=== PATIENT | male | born 1950 | race Caucasian/White ===

== ENCOUNTER 2017-06-01 21:02 | Emergency (ER) | payer OTHER ==
--- NOTE | 2017-06-01 21:22 | PDOC ---
Rapid Medical Evaluation Time Seen by Provider: 06/01/17 21:17 Medical Evaluation: 06/01/17 21:17 I have performed a brief in-person evaluation of this patient. The patient presents with a chief complaint of: pain from left hip to abdomen, has not eaten in 2 days, denies f/c/n/v/d, denies urinary symptoms Pertinent physical exam findings: O2 sat 92, fine crackles to b/l lower lobes I have ordered the following: labs, cxr The patient will proceed to the ED for further evaluation. Discharge Disposition - Diagnosis Abdominal pain - Referrals - Patient Instructions - Post Discharge Activity
[2017-06-01 21:23] VITALS: BP 116/75; PULSE 100; TEMP 98.1; BMI 29.6
--- NOTE | 2017-06-01 22:11 | PDOC ---
History of Present Illness - General History Source: Patient Exam Limitations: No Limitations - History of Present Illness Initial Comments: 06/01/17 22:29 The patient is a 66 year old male with no significant PMH (but follows with Dr. Sylvia Jacobs to control blood pressure) who presents to the emergency department with 2 days of bilateral side pain just above the hips bilaterally. He describes his pain as a discomfort localized superior to the hips bilaterally with radiation to the abdomen diffusely. The patient states he has been unable to eat for the past 2 days secondary to his abdominal pain. He denies taking medications for pain. The patient denies fevers or chills. He denies nausea or vomiting. The patent denies diarrhea and constipation. Denies chest pain, shortness of breath, headache and dizziness. Denies dysuria, frequency, urgency and hematuria. Allergies: NKA Past surgical history: None reported. Social history: No reported cigarette, alcohol, or drug use. PCP: Dr. Sylvia Jacobs <Enoc Castillo - Last Filed: 06/01/17 22:27> - General History Source: Patient <AshOrlando dwyer - Last Filed: 06/02/17 01:30> - General Chief Complaint: Pain, Acute Stated Complaint: PAIN Time Seen by Provider: 06/01/17 21:17 Past History <Enoc Castillo - Last Filed: 06/01/17 22:27> - Suicide/Smoking/Psychosocial Hx Smoking History: Never smoked Have you smoked in the past 12 months: No Information on smoking cessation initiated: No Hx Alcohol Use: No Drug/Substance Use Hx: No <Orlando Ibarra - Last Filed: 06/02/17 01:30> - Past Medical History Allergies/Adverse Reactions: Allergies Allergy/AdvReac Type Severity Reaction Status Date / Time No Known Allergies Allergy Verified 06/01/17 21:22 Home Medications: Ambulatory Orders Docusate Sodium [Colace] 100 mg PO DAILY #30 capsule 06/02/17 Ibuprofen 800 mg PO TID #30 tablet 06/02/17 Review of Systems - Review of Systems Able to Perform ROS?: Yes Comments:: 06/01/17 22:29 CONSTITUTIONAL: (+) Loss of appetite. Absent: fever, chills, diaphoresis, generalized weakness, malaise. HEENT: Absent: rhinorrhea, nasal congestion, throat pain, throat swelling, difficulty swallowing, mouth swelling, ear pain, eye pain, visual Changes CARDIOVASCULAR: Absent: chest pain, syncope, palpitations, irregular heart rate, lightheadedness , peripheral edema RESPIRATORY: Absent: cough, shortness of breath, dyspnea with exertion, orthopnea, wheezing, stridor, hemoptysis GASTROINTESTINAL: (+) Diffuse abdominal pain. Absent: abdominal distension, nausea, vomiting, diarrhea, constipation, melena, hematochezia GENITOURINARY: Absent: dysuria, frequency, urgency, hesitancy, hematuria, flank pain, genital pain MUSCULOSKELETAL: (+) Bilateral side pain above hips. Absent: arthralgia, joint swelling SKIN: Absent: rash, itching, pallor HEMATOLOGIC/IMMUNOLOGIC: Absent: easy bleeding, easy bruising, lymphadenopathy, frequent infections ENDOCRINE: Absent: unexplained weight gain, unexplained weight loss, heat intolerance, cold intolerance NEUROLOGIC: Absent: headache, focal weakness or paresthesias, dizziness, unsteady gait, seizure, mental status changes, bladder or bowel incontinence PSYCHIATRIC: Absent: anxiety, depression, suicidal or homicidal ideation, hallucinations. <Enoc Castillo - Last Filed: 06/01/17 22:27> *Physical Exam - Vital Signs Last Vital Signs Temp Pulse Resp BP Pulse Ox 98.1 F 100 H 18 116/75 92 L 06/01/17 21:20 06/01/17 21:20 06/01/17 21:20 06/01/17 21:20 06/01/17 21:20 - Physical Exam Comments: 06/01/17 22:30 GENERAL: Well developed, well nourished. Awake and alert. No acute distress. HEENT: Normocephalic, atraumatic. PERRLA, EOMI. No conjunctival pallor. Sclera are non- icteric. Moist mucous membranes. Oropharynx is clear. NECK: Supple. Full ROM. No JVD. Carotid pulses 2+ and symmetric, without bruits. No thyromegaly. No lymphadenopathy. CARDIOVASCULAR: Regular rate and rhythm. No murmurs, rubs, or gallops. Distal pulses are 2+ and symmetric. PULMONARY: No evidence of respiratory distress. Lungs clear to auscultation bilaterally. No wheezing, rales or rhonchi. ABDOMINAL: (+) Diffuse abdominal tenderness. Soft. Non-distended. No rebound or guarding. No organomegaly. Normoactive bowel sounds. MUSCULOSKELETAL Normal range of motion at all joints. No bony deformities or tenderness. No CVA tenderness. EXTREMITIES: No cyanosis. No clubbing. No edema. No calf tenderness. SKIN: Warm and dry. Normal capillary refill. No rashes. No jaundice. NEUROLOGICAL: Alert, awake, appropriate. Cranial nerves 2-12 intact. No deficits to light touch and temperature in face, upper extremities and lower extremities. No motor deficits in the in face, upper extremities and lower extremities. Normoreflexic in the upper and lower extremities. Normal speech. Toes are downgoing bilaterally. Gait is normal without ataxia. PSYCHIATRIC: Cooperative. Good eye contact. Appropriate mood and affect. <Enoc Castillo - Last Filed: 06/01/17 22:27> - Vital Signs Last Vital Signs Temp Pulse Resp BP Pulse Ox 98.1 F 100 H 18 116/75 92 L 06/01/17 21:20 06/01/17 21:20 06/01/17 21:20 06/01/17 21:20 06/01/17 21:20 <Orlando Ibarra - Last Filed: 06/02/17 01:30> ED Treatment Course - LABORATORY CBC & Chemistry Diagram: 06/01/17 22:45 06/01/17 22:45 <Orlando Ibarra - Last Filed: 06/02/17 01:30> Medical Decision Making - Medical Decision Making 06/02/17 01:28 Dr. Ibarra: The scribe's documentation has been prepared under my direction and personally reviewed by me in its entirery. I confirm that the note above accurately reflects all work, treatment, procedures, and medical decision making performed by me. <Orlando Ibarra - Last Filed: 06/02/17 01:30> *DC/Admit/Observation/Transfer - Attestations Scribe Attestion: 06/01/17 22:30 Documentation prepared by Enoc Castillo, acting as medical transcription radiology for Orlando Ibarra DO. <Enoc Castillo - Last Filed: 06/01/17 22:27> - Discharge Dispostion Admit: No <Orlando Ibarra - Last Filed: 06/02/17 01:30> Diagnosis at time of Disposition: Abdominal pain Qualifiers: Abdominal location: generalized Qualified Code(s): R10.84 - Generalized abdominal pain Diverticulosis Qualifiers: Diverticulosis site: diverticulosis of large intestine Diverticulosis bleeding : diverticulosis without bleeding Qualified Code(s): K57.30 - Diverticulosis of large intestine without perforation or abscess without bleeding - Discharge Dispostion Disposition: HOME Condition at time of disposition: Stable - Prescriptions Prescriptions: Docusate Sodium [Colace] 100 mg PO DAILY #30 capsule Ibuprofen 800 mg PO TID #30 tablet - Referrals Referrals: Sylvia Jacobs MD [Primary Care Provider] - Myles Abel DO [Staff Physician] - Flo Lamb MD [Staff Physician] - - Patient Instructions Printed Discharge Instructions: DI for Diverticulosis, Diverticular Disease ( Alternative Therapy) Additional Instructions: Drink plenty of fluids and eat more roughage ( fruits and vegetables) to decrease chances of constipation. Follow up with your doctor and one of the GI specialist to you. Print Language: MOLDOVAN - Post Discharge Activity
[2017-06-01] MEDS ORDERED: SODIUM CHLORIDE 1,000 ML IV STA (22:13)
[2017-06-01 22:51] LABS: BASO % 0.8 % (0-2.0); EOS % 5.2 % (0-4.5); HEMOGLOBIN 15.7 GM/dL (11.7-16.9); LYMPH % 11.8 % (8-40); MCH 30.3 pg (25.7-33.7); MCHC 34.1 g/dl (32.0-35.9); MEAN CELL VOLUME 89.1 fl (80-96); MEAN PLT VOLUME 8.8 fl (7.5-11.1); NEUT % 76.2 % (42.8-82.8); PLATELET COUNT 142 K/MM3 (134-434); RBC 5.16 M/mm3 (4.00-5.60); WHITE BLOOD COUNT 8.7 K/mm3 (4.0-10.0)
[2017-06-01 23:08] LABS: INR 1.12 (0.82-1.09); PROTHROMBIN TIME (PATIENT) 12.6 SEC (9.98-11.88)
[2017-06-01 23:21] LABS: ALBUMIN 4.2 g/dl (3.4-5.0); ALK PHOS 108 U/L (45-117); ANION GAP 11 (8-16); BILIRUBIN,TOTAL 0.8 mg/dL (0.2-1.0); BLOOD UREA NITROGEN 30 mg/dL (7-18); CALCIUM 9.7 mg/dL (8.5-10.1); CHLORIDE 98 mmol/L (98-107); CO2 28 mmol/L (21-32); CREATININE 1.6 mg/dL (0.7-1.3); GLUCOSE,RANDOM 99 mg/dL (74-106); POTASSIUM 3.9 mmol/L (3.5-5.1); SGOT/AST 13 U/L (15-37); SGPT/ALT 10 U/L (12-78); SODIUM 137 mmol/L (136-145); TOT PROT 8.4 g/dl (6.4-8.2)
[2017-06-02] MEDS ORDERED: KETOROLAC TROMETHAMINE 30 MG/1 ML VIAL IVPUSH ONE (01:21)
[2017-06-02] MEDS ORDERED: KETOROLAC TROMETHAMINE 30 MG/1 ML VIAL ONE (01:36)
== END 2017-06-02 01:53 | disposition home or self-care (01) ==
LOC: JER 21:02
PROC: 3E0333Z Introduction of Anti-inflammatory into Peripheral Vein, Percutaneous Approach (ICD-10-PCS; principal; 2017-06-01)
PROC: 3E0337Z Introduction of Electrolytic and Water Balance Substance into Peripheral Vein, Percutaneous Approach (ICD-10-PCS; 2017-06-01)
DX: R10.84 Generalized abdominal pain (principal); K57.30 Diverticulosis of large intestine without perforation or abscess without bleeding
CPT/HCPCS: 36415; 71046-TC-FY; 74176-TC; 80053; 82550; 83880; 84484; 85025; 85610; 99284-25; J7030

== ENCOUNTER 2017-06-04 10:27 | Emergency (ER) | payer OTHER ==
[2017-06-04 10:32] VITALS: BP 113/66; PULSE 66; TEMP 98; BMI 29.6
--- NOTE | 2017-06-04 10:59 | PDOC ---
History of Present Illness <Boby Ward - Last Filed: 06/04/17 11:16> - General History Source: Patient, Family Exam Limitations: No Limitations - History of Present Illness Initial Comments: 06/04/17 11:58 The patient is a 66 year old male, with a significant past medical history of hypertension, diabetes, gout, and an enlarged prostate, who presents to the emergency department complaining of left sided abdominal pain for approximately 3 days. The patient reports he was seen in the ER on 06/02/17 with similar symptoms and had a CT Abdomen and Pelvis, which revealed diverticulosis without diverticulitis. Patient reports he was discharged with Ibuprofen and Ducolax. However, after waking up the next morning, patient states he developed a rash along the left lower abdomen radiating into his left lower back. Patient reports associated pain and denies any fever, chills, nausea, vomiting, or diarrhea. He denies any dysuria, hematuria, frequency, or urgency. He denies any recent travel or sick contacts. pt still endorses being constipated with hard stools. Allergies: NKDA Past Surgical History: None reported Social History: Non smoker. No ETOH or recreational drug use. PCP: Dr. Sylvia Jacobs <Patricia Hassan - Last Filed: 06/04/17 11:59> - General Chief Complaint: Pain Stated Complaint: REVISIT, ABD PAIN Time Seen by Provider: 06/04/17 10:38 Past History - Past Medical History COPD: No - Immunization History Immunization Up to Date: No - Suicide/Smoking/Psychosocial Hx Smoking History: Never smoked Have you smoked in the past 12 months: No Hx Alcohol Use: No Drug/Substance Use Hx: No Substance Use Type: None <Boby Ward - Last Filed: 06/04/17 11:16> <Patricia Hassan - Last Filed: 06/04/17 11:59> - Past Medical History Allergies/Adverse Reactions: Allergies Allergy/AdvReac Type Severity Reaction Status Date / Time No Known Allergies Allergy Verified 06/04/17 10:32 Home Medications: Ambulatory Orders Docusate Sodium [Colace] 100 mg PO DAILY #30 capsule 06/02/17 Ibuprofen 800 mg PO TID #30 tablet 06/02/17 Allopurinol 300 mg PO DAILY 06/04/17 Dutasteride 0.5 mg PO DAILY 06/04/17 Furosemide [Lasix -] 40 mg PO DAILY 06/04/17 Metformin HCl [Metformin HCl ER] 500 mg PO DAILY 06/04/17 Metoprolol Succinate [Toprol Xl] 100 mg PO DAILY 06/04/17 Olmesartan/Amlodipin/Hcthiazid [Cizlcpm-Udqmzb-Sccp 40-10-25Mg] 1 each PO DAILY 06/04/17 Oxycodone HCl 5 mg PO QID PRN #8 tablet MDD 4 06/04/17 Pioglitazone HCl [Actos] 15 mg PO DAILY 06/04/17 Saxagliptin HCl [Onglyza] 5 mg PO DAILY 06/04/17 Tamsulosin HCl [Flomax] 0.4 mg PO DAILY 06/04/17 Valacyclovir HCl [Valtrex -] 1,000 mg PO TID #41 tablet 06/04/17 Review of Systems - Review of Systems Able to Perform ROS?: Yes Comments:: 06/04/17 11:58 Constitutional: Pt denies Fever, Chills, weakness, HEENT: denies vision changes, sore throat Respiratory: Denies cough, sob, hemoptysis Cardiac: denies chest pain, palpitations, lightheadedness, leg swelling Abd/GI: +Left lower abdominal pain with associated rash. denies nausea, vomiting , blood per rectum, melena, diarrhea : denies dysuria, frequency, discharge Musculoskeletal: denies back pain, joint swelling Skin: +Rash to left lower abdomen radiating to left lower back. denies bruising , erythema Neurological: denies headache, numbness, focal weakness, tingling, ataxia, weakness Hematologic: denies anemia, easy bruising, easy bleeding <Hassan,Giomilsy - Last Filed: 06/04/17 11:59> *Physical Exam - Vital Signs Last Vital Signs Temp Pulse Resp BP Pulse Ox 98 F 66 18 113/66 99 06/04/17 10:29 06/04/17 10:29 06/04/17 10:29 06/04/17 10:29 06/04/17 10:29 <EdBoby - Last Filed: 06/04/17 11:16> - Vital Signs Last Vital Signs Temp Pulse Resp BP Pulse Ox 98 F 66 18 113/66 99 06/04/17 10:29 06/04/17 10:29 06/04/17 10:29 06/04/17 10:29 06/04/17 10:29 - Physical Exam Comments: 06/04/17 11:58 GENERAL: The patient is awake, alert, and fully oriented, Nontoxic - in no acute distress. HEAD: Normocephalic, atraumatic. NECK: Normal range of motion, supple LUNGS: scant rales b/l, HEART: Regular rate and rhythm, normal S1 and S2 without murmur, rub or gallop. ABDOMEN: Soft, nontender, normoactive bowel sounds. No guarding, no rebound. . No CVA tenderness EXTREMITIES: Normal range of motion, no edema. NEUROLOGICAL: No facial assymetry, Normal speech, SKIN: +vesicular rash with erythemadous base on the LLQ along ~T10 dermatome <Patricia Hassan - Last Filed: 06/04/17 11:59> Medical Decision Making - Medical Decision Making 06/04/17 10:56 hx of gout, htn, was here recently for evaluation of abdominal pain with a negative workup and d/ c with treatment for constipation. pt notes that the day they were discharged, they noticed development of a rash in the LLQ. on exam the pt has a erythemdous rash with vesicles. no f/c, n/v/d pts rash c/w shingles will treat with valtrex and pmd fu will give rx for percocet for breakthrough pain I discussed the physical exam findings, ancillary test results and final diagnoses with the patient. I answered all of the patient's questions. The patient was satisfied with the care received and felt comfortable with the discharge plan and treatment plan. The patient will call their primary care physician within 24 hours to arrange follow-up and will return to the Emergency Department with any new, persistent or worsening symptoms. A portion of this note was documented by scribe services under my direction. I have reviewed the details of the note, within reason, and agree with the documentation with the following case summary and management plan written by me <Boby Ward - Last Filed: 06/04/17 11:16> *DC/Admit/Observation/Transfer - Discharge Dispostion Admit: No <Boby Ward - Last Filed: 06/04/17 11:16> - Attestations Scribe Attestion: 06/04/17 11:59 Documentation prepared by Patricia Hassan, acting as medical coder for Boby Ward MD. <Patricia Hassan - Last Filed: 06/04/17 11:59> Diagnosis at time of Disposition: Shingles Qualifiers: Herpes zoster complications: without complications Qualified Code(s): B02.9 - Zoster without complications - Discharge Dispostion Disposition: HOME Condition at time of disposition: Stable - Prescriptions Prescriptions: Oxycodone HCl 5 mg PO QID PRN #8 tablet MDD 4 PRN Reason: Severe Pain Valacyclovir HCl [Valtrex -] 1,000 mg PO TID #41 tablet - Referrals Referrals: Sylvia Jacobs MD [Primary Care Provider] - - Patient Instructions Printed Discharge Instructions: DI for Shingles Additional Instructions: Return to the emergency department immediately with ANY new, persistent or worsening symptoms. Take the Valtrex as prescribed Take Tylenol as needed for pain. If you have further pain you may take the oxycodone, if you take the oxycodone do not work or drive. You MUST call and follow up with your doctor in 1 week for further evaluation of your symptoms. Results were discussed with you. Please make sure your doctor reviews the results of your emergency evaluation. Print Language: YAKUT - Post Discharge Activity
== END 2017-06-04 11:28 | disposition home or self-care (01) ==
LOC: JER 10:27
DX: B02.9 Zoster without complications (principal); I10 Essential (primary) hypertension; E11.9 Type 2 diabetes mellitus without complications; Z79.84 Long term (current) use of oral hypoglycemic drugs; M10.9 Gout, unspecified; N40.0 Benign prostatic hyperplasia without lower urinary tract symptoms
CPT/HCPCS: 99282-25

== ENCOUNTER 2017-09-06 14:37 | Inpatient (IN) | payer OTHER ==
--- NOTE | 2017-09-06 15:08 | PDOC ---
History of Present Illness - General Chief Complaint: SIRS, Suspected/Possible Stated Complaint: SHINGLES, FEVER, WEAKNESS Time Seen by Provider: 09/06/17 15:05 History Source: Patient Exam Limitations: No Limitations - History of Present Illness Initial Comments: 09/06/17 16:34 66m with pmh of dormant Lupus, dm2, htn and shingles presents to the ED for 3 days of fluctuating fever (103 orally at home) and lower back pain. Shingles in the lower left flank 3 weeks ago treated with acyclovir, now with residual neuropathy along dermatome. PAtient has been increasingly short of breath and feverish but denies headache, neck pain. Past History - Past Medical History Allergies/Adverse Reactions: Allergies Allergy/AdvReac Type Severity Reaction Status Date / Time No Known Allergies Allergy Verified 09/06/17 15:14 Home Medications: Ambulatory Orders Allopurinol 300 mg PO DAILY 06/04/17 Metformin HCl [Metformin HCl ER] 500 mg PO DAILY 06/04/17 Metoprolol Succinate [Toprol Xl] 100 mg PO DAILY 06/04/17 Olmesartan/Amlodipin/Hcthiazid [Vjrferh-Pguvzl-Kbcg 40-10-25Mg] 1 each PO DAILY 06/04/17 Tamsulosin HCl [Flomax] 0.4 mg PO DAILY 06/04/17 COPD: No HTN: Yes - Immunization History Immunization Up to Date: No - Suicide/Smoking/Psychosocial Hx Smoking History: Never smoked Have you smoked in the past 12 months: No Hx Alcohol Use: No Drug/Substance Use Hx: No Substance Use Type: None Review of Systems - Review of Systems Able to Perform ROS?: Yes Is the patient limited Thai proficient: No Constitutional: Yes: See HPI, Fever HEENTM: No: Symptoms Reported Respiratory: Yes: Cough Cardiac (ROS): No: Symptoms Reported ABD/GI: No: Symptoms Reported : No: Symptoms Reported Musculoskeletal: No: Symptoms Reported Integumentary: No: Symptoms Reported Neurological: No: See HPI, Numbness, Paresthesia, Tingling, Weakness All Other Systems: Reviewed and Negative *Physical Exam - Physical Exam General Appearance: Yes: Nourished, Appropriately Dressed. No: Apparent Distress HEENT: positive: EOMI, WENDI, Normal ENT Inspection Neck: positive: Trachea midline, Normal Thyroid. negative: Tender, Decreased range of motion, Rigidity Respiratory/Chest: positive: Lungs Clear, Normal Breath Sounds, Rapid RR. negative: Chest Tender, Wheezing Cardiovascular: positive: Regular Rhythm, S1, S2, Tachycardia Gastrointestinal/Abdominal: positive: Normal Bowel Sounds, Flat, Soft. negative : Tender Rectal Exam: positive: normal exam, normal rectal tone Musculoskeletal: positive: Vertebral Tenderness (over lumbar area , and paraspinal), Other (shingle scars along dermatome over left flank. ) Extremity: positive: Normal Capillary Refill, Normal Inspection, Normal Range of Motion Integumentary: positive: Normal Color, Dry, Warm Neurologic: positive: Fully Oriented, Alert, Normal Mood/Affect ED Treatment Course - LABORATORY CBC & Chemistry Diagram: 09/06/17 16:15 09/06/17 16:15 Medical Decision Making - Medical Decision Making 09/06/17 17:35 Septic protocol ordered. This is likely a bacterial superinfection possible secondary to shingles, spinal abscess. 09/06/17 17:44 In addition to septic workup, will do Ct scan with IV contrast of lumbar spine to r/o abscess. Noted that patient's creatinine is 1.5, signed consent form. Continuous hydration given. Patient admitted to med surg. 09/06/17 17:[address] Alonzo, infectious disease and admitted to hospitalist 09/06/17 18:47 Ct Scan abd with contrast Pending 09/06/17 19:30 Patient signed out to Dr. Guaman *DC/Admit/Observation/Transfer Diagnosis at time of Disposition: Sepsis - Referrals - Patient Instructions - Post Discharge Activity
[2017-09-06] MEDS ORDERED: SODIUM CHLORIDE 1,000 ML IV STA ×2 (15:36→17:38)
[2017-09-06] MEDS ORDERED: ACETAMINOPHEN 1000 MG/100 ML VIAL (NON FORMULARY) IVPB ONE (15:46)
--- NOTE | 2017-09-06 16:12 | CON.ID ---
Consult Consult Specialty:: infectious diseases Referred by:: kingston Reason for Consultation:: sepsis,fever,back pain - History of Present Illness Chief Complaint: sob fever,shaking and chills History of Present Illness: 66 year old male with a significant past medical history of hypertension, diabetes, gout, dormant lupus, diabetes, recent shingles (05/2017), interstitial lung disease and an enlarged prostate came to the ER today with complaints of 3 days of fever and chills and a temp of 103F at home with left lower back pain and tenderness and also in the lower lumbar region patients family with him in the room and mentions that in the last 3 days patient has taken tyelnolol but the fever kept on coming and was associated with chills In the last 3 weeks, patient has been feeling fatigued and has had intermittent chills at home, worse in the past few days. Patient's family has had to apply ice and cold compresses to get his fever down. currently patient looks very sick and is having chills and fevers He is awake and alert - History Source History Provided By: Patient, Family Member Limitations to Obtaining History: No Limitations - Alcohol/Substance Use Hx Alcohol Use: No - Smoking History Smoking history: Never smoked Have you smoked in the past 12 months: No Home Medications - Allergies Allergies/Adverse Reactions: Allergies Allergy/AdvReac Type Severity Reaction Status Date / Time No Known Allergies Allergy Verified 09/07/17 03:37 - Home Medications Home Medications: Ambulatory Orders Allopurinol 300 mg PO DAILY 06/04/17 Metformin HCl [Metformin HCl ER] 500 mg PO DAILY 06/04/17 Metoprolol Succinate [Toprol Xl] 100 mg PO DAILY 06/04/17 Olmesartan/Amlodipin/Hcthiazid [Tgyxojx-Jwjsol-Xziq 40-10-25Mg] 1 each PO DAILY 06/04/17 Tamsulosin HCl [Flomax] 0.4 mg PO DAILY 06/04/17 Review of Systems - Review of Systems Constitutional: reports: Chills, Fever Eyes: reports: No Symptoms HENT: reports: No Symptoms Neck: reports: No Symptoms Cardiovascular: reports: No Symptoms Respiratory: reports: SOB, SOB on Exertion Gastrointestinal: reports: No Symptoms Genitourinary: reports: No Symptoms Musculoskeletal: reports: No Symptoms Integumentary: reports: Other (neuropathic pain) Neurological: reports: No Symptoms Endocrine: reports: No Symptoms Hematology/Lymphatic: reports: No Symptoms Psychiatric: reports: No Symptoms Physical Exam Vital Signs: Vital Signs Temperature 101.5 F H 09/06/17 15:11 Pulse Rate 140 H 09/06/17 15:11 Respiratory Rate 18 09/06/17 15:11 Blood Pressure 130/67 09/06/17 15:11 O2 Sat by Pulse Oximetry (%) 100 09/06/17 15:11 Constitutional: Yes: Well Nourished, Calm, Moderate Distress Eyes: Yes: Conjunctiva Clear HENT: Yes: Atraumatic, Normocephalic Neck: Yes: Supple, Trachea Midline Cardiovascular: Yes: Regular Rate and Rhythm, Tachycardia Respiratory: Yes: On Nasal O2, Poor Air Entry, Rhonchi Gastrointestinal: Yes: Normal Bowel Sounds, Soft Musculoskeletal: Yes: WNL Extremities: Yes: WNL Neurological: Yes: Alert, Oriented Psychiatric: Yes: Alert, Oriented Imaging - Results Chest X-ray: Report Reviewed, Image Reviewed Assessment/Plan this patient coming with shaking chills and fever and also c/o of back pain with sob patient has known history of shingles couple of months back ,no eruptions or signs of active disease patient looks very sick and i am worried about his back pain i discussed this with the family i think if there is any detoriation patient should be in the icu resp failure sepsis fever pneumonia chills plan will start patient on broad spectrum abx await for all cx reports no other issues close monitoring of the patient rest as per the team please get ct of the lumbar spine to r/o abscess
[2017-09-06] MEDS ORDERED: VANCOMYCIN 1,250 MG in DEXTROSE 5%-WATER - 250 ML IVPB ONE ×2 (16:15→16:33)
[2017-09-06] MEDS ORDERED: ACETAMINOPHEN INJECTION 100 ML IVPB ONE (16:32)
[2017-09-06] MEDS ORDERED: PIPERACILLIN/TAZOB 3.375 GM 3.375 GM/50 ML BAG IVPB ONE (16:33)
[2017-09-06] MEDS ORDERED: ACYCLOVIR 500 MG (50MG/ML) VIAL IVPUSH ONE (16:39)
[2017-09-06 17:09] LABS: BASO % 0.3 % (0-2.0); EOS % 0.4 % (0-4.5); HEMATOCRIT 39.8 % (35.4-49); HEMOGLOBIN 13.5 GM/dL (11.7-16.9); LYMPH % 4.6 % (8-40); MCH 30.9 pg (25.7-33.7); MCHC 33.9 g/dl (32.0-35.9); MEAN CELL VOLUME 91.3 fl (80-96); MEAN PLT VOLUME 9.4 fl (7.5-11.1); MONO % 5.2 % (3.8-10.2); NEUT % 89.5 % (42.8-82.8); PLATELET COUNT 159 K/MM3 (134-434); RBC 4.36 M/mm3 (4.00-5.60); RDW 16.3 % (11.9-15.9); WHITE BLOOD COUNT 9.3 K/mm3 (4.0-10.0)
[2017-09-06 17:11] LABS: INR 1.27 (0.82-1.09); PROTHROMBIN TIME (PATIENT) 14.3 SEC (9.7-13.0)
[2017-09-06 17:14] LABS: ACTIVATED PTT 39.2 SECONDS (25.2-36.5); ALBUMIN 3.6 g/dl (3.4-5.0); ANION GAP 11 (8-16); BLOOD UREA NITROGEN 29 mg/dL (7-18); CALCIUM 9.3 mg/dL (8.5-10.1); CHLORIDE 103 mmol/L (98-107); CO2 21 mmol/L (21-32); CREATININE 1.5 mg/dL (0.7-1.3); GLUCOSE,RANDOM 145 mg/dL (74-106); POTASSIUM 4.1 mmol/L (3.5-5.1); SGOT/AST 44 U/L (15-37); SGPT/ALT 51 U/L (12-78); SODIUM 135 mmol/L (136-145)
[2017-09-06 17:16] LABS: ALK PHOS 88 U/L (45-117); BILIRUBIN,TOTAL 0.7 mg/dL (0.2-1.0); TOT PROT 8.2 g/dl (6.4-8.2)
[2017-09-06 17:22] LABS: VENOUS PC02 35.7 mmHg (38-52); VENOUS PH 7.4 (7.32-7.42); VENOUS PO2 37.3 mmHg (28-48)
[2017-09-06] MEDS ORDERED: ACYCLOVIR INJECTION 800 MG in DEXTROSE 5%-WATER - 100 ML IVPB ONE (17:27)
[2017-09-06] MEDS: PIPERACILLIN/TAZOB 3.375 GM 3.375 GM in DEXTROSE 5%-WATER - 50 ML IVPB SCH (17:30)
[2017-09-06] MEDS ORDERED: PIPERACILLIN/TAZOB 3.375 GM 3.375 GM in DEXTROSE 5%-WATER - 50 ML IVPB SCH (18:00)
--- NOTE | 2017-09-06 18:16 | PN ---
Physical Exam: SUBJECTIVE: Patient seen and examined OBJECTIVE: Vital Signs Period Temp Pulse Resp BP Sys/Paul Pulse Ox Last 24 Hr 100.1 F-101.5 F 112-140 18 130-131/67-71 98-100 GENERAL: The patient is awake, alert, and fully oriented, in no acute distress. HEAD: Normal with no signs of trauma. EYES: PERRL, extraocular movements intact, sclera anicteric, conjunctiva clear. No ptosis. ENT: Ears normal, nares patent, oropharynx clear without exudates, moist mucous membranes. NECK: Trachea midline, full range of motion, supple. LUNGS: Breath sounds equal, clear to auscultation bilaterally, no wheezes, no crackles, no accessory muscle use. HEART: Regular rate and rhythm, S1, S2 without murmur, rub or gallop. ABDOMEN: Soft, nontender, nondistended, normoactive bowel sounds, no guarding, no rebound, no hepatosplenomegaly, no masses. EXTREMITIES: 2+ pulses, warm, well-perfused, no edema. NEUROLOGICAL: Cranial nerves II through XII grossly intact. Normal speech, gait not observed. PSYCH: Normal mood, normal affect. SKIN: Warm, dry, normal turgor, no rashes or lesions noted Laboratory Results - last 24 hr 09/06/17 09/06/17 09/06/17 16:15 16:15 16:15 WBC 9.3 RBC 4.36 Hgb 13.5 Hct 39.8 MCV 91.3 MCH 30.9 MCHC 33.9 RDW 16.3 H Plt Count 159 MPV 9.4 Absolute Neuts (auto) 8.3 Neutrophils % 89.5 H Lymphocytes % 4.6 L D Monocytes % 5.2 Eosinophils % 0.4 D Basophils % 0.3 Nucleated RBC % 0 PT with INR 14.30 H INR 1.27 H PTT (Actin FS) 39.2 H VBG pH 7.40 POC VBG pCO2 35.7 L POC VBG pO2 37.3 Mixed VBG HCO3 21.6 Sodium Potassium Chloride Carbon Dioxide Anion Gap BUN Creatinine Creat Clearance w eGFR Random Glucose Lactic Acid Calcium Total Bilirubin AST ALT Alkaline Phosphatase Troponin I Total Protein Albumin 09/06/17 09/06/17 09/06/17 16:15 16:15 16:15 WBC RBC Hgb Hct MCV MCH MCHC RDW Plt Count MPV Absolute Neuts (auto) Neutrophils % Lymphocytes % Monocytes % Eosinophils % Basophils % Nucleated RBC % PT with INR INR PTT (Actin FS) VBG pH POC VBG pCO2 POC VBG pO2 Mixed VBG HCO3 Sodium 135 L Potassium 4.1 Chloride 103 Carbon Dioxide 21 D Anion Gap 11 BUN 29 H Creatinine 1.5 H Creat Clearance w eGFR 46.54 Random Glucose 145 H D Lactic Acid 1.7 Calcium 9.3 Total Bilirubin 0.7 AST 44 H D ALT 51 D Alkaline Phosphatase 88 Troponin I 0.02 D Total Protein 8.2 Albumin 3.6 Active Medications Generic Name Dose Route Start Last Admin Trade Name Freq PRN Reason Stop Dose Admin Vancomycin HCl 1,250 mg/ 250 mls @ 250 mls/2 hr 09/06/17 16:33 Dextrose IVPB 09/06/17 18:32 ONCE ONE Protocol Piperacillin Sod/Tazobactam 50 mls @ 100 mls/hr 09/06/17 16:33 09/06/17 17:30 Sod 3.375 gm/ Dextrose IVPB 100 mls/hr Q8H-IV VANITA Administration Protocol Sodium Chloride 1,000 mls @ 1,000 mls/hr 09/06/17 17:38 09/06/17 17:45 Normal Saline - IV 09/06/17 18:37 1,000 mls/hr ASDIR STA Administration ASSESSMENT/PLAN:
--- NOTE | 2017-09-06 18:35 | PDOC ---
Attending Attestation - HPI HPI: 09/06/17 18:46 The patient is a 66 year old male with a significant past medical history of diabetes, hypertension, dormant Lupus, and shingles who presents to the emergency department for evaluation of 3 days of fever and lower back pain. The patient reports moderate back pain localized on his spine. He reports associated symptoms of shortness of breath and fever with T Max 103. He reports prior history of shingles in the left flank 3 weeks ago which was treated with acyclovir. The patient denies chest pain, neck pain headache, and dizziness. Denies chills , nausea, vomiting, any bowel/urinary symptoms. Allergies: NKDA Social History: No reported alcohol, cigarette, or drug use. - Physicial Exam PE: Vitals: Triage Vital signs reviewed General Appearance: no acute distress, well nourished well developed, Head: Atraumatic, normocephalic Eyes: Pupils equal reactive round, extraocular movement intact Neck: Supple Chest Wall: Nontender Cardiac: Regular rate and rhythm, no murmurs, no rubs, no gallops, Lungs: Clear to auscultation bilateral, good air movement bilaterally, Abdomen: Soft, nondistended, nontender to palpation Back: (+)diffuse tenderness to palpation along lower spine. Extremities: Full range of motion to all extremities, no cyanosis, clubbing, or edema Skin: (+)Shingles chronic to left lower back. Warm and dry. Neuro: (+)Weak. Psych: normal mood, normal affect. - Medical Decision Making The patient is a 66 year old male with a significant past medical history of diabetes, hypertension, dormant Lupus, and shingles who presents to the emergency department for evaluation of 3 days of fever and lower back pain. Plan: Chest X-Ray EKG Labs UA <Scott Bolton - Last Filed: 09/06/17 18:46> - Resident Resident Name: Nito Russell - ED Attending Attestation I have performed the following: I have examined & evaluated the patient, The case was reviewed & discussed with the resident, I agree w/resident's findings & plan, Exceptions are as noted - Medical Decision Making Patient presented to the emergency department with 3 day history of fever low back pain. Patient with three-week history of shingles infection in similar distribution Given concern for possible deep tissue spread and spinal cord involvement CT lumbar spine has been ordered patient has been broadly covered with broad- spectrum antibiotics Infectious disease has been consult. Patient with normal neurologic examination. He has no weakness no numbness good reflexes and a normal rectal examination Patient to be admitted to medicine for further management. <Yousuf Mendoza - Last Filed: 09/06/17 19:53> Attestations - Attestations Documentation prepared by Scott Bolton, acting as medical detailist for Yousuf Mendoza MD. <Scott Bolton - Last Filed: 09/06/17 18:46>
--- NOTE | 2017-09-06 21:58 | HP ---
CHIEF COMPLAINT: fever, chills, general malaise PCP: Dr. Sylvia Block HISTORY OF PRESENT ILLNESS: Patient is a 66 year old male with a significant past medical history of hypertension, diabetes, gout, dormant lupus, diabetes, recent shingles (05/2017) , interstitial lung disease and an enlarged prostate. He comes to the ER today with complaints of 3 days of fever and chills and a temp of 103F at home with left lower back pain and tenderness. 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 Patient also endorses weakness and profound fatigue. His family at bedside and report that in the last 3 weeks, patient has been feeling fatigued and has had intermittent chills at home, worse in the past few days. Patient's family has had to apply ice and cold compresses to get his fever down. Based on the patient's symptoms, and recent shingles outbreak, will initiated septic protocol. A CT scan of lumbar spine was done to rule out abscess. ER course was notable for: (1) chest xray with acute and chronic lung changes, extensive interstitial lung disease on CT scan 06/08 (2) sepsis. heart rate 140s, tachycardia, 103.F, burke (3) BURKE 1.5 (4) persistent back pain an tenderness (5) zosyn, vanco, acyclovir Recent Travel: PAST MEDICAL HISTORY: PAST SURGICAL HISTORY: Social History: Smoking: n/a Alcohol: n.a Drugs: n.a Family History: Allergies No Known Allergies Allergy (Verified 09/06/17 15:14) HOME MEDICATIONS: Home Medications Medication Instructions Recorded Allopurinol 300 mg PO DAILY 06/04/17 Metformin HCl [Metformin HCl ER] 500 mg PO DAILY 06/04/17 Metoprolol Succinate [Toprol Xl] 100 mg PO DAILY 06/04/17 Olmesartan/Amlodipin/Hcthiazid 1 each PO DAILY 06/04/17 [[id number] 40-10-25Mg] Tamsulosin HCl [Flomax] 0.4 mg PO DAILY 06/04/17 PHYSICAL EXAMINATION Vital Signs - 24 hr 09/06/17 09/06/17 09/06/17 15:11 17:22 17:45 Temperature 101.5 F H 100.1 F H Pulse Rate 140 H Pulse Rate [ 125 H 112 H Apical] Respiratory 18 Rate Blood Pressure 130/67 Blood Pressure 131/71 [Left Arm] O2 Sat by Pulse 100 98 98 Oximetry (%) GENERAL: Awake, alert, and fully oriented, in no acute distress. HEAD: Normal with no signs of trauma. EYES: Pupils equal, round and reactive to light, extraocular movements intact, sclera anicteric, conjunctiva clear. No lid lag. EARS, NOSE, THROAT: Ears normal, nares patent, oropharynx clear without exudates. Moist mucous membranes. NECK: Normal range of motion, supple without lymphadenopathy, JVD, or masses. LUNGS: diminished lungs sounds bilaterally, no wheezing, on 2 liters of nasal cannula HEART: tachycardia 140s on admission ABDOMEN: Soft, nontender, not distended, normoactive bowel sounds, no guarding, no rebound, no masses. No hepatomegaly or splenomegaly. MUSCULOSKELETAL: Normal range of motion at all joints. No bony deformities or tenderness. No CVA tenderness. UPPER EXTREMITIES: No peripheral edema. LOWER EXTREMITIES: No peripheral edema. NEUROLOGICAL: Normal speech. PSYCHIATRIC: Cooperative. Good eye contact. Appropriate mood and affect. SKIN: left flank dermatone with evidence of recent shingles outbreak, no open lesions. Laboratory Results - last 24 hr 09/06/17 09/06/17 09/06/17 16:15 16:15 16:15 WBC 9.3 RBC 4.36 Hgb 13.5 Hct 39.8 MCV 91.3 MCH 30.9 MCHC 33.9 RDW 16.3 H Plt Count 159 MPV 9.4 Absolute Neuts (auto) 8.3 Neutrophils % 89.5 H Lymphocytes % 4.6 L D Monocytes % 5.2 Eosinophils % 0.4 D Basophils % 0.3 Nucleated RBC % 0 PT with INR 14.30 H INR 1.27 H PTT (Actin FS) 39.2 H VBG pH 7.40 POC VBG pCO2 35.7 L POC VBG pO2 37.3 Mixed VBG HCO3 21.6 Sodium Potassium Chloride Carbon Dioxide Anion Gap BUN Creatinine Creat Clearance w eGFR Random Glucose Lactic Acid Calcium Total Bilirubin AST ALT Alkaline Phosphatase Troponin I Total Protein Albumin 09/06/17 09/06/17 09/06/17 16:15 16:15 16:15 WBC RBC Hgb Hct MCV MCH MCHC RDW Plt Count MPV Absolute Neuts (auto) Neutrophils % Lymphocytes % Monocytes % Eosinophils % Basophils % Nucleated RBC % PT with INR INR PTT (Actin FS) VBG pH POC VBG pCO2 POC VBG pO2 Mixed VBG HCO3 Sodium 135 L Potassium 4.1 Chloride 103 Carbon Dioxide 21 D Anion Gap 11 BUN 29 H Creatinine 1.5 H Creat Clearance w eGFR 46.54 Random Glucose 145 H D Lactic Acid 1.7 Calcium 9.3 Total Bilirubin 0.7 AST 44 H D ALT 51 D Alkaline Phosphatase 88 Troponin I 0.02 D Total Protein 8.2 Albumin 3.6 ASSESSMENT/PLAN: Patient is a 66 year old male with a significant past medical history of hypertension, diabetes, gout, dormant lupus, diabetes, recent shingles (05/2017) , interstitial lung disease and an enlarged prostate. He comes to the ER today with complaints of 3 days of fever and chills and a temp of 103F at home with left lower back pain and tenderness. 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 ID/Sepsis: Unclear etiology, recent shingles outbreak with general malaise after, pt felt like he never fully recovered. Now chest xray shows acute on chronic changes and notably short of breath at rest. Will consult pulm. on nasal cannula @ 2 liters. Duonebs for shortness of breath. Has history of interstitial lung disease seen on CT done here 05/2017. Given vanco, zosyn and acyclovir in the ED. As per ID, no further need for acyclovir. Tylenol for fevers. Lactic acid within normal limits. Will continue to hydrate. Blood and urine cultures pending Recent shingles 3 months ago, left flank: No open lesions, skin appears healed. Back pain and tenderness noted, CT lumbar spine ordered to rule out abscess. Consider HIV testing. Pulmonary Interstitial lung disease/shortness of breath. On oxygen support, monitor airway. duonebs. Pulm. consult. Card: Hypertension: hold cardiac medications in the setting of sepsis. Endocrine: Diabetes: hold metformin. Start SS. : Enlarged prostated: monitor intake and ouput Renal BURKE: Hydrate. Renal consulted by ED provider. fen normal saline @ 75 monitor electrolytes regular diet as tolerated prophy Heparin Protonix Visit type - Emergency Visit Emergency Visit: Yes ED Registration Date: 09/07/17 Care time: The patient presented to the Emergency Department on the above date and was hospitalized for further evaluation of their emergent condition. - New Patient This patient is new to me today: Yes Date on this admission: 09/07/17 - Critical Care Critical Care patient: No Hospitalist Screening - Colonoscopy Questionnaire Colonoscopy Questionnaire: Colonoscopy Questionnaire - Patient: 50 - 75 years old and never had a screening colonoscopy: Unknown History of colon or rectal polyps, or CA: Unknown History of IBD, Crohn's disease or UC: Unknown History of abdominal radiation therapy as a child: Unknown - Relative: 1 with colon or rectal CA, or polyps at age 60 or younger: Unknown Colon or rectal CA diagnosed at age 45 or younger: Unknown Multiple relatives with colon or rectal CA: Unknown - Outcome: Screening Result: Negative Screen
[2017-09-06] MEDS: ALBUTEROL SO4 2.5/IPRATROPIUM 0.5 INH SOL 3 ML VIAL.NEB. NEB SCH (23:00)
[2017-09-06] MEDS: INSULIN SLIDING SCALE (NOVOLOG) 1 VIAL SQ SCH (23:10)
[2017-09-06] MEDS ORDERED: HEPARIN NA (PORCINE) 5,000 UNITS/ML 1ML VIAL ONE (23:12)
[2017-09-06] MEDS ORDERED: ALBUTEROL SO4 2.5/IPRATROPIUM 0.5 INH SOL 3 ML VIAL.NEB. NEB ONE (23:12)
[2017-09-06] MEDS: HEPARIN NA (PORCINE) 5,000 UNITS/ML 1ML VIAL SQ SCH (23:28)
[2017-09-07] MEDS ORDERED: ACETAMINOPHEN 1000 MG/100 ML VIAL (NON FORMULARY) IVPB ONE (00:06)
[2017-09-07] MEDS ORDERED: SODIUM CHLORIDE 1,000 ML IV STA (00:06)
[2017-09-07] MEDS ORDERED: ACETAMINOPHEN INJECTION 100 ML IVPB ONE (00:07)
[2017-09-07] MEDS ORDERED: IBUPROFEN 400 MG TABLET (FP) PO ONE ×2 (01:24→01:56)
[2017-09-07 02:30] LABS: URINE APPEARANCE CLEAR; URINE BILIRUBIN NEGATIVE (<2.0 mg/dL); URINE COLOR LTYELLOW; URINE GLUCOSE (UA) 1+ (NEGATIVE); URINE KETONE TRACE (NEGATIVE); URINE LEUK ESTERASE NEGATIVE (NEGATIVE); URINE NITRITE NEGATIVE (NEGATIVE); URINE UROBILINOGEN NEGATIVE mg/dL (0.2-1.0)
[2017-09-07] MEDS ORDERED: PIPERACILLIN/TAZOB 3.375 GM 3.375 GM/50 ML BAG IVPB ONE ×3 (02:31→18:55)
[2017-09-07 02:36] LABS: URINE PROTEIN 1+ (NEGATIVE)
[2017-09-07 02:38] LABS: URINE BACTERIA RARE /hpf (NONE SEEN); URINE MUCUS RARE
[2017-09-07] MEDS: PIPERACILLIN/TAZOB 3.375 GM 3.375 GM in DEXTROSE 5%-WATER - 50 ML IVPB SCH ×3 (02:40→18:30)
[2017-09-07] MEDS: HEPARIN NA (PORCINE) 5,000 UNITS/ML 1ML VIAL SQ SCH ×3 (06:15→23:13)
[2017-09-07] MEDS ORDERED: HEPARIN NA (PORCINE) 5,000 UNITS/ML 1ML VIAL ONE ×2 (06:26→14:14)
[2017-09-07] MEDS: INSULIN SLIDING SCALE (NOVOLOG) 1 VIAL SQ SCH ×4 (06:45→23:14)
[2017-09-07] MEDS ORDERED: INSULIN (NOVOLOG) ASPART 100 UNITS/ML 10ML VIAL ONE ×2 (06:48→17:02)
[2017-09-07] MEDS ORDERED: ACETAMINOPHEN 325 MG TABLET (FP) PO PRN ×2 (07:40→21:55)
[2017-09-07 08:15] LABS: BASO % 0.5 % (0-2.0); EOS % 0.1 % (0-4.5); HEMATOCRIT 32.7 % (35.4-49); MCH 30.7 pg (25.7-33.7); MCHC 33.6 g/dl (32.0-35.9); MEAN CELL VOLUME 91.3 fl (80-96); MEAN PLT VOLUME 9.4 fl (7.5-11.1); MONO % 7.9 % (3.8-10.2); NEUT % 83.5 % (42.8-82.8); PLATELET COUNT 120 K/MM3 (134-434); RBC 3.58 M/mm3 (4.00-5.60); RDW 15.8 % (11.9-15.9); WHITE BLOOD COUNT 7.3 K/mm3 (4.0-10.0)
[2017-09-07] MEDS: ALBUTEROL SO4 2.5/IPRATROPIUM 0.5 INH SOL 3 ML VIAL.NEB. NEB SCH ×3 (08:25→16:33)
[2017-09-07 08:28] LABS: ALBUMIN 2.6 g/dl (3.4-5.0); ANION GAP 9 (8-16); BILIRUBIN,TOTAL 0.7 mg/dL (0.2-1.0); BLOOD UREA NITROGEN 17 mg/dL (7-18); CALCIUM 8.3 mg/dL (8.5-10.1); CHLORIDE 108 mmol/L (98-107); CHOLESTEROL 77 mg/dL (50-200); CO2 21 mmol/L (21-32); GLUCOSE,RANDOM 130 mg/dL (74-106); MAGNESIUM 1.6 mg/dL (1.8-2.4); POTASSIUM 3.7 mmol/L (3.5-5.1); SGOT/AST 74 U/L (15-37); SGPT/ALT 92 U/L (12-78); SODIUM 138 mmol/L (136-145); TOT PROT 6.4 g/dl (6.4-8.2); TRIGLYCERIDES 63 mg/dL (35-160)
[2017-09-07 08:29] LABS: ALK PHOS 78 U/L (45-117); HDL CHOLESTEROL 28 mg/dL (40-60)
[2017-09-07] MEDS ORDERED: MAGNESIUM SULF 50% (8.12 MEQ/2 ML-1 GM VIAL) IVPB ONE (08:35)
[2017-09-07] MEDS ORDERED: ALBUTEROL SO4 2.5/IPRATROPIUM 0.5 INH SOL 3 ML VIAL.NEB. NEB ONE ×2 (09:06→12:09)
--- NOTE | 2017-09-07 11:41 | EKG ---
Test Reason : Blood Pressure : / mmHG Vent. Rate : 120 BPM Atrial Rate : 120 BPM P-R Int : 132 ms QRS Dur : 092 ms QT Int : 318 ms P-R-T Axes : 048 047 038 degrees QTc Int : 449 ms SINUS TACHYCARDIA INFERIOR INFARCT , AGE UNDETERMINED ABNORMAL ECG WHEN COMPARED WITH ECG OF 24-AUG-2007 06:18, NO SIGNIFICANT CHANGE WAS FOUND Confirmed by ELIEL MTZ MD ([id number]) on 09/07/2017 11:41:08 AM Referred By: Confirmed By:ELIEL MTZ MD
--- NOTE | 2017-09-07 12:00 | CONSULT ---
Consult - text type - Consultation Consultation Note: Renal Consult for CKD This is a 66 year old gentleman with PMHx of SLE, Hypertension, DM, Gout, recent shingles, interstital lung disease, BPH who presented with fevers. + Fevers and back pain at home. No N/V/D or Abd pain. + Cough but is chronic in nature. No dysuria, flank pain, hematuira. No sick contacts. Pt had recent shingles tx with anti-virals with resolution of rash but some pain persisted. No LE weakness. PMhx: as above Allergies: NKDA Family Hx: NC Social Hx: No T/A/D ROS: As per HPI Home Medications Medication Instructions Recorded Allopurinol 300 mg PO DAILY 06/04/17 Metformin HCl [Metformin HCl ER] 500 mg PO DAILY 06/04/17 Metoprolol Succinate [Toprol Xl] 100 mg PO DAILY 06/04/17 Olmesartan/Amlodipin/Hcthiazid 1 each PO DAILY 06/04/17 [Emnubwx-Hchnmo-Aaiy 40-10-25Mg] Tamsulosin HCl [Flomax] 0.4 mg PO DAILY 06/04/17 Vital Signs Temperature 98.5 F 09/07/17 08:01 Pulse Rate 85 09/07/17 08:01 Respiratory Rate 16 09/07/17 06:41 Blood Pressure 102/61 09/07/17 08:01 O2 Sat by Pulse Oximetry (%) 98 09/07/17 08:01 Intake & Output 09/04/17 09/05/17 09/06/17 09/07/17 23:59 23:59 23:59 23:59 Weight 84.822 kg NAD awake and alert on NC O2 MMM, No JVD Neck supple RRR, no M/R Course BS, no rales soft NT/ND No LE edema, clubbing or cyanosis healed rash on Left side of lower back CBC, BMP 09/07/17 07:48 09/07/17 07:48 Current Medications Acetaminophen (Tylenol -) 650 mg PO Q6H PRN PRN Reason: FEVER Albuterol/Ipratropium (Duoneb -) 1 amp NEB RQID [facility] Last Admin: 09/07/17 08:25 Dose: 1 amp Heparin Sodium (Porcine) (Heparin -) 5,000 unit SQ TID [facility] Last Admin: 09/07/17 06:15 Dose: 5,000 unit Piperacillin Sod/Tazobactam (Sod 3.375 gm/ Dextrose) 50 mls @ 100 mls/hr IVPB Q8H-IV VANITA; Protocol Last Admin: 09/07/17 10:34 Dose: 100 mls/hr Insulin Aspart (Novolog Vial Sliding Scale -) 1 vial SQ ACHS VANITA; Protocol Last Admin: 09/07/17 11:14 Dose: Not Given 66 year old gentleman with PMHx of SLE, Hypertension, DM, Gout, recent shingles , interstital lung disease, BPH who presented with fevers. #Fevers #BURKE/CKD #SLE #Hx of Hypertension #Anemia #DM Type 2 Renal function improved s/p IVF (contrast exposure yesterday) Etiology of fevers unclear, CT of Lumbar spine showed no collection to have CT of the Chest and Abd as per ID recs LFTs slightly elevated Continue empiric Abx as per ID f/u cultures will check CHERRY, Anti-DS DNA off antihypertensive mediations now, trend BP Trend H/H continue Insulin SC Start maintenance IVF Thank you for this referral Will follow Jaswant Sparrow DO
[2017-09-07] MEDS ORDERED: SODIUM CHLORIDE 0.45%/POT 20 MEQ/1,000 ML INFUS.BAG IV SCH (12:30)
--- NOTE | 2017-09-07 13:28 | PN ---
Progress Note, Physician History of Present Illness: patient looking very sick chills and fever with sob slight confusion going to icu still with resp shortness of breath patient also having increase live enzymes daughter in the room - Current Medication List Current Medications: Active Medications Acetaminophen (Tylenol -) 650 mg PO Q6H PRN PRN Reason: FEVER Albuterol/Ipratropium (Duoneb -) 1 amp NEB RQID [facility] Last Admin: 09/07/17 12:25 Dose: 1 amp Heparin Sodium (Porcine) (Heparin -) 5,000 unit SQ TID VANITA Last Admin: 09/07/17 06:15 Dose: 5,000 unit Piperacillin Sod/Tazobactam (Sod 3.375 gm/ Dextrose) 50 mls @ 100 mls/hr IVPB Q8H-IV VANITA; Protocol Last Admin: 09/07/17 10:34 Dose: 100 mls/hr Potassium Chloride/Sodium Chloride (1/2ns+20meq Kcl) 20 meq in 1,000 mls @ 75 mls/hr IV ASDIR VANITA Insulin Aspart (Novolog Vial Sliding Scale -) 1 vial SQ ACHS [facility]; Protocol Last Admin: 09/07/17 11:14 Dose: Not Given - Objective Vital Signs: Vital Signs Temperature 98.5 F 09/07/17 08:01 Pulse Rate 85 09/07/17 08:01 Respiratory Rate 16 09/07/17 06:41 Blood Pressure 102/61 09/07/17 08:01 O2 Sat by Pulse Oximetry (%) 98 09/07/17 08:01 Constitutional: Yes: Anxious, Moderate Distress, Other (chills and fever) Neck: Yes: Supple, Trachea Midline Cardiovascular: Yes: Regular Rate and Rhythm, Tachycardia Respiratory: Yes: On Nasal O2, Poor Air Entry, SOB, Other Musculoskeletal: Yes: WNL Extremities: Yes: WNL Neurological: Yes: Alert, Oriented Psychiatric: Yes: Alert, Oriented Labs: CBC, BMP 09/07/17 07:48 09/07/17 07:48 INR, PTT INR 1.27 (0.82-1.09) H 09/06/17 16:15 Assessment/Plan patient continues to look very sick sob still with chills and fever had his ct of chest and abd done Problem List - Problems (1) Acute respiratory failure with hypoxia Code(s): J96.01 - ACUTE RESPIRATORY FAILURE WITH HYPOXIA (2) Shingles Code(s): B02.9 - ZOSTER WITHOUT COMPLICATIONS Qualifiers: Herpes zoster complications: without complications Qualified Code(s): B02.9 - Zoster without complications (3) Pneumonia Code(s): J18.9 - PNEUMONIA, UNSPECIFIED ORGANISM (4) SLE (systemic lupus erythematosus) Code(s): M32.9 - SYSTEMIC LUPUS ERYTHEMATOSUS, UNSPECIFIED 5 sepsis 6 increased enzymes plan continue zosyn will add levaquin will also get legionella cx results noted sputum cx resp support pul on board cc time 40 min
[2017-09-07] MEDS ORDERED: ACETAMINOPHEN 325 MG TABLET (FP) ONE (15:40)
--- NOTE | 2017-09-07 15:41 | PN ---
Progress Note (short form) - Note Progress Note: PULMONARY CONSULTATION DICTATED 09/07/17 IMP ACUTE HYPOXIC RESPIRATORY FAILURE [facility] LIKELY PNEUMONIA SIRS ILD MEDIASTINAL ADENOPATHY ?REACTIVE SLE DM RECENT SHINGLES PLAN IV ABX PER ID O2 INHALED BRONCHODILATORS SHORT COURSE OF STEROIDS ABG CULTURES LEGIONELLA URINARY ANTIGEN PFTS OUTPATIENT F/U CHEST X-RAYS F/U CHEST CT TO DOCUMENT RESOLUTION OF [facility] ICU MONITORING DR SMART Problem List - Problems (1) Acute respiratory failure with hypoxia Code(s): J96.01 - ACUTE RESPIRATORY FAILURE WITH HYPOXIA (2) Shingles Code(s): B02.9 - ZOSTER WITHOUT COMPLICATIONS Qualifiers: Herpes zoster complications: without complications Qualified Code(s): B02.9 - Zoster without complications (3) Pneumonia Code(s): J18.9 - PNEUMONIA, UNSPECIFIED ORGANISM (4) SLE (systemic lupus erythematosus) Code(s): M32.9 - SYSTEMIC LUPUS ERYTHEMATOSUS, UNSPECIFIED
[2017-09-07] MEDS ORDERED: methylPREDNISolone NA SUCC 40 MG/1 ML VIAL IVPUSH ONE (15:58)
[2017-09-07] MEDS ORDERED: methylPREDNISolone NA SUCC 40 MG/1 ML VIAL IVPUSH SCH ×2 (16:00→22:00)
[2017-09-07] MEDS ORDERED: methylPREDNISolone NA SUCC 40 MG/1 ML VIAL ONE (16:02)
--- NOTE | 2017-09-07 16:08 | PN ---
Physical Exam: SUBJECTIVE: Patient seen and examined in the ER. Was informed that patient was in respiratory distress. OBJECTIVE: On exam, patient was in moderate respiratory distress with a NRB mask. seen by pulm, socrates initiated. ABG ordered, transfer to ICU for close airway monitoring. Vital Signs Period Temp Pulse Resp BP Sys/Paul Pulse Ox Last 24 Hr 98.4 F-102.1 F 68-141 16-20 98-131/58-71 86-98 GENERAL: air hunger, in moderate respiratory distress, anxious HEAD: Normal with no signs of trauma. EYES: Pupils equal, round and reactive to light, extraocular movements intact, sclera anicteric, conjunctiva clear. No lid lag. EARS, NOSE, THROAT: Ears normal, nares patent, oropharynx clear without exudates. Moist mucous membranes. NECK: Normal range of motion, supple without lymphadenopathy, JVD, or masses. LUNGS: very diminished breath sounds, tachypnea HEART: tachycardia 140s ABDOMEN: Soft, nontender, not distended, normoactive bowel sounds MUSCULOSKELETAL: Normal range of motion at all joints. No bony deformities or tenderness. No CVA tenderness. UPPER EXTREMITIES: No peripheral edema. LOWER EXTREMITIES: No peripheral edema. PSYCHIATRIC: anxious SKIN: left flank dermatone with evidence of recent shingles outbreak, no open lesions, just evidence of past shingles. Laboratory Results - last 24 hr 09/06/17 09/06/17 09/06/17 00:45 16:15 16:15 WBC 9.3 RBC 4.36 Hgb 13.5 Hct 39.8 MCV 91.3 MCH 30.9 MCHC 33.9 RDW 16.3 H Plt Count 159 MPV 9.4 Absolute Neuts (auto) 8.3 Neutrophils % 89.5 H Lymphocytes % 4.6 L D Monocytes % 5.2 Eosinophils % 0.4 D Basophils % 0.3 Nucleated RBC % 0 PT with INR 14.30 H INR 1.27 H PTT (Actin FS) 39.2 H VBG pH POC VBG pCO2 POC VBG pO2 Mixed VBG HCO3 Sodium Potassium Chloride Carbon Dioxide Anion Gap BUN Creatinine Creat Clearance w eGFR POC Glucometer Random Glucose Hemoglobin A1c % Lactic Acid Calcium Magnesium Total Bilirubin AST ALT Alkaline Phosphatase Creatine Kinase 55 Troponin I 0.07 H D Total Protein Albumin Triglycerides Cholesterol Total LDL Cholesterol HDL Cholesterol Urine Color Urine Appearance Urine pH Ur Specific [place] Urine Protein Urine Glucose (UA) Urine Ketones Urine Blood Urine Nitrite Urine Bilirubin Urine Urobilinogen Ur Leukocyte Esterase Urine WBC (Auto) Urine RBC (Auto) Urine Bacteria Urine Mucus 09/06/17 09/06/17 09/06/17 16:15 16:15 16:15 WBC RBC Hgb Hct MCV MCH MCHC RDW Plt Count MPV Absolute Neuts (auto) Neutrophils % Lymphocytes % Monocytes % Eosinophils % Basophils % Nucleated RBC % PT with INR INR PTT (Actin FS) VBG pH 7.40 POC VBG pCO2 35.7 L POC VBG pO2 37.3 Mixed VBG HCO3 21.6 Sodium 135 L Potassium 4.1 Chloride 103 Carbon Dioxide 21 D Anion Gap 11 BUN 29 H Creatinine 1.5 H Creat Clearance w eGFR 46.54 POC Glucometer Random Glucose 145 H D Hemoglobin A1c % Lactic Acid 1.7 Calcium 9.3 Magnesium Total Bilirubin 0.7 AST 44 H D ALT 51 D Alkaline Phosphatase 88 Creatine Kinase Troponin I Total Protein 8.2 Albumin 3.6 Triglycerides Cholesterol Total LDL Cholesterol HDL Cholesterol Urine Color Urine Appearance Urine pH Ur Specific [place] Urine Protein Urine Glucose (UA) Urine Ketones Urine Blood Urine Nitrite Urine Bilirubin Urine Urobilinogen Ur Leukocyte Esterase Urine WBC (Auto) Urine RBC (Auto) Urine Bacteria Urine Mucus 09/06/17 09/06/17 09/07/17 16:15 23:09 02:10 WBC RBC Hgb Hct MCV MCH MCHC RDW Plt Count MPV Absolute Neuts (auto) Neutrophils % Lymphocytes % Monocytes % Eosinophils % Basophils % Nucleated RBC % PT with INR INR PTT (Actin FS) VBG pH POC VBG pCO2 POC VBG pO2 Mixed VBG HCO3 Sodium Potassium Chloride Carbon Dioxide Anion Gap BUN Creatinine Creat Clearance w eGFR POC Glucometer [phone] Random Glucose Hemoglobin A1c % Lactic Acid Calcium Magnesium Total Bilirubin AST ALT Alkaline Phosphatase Creatine Kinase Troponin I 0.02 D Total Protein Albumin Triglycerides Cholesterol Total LDL Cholesterol HDL Cholesterol Urine Color Ltyellow Urine Appearance Clear Urine pH 5.0 Ur Specific [place] 1.023 Urine Protein 1+ H Urine Glucose (UA) 1+ H Urine Ketones Trace H Urine Blood 1+ H Urine Nitrite Negative Urine Bilirubin Negative Urine Urobilinogen Negative Ur Leukocyte Esterase Negative Urine WBC (Auto) 1 Urine RBC (Auto) <1 Urine Bacteria Rare Urine Mucus Rare 09/07/17 09/07/17 09/07/17 06:37 07:48 07:48 WBC 7.3 RBC 3.58 L Hgb 11.0 L Hct 32.7 L D MCV 91.3 MCH 30.7 MCHC 33.6 RDW 15.8 Plt Count 120 L D MPV 9.4 Absolute Neuts (auto) 6.1 Neutrophils % 83.5 H Lymphocytes % 8.0 D Monocytes % 7.9 Eosinophils % 0.1 Basophils % 0.5 Nucleated RBC % 0 PT with INR INR PTT (Actin FS) VBG pH POC VBG pCO2 POC VBG pO2 Mixed VBG HCO3 Sodium 138 Potassium 3.7 Chloride 108 H Carbon Dioxide 21 Anion Gap 9 BUN 17 Creatinine 1.0 Creat Clearance w eGFR > 60 POC Glucometer [phone] Random Glucose 130 H Hemoglobin A1c % Lactic Acid Calcium 8.3 L Magnesium 1.6 L Total Bilirubin 0.7 AST 74 H D ALT 92 H D Alkaline Phosphatase 78 D Creatine Kinase Troponin I Total Protein 6.4 Albumin 2.6 L Triglycerides 63 Cholesterol 77 Total LDL Cholesterol 45 HDL Cholesterol 28 L Urine Color Urine Appearance Urine pH Ur Specific [place] Urine Protein Urine Glucose (UA) Urine Ketones Urine Blood Urine Nitrite Urine Bilirubin Urine Urobilinogen Ur Leukocyte Esterase Urine WBC (Auto) Urine RBC (Auto) Urine Bacteria Urine Mucus 09/07/17 09/07/17 07:48 11:11 WBC RBC Hgb Hct MCV MCH MCHC RDW Plt Count MPV Absolute Neuts (auto) Neutrophils % Lymphocytes % Monocytes % Eosinophils % Basophils % Nucleated RBC % PT with INR INR PTT (Actin FS) VBG pH POC VBG pCO2 POC VBG pO2 Mixed VBG HCO3 Sodium Potassium Chloride Carbon Dioxide Anion Gap BUN Creatinine Creat Clearance w eGFR POC Glucometer [phone] Random Glucose Hemoglobin A1c % 6.1 H Lactic Acid Calcium Magnesium Total Bilirubin AST ALT Alkaline Phosphatase Creatine Kinase Troponin I Total Protein Albumin Triglycerides Cholesterol Total LDL Cholesterol HDL Cholesterol Urine Color Urine Appearance Urine pH Ur Specific [place] Urine Protein Urine Glucose (UA) Urine Ketones Urine Blood Urine Nitrite Urine Bilirubin Urine Urobilinogen Ur Leukocyte Esterase Urine WBC (Auto) Urine RBC (Auto) Urine Bacteria Urine Mucus Active Medications Generic Name Dose Route Start Last Admin Trade Name Freq PRN Reason Stop Dose Admin Acetaminophen 650 mg 09/07/17 07:40 09/07/17 15:47 Tylenol - PO 650 mg Q6H PRN Administration FEVER Albuterol/Ipratropium 1 amp 09/06/17 22:45 09/07/17 12:25 Duoneb - NEB 1 amp RQID VANITA Administration Heparin Sodium (Porcine) 5,000 unit 09/06/17 22:45 09/07/17 14:34 Heparin - SQ 5,000 unit TID VANITA Administration Piperacillin Sod/Tazobactam 50 mls @ 100 mls/hr 09/06/17 16:33 09/07/17 10:34 Sod 3.375 gm/ Dextrose IVPB 100 mls/hr Q8H-IV VANITA Administration Protocol Potassium Chloride/Sodium Chloride 20 meq in 1,000 mls @ 75 mls/hr 09/07/17 12 :30 09/07/17 14:20 1/2ns+20meq Kcl IV 75 mls/hr ASDIR VANITA Administration Levofloxacin 750 mg in 150 mls @ 150 mls/hr 09/07/17 16:15 Levaquin 750 Mg Premixed Ivpb - IVPB DAILY VANITA Protocol Insulin Aspart 1 vial 09/06/17 22:00 09/07/17 11:14 Novolog Vial Sliding Scale - SQ Not Given ACHS VANITA Protocol ASSESSMENT/PLAN: Patient is a 66 year old male with a significant past medical history of hypertension, diabetes, gout, dormant lupus, diabetes, recent shingles (05/2017) , interstitial lung disease and an enlarged prostate. He comes to the ER on with complaints of 3 days of fever and chills and a temp of 103F at home with left lower back pain and tenderness. 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 imaging: Chest/abd CT: emphysematous changes and interstitial lung disease. Honeycombing. mosaic attenuation, bronchiectasis noted. infiltrate vs mass is present on RADHA. Spleen: enlarged spleen. ID/Sepsis: Likely secondary to pneumonia, in the setting of advanced interstitial disease/honeycomb lung disease. CT confirms worsening lung pathology. Will give dose of Levaquin 750mg per ID recommendations in addition to Zosyn. Started on steriods per pulmonary. Patient to be transferred to ICU for bipap therapy. Has history of interstitial lung disease seen on CT done here 05/2017. ICU monitoring. Blood and urine cultures pending. Shingles: Outbreak of left flank dermatone shingles 3 months ago, no open lesions and patient treated with acyclovir. Per ID, no further need for acyclovir. CT of Lumbar spine showed no collection. Will order HIV test Card: Hypertension: hold cardiac medications in the setting of sepsis. Endocrine: Diabetes: hold metformin. Start SS. : Enlarged prostate: monitor intake and ouput Renal: BURKE: Hydrate. Renal consulted by ED provider. fen normal saline @ 75 monitor electrolytes regular diet as tolerated prophy Heparin Protonix Visit type - Emergency Visit Emergency Visit: Yes ED Registration Date: 09/07/17 Care time: The patient presented to the Emergency Department on the above date and was hospitalized for further evaluation of their emergent condition. - New Patient This patient is new to me today: No - Critical Care Critical Care patient: No Total Critical Care Time (in minutes): 60 Critical Care Statement: The care of this patient involved high complexity decision making to prevent further life threatening deterioration of the patient 's condition and/or to evaluate & treat vital organ system(s) failure or risk of failure.
[2017-09-07] MEDS ORDERED: SODIUM CHLORIDE 500 ML IV STA (16:09)
--- NOTE | 2017-09-07 16:15 | CONS ---
DATE OF CONSULTATION: 09/07/2017 PULMONARY CONSULTATION REFERRING PHYSICIAN: Sylvia Jacobs MD HISTORY OF PRESENT ILLNESS: The patient is a 66-year-old male, nonsmoker, with history of SLE (apparently dormant), recent episode of shingles, diabetes, hypertension, obesity, admitted to [facility] with the complaint of a 3-day history of fever and lower back pain. The patient complained of localized pain in the spine,and increasing shortness of breath and a nonproductive cough. He had chills associated with the fever. He denies any nausea, vomiting or diaphoresis. Pt recently he had shingles left flank iand was treated with acyclovir. The patient was sent to the emergency room because of the above. In the ER, he was noted to be dyspneic and mildly tachypneic. He underwent a CT scan of the chest and abdomen. Chest CT revealed extensive interstitial lung disease with some mediastinal hilar adenopathy and a left upper lobe consolidation. He has also had an abdominal CT, which revealed splenomegaly. No acute process appreciated. The patient was evaluated by for ID consultation, who placed the patient on vancomycin and Zosyn. The patient is a nonsmoker. He has a history of exposure to chemicals years ago. He denies any recent exposures. He was born in [place] and moved to the [place] 40 years ago, and recently traveled there approximately 3 months ago. He states he has no pets at home and no family members have been ill. According to the patient, he denies any significant shortness of breath. But on speaking to the daughter, she says that her father is always short of breath and gets markedly dyspneic with minimal exertion as well as with rest. He was informed last year that he may have some abnormalities of the lung, but he never pursued further workup. PAST MEDICAL HISTORY: Again includes SLE (apparently dormant), a recent episode of shingles of the left flank, hypertension, diabetes, gout, interstitial lung disease and enlarged prostate. CURRENT MEDICATIONS: Include Zosyn, Tylenol, heparin, DuoNeb, NovoLog. REVIEW OF SYSTEMS: Positive shortness of breath. Positive cough. No chest pain. No palpitations. No abdominal pain. Positive postherpetic neuralgia. No lower extremity edema. PHYSICAL EXAMINATION: General: The patient is an obese, male, well-developed, alert, dyspneic, mildly tachypneic. Vitals: His O2 saturation is 97% on O2. Blood pressure 125/66. Respiratory rate is 18 to 20. He is currently afebrile. HEENT: Normocephalic, atraumatic. Neck: Supple. Heart: Tachycardic, S1, S2. Chest: Bilateral crackles throughout. Abdomen: Soft. Bowel sounds are positive. Extremities: No cyanosis or edema. LABORATORY DATA: WBC is 7.3, hemoglobin 11, hematocrit 32.7; platelet count 120 ,000. INR 1.27. Venous blood gas 7.40, pCO2 of 35, pO2 of 37, bicarbonate 21. BUN 17, creatinine 1.0, magnesium 1.6 DIAGNOSTIC STUDIES: Chest CT revealed extensive interstitial lung disease with left upper lobe consolidation, mediastinal and hilar adenopathy. IMPRESSION: 1. Acute hypoxic respiratory failure with extensive left upper lobe pneumonia. 2. Advanced interstitial lung disease, etiology to be determined, possibly secondary to history of lupus. Rule out possible IPF. 3. Systemic lupus erythematosus. 4. Hypertension. 5. Diabetes. PLAN: IV antibiotics, ask for Infectious Disease, cultures, inhaled bronchodilators,Legionella urinary antigen, supplemental O2 to maintain O2 saturation 90% or greater. short course of steroids. Follow up chest x-rays to document resolution of infiltrate. Also, a full pulmonary function test as an outpatient. IV fluids. My SMART M.D. [id number] MTDD
--- NOTE | 2017-09-07 16:45 | CONSULT ---
Consultation: REQUESTING PROVIDER: CONSULT REQUEST: We have been asked to medically evaluate this patient for (ICU admission). HISTORY OF PRESENT ILLNESS: 66 yo male with PMH SLE, HTN, DM, gout, recent shingles (mostly resolved), and BPH presented to the ED with 3 days of fever (Tmax:103), cough, and SOB. Pt states that his breathing has been worsening for the past 6 months. He states he went to [facility] last year for a similar problem but left prior to testing and treatment and did not follow up. He also states that over the last year he has lost about 20 pounds due to a decreased appetite. His daughter was at the bedside and supplementing the history. He was originally to be admitted to med/surg, but was found with worsening SOB and tachycardia prior to transfer upstairs. We are asked to see him due to his current respiratory status and risk of impending respiratory failure. Pt denies: nausea, vomiting, abdominal pain, productive cough, chest pain, palpitations REVIEW OF SYSTEMS: CONSTITUTIONAL: fever, chills, loss of appetite, weight change Absent: diaphoresis, generalized weakness, malaise, HEENT: Absent: rhinorrhea, nasal congestion, throat pain, throat swelling, difficulty swallowing, mouth swelling, ear pain, eye pain, visual changes CARDIOVASCULAR: Absent: chest pain, syncope, palpitations, irregular heart rate, lightheadedness , peripheral edema RESPIRATORY: shortness of breath, dyspnea with exertion Absent: cough, orthopnea, wheezing, stridor, hemoptysis GASTROINTESTINAL: Absent: abdominal pain, abdominal distension, nausea, vomiting, diarrhea, constipation, melena, hematochezia GENITOURINARY: Absent: dysuria, frequency, urgency, hesitancy, hematuria, flank pain, genital pain MUSCULOSKELETAL: Absent: myalgia, arthralgia, joint swelling, back pain, neck pain SKIN: Absent: rash, itching, pallor HEMATOLOGIC/IMMUNOLOGIC: Absent: easy bleeding, easy bruising, lymphadenopathy, frequent infections ENDOCRINE: Absent: unexplained weight gain, unexplained weight loss, heat intolerance, cold intolerance NEUROLOGIC: Absent: headache, focal weakness or paresthesias, dizziness, unsteady gait, seizure, mental status changes, bladder or bowel incontinence PSYCHIATRIC: Absent: anxiety, depression, suicidal or homicidal ideation, hallucinations. PHYSICAL EXAMINATION Vital Signs - 24 hr 09/06/17 09/06/17 09/07/17 17:22 17:45 00:08 Temperature 100.1 F H 100.7 F H Pulse Rate [ 125 H 112 H 141 H Apical] Respiratory 20 Rate Blood Pressure 131/71 98/70 [Left Arm] O2 Sat by Pulse 98 98 86 L Oximetry (%) 09/07/17 09/07/17 09/07/17 01:49 02:25 06:41 Temperature 102.1 F H 99.7 F H 98.7 F Pulse Rate [ 68 Apical] Respiratory 16 Rate Blood Pressure 116/58 [Left Arm] O2 Sat by Pulse 97 Oximetry (%) 09/07/17 09/07/17 09/07/17 08:01 14:41 15:38 Temperature 98.5 F 98.4 F 101.7 F H Pulse Rate [ 85 108 H Apical] Respiratory Rate Blood Pressure 102/61 125/66 [Left Arm] O2 Sat by Pulse 98 Oximetry (%) 09/07/17 09/07/17 09/07/17 16:05 16:15 16:31 Temperature Pulse Rate [ 152 H 140 H 128 H Apical] Respiratory 46 H 25 H 32 H Rate Blood Pressure 159/79 142/74 117/67 [Left Arm] O2 Sat by Pulse 3 L Oximetry (%) GENERAL: Awake, alert, and fully oriented, in some mild respiratory distress. HEAD: Normal with no signs of trauma. EYES: Pupils equal, round and reactive to light, extraocular movements intact, sclera anicteric, conjunctiva clear. No lid lag. EARS, NOSE, THROAT: Ears normal, nares patent Moist mucous membranes. NECK: supple without lymphadenopathy, JVD, or masses. LUNGS: Saturating well on Bipap, Diffuse crackles b/l, No accessory muscle use. HEART: Tachycardic, regular rhythm, normal S1 and S2 without murmur, rub or gallop. ABDOMEN: Obese, soft, nontender, not distended, normoactive bowel sounds, no guarding, no rebound, no masses. MUSCULOSKELETAL: Gross ROM normal. No bony deformities or tenderness. No CVA tenderness. UPPER EXTREMITIES: 2+ pulses, warm, well-perfused. No cyanosis. No clubbing. No peripheral edema. LOWER EXTREMITIES: 2+ pulses, warm, well-perfused. No calf tenderness. No peripheral edema. NEUROLOGICAL: Cranial nerves II-XII grossly intact. Normal speech. Gait not observed PSYCHIATRIC: Cooperative. Good eye contact. Appropriate mood and affect. SKIN: Warm, dry, normal turgor, no rashes or lesions noted. Laboratory Results - last 24 hr 09/06/17 09/06/17 09/06/17 00:45 16:15 16:15 WBC 9.3 RBC 4.36 Hgb 13.5 Hct 39.8 MCV 91.3 MCH 30.9 MCHC 33.9 RDW 16.3 H Plt Count 159 MPV 9.4 Absolute Neuts (auto) 8.3 Neutrophils % 89.5 H Lymphocytes % 4.6 L D Monocytes % 5.2 Eosinophils % 0.4 D Basophils % 0.3 Nucleated RBC % 0 PT with INR 14.30 H INR 1.27 H PTT (Actin FS) 39.2 H VBG pH POC VBG pCO2 POC VBG pO2 Mixed VBG HCO3 Sodium Potassium Chloride Carbon Dioxide Anion Gap BUN Creatinine Creat Clearance w eGFR POC Glucometer Random Glucose Hemoglobin A1c % Lactic Acid Calcium Magnesium Total Bilirubin AST ALT Alkaline Phosphatase Creatine Kinase 55 Troponin I 0.07 H D Total Protein Albumin Triglycerides Cholesterol Total LDL Cholesterol HDL Cholesterol Urine Color Urine Appearance Urine pH Ur Specific [place] Urine Protein Urine Glucose (UA) Urine Ketones Urine Blood Urine Nitrite Urine Bilirubin Urine Urobilinogen Ur Leukocyte Esterase Urine WBC (Auto) Urine RBC (Auto) Urine Bacteria Urine Mucus 09/06/17 09/06/17 09/06/17 16:15 16:15 16:15 WBC RBC Hgb Hct MCV MCH MCHC RDW Plt Count MPV Absolute Neuts (auto) Neutrophils % Lymphocytes % Monocytes % Eosinophils % Basophils % Nucleated RBC % PT with INR INR PTT (Actin FS) VBG pH 7.40 POC VBG pCO2 35.7 L POC VBG pO2 37.3 Mixed VBG HCO3 21.6 Sodium 135 L Potassium 4.1 Chloride 103 Carbon Dioxide 21 D Anion Gap 11 BUN 29 H Creatinine 1.5 H Creat Clearance w eGFR 46.54 POC Glucometer Random Glucose 145 H D Hemoglobin A1c % Lactic Acid 1.7 Calcium 9.3 Magnesium Total Bilirubin 0.7 AST 44 H D ALT 51 D Alkaline Phosphatase 88 Creatine Kinase Troponin I Total Protein 8.2 Albumin 3.6 Triglycerides Cholesterol Total LDL Cholesterol HDL Cholesterol Urine Color Urine Appearance Urine pH Ur Specific [place] Urine Protein Urine Glucose (UA) Urine Ketones Urine Blood Urine Nitrite Urine Bilirubin Urine Urobilinogen Ur Leukocyte Esterase Urine WBC (Auto) Urine RBC (Auto) Urine Bacteria Urine Mucus 09/06/17 09/06/17 09/07/17 16:15 23:09 02:10 WBC RBC Hgb Hct MCV MCH MCHC RDW Plt Count MPV Absolute Neuts (auto) Neutrophils % Lymphocytes % Monocytes % Eosinophils % Basophils % Nucleated RBC % PT with INR INR PTT (Actin FS) VBG pH POC VBG pCO2 POC VBG pO2 Mixed VBG HCO3 Sodium Potassium Chloride Carbon Dioxide Anion Gap BUN Creatinine Creat Clearance w eGFR POC Glucometer [phone] Random Glucose Hemoglobin A1c % Lactic Acid Calcium Magnesium Total Bilirubin AST ALT Alkaline Phosphatase Creatine Kinase Troponin I 0.02 D Total Protein Albumin Triglycerides Cholesterol Total LDL Cholesterol HDL Cholesterol Urine Color Ltyellow Urine Appearance Clear Urine pH 5.0 Ur Specific [place] 1.023 Urine Protein 1+ H Urine Glucose (UA) 1+ H Urine Ketones Trace H Urine Blood 1+ H Urine Nitrite Negative Urine Bilirubin Negative Urine Urobilinogen Negative Ur Leukocyte Esterase Negative Urine WBC (Auto) 1 Urine RBC (Auto) <1 Urine Bacteria Rare Urine Mucus Rare 09/07/17 09/07/17 09/07/17 06:37 07:48 07:48 WBC 7.3 RBC 3.58 L Hgb 11.0 L Hct 32.7 L D MCV 91.3 MCH 30.7 MCHC 33.6 RDW 15.8 Plt Count 120 L D MPV 9.4 Absolute Neuts (auto) 6.1 Neutrophils % 83.5 H Lymphocytes % 8.0 D Monocytes % 7.9 Eosinophils % 0.1 Basophils % 0.5 Nucleated RBC % 0 PT with INR INR PTT (Actin FS) VBG pH POC VBG pCO2 POC VBG pO2 Mixed VBG HCO3 Sodium 138 Potassium 3.7 Chloride 108 H Carbon Dioxide 21 Anion Gap 9 BUN 17 Creatinine 1.0 Creat Clearance w eGFR > 60 POC Glucometer [phone] Random Glucose 130 H Hemoglobin A1c % Lactic Acid Calcium 8.3 L Magnesium 1.6 L Total Bilirubin 0.7 AST 74 H D ALT 92 H D Alkaline Phosphatase 78 D Creatine Kinase Troponin I Total Protein 6.4 Albumin 2.6 L Triglycerides 63 Cholesterol 77 Total LDL Cholesterol 45 HDL Cholesterol 28 L Urine Color Urine Appearance Urine pH Ur Specific [place] Urine Protein Urine Glucose (UA) Urine Ketones Urine Blood Urine Nitrite Urine Bilirubin Urine Urobilinogen Ur Leukocyte Esterase Urine WBC (Auto) Urine RBC (Auto) Urine Bacteria Urine Mucus 09/07/17 09/07/17 07:48 11:11 WBC RBC Hgb Hct MCV MCH MCHC RDW Plt Count MPV Absolute Neuts (auto) Neutrophils % Lymphocytes % Monocytes % Eosinophils % Basophils % Nucleated RBC % PT with INR INR PTT (Actin FS) VBG pH POC VBG pCO2 POC VBG pO2 Mixed VBG HCO3 Sodium Potassium Chloride Carbon Dioxide Anion Gap BUN Creatinine Creat Clearance w eGFR POC Glucometer [phone] Random Glucose Hemoglobin A1c % 6.1 H Lactic Acid Calcium Magnesium Total Bilirubin AST ALT Alkaline Phosphatase Creatine Kinase Troponin I Total Protein Albumin Triglycerides Cholesterol Total LDL Cholesterol HDL Cholesterol Urine Color Urine Appearance Urine pH Ur Specific [place] Urine Protein Urine Glucose (UA) Urine Ketones Urine Blood Urine Nitrite Urine Bilirubin Urine Urobilinogen Ur Leukocyte Esterase Urine WBC (Auto) Urine RBC (Auto) Urine Bacteria Urine Mucus Active Medications Generic Name Dose Route Start Last Admin Trade Name Freq PRN Reason Stop Dose Admin Acetaminophen 650 mg 09/07/17 07:40 09/07/17 15:47 Tylenol - PO 650 mg Q6H PRN Administration FEVER Albuterol/Ipratropium 1 amp 09/06/17 22:45 09/07/17 16:33 Duoneb - NEB Not Given RQID VANITA Heparin Sodium (Porcine) 5,000 unit 09/06/17 22:45 09/07/17 14:34 Heparin - SQ 5,000 unit TID VANITA Administration Piperacillin Sod/Tazobactam 50 mls @ 100 mls/hr 09/06/17 16:33 09/07/17 10:34 Sod 3.375 gm/ Dextrose IVPB 100 mls/hr Q8H-IV VANITA Administration Protocol Potassium Chloride/Sodium Chloride 20 meq in 1,000 mls @ 75 mls/hr 09/07/17 12 :30 09/07/17 14:20 1/2ns+20meq Kcl IV 75 mls/hr ASDIR AVNITA Administration Levofloxacin 750 mg in 150 mls @ 150 mls/hr 09/07/17 16:15 09/07/17 16:26 Levaquin 750 Mg Premixed Ivpb - IVPB 150 mls/hr DAILY VANITA Administration Protocol Insulin Aspart 1 vial 09/06/17 22:00 09/07/17 11:14 Novolog Vial Sliding Scale - SQ Not Given ACHS VANITA Protocol Methylprednisolone Sodium Succinate 40 mg 09/07/17 22:00 Solu-Medrol - IVPUSH BID [facility] ASSESSMENT/PLAN: 66 yo male admitted to the ICU with pneumonia, extensive interstitial lung disease, and impending respiratory failure. Neuro -No known neuro issues at this time Cardio -HTN Currently 117/67, will restart home meds as necessary -Tachycardia Most likely compensation due to respiratory status Respiratory -Interstitial lung disease Hx unclear Duonebs QID Albuterol Nebs PRN Q6 -Acute CAP with impending respiratory failure Bipap ventilation for now ABG pending Consider High Flow O2 depending on ABG results Solu-Medrol 40 mg IV BID GI -NPO -No known GI issues at this time Endocrine -DM on metformin Insulin sliding scale until able to convert to home meds Renal -No known renal insufficiency ID -ID consult appreciated -Acute CAP received Vanc/Zosyn in the ED Levaquin 750 mg IVPB Daily -recent hx of shingles (May), no longer on acyclovir Rheumatology -Hx of SLE, currently claims dormant, not on medications -Rheumatology Consult placed DVT Prophylaxis -Heparin 5000 Units SQ TID FEN -Fluids: 1/2 NS + 20 mEq KCl @ 75 cc/hr -Electrolytes: Mg+ and K+ repleted in ED, BMP in AM -Nutrition: NPO Disposition Will monitor in the ICU Problem List - Problems (1) Acute respiratory failure with hypoxia Code(s): J96.01 - ACUTE RESPIRATORY FAILURE WITH HYPOXIA (2) Pneumonia Code(s): J18.9 - PNEUMONIA, UNSPECIFIED ORGANISM (3) SLE (systemic lupus erythematosus) Code(s): M32.9 - SYSTEMIC LUPUS ERYTHEMATOSUS, UNSPECIFIED (4) Sepsis Code(s): A41.9 - SEPSIS, UNSPECIFIED ORGANISM (5) Shingles Code(s): B02.9 - ZOSTER WITHOUT COMPLICATIONS Qualifiers: Herpes zoster complications: without complications Qualified Code(s): B02.9 - Zoster without complications Visit type - Emergency Visit Emergency Visit: Yes ED Registration Date: 09/07/17 Care time: The patient presented to the Emergency Department on the above date and was hospitalized for further evaluation of their emergent condition. - New Patient This patient is new to me today: Yes Date on this admission: 09/07/17 - Critical Care Critical Care patient: Yes Total Critical Care Time (in minutes): 45 Critical Care Statement: The care of this patient involved high complexity decision making to prevent further life threatening deterioration of the patient 's condition and/or to evaluate & treat vital organ system(s) failure or risk of failure.
[2017-09-07 17:01] LABS: ARTERIAL BLOOD GAS BASE EXCESS -4.6 meq/l (-2-2); ARTERIAL BLOOD GAS PCO2 29.4 mmHg (35-45); ARTERIAL BLOOD GAS pH 7.42 (7.35-7.45)
[2017-09-07 17:02] LABS: ALLENS TEST POSITIVE
[2017-09-07] MEDS ORDERED: ALBUTEROL SO4 0.042% IH SOL 1.25 MG/3 ML VIAL.NEB NEB PRN (17:14)
[2017-09-07] MEDS: ALBUTEROL SO4 0.042% IH SOL 1.25 MG/3 ML VIAL.NEB NEB PRN (22:56)
[2017-09-07] MEDS: methylPREDNISolone NA SUCC 40 MG/1 ML VIAL IVPUSH SCH (23:13)
[2017-09-07] MEDS: CHLORHEXIDINE GLUCONATE 4% CLEANSER FOR DECOLONIZATION TP SCH (23:14)
[2017-09-07] MEDS: MUPIROCIN 2% TOPICAL OINTMENT FOR DECOLONIZATION NS SCH (23:14)
[2017-09-08] MEDS ORDERED: PIPERACILLIN/TAZOB 3.375 GM 3.375 GM in DEXTROSE 5%-WATER - 50 ML IVPB SCH (02:00)
[2017-09-08] MEDS ORDERED: DEXTROSE 5%-WATER - 50 ML IVPB ONE (02:31)
[2017-09-08] MEDS ORDERED: PIPERACILLIN/TAZOBACTAM 3.375 GM VIAL IVPB ONE (02:31)
[2017-09-08] MEDS: methylPREDNISolone NA SUCC 40 MG/1 ML VIAL IVPUSH SCH ×4 (02:54→21:22)
[2017-09-08] MEDS: ALBUTEROL SO4 0.042% IH SOL 1.25 MG/3 ML VIAL.NEB NEB PRN (03:13)
[2017-09-08] MEDS: HEPARIN NA (PORCINE) 5,000 UNITS/ML 1ML VIAL SQ SCH ×3 (06:11→21:22)
[2017-09-08] MEDS: INSULIN SLIDING SCALE (NOVOLOG) 1 VIAL SQ SCH ×4 (06:11→21:34)
[2017-09-08 06:20] LABS: BASO % 0.1 % (0-2.0); HEMATOCRIT 34.5 % (35.4-49); LYMPH % 4.5 % (8-40); MCH 31.6 pg (25.7-33.7); MCHC 34.7 g/dl (32.0-35.9); MEAN CELL VOLUME 91.2 fl (80-96); MONO % 1.5 % (3.8-10.2); NEUT % 93.9 % (42.8-82.8); PLATELET COUNT 130 K/MM3 (134-434); RBC 3.78 M/mm3 (4.00-5.60); WHITE BLOOD COUNT 6.8 K/mm3 (4.0-10.0)
[2017-09-08 06:52] LABS: ALBUMIN 2.6 g/dl (3.4-5.0); ANION GAP 11 (8-16); BILIRUBIN,TOTAL 0.8 mg/dL (0.2-1.0); BLOOD UREA NITROGEN 17 mg/dL (7-18); CHLORIDE 108 mmol/L (98-107); CO2 21 mmol/L (21-32); CREATININE 0.9 mg/dL (0.7-1.3); GLUCOSE,RANDOM 170 mg/dL (74-106); MAGNESIUM 1.8 mg/dL (1.8-2.4); PHOSPHOROUS 2.7 mg/dL (2.5-4.9); POTASSIUM 3.9 mmol/L (3.5-5.1); SGOT/AST 45 U/L (15-37); SGPT/ALT 85 U/L (12-78); SODIUM 140 mmol/L (136-145); TOT PROT 6.6 g/dl (6.4-8.2)
[2017-09-08 07:11] LABS: ALK PHOS 90 U/L (45-117); CALCIUM 8.6 mg/dL (8.5-10.1); GAMMA GLUTAMYL TRANSPEPTIDASE 68 U/L (5-85)
[2017-09-08] MEDS: ALBUTEROL SO4 2.5/IPRATROPIUM 0.5 INH SOL 3 ML VIAL.NEB. NEB SCH ×4 (08:09→20:29)
[2017-09-08] MEDS: MUPIROCIN 2% TOPICAL OINTMENT FOR DECOLONIZATION NS SCH ×2 (09:48→21:22)
[2017-09-08 10:09] LABS: ARTERIAL BLOOD GAS PCO2 29.4 mmHg (35-45)
[2017-09-08 10:10] LABS: ARTERIAL BLD GAS O2 SATURATION 95.6 % (90-98.9); ARTERIAL BLOOD GAS PO2 79.6 mmHg (80-100)
[2017-09-08 10:11] LABS: ALLENS TEST POSITIVE
[2017-09-08 10:43] LABS: ANISOCYTOSIS 1+; MACROCYTOSIS 1+; PLATELET ESTIMATE DECREASED
--- NOTE | 2017-09-08 12:31 | PN ---
Teaching Attending Note Name of Resident: Allan Head ATTENDING PHYSICIAN STATEMENT I saw and evaluated the patient. I reviewed the resident's note and discussed the case with the resident. I agree with the resident's findings and plan as documented. SUBJECTIVE: Patient seen and examined in the ICU. Awake and alert on HF NC O2 (40liters/40% FiO2) Denies CP. SOB is better on HF NC. Some dry cough. No hemoptysis. Intake & Output 09/05/17 09/06/17 09/07/17 09/08/17 23:59 23:59 23:59 23:59 Intake Total 100 Output Total 200 1000 Balance -200 -900 Weight 187 lb 193 lb 12.581 oz 192 lb 14.472 oz Last Vital Signs Temp Pulse Resp BP Pulse Ox 97.2 F L 96 H 24 132/73 97 09/08/17 02:00 09/08/17 10:05 09/08/17 10:05 09/08/17 10:05 09/08/17 12:06 Active Medications Acetaminophen (Tylenol -) 650 mg PO Q6H PRN PRN Reason: FEVER Albuterol Sulfate (Ventolin 0.042trength) -) 1 amp NEB Q6H PRN PRN Reason: SHORT OF BREATH/WHEEZING Last Admin: 09/08/17 03:13 Dose: 1 amp Albuterol/Ipratropium (Duoneb -) 1 amp NEB RQID VANITA Last Admin: 09/08/17 12:07 Dose: 1 amp Ascorbic Acid (Vitamin C -) 500 mg PO DAILY [facility] Chlorhexidine Gluconate (Hibiclens For Decolonization -) 1 applic TP HS VANITA Last Admin: 09/07/17 23:14 Dose: 1 applic Heparin Sodium (Porcine) (Heparin -) 5,000 unit SQ TID VANITA Last Admin: 09/08/17 06:11 Dose: 5,000 unit Levofloxacin (Levaquin 750 Mg Premixed Ivpb -) 750 mg in 150 mls @ 150 mls/hr IVPB DAILY VANITA; Protocol Last Admin: 09/08/17 09:48 Dose: 150 mls/hr Insulin Aspart (Novolog Vial Sliding Scale -) 1 vial SQ ACHS VANITA; Protocol Last Admin: 09/08/17 06:11 Dose: 2 units Methylprednisolone Sodium Succinate (Solu-Medrol -) 40 mg IVPUSH Q6H-IV VANITA Last Admin: 09/08/17 09:46 Dose: 40 mg Mupirocin (Bactroban Ointment (For Decolonization) -) 1 applic NS BID [facility] Stop: 09/12/17 21:59 Last Admin: 09/08/17 09:48 Dose: 1 applic GENERAL: Awake, alert, fully oriented, Mildly tachypneic at rest HEAD: Normal with no signs of trauma. EYES: Pupils equal, round and reactive to light, extraocular movements intact, sclera anicteric, conjunctiva clear. No lid lag. EARS, NOSE, THROAT: Ears normal, nares patent Moist mucous membranes. NECK: supple without lymphadenopathy, JVD, or masses. LUNGS: Rales, Rhonchi, inspiratory squeaks, crackles, no wheezing HEART: regular rhythm, normal S1 and S2, No rub or gallop. ABDOMEN: Obese, soft, nontender, not distended, normoactive bowel sounds, no guarding, no rebound, no masses. MUSCULOSKELETAL: No bony deformities or tenderness. No CVA tenderness. UPPER EXTREMITIES: 2+ pulses, warm, well-perfused. No cyanosis. No clubbing. No peripheral edema. LOWER EXTREMITIES: 2+ pulses, warm, well-perfused. No calf tenderness. No peripheral edema. NEUROLOGICAL: Non-focal PSYCHIATRIC: Cooperative. Good eye contact. Appropriate mood and affect. SKIN: Warm, dry, normal turgor, no rashes or lesions noted. Laboratory Results - last 24 hr 09/07/17 09/07/17 09/07/17 16:39 16:47 23:13 WBC RBC Hgb Hct MCV MCH MCHC RDW Plt Count MPV Absolute Neuts (auto) Neutrophils % Neutrophils % (Manual) Band Neutrophils % Lymphocytes % Lymphocytes % (Manual) Monocytes % Monocytes % (Manual) Eosinophils % Eosinophils % (Manual) Basophils % Basophils % (Manual) Myelocytes % (Man) Promyelocytes % (Man) Blast Cells % (Manual) Nucleated RBC % Metamyelocytes Hypochromia Platelet Estimate Polychromasia Poikilocytosis Anisocytosis Microcytosis Macrocytosis Anticoagulation Therapy No Result Required. Puncture Site Left radial ABG pH 7.42 ABG pCO2 at Pt Temp 29.4 L ABG pO2 at Pt Temp 355.0 H* ABG HCO3 18.5 L ABG O2 Sat (Measured) 100.0 H* ABG O2 Content 16.2 ABG Base Excess -4.6 L Bassem Test Positive O2 Delivery Device Bipap Oxygen Flow Rate 100 Vent Mode S/t Vent Rate 12 Mechanical Rate No Result Required. Pressure Support Vent 15/8 Sodium Potassium Chloride Carbon Dioxide Anion Gap BUN Creatinine Creat Clearance w eGFR POC Glucometer [phone] Random Glucose Calcium Phosphorus Magnesium Total Bilirubin GGT AST ALT Alkaline Phosphatase Troponin I Total Protein Albumin HIV 1&2 Antibody Screen HIV P24 Antigen 09/08/17 09/08/17 09/08/17 05:30 05:30 05:30 WBC 6.8 RBC 3.78 L Hgb 12.0 Hct 34.5 L MCV 91.2 MCH 31.6 MCHC 34.7 RDW 16.0 H Plt Count 130 L MPV 9.0 Absolute Neuts (auto) 6.4 Neutrophils % 93.9 H Neutrophils % (Manual) 92.0 H Band Neutrophils % 4.0 Lymphocytes % 4.5 L D Lymphocytes % (Manual) 2.0 L Monocytes % 1.5 L D Monocytes % (Manual) 2 L Eosinophils % 0.0 D Eosinophils % (Manual) 0.0 Basophils % 0.1 Basophils % (Manual) 0.0 Myelocytes % (Man) 0 Promyelocytes % (Man) 0 Blast Cells % (Manual) 0 Nucleated RBC % 0 Metamyelocytes 0 Hypochromia 0 Platelet Estimate Decreased Polychromasia 0 Poikilocytosis 0 Anisocytosis 1+ Microcytosis 0 Macrocytosis 1+ Anticoagulation Therapy Puncture Site ABG pH ABG pCO2 at Pt Temp ABG pO2 at Pt Temp ABG HCO3 ABG O2 Sat (Measured) ABG O2 Content ABG Base Excess Bassem Test O2 Delivery Device Oxygen Flow Rate Vent Mode Vent Rate Mechanical Rate Pressure Support Vent Sodium 140 Potassium 3.9 Chloride 108 H Carbon Dioxide 21 Anion Gap 11 BUN 17 Creatinine 0.9 Creat Clearance w eGFR > 60 POC Glucometer Random Glucose 170 H D Calcium 8.6 Phosphorus 2.7 Magnesium 1.8 Total Bilirubin 0.8 GGT 68 AST 45 H D ALT 85 H Alkaline Phosphatase 90 D Troponin I 0.07 H D Total Protein 6.6 Albumin 2.6 L HIV 1&2 Antibody Screen Negative HIV P24 Antigen Negative 09/08/17 09:22 WBC RBC Hgb Hct MCV MCH MCHC RDW Plt Count MPV Absolute Neuts (auto) Neutrophils % Neutrophils % (Manual) Band Neutrophils % Lymphocytes % Lymphocytes % (Manual) Monocytes % Monocytes % (Manual) Eosinophils % Eosinophils % (Manual) Basophils % Basophils % (Manual) Myelocytes % (Man) Promyelocytes % (Man) Blast Cells % (Manual) Nucleated RBC % Metamyelocytes Hypochromia Platelet Estimate Polychromasia Poikilocytosis Anisocytosis Microcytosis Macrocytosis Anticoagulation Therapy No Result Required. Puncture Site Right radial ABG pH 7.40 ABG pCO2 at Pt Temp 29.4 L ABG pO2 at Pt Temp 79.6 L D ABG HCO3 18.8 L ABG O2 Sat (Measured) 95.6 ABG O2 Content 19.0 ABG Base Excess No Result Required. Bassem Test Positive O2 Delivery Device No Result Required. Oxygen Flow Rate No Result Required. Vent Mode No Result Required. Vent Rate No Result Required. Mechanical Rate No Result Required. Pressure Support Vent No Result Required. Sodium Potassium Chloride Carbon Dioxide Anion Gap BUN Creatinine Creat Clearance w eGFR POC Glucometer Random Glucose Calcium Phosphorus Magnesium Total Bilirubin GGT AST ALT Alkaline Phosphatase Troponin I Total Protein Albumin HIV 1&2 Antibody Screen HIV P24 Antigen Problem List - Problems (1) Acute respiratory failure with hypoxia Code(s): J96.01 - ACUTE RESPIRATORY FAILURE WITH HYPOXIA (2) Shingles Code(s): B02.9 - ZOSTER WITHOUT COMPLICATIONS Qualifiers: Herpes zoster complications: without complications Qualified Code(s): B02.9 - Zoster without complications (3) Pneumonia Code(s): J18.9 - PNEUMONIA, UNSPECIFIED ORGANISM (4) SLE (systemic lupus erythematosus) Code(s): M32.9 - SYSTEMIC LUPUS ERYTHEMATOSUS, UNSPECIFIED IMP ACUTE HYPOXIC RESPIRATORY FAILURE RADHA CONSOLIDATION R/O PNEUMONIA VERSUS MANAGER CLIENT SIRS ILD MEDIASTINAL ADENOPATHY ?REACTIVE SLE DM RECENT SHINGLES PLAN IV ABX PER ID O2 INHALED BRONCHODILATORS IV STEROIDS FOLLOW CULTURES WILL NEED PFTS AN OUTPATIENT WILL EVENTUALLY NEED CHEST CT TO DOCUMENT RESOLUTION OF RADHA CONSOLIDATION WEAN HF NC O2 TOLERATED DR NIX Critical care time spent in reviewing chart, evaluating patient and formulating plan - 36 minutes.
--- NOTE | 2017-09-08 13:09 | PN ---
Physical Exam: SUBJECTIVE: Patient seen and examined in the ICU. States that his breathing is better than yesterday and that he is less SOB. He endorses an occasional cough with minimal phlegm. He denies any hemoptysis, fevers, chills, headache, chest pain. OBJECTIVE: Vital Signs Period Temp Pulse Resp BP Sys/Paul Pulse Ox Last 24 Hr 97.2 F-101.7 F 93-152 24-46 117-159/66-79 3-100 GENERAL: Awake, alert, and fully oriented, in no acute distress. HEAD: Normal with no signs of trauma. EYES: PERRLA, EOMI, sclera anicteric, conjunctiva clear. No lid lag. EARS, NOSE, THROAT: Ears normal, nares patent Moist mucous membranes. NECK: supple without lymphadenopathy, JVD, or masses. LUNGS: Saturating well on High Flow O2, Diffuse crackles b/l, inspiratory squeeking, rhonchi. No accessory muscle use. HEART: Tachycardic, regular rhythm, normal S1 and S2 without murmur, rub or gallop. ABDOMEN: Obese, soft, nontender, not distended, normoactive bowel sounds, no guarding, no rebound, no masses. MUSCULOSKELETAL: Gross ROM normal. No bony deformities or tenderness. No CVA tenderness. UPPER EXTREMITIES: warm, well-perfused. No cyanosis. No clubbing. No peripheral edema. LOWER EXTREMITIES: warm, well-perfused. No calf tenderness. No peripheral edema. NEUROLOGICAL: Cranial nerves II-XII grossly intact. Normal speech. Gait not observed PSYCHIATRIC: Cooperative. Good eye contact. Appropriate mood and affect. SKIN: Warm, dry, normal turgor, no rashes or lesions noted. Laboratory Results - last 24 hr 09/07/17 09/07/17 09/07/17 16:39 16:47 23:13 WBC RBC Hgb Hct MCV MCH MCHC RDW Plt Count MPV Absolute Neuts (auto) Neutrophils % Neutrophils % (Manual) Band Neutrophils % Lymphocytes % Lymphocytes % (Manual) Monocytes % Monocytes % (Manual) Eosinophils % Eosinophils % (Manual) Basophils % Basophils % (Manual) Myelocytes % (Man) Promyelocytes % (Man) Blast Cells % (Manual) Nucleated RBC % Metamyelocytes Hypochromia Platelet Estimate Polychromasia Poikilocytosis Anisocytosis Microcytosis Macrocytosis Anticoagulation Therapy No Result Required. Puncture Site Left radial ABG pH 7.42 ABG pCO2 at Pt Temp 29.4 L ABG pO2 at Pt Temp 355.0 H* ABG HCO3 18.5 L ABG O2 Sat (Measured) 100.0 H* ABG O2 Content 16.2 ABG Base Excess -4.6 L Bassem Test Positive O2 Delivery Device Bipap Oxygen Flow Rate 100 Vent Mode S/t Vent Rate 12 Mechanical Rate No Result Required. Pressure Support Vent 15/8 Sodium Potassium Chloride Carbon Dioxide Anion Gap BUN Creatinine Creat Clearance w eGFR POC Glucometer 176.80567 [phone] Random Glucose Calcium Phosphorus Magnesium Total Bilirubin GGT AST ALT Alkaline Phosphatase Troponin I Total Protein Albumin HIV 1&2 Antibody Screen HIV P24 Antigen 09/08/17 09/08/17 09/08/17 05:30 05:30 05:30 WBC 6.8 RBC 3.78 L Hgb 12.0 Hct 34.5 L MCV 91.2 MCH 31.6 MCHC 34.7 RDW 16.0 H Plt Count 130 L MPV 9.0 Absolute Neuts (auto) 6.4 Neutrophils % 93.9 H Neutrophils % (Manual) 92.0 H Band Neutrophils % 4.0 Lymphocytes % 4.5 L D Lymphocytes % (Manual) 2.0 L Monocytes % 1.5 L D Monocytes % (Manual) 2 L Eosinophils % 0.0 D Eosinophils % (Manual) 0.0 Basophils % 0.1 Basophils % (Manual) 0.0 Myelocytes % (Man) 0 Promyelocytes % (Man) 0 Blast Cells % (Manual) 0 Nucleated RBC % 0 Metamyelocytes 0 Hypochromia 0 Platelet Estimate Decreased Polychromasia 0 Poikilocytosis 0 Anisocytosis 1+ Microcytosis 0 Macrocytosis 1+ Anticoagulation Therapy Puncture Site ABG pH ABG pCO2 at Pt Temp ABG pO2 at Pt Temp ABG HCO3 ABG O2 Sat (Measured) ABG O2 Content ABG Base Excess Bassem Test O2 Delivery Device Oxygen Flow Rate Vent Mode Vent Rate Mechanical Rate Pressure Support Vent Sodium 140 Potassium 3.9 Chloride 108 H Carbon Dioxide 21 Anion Gap 11 BUN 17 Creatinine 0.9 Creat Clearance w eGFR > 60 POC Glucometer Random Glucose 170 H D Calcium 8.6 Phosphorus 2.7 Magnesium 1.8 Total Bilirubin 0.8 GGT 68 AST 45 H D ALT 85 H Alkaline Phosphatase 90 D Troponin I 0.07 H D Total Protein 6.6 Albumin 2.6 L HIV 1&2 Antibody Screen Negative HIV P24 Antigen Negative 09/08/17 09/08/17 09/08/17 05:56 09:22 12:26 WBC RBC Hgb Hct MCV MCH MCHC RDW Plt Count MPV Absolute Neuts (auto) Neutrophils % Neutrophils % (Manual) Band Neutrophils % Lymphocytes % Lymphocytes % (Manual) Monocytes % Monocytes % (Manual) Eosinophils % Eosinophils % (Manual) Basophils % Basophils % (Manual) Myelocytes % (Man) Promyelocytes % (Man) Blast Cells % (Manual) Nucleated RBC % Metamyelocytes Hypochromia Platelet Estimate Polychromasia Poikilocytosis Anisocytosis Microcytosis Macrocytosis Anticoagulation Therapy No Result Required. Puncture Site Right radial ABG pH 7.40 ABG pCO2 at Pt Temp 29.4 L ABG pO2 at Pt Temp 79.6 L D ABG HCO3 18.8 L ABG O2 Sat (Measured) 95.6 ABG O2 Content 19.0 ABG Base Excess No Result Required. Bassem Test Positive O2 Delivery Device No Result Required. Oxygen Flow Rate No Result Required. Vent Mode No Result Required. Vent Rate No Result Required. Mechanical Rate No Result Required. Pressure Support Vent No Result Required. Sodium Potassium Chloride Carbon Dioxide Anion Gap BUN Creatinine Creat Clearance w eGFR POC Glucometer 189.56991 [phone] Random Glucose Calcium Phosphorus Magnesium Total Bilirubin GGT AST ALT Alkaline Phosphatase Troponin I Total Protein Albumin HIV 1&2 Antibody Screen HIV P24 Antigen Active Medications Generic Name Dose Route Start Last Admin Trade Name Freq PRN Reason Stop Dose Admin Acetaminophen 650 mg 09/07/17 21:55 Tylenol - PO Q6H PRN FEVER Albuterol Sulfate 1 amp 09/07/17 21:55 09/08/17 03:13 Ventolin 0.042trength) - NEB 1 amp Q6H PRN Administration SHORT OF BREATH/WHEEZING Albuterol/Ipratropium 1 amp 09/08/17 08:00 09/08/17 12:07 Duoneb - NEB 1 amp RQID VANITA Administration Ascorbic Acid 500 mg 09/08/17 12:00 Vitamin C - PO DAILY VANITA Chlorhexidine Gluconate 1 applic 09/07/17 22:00 09/07/17 23:14 Hibiclens For Decolonization - TP 1 applic HS VANITA Administration Heparin Sodium (Porcine) 5,000 unit 09/07/17 22:00 09/08/17 06:11 Heparin - SQ 5,000 unit TID VANITA Administration Levofloxacin 750 mg in 150 mls @ 150 mls/hr 09/08/17 10:00 09/08/17 09:48 Levaquin 750 Mg Premixed Ivpb - IVPB 150 mls/hr DAILY VANITA Administration Protocol Insulin Aspart 1 vial 09/07/17 22:00 09/08/17 06:11 Novolog Vial Sliding Scale - SQ 2 units ACHS VANITA Administration Protocol Methylprednisolone Sodium Succinate 40 mg 09/07/17 21:00 09/08/17 09:46 Solu-Medrol - IVPUSH 40 mg Q6H-IV VANITA Administration Mupirocin 1 applic 09/07/17 22:00 09/08/17 09:48 Bactroban Ointment (For Decolonization) - NS 09/12/17 21:59 1 applic BID VANITA Administration ASSESSMENT/PLAN: 66 yo male admitted to the ICU with pneumonia, extensive interstitial lung disease, and impending respiratory failure, which is improved from yesterday. On High Flow O2 Neuro -No known neuro issues at this time Cardio -HTN Currently 117/67, will restart home meds as necessary -Tachycardia Most likely compensation due to respiratory status Respiratory -Interstitial lung disease Hx unclear Duonebs QID Albuterol Nebs PRN Q6 -Acute CAP with impending respiratory failure ABG improved on HF O2 Will try to wean off High Flow Solu-Medrol 40 mg IV BID GI -No known GI issues at this time Endocrine -DM on metformin Insulin sliding scale for glycemic control -A1C: 6.1 Renal -No known renal insufficiency ID -ID consult appreciated -Acute CAP vs cryptogenic pneumonia received Vanc/Zosyn in the ED Levaquin 750 mg IVPB Daily -recent hx of shingles (May), no longer on acyclovir -HIV negative -Quantiferon pending Rheumatology -Hx of SLE, currently claims dormant, not on medications -Rheumatology Consult placed DVT Prophylaxis -Heparin 5000 Units SQ TID FEN -Fluids: None -Electrolytes: K+: 3.9, BMP in AM -Nutrition: Diabetic/Sodium controlled diet Disposition Will monitor in the ICU Problem List - Problems (1) Acute respiratory failure with hypoxia Code(s): J96.01 - ACUTE RESPIRATORY FAILURE WITH HYPOXIA (2) Pneumonia Code(s): J18.9 - PNEUMONIA, UNSPECIFIED ORGANISM (3) SLE (systemic lupus erythematosus) Code(s): M32.9 - SYSTEMIC LUPUS ERYTHEMATOSUS, UNSPECIFIED (4) Sepsis Code(s): A41.9 - SEPSIS, UNSPECIFIED ORGANISM (5) Shingles Code(s): B02.9 - ZOSTER WITHOUT COMPLICATIONS Qualifiers: Herpes zoster complications: without complications Qualified Code(s): B02.9 - Zoster without complications Visit type - Emergency Visit Emergency Visit: Yes ED Registration Date: 09/07/17 Care time: The patient presented to the Emergency Department on the above date and was hospitalized for further evaluation of their emergent condition. - New Patient This patient is new to me today: No - Critical Care Critical Care patient: Yes Total Critical Care Time (in minutes): 35 Critical Care Statement: The care of this patient involved high complexity decision making to prevent further life threatening deterioration of the patient 's condition and/or to evaluate & treat vital organ system(s) failure or risk of failure.
[2017-09-08] MEDS: ASCORBIC ACID 500 MG TABLET (FP) PO SCH (13:32)
--- NOTE | 2017-09-08 14:05 | PN ---
Physical Exam: SUBJECTIVE: Patient seen and examined in ICU. He feels his breathing is improved today, denies cp, sob. OBJECTIVE: Vital Signs Period Temp Pulse Resp BP Sys/Paul Pulse Ox Last 24 Hr 97.2 F-101.7 F 93-152 24-46 117-159/66-79 3-100 PE Neuro: alert, awake, cn 2-12intact Pulm: rales, crackles, + High flow NC CV: s1 s2 tachycardia Abd: s nt nd + bs Ext: warm no le edema Laboratory Results - last 24 hr 09/07/17 09/07/17 09/07/17 16:39 16:47 23:13 WBC RBC Hgb Hct MCV MCH MCHC RDW Plt Count MPV Absolute Neuts (auto) Neutrophils % Neutrophils % (Manual) Band Neutrophils % Lymphocytes % Lymphocytes % (Manual) Monocytes % Monocytes % (Manual) Eosinophils % Eosinophils % (Manual) Basophils % Basophils % (Manual) Myelocytes % (Man) Promyelocytes % (Man) Blast Cells % (Manual) Nucleated RBC % Metamyelocytes Hypochromia Platelet Estimate Polychromasia Poikilocytosis Anisocytosis Microcytosis Macrocytosis Anticoagulation Therapy No Result Required. Puncture Site Left radial ABG pH 7.42 ABG pCO2 at Pt Temp 29.4 L ABG pO2 at Pt Temp 355.0 H* ABG HCO3 18.5 L ABG O2 Sat (Measured) 100.0 H* ABG O2 Content 16.2 ABG Base Excess -4.6 L Bassem Test Positive O2 Delivery Device Bipap Oxygen Flow Rate 100 Vent Mode S/t Vent Rate 12 Mechanical Rate No Result Required. Pressure Support Vent 15/8 Sodium Potassium Chloride Carbon Dioxide Anion Gap BUN Creatinine Creat Clearance w eGFR POC Glucometer 176.27033 190.08694 Random Glucose Calcium Phosphorus Magnesium Total Bilirubin GGT AST ALT Alkaline Phosphatase Troponin I Total Protein Albumin HIV 1&2 Antibody Screen HIV P24 Antigen 09/08/17 09/08/17 09/08/17 05:30 05:30 05:30 WBC 6.8 RBC 3.78 L Hgb 12.0 Hct 34.5 L MCV 91.2 MCH 31.6 MCHC 34.7 RDW 16.0 H Plt Count 130 L MPV 9.0 Absolute Neuts (auto) 6.4 Neutrophils % 93.9 H Neutrophils % (Manual) 92.0 H Band Neutrophils % 4.0 Lymphocytes % 4.5 L D Lymphocytes % (Manual) 2.0 L Monocytes % 1.5 L D Monocytes % (Manual) 2 L Eosinophils % 0.0 D Eosinophils % (Manual) 0.0 Basophils % 0.1 Basophils % (Manual) 0.0 Myelocytes % (Man) 0 Promyelocytes % (Man) 0 Blast Cells % (Manual) 0 Nucleated RBC % 0 Metamyelocytes 0 Hypochromia 0 Platelet Estimate Decreased Polychromasia 0 Poikilocytosis 0 Anisocytosis 1+ Microcytosis 0 Macrocytosis 1+ Anticoagulation Therapy Puncture Site ABG pH ABG pCO2 at Pt Temp ABG pO2 at Pt Temp ABG HCO3 ABG O2 Sat (Measured) ABG O2 Content ABG Base Excess Bassem Test O2 Delivery Device Oxygen Flow Rate Vent Mode Vent Rate Mechanical Rate Pressure Support Vent Sodium 140 Potassium 3.9 Chloride 108 H Carbon Dioxide 21 Anion Gap 11 BUN 17 Creatinine 0.9 Creat Clearance w eGFR > 60 POC Glucometer Random Glucose 170 H D Calcium 8.6 Phosphorus 2.7 Magnesium 1.8 Total Bilirubin 0.8 GGT 68 AST 45 H D ALT 85 H Alkaline Phosphatase 90 D Troponin I 0.07 H D Total Protein 6.6 Albumin 2.6 L HIV 1&2 Antibody Screen Negative HIV P24 Antigen Negative 09/08/17 09/08/17 09/08/17 05:56 09:22 12:26 WBC RBC Hgb Hct MCV MCH MCHC RDW Plt Count MPV Absolute Neuts (auto) Neutrophils % Neutrophils % (Manual) Band Neutrophils % Lymphocytes % Lymphocytes % (Manual) Monocytes % Monocytes % (Manual) Eosinophils % Eosinophils % (Manual) Basophils % Basophils % (Manual) Myelocytes % (Man) Promyelocytes % (Man) Blast Cells % (Manual) Nucleated RBC % Metamyelocytes Hypochromia Platelet Estimate Polychromasia Poikilocytosis Anisocytosis Microcytosis Macrocytosis Anticoagulation Therapy No Result Required. Puncture Site Right radial ABG pH 7.40 ABG pCO2 at Pt Temp 29.4 L ABG pO2 at Pt Temp 79.6 L D ABG HCO3 18.8 L ABG O2 Sat (Measured) 95.6 ABG O2 Content 19.0 ABG Base Excess No Result Required. Bassem Test Positive O2 Delivery Device No Result Required. Oxygen Flow Rate No Result Required. Vent Mode No Result Required. Vent Rate No Result Required. Mechanical Rate No Result Required. Pressure Support Vent No Result Required. Sodium Potassium Chloride Carbon Dioxide Anion Gap BUN Creatinine Creat Clearance w eGFR POC Glucometer 189.52749 [phone] Random Glucose Calcium Phosphorus Magnesium Total Bilirubin GGT AST ALT Alkaline Phosphatase Troponin I Total Protein Albumin HIV 1&2 Antibody Screen HIV P24 Antigen Active Medications Generic Name Dose Route Start Last Admin Trade Name Freq PRN Reason Stop Dose Admin Acetaminophen 650 mg 09/07/17 21:55 Tylenol - PO Q6H PRN FEVER Albuterol Sulfate 1 amp 09/07/17 21:55 09/08/17 03:13 Ventolin 0.042trength) - NEB 1 amp Q6H PRN Administration SHORT OF BREATH/WHEEZING Albuterol/Ipratropium 1 amp 09/08/17 08:00 09/08/17 12:07 Duoneb - NEB 1 amp RQID VANITA Administration Ascorbic Acid 500 mg 09/08/17 12:00 Vitamin C - PO DAILY VANITA Chlorhexidine Gluconate 1 applic 09/07/17 22:00 09/07/17 23:14 Hibiclens For Decolonization - TP 1 applic HS VANITA Administration Heparin Sodium (Porcine) 5,000 unit 09/07/17 22:00 09/08/17 06:11 Heparin - SQ 5,000 unit TID VANITA Administration Levofloxacin 750 mg in 150 mls @ 150 mls/hr 09/08/17 10:00 09/08/17 09:48 Levaquin 750 Mg Premixed Ivpb - IVPB 150 mls/hr DAILY VANITA Administration Protocol Insulin Aspart 1 vial 09/07/17 22:00 09/08/17 13:12 Novolog Vial Sliding Scale - SQ 8 units ACHS VANITA Administration Protocol Methylprednisolone Sodium Succinate 40 mg 09/07/17 21:00 09/08/17 09:46 Solu-Medrol - IVPUSH 40 mg Q6H-IV VANITA Administration Mupirocin 1 applic 09/07/17 22:00 09/08/17 09:48 Bactroban Ointment (For Decolonization) - NS 09/12/17 21:59 1 applic BID VANITA Administration Microbiology 09/07/17 02:10 Urine - Urine Clean Catch Urine Culture - Final NO GROWTH OBTAINED 09/06/17 16:15 Blood - Peripheral Venous Blood Culture - Preliminary NO GROWTH OBTAINED AFTER 24 HOURS, INCUBATION TO CONTINUE FOR 4 DAYS. 09/06/17 16:15 Blood - Peripheral Venous Blood Culture - Preliminary NO GROWTH OBTAINED AFTER 24 HOURS, INCUBATION TO CONTINUE FOR 4 DAYS. Imaging: - CTAP/Chest CT: emphysematous changes and interstitial lung disease. Honeycombing. mosaic attenuation, bronchiectasis noted. infiltrate vs mass is present on RADHA. Spleen: enlarged spleen. Assessment: 66 year old male with pmhx HTN, DM II, Gout, dormant lupus, diabetes , recent shingles (05/2017), interstitial lung disease, and BPH admitted with fever, chills, low back pain/tenderness, sob. Plan: 1. Sepsis d/t RADHA pna - Levaquin 750mg daily - IV steroids 40mg q6hr - Continue High flow o2 2. Acute hypoxic resp failure - Continue high flow oxygen - On steroids 3. Interstitial lung disease - Will need PFTs and repeat imaging as outpt, close follow up 4. Recent Shingles - Treated 05/2017 5. HTN/Tachycardia - Hold metoprolol in setting of sepsis 6. DM II - ISS, BGM, ACHS - Hold po antidiabetics 7. BURKE Resolved 8. SLE - Dormant, ILD? - Rhem consulted - CHERRY pending, anti ds dna 9. Thrombocytopenia - Plts improving - Likely reactive trend Visit type - Emergency Visit Emergency Visit: Yes ED Registration Date: 09/07/17 Care time: The patient presented to the Emergency Department on the above date and was hospitalized for further evaluation of their emergent condition. - New Patient This patient is new to me today: Yes Date on this admission: 09/08/17 - Critical Care Critical Care patient: No
--- NOTE | 2017-09-08 14:33 | CON.CARD ---
Consult Consult Specialty:: Cardiology Referred by:: Nate Reason for Consultation:: PVCs, tachycardia - History of Present Illness Chief Complaint: shortness of breath History of Present Illness: 66 year old male with pmhx HTN, DM II, Gout, dormant lupus, diabetes, recent shingles (05/2017), interstitial lung disease and BPH admitted with fever, chills , low back pain/tenderness, sob being treated in the ICU for sepsis secondary to PNA. Has noted to be tachycardic with rates as high as 140s-150s bpm and with PVCs noted on tele. no chest pain, dizziness, palpitations, edema. Being treated with abx, home BP meds including metoprolol 100 mg daily have been held in setting of sepsis, also getting steroids. No prior cardiac history. - History Source History Provided By: Patient Limitations to Obtaining History: No Limitations - Past Medical History Cardio/Vascular: Yes: HTN Rheumatology: Yes: Lupus Endocrine: Yes: Diabetes Mellitus - Alcohol/Substance Use Hx Alcohol Use: No - Smoking History Smoking history: Never smoked Have you smoked in the past 12 months: No Home Medications - Allergies Allergies/Adverse Reactions: Allergies Allergy/AdvReac Type Severity Reaction Status Date / Time No Known Allergies Allergy Verified 09/07/17 03:37 - Home Medications Home Medications: Ambulatory Orders Allopurinol 300 mg PO DAILY 06/04/17 Metformin HCl [Metformin HCl ER] 500 mg PO DAILY 06/04/17 Metoprolol Succinate [Toprol Xl] 100 mg PO DAILY 06/04/17 Olmesartan/Amlodipin/Hcthiazid [Zcrbiak-Obeiby-Jiej 40-10-25Mg] 1 each PO DAILY 06/04/17 Tamsulosin HCl [Flomax] 0.4 mg PO DAILY 06/04/17 Family Disease History - Family Disease History Family History: Unremarkable Review of Systems - Review of Systems Constitutional: reports: No Symptoms Eyes: reports: No Symptoms HENT: reports: No Symptoms Neck: reports: No Symptoms Cardiovascular: reports: Shortness of Breath Respiratory: reports: No Symptoms Gastrointestinal: reports: No Symptoms Integumentary: reports: No Symptoms Neurological: reports: No Symptoms Vital Signs: Vital Signs Temperature 97.2 F L 09/08/17 02:00 Pulse Rate 96 H 09/08/17 10:05 Respiratory Rate 24 09/08/17 10:05 Blood Pressure 132/73 09/08/17 10:05 O2 Sat by Pulse Oximetry (%) 99 09/08/17 14:00 Constitutional: Yes: Well Nourished, No Distress Eyes: Yes: Conjunctiva Clear, EOM Intact HENT: Yes: Atraumatic, Normocephalic Neck: Yes: Supple Respiratory: Yes: Regular, CTA Bilaterally, Other (on high flow O2) Gastrointestinal: Yes: Normal Bowel Sounds, Soft Cardiovascular: Yes: Tachycardia Heart Sounds: Yes: S1, S2 Edema: No - Other Data Labs, Other Data: CBC, BMP 09/08/17 05:30 09/08/17 05:30 INR, PTT INR 1.27 (0.82-1.09) H 09/06/17 16:15 Troponin, BNP 09/08/17 05:30 Troponin I 0.07 H D Troponin, BNP 09/08/17 05:30 Troponin I 0.07 H D Tele: sinus with PVCs sinus tachycardia, no ischemic changes Imaging - Results EKG: Image Reviewed Assessment/Plan 66M HTN, DM II, dormant lupus, interstitial lung disease admitted for sepsis, PNA with PVCs, tachycardia PVCs - check echo - replete K if <4.0, Mg if <2.0 - asymptomatic Tachycardia - likely in setting of sepsis - patient on metoprolol at home, which has been held in setting of sepsis sepsis/PNA/advanced interstitial lung disease - on antibiotics per ICU team, IV steroids, high flow O2 HTN -holding home meds per primary team
--- NOTE | 2017-09-08 19:11 | PN ---
Progress Note, Physician History of Present Illness: patient looks much better now on high flow oxygen remaining afebrile no chills daughter in room cx results noted awaiting for legionella report - Current Medication List Current Medications: Active Medications Acetaminophen (Tylenol -) 650 mg PO Q6H PRN PRN Reason: FEVER Albuterol Sulfate (Ventolin 0.042trength) -) 1 amp NEB Q6H PRN PRN Reason: SHORT OF BREATH/WHEEZING Last Admin: 09/08/17 03:13 Dose: 1 amp Albuterol/Ipratropium (Duoneb -) 1 amp NEB RQID VANITA Last Admin: 09/08/17 16:15 Dose: 1 amp Ascorbic Acid (Vitamin C -) 500 mg PO DAILY VANITA Last Admin: 09/08/17 13:32 Dose: 500 mg Chlorhexidine Gluconate (Hibiclens For Decolonization -) 1 applic TP HS VANITA Last Admin: 09/07/17 23:14 Dose: 1 applic Heparin Sodium (Porcine) (Heparin -) 5,000 unit SQ TID VANITA Last Admin: 09/08/17 13:32 Dose: 5,000 unit Levofloxacin (Levaquin 750 Mg Premixed Ivpb -) 750 mg in 150 mls @ 150 mls/hr IVPB DAILY VANITA; Protocol Last Admin: 09/08/17 09:48 Dose: 150 mls/hr Insulin Aspart (Novolog Vial Sliding Scale -) 1 vial SQ ACHS VANITA; Protocol Last Admin: 09/08/17 17:06 Dose: 4 units Methylprednisolone Sodium Succinate (Solu-Medrol -) 40 mg IVPUSH Q6H-IV VANITA Last Admin: 09/08/17 16:00 Dose: 40 mg Mupirocin (Bactroban Ointment (For Decolonization) -) 1 applic NS BID VANITA Stop: 09/12/17 21:59 Last Admin: 09/08/17 09:48 Dose: 1 applic - Objective Vital Signs: Vital Signs Temperature 99.4 F 09/08/17 17:54 Pulse Rate 98 H 09/08/17 17:54 Respiratory Rate 22 09/08/17 17:54 Blood Pressure 146/72 09/08/17 17:54 O2 Sat by Pulse Oximetry (%) 92 L 09/08/17 19:01 Constitutional: Yes: No Distress, Calm HENT: Yes: Atraumatic Neck: Yes: Supple, Trachea Midline Cardiovascular: Yes: Regular Rate and Rhythm, Tachycardia Respiratory: Yes: Other (on high flow nasal o2) Gastrointestinal: Yes: Normal Bowel Sounds, Soft Extremities: Yes: WNL Neurological: Yes: Alert, Oriented Psychiatric: Yes: Alert, Oriented Labs: CBC, BMP 09/08/17 05:30 09/08/17 05:30 INR, PTT INR 1.27 (0.82-1.09) H 09/06/17 16:15 - ....Imaging X-ray: Report Reviewed, Image Reviewed Assessment/Plan patient continues to look very sick sob still with chills and fever had his ct of chest and abd done Problem List - Problems (1) Acute respiratory failure with hypoxia Code(s): J96.01 - ACUTE RESPIRATORY FAILURE WITH HYPOXIA (2) Shingles Code(s): B02.9 - ZOSTER WITHOUT COMPLICATIONS Qualifiers: Herpes zoster complications: without complications Qualified Code(s): B02.9 - Zoster without complications (3) Pneumonia Code(s): J18.9 - PNEUMONIA, UNSPECIFIED ORGANISM (4) SLE (systemic lupus erythematosus) Code(s): M32.9 - SYSTEMIC LUPUS ERYTHEMATOSUS, UNSPECIFIED 5 sepsis 6 increased enzymes plan continue zosyn and levaquin cx results still pending resp support pul on board rest as per icu wean from high flow oxygen as tolerated cc time 40 min
--- NOTE | 2017-09-08 19:23 | CONSULT ---
Consult Consult Specialty:: Rheumatology - History of Present Illness History of Present Illness: 66 year old male with a significant past medical history of hypertension, diabetes, gout, diabetes, recent H. Zoster (05/2017), interstitial lung disease and an enlarged prostate, admitted with progression of SOB and back pain. The patient has had progression of shortness of breath according to his daughter - since May 2016 and in particular in the last 3 weeks. Four days ago he developed fever (103.5) in addition to shortness of breath and mild productive cough. About 15 years ago the patient was referred to me to rule out lupus. I do not have the medical record, however apparently I ruled out the possibility of the disease. He has never received treatment for this problem. He denies skin rash , oral ulcers, arthralgia in hands, Raynauds phenomenon, dry eyes, dry mouth or fever prior to this admission. T max on admission was 101.5 and since yesterday he has not have fever, CT of the lumbar spine reported with no evidence of paraspinal infection. CT of the chest reports with interstitial lung disease, and infiltrate in RADHA. Hilar and mediastinal adenopathy. Laboratory work-up revealed urinalysis with glucose 1+, blood 1+ and protein 1+ . Creatinine was 0.9. CHERRY pending and anti-DNAds negative. - History Source History Provided By: Patient, Family Member, Medical Record - Past Medical History Cardio/Vascular: Yes: HTN Endocrine: Yes: Diabetes Mellitus - Alcohol/Substance Use Hx Alcohol Use: No - Smoking History Smoking history: Never smoked Have you smoked in the past 12 months: No Home Medications - Allergies Allergies/Adverse Reactions: Allergies Allergy/AdvReac Type Severity Reaction Status Date / Time No Known Allergies Allergy Verified 09/07/17 03:37 - Home Medications Home Medications: Ambulatory Orders Allopurinol 300 mg PO DAILY 06/04/17 Metformin HCl [Metformin HCl ER] 500 mg PO DAILY 06/04/17 Metoprolol Succinate [Toprol Xl] 100 mg PO DAILY 06/04/17 Olmesartan/Amlodipin/Hcthiazid [Altehrx-Zewzkx-Zgbt 40-10-25Mg] 1 each PO DAILY 06/04/17 Tamsulosin HCl [Flomax] 0.4 mg PO DAILY 06/04/17 Family Disease History - Family Disease History Family Disease History: Other: Sister (His sister had lupus.) Review of Systems - Review of Systems Constitutional: reports: Malaise Eyes: reports: No Symptoms HENT: reports: No Symptoms Neck: reports: No Symptoms Cardiovascular: reports: Shortness of Breath Respiratory: reports: SOB Gastrointestinal: reports: No Symptoms Musculoskeletal: reports: Other (Low back pain) Integumentary: reports: No Symptoms Physical Exam Vital Signs: Vital Signs Temperature 99.4 F 09/08/17 17:54 Pulse Rate 98 H 09/08/17 17:54 Respiratory Rate 22 09/08/17 17:54 Blood Pressure 146/72 09/08/17 17:54 O2 Sat by Pulse Oximetry (%) 92 L 09/08/17 19:01 Constitutional: Yes: Moderate Distress Eyes: Yes: WNL HENT: Yes: WNL Neck: Yes: Rigid Cardiovascular: Yes: WNL Respiratory: Yes: Rales, SOB Gastrointestinal: Yes: WNL Musculoskeletal: Yes: Other (No active joints.) Labs: CBC, BMP 09/08/17 05:30 09/08/17 05:30 Laboratory Tests 09/07/17 09/07/17 09/08/17 02:10 12:19 05:30 Magnesium 1.8 Total Bilirubin 0.8 GGT 68 AST 45 H D ALT 85 H Alkaline Phosphatase 90 D Total Protein 6.6 Albumin 2.6 L Urine Appearance Clear Urine pH 5.0 Ur Specific [place] 1.023 Urine Protein 1+ H Urine Glucose (UA) 1+ H Urine Ketones Trace H Urine Blood 1+ H Urine Nitrite Negative Urine Bilirubin Negative Urine Urobilinogen Negative Ur Leukocyte Esterase Negative Urine WBC (Auto) 1 Urine RBC (Auto) <1 Urine Bacteria Rare Urine Mucus Rare Double Strand DNA Ab 5 Problem List - Problems (1) SLE (systemic lupus erythematosus) Assessment/Plan: The patient was evaluated in the past for this problem and the diagnosis was ruled out. He probably had a false positive CHERRY. He does not have clinical changessuggestive of the disease. It is unlikley that the interstitial lung disease is related to connective tissue disease. Plan: CHERRY and anti-Sm/[employer]ER pending. I will request complement. No treatment indicated for lupus. Code(s): M32.9 - SYSTEMIC LUPUS ERYTHEMATOSUS, UNSPECIFIED
[2017-09-08] MEDS: CHLORHEXIDINE GLUCONATE 4% CLEANSER FOR DECOLONIZATION TP SCH (21:23)
[2017-09-09] MEDS: methylPREDNISolone NA SUCC 40 MG/1 ML VIAL IVPUSH SCH ×4 (03:10→21:30)
[2017-09-09 06:16] LABS: BASO % 0.1 % (0-2.0); HEMATOCRIT 34.4 % (35.4-49); HEMOGLOBIN 11.9 GM/dL (11.7-16.9); LYMPH % 5.6 % (8-40); MCH 31.1 pg (25.7-33.7); MCHC 34.4 g/dl (32.0-35.9); MEAN CELL VOLUME 90.4 fl (80-96); MEAN PLT VOLUME 9.2 fl (7.5-11.1); MONO % 2.1 % (3.8-10.2); NEUT % 92.2 % (42.8-82.8); PLATELET COUNT 162 K/MM3 (134-434); RBC 3.81 M/mm3 (4.00-5.60); RDW 15.8 % (11.9-15.9)
[2017-09-09] MEDS: HEPARIN NA (PORCINE) 5,000 UNITS/ML 1ML VIAL SQ SCH ×3 (06:27→21:33)
[2017-09-09] MEDS: INSULIN SLIDING SCALE (NOVOLOG) 1 VIAL SQ SCH ×4 (06:27→21:32)
[2017-09-09 06:33] LABS: ALBUMIN 2.4 g/dl (3.4-5.0); ALK PHOS 82 U/L (45-117); ANION GAP 9 (8-16); BILIRUBIN,TOTAL 0.5 mg/dL (0.2-1.0); BLOOD UREA NITROGEN 23 mg/dL (7-18); CALCIUM 8.9 mg/dL (8.5-10.1); CHLORIDE 107 mmol/L (98-107); CO2 24 mmol/L (21-32); CREATININE 0.8 mg/dL (0.7-1.3); GLUCOSE,RANDOM 194 mg/dL (74-106); MAGNESIUM 1.7 mg/dL (1.8-2.4); POTASSIUM 3.7 mmol/L (3.5-5.1); SGOT/AST 34 U/L (15-37); SGPT/ALT 82 U/L (12-78); SODIUM 140 mmol/L (136-145); TOT PROT 6.4 g/dl (6.4-8.2)
[2017-09-09 07:44] LABS: PLATELET ESTIMATE ADEQUATE
[2017-09-09] MEDS: ALBUTEROL SO4 2.5/IPRATROPIUM 0.5 INH SOL 3 ML VIAL.NEB. NEB SCH ×4 (08:11→21:08)
[2017-09-09] MEDS: TAMSULOSIN HCL 0.4 MG CAP.ER.24H (FP) PO SCH (08:58)
[2017-09-09] MEDS: ASCORBIC ACID 500 MG TABLET (FP) PO SCH ×2 (09:00→16:18)
[2017-09-09] MEDS ORDERED: MAGNESIUM OXIDE 400 MG TABLET (FP) PO ONE (09:00)
[2017-09-09] MEDS ORDERED: POTASSIUM CHLORIDE TABS 10 MEQ TABLET.ER (FP) PO ONE (09:00)
--- NOTE | 2017-09-09 11:28 | PN ---
Progress Note (short form) - Note Progress Note: s: no cp sob palps dizzy o: Vital Signs Period Temp Pulse Resp BP Sys/Paul Pulse Ox Last 24 Hr 98.4 F-100.0 F 79-98 18-32 131-167/64-81 92-99 nad no jvd rrr s1s2 no mrg cta bl nl eff aaox3 no le e/c/c no jaundice diaphoresis Current Medications Generic Name Dose Route Start Last Admin Trade Name Freq PRN Reason Stop Dose Admin Acetaminophen 650 mg 09/07/17 21:55 09/08/17 21:22 Tylenol - PO 650 mg Q6H PRN Administration FEVER Albuterol Sulfate 1 amp 09/07/17 21:55 09/08/17 03:13 Ventolin 0.042trength) - NEB 1 amp Q6H PRN Administration SHORT OF BREATH/WHEEZING Albuterol/Ipratropium 1 amp 09/08/17 08:00 09/09/17 11:20 Duoneb - NEB 1 amp RQID VANITA Administration Ascorbic Acid 1,500 mg 09/09/17 11:15 Vitamin C - PO Q6H VANITA Chlorhexidine Gluconate 1 applic 09/07/17 22:00 09/08/17 21:23 Hibiclens For Decolonization - TP 1 applic HS VANITA Administration Heparin Sodium (Porcine) 5,000 unit 09/07/17 22:00 09/09/17 06:27 Heparin - SQ 5,000 unit TID VANITA Administration Levofloxacin 750 mg in 150 mls @ 150 mls/hr 09/08/17 10:00 09/09/17 08:59 Levaquin 750 Mg Premixed Ivpb - IVPB 150 mls/hr DAILY VANITA Administration Protocol Insulin Aspart 1 vial 09/07/17 22:00 09/09/17 06:27 Novolog Vial Sliding Scale - SQ 4 units ACHS VANITA Administration Protocol Methylprednisolone Sodium Succinate 40 mg 09/07/17 21:00 09/09/17 08:59 Solu-Medrol - IVPUSH 40 mg Q6H-IV VANITA Administration Metoprolol Succinate 100 mg 09/09/17 10:00 09/09/17 09:13 Toprol Xl - PO 100 mg DAILY VANITA Administration Mupirocin 1 applic 09/07/17 22:00 09/08/17 21:22 Bactroban Ointment (For Decolonization) - NS 09/12/17 21:59 1 applic BID VANITA Administration Tamsulosin HCl 0.4 mg 09/09/17 08:30 09/09/17 08:58 Flomax - PO 0.4 mg DAILY@0830 VANITA Administration CBC, BMP 09/09/17 05:30 09/09/17 05:30 Tele: sr, occ pvcs Assessment/Plan 66M HTN, DM II, dormant lupus, interstitial lung disease admitted for sepsis, PNA with PVCs, tachycardia PVCs - improved - echo pending - cont bb - replete K if <4.0, Mg if <2.0 Tachycardia - likely in setting of sepsis - patient on metoprolol at home, which has been held in setting of sepsis-->now resumed sepsis/PNA/advanced interstitial lung disease - on antibiotics per ICU team, IV steroids, high flow O2 HTN -cont home bb
--- NOTE | 2017-09-09 11:45 | PN ---
Physical Exam: SUBJECTIVE: Patient seen and examined in the ICU. He states that his breathing is better than yesterday. Endorses minimal dry cough. Denies: headaches, fevers , chills, hemoptysis, nausea, abdominal pain. OBJECTIVE: Vital Signs Period Temp Pulse Resp BP Sys/Paul Pulse Ox Last 24 Hr 98.4 F-100.0 F 79-98 18-32 131-167/64-81 92-99 GENERAL: Awake, alert, and fully oriented, in no acute distress. HEAD: Normal with no signs of trauma. EYES: PERRLA, EOMI, sclera anicteric, conjunctiva clear. No lid lag. EARS, NOSE, THROAT: Ears normal, nares patent Moist mucous membranes. NECK: supple without lymphadenopathy, JVD, or masses. LUNGS: Saturating well on High Flow O2, Diffuse crackles b/l, inspiratory squeeking, rhonchi. No accessory muscle use. HEART: Tachycardic, regular rhythm, normal S1 and S2 without murmur, rub or gallop. ABDOMEN: Obese, soft, nontender, not distended, normoactive bowel sounds, no guarding, no rebound, no masses. MUSCULOSKELETAL: Gross ROM normal. No bony deformities or tenderness. No CVA tenderness. UPPER EXTREMITIES: warm, well-perfused. No cyanosis. No clubbing. No peripheral edema. LOWER EXTREMITIES: warm, well-perfused. No calf tenderness. No peripheral edema. NEUROLOGICAL: Cranial nerves II-XII grossly intact. Normal speech. Gait not observed PSYCHIATRIC: Cooperative. Good eye contact. Appropriate mood and affect. SKIN: Warm, dry, normal turgor, no rashes or lesions noted. Laboratory Results - last 24 hr 09/07/17 09/07/17 09/08/17 12:19 21:40 05:30 WBC RBC Hgb Hct MCV MCH MCHC RDW Plt Count MPV Absolute Neuts (auto) Neutrophils % Neutrophils % (Manual) Band Neutrophils % Lymphocytes % Lymphocytes % (Manual) Monocytes % Monocytes % (Manual) Eosinophils % Basophils % Nucleated RBC % Platelet Estimate Platelet Comment ESR Sodium Potassium Chloride Carbon Dioxide Anion Gap BUN Creatinine Creat Clearance w eGFR POC Glucometer Random Glucose Calcium Phosphorus Magnesium Total Bilirubin AST ALT Alkaline Phosphatase Total Protein Albumin CHERRY Screen Positive H CHERRY Homogeneous Pattern TNP CHERRY Nucleolar Pattern 1:320 H CHERRY Spindle Dylan Pattern TNP CHERRY Midbody Pattern TNP CHERRY Centriole Pattern TNP CHERRY Nuclear Dot Pattern TNP CHERRY PCNA Pattern TNP CHERRY Nuclear Membr Pat TNP CHERRY Speckled Pattern TNP CHERRY Centromere Pattern TNP Double Strand DNA Ab 5 Smooth Musc &VEGETABLE HARVEST WORKER Intrp 10 HIV 1&2 Ag/Ab, 4th Gen Non reactive HIV 1&2 Antibody Screen Negative HIV P24 Antigen Negative 09/08/17 09/08/17 09/08/17 05:56 12:26 16:56 WBC RBC Hgb Hct MCV MCH MCHC RDW Plt Count MPV Absolute Neuts (auto) Neutrophils % Neutrophils % (Manual) Band Neutrophils % Lymphocytes % Lymphocytes % (Manual) Monocytes % Monocytes % (Manual) Eosinophils % Basophils % Nucleated RBC % Platelet Estimate Platelet Comment ESR Sodium Potassium Chloride Carbon Dioxide Anion Gap BUN Creatinine Creat Clearance w eGFR POC Glucometer [phone] Random Glucose Calcium Phosphorus Magnesium Total Bilirubin AST ALT Alkaline Phosphatase Total Protein Albumin CHERRY Screen CHERRY Homogeneous Pattern CHERRY Nucleolar Pattern CHERRY Spindle Dylan Pattern CHERRY Midbody Pattern CHERRY Centriole Pattern CHERRY Nuclear Dot Pattern CHERRY PCNA Pattern CHERRY Nuclear Membr Pat CHERRY Speckled Pattern CHERRY Centromere Pattern Double Strand DNA Ab Smooth Musc &VEGETABLE HARVEST WORKER Intrp HIV 1&2 Ag/Ab, 4th Gen HIV 1&2 Antibody Screen HIV P24 Antigen 09/09/17 09/09/17 09/09/17 05:30 05:30 05:30 WBC 8.0 RBC 3.81 L Hgb 11.9 Hct 34.4 L MCV 90.4 MCH 31.1 MCHC 34.4 RDW 15.8 Plt Count 162 D MPV 9.2 Absolute Neuts (auto) 7.4 Neutrophils % 92.2 H Neutrophils % (Manual) 92.0 H Band Neutrophils % 5.0 Lymphocytes % 5.6 L D Lymphocytes % (Manual) 2.0 L Monocytes % 2.1 L Monocytes % (Manual) 1 L Eosinophils % 0.0 Basophils % 0.1 Nucleated RBC % 0 Platelet Estimate Adequate Platelet Comment No clumping noted ESR 103 H Sodium 140 Potassium 3.7 Chloride 107 Carbon Dioxide 24 Anion Gap 9 BUN 23 H Creatinine 0.8 Creat Clearance w eGFR > 60 POC Glucometer Random Glucose 194 H Calcium 8.9 Phosphorus 3.0 Magnesium 1.7 L Total Bilirubin 0.5 AST 34 D ALT 82 H Alkaline Phosphatase 82 Total Protein 6.4 Albumin 2.4 L CHERRY Screen CHERRY Homogeneous Pattern CHERRY Nucleolar Pattern CHERRY Spindle Dylan Pattern CHERRY Midbody Pattern CHERRY Centriole Pattern CHERRY Nuclear Dot Pattern CHERRY PCNA Pattern CHERRY Nuclear Membr Pat CHERRY Speckled Pattern CHERRY Centromere Pattern Double Strand DNA Ab Smooth Musc &VEGETABLE HARVEST WORKER Intrp HIV 1&2 Ag/Ab, 4th Gen HIV 1&2 Antibody Screen HIV P24 Antigen Active Medications Generic Name Dose Route Start Last Admin Trade Name Freq PRN Reason Stop Dose Admin Acetaminophen 650 mg 09/07/17 21:55 09/08/17 21:22 Tylenol - PO 650 mg Q6H PRN Administration FEVER Albuterol Sulfate 1 amp 09/07/17 21:55 09/08/17 03:13 Ventolin 0.042trength) - NEB 1 amp Q6H PRN Administration SHORT OF BREATH/WHEEZING Albuterol/Ipratropium 1 amp 09/08/17 08:00 09/09/17 11:20 Duoneb - NEB 1 amp RQID VANITA Administration Ascorbic Acid 1,500 mg 09/09/17 12:00 Vitamin C - PO Q6HPO VANITA Chlorhexidine Gluconate 1 applic 09/07/17 22:00 09/08/17 21:23 Hibiclens For Decolonization - TP 1 applic HS VANITA Administration Heparin Sodium (Porcine) 5,000 unit 09/07/17 22:00 09/09/17 06:27 Heparin - SQ 5,000 unit TID VANITA Administration Levofloxacin 750 mg in 150 mls @ 150 mls/hr 09/08/17 10:00 09/09/17 08:59 Levaquin 750 Mg Premixed Ivpb - IVPB 150 mls/hr DAILY VANITA Administration Protocol Insulin Aspart 1 vial 09/07/17 22:00 09/09/17 06:27 Novolog Vial Sliding Scale - SQ 4 units ACHS VANITA Administration Protocol Methylprednisolone Sodium Succinate 40 mg 09/07/17 21:00 09/09/17 08:59 Solu-Medrol - IVPUSH 40 mg Q6H-IV VANITA Administration Metoprolol Succinate 100 mg 09/09/17 10:00 09/09/17 09:13 Toprol Xl - PO 100 mg DAILY VANITA Administration Mupirocin 1 applic 09/07/17 22:00 09/08/17 21:22 Bactroban Ointment (For Decolonization) - NS 09/12/17 21:59 1 applic BID VANITA Administration Tamsulosin HCl 0.4 mg 09/09/17 08:30 09/09/17 08:58 Flomax - PO 0.4 mg DAILY@0830 VANITA Administration ASSESSMENT/PLAN: 66 yo male admitted to the ICU with pneumonia, extensive interstitial lung disease, and impending respiratory failure, which is improving. Neuro -No known neuro issues at this time Cardio -HTN Currently 141/68, will restart home meds as necessary -Tachycardia Improved Respiratory -Interstitial lung disease Hx unclear Duonebs QID Albuterol Nebs PRN Q6 -Acute CAP with impending respiratory failure ABG improved on HF O2 Wean HF to 40% ventimask Solu-Medrol 40 mg IV BID for one more day then titrate down GI -No known GI issues at this time Endocrine -DM on metformin Insulin sliding scale for glycemic control -A1C: 6.1 Renal -No known renal insufficiency ID -ID consult appreciated -Acute CAP vs cryptogenic pneumonia received Vanc/Zosyn in the ED Levaquin 750 mg IVPB Daily -recent hx of shingles (May), no longer on acyclovir -HIV negative -Quantiferon pending Rheumatology -Hx of SLE, currently claims dormant, not on medications -Rheumatology Consult placed DVT Prophylaxis -Heparin 5000 Units SQ TID FEN -Fluids: None -Electrolytes: K:3.7, M.7, repleted BMP in AM -Nutrition: Diabetic/Sodium controlled diet Disposition Will monitor in the ICU Problem List - Problems (1) Acute respiratory failure with hypoxia Code(s): J96.01 - ACUTE RESPIRATORY FAILURE WITH HYPOXIA (2) Pneumonia Code(s): J18.9 - PNEUMONIA, UNSPECIFIED ORGANISM (3) SLE (systemic lupus erythematosus) Code(s): M32.9 - SYSTEMIC LUPUS ERYTHEMATOSUS, UNSPECIFIED (4) Sepsis Code(s): A41.9 - SEPSIS, UNSPECIFIED ORGANISM (5) Shingles Code(s): B02.9 - ZOSTER WITHOUT COMPLICATIONS Qualifiers: Herpes zoster complications: without complications Qualified Code(s): B02.9 - Zoster without complications Visit type - Emergency Visit Emergency Visit: Yes ED Registration Date: 09/07/17 Care time: The patient presented to the Emergency Department on the above date and was hospitalized for further evaluation of their emergent condition. - New Patient This patient is new to me today: No - Critical Care Critical Care patient: Yes Total Critical Care Time (in minutes): 35 Critical Care Statement: The care of this patient involved high complexity decision making to prevent further life threatening deterioration of the patient 's condition and/or to evaluate & treat vital organ system(s) failure or risk of failure.
--- NOTE | 2017-09-09 11:56 | PN ---
Teaching Attending Note Name of Resident: Allan Head ATTENDING PHYSICIAN STATEMENT I saw and evaluated the patient. I reviewed the resident's note and discussed the case with the resident. I agree with the resident's findings and plan as documented. SUBJECTIVE: Patient seen and examined in the ICU. Awake and alert on HF NC O2 (35liters/35% FiO2) Denies CP. SOB is better today. Some minimal dry cough. No hemoptysis. CXR: better inspiratory effort / improving infiltrates Intake & Output 09/06/17 09/07/17 09/08/17 09/09/17 23:59 23:59 23:59 23:59 Intake Total 240 Output Total 200 2250 1400 Balance Weight 187 lb 193 lb 12.581 oz 192 lb 14.472 oz 173 lb 11.588 oz Last Vital Signs Temp Pulse Resp BP Pulse Ox 99.0 F 83 20 167/81 96 09/09/17 06:06 09/09/17 11:24 09/09/17 06:06 09/09/17 06:06 09/09/17 11:24 Active Medications Acetaminophen (Tylenol -) 650 mg PO Q6H PRN PRN Reason: FEVER Last Admin: 09/08/17 21:22 Dose: 650 mg Albuterol Sulfate (Ventolin 0.042trength) -) 1 amp NEB Q6H PRN PRN Reason: SHORT OF BREATH/WHEEZING Last Admin: 09/08/17 03:13 Dose: 1 amp Albuterol/Ipratropium (Duoneb -) 1 amp NEB RQID VANITA Last Admin: 09/09/17 11:20 Dose: 1 amp Ascorbic Acid (Vitamin C -) 1,500 mg PO Q6HPO VANITA Chlorhexidine Gluconate (Hibiclens For Decolonization -) 1 applic TP HS VANITA Last Admin: 09/08/17 21:23 Dose: 1 applic Heparin Sodium (Porcine) (Heparin -) 5,000 unit SQ TID VANITA Last Admin: 09/09/17 06:27 Dose: 5,000 unit Levofloxacin (Levaquin 750 Mg Premixed Ivpb -) 750 mg in 150 mls @ 150 mls/hr IVPB DAILY [facility]; Protocol Last Admin: 09/09/17 08:59 Dose: 150 mls/hr Insulin Aspart (Novolog Vial Sliding Scale -) 1 vial SQ ACHS [facility]; Protocol Last Admin: 09/09/17 06:27 Dose: 4 units Methylprednisolone Sodium Succinate (Solu-Medrol -) 40 mg IVPUSH Q6H-IV [facility] Last Admin: 09/09/17 08:59 Dose: 40 mg Metoprolol Succinate (Toprol Xl -) 100 mg PO DAILY [facility] Last Admin: 09/09/17 09:13 Dose: 100 mg Mupirocin (Bactroban Ointment (For Decolonization) -) 1 applic NS BID [facility] Stop: 09/12/17 21:59 Last Admin: 09/08/17 21:22 Dose: 1 applic Tamsulosin HCl (Flomax -) 0.4 mg PO DAILY@0830 [facility] Last Admin: 09/09/17 08:58 Dose: 0.4 mg GENERAL: Awake, alert, fully oriented, Mildly tachypneic at rest HEAD: Normal with no signs of trauma. EYES: Pupils equal, round and reactive to light, extraocular movements intact, sclera anicteric, conjunctiva clear. No lid lag. EARS, NOSE, THROAT: Ears normal, nares patent Moist mucous membranes. NECK: supple without lymphadenopathy, JVD, or masses. LUNGS: Rales, Rhonchi, inspiratory squeaks, crackles, no wheezing HEART: regular rhythm, normal S1 and S2, No rub or gallop. ABDOMEN: Obese, soft, nontender, not distended, normoactive bowel sounds, no guarding, no rebound, no masses. MUSCULOSKELETAL: No bony deformities or tenderness. No CVA tenderness. UPPER EXTREMITIES: 2+ pulses, warm, well-perfused. No cyanosis. No clubbing. No peripheral edema. LOWER EXTREMITIES: 2+ pulses, warm, well-perfused. No calf tenderness. No peripheral edema. NEUROLOGICAL: Non-focal PSYCHIATRIC: Cooperative. Good eye contact. Appropriate mood and affect. SKIN: Warm, dry, normal turgor, no rashes or lesions noted. Laboratory Results - last 24 hr 09/07/17 09/07/17 09/08/17 12:19 21:40 05:30 WBC RBC Hgb Hct MCV MCH MCHC RDW Plt Count MPV Absolute Neuts (auto) Neutrophils % Neutrophils % (Manual) Band Neutrophils % Lymphocytes % Lymphocytes % (Manual) Monocytes % Monocytes % (Manual) Eosinophils % Basophils % Nucleated RBC % Platelet Estimate Platelet Comment ESR Sodium Potassium Chloride Carbon Dioxide Anion Gap BUN Creatinine Creat Clearance w eGFR POC Glucometer Random Glucose Calcium Phosphorus Magnesium Total Bilirubin AST ALT Alkaline Phosphatase Total Protein Albumin CHERRY Screen Positive H CHERRY Homogeneous Pattern TNP CHERRY Nucleolar Pattern 1:320 H CHERRY Spindle Dylan Pattern TNP CHERRY Midbody Pattern TNP CHERRY Centriole Pattern TNP CHERRY Nuclear Dot Pattern TNP CHERRY PCNA Pattern TNP CHERRY Nuclear Membr Pat TNP CHERRY Speckled Pattern TNP CHERRY Centromere Pattern TNP Double Strand DNA Ab 5 Smooth Musc &TREASURY AGENT Intrp 10 HIV 1&2 Ag/Ab, 4th Gen Non reactive HIV 1&2 Antibody Screen Negative HIV P24 Antigen Negative 09/08/17 09/08/17 09/08/17 05:56 12:26 16:56 WBC RBC Hgb Hct MCV MCH MCHC RDW Plt Count MPV Absolute Neuts (auto) Neutrophils % Neutrophils % (Manual) Band Neutrophils % Lymphocytes % Lymphocytes % (Manual) Monocytes % Monocytes % (Manual) Eosinophils % Basophils % Nucleated RBC % Platelet Estimate Platelet Comment ESR Sodium Potassium Chloride Carbon Dioxide Anion Gap BUN Creatinine Creat Clearance w eGFR POC Glucometer [phone] Random Glucose Calcium Phosphorus Magnesium Total Bilirubin AST ALT Alkaline Phosphatase Total Protein Albumin CHERRY Screen CHERRY Homogeneous Pattern CHERRY Nucleolar Pattern CHERRY Spindle Dylan Pattern CHERRY Midbody Pattern CHERRY Centriole Pattern CHERRY Nuclear Dot Pattern CHERRY PCNA Pattern CHERRY Nuclear Membr Pat CHERRY Speckled Pattern CHERRY Centromere Pattern Double Strand DNA Ab Smooth Musc &TREASURY AGENT Intrp HIV 1&2 Ag/Ab, 4th Gen HIV 1&2 Antibody Screen HIV P24 Antigen 09/08/17 09/09/17 09/09/17 21:33 05:30 05:30 WBC 8.0 RBC 3.81 L Hgb 11.9 Hct 34.4 L MCV 90.4 MCH 31.1 MCHC 34.4 RDW 15.8 Plt Count 162 D MPV 9.2 Absolute Neuts (auto) 7.4 Neutrophils % 92.2 H Neutrophils % (Manual) 92.0 H Band Neutrophils % 5.0 Lymphocytes % 5.6 L D Lymphocytes % (Manual) 2.0 L Monocytes % 2.1 L Monocytes % (Manual) 1 L Eosinophils % 0.0 Basophils % 0.1 Nucleated RBC % 0 Platelet Estimate Adequate Platelet Comment No clumping noted ESR Sodium 140 Potassium 3.7 Chloride 107 Carbon Dioxide 24 Anion Gap 9 BUN 23 H Creatinine 0.8 Creat Clearance w eGFR > 60 POC Glucometer [phone] Random Glucose 194 H Calcium 8.9 Phosphorus 3.0 Magnesium 1.7 L Total Bilirubin 0.5 AST 34 D ALT 82 H Alkaline Phosphatase 82 Total Protein 6.4 Albumin 2.4 L CHERRY Screen CHERRY Homogeneous Pattern CHERRY Nucleolar Pattern CHERRY Spindle Dylan Pattern CHERRY Midbody Pattern CHERRY Centriole Pattern CHERRY Nuclear Dot Pattern CHERRY PCNA Pattern CHERRY Nuclear Membr Pat CHERRY Speckled Pattern CHERRY Centromere Pattern Double Strand DNA Ab Smooth Musc &TREASURY AGENT Intrp HIV 1&2 Ag/Ab, 4th Gen HIV 1&2 Antibody Screen HIV P24 Antigen 09/09/17 09/09/17 05:30 06:26 WBC RBC Hgb Hct MCV MCH MCHC RDW Plt Count MPV Absolute Neuts (auto) Neutrophils % Neutrophils % (Manual) Band Neutrophils % Lymphocytes % Lymphocytes % (Manual) Monocytes % Monocytes % (Manual) Eosinophils % Basophils % Nucleated RBC % Platelet Estimate Platelet Comment ESR 103 H Sodium Potassium Chloride Carbon Dioxide Anion Gap BUN Creatinine Creat Clearance w eGFR POC Glucometer [phone] Random Glucose Calcium Phosphorus Magnesium Total Bilirubin AST ALT Alkaline Phosphatase Total Protein Albumin CHERRY Screen CHERRY Homogeneous Pattern CHERRY Nucleolar Pattern CHERRY Spindle Dylan Pattern CHERRY Midbody Pattern CHERRY Centriole Pattern CHERRY Nuclear Dot Pattern CHERRY PCNA Pattern CHERRY Nuclear Membr Pat CHERRY Speckled Pattern CHERRY Centromere Pattern Double Strand DNA Ab Smooth Musc &TREASURY AGENT Intrp HIV 1&2 Ag/Ab, 4th Gen HIV 1&2 Antibody Screen HIV P24 Antigen Problem List - Problems (1) Acute respiratory failure with hypoxia Code(s): J96.01 - ACUTE RESPIRATORY FAILURE WITH HYPOXIA (2) Shingles Code(s): B02.9 - ZOSTER WITHOUT COMPLICATIONS Qualifiers: Herpes zoster complications: without complications Qualified Code(s): B02.9 - Zoster without complications (3) Pneumonia Code(s): J18.9 - PNEUMONIA, UNSPECIFIED ORGANISM (4) SLE (systemic lupus erythematosus) Code(s): M32.9 - SYSTEMIC LUPUS ERYTHEMATOSUS, UNSPECIFIED IMP ACUTE HYPOXIC RESPIRATORY FAILURE RADHA CONSOLIDATION R/O PNEUMONIA VERSUS DETENTION SERGEANT SIRS ILD MEDIASTINAL ADENOPATHY ?REACTIVE SLE DM RECENT SHINGLES PLAN IV ABX PER ID O2 INHALED BRONCHODILATORS IV STEROIDS: START TO WEAN IN AM FOLLOW CULTURES WILL NEED PFTS AN OUTPATIENT WILL EVENTUALLY NEED CHEST CT TO DOCUMENT RESOLUTION OF RADHA CONSOLIDATION WEAN HF NC O2 TOLERATED DR NIX Critical care time spent in reviewing chart, evaluating patient and formulating plan - 36 minutes.
--- NOTE | 2017-09-09 13:29 | ECHO ---
Name: ALBERTO WINKLERGO Exam:Adult Echocardiogram Study Date: 09/09/2017 09:58 AM Age: 66 yrs Reason For Study: R/O STRUCTURAL HEART DEFECTS Height: 68 in Weight: 192 lb BSA: 2.0 m2 MMode/2D Measurements & Calculations IVSd: 1.1 cm Ao root diam: 3.1 cm LVIDd: 4.5 cm LA dimension: 4.2 cm LVIDs: 3.2 cm LVPWd: 0.71 cm EDV(Teich): 90.2 ml TAPSE: 1.3 cm ESV(Teich): 42.4 ml RV S Maco: 15.6 cm/sec Doppler Measurements & Calculations MV E max maco: 50.3 cm/sec AI P1/2t: 485.3 msec MV A max maco: 112.0 cm/sec MV E/A: 0.45 AI max maco: 426.5 cm/sec MR max maco: 261.0 cm/sec AI max P.8 mmHg MR max P.2 mmHg AI dec slope: 257.5 cm/sec2 TR max maco: 270.4 cm/sec Med Peak E' Maco: 6.3 cm/sec TR max P.1 mmHg Med E/e': 8.0 Lat Peak E' Maco: 11.3 cm/sec Lat E/e': 4.5 Procedure The study was technically limited with all images being suboptimal in quality. Left Ventricle Left ventricular systolic function is grossly normal. The transmitral spectral Doppler flow pattern i s suggestive of impaired LV relaxation. Right Ventricle The right ventricle is grossly normal size. The right ventricular systolic function is grossly normal . Atria The left atrium is borderline dilated. Mitral Valve There is mild to moderate mitral annular calcification. There is no mitral valve stenosis. There is m ild mitral regurgitation. Tricuspid Valve The tricuspid valve is not well visualized, but is grossly normal. There is mild tricuspid regurgitat ion. Right ventricular systolic pressure is elevated at 30-40mmHg. Aortic Valve The aortic valve opens well. No hemodynamically significant valvular aortic stenosis. Mild aortic regurgitation. Pulmonic Valve The pulmonic valve is not well seen, but is grossly normal. There is no pulmonic valvular stenosis. T here is no pulmonic valvular regurgitation. Great Vessels The aortic root is normal size. Pericardium/Pleura There is no pericardial effusion. Interpretation Summary The study was technically limited with all images being suboptimal in quality. Left ventricular systolic function is grossly normal. The right ventricle is grossly normal size. The right ventricular systolic function is grossly normal. The left atrium is borderline dilated. There is mild to moderate mitral annular calcification. There is mild mitral regurgitation. There is mild tricuspid regurgitation. Right ventricular systolic pressure is elevated at 30-40mmHg. Mild aortic regurgitation. There is no pericardial effusion. MD Hernesto Katz 09/09/2017 01:29 PM
[2017-09-09 14:04] VITALS: BMI 26.3
--- NOTE | 2017-09-09 15:43 | PN ---
Physical Exam: SUBJECTIVE: Patient seen and examined in ICU. States his breathing is better, he has no cough. Per daughter at bedside pt was worked up on phone and had to change to from OR. satting at 97% on 40% OBJECTIVE: Vital Signs Period Temp Pulse Resp BP Sys/Paul Pulse Ox Last 24 Hr 98 F-100.0 F 79-98 18-24 131-167/64-81 92-98 PE Neuro: alert, awake, cn 2-12intact Pulm: rales, crackles, + High flow NC CV: s1 s2 tachycardia Abd: s nt nd + bs Ext: warm no le edema Laboratory Results - last 24 hr 09/07/17 09/07/17 09/07/17 12:19 21:40 21:40 WBC RBC Hgb Hct MCV MCH MCHC RDW Plt Count MPV Absolute Neuts (auto) Neutrophils % Neutrophils % (Manual) Band Neutrophils % Lymphocytes % Lymphocytes % (Manual) Monocytes % Monocytes % (Manual) Eosinophils % Basophils % Nucleated RBC % Platelet Estimate Platelet Comment ESR Sodium Potassium Chloride Carbon Dioxide Anion Gap BUN Creatinine Creat Clearance w eGFR POC Glucometer Random Glucose Calcium Phosphorus Magnesium Total Bilirubin AST ALT Alkaline Phosphatase Total Protein Albumin CHERRY Screen Positive H CHERRY Homogeneous Pattern TNP CHERRY Nucleolar Pattern 1:320 H CHERRY Spindle Dylan Pattern TNP CHERRY Midbody Pattern TNP CHERRY Centriole Pattern TNP CHERRY Nuclear Dot Pattern TNP CHERRY PCNA Pattern TNP CHERRY Nuclear Membr Pat TNP CHERRY Speckled Pattern TNP CHERRY Centromere Pattern TNP Smooth Musc &[employer] Intrp 10 HIV 1&2 Ag/Ab, 4th Gen Non reactive TB Test (QFT) Negative 09/08/17 09/08/17 09/09/17 16:56 21:33 05:30 WBC 8.0 RBC 3.81 L Hgb 11.9 Hct 34.4 L MCV 90.4 MCH 31.1 MCHC 34.4 RDW 15.8 Plt Count 162 D MPV 9.2 Absolute Neuts (auto) 7.4 Neutrophils % 92.2 H Neutrophils % (Manual) 92.0 H Band Neutrophils % 5.0 Lymphocytes % 5.6 L D Lymphocytes % (Manual) 2.0 L Monocytes % 2.1 L Monocytes % (Manual) 1 L Eosinophils % 0.0 Basophils % 0.1 Nucleated RBC % 0 Platelet Estimate Adequate Platelet Comment No clumping noted ESR Sodium Potassium Chloride Carbon Dioxide Anion Gap BUN Creatinine Creat Clearance w eGFR POC Glucometer [phone] Random Glucose Calcium Phosphorus Magnesium Total Bilirubin AST ALT Alkaline Phosphatase Total Protein Albumin CHERRY Screen CHERRY Homogeneous Pattern CHERRY Nucleolar Pattern CHERRY Spindle Dylan Pattern CHERRY Midbody Pattern CHERRY Centriole Pattern CHERRY Nuclear Dot Pattern CHERRY PCNA Pattern CHERRY Nuclear Membr Pat CHERRY Speckled Pattern CHERRY Centromere Pattern Smooth Musc &[employer] Intrp HIV 1&2 Ag/Ab, 4th Gen TB Test (QFT) 09/09/17 09/09/17 09/09/17 05:30 05:30 06:26 WBC RBC Hgb Hct MCV MCH MCHC RDW Plt Count MPV Absolute Neuts (auto) Neutrophils % Neutrophils % (Manual) Band Neutrophils % Lymphocytes % Lymphocytes % (Manual) Monocytes % Monocytes % (Manual) Eosinophils % Basophils % Nucleated RBC % Platelet Estimate Platelet Comment ESR 103 H Sodium 140 Potassium 3.7 Chloride 107 Carbon Dioxide 24 Anion Gap 9 BUN 23 H Creatinine 0.8 Creat Clearance w eGFR > 60 POC Glucometer [phone] Random Glucose 194 H Calcium 8.9 Phosphorus 3.0 Magnesium 1.7 L Total Bilirubin 0.5 AST 34 D ALT 82 H Alkaline Phosphatase 82 Total Protein 6.4 Albumin 2.4 L CHERRY Screen CHERRY Homogeneous Pattern CHERRY Nucleolar Pattern CHERRY Spindle Dylan Pattern CHERRY Midbody Pattern CHERRY Centriole Pattern CHERRY Nuclear Dot Pattern CHERRY PCNA Pattern CHERRY Nuclear Membr Pat CHERRY Speckled Pattern CHERRY Centromere Pattern Smooth Musc &[employer] Intrp HIV 1&2 Ag/Ab, 4th Gen TB Test (QFT) Active Medications Generic Name Dose Route Start Last Admin Trade Name Freq PRN Reason Stop Dose Admin Acetaminophen 650 mg 09/07/17 21:55 09/08/17 21:22 Tylenol - PO 650 mg Q6H PRN Administration FEVER Albuterol Sulfate 1 amp 09/07/17 21:55 09/08/17 03:13 Ventolin 0.042trength) - NEB 1 amp Q6H PRN Administration SHORT OF BREATH/WHEEZING Albuterol/Ipratropium 1 amp 09/08/17 08:00 09/09/17 11:20 Duoneb - NEB 1 amp RQID VANITA Administration Ascorbic Acid 1,500 mg 09/09/17 12:00 Vitamin C - PO Q6HPO VANITA Chlorhexidine Gluconate 1 applic 09/07/17 22:00 09/08/17 21:23 Hibiclens For Decolonization - TP 1 applic HS VANITA Administration Heparin Sodium (Porcine) 5,000 unit 09/07/17 22:00 09/09/17 06:27 Heparin - SQ 5,000 unit TID VANITA Administration Levofloxacin 750 mg in 150 mls @ 150 mls/hr 09/08/17 10:00 09/09/17 08:59 Levaquin 750 Mg Premixed Ivpb - IVPB 150 mls/hr DAILY VANITA Administration Protocol Insulin Aspart 1 vial 09/07/17 22:00 09/09/17 12:28 Novolog Vial Sliding Scale - SQ 4 units ACHS VANITA Administration Protocol Methylprednisolone Sodium Succinate 40 mg 09/07/17 21:00 09/09/17 08:59 Solu-Medrol - IVPUSH 40 mg Q6H-IV VANITA Administration Metoprolol Succinate 100 mg 09/09/17 10:00 09/09/17 09:13 Toprol Xl - PO 100 mg DAILY VANITA Administration Mupirocin 1 applic 09/07/17 22:00 09/08/17 21:22 Bactroban Ointment (For Decolonization) - NS 09/12/17 21:59 1 applic BID VANITA Administration Tamsulosin HCl 0.4 mg 09/09/17 08:30 09/09/17 08:58 Flomax - PO 0.4 mg DAILY@0830 VANITA Administration Imaging: - CTAP/Chest CT: emphysematous changes and interstitial lung disease. Honeycombing. mosaic attenuation, bronchiectasis noted. infiltrate vs mass is present on RADHA. Spleen: enlarged spleen. Assessment: 66 year old male with pmhx HTN, DM II, Gout, dormant lupus, diabetes , recent shingles (05/2017), interstitial lung disease, and BPH admitted with fever, chills, low back pain/tenderness, sob. Plan: 1. Sepsis d/t RADHA pna - Levaquin 750mg daily - IV steroids 40mg q6hr, taper in AM - Continue High flow o2 2. Acute hypoxic resp failure - Wean supplemental 02, maintain venti mask currently - On steroids 3. Interstitial lung disease - Will need PFTs and repeat imaging as outpt, close follow up 4. Recent Shingles - Treated 05/2017 5. HTN/Tachycardia - Hold metoprolol in setting of sepsis 6. DM II - ISS, BGM, ACHS - Hold po antidiabetics 7. BURKE Resolved 8. SLE - Dormant, ILD? - CHERRY + - Rhem consulted 9. Thrombocytopenia - Plts improving - Likely reactive trend Visit type - Emergency Visit Emergency Visit: Yes ED Registration Date: 09/07/17 Care time: The patient presented to the Emergency Department on the above date and was hospitalized for further evaluation of their emergent condition. - New Patient This patient is new to me today: No - Critical Care Critical Care patient: No
[2017-09-09] MEDS: MUPIROCIN 2% TOPICAL OINTMENT FOR DECOLONIZATION NS SCH ×2 (16:18→21:33)
[2017-09-09] MEDS: CHLORHEXIDINE GLUCONATE 4% CLEANSER FOR DECOLONIZATION TP SCH (21:32)
--- NOTE | 2017-09-09 21:35 | PN ---
Progress Note, Physician History of Present Illness: continues to improve patient now transitioned to nasal canula still some shallow breathing feels much better - Current Medication List Current Medications: Active Medications Acetaminophen (Tylenol -) 650 mg PO Q6H PRN PRN Reason: FEVER Last Admin: 09/08/17 21:22 Dose: 650 mg Albuterol Sulfate (Ventolin 0.042trength) -) 1 amp NEB Q6H PRN PRN Reason: SHORT OF BREATH/WHEEZING Last Admin: 09/08/17 03:13 Dose: 1 amp Albuterol/Ipratropium (Duoneb -) 1 amp NEB RQID VANITA Last Admin: 09/09/17 21:08 Dose: 1 amp Ascorbic Acid (Vitamin C -) 1,500 mg PO Q6HPO VANITA Last Admin: 09/09/17 16:18 Dose: 1,500 mg Chlorhexidine Gluconate (Hibiclens For Decolonization -) 1 applic TP HS VANITA Last Admin: 09/09/17 21:32 Dose: 1 applic Heparin Sodium (Porcine) (Heparin -) 5,000 unit SQ TID VANITA Last Admin: 09/09/17 21:33 Dose: 5,000 unit Levofloxacin (Levaquin 750 Mg Premixed Ivpb -) 750 mg in 150 mls @ 150 mls/hr IVPB DAILY [facility]; Protocol Last Admin: 09/09/17 08:59 Dose: 150 mls/hr Insulin Aspart (Novolog Vial Sliding Scale -) 1 vial SQ ACHS VANITA; Protocol Last Admin: 09/09/17 21:32 Dose: 6 units Methylprednisolone Sodium Succinate (Solu-Medrol -) 40 mg IVPUSH Q6H-IV VANITA Last Admin: 09/09/17 21:30 Dose: 40 mg Metoprolol Succinate (Toprol Xl -) 100 mg PO DAILY VANITA Last Admin: 09/09/17 09:13 Dose: 100 mg Mupirocin (Bactroban Ointment (For Decolonization) -) 1 applic NS BID VANITA Stop: 09/12/17 21:59 Last Admin: 09/09/17 21:33 Dose: 1 applic Tamsulosin HCl (Flomax -) 0.4 mg PO DAILY@0830 VANITA Last Admin: 09/09/17 08:58 Dose: 0.4 mg - Objective Vital Signs: Vital Signs Temperature 98 F 09/09/17 14:00 Pulse Rate 86 09/09/17 16:30 Respiratory Rate 20 09/09/17 16:30 Blood Pressure 132/82 09/09/17 16:30 O2 Sat by Pulse Oximetry (%) 96 09/09/17 11:24 Constitutional: Yes: No Distress, Calm Cardiovascular: Yes: Regular Rate and Rhythm Respiratory: Yes: Regular, On Nasal O2, Poor Air Entry Gastrointestinal: Yes: Normal Bowel Sounds, Soft Genitourinary: Yes: WNL Musculoskeletal: Yes: WNL Extremities: Yes: WNL Integumentary: Yes: WNL Neurological: Yes: Alert, Oriented Psychiatric: Yes: Alert, Oriented Labs: CBC, BMP 09/09/17 05:30 09/09/17 05:30 INR, PTT INR 1.27 (0.82-1.09) H 09/06/17 16:15 Assessment/Plan (1) Acute respiratory failure with hypoxia Code(s): J96.01 - ACUTE RESPIRATORY FAILURE WITH HYPOXIA (2) Shingles Code(s): B02.9 - ZOSTER WITHOUT COMPLICATIONS Qualifiers: Herpes zoster complications: without complications Qualified Code(s): B02.9 - Zoster without complications (3) Pneumonia Code(s): J18.9 - PNEUMONIA, UNSPECIFIED ORGANISM (4) SLE (systemic lupus erythematosus) Code(s): M32.9 - SYSTEMIC LUPUS ERYTHEMATOSUS, UNSPECIFIED plan continue as per icu continue current abx all cx report noted patient improving xray seen and noted rest as per the team resp support cc 40 min
[2017-09-10] MEDS: ASCORBIC ACID 500 MG TABLET (FP) PO SCH ×4 (00:52→17:27)
[2017-09-10] MEDS: methylPREDNISolone NA SUCC 40 MG/1 ML VIAL IVPUSH SCH ×3 (02:04→17:27)
[2017-09-10] MEDS: HEPARIN NA (PORCINE) 5,000 UNITS/ML 1ML VIAL SQ SCH ×3 (05:53→21:16)
[2017-09-10] MEDS: INSULIN SLIDING SCALE (NOVOLOG) 1 VIAL SQ SCH ×4 (06:06→21:16)
[2017-09-10 06:07] LABS: BASO % 0.1 % (0-2.0); HEMATOCRIT 35.9 % (35.4-49); HEMOGLOBIN 12.4 GM/dL (11.7-16.9); LYMPH % 6.7 % (8-40); MCHC 34.4 g/dl (32.0-35.9); MEAN PLT VOLUME 8.8 fl (7.5-11.1); MONO % 2.5 % (3.8-10.2); NEUT % 90.7 % (42.8-82.8); PLATELET COUNT 175 K/MM3 (134-434); RBC 3.99 M/mm3 (4.00-5.60); RDW 15.8 % (11.9-15.9); WHITE BLOOD COUNT 7.1 K/mm3 (4.0-10.0)
[2017-09-10 06:28] LABS: ALBUMIN 2.4 g/dl (3.4-5.0); ANION GAP 4 (8-16); BLOOD UREA NITROGEN 29 mg/dL (7-18); CALCIUM 8.7 mg/dL (8.5-10.1); CHLORIDE 108 mmol/L (98-107); CO2 26 mmol/L (21-32); GLUCOSE,RANDOM 199 mg/dL (74-106); MAGNESIUM 1.9 mg/dL (1.8-2.4); PHOSPHOROUS 3.1 mg/dL (2.5-4.9); POTASSIUM 4.2 mmol/L (3.5-5.1); SGOT/AST 23 U/L (15-37); SODIUM 138 mmol/L (136-145)
[2017-09-10 06:30] LABS: ALK PHOS 74 U/L (45-117); BILIRUBIN,TOTAL 0.4 mg/dL (0.2-1.0); CREATININE 0.8 mg/dL (0.7-1.3); SGPT/ALT 71 U/L (12-78); TOT PROT 6.2 g/dl (6.4-8.2)
[2017-09-10] MEDS: ALBUTEROL SO4 2.5/IPRATROPIUM 0.5 INH SOL 3 ML VIAL.NEB. NEB SCH ×4 (08:14→21:30)
[2017-09-10] MEDS: TAMSULOSIN HCL 0.4 MG CAP.ER.24H (FP) PO SCH (08:51)
[2017-09-10] MEDS: MUPIROCIN 2% TOPICAL OINTMENT FOR DECOLONIZATION NS SCH ×2 (09:04→21:17)
--- NOTE | 2017-09-10 10:28 | PN ---
Teaching Attending Note Name of Resident: Parth Wade ATTENDING PHYSICIAN STATEMENT I saw and evaluated the patient. I reviewed the resident's note and discussed the case with the resident. I agree with the resident's findings and plan as documented. SUBJECTIVE: Pt seen and examined in the ICU. States breathing continues to improve. Saturating well on nasal cannula. OBJECTIVE: Vital Signs Period Temp Pulse Resp BP Sys/Paul Pulse Ox Last 24 Hr 97.9 F-98.6 F 69-103 18-31 132-153/59-82 95-98 Intake & Output 09/07/17 09/08/17 09/09/17 09/10/17 23:59 23:59 23:59 23:59 Intake Total 240 630 240 Output Total 200 2250 2200 600 Balance -200 -2010 -1570 -360 Weight 87.9 kg 87.5 kg 78.471 kg 78.789 kg Gen: NAD at rest Heart: RRR Lung: bibasilar rales Abd: soft, nontender Ext: no edema CBC, BMP 09/10/17 05:30 09/10/17 05:30 Active Medications Acetaminophen (Tylenol -) 650 mg PO Q6H PRN PRN Reason: FEVER Last Admin: 09/08/17 21:22 Dose: 650 mg Albuterol Sulfate (Ventolin 0.042trength) -) 1 amp NEB Q6H PRN PRN Reason: SHORT OF BREATH/WHEEZING Last Admin: 09/08/17 03:13 Dose: 1 amp Albuterol/Ipratropium (Duoneb -) 1 amp NEB RQID [facility] Last Admin: 09/10/17 08:14 Dose: 1 amp Ascorbic Acid (Vitamin C -) 1,500 mg PO Q6HPO VANITA Last Admin: 09/10/17 05:53 Dose: 1,500 mg Chlorhexidine Gluconate (Hibiclens For Decolonization -) 1 applic TP HS VANITA Last Admin: 09/09/17 21:32 Dose: 1 applic Heparin Sodium (Porcine) (Heparin -) 5,000 unit SQ TID VANITA Last Admin: 09/10/17 05:53 Dose: 5,000 unit Levofloxacin (Levaquin 750 Mg Premixed Ivpb -) 750 mg in 150 mls @ 150 mls/hr IVPB DAILY [facility]; Protocol Last Admin: 09/10/17 09:04 Dose: 150 mls/hr Insulin Aspart (Novolog Vial Sliding Scale -) 1 vial SQ ACHS [facility]; Protocol Last Admin: 09/10/17 06:06 Dose: 4 units Methylprednisolone Sodium Succinate (Solu-Medrol -) 40 mg IVPUSH Q8H-IV VANITA Metoprolol Succinate (Toprol Xl -) 100 mg PO DAILY [facility] Last Admin: 09/10/17 09:04 Dose: 100 mg Mupirocin (Bactroban Ointment (For Decolonization) -) 1 applic NS BID [facility] Stop: 09/12/17 21:59 Last Admin: 09/10/17 09:04 Dose: 1 applic Tamsulosin HCl (Flomax -) 0.4 mg PO DAILY@0830 [facility] Last Admin: 09/10/17 08:51 Dose: 0.4 mg ASSESSMENT AND PLAN: Acute on Chronic Hypoxic Respiratory Failure Pneumonia Interstitial Lung Disease HTN DM BPH - continue antibiotics - can taper medrol - inhaled bronchodilators - O2 to keep Spo2 >90% - PO as tolerated - DVT prophylaxis - when ready for discharge, check ambulatory SpO2 on room air to assess for home O2 - can monitor on floor
--- NOTE | 2017-09-10 10:43 | PN ---
Physical Exam: SUBJECTIVE: Patient seen and examined in ICU. States his breathing is better. Tolerating NC well, 93%. OBJECTIVE: Vital Signs Period Temp Pulse Resp BP Sys/Paul Pulse Ox Last 24 Hr 97.9 F-98.6 F 69-103 18-31 132-153/59-82 95-98 PE Neuro: alert, awake, cn 2-12intact Pulm: basilar rales, course, mild wheeze, +nc CV: s1 s2 tachycardia Abd: s nt nd + bs Ext: warm no le edema Laboratory Results - last 24 hr 09/07/17 09/08/17 09/09/17 21:40 21:33 06:26 WBC RBC Hgb Hct MCV MCH MCHC RDW Plt Count MPV Absolute Neuts (auto) Neutrophils % Lymphocytes % Monocytes % Eosinophils % Basophils % Nucleated RBC % Sodium Potassium Chloride Carbon Dioxide Anion Gap BUN Creatinine Creat Clearance w eGFR POC Glucometer 215.15461 219.93799 Random Glucose Calcium Phosphorus Magnesium Total Bilirubin AST ALT Alkaline Phosphatase Total Protein Albumin TB Test (QFT) Negative 09/09/17 09/10/17 09/10/17 12:25 05:30 05:30 WBC 7.1 RBC 3.99 L Hgb 12.4 Hct 35.9 MCV 90.0 MCH 31.0 MCHC 34.4 RDW 15.8 Plt Count 175 MPV 8.8 Absolute Neuts (auto) 6.5 Neutrophils % 90.7 H Lymphocytes % 6.7 L Monocytes % 2.5 L Eosinophils % 0.0 Basophils % 0.1 Nucleated RBC % 0 Sodium 138 Potassium 4.2 Chloride 108 H Carbon Dioxide 26 Anion Gap 4 L BUN 29 H Creatinine 0.8 Creat Clearance w eGFR > 60 POC Glucometer 216.26654 Random Glucose 199 H Calcium 8.7 Phosphorus 3.1 Magnesium 1.9 Total Bilirubin 0.4 AST 23 D ALT 71 Alkaline Phosphatase 74 Total Protein 6.2 L Albumin 2.4 L TB Test (QFT) Active Medications Generic Name Dose Route Start Last Admin Trade Name Freq PRN Reason Stop Dose Admin Acetaminophen 650 mg 09/07/17 21:55 09/08/17 21:22 Tylenol - PO 650 mg Q6H PRN Administration FEVER Albuterol Sulfate 1 amp 09/07/17 21:55 09/08/17 03:13 Ventolin 0.042trength) - NEB 1 amp Q6H PRN Administration SHORT OF BREATH/WHEEZING Albuterol/Ipratropium 1 amp 09/08/17 08:00 09/10/17 08:14 Duoneb - NEB 1 amp RQID VANITA Administration Ascorbic Acid 1,500 mg 09/09/17 12:00 09/10/17 05:53 Vitamin C - PO 1,500 mg Q6HPO VANITA Administration Chlorhexidine Gluconate 1 applic 09/07/17 22:00 09/09/17 21:32 Hibiclens For Decolonization - TP 1 applic HS VANITA Administration Heparin Sodium (Porcine) 5,000 unit 09/07/17 22:00 09/10/17 05:53 Heparin - SQ 5,000 unit TID VANITA Administration Levofloxacin 750 mg in 150 mls @ 150 mls/hr 09/08/17 10:00 09/10/17 09:04 Levaquin 750 Mg Premixed Ivpb - IVPB 150 mls/hr DAILY VANITA Administration Protocol Insulin Aspart 1 vial 09/07/17 22:00 09/10/17 06:06 Novolog Vial Sliding Scale - SQ 4 units ACHS VANITA Administration Protocol Methylprednisolone Sodium Succinate 40 mg 09/10/17 18:00 Solu-Medrol - IVPUSH Q8H-IV VANITA Metoprolol Succinate 100 mg 09/09/17 10:00 09/10/17 09:04 Toprol Xl - PO 100 mg DAILY VANITA Administration Mupirocin 1 applic 09/07/17 22:00 09/10/17 09:04 Bactroban Ointment (For Decolonization) - NS 09/12/17 21:59 1 applic BID VANITA Administration Tamsulosin HCl 0.4 mg 09/09/17 08:30 09/10/17 08:51 Flomax - PO 0.4 mg DAILY@0830 VANITA Administration Imaging: - CTAP/Chest CT: emphysematous changes and interstitial lung disease. Honeycombing. mosaic attenuation, bronchiectasis noted. infiltrate vs mass is present on RADHA. Spleen: enlarged spleen. Assessment: 66 year old male with pmhx HTN, DM II, Gout, dormant lupus, diabetes , recent shingles (05/2017), interstitial lung disease, and BPH admitted with fever, chills, low back pain/tenderness, sob. Plan: 1. Sepsis d/t RADHA pna - Levaquin 750mg daily - Taper steroids 40mg q8hr 2. Acute hypoxic resp failure - Continue supplemental 02, goal to wean, however will likely require home o2 - On steroids 3. Interstitial lung disease - Will need PFTs and repeat imaging as outpt, close follow up 4. Recent Shingles - Treated 05/2017 5. HTN/Tachycardia - Toprol xl 100mg daily 6. DM II - ISS, BGM, ACHS - Hold po antidiabetics 7. BURKE Resolved 8. SLE - Dormant, ILD?, previously worked up and dx was ruled out, no treatment for lupus - CHERRY, anti-Sm/[employer] pending 9. Thrombocytopenia - Resolved Visit type - Emergency Visit Emergency Visit: Yes ED Registration Date: 09/07/17 Care time: The patient presented to the Emergency Department on the above date and was hospitalized for further evaluation of their emergent condition. - New Patient This patient is new to me today: No - Critical Care Critical Care patient: No
--- NOTE | 2017-09-10 11:07 | PN ---
Physical Exam: SUBJECTIVE: Patient seen and examined at bedside. No acute events overnight. Feels better. No complaints offered. Breathing improving. OBJECTIVE: Vital Signs Temperature 98.2 F 09/10/17 10:00 Pulse Rate 92 H 09/10/17 10:00 Respiratory Rate 29 H 09/10/17 10:00 Blood Pressure 135/70 09/10/17 10:00 O2 Sat by Pulse Oximetry (%) 95 09/10/17 09:00 GENERAL: The patient is awake, alert, and fully oriented, in no acute distress. EYES: extraocular movements intact ENT: Ears normal, nares patent LUNGS: B/l rales and rhonchi HEART: Regular rate and rhythm, S1, S2 ABDOMEN: Soft, nontender, nondistended, normoactive bowel sounds EXTREMITIES: warm, well-perfused NEUROLOGICAL: Cranial nerves II through XII grossly intact. Normal speech, gait not observed. PSYCH: Normal mood, normal affect. SKIN: Warm, dry Laboratory Results - last 24 hr 09/07/17 09/08/17 09/09/17 21:40 21:33 06:26 WBC RBC Hgb Hct MCV MCH MCHC RDW Plt Count MPV Absolute Neuts (auto) Neutrophils % Lymphocytes % Monocytes % Eosinophils % Basophils % Nucleated RBC % Sodium Potassium Chloride Carbon Dioxide Anion Gap BUN Creatinine Creat Clearance w eGFR POC Glucometer 215.52931 219.14212 Random Glucose Calcium Phosphorus Magnesium Total Bilirubin AST ALT Alkaline Phosphatase Total Protein Albumin TB Test (QFT) Negative 09/09/17 09/10/17 09/10/17 12:25 05:30 05:30 WBC 7.1 RBC 3.99 L Hgb 12.4 Hct 35.9 MCV 90.0 MCH 31.0 MCHC 34.4 RDW 15.8 Plt Count 175 MPV 8.8 Absolute Neuts (auto) 6.5 Neutrophils % 90.7 H Lymphocytes % 6.7 L Monocytes % 2.5 L Eosinophils % 0.0 Basophils % 0.1 Nucleated RBC % 0 Sodium 138 Potassium 4.2 Chloride 108 H Carbon Dioxide 26 Anion Gap 4 L BUN 29 H Creatinine 0.8 Creat Clearance w eGFR > 60 POC Glucometer 216.54020 Random Glucose 199 H Calcium 8.7 Phosphorus 3.1 Magnesium 1.9 Total Bilirubin 0.4 AST 23 D ALT 71 Alkaline Phosphatase 74 Total Protein 6.2 L Albumin 2.4 L TB Test (QFT) Active Medications Generic Name Dose Route Start Last Admin Trade Name Isaias PRN Reason Stop Dose Admin Acetaminophen 650 mg 09/07/17 21:55 09/08/17 21:22 Tylenol - PO 650 mg Q6H PRN Administration FEVER Albuterol Sulfate 1 amp 09/07/17 21:55 09/08/17 03:13 Ventolin 0.042trength) - NEB 1 amp Q6H PRN Administration SHORT OF BREATH/WHEEZING Albuterol/Ipratropium 1 amp 09/08/17 08:00 09/10/17 08:14 Duoneb - NEB 1 amp RQID [facility]ANITA Administration Ascorbic Acid 1,500 mg 09/09/17 12:00 09/10/17 05:53 Vitamin C - PO 1,500 mg Q6HPO [facility]ANITA Administration Chlorhexidine Gluconate 1 applic 09/07/17 22:00 09/09/17 21:32 Hibiclens For Decolonization - TP 1 applic HS [facility]ANITA Administration Heparin Sodium (Porcine) 5,000 unit 09/07/17 22:00 09/10/17 05:53 Heparin - SQ 5,000 unit TID [facility]ANITA Administration Levofloxacin 750 mg in 150 mls @ 150 mls/hr 09/08/17 10:00 09/10/17 09:04 Levaquin 750 Mg Premixed Ivpb - IVPB 150 mls/hr DAILY [facility] Administration Protocol Insulin Aspart 1 vial 09/07/17 22:00 09/10/17 06:06 Novolog Vial Sliding Scale - SQ 4 units ACHS [facility]ANITA Administration Protocol Methylprednisolone Sodium Succinate 40 mg 09/10/17 18:00 Solu-Medrol - IVPUSH Q8H-IV [facility]ANITA Metoprolol Succinate 100 mg 09/09/17 10:00 09/10/17 09:04 Toprol Xl - PO 100 mg DAILY [facility] Administration Mupirocin 1 applic 09/07/17 22:00 09/10/17 09:04 Bactroban Ointment (For Decolonization) - NS 09/12/17 21:59 1 applic BID [facility]ANITA Administration Tamsulosin HCl 0.4 mg 09/09/17 08:30 09/10/17 08:51 Flomax - PO 0.4 mg DAILY@0830 [facility] Administration ASSESSMENT/PLAN: 66 y/o M w/PMH of hypertension, diabetes, gout, dormant lupus, diabetes, recent shingles (05/2017), interstitial lung disease and an enlarged prostate admitted to the ICU with pneumonia, extensive interstitial lung disease, and impending respiratory failure, which is improving. Off high-flow NC oxygenation now. Neuro -AAOx3 Cardio -HTN Toprol XL 100 mg qd Respiratory -SOB secondary to Interstitial lung disease vs PNA -Duonebs QID, Albuterol Nebs PRN Q6 -Saturating in 90s on 3L NC. Off high-flow -Will need pre and post checked before discharge to assess for need for supp oxygen at home Endocrine -DM -ISS, BGMs ID -Acute CAP vs cryptogenic pneumonia Levaquin 750 mg IVPB Daily -recent hx of shingles (May) -finished course of acyclovir -ID on board DVT PPX -Heparin 5000 Units SQ TID FEN -Fluids: None -Electrolytes: Monitor electrolytes -Nutrition: Diabetic/Sodium controlled diet -Dispo: Transfer to m/s Visit type - Emergency Visit Emergency Visit: Yes ED Registration Date: 09/07/17 Care time: The patient presented to the Emergency Department on the above date and was hospitalized for further evaluation of their emergent condition. - New Patient This patient is new to me today: No - Critical Care Critical Care patient: Yes Total Critical Care Time (in minutes): 45 Critical Care Statement: The care of this patient involved high complexity decision making to prevent further life threatening deterioration of the patient 's condition and/or to evaluate & treat vital organ system(s) failure or risk of failure.
--- NOTE | 2017-09-10 12:47 | PN ---
Progress Note, Physician History of Present Illness: No events overnight Up in chair No complaints Rare Tele: Rare PVC - Current Medication List Current Medications: Active Medications Acetaminophen (Tylenol -) 650 mg PO Q6H PRN PRN Reason: FEVER Last Admin: 09/08/17 21:22 Dose: 650 mg Albuterol Sulfate (Ventolin 0.042trength) -) 1 amp NEB Q6H PRN PRN Reason: SHORT OF BREATH/WHEEZING Last Admin: 09/08/17 03:13 Dose: 1 amp Albuterol/Ipratropium (Duoneb -) 1 amp NEB RQID VANITA Last Admin: 09/10/17 11:49 Dose: 1 amp Ascorbic Acid (Vitamin C -) 1,500 mg PO Q6HPO VANITA Last Admin: 09/10/17 11:59 Dose: 1,500 mg Chlorhexidine Gluconate (Hibiclens For Decolonization -) 1 applic TP HS COUNT INCLUDES [facility] Last Admin: 09/09/17 21:32 Dose: 1 applic Heparin Sodium (Porcine) (Heparin -) 5,000 unit SQ TID VANITA Last Admin: 09/10/17 05:53 Dose: 5,000 unit Levofloxacin (Levaquin 750 Mg Premixed Ivpb -) 750 mg in 150 mls @ 150 mls/hr IVPB DAILY [facility]CLUDES [facility]; Protocol Last Admin: 09/10/17 09:04 Dose: 150 mls/hr Insulin Aspart (Novolog Vial Sliding Scale -) 1 vial SQ ACHS COUNT INCLUDES [facility]; Protocol Last Admin: 09/10/17 12:13 Dose: 6 units Methylprednisolone Sodium Succinate (Solu-Medrol -) 40 mg IVPUSH Q8H-IV VANITA Metoprolol Succinate (Toprol Xl -) 100 mg PO DAILY COUNT INCLUDES [facility] Last Admin: 09/10/17 09:04 Dose: 100 mg Mupirocin (Bactroban Ointment (For Decolonization) -) 1 applic NS BID VANITA Stop: 09/12/17 21:59 Last Admin: 09/10/17 09:04 Dose: 1 applic Tamsulosin HCl (Flomax -) 0.4 mg PO DAILY@0830 [facility] Last Admin: 09/10/17 08:51 Dose: 0.4 mg - Objective Vital Signs: Vital Signs Temperature 98.2 F 09/10/17 10:00 Pulse Rate 92 H 09/10/17 12:00 Respiratory Rate 30 H 09/10/17 12:00 Blood Pressure 144/69 09/10/17 12:00 O2 Sat by Pulse Oximetry (%) 95 09/10/17 09:00 Constitutional: Yes: No Distress, Calm Eyes: Yes: WNL HENT: Yes: WNL Neck: Yes: WNL Cardiovascular: Yes: Regular Rate and Rhythm Respiratory: Yes: WNL, CTA Bilaterally Gastrointestinal: Yes: Normal Bowel Sounds Musculoskeletal: Yes: WNL Extremities: Yes: WNL Edema: No Labs: CBC, BMP 09/10/17 05:30 09/10/17 05:30 INR, PTT INR 1.27 (0.82-1.09) H 09/06/17 16:15 Assessment/Plan 66M HTN, DM II, dormant lupus, interstitial lung disease admitted for sepsis, PNA with PVCs, tachycardia PVCs - improved - echo pending - cont bb - replete K if <4.0, Mg if <2.0 Tachycardia - likely in setting of sepsis - Now restarted Metoprolol Succ 100mg daily sepsis/PNA/advanced interstitial lung disease - on antibiotics per ICU team, IV steroids, high flow O2 HTN -cont home bb
--- NOTE | 2017-09-10 18:29 | PN ---
Progress Note, Physician History of Present Illness: Pt seen and examined. Records/imaging/lab results noted. Pt is alert without c/ o shortness of breath/cough/fever/chills. Saturating well on O2 NC. States he feels better. - Current Medication List Current Medications: Active Medications Acetaminophen (Tylenol -) 650 mg PO Q6H PRN PRN Reason: FEVER Last Admin: 09/08/17 21:22 Dose: 650 mg Albuterol Sulfate (Ventolin 0.042trength) -) 1 amp NEB Q6H PRN PRN Reason: SHORT OF BREATH/WHEEZING Last Admin: 09/08/17 03:13 Dose: 1 amp Albuterol/Ipratropium (Duoneb -) 1 amp NEB RQID [facility]ITA Last Admin: 09/10/17 15:57 Dose: 1 amp Ascorbic Acid (Vitamin C -) 1,500 mg PO Q6HPO [facility] Last Admin: 09/10/17 17:27 Dose: 1,500 mg Chlorhexidine Gluconate (Hibiclens For Decolonization -) 1 applic TP HS [facility]ITA Last Admin: 09/09/17 21:32 Dose: 1 applic Heparin Sodium (Porcine) (Heparin -) 5,000 unit SQ TID [facility] Last Admin: 09/10/17 14:49 Dose: 5,000 unit Levofloxacin (Levaquin 750 Mg Premixed Ivpb -) 750 mg in 150 mls @ 150 mls/hr IVPB DAILY [facility]; Protocol Last Admin: 09/10/17 09:04 Dose: 150 mls/hr Insulin Aspart (Novolog Vial Sliding Scale -) 1 vial SQ ACHS [facility]; Protocol Last Admin: 09/10/17 17:11 Dose: 6 units Methylprednisolone Sodium Succinate (Solu-Medrol -) 40 mg IVPUSH Q8H-IV [facility]ANITA Last Admin: 09/10/17 17:27 Dose: 40 mg Metoprolol Succinate (Toprol Xl -) 100 mg PO DAILY [facility] Last Admin: 09/10/17 09:04 Dose: 100 mg Mupirocin (Bactroban Ointment (For Decolonization) -) 1 applic NS BID [facility]ITA Stop: 09/12/17 21:59 Last Admin: 09/10/17 09:04 Dose: 1 applic Tamsulosin HCl (Flomax -) 0.4 mg PO DAILY@0830 [facility] Last Admin: 09/10/17 08:51 Dose: 0.4 mg - Objective Vital Signs: Vital Signs Temperature 98.0 F 09/10/17 18:00 Pulse Rate 84 09/10/17 18:00 Respiratory Rate 27 H 09/10/17 18:00 Blood Pressure 125/63 09/10/17 18:00 O2 Sat by Pulse Oximetry (%) 97 09/10/17 15:56 Constitutional: Yes: No Distress, Calm Cardiovascular: Yes: Tachycardia Respiratory: Yes: Rales (basilar) Gastrointestinal: Yes: Normal Bowel Sounds, Soft Genitourinary: Yes: WNL Musculoskeletal: Yes: WNL Extremities: Yes: WNL Integumentary: Yes: WNL Neurological: Yes: Alert, Oriented Labs: CBC, BMP 09/10/17 05:30 09/10/17 05:30 INR, PTT INR 1.27 (0.82-1.09) H 09/06/17 16:15 Microbiology 09/06/17 16:15 Blood - Peripheral Venous Blood Culture - Preliminary NO GROWTH OBTAINED AFTER 96 HOURS, INCUBATION TO CONTINUE FOR 1 DAYS. 09/06/17 16:15 Blood - Peripheral Venous Blood Culture - Preliminary NO GROWTH OBTAINED AFTER 96 HOURS, INCUBATION TO CONTINUE FOR 1 DAYS. 09/08/17 19:35 Sputum - Expectorated Gram Stain - Final 09/08/17 19:35 Sputum - Expectorated Sputum Culture - Preliminary NORMAL RESPIRATORY KARLA 09/08/17 18:45 Urine For Antigen Detection Legionella Antigen - Final 09/08/17 18:45 Urine For Antigen Detection Streptococcus pneumoniae Antigen (M - Final 09/07/17 02:10 Urine - Urine Clean Catch Urine Culture - Final NO GROWTH OBTAINED - ....Imaging Cat Scan: Report Reviewed Problem List - Problems (1) Acute respiratory failure with hypoxia Code(s): J96.01 - ACUTE RESPIRATORY FAILURE WITH HYPOXIA (2) Pneumonia Code(s): J18.9 - PNEUMONIA, UNSPECIFIED ORGANISM (3) SLE (systemic lupus erythematosus) Code(s): M32.9 - SYSTEMIC LUPUS ERYTHEMATOSUS, UNSPECIFIED (4) Shingles Code(s): B02.9 - ZOSTER WITHOUT COMPLICATIONS Qualifiers: Herpes zoster complications: without complications Qualified Code(s): B02.9 - Zoster without complications Assessment/Plan 66 y.o. male with PMH of SLE, recent shingles presenting with hypoxia with pulmonary infiltrate Acute Respiratory failure PNA s/p Herpes zoster ILD SLE - all lab/microbiology reports reviewed - continue antibiotics for 2 more days - pt tolerating NC - continue monitor vitals cc time 40m
[2017-09-10] MEDS: CHLORHEXIDINE GLUCONATE 4% CLEANSER FOR DECOLONIZATION TP SCH (21:17)
[2017-09-11] MEDS: ASCORBIC ACID 500 MG TABLET (FP) PO SCH ×4 (00:09→17:20)
[2017-09-11] MEDS: methylPREDNISolone NA SUCC 40 MG/1 ML VIAL IVPUSH SCH ×3 (01:51→21:06)
[2017-09-11] MEDS: HEPARIN NA (PORCINE) 5,000 UNITS/ML 1ML VIAL SQ SCH ×3 (05:07→21:06)
[2017-09-11 06:01] LABS: BASO % 0.4 % (0-2.0); EOS % 0.2 % (0-4.5); HEMATOCRIT 37.6 % (35.4-49); HEMOGLOBIN 12.8 GM/dL (11.7-16.9); LYMPH % 9.8 % (8-40); MCH 30.8 pg (25.7-33.7); MCHC 34.1 g/dl (32.0-35.9); MEAN CELL VOLUME 90.3 fl (80-96); MEAN PLT VOLUME 8.9 fl (7.5-11.1); MONO % 6.3 % (3.8-10.2); NEUT % 83.3 % (42.8-82.8); PLATELET COUNT 174 K/MM3 (134-434); RBC 4.16 M/mm3 (4.00-5.60); WHITE BLOOD COUNT 7.2 K/mm3 (4.0-10.0)
[2017-09-11 06:24] LABS: ALBUMIN 2.5 g/dl (3.4-5.0); ALK PHOS 69 U/L (45-117); ANION GAP 8 (8-16); BILIRUBIN,TOTAL 0.5 mg/dL (0.2-1.0); BLOOD UREA NITROGEN 32 mg/dL (7-18); CALCIUM 8.9 mg/dL (8.5-10.1); CHLORIDE 103 mmol/L (98-107); CO2 27 mmol/L (21-32); CREATININE 0.9 mg/dL (0.7-1.3); GLUCOSE,RANDOM 181 mg/dL (74-106); MAGNESIUM 1.8 mg/dL (1.8-2.4); PHOSPHOROUS 3.2 mg/dL (2.5-4.9); POTASSIUM 4.3 mmol/L (3.5-5.1); SGOT/AST 16 U/L (15-37); SGPT/ALT 59 U/L (12-78); SODIUM 138 mmol/L (136-145); TOT PROT 6.1 g/dl (6.4-8.2)
[2017-09-11] MEDS: INSULIN SLIDING SCALE (NOVOLOG) 1 VIAL SQ SCH ×4 (06:26→21:15)
[2017-09-11] MEDS: ALBUTEROL SO4 2.5/IPRATROPIUM 0.5 INH SOL 3 ML VIAL.NEB. NEB SCH ×4 (07:57→21:54)
[2017-09-11] MEDS: TAMSULOSIN HCL 0.4 MG CAP.ER.24H (FP) PO SCH (08:21)
--- NOTE | 2017-09-11 08:22 | PN ---
Physical Exam: SUBJECTIVE: No acute events overnight. Pt being weaned on O2 supplementation now tolerating NC. No complaints today OBJECTIVE: Vital Signs Period Temp Pulse Resp BP Sys/Paul Pulse Ox Last 24 Hr 97.6 F-98.4 F 65-92 20-31 125-148/63-78 95-98 GENERAL: NAD, awake, alert, and fully oriented HEENT: NC/AT, EOMI, MERCEDES, MMM LUNGS: Improved lung aeration with inspiratory squeaking still noted. On 3LNC currently w/o respiratory distress HEART: RRR, S1, S2 normal without murmurs ABDOMEN: Soft, NT/ND, normoactive BS, no guarding no masses EXTREMITIES: 2+ DP pulses, no edema, well-perfused PSYCH: Normal mood, normal affect. SKIN: Warm, dry, no rashes or lesions Laboratory Results - last 24 hr 09/10/17 09/10/17 09/11/17 12:11 21:12 05:30 WBC 7.2 RBC 4.16 Hgb 12.8 Hct 37.6 MCV 90.3 MCH 30.8 MCHC 34.1 RDW 16.0 H Plt Count 174 MPV 8.9 Absolute Neuts (auto) 6.0 Neutrophils % 83.3 H Lymphocytes % 9.8 D Monocytes % 6.3 D Eosinophils % 0.2 D Basophils % 0.4 D Nucleated RBC % 0 Sodium Potassium Chloride Carbon Dioxide Anion Gap BUN Creatinine Creat Clearance w eGFR POC Glucometer [phone] Random Glucose Calcium Phosphorus Magnesium Total Bilirubin AST ALT Alkaline Phosphatase Total Protein Albumin 09/11/17 05:30 WBC RBC Hgb Hct MCV MCH MCHC RDW Plt Count MPV Absolute Neuts (auto) Neutrophils % Lymphocytes % Monocytes % Eosinophils % Basophils % Nucleated RBC % Sodium 138 Potassium 4.3 Chloride 103 Carbon Dioxide 27 Anion Gap 8 BUN 32 H Creatinine 0.9 Creat Clearance w eGFR > 60 POC Glucometer Random Glucose 181 H Calcium 8.9 Phosphorus 3.2 Magnesium 1.8 Total Bilirubin 0.5 AST 16 D ALT 59 Alkaline Phosphatase 69 Total Protein 6.1 L Albumin 2.5 L Active Medications Generic Name Dose Route Start Last Admin Trade Name Freq PRN Reason Stop Dose Admin Acetaminophen 650 mg 09/07/17 21:55 09/08/17 21:22 Tylenol - PO 650 mg Q6H PRN Administration FEVER Albuterol Sulfate 1 amp 09/07/17 21:55 09/08/17 03:13 Ventolin 0.042trength) - NEB 1 amp Q6H PRN Administration SHORT OF BREATH/WHEEZING Albuterol/Ipratropium 1 amp 09/08/17 08:00 09/11/17 07:57 Duoneb - NEB 1 amp RQID VANITA Administration Ascorbic Acid 1,500 mg 09/09/17 12:00 09/11/17 05:07 Vitamin C - PO 1,500 mg Q6HPO VANITA Administration Chlorhexidine Gluconate 1 applic 09/07/17 22:00 09/10/17 21:17 Hibiclens For Decolonization - TP 1 applic HS VANITA Administration Heparin Sodium (Porcine) 5,000 unit 09/07/17 22:00 09/11/17 05:07 Heparin - SQ 5,000 unit TID VANITA Administration Levofloxacin 750 mg in 150 mls @ 150 mls/hr 09/08/17 10:00 09/10/17 09:04 Levaquin 750 Mg Premixed Ivpb - IVPB 150 mls/hr DAILY [facility]ANITA Administration Protocol Insulin Aspart 1 vial 09/07/17 22:00 09/11/17 06:26 Novolog Vial Sliding Scale - SQ 2 units ACHS VANITA Administration Protocol Methylprednisolone Sodium Succinate 40 mg 09/10/17 18:00 09/11/17 01:51 Solu-Medrol - IVPUSH 40 mg Q8H-IV VANITA Administration Metoprolol Succinate 100 mg 09/09/17 10:00 09/10/17 09:04 Toprol Xl - PO 100 mg DAILY VANITA Administration Mupirocin 1 applic 09/07/17 22:00 09/10/17 21:17 Bactroban Ointment (For Decolonization) - NS 09/12/17 21:59 1 applic BID VANITA Administration Tamsulosin HCl 0.4 mg 09/09/17 08:30 09/11/17 08:21 Flomax - PO 0.4 mg DAILY@0830 VANITA Administration ASSESSMENT/PLAN: Neuro: Neurologically intact Respiratory: Interstitial lung disease with superimposed pneumonitis --Now tolerating NC3L; continue to wean --Maintain SpO2 88-95% --Duonebs QID scheduled with Albuterol PRN q6h --Will need pre- and post-ambulatory for O2 requirements --Decreased to medrol 40mg q12h IV --Continue LEvaquin 750mg IVPB --ID on board --CXR on board Cardiac: HTN --Toprol XL 100mg qdaily on board --Normotensive today Endocrine: DM --ISS on board --BGM ACHS FEN: Fluids: None indicated Electrolyte abnormalities: None Nutrition: Diabetic/Sodium controlled diet PPX: DVT - Heparin SQ TID Dispo: Transfer to / Case discussed with Dr. Kan Shankar, DO - IM PGY-2 Visit type - Emergency Visit Emergency Visit: No - New Patient This patient is new to me today: No - Critical Care Critical Care patient: Yes Total Critical Care Time (in minutes): 35 Critical Care Statement: The care of this patient involved high complexity decision making to prevent further life threatening deterioration of the patient 's condition and/or to evaluate & treat vital organ system(s) failure or risk of failure.
[2017-09-11 08:51] LABS: PLATELET ESTIMATE ADEQUATE
--- NOTE | 2017-09-11 09:37 | PN ---
Physical Exam: SUBJECTIVE: Patient seen and examined in ICU. Pt states he is feeling much better than yesterday. Tolerating NC. OBJECTIVE: Vital Signs Period Temp Pulse Resp BP Sys/Paul Pulse Ox Last 24 Hr 97.6 F-98.4 F 65-92 20-31 125-148/63-78 95-98 PE Neuro: alert, awake, cn 2-12intact Pulm: mild rales, clear otherwise, no cough, +nc CV: s1 s2 rrr no mrg Abd: s nt nd + bs Ext: warm no le edema Laboratory Results - last 24 hr 09/10/17 09/10/17 09/11/17 12:11 21:12 05:30 WBC 7.2 RBC 4.16 Hgb 12.8 Hct 37.6 MCV 90.3 MCH 30.8 MCHC 34.1 RDW 16.0 H Plt Count 174 MPV 8.9 Absolute Neuts (auto) 6.0 Total Counted 100 Neutrophils % 83.3 H Neutrophils % (Manual) 84.0 H Band Neutrophils % 2.0 Lymphocytes % 9.8 D Lymphocytes % (Manual) 7.0 L D Monocytes % 6.3 D Monocytes % (Manual) 7 D Eosinophils % 0.2 D Basophils % 0.4 D Nucleated RBC % 0 Platelet Estimate Adequate Platelet Comment No clumping noted Sodium Potassium Chloride Carbon Dioxide Anion Gap BUN Creatinine Creat Clearance w eGFR POC Glucometer [phone] Random Glucose Calcium Phosphorus Magnesium Total Bilirubin AST ALT Alkaline Phosphatase Total Protein Albumin 09/11/17 05:30 WBC RBC Hgb Hct MCV MCH MCHC RDW Plt Count MPV Absolute Neuts (auto) Total Counted Neutrophils % Neutrophils % (Manual) Band Neutrophils % Lymphocytes % Lymphocytes % (Manual) Monocytes % Monocytes % (Manual) Eosinophils % Basophils % Nucleated RBC % Platelet Estimate Platelet Comment Sodium 138 Potassium 4.3 Chloride 103 Carbon Dioxide 27 Anion Gap 8 BUN 32 H Creatinine 0.9 Creat Clearance w eGFR > 60 POC Glucometer Random Glucose 181 H Calcium 8.9 Phosphorus 3.2 Magnesium 1.8 Total Bilirubin 0.5 AST 16 D ALT 59 Alkaline Phosphatase 69 Total Protein 6.1 L Albumin 2.5 L Active Medications Generic Name Dose Route Start Last Admin Trade Name Freq PRN Reason Stop Dose Admin Acetaminophen 650 mg 09/07/17 21:55 09/08/17 21:22 Tylenol - PO 650 mg Q6H PRN Administration FEVER Albuterol Sulfate 1 amp 09/07/17 21:55 09/08/17 03:13 Ventolin 0.042trength) - NEB 1 amp Q6H PRN Administration SHORT OF BREATH/WHEEZING Albuterol/Ipratropium 1 amp 09/08/17 08:00 09/11/17 07:57 Duoneb - NEB 1 amp RQID VANITA Administration Ascorbic Acid 1,500 mg 09/09/17 12:00 09/11/17 05:07 Vitamin C - PO 1,500 mg Q6HPO VANITA Administration Chlorhexidine Gluconate 1 applic 09/07/17 22:00 09/10/17 21:17 Hibiclens For Decolonization - TP 1 applic HS VANITA Administration Heparin Sodium (Porcine) 5,000 unit 09/07/17 22:00 09/11/17 05:07 Heparin - SQ 5,000 unit TID VANITA Administration Levofloxacin 750 mg in 150 mls @ 150 mls/hr 09/08/17 10:00 09/10/17 09:04 Levaquin 750 Mg Premixed Ivpb - IVPB 150 mls/hr DAILY [facility]ANITA Administration Protocol Insulin Aspart 1 vial 09/07/17 22:00 09/11/17 06:26 Novolog Vial Sliding Scale - SQ 2 units ACHS VANITA Administration Protocol Methylprednisolone Sodium Succinate 40 mg 09/11/17 09:45 Solu-Medrol - IVPUSH Q12H VANITA Metoprolol Succinate 100 mg 09/09/17 10:00 09/10/17 09:04 Toprol Xl - PO 100 mg DAILY VANITA Administration Mupirocin 1 applic 09/07/17 22:00 09/10/17 21:17 Bactroban Ointment (For Decolonization) - NS 09/12/17 21:59 1 applic BID VANITA Administration Tamsulosin HCl 0.4 mg 09/09/17 08:30 09/11/17 08:21 Flomax - PO 0.4 mg DAILY@0830 VANITA Administration Imaging: - CTAP/Chest CT: emphysematous changes and interstitial lung disease. Honeycombing. mosaic attenuation, bronchiectasis noted. infiltrate vs mass is present on RADHA. Spleen: enlarged spleen. Assessment: 66 year old male with pmhx HTN, DM II, Gout, dormant lupus, diabetes , recent shingles (05/2017), interstitial lung disease, and BPH admitted with fever, chills, low back pain/tenderness, sob. Plan: 1. Sepsis d/t RADHA pna - Levaquin 750mg daily for 1 more day, stop tomorrow - Taper steroids 40mg q12 today 2. Acute hypoxic resp failure - Continue supplemental 02, will need pre post prior to dc - Tapering steroids as above 3. Interstitial lung disease - Will need PFTs and repeat imaging as outpt, close follow up 4. Recent Shingles - Treated 05/2017 5. HTN/Tachycardia - Improved - Toprol xl 100mg daily 6. DM II - ISS, BGM, ACHS - Hold po antidiabetics 7. BURKE Resolved 8. SLE - Dormant, ILD?, previously worked up and dx was ruled out, no treatment for lupus - CHERRY, anti-Sm/[employer] pending 9. Thrombocytopenia - Resolved Visit type - Emergency Visit Emergency Visit: Yes ED Registration Date: 09/07/17 Care time: The patient presented to the Emergency Department on the above date and was hospitalized for further evaluation of their emergent condition. - New Patient This patient is new to me today: No - Critical Care Critical Care patient: No
[2017-09-11] MEDS ORDERED: methylPREDNISolone NA SUCC 40 MG/1 ML VIAL IVPUSH SCH ×2 (09:45→09:47)
--- NOTE | 2017-09-11 09:45 | PN ---
Teaching Attending Note Name of Resident: Roberto Shankar ATTENDING PHYSICIAN STATEMENT I saw and evaluated the patient. I reviewed the resident's note and discussed the case with the resident. I agree with the resident's findings and plan as documented. SUBJECTIVE: Pt seen and examined in the ICU. Breathing continues to improve. Saturating well on nasal cannula. Minimal cough and wheezing. OBJECTIVE: Vital Signs Period Temp Pulse Resp BP Sys/Paul Pulse Ox Last 24 Hr 97.6 F-98.4 F 65-92 20-31 125-148/63-78 95-98 Intake & Output 09/08/17 09/09/17 09/10/17 09/11/17 23:59 23:59 23:59 23:59 Intake Total 240 630 790 240 Output Total 2250 2200 1000 1050 Balance -2009 -1570 -210 -810 Weight 87.5 kg 78.471 kg 78.789 kg 76.566 kg Gen: NAD at rest Heart: RRR Lung: basilar rales Abd: soft, nontender Ext: no edema CBC, BMP 09/11/17 05:30 09/11/17 05:30 Active Medications Acetaminophen (Tylenol -) 650 mg PO Q6H PRN PRN Reason: FEVER Last Admin: 09/08/17 21:22 Dose: 650 mg Albuterol Sulfate (Ventolin 0.042trength) -) 1 amp NEB Q6H PRN PRN Reason: SHORT OF BREATH/WHEEZING Last Admin: 09/08/17 03:13 Dose: 1 amp Albuterol/Ipratropium (Duoneb -) 1 amp NEB RQID [facility] Last Admin: 09/11/17 07:57 Dose: 1 amp Ascorbic Acid (Vitamin C -) 1,500 mg PO Q6HPO [facility]ANITA Last Admin: 09/11/17 05:07 Dose: 1,500 mg Chlorhexidine Gluconate (Hibiclens For Decolonization -) 1 applic TP HS [facility] Last Admin: 09/10/17 21:17 Dose: 1 applic Heparin Sodium (Porcine) (Heparin -) 5,000 unit SQ TID [facility] Last Admin: 09/11/17 05:07 Dose: 5,000 unit Levofloxacin (Levaquin 750 Mg Premixed Ivpb -) 750 mg in 150 mls @ 150 mls/hr IVPB DAILY [facility]; Protocol Last Admin: 09/11/17 09:41 Dose: 150 mls/hr Insulin Aspart (Novolog Vial Sliding Scale -) 1 vial SQ ACHS [facility]; Protocol Last Admin: 09/11/17 06:26 Dose: 2 units Methylprednisolone Sodium Succinate (Solu-Medrol -) 40 mg IVPUSH Q12H [facility] Metoprolol Succinate (Toprol Xl -) 100 mg PO DAILY [facility] Last Admin: 09/11/17 09:41 Dose: 100 mg Mupirocin (Bactroban Ointment (For Decolonization) -) 1 applic NS BID [facility] Stop: 09/12/17 21:59 Last Admin: 09/10/17 21:17 Dose: 1 applic Tamsulosin HCl (Flomax -) 0.4 mg PO DAILY@0830 [facility] Last Admin: 09/11/17 08:21 Dose: 0.4 mg ASSESSMENT AND PLAN: Acute on Chronic Hypoxic Respiratory Failure Pneumonia Interstitial Lung Disease HTN DM BPH - continue antibiotics - can taper medrol to q12h - inhaled bronchodilators - O2 to keep Spo2 >90% - PO as tolerated - DVT prophylaxis - when ready for discharge, check ambulatory SpO2 on room air to assess for home O2 - can monitor on floor
[2017-09-11] MEDS: MUPIROCIN 2% TOPICAL OINTMENT FOR DECOLONIZATION NS SCH (10:21)
--- NOTE | 2017-09-11 11:19 | PN ---
Progress Note, Physician History of Present Illness: No events overnight No CV complaints this AM - Current Medication List Current Medications: Active Medications Acetaminophen (Tylenol -) 650 mg PO Q6H PRN PRN Reason: FEVER Last Admin: 09/08/17 21:22 Dose: 650 mg Albuterol Sulfate (Ventolin 0.042trength) -) 1 amp NEB Q6H PRN PRN Reason: SHORT OF BREATH/WHEEZING Last Admin: 09/08/17 03:13 Dose: 1 amp Albuterol/Ipratropium (Duoneb -) 1 amp NEB RQID [facility] Last Admin: 09/11/17 07:57 Dose: 1 amp Ascorbic Acid (Vitamin C -) 1,500 mg PO Q6HPO [facility] Last Admin: 09/11/17 05:07 Dose: 1,500 mg Chlorhexidine Gluconate (Hibiclens For Decolonization -) 1 applic TP HS [facility] Last Admin: 09/10/17 21:17 Dose: 1 applic Heparin Sodium (Porcine) (Heparin -) 5,000 unit SQ TID [facility] Last Admin: 09/11/17 05:07 Dose: 5,000 unit Levofloxacin (Levaquin 750 Mg Premixed Ivpb -) 750 mg in 150 mls @ 150 mls/hr IVPB DAILY [facility]; Protocol Last Admin: 09/11/17 09:41 Dose: 150 mls/hr Insulin Aspart (Novolog Vial Sliding Scale -) 1 vial SQ ACHS [facility]; Protocol Last Admin: 09/11/17 06:26 Dose: 2 units Methylprednisolone Sodium Succinate (Solu-Medrol -) 40 mg IVPUSH BID [facility] Last Admin: 09/11/17 10:00 Dose: Not Given Metoprolol Succinate (Toprol Xl -) 100 mg PO DAILY [facility] Last Admin: 09/11/17 09:41 Dose: 100 mg Mupirocin (Bactroban Ointment (For Decolonization) -) 1 applic NS BID [facility] Stop: 09/12/17 21:59 Last Admin: 09/11/17 10:21 Dose: 1 applic Tamsulosin HCl (Flomax -) 0.4 mg PO DAILY@0830 [facility] Last Admin: 09/11/17 08:21 Dose: 0.4 mg - Objective Vital Signs: Vital Signs Temperature 98.4 F 09/11/17 08:00 Pulse Rate 88 09/11/17 10:00 Respiratory Rate 20 09/11/17 10:00 Blood Pressure 132/73 09/11/17 10:00 O2 Sat by Pulse Oximetry (%) 97 09/11/17 09:00 Constitutional: Yes: No Distress Eyes: Yes: WNL HENT: Yes: WNL Neck: Yes: WNL Cardiovascular: Yes: WNL, Regular Rate and Rhythm Respiratory: Yes: CTA Bilaterally Musculoskeletal: Yes: WNL Extremities: Yes: WNL, Internal Rotation Labs: CBC, BMP 09/11/17 05:30 09/11/17 05:30 INR, PTT INR 1.27 (0.82-1.09) H 09/06/17 16:15 Assessment/Plan 66M HTN, DM II, dormant lupus, interstitial lung disease admitted for sepsis, PNA with PVCs, tachycardia PVCs - improved - echo report reviewed from 09/09, normal LV/RV size and function, Estimated PASP 30-40mmHg, No signifincat valvular abnormaltiy - cont bb - replete K if <4.0, Mg if <2.0 Tachycardia - likely in setting of sepsis - Now restarted Metoprolol Succ 100mg daily, stable sepsis/PNA/advanced interstitial lung disease - on antibiotics per ICU team, IV steroids, high flow O2 HTN -cont home bb
--- NOTE | 2017-09-11 16:00 | PN ---
Progress Note, Physician History of Present Illness: Pt doing well. Has been afebrile. No respiratory distress/SOB on O2 NC. Has no specific complaints. - Current Medication List Current Medications: Active Medications Acetaminophen (Tylenol -) 650 mg PO Q6H PRN PRN Reason: FEVER Last Admin: 09/08/17 21:22 Dose: 650 mg Albuterol Sulfate (Ventolin 0.042trength) -) 1 amp NEB Q6H PRN PRN Reason: SHORT OF BREATH/WHEEZING Last Admin: 09/08/17 03:13 Dose: 1 amp Albuterol/Ipratropium (Duoneb -) 1 amp NEB RQID [facility] Last Admin: 09/11/17 12:16 Dose: 1 amp Ascorbic Acid (Vitamin C -) 1,500 mg PO Q6HPO [facility] Last Admin: 09/11/17 11:42 Dose: 1,500 mg Chlorhexidine Gluconate (Hibiclens For Decolonization -) 1 applic TP HS [facility] Last Admin: 09/10/17 21:17 Dose: 1 applic Heparin Sodium (Porcine) (Heparin -) 5,000 unit SQ TID [facility] Last Admin: 09/11/17 14:05 Dose: 5,000 unit Levofloxacin (Levaquin 750 Mg Premixed Ivpb -) 750 mg in 150 mls @ 150 mls/hr IVPB DAILY [facility]; Protocol Last Admin: 09/11/17 09:41 Dose: 150 mls/hr Insulin Aspart (Novolog Vial Sliding Scale -) 1 vial SQ ACHS [facility]; Protocol Last Admin: 09/11/17 11:37 Dose: 4 units Methylprednisolone Sodium Succinate (Solu-Medrol -) 40 mg IVPUSH BID [facility] Last Admin: 09/11/17 10:00 Dose: Not Given Metoprolol Succinate (Toprol Xl -) 100 mg PO DAILY [facility] Last Admin: 09/11/17 09:41 Dose: 100 mg Mupirocin (Bactroban Ointment (For Decolonization) -) 1 applic NS BID [facility] Stop: 09/12/17 21:59 Last Admin: 09/11/17 10:21 Dose: 1 applic Tamsulosin HCl (Flomax -) 0.4 mg PO DAILY@0830 [facility] Last Admin: 09/11/17 08:21 Dose: 0.4 mg - Objective Vital Signs: Vital Signs Temperature 98.3 F 09/11/17 14:00 Pulse Rate 87 09/11/17 14:00 Respiratory Rate 23 09/11/17 14:00 Blood Pressure 135/93 09/11/17 14:00 O2 Sat by Pulse Oximetry (%) 97 09/11/17 09:00 Constitutional: Yes: No Distress, Calm Cardiovascular: Yes: Regular Rate and Rhythm Respiratory: Yes: CTA Bilaterally Gastrointestinal: Yes: Normal Bowel Sounds, Soft Genitourinary: Yes: WNL Extremities: Yes: WNL Neurological: Yes: Alert, Oriented Labs: CBC, BMP 09/11/17 05:30 09/11/17 05:30 INR, PTT INR 1.27 (0.82-1.09) H 09/06/17 16:15 Problem List - Problems (1) Acute respiratory failure with hypoxia Code(s): J96.01 - ACUTE RESPIRATORY FAILURE WITH HYPOXIA (2) Pneumonia Code(s): J18.9 - PNEUMONIA, UNSPECIFIED ORGANISM (3) SLE (systemic lupus erythematosus) Code(s): M32.9 - SYSTEMIC LUPUS ERYTHEMATOSUS, UNSPECIFIED (4) Shingles Code(s): B02.9 - ZOSTER WITHOUT COMPLICATIONS Qualifiers: Herpes zoster complications: without complications Qualified Code(s): B02.9 - Zoster without complications Assessment/Plan 66 y.o. male with PMH of SLE, recent shingles presenting with hypoxia with pulmonary infiltrate Acute Respiratory failure - improved PNA s/p Herpes zoster ILD SLE - june d/c antibiotics after tomorrow's dose - pt tolerating O2 via NC - continue monitor vitals, appears stable at this time cc time 40m
[2017-09-11] MEDS ORDERED: HEMOQUE TEST 1 EACH EACH ONE (16:34)
[2017-09-11] MEDS ORDERED: ACETAMINOPHEN 325 MG TABLET (FP) PO PRN (18:16)
[2017-09-11] MEDS ORDERED: ALBUTEROL SO4 0.042% IH SOL 1.25 MG/3 ML VIAL.NEB NEB PRN (18:16)
[2017-09-12] MEDS: ASCORBIC ACID 500 MG TABLET (FP) PO SCH ×5 (00:04→23:23)
[2017-09-12] MEDS: HEPARIN NA (PORCINE) 5,000 UNITS/ML 1ML VIAL SQ SCH ×3 (05:09→22:43)
[2017-09-12] MEDS: INSULIN SLIDING SCALE (NOVOLOG) 1 VIAL SQ SCH ×4 (06:10→22:35)
[2017-09-12 06:37] LABS: ANION GAP 8 (8-16); BLOOD UREA NITROGEN 33 mg/dL (7-18); CALCIUM 8.9 mg/dL (8.5-10.1); CHLORIDE 97 mmol/L (98-107); CO2 27 mmol/L (21-32); GLUCOSE,RANDOM 188 mg/dL (74-106); MAGNESIUM 1.8 mg/dL (1.8-2.4); POTASSIUM 4.4 mmol/L (3.5-5.1); SODIUM 132 mmol/L (136-145)
[2017-09-12] MEDS: ALBUTEROL SO4 2.5/IPRATROPIUM 0.5 INH SOL 3 ML VIAL.NEB. NEB SCH ×4 (07:51→21:20)
[2017-09-12] MEDS ORDERED: MAGNESIUM OXIDE 400 MG TABLET (FP) PO ONE (08:15)
[2017-09-12] MEDS: TAMSULOSIN HCL 0.4 MG CAP.ER.24H (FP) PO SCH (08:45)
--- NOTE | 2017-09-12 08:47 | PN ---
Physical Exam: SUBJECTIVE: Patient seen and examined ICU. No complaints today, states his breathing is back at his baseline. Endorses cough, but states it is dry. Not complaining of fevers, chills, chest pain, SOB. nausea, vomiting. OBJECTIVE: Vital Signs Period Temp Pulse Resp BP Sys/Paul Pulse Ox Last 24 Hr 97.6 F-98.9 F 61-88 14-25 126-155/57-93 93-99 GENERAL: Awake, alert, and fully oriented, in no acute distress. HEAD: Normal with no signs of trauma. EYES: PERRLA, EOMI, sclera anicteric, conjunctiva clear. No lid lag. EARS, NOSE, THROAT: Ears normal, nares patent Moist mucous membranes. NECK: supple without lymphadenopathy, JVD, or masses. LUNGS: Diffuse crackles b/l, inspiratory squeeking, rhonchi. No accessory muscle use. HEART: Tachycardic, regular rhythm, normal S1 and S2 without murmur, rub or gallop. ABDOMEN: Obese, soft, nontender, not distended, normoactive bowel sounds, no guarding, no rebound, no masses. MUSCULOSKELETAL: No bony deformities or tenderness. No CVA tenderness. UPPER EXTREMITIES: warm, well-perfused. No cyanosis. No clubbing. No peripheral edema. LOWER EXTREMITIES: warm, well-perfused. No calf tenderness. No peripheral edema. NEUROLOGICAL: Cranial nerves II-XII grossly intact. Normal speech. Gait not observed SKIN: Warm, dry, normal turgor, no rashes or lesions noted. Laboratory Results - last 24 hr 09/09/17 09/09/17 09/10/17 17:01 21:30 06:04 Total Counted Neutrophils % (Manual) Band Neutrophils % Lymphocytes % (Manual) Monocytes % (Manual) Platelet Estimate Platelet Comment Sodium Potassium Chloride Carbon Dioxide Anion Gap BUN Creatinine Creat Clearance w eGFR POC Glucometer 196.25269 263.94796 214.94129 Random Glucose Calcium Phosphorus Magnesium 09/10/17 09/11/17 09/11/17 17:05 05:30 05:37 Total Counted 100 Neutrophils % (Manual) 84.0 H Band Neutrophils % 2.0 Lymphocytes % (Manual) 7.0 L D Monocytes % (Manual) 7 D Platelet Estimate Adequate Platelet Comment No clumping noted Sodium Potassium Chloride Carbon Dioxide Anion Gap BUN Creatinine Creat Clearance w eGFR POC Glucometer 252.17254 196.59141 Random Glucose Calcium Phosphorus Magnesium 09/11/17 09/11/17 09/11/17 11:32 16:40 21:01 Total Counted Neutrophils % (Manual) Band Neutrophils % Lymphocytes % (Manual) Monocytes % (Manual) Platelet Estimate Platelet Comment Sodium Potassium Chloride Carbon Dioxide Anion Gap BUN Creatinine Creat Clearance w eGFR POC Glucometer 213.03417 306.09484 [phone] Random Glucose Calcium Phosphorus Magnesium 09/12/17 05:30 Total Counted Neutrophils % (Manual) Band Neutrophils % Lymphocytes % (Manual) Monocytes % (Manual) Platelet Estimate Platelet Comment Sodium 132 L Potassium 4.4 Chloride 97 L Carbon Dioxide 27 Anion Gap 8 BUN 33 H Creatinine 1.0 Creat Clearance w eGFR > 60 POC Glucometer Random Glucose 188 H Calcium 8.9 Phosphorus 4.0 D Magnesium 1.8 Active Medications Generic Name Dose Route Start Last Admin Trade Name Freq PRN Reason Stop Dose Admin Acetaminophen 650 mg 09/11/17 18:16 Tylenol - PO Q6H PRN FEVER Albuterol Sulfate 1 amp 09/11/17 18:16 Ventolin 0.042trength) - NEB Q6H PRN SHORT OF BREATH/WHEEZING Albuterol/Ipratropium 1 amp 09/11/17 20:00 09/12/17 07:51 Duoneb - NEB 1 amp RQID [facility] Administration Ascorbic Acid 1,500 mg 09/12/17 00:00 09/12/17 05:09 Vitamin C - PO 1,500 mg Q6HPO [facility] Administration Heparin Sodium (Porcine) 5,000 unit 09/11/17 22:00 09/12/17 05:09 Heparin - SQ 5,000 unit TID [facility] Administration Levofloxacin 750 mg in 150 mls @ 150 mls/hr 09/12/17 10:00 Levaquin 750 Mg Premixed Ivpb - IVPB DAILY [facility] Protocol Insulin Aspart 1 vial 09/11/17 22:00 09/12/17 06:10 Novolog Vial Sliding Scale - SQ 2 units ACHS [facility] Administration Protocol Methylprednisolone Sodium Succinate 40 mg 09/11/17 22:00 09/11/17 21:06 Solu-Medrol - IVPUSH 40 mg BID [facility] Administration Metoprolol Succinate 100 mg 09/12/17 10:00 Toprol Xl - PO DAILY [facility] Tamsulosin HCl 0.4 mg 09/12/17 08:30 Flomax - PO DAILY@0830 [facility] ASSESSMENT/PLAN: 66 yo male admitted to the ICU with pneumonia, extensive interstitial lung disease, and impending respiratory failure, which is improving. Neuro -No known neuro issues at this time Cardio -HTN Continue home meds -Tachycardia Improved Respiratory -Interstitial lung disease Hx unclear Spiriva Symbicort Extended steroid taper Pre and post oxygen for Home O2 as pt unable to ambulate without desaturating even on 2l NC -Acute CAP with impending respiratory failure ABG improved on HF O2 Wean HF to 40% ventimask Solu-Medrol 40 mg IV BID for one more day then titrate down GI -No known GI issues at this time Endocrine -DM on metformin Insulin sliding scale for glycemic control -A1C: 6.1 Renal -No known renal insufficiency ID -ID consult appreciated -Acute CAP vs cryptogenic pneumonia received Vanc/Zosyn in the ED Levaquin 750 mg IVPB Daily, today is last day -recent hx of shingles (May), no longer on acyclovir -HIV negative -Quantiferon negative Rheumatology -Hx of SLE, currently claims dormant, not on medications -Rheumatology Consult appreciated DVT Prophylaxis -Heparin 5000 Units SQ TID FEN -Fluids: None -Electrolytes: M.8, repleted BMP in AM -Nutrition: Diabetic/Sodium controlled diet Disposition Can be transferred to med/surg Problem List - Problems (1) Acute respiratory failure with hypoxia Code(s): J96.01 - ACUTE RESPIRATORY FAILURE WITH HYPOXIA (2) Pneumonia Code(s): J18.9 - PNEUMONIA, UNSPECIFIED ORGANISM (3) SLE (systemic lupus erythematosus) Code(s): M32.9 - SYSTEMIC LUPUS ERYTHEMATOSUS, UNSPECIFIED (4) Sepsis Code(s): A41.9 - SEPSIS, UNSPECIFIED ORGANISM (5) Shingles Code(s): B02.9 - ZOSTER WITHOUT COMPLICATIONS Qualifiers: Herpes zoster complications: without complications Qualified Code(s): B02.9 - Zoster without complications Visit type - Emergency Visit Emergency Visit: Yes ED Registration Date: 09/07/17 Care time: The patient presented to the Emergency Department on the above date and was hospitalized for further evaluation of their emergent condition. - New Patient This patient is new to me today: No - Critical Care Critical Care patient: Yes Total Critical Care Time (in minutes): 35 Critical Care Statement: The care of this patient involved high complexity decision making to prevent further life threatening deterioration of the patient 's condition and/or to evaluate & treat vital organ system(s) failure or risk of failure.
[2017-09-12] MEDS: methylPREDNISolone NA SUCC 40 MG/1 ML VIAL IVPUSH SCH ×2 (09:00→22:37)
[2017-09-12] MEDS: TIOTROPIUM BROMIDE 18 MCG CAPSULES IH SCH (12:31)
[2017-09-12] MEDS: BUDESONIDE/FORMETEROL FUMARATE 160/4.5 mcg INHALER IH SCH ×2 (12:34→22:39)
--- NOTE | 2017-09-12 13:59 | PN ---
Progress Note (short form) - Note Progress Note: S: No events overnight No CV complaints this AM, he feels back to normal tele occasional PVCs, HR 80s-100s - Current Medication List Current Medications Generic Name Dose Route Start Last Admin Trade Name Freq PRN Reason Stop Dose Admin Acetaminophen 650 mg 09/11/17 18:16 Tylenol - PO Q6H PRN FEVER Albuterol Sulfate 1 amp 09/11/17 18:16 Ventolin 0.042trength) - NEB Q6H PRN SHORT OF BREATH/WHEEZING Albuterol/Ipratropium 1 amp 09/11/17 20:00 09/12/17 12:05 Duoneb - NEB 1 amp RQID [facility] Administration Ascorbic Acid 1,500 mg 09/12/17 00:00 09/12/17 12:29 Vitamin C - PO 1,500 mg Q6HPO [facility] Administration Budesonide/Formoterol Fumarate 2 puff 09/12/17 11:30 09/12/17 12:34 Symbicort 160/4.5mcg - IH 2 puff BID [facility] Administration Heparin Sodium (Porcine) 5,000 unit 09/11/17 22:00 09/12/17 05:09 Heparin - SQ 5,000 unit TID [facility] Administration Insulin Aspart 1 vial 09/11/17 22:00 09/12/17 12:29 Novolog Vial Sliding Scale - SQ 4 units ACHS [facility] Administration Protocol Methylprednisolone Sodium Succinate 40 mg 09/11/17 22:00 09/12/17 09:00 Solu-Medrol - IVPUSH 40 mg BID [facility] Administration Metoprolol Succinate 100 mg 09/12/17 10:00 09/12/17 08:59 Toprol Xl - PO 100 mg DAILY [facility] Administration Tamsulosin HCl 0.4 mg 09/12/17 08:30 09/12/17 08:45 Flomax - PO 0.4 mg DAILY@0830 [facility] Administration Tiotropium [place] 1 puff 09/12/17 11:30 09/12/17 12:31 Spiriva - IH 1 puff DAILY [facility] Administration - Objective Vital Signs Period Temp Pulse Resp BP Sys/Paul Pulse Ox Last 24 Hr 97.6 F-99 F 61-110 14-27 111-155/57-93 93-99 Constitutional: Yes: No Distress Eyes: Yes: WNL HENT: Yes: WNL Neck: Yes: WNL Cardiovascular: Yes: WNL, Regular Rate and Rhythm Respiratory: Yes: CTA Bilaterally Musculoskeletal: Yes: WNL Extremities: Yes: WNL, Internal Rotation Labs: Laboratory Results - last 24 hr 09/09/17 09/09/17 09/10/17 17:01 21:30 06:04 Sodium Potassium Chloride Carbon Dioxide Anion Gap BUN Creatinine Creat Clearance w eGFR POC Glucometer 196.51363 263.77609 [phone] Random Glucose Calcium Phosphorus Magnesium 09/10/17 09/11/17 09/11/17 17:05 05:37 11:32 Sodium Potassium Chloride Carbon Dioxide Anion Gap BUN Creatinine Creat Clearance w eGFR POC Glucometer 252.34936 196.43307 213.40607 Random Glucose Calcium Phosphorus Magnesium 09/11/17 09/11/17 09/12/17 16:40 21:01 05:30 Sodium 132 L Potassium 4.4 Chloride 97 L Carbon Dioxide 27 Anion Gap 8 BUN 33 H Creatinine 1.0 Creat Clearance w eGFR > 60 POC Glucometer 306.05556 [phone] Random Glucose 188 H Calcium 8.9 Phosphorus 4.0 D Magnesium 1.8 09/12/17 12:26 Sodium Potassium Chloride Carbon Dioxide Anion Gap BUN Creatinine Creat Clearance w eGFR POC Glucometer 220.54447 Random Glucose Calcium Phosphorus Magnesium Assessment/Plan 66M HTN, DM II, dormant lupus, interstitial lung disease admitted for sepsis, PNA with PVCs, tachycardia PVCs - improved on bb - echo report reviewed from 09/09, normal LV/RV size and function, Estimated PASP 30-40mmHg, No significant valvular abnormaltiy - cont bb - replete K if <4.0, Mg if <2.0 Tachycardia - likely in setting of sepsis - Now restarted Metoprolol Succ 100mg daily, stable sepsis/PNA/advanced interstitial lung disease - on antibiotics per ICU team, IV steroids, high flow O2 HTN -cont home bb
--- NOTE | 2017-09-12 15:05 | PN ---
Physical Exam: SUBJECTIVE: Patient seen and examined in icu. Pt is feeling well, he is up to chair. Desaturation with pre and post OBJECTIVE: Vital Signs Period Temp Pulse Resp BP Sys/Paul Pulse Ox Last 24 Hr 97.6 F-99 F 61-110 14-27 111-155/57-84 88-99 PE Neuro: alert, awake, cn 2-12intact Pulm: left base crackles +nc CV: s1 s2 rrr no mrg Abd: s nt nd + bs Ext: warm, no le edema Laboratory Results - last 24 hr 09/11/17 09/11/17 09/12/17 16:40 21:01 05:30 Sodium 132 L Potassium 4.4 Chloride 97 L Carbon Dioxide 27 Anion Gap 8 BUN 33 H Creatinine 1.0 Creat Clearance w eGFR > 60 POC Glucometer 306.19880 172.87383 Random Glucose 188 H Calcium 8.9 Phosphorus 4.0 D Magnesium 1.8 Active Medications Generic Name Dose Route Start Last Admin Trade Name Freq PRN Reason Stop Dose Admin Acetaminophen 650 mg 09/11/17 18:16 Tylenol - PO Q6H PRN FEVER Albuterol Sulfate 1 amp 09/11/17 18:16 Ventolin 0.042trength) - NEB Q6H PRN SHORT OF BREATH/WHEEZING Albuterol/Ipratropium 1 amp 09/11/17 20:00 09/12/17 12:05 Duoneb - NEB 1 amp RQID [facility] Administration Ascorbic Acid 1,500 mg 09/12/17 00:00 09/12/17 12:29 Vitamin C - PO 1,500 mg Q6HPO [facility] Administration Budesonide/Formoterol Fumarate 2 puff 09/12/17 11:30 09/12/17 12:34 Symbicort 160/4.5mcg - IH 2 puff BID [facility] Administration Heparin Sodium (Porcine) 5,000 unit 09/11/17 22:00 09/12/17 05:09 Heparin - SQ 5,000 unit TID [facility] Administration Insulin Aspart 1 vial 09/11/17 22:00 09/12/17 12:29 Novolog Vial Sliding Scale - SQ 4 units ACHS [facility] Administration Protocol Methylprednisolone Sodium Succinate 40 mg 09/11/17 22:00 09/12/17 09:00 Solu-Medrol - IVPUSH 40 mg BID [facility] Administration Metoprolol Succinate 100 mg 09/12/17 10:00 09/12/17 08:59 Toprol Xl - PO 100 mg DAILY [facility] Administration Tamsulosin HCl 0.4 mg 09/12/17 08:30 09/12/17 08:45 Flomax - PO 0.4 mg DAILY@0830 [facility] Administration Tiotropium [place] 1 puff 09/12/17 11:30 09/12/17 12:31 Spiriva - IH 1 puff DAILY [facility] Administration Imaging: - CTAP/Chest CT: emphysematous changes and interstitial lung disease. Honeycombing. mosaic attenuation, bronchiectasis noted. infiltrate vs mass is present on RADHA. Spleen: enlarged spleen. Assessment: 66 year old male with pmhx HTN, DM II, Gout, dormant lupus, diabetes , recent shingles (05/2017), interstitial lung disease, and BPH admitted with fever, chills, low back pain/tenderness, sob. Plan: 1. Sepsis d/t RADHA pna - Completed 5 days Levaquin - Continue steroids 40mg q12 2. Acute hypoxic resp failure - Continue supplemental 02 - Pre and post noted - Continue steroids BID and repeat pre and post, currently requiring ~6L 3. Interstitial lung disease - Will need PFTs and repeat imaging as outpt, close follow up 4. Recent Shingles - Treated 05/2017 5. HTN/Tachycardia - Improved - Toprol xl 100mg daily 6. DM II - ISS, BGM, ACHS - Hold po antidiabetics 7. BURKE Resolved 8. SLE - Dormant, ILD?, previously worked up and dx was ruled out, no treatment for lupus - CHERRY, anti-Sm/[employer] pending 9. Thrombocytopenia - Resolved Visit type - Emergency Visit Emergency Visit: Yes ED Registration Date: 09/07/17 Care time: The patient presented to the Emergency Department on the above date and was hospitalized for further evaluation of their emergent condition. - New Patient This patient is new to me today: No - Critical Care Critical Care patient: No
--- NOTE | 2017-09-12 15:38 | PN ---
Teaching Attending Note Name of Resident: Allan Head ATTENDING PHYSICIAN STATEMENT I saw and evaluated the patient. I reviewed the resident's note and discussed the case with the resident. I agree with the resident's findings and plan as documented. SUBJECTIVE: Patient seen and examined in the ICU. Breathing continues to improve. Saturating well on nasal cannula. Minimal cough and wheezing. OBJECTIVE: Intake & Output 09/09/17 09/10/17 09/11/17 09/12/17 23:59 23:59 23:59 23:59 Intake Total 630 790 990 240 Output Total 2200 1000 2750 1100 Balance -1570 -210 -1760 -860 Weight 173 lb 173 lb 11.2 oz 168 lb 12.8 oz 167 lb 4.8 oz Last Vital Signs Temp Pulse Resp BP Pulse Ox 99 F 74 23 123/76 88 L 09/12/17 12:00 09/12/17 14:00 09/12/17 14:00 09/12/17 14:00 09/12/17 13:55 Active Medications Acetaminophen (Tylenol -) 650 mg PO Q6H PRN PRN Reason: FEVER Albuterol Sulfate (Ventolin 0.042trength) -) 1 amp NEB Q6H PRN PRN Reason: SHORT OF BREATH/WHEEZING Albuterol/Ipratropium (Duoneb -) 1 amp NEB RQID [facility] Last Admin: 09/12/17 12:05 Dose: 1 amp Ascorbic Acid (Vitamin C -) 1,500 mg PO Q6HPO [facility] Last Admin: 09/12/17 12:29 Dose: 1,500 mg Budesonide/Formoterol Fumarate (Symbicort 160/4.5mcg -) 2 puff IH BID [facility] Last Admin: 09/12/17 12:34 Dose: 2 puff Heparin Sodium (Porcine) (Heparin -) 5,000 unit SQ TID [facility] Last Admin: 09/12/17 15:07 Dose: 5,000 unit Insulin Aspart (Novolog Vial Sliding Scale -) 1 vial SQ ACHS [facility]; Protocol Last Admin: 09/12/17 12:29 Dose: 4 units Methylprednisolone Sodium Succinate (Solu-Medrol -) 40 mg IVPUSH BID [facility] Last Admin: 09/12/17 09:00 Dose: 40 mg Metoprolol Succinate (Toprol Xl -) 100 mg PO DAILY [facility] Last Admin: 09/12/17 08:59 Dose: 100 mg Tamsulosin HCl (Flomax -) 0.4 mg PO DAILY@0830 [facility] Last Admin: 09/12/17 08:45 Dose: 0.4 mg Tiotropium [place] (Spiriva -) 1 puff IH DAILY [facility] Last Admin: 09/12/17 12:31 Dose: 1 puff Gen: NAD at rest Heart: RRR Lung: coarse basilar rales/rhonchi Abd: soft, nontender Ext: no edema Laboratory Results - last 24 hr 09/09/17 09/09/17 09/10/17 17:01 21:30 06:04 Sodium Potassium Chloride Carbon Dioxide Anion Gap BUN Creatinine Creat Clearance w eGFR POC Glucometer 196.21507 263.80098 214.39824 Random Glucose Calcium Phosphorus Magnesium 09/10/17 09/11/17 09/11/17 17:05 05:37 11:32 Sodium Potassium Chloride Carbon Dioxide Anion Gap BUN Creatinine Creat Clearance w eGFR POC Glucometer 252.54439 196.58997 213.23308 Random Glucose Calcium Phosphorus Magnesium 09/11/17 09/11/17 09/12/17 16:40 21:01 05:30 Sodium 132 L Potassium 4.4 Chloride 97 L Carbon Dioxide 27 Anion Gap 8 BUN 33 H Creatinine 1.0 Creat Clearance w eGFR > 60 POC Glucometer 306.74886 172.42246 Random Glucose 188 H Calcium 8.9 Phosphorus 4.0 D Magnesium 1.8 09/12/17 12:26 Sodium Potassium Chloride Carbon Dioxide Anion Gap BUN Creatinine Creat Clearance w eGFR POC Glucometer 220.42016 Random Glucose Calcium Phosphorus Magnesium ASSESSMENT AND PLAN: Acute on Chronic Hypoxic Respiratory Failure Pneumonia Interstitial Lung Disease HTN DM BPH - Antibiotics to be completed today - Prednisone - Inhaled bronchodilators - O2 to keep Spo2 >90% - PO as tolerated - DVT prophylaxis - When ready for discharg: LABA / LAMA / ICS / slow Prednisone taper - D/C planning Dr Javier Critical care time spent in reviewing chart, evaluating patient and formulating plan - 36 minutes.
--- NOTE | 2017-09-12 15:59 | PN ---
Progress Note, Physician History of Present Illness: doing much better breathing much better daughter in room no complaints patient was able to walk - Current Medication List Current Medications: Active Medications Acetaminophen (Tylenol -) 650 mg PO Q6H PRN PRN Reason: FEVER Albuterol Sulfate (Ventolin 0.042trength) -) 1 amp NEB Q6H PRN PRN Reason: SHORT OF BREATH/WHEEZING Albuterol/Ipratropium (Duoneb -) 1 amp NEB RQID [facility] Last Admin: 09/12/17 12:05 Dose: 1 amp Ascorbic Acid (Vitamin C -) 1,500 mg PO Q6HPO [facility] [place] Last Admin: 09/12/17 12:29 Dose: 1,500 mg Budesonide/Formoterol Fumarate (Symbicort 160/4.5mcg -) 2 puff IH BID [facility] [place] Last Admin: 09/12/17 12:34 Dose: 2 puff Heparin Sodium (Porcine) (Heparin -) 5,000 unit SQ TID [facility] [place] Last Admin: 09/12/17 15:07 Dose: 5,000 unit Insulin Aspart (Novolog Vial Sliding Scale -) 1 vial SQ [facility] [place]; Protocol Last Admin: 09/12/17 12:29 Dose: 4 units Methylprednisolone Sodium Succinate (Solu-Medrol -) 40 mg IVPUSH BID [facility] [place] Last Admin: 09/12/17 09:00 Dose: 40 mg Metoprolol Succinate (Toprol Xl -) 100 mg PO DAILY [facility] [place] Last Admin: 09/12/17 08:59 Dose: 100 mg Tamsulosin HCl (Flomax -) 0.4 mg PO DAILY@0830 [facility] Last Admin: 09/12/17 08:45 Dose: 0.4 mg Tiotropium [place] (Spiriva -) 1 puff IH DAILY [facility] [place] Last Admin: 09/12/17 12:31 Dose: 1 puff - Objective Vital Signs: Vital Signs Temperature 99 F 09/12/17 12:00 Pulse Rate 74 09/12/17 14:00 Respiratory Rate 23 09/12/17 14:00 Blood Pressure 123/76 09/12/17 14:00 O2 Sat by Pulse Oximetry (%) 88 L 09/12/17 13:55 Constitutional: Yes: No Distress, Calm Cardiovascular: Yes: Regular Rate and Rhythm Respiratory: Yes: Regular, On Nasal O2, Poor Air Entry, Rales, Rhonchi Musculoskeletal: Yes: WNL Extremities: Yes: WNL Neurological: Yes: Alert, Oriented Psychiatric: Yes: Alert, Oriented Labs: CBC, BMP 09/11/17 05:30 09/12/17 05:30 INR, PTT INR 1.27 (0.82-1.09) H 09/06/17 16:15 Assessment/Plan (1) Acute respiratory failure with hypoxia Code(s): J96.01 - ACUTE RESPIRATORY FAILURE WITH HYPOXIA (2) Shingles Code(s): B02.9 - ZOSTER WITHOUT COMPLICATIONS Qualifiers: Herpes zoster complications: without complications Qualified Code(s): B02.9 - Zoster without complications (3) Pneumonia Code(s): J18.9 - PNEUMONIA, UNSPECIFIED ORGANISM (4) SLE (systemic lupus erythematosus) Code(s): M32.9 - SYSTEMIC LUPUS ERYTHEMATOSUS, UNSPECIFIED plan continue as per icu continue current abx abx course completing today should be able to deescalate tomorrow continue resp support cc 40 min
[2017-09-12] MEDS ORDERED: PT OWN MED DRAWER 7, Y5N ONE (17:27)
[2017-09-13] MEDS: HEPARIN NA (PORCINE) 5,000 UNITS/ML 1ML VIAL SQ SCH ×3 (06:15→21:06)
[2017-09-13] MEDS: ASCORBIC ACID 500 MG TABLET (FP) PO SCH ×3 (06:15→17:58)
[2017-09-13] MEDS: INSULIN SLIDING SCALE (NOVOLOG) 1 VIAL SQ SCH ×4 (06:20→21:07)
[2017-09-13] MEDS: ALBUTEROL SO4 2.5/IPRATROPIUM 0.5 INH SOL 3 ML VIAL.NEB. NEB SCH ×4 (07:35→20:30)
[2017-09-13 08:13] LABS: ANION GAP 9 (8-16); BLOOD UREA NITROGEN 35 mg/dL (7-18); CALCIUM 8.7 mg/dL (8.5-10.1); CHLORIDE 100 mmol/L (98-107); CO2 26 mmol/L (21-32); GLUCOSE,RANDOM 188 mg/dL (74-106); MAGNESIUM 1.9 mg/dL (1.8-2.4); POTASSIUM 4.7 mmol/L (3.5-5.1); SODIUM 135 mmol/L (136-145)
[2017-09-13 08:14] LABS: CREATININE 0.9 mg/dL (0.7-1.3)
[2017-09-13] MEDS ORDERED: PT OWN MED DRAWER 7, Y5N ONE (09:41)
[2017-09-13] MEDS: TIOTROPIUM BROMIDE 18 MCG CAPSULES IH SCH (09:43)
[2017-09-13] MEDS: BUDESONIDE/FORMETEROL FUMARATE 160/4.5 mcg INHALER IH SCH ×2 (09:44→21:07)
[2017-09-13] MEDS: methylPREDNISolone NA SUCC 40 MG/1 ML VIAL IVPUSH SCH ×2 (09:44→21:07)
[2017-09-13] MEDS: TAMSULOSIN HCL 0.4 MG CAP.ER.24H (FP) PO SCH (09:44)
--- NOTE | 2017-09-13 12:16 | PN ---
Progress Note, Physician History of Present Illness: still requiring oxygen needing increase oxygenation when walking otherwise stable - Current Medication List Current Medications: Active Medications Acetaminophen (Tylenol -) 650 mg PO Q6H PRN PRN Reason: FEVER Albuterol Sulfate (Ventolin 0.042trength) -) 1 amp NEB Q6H PRN PRN Reason: SHORT OF BREATH/WHEEZING Albuterol/Ipratropium (Duoneb -) 1 amp NEB RQID [facility] Last Admin: 09/13/17 11:20 Dose: 1 amp Ascorbic Acid (Vitamin C -) 1,500 mg PO Q6HPO [facility] Last Admin: 09/13/17 11:53 Dose: 1,500 mg Budesonide/Formoterol Fumarate (Symbicort 160/4.5mcg -) 2 puff IH BID [facility] Last Admin: 09/13/17 09:44 Dose: 2 puff Heparin Sodium (Porcine) (Heparin -) 5,000 unit SQ TID [facility] Last Admin: 09/13/17 06:15 Dose: 5,000 unit Insulin Aspart (Novolog Vial Sliding Scale -) 1 vial SQ ACHS [facility]; Protocol Last Admin: 09/13/17 11:52 Dose: 2 units Methylprednisolone Sodium Succinate (Solu-Medrol -) 40 mg IVPUSH BID [facility] Last Admin: 09/13/17 09:44 Dose: 40 mg Metoprolol Succinate (Toprol Xl -) 100 mg PO DAILY [facility] Last Admin: 09/13/17 09:43 Dose: 100 mg Tamsulosin HCl (Flomax -) 0.4 mg PO DAILY@0830 [facility] Last Admin: 09/13/17 09:44 Dose: 0.4 mg Tiotropium [place] (Spiriva -) 1 puff IH DAILY [facility] Last Admin: 09/13/17 09:43 Dose: 1 puff - Objective Vital Signs: Vital Signs Temperature 98.6 F 09/13/17 09:00 Pulse Rate 92 H 09/13/17 09:00 Respiratory Rate 17 09/13/17 09:00 Blood Pressure 118/58 09/13/17 09:00 O2 Sat by Pulse Oximetry (%) 96 09/13/17 10:06 Constitutional: Yes: No Distress, Calm Cardiovascular: Yes: Regular Rate and Rhythm Respiratory: Yes: Regular, CTA Bilaterally, On Nasal O2 Gastrointestinal: Yes: Normal Bowel Sounds, Soft Musculoskeletal: Yes: WNL Extremities: Yes: WNL Neurological: Yes: Alert, Oriented Psychiatric: Yes: Alert, Oriented Labs: CBC, BMP 09/11/17 05:30 09/13/17 06:15 INR, PTT INR 1.27 (0.82-1.09) H 09/06/17 16:15 Assessment/Plan (1) Acute respiratory failure with hypoxia Code(s): J96.01 - ACUTE RESPIRATORY FAILURE WITH HYPOXIA (2) Shingles Code(s): B02.9 - ZOSTER WITHOUT COMPLICATIONS Qualifiers: Herpes zoster complications: without complications Qualified Code(s): B02.9 - Zoster without complications (3) Pneumonia Code(s): J18.9 - PNEUMONIA, UNSPECIFIED ORGANISM (4) SLE (systemic lupus erythematosus) Code(s): M32.9 - SYSTEMIC LUPUS ERYTHEMATOSUS, UNSPECIFIED plan off of all abx resp phsyio incentive mary beth rest as per the team
--- NOTE | 2017-09-13 13:14 | PN ---
Progress Note, Physician History of Present Illness: pulmonary alert,nad,-sob on nasal cannula - Current Medication List Current Medications: Active Medications Acetaminophen (Tylenol -) 650 mg PO Q6H PRN PRN Reason: FEVER Albuterol Sulfate (Ventolin 0.042trength) -) 1 amp NEB Q6H PRN PRN Reason: SHORT OF BREATH/WHEEZING Albuterol/Ipratropium (Duoneb -) 1 amp NEB RQID [facility] Last Admin: 09/13/17 11:20 Dose: 1 amp Ascorbic Acid (Vitamin C -) 1,500 mg PO Q6HPO [facility] Last Admin: 09/13/17 11:53 Dose: 1,500 mg Budesonide/Formoterol Fumarate (Symbicort 160/4.5mcg -) 2 puff IH BID [facility] Last Admin: 09/13/17 09:44 Dose: 2 puff Heparin Sodium (Porcine) (Heparin -) 5,000 unit SQ TID [facility] Last Admin: 09/13/17 06:15 Dose: 5,000 unit Insulin Aspart (Novolog Vial Sliding Scale -) 1 vial SQ ACHS [facility]; Protocol Last Admin: 09/13/17 11:52 Dose: 2 units Methylprednisolone Sodium Succinate (Solu-Medrol -) 40 mg IVPUSH BID [facility] Last Admin: 09/13/17 09:44 Dose: 40 mg Metoprolol Succinate (Toprol Xl -) 100 mg PO DAILY [facility] Last Admin: 09/13/17 09:43 Dose: 100 mg Tamsulosin HCl (Flomax -) 0.4 mg PO DAILY@0830 [facility] Last Admin: 09/13/17 09:44 Dose: 0.4 mg Tiotropium [place] (Spiriva -) 1 puff IH DAILY [facility] Last Admin: 09/13/17 09:43 Dose: 1 puff - Objective Vital Signs: Vital Signs Temperature 98.6 F 09/13/17 09:00 Pulse Rate 92 H 09/13/17 09:00 Respiratory Rate 17 09/13/17 09:00 Blood Pressure 118/58 09/13/17 09:00 O2 Sat by Pulse Oximetry (%) 96 09/13/17 10:06 Constitutional: Yes: Well Nourished, Calm Eyes: Yes: WNL HENT: Yes: WNL Neck: Yes: WNL Cardiovascular: Yes: Regular Rate and Rhythm, S1, S2 Respiratory: Yes: Rales (bilateral crackles) Gastrointestinal: Yes: Normal Bowel Sounds, Soft Extremities: Yes: WNL Edema: No Labs: 09/13/17 06:15 INR, PTT INR 1.27 (0.82-1.09) H 09/06/17 16:15 Problem List - Problems (1) Acute respiratory failure with hypoxia Code(s): J96.01 - ACUTE RESPIRATORY FAILURE WITH HYPOXIA (2) Shingles Code(s): B02.9 - ZOSTER WITHOUT COMPLICATIONS Qualifiers: Herpes zoster complications: without complications Qualified Code(s): B02.9 - Zoster without complications (3) Pneumonia Code(s): J18.9 - PNEUMONIA, UNSPECIFIED ORGANISM (4) SLE (systemic lupus erythematosus) Code(s): M32.9 - SYSTEMIC LUPUS ERYTHEMATOSUS, UNSPECIFIED Assessment/Plan ASSESSMENT AND PLAN: Acute on Chronic Hypoxic Respiratory Failure Pneumonia Interstitial Lung Disease HTN DM BPH - medrol taper - inhaled bronchodilators - O2 to keep Spo2 >90% - DVT prophylaxis - when ready for discharge, check ambulatory SpO2 on room air to assess for home O2 - pfts outpatient DR SMART
--- NOTE | 2017-09-13 13:56 | EKG ---
Test Reason : Blood Pressure : / mmHG Vent. Rate : 079 BPM Atrial Rate : 079 BPM P-R Int : 146 ms QRS Dur : 104 ms QT Int : 382 ms P-R-T Axes : 048 -09 037 degrees QTc Int : 438 ms NORMAL SINUS RHYTHM INFERIOR INFARCT (CITED ON OR BEFORE 06-SEP-2017) ABNORMAL ECG Confirmed by Robert Mujica MD ([id number]) on 09/13/2017 1:56:13 PM Referred By: GAGE Young DR Confirmed By:Robert Mujica MD
--- NOTE | 2017-09-13 16:12 | PN ---
Physical Exam: SUBJECTIVE: Patient seen and examined OBJECTIVE: Vital Signs Period Temp Pulse Resp BP Sys/Paul Pulse Ox Last 24 Hr 97.9 F-98.6 F 73-92 17-18 118-141/58-78 95-96 GENERAL: The patient is awake, alert, and fully oriented, in no acute distress. LUNGS: Mild bibasilar crackles HEART: Regular rate and rhythm, S1, S2 ABDOMEN: Soft, nontender, nondistended EXTREMITIES: 2+ pulses, warm, well-perfused, no edema. NEUROLOGICAL: Cranial nerves II through XII grossly intact. Normal speech. Laboratory Results - last 24 hr 09/09/17 09/12/17 09/12/17 05:30 16:36 22:34 Sodium Potassium Chloride Carbon Dioxide Anion Gap BUN Creatinine Creat Clearance w eGFR POC Glucometer [id number] Random Glucose Calcium Magnesium Tot Complement (CH50) > 60 09/13/17 09/13/17 09/13/17 06:15 06:20 11:44 Sodium 135 L Potassium 4.7 Chloride 100 Carbon Dioxide 26 Anion Gap 9 BUN 35 H Creatinine 0.9 Creat Clearance w eGFR > 60 POC Glucometer 188 186 Random Glucose 188 H Calcium 8.7 Magnesium 1.9 Tot Complement (CH50) Active Medications Generic Name Dose Route Start Last Admin Trade Name Freq PRN Reason Stop Dose Admin Acetaminophen 650 mg 09/11/17 18:16 Tylenol - PO Q6H PRN FEVER Albuterol Sulfate 1 amp 09/11/17 18:16 Ventolin 0.042trength) - NEB Q6H PRN SHORT OF BREATH/WHEEZING Albuterol/Ipratropium 1 amp 09/11/17 20:00 09/13/17 11:20 Duoneb - NEB 1 amp RQID [facility] Administration Ascorbic Acid 1,500 mg 09/12/17 00:00 09/13/17 11:53 Vitamin C - PO 1,500 mg Q6HPO [facility] Administration Budesonide/Formoterol Fumarate 2 puff 09/12/17 11:30 09/13/17 09:44 Symbicort 160/4.5mcg - IH 2 puff BID [facility] Administration Heparin Sodium (Porcine) 5,000 unit 09/11/17 22:00 09/13/17 15:41 Heparin - SQ 5,000 unit TID [facility] Administration Insulin Aspart 1 vial 09/11/17 22:00 09/13/17 11:52 Novolog Vial Sliding Scale - SQ 2 units ACHS [facility] Administration Protocol Methylprednisolone Sodium Succinate 40 mg 09/11/17 22:00 09/13/17 09:44 Solu-Medrol - IVPUSH 40 mg BID [facility] Administration Metoprolol Succinate 100 mg 09/12/17 10:00 09/13/17 09:43 Toprol Xl - PO 100 mg DAILY [facility] Administration Tamsulosin HCl 0.4 mg 09/12/17 08:30 09/13/17 09:44 Flomax - PO 0.4 mg DAILY@0830 [facility] Administration Tiotropium [place] 1 puff 09/12/17 11:30 09/13/17 09:43 Spiriva - IH 1 puff DAILY [facility] Administration ASSESSMENT/PLAN 66 year-old male with PMH significant for HTN, NIDDM, interstitial lung disease , and BPH admitted with pneumonia. Sepsis secondary to pneumonia --antibiotic course complete (Zosyn 09/06-->09/08; levofloxacin 09/07-->09/12) --tapering steroids, discharge on PO Interstitial lung disease --09/06 CT chest: emphysematous changes and ILD --patient states he follows with Dr. Javier as outpatient Hypoxic respiratory failure --patient not previously dependent on O2; on pre post testing on 09/12 satted 86% at rest and required 6L to achieve 91% with ambulation --will need home O2 --would benefit from pulmonary rehab stay Hypertension --BP stable --continue Toprol XL NIDDM --Novolog sliding scale coverage [place] --Cr 1.5 on admission, now 0.9 FEN Fluids: PO intake adequate Electrolytes: replete as indicated Nutrition: diabetic low sodium DVT prohylaxis: subq heparin Physical therapy Dispo: would benefit from pulmonary rehab. Patrick rojas. Full code. Visit type - Emergency Visit Emergency Visit: Yes ED Registration Date: 09/07/17 Care time: The patient presented to the Emergency Department on the above date and was hospitalized for further evaluation of their emergent condition. - New Patient This patient is new to me today: Yes Date on this admission: 09/14/17 - Critical Care Critical Care patient: No
[2017-09-14] MEDS: ASCORBIC ACID 500 MG TABLET (FP) PO SCH ×3 (01:26→12:22)
[2017-09-14] MEDS: HEPARIN NA (PORCINE) 5,000 UNITS/ML 1ML VIAL SQ SCH ×2 (06:18→14:03)
[2017-09-14] MEDS: INSULIN SLIDING SCALE (NOVOLOG) 1 VIAL SQ SCH ×2 (06:19→11:22)
[2017-09-14] MEDS: ALBUTEROL SO4 2.5/IPRATROPIUM 0.5 INH SOL 3 ML VIAL.NEB. NEB SCH ×2 (07:49→11:19)
[2017-09-14] MEDS ORDERED: PT OWN MED DRAWER 7, Y5N ONE (09:26)
[2017-09-14] MEDS: BUDESONIDE/FORMETEROL FUMARATE 160/4.5 mcg INHALER IH SCH (09:32)
[2017-09-14] MEDS: TIOTROPIUM BROMIDE 18 MCG CAPSULES IH SCH (09:32)
[2017-09-14] MEDS: methylPREDNISolone NA SUCC 40 MG/1 ML VIAL IVPUSH SCH (09:33)
[2017-09-14] MEDS: TAMSULOSIN HCL 0.4 MG CAP.ER.24H (FP) PO SCH (09:33)
--- NOTE | 2017-09-14 10:58 | DS ---
Physical Exam: SUBJECTIVE: Patient seen and examined OBJECTIVE: Vital Signs Period Temp Pulse Resp BP Sys/Paul Pulse Ox Last 24 Hr 97.8 F-98.9 F 71-92 18-20 115-135/61-80 98 PHYSICAL EXAM GENERAL: The patient is awake, alert, and fully oriented, in no acute distress. LUNGS: Mild bibasilar crackles HEART: Regular rate and rhythm, S1, S2 ABDOMEN: Soft, nontender, nondistended EXTREMITIES: 2+ pulses, warm, well-perfused, no edema. NEUROLOGICAL: Cranial nerves II through XII grossly intact. Normal speech. LABS CBCD WBC 7.2 K/mm3 (4.0-10.0) 09/11/17 05:30 RBC 4.16 M/mm3 (4.00-5.60) 09/11/17 05:30 Hgb 12.8 GM/dL (11.7-16.9) 09/11/17 05:30 Hct 37.6 % (35.4-49) 09/11/17 05:30 MCV 90.3 fl (80-96) 09/11/17 05:30 MCHC 34.1 g/dl (32.0-35.9) 09/11/17 05:30 RDW 16.0 % (11.9-15.9) H 09/11/17 05:30 Plt Count 174 K/MM3 (134-434) 09/11/17 05:30 MPV 8.9 fl (7.5-11.1) 09/11/17 05:30 CMP Sodium 135 mmol/L (136-145) L 09/13/17 06:15 Potassium 4.7 mmol/L (3.5-5.1) 09/13/17 06:15 Chloride 100 mmol/L (98-107) 09/13/17 06:15 Carbon Dioxide 26 mmol/L (21-32) 09/13/17 06:15 Anion Gap 9 (8-16) 09/13/17 06:15 BUN 35 mg/dL (7-18) H 09/13/17 06:15 Creatinine 0.9 mg/dL (0.7-1.3) 09/13/17 06:15 Creat Clearance w eGFR > 60 (>60) 09/13/17 06:15 Calcium 8.7 mg/dL (8.5-10.1) 09/13/17 06:15 Total Bilirubin 0.5 mg/dL (0.2-1.0) 09/11/17 05:30 AST 16 U/L (15-37) D 09/11/17 05:30 ALT 59 U/L (12-78) 09/11/17 05:30 Alkaline Phosphatase 69 U/L (45-117) 09/11/17 05:30 Total Protein 6.1 g/dl (6.4-8.2) L 09/11/17 05:30 Albumin 2.5 g/dl (3.4-5.0) L 09/11/17 05:30 HOSPITAL COURSE: Date of Admission:09/07/17 Date of Discharge: 09/14/17 66 year-old male with PMH significant for HTN, NIDDM, interstitial lung disease , and BPH admitted with pneumonia. Sepsis secondary to pneumonia --antibiotic course complete (Zosyn 09/06-->09/08; levofloxacin 09/07-->09/12) --tapering steroids, discharge on PO Interstitial lung disease --09/06 CT chest: emphysematous changes and ILD --patient states he follows with Dr. Javier as outpatient Hypoxic respiratory failure --patient not previously dependent on O2; on pre post testing on 09/12 satted 86% at rest and required 6L to achieve 91% with ambulation --will need home O2 --would benefit from pulmonary rehab stay Hypertension --BP stable --continue Toprol XL NIDDM --Novolog sliding scale coverage [place] --Cr 1.5 on admission, now 0.9 Minutes to complete discharge: 35 Discharge Summary Reason For Visit: SEPSIS Current Active Problems Acute respiratory failure with hypoxia (Acute) Pneumonia (Acute) SLE (systemic lupus erythematosus) (Acute) Sepsis (Acute) Condition: Improved - Instructions Referrals: Armin Javier MD [Staff Physician] - 2 Weeks Disposition: [facility] FACILITY - Home Medications Comprehensive Discharge Medication List: Ambulatory Orders Allopurinol 300 mg PO DAILY 06/04/17 Metformin HCl [Metformin HCl ER] 500 mg PO DAILY 06/04/17 Metoprolol Succinate [Toprol Xl] 100 mg PO DAILY 06/04/17 Olmesartan/Amlodipin/Hcthiazid [Ppzimax-Uzivtn-Bisd 40-10-25Mg] 1 each PO DAILY 06/04/17 Tamsulosin HCl [Flomax -] 0.4 mg PO DAILY 06/04/17 Budesonide/Formeterol Fumarate [SYMBICORT 160/4.5mcg -] 2 puff IH BID inhaler 09/14/17 Tiotropium [place] [Spiriva] 1 puff IH DAILY cap 09/14/17 predniSONE [Deltasone -] See Taper PO ASDIR #36 tab 09/14/17 This patient is new to me today: No Emergency Visit: Yes ED Registration Date: 09/07/17 Care time: The patient presented to the Emergency Department on the above date and was hospitalized for further evaluation of their emergent condition. Critical Care patient: No - Discharge Referral Referred to [facility] Med P.C.: No
[2017-09-14] MEDS ORDERED: predniSONE 20 MG TABLET (UD) PO ONE (11:00)
[2017-09-14] MEDS ORDERED: INSULIN (NOVOLOG) ASPART 100 UNITS/ML 10ML VIAL ONE (11:17)
--- NOTE | 2017-09-14 11:44 | PN ---
Progress Note, Physician History of Present Illness: still requiring oxygen 3 l patient did not need o2 at home working with physio - Current Medication List Current Medications: Active Medications Acetaminophen (Tylenol -) 650 mg PO Q6H PRN PRN Reason: FEVER Albuterol Sulfate (Ventolin 0.042trength) -) 1 amp NEB Q6H PRN PRN Reason: SHORT OF BREATH/WHEEZING Albuterol/Ipratropium (Duoneb -) 1 amp NEB RQID [facility] Last Admin: 09/14/17 11:19 Dose: 1 amp Ascorbic Acid (Vitamin C -) 1,500 mg PO Q6HPO [facility] Last Admin: 09/14/17 06:18 Dose: 1,500 mg Budesonide/Formoterol Fumarate (Symbicort 160/4.5mcg -) 2 puff IH BID [facility] Last Admin: 09/14/17 09:32 Dose: 2 puff Heparin Sodium (Porcine) (Heparin -) 5,000 unit SQ TID [facility] Last Admin: 09/14/17 06:18 Dose: 5,000 unit Insulin Aspart (Novolog Vial Sliding Scale -) 1 vial SQ ACHS [facility]; Protocol Last Admin: 09/14/17 11:22 Dose: 4 units Metoprolol Succinate (Toprol Xl -) 100 mg PO DAILY [facility] Last Admin: 09/14/17 09:32 Dose: 100 mg Tamsulosin HCl (Flomax -) 0.4 mg PO DAILY@0830 [facility] Last Admin: 09/14/17 09:33 Dose: 0.4 mg Tiotropium [place] (Spiriva -) 1 puff IH DAILY [facility] Last Admin: 09/14/17 09:32 Dose: 1 puff - Objective Vital Signs: Vital Signs Temperature 98.5 F 09/14/17 09:00 Pulse Rate 76 09/14/17 09:00 Respiratory Rate 20 09/14/17 09:00 Blood Pressure 136/73 09/14/17 09:00 O2 Sat by Pulse Oximetry (%) 98 09/13/17 21:00 Constitutional: Yes: No Distress, Calm Cardiovascular: Yes: Regular Rate and Rhythm Respiratory: Yes: Regular, CTA Bilaterally Gastrointestinal: Yes: Normal Bowel Sounds, Soft Musculoskeletal: Yes: WNL Extremities: Yes: WNL Neurological: Yes: Alert, Oriented Psychiatric: Yes: Alert, Oriented Labs: CBC, BMP 09/11/17 05:30 09/13/17 06:15 INR, PTT INR 1.27 (0.82-1.09) H 09/06/17 16:15 Assessment/Plan (1) Acute respiratory failure with hypoxia Code(s): J96.01 - ACUTE RESPIRATORY FAILURE WITH HYPOXIA (2) Shingles Code(s): B02.9 - ZOSTER WITHOUT COMPLICATIONS Qualifiers: Herpes zoster complications: without complications Qualified Code(s): B02.9 - Zoster without complications (3) Pneumonia Code(s): J18.9 - PNEUMONIA, UNSPECIFIED ORGANISM (4) SLE (systemic lupus erythematosus) Code(s): M32.9 - SYSTEMIC LUPUS ERYTHEMATOSUS, UNSPECIFIED plan off of all abx resp phsyio incentive mary beth rest as per the team
--- NOTE | 2017-09-14 12:24 | PN ---
Progress Note, Physician History of Present Illness: PULMONARY ALERT,NO COMPLAINTS ,-SOB,-COUGH,-CP - Current Medication List Current Medications: Active Medications Acetaminophen (Tylenol -) 650 mg PO Q6H PRN PRN Reason: FEVER Albuterol Sulfate (Ventolin 0.042trength) -) 1 amp NEB Q6H PRN PRN Reason: SHORT OF BREATH/WHEEZING Albuterol/Ipratropium (Duoneb -) 1 amp NEB RQID [facility] Last Admin: 09/14/17 11:19 Dose: 1 amp Ascorbic Acid (Vitamin C -) 1,500 mg PO Q6HPO [facility] Last Admin: 09/14/17 06:18 Dose: 1,500 mg Budesonide/Formoterol Fumarate (Symbicort 160/4.5mcg -) 2 puff IH BID [facility] Last Admin: 09/14/17 09:32 Dose: 2 puff Heparin Sodium (Porcine) (Heparin -) 5,000 unit SQ TID [facility] Last Admin: 09/14/17 06:18 Dose: 5,000 unit Insulin Aspart (Novolog Vial Sliding Scale -) 1 vial SQ ACHS [facility]; Protocol Last Admin: 09/14/17 11:22 Dose: 4 units Metoprolol Succinate (Toprol Xl -) 100 mg PO DAILY [facility] Last Admin: 09/14/17 09:32 Dose: 100 mg Tamsulosin HCl (Flomax -) 0.4 mg PO DAILY@0830 [facility] Last Admin: 09/14/17 09:33 Dose: 0.4 mg Tiotropium [place] (Spiriva -) 1 puff IH DAILY [facility] Last Admin: 09/14/17 09:32 Dose: 1 puff - Objective Vital Signs: Vital Signs Temperature 98.5 F 09/14/17 09:00 Pulse Rate 76 09/14/17 09:00 Respiratory Rate 20 09/14/17 09:00 Blood Pressure 136/73 09/14/17 09:00 O2 Sat by Pulse Oximetry (%) 98 09/13/17 21:00 Constitutional: Yes: Well Nourished, Calm Eyes: Yes: WNL HENT: Yes: WNL Neck: Yes: WNL Cardiovascular: Yes: Regular Rate and Rhythm, S1, S2 Respiratory: Yes: Rales (BILATERAL CRACKLES 1/2 UP) Gastrointestinal: Yes: Normal Bowel Sounds, Soft Extremities: Yes: WNL Edema: No Labs: CBC, BMP 09/11/17 05:30 09/13/17 06:15 INR, PTT INR 1.27 (0.82-1.09) H 09/06/17 16:15 Problem List - Problems (1) Acute respiratory failure with hypoxia Code(s): J96.01 - ACUTE RESPIRATORY FAILURE WITH HYPOXIA (2) Shingles Code(s): B02.9 - ZOSTER WITHOUT COMPLICATIONS Qualifiers: Herpes zoster complications: without complications Qualified Code(s): B02.9 - Zoster without complications (3) Pneumonia Code(s): J18.9 - PNEUMONIA, UNSPECIFIED ORGANISM (4) SLE (systemic lupus erythematosus) Code(s): M32.9 - SYSTEMIC LUPUS ERYTHEMATOSUS, UNSPECIFIED Assessment/Plan ASSESSMENT AND PLAN: Acute on Chronic Hypoxic Respiratory Failure Pneumonia Interstitial Lung Disease HTN DM BPH - steroids - inhaled bronchodilators - O2 to keep Spo2 >90% - DVT prophylaxis - pfts outpatient DR SMART
[2017-09-14 14:17] VITALS: BP 116/66; PULSE 100; TEMP 98.1
--- NOTE | 2017-09-14 16:12 | PN ---
Progress Note (short form) - Note Progress Note: s: no cp sob palps dizzy o: Vital Signs Period Temp Pulse Resp BP Sys/Paul Pulse Ox Last 24 Hr 97.8 F-98.9 F 71-100 18-20 115-136/63-80 96-98 nad no jvd rrr s1s2 no mrg cta bl nl eff aaox3 no le e/c/c no jaundice diaphoresis Home Medications Medication Instructions Recorded Allopurinol 300 mg PO DAILY 06/04/17 Metformin HCl [Metformin HCl ER] 500 mg PO DAILY 06/04/17 Metoprolol Succinate [Toprol Xl] 100 mg PO DAILY 06/04/17 Olmesartan/Amlodipin/Hcthiazid 1 each PO DAILY 06/04/17 [Osxejlg-Eyvoqf-Cizq 40-10-25Mg] Tamsulosin HCl [Flomax -] 0.4 mg PO DAILY 06/04/17 Budesonide/Formeterol Fumarate 2 puff IH BID inhaler 09/14/17 [SYMBICORT 160/4.5mcg -] Tiotropium [place] [Spiriva] 1 puff IH DAILY cap 09/14/17 predniSONE [Deltasone -] See Taper PO ASDIR #36 tab 09/14/17 CBC, BMP 09/11/17 05:30 09/13/17 06:15 Assessment/Plan 66M HTN, DM II, dormant lupus, interstitial lung disease admitted for sepsis, PNA with PVCs, tachycardia PVCs - improved on bb - echo report reviewed from 09/09, normal LV/RV size and function, Estimated PASP 30-40mmHg, No significant valvular abnormaltiy - cont bb Tachycardia - likely in setting of sepsis - Now restarted Metoprolol Succ 100mg daily, stable sepsis/PNA/advanced interstitial lung disease - sxs improved HTN -cont home bb cardiac dsouza stable for dc
== END 2017-09-14 15:56 | DRG 871 ==
LOC: JER 14:37 → JERBED 09-07 06:11 → JICU 09-07 20:37 → J8W 09-12 17:00
PROVIDERS: ADMIT Internal Medicine; ATTEND Nurse Practitioner Acute Care
PROC: 5A09357 Assistance with Respiratory Ventilation, Less than 24 Consecutive Hours, Continuous Positive Airway Pressure (ICD-10-PCS; principal; 2017-09-07)
DX: A41.9 Sepsis, unspecified organism (principal); J96.01 Acute respiratory failure with hypoxia; J18.9 Pneumonia, unspecified organism; B02.23 Postherpetic polyneuropathy; N17.9 Acute kidney failure, unspecified; J84.9 Interstitial pulmonary disease, unspecified; M32.9 Systemic lupus erythematosus, unspecified; I10 Essential (primary) hypertension; E11.9 Type 2 diabetes mellitus without complications; R00.0 Tachycardia, unspecified; N40.0 Benign prostatic hyperplasia without lower urinary tract symptoms; M10.9 Gout, unspecified; D64.9 Anemia, unspecified; R59.0 Localized enlarged lymph nodes; D69.6 Thrombocytopenia, unspecified; B02.9 Zoster without complications; J98.4 Other disorders of lung; J47.9 Bronchiectasis, uncomplicated; M54.5 Low back pain; I49.3 Ventricular premature depolarization
CPT/HCPCS: 36415; 36600; 71045-TC-FY; 71250-TC; 72132-TC; 74150-TC; 80048; 80053; 80061; 81003; 81015; 82550; 82803; 82962; 82977; 83036; 83516; 83605; 83721; 83735; 84100; 84484; 85025; 85610; 85651; 85730; 86038; 86162; 86225; 86480; 87040; 87070; 87081; 87086; 87205; 87389; 87899; 93005; 93010; 93306-TC; 94010; 94640; 94660; 94761; 97116-GP; 97161-GP; 99284-25; J0131; J1644; J3480; J7030; J7620

== ENCOUNTER 2017-11-21 10:41 | Inpatient (IN) | payer OTHER ==
[2017-11-21] MEDS ORDERED: SODIUM CHLORIDE 0.9% 1000 ML INFUS.BAG IV STA (10:53)
[2017-11-21] MEDS ORDERED: VANCOMYCIN 1,500 MG in DEXTROSE 5%-WATER - 250 ML IVPB ONE (11:37)
[2017-11-21] MEDS ORDERED: PIPERACILLIN/TAZOB 4.5 GM 4.5 GM in DEXTROSE 5%-WATER 100 ML IVPB ONE (11:37)
[2017-11-21] MEDS ORDERED: ALBUTEROL SO4 2.5/IPRATROPIUM 0.5 INH SOL 3 ML VIAL.NEB. NEB ONE ×5 (11:38→16:22)
--- NOTE | 2017-11-21 11:40 | PDOC ---
History of Present Illness <Thien Daniel - Last Filed: 11/21/17 12:57> - General History Source: Patient, Family Exam Limitations: No Limitations - History of Present Illness Initial Comments: 11/21/17 12:28 Mr Simpson 67 YOM, with a significant past medical history of Chronic Hypoxic Respiratory Failure, pneumonia, SLE /Lupus, ILD on 2L O2, HTN, DM2, BPH, who presents to the emergency department with, shortness of breath and fever. As per patient, his symptoms onset last night initially as productive cough with white sputum ongoing for 3 days. Patients daughter notes that when he was walking today his oxygen saturation dropped to 71% and when he was at rest it was between 77-84%, the lowest at baseline his saturation is 91%. The daughter also endorses a fever today with Tmax of 99 degrees Fahrenheit. Daughter notes similar episode in August which he was admitted for. He denies any recent hemoptysis. He denies any recent headache or dizziness. He denies any recent nausea, vomit, diarrhea or constipation. He denies any recent chest pain. He denies any recent dysuria, frequency, urgency or hematuria. Allergies: NKA Past surgical history: None reported. Primary Care Physician: Dr. Javier <Antonella Strange - Last Filed: 11/21/17 13:37> - General Chief Complaint: SIRS, Suspected/Possible Stated Complaint: SOB Time Seen by Provider: 11/21/17 11:09 Past History <Thien Daniel - Last Filed: 11/21/17 12:57> - Past Medical History COPD: No (idiopathic pulmonary fibrosis) Diabetes: Yes HTN: Yes - Immunization History Immunization Up to Date: No - Suicide/Smoking/Psychosocial Hx Smoking History: Never smoked Have you smoked in the past 12 months: No Hx Alcohol Use: No Drug/Substance Use Hx: No Substance Use Type: None <Antonella Strange - Last Filed: 11/21/17 13:37> - Past Medical History Allergies/Adverse Reactions: Allergies Allergy/AdvReac Type Severity Reaction Status Date / Time No Known Allergies Allergy Verified 11/21/17 10:43 Home Medications: Ambulatory Orders Allopurinol 300 mg PO DAILY 06/04/17 Metformin HCl [Metformin HCl ER] 500 mg PO DAILY 06/04/17 Metoprolol Succinate [Toprol Xl] 100 mg PO DAILY 06/04/17 Olmesartan/Amlodipin/Hcthiazid [Jauedth-Rdudog-Ebeg 40-10-25Mg] 1 each PO DAILY 06/04/17 Tamsulosin HCl [Flomax -] 0.4 mg PO DAILY 06/04/17 Budesonide/Formeterol Fumarate [SYMBICORT 160/4.5mcg -] 2 puff IH BID inhaler 09/14/17 Tiotropium [place] [Spiriva] 1 puff IH DAILY cap 09/14/17 predniSONE [Deltasone -] See Taper PO ASDIR #36 tab 09/14/17 Review of Systems - Review of Systems Able to Perform ROS?: Yes Comments:: 11/21/17 12:28 +GENERAL/CONSTITUTIONAL: +Fever. No chills. No weakness. no sweats. HEAD, EYES, EARS, NOSE AND THROAT: No change in vision or hearing. No ear pain or discharge. No sore throat or mouth pain. No difficulty swallowing. No congestion. CARDIOVASCULAR: No chest pain or palpitations, syncope or edema. +RESPIRATORY: +SOB. +Cough. No wheezing, or hemoptysis. GASTROINTESTINAL No nausea/vomiting. No diarrhea or constipation. No bloody stools. GENITOURINARY: No hematuria, dysuria, frequency, urgency or other changes. MUSCULOSKELETAL: No joint or muscle swelling or pain. No neck or back pain. SKIN: No rash or changes in skin color or lesions. NEUROLOGIC: No headache, no LOC or dizziness HEMATOLOGIC/LYMPHATIC: No anemia, easy bruising/bleeding, or history of blood clots. ALLERGIC/IMMUNOLOGIC: No allergies All other systems reviewed and negative, or as documented in HPI. <Antonella Strange - Last Filed: 11/21/17 13:37> *Physical Exam - Vital Signs Last Vital Signs Temp Pulse Resp BP Pulse Ox 101.5 F H 103 H 32 H 123/69 99 11/21/17 11:41 11/21/17 12:57 11/21/17 12:57 11/21/17 12:57 11/21/17 12:57 <Thien Daniel - Last Filed: 11/21/17 12:57> - Vital Signs Last Vital Signs Temp Pulse Resp BP Pulse Ox 99.0 F 107 H 37 H 114/63 96 11/21/17 10:43 11/21/17 11:33 11/21/17 11:33 11/21/17 11:33 11/21/17 11:33 - Physical Exam Comments: 11/21/17 12:28 General: +Tachypneic but, speaking in full sentences. In Moderate respiratory distress 2/2 tachypnea. awake and alert HEENT: NCAT, PERRL, EOMI, clear conjunctiva, anicteric, moist mucus membranes, clear oropharynx, no oral lesions.. Neck: neck supple, FROM. no JVD. Resp: +Right basilar crackles. Tachypneic and moderate respiratory distress. CVS: +Tachycardic, no murmurs, 2+ peripheral pulses throughout, no peripheral edema Abdomen: soft, NTND, no peritoneal signs. Back: nontender, normal inspection and ROM MSK: no edema, GARG x4, ROM intact. No clubbing or cyanosis. normal bulk and tone. Neuro: alert, oriented appropriately; no focal neurologic deficits Skin: warm and well perfused, cap refill <2 sec, normal color <Antonella Strange - Last Filed: 11/21/17 13:37> Heart Score/ECG Review - ECG Impressions Comment:: 11/21/17 12:16 EKG sinus tachycardia, no interval abnormalities, narrow QRS, ST and T wave segments and morphology normal. Nonspecific T wave abnormalities. Qwaves in inferior leads. 11/21/17 12:23 <Antonella Strange - Last Filed: 11/21/17 13:37> ED Treatment Course - LABORATORY CBC & Chemistry Diagram: 11/21/17 11:26 11/21/17 11:00 - ADDITIONAL ORDERS Additional order review: Laboratory Results 11/21/17 11/21/17 11/21/17 11:38 11:26 11:26 PT with INR 13.10 H INR 1.11 H PTT (Actin FS) 33.8 VBG pH 7.40 POC VBG pCO2 43.9 D POC VBG pO2 34.7 Mixed VBG HCO3 26.9 H Sodium Potassium Chloride Carbon Dioxide Anion Gap BUN Creatinine Creat Clearance w eGFR Random Glucose Lactic Acid 1.8 Calcium Total Bilirubin AST ALT Alkaline Phosphatase Troponin I Total Protein Albumin 11/21/17 11/21/17 11:00 11:00 PT with INR INR PTT (Actin FS) VBG pH POC VBG pCO2 POC VBG pO2 Mixed VBG HCO3 Sodium 139 Potassium 4.0 Chloride 106 Carbon Dioxide 23 Anion Gap 10 BUN 16 Creatinine 1.0 Creat Clearance w eGFR > 60 Random Glucose 139 H Lactic Acid Calcium 9.0 Total Bilirubin 1.1 H AST 15 ALT 13 Alkaline Phosphatase 71 Troponin I 0.03 Total Protein 6.6 Albumin 3.3 L 11/21/17 11:26 RBC 4.38 MCV 93.3 MCHC 32.2 RDW 15.2 MPV 8.2 Neutrophils % 88.1 H Lymphocytes % 3.1 L D Monocytes % 6.8 Eosinophils % 1.1 D Basophils % 0.9 - Medications Given in the ED: ED Medications Discontinued Medications Generic Name Dose Route Start Last Admin Trade Name Freq PRN Reason Stop Dose Admin Acetaminophen 1,000 mg 11/21/17 11:59 11/21/17 12:36 Ofirmev Injection - IVPB 11/21/17 12:00 1,000 mg ONCE ONE Administration Albuterol/Ipratropium 1 amp 11/21/17 11:38 11/21/17 11:57 Duoneb - NEB 11/21/17 11:39 1 amp ONCE ONE Administration Albuterol/Ipratropium 1 amp 11/21/17 11:38 11/21/17 12:18 Duoneb - NEB 11/21/17 11:39 1 amp ONCE ONE Administration Albuterol/Ipratropium 1 amp 11/21/17 11:38 11/21/17 11:59 Duoneb - NEB 11/21/17 11:39 1 amp ONCE ONE Administration Piperacillin Sod/Tazobactam 100 mls @ 200 mls/hr 11/21/17 11:37 11/21/17 12: 18 Sod 4.5 gm/ Dextrose IVPB 11/21/17 12:06 200 mls/hr ONCE ONE Administration Protocol Sodium Chloride 2,449 ml 11/21/17 10:53 11/21/17 11:52 Normal Saline - 30 ml/kg (2449 ml) 11/21/17 10:54 2,449 ml IV Administration ONCE STA <Thien Daniel - Last Filed: 11/21/17 12:57> - LABORATORY CBC & Chemistry Diagram: 11/21/17 11:26 11/21/17 11:00 - RADIOLOGY Radiology Studies Ordered: Category Date Time Status CHEST X-RAY PORTABLE* [RAD] Stat Radiology 11/21/17 10:51 Taken <Antonella Strange - Last Filed: 11/21/17 13:37> Medical Decision Making - Medical Decision Making 11/21/17 12:[address] Merino for admission, awaiting call back. <Thien Daniel - Last Filed: 11/21/17 12:57> - Medical Decision Making 11/21/17 11:39 Simpson 67 YOM w/history of Chronic Hypoxic Respiratory Failure, pneumonia, SLE/Lupus, ILD on 2L O2, HTN, DM2, BPH presenting with acute worsening of shortness of breath since last night. Associated with productive white cough x 3 -4 days, increasing SOB with mild exertion. +subjective fevers and malaise. This morning, noted to be hypoxic in the 70s with mild exertional effort and walking. Vital signs reviewed, +tachycardia, fever, tachypnea and hypoxia to 70s, immediately placed on NRB O2. Infection Plan: CBC, CMP, UA, urine cx, blood cx, lactic acid, ECG, trop, CXR. resuscitative IVF, antipyretics, analgesia, IV abx zosyn and vancomycin. Prior notes reviewed, including admissions, discharges and consultations. laboratory results and imaging reviewed, basic labs and lytes wnl, notable for mild leukocytosis. lactic normal. CXR with worse interstitial markings, prior ILD which is known. blood and sputum cultures pending. ED course: increased O2 to NRB for now, with improvement. Duonebs x3, titrating off high o2 requirements. IV abx with HCAP coverage given ILD and chronic lung infection/disease, zosyn and vancomycin for empiric coverage. 1215pm - on reeval, remains hypoxic to 83-85% on NRB and active duonebs, still increased WOB. trial of Bipap for WOB and persistent hypoxia. ICU consultation with Dr. Omer and team, will accept to ICU for higher level of care. Dispo: Admit to Medical ICU for acute on chronic respiratory failure and pneumonia, continuous pulse ox and tele monitoring.. Discussed results and management plan with pt and family member at bedside, agree with impression and plan admit to Dr. Merino, as Dr. Antonette solis does not admit to hospitalist when called to [facility]. 11/21/17 13:36 <Antonella Strange - Last Filed: 11/21/17 13:37> *DC/Admit/Observation/Transfer - Attestations Scribe Attestion: 11/21/17 12:58 Documentation prepared by Thien Daniel, acting as medical laboratory technologist for Antonella Strange MD. <Thien Daniel - Last Filed: 11/21/17 12:57> - Discharge Dispostion Decision to Admit order: Yes Decision to Admit order Date/Time: 11/21/17 13:37 Decision to Admit Order Category Date Time Status Decision to Admit to Hospital Routine Admission 11/21/17 13:33 Ordered - Attestations Physician Attestion: 11/21/17 12:27 I, Antonella Strange MD, attest that this document has been prepared under my direction and personally reviewed by me in its entirety. I further attest, that it accurately reflects all work, treatment, procedures and medical decision -making performed by me. <Antonella Strange - Last Filed: 11/21/17 13:37> Diagnosis at time of Disposition: Acute respiratory failure with hypoxia, Pneumonia - Discharge Dispostion Condition at time of disposition: Guarded - Referrals Referrals: Sylvia Jacobs MD [Primary Care Provider] - - Patient Instructions - Post Discharge Activity
[2017-11-21 11:54] LABS: BASO % 0.9 % (0-2.0); EOS % 1.1 % (0-4.5); HEMATOCRIT 40.8 % (35.4-49); HEMOGLOBIN 13.2 GM/dL (11.7-16.9); LYMPH % 3.1 % (8-40); MCH 30.1 pg (25.7-33.7); MCHC 32.2 g/dl (32.0-35.9); MEAN CELL VOLUME 93.3 fl (80-96); MEAN PLT VOLUME 8.2 fl (7.5-11.1); MONO % 6.8 % (3.8-10.2); NEUT % 88.1 % (42.8-82.8); PLATELET COUNT 149 K/MM3 (134-434); RBC 4.38 M/mm3 (4.00-5.60); RDW 15.2 % (11.9-15.9); WHITE BLOOD COUNT 13.6 K/mm3 (4.0-10.0)
[2017-11-21 11:57] LABS: VENOUS PC02 43.9 mmHg (38-52); VENOUS PH 7.4 (7.32-7.42); VENOUS PO2 34.7 mmHg (28-48)
[2017-11-21] MEDS ORDERED: ACETAMINOPHEN 1000 MG/100 ML VIAL (NON FORMULARY) IVPB ONE (11:59)
[2017-11-21] MEDS ORDERED: PIPERACILLIN/TAZOB 4.5 GM 4.5 GM/100 ML BAG IVPB ONE (12:01)
[2017-11-21 12:06] LABS: INR 1.11 (0.83-1.09); PROTHROMBIN TIME (PATIENT) 13.1 SEC (9.7-13.0)
[2017-11-21 12:09] LABS: ACTIVATED PTT 33.8 SECONDS (25.2-36.5)
[2017-11-21] MEDS ORDERED: ACETAMINOPHEN INJECTION 100 ML IVPB ONE (12:19)
[2017-11-21] MEDS ORDERED: VANCOMYCIN 1,500 MG in DEXTROSE 5%-WATER - 500 ML IVPB ONE (12:30)
[2017-11-21 12:32] LABS: ALBUMIN 3.3 g/dl (3.4-5.0); ALK PHOS 71 U/L (45-117); ANION GAP 10 MMOL/L (8-16); BILIRUBIN,TOTAL 1.1 mg/dL (0.2-1); BLOOD UREA NITROGEN 16 mg/dL (7-18); CHLORIDE 106 mmol/L (98-107); CO2 23 mmol/L (21-32); GLUCOSE,RANDOM 139 mg/dL (74-106); SGOT/AST 15 U/L (15-37); SGPT/ALT 13 U/L (13-61); SODIUM 139 mmol/L (136-145); TOT PROT 6.6 g/dl (6.4-8.2)
--- NOTE | 2017-11-21 13:57 | CONSULT ---
Consultation: REQUESTING PROVIDER: Dr Antonella Strange CONSULT REQUEST: We have been asked to medically evaluate this patient for admission to the ICU. HISTORY OF PRESENT ILLNESS: Simba Simpson is a 67yo man with a PMH of ILD, HTN, DM, BPH who presented to the ED today with worsening SOB since yesterday. According to Mr Simpson and his daughter, present in the ED, he was hospitalized with pneumonia in August and attended inpatient pulmonary rehab after discharge. Since that time he has been doing well at home. He uses 2L by [place] supplemental O2 REVIEW OF SYSTEMS: General: No fevers, no chills, no weight or appetite change, no malaise HEENT: No changes in vision, no changes in hearing, no congestion, no sore throat CV: No chest pain, no palpitations, no LE edema Pulm: No SOB, no cough, no wheezing GI: No nausea or vomiting, no change in bowel habits, no melena : No frequency, no urgency, no dysuria Musc: No back pain, no joint swelling, no recent injury Skin: No rash, no lesions, no erythema Endo: No excessive thirst, no heat/cold intolerance Heme: No unusual bruising or bleeding, no swollen glands Neuro: No syncope, no numbness/tingling, no focal weakness Vasc: No claudication Psych: No recent change in mood, no SI or HI PHYSICAL EXAMINATION Vital Signs - 24 hr 11/21/17 11/21/17 11/21/17 10:43 11:33 11:41 Temperature 99.0 F 101.5 F H Pulse Rate 128 H Pulse Rate [ 107 H Apical] Respiratory 18 37 H Rate Blood Pressure 116/65 Blood Pressure 114/63 [Right Arm] O2 Sat by Pulse 78 L 96 Oximetry (%) 11/21/17 11/21/17 12:57 13:00 Temperature Pulse Rate 110 H Pulse Rate [ 103 H Apical] Respiratory 32 H Rate Blood Pressure Blood Pressure 123/69 [Right Arm] O2 Sat by Pulse 99 98 Oximetry (%) General: Comfortable, able to converse HEENT: PERRL, EOMI, MMM, voice normal Cards: RRR, no murmur appreciated Pulm: Tachypnic on biPAP. Crackles at b/l lung bases Abd: Soft, nontender, nondistended Ext: Atraumatic. No LE edema. ROM intact. Strength equal bilaterally Vasc: Extremities WWP. Skin: Normal color, no rashes or lesions Neuro: A&Ox3, CN grossly intact, normal speech, motor/sensory grossly intact and symmetric Psych: Mood appropriate to situation Laboratory Results - last 24 hr 11/21/17 11/21/17 11/21/17 11:00 11:00 11:26 WBC 13.6 H RBC 4.38 Hgb 13.2 Hct 40.8 MCV 93.3 MCH 30.1 MCHC 32.2 RDW 15.2 Plt Count 149 MPV 8.2 Absolute Neuts (auto) 12.0 H Neutrophils % 88.1 H Lymphocytes % 3.1 L D Monocytes % 6.8 Eosinophils % 1.1 D Basophils % 0.9 Nucleated RBC % 0 PT with INR INR PTT (Actin FS) VBG pH POC VBG pCO2 POC VBG pO2 Mixed VBG HCO3 Sodium 139 Potassium 4.0 Chloride 106 Carbon Dioxide 23 Anion Gap 10 BUN 16 Creatinine 1.0 Creat Clearance w eGFR > 60 Random Glucose 139 H Lactic Acid Calcium 9.0 Total Bilirubin 1.1 H AST 15 ALT 13 Alkaline Phosphatase 71 Troponin I 0.03 Total Protein 6.6 Albumin 3.3 L 11/21/17 11/21/17 11/21/17 11:26 11:26 11:38 WBC RBC Hgb Hct MCV MCH MCHC RDW Plt Count MPV Absolute Neuts (auto) Neutrophils % Lymphocytes % Monocytes % Eosinophils % Basophils % Nucleated RBC % PT with INR 13.10 H INR 1.11 H PTT (Actin FS) 33.8 VBG pH 7.40 POC VBG pCO2 43.9 D POC VBG pO2 34.7 Mixed VBG HCO3 26.9 H Sodium Potassium Chloride Carbon Dioxide Anion Gap BUN Creatinine Creat Clearance w eGFR Random Glucose Lactic Acid 1.8 Calcium Total Bilirubin AST ALT Alkaline Phosphatase Troponin I Total Protein Albumin Active Medications Generic Name Dose Route Start Last Admin Trade Name Freq PRN Reason Stop Dose Admin Acetaminophen 650 mg 11/21/17 13:23 Tylenol - PO Q6H PRN PAIN OR FEVER Allopurinol 300 mg 11/22/17 10:00 Zyloprim - PO DAILY VANITA Amlodipine Besylate 10 mg 11/22/17 10:00 Norvasc - PO DAILY VANITA Budesonide/Formoterol Fumarate 2 puff 11/21/17 22:00 Symbicort 160/4.5mcg - IH BID VANITA Chlorhexidine Gluconate 1 applic 11/21/17 22:00 Hibiclens For Decolonization - TP HS [facility] Enoxaparin Sodium 40 mg 11/22/17 10:00 Lovenox - SQ DAILY VANITA Hydrochlorothiazide 25 mg 11/22/17 10:00 Hctz - PO DAILY VANITA Vancomycin HCl 1,500 mg/ 500 mls @ 250 mls/hr 11/21/17 12:30 11/21/17 12:54 Dextrose IVPB 11/21/17 14:29 250 mls/hr ONCE ONE Administration Protocol Sodium Chloride 1,000 mls @ 83 mls/hr 11/21/17 13:30 Normal Saline - IV ASDIR [facility] Insulin Aspart 0 vial 11/21/17 16:30 Novolog Vial Sliding Scale - SQ ACHS [facility] Protocol Losartan Potassium 100 mg 11/22/17 10:00 Cozaar - PO DAILY VANITA Metoprolol Succinate 100 mg 11/22/17 10:00 Toprol Xl - PO DAILY [facility] Mupirocin 1 applic 11/21/17 22:00 Bactroban Ointment (For Decolonization) - NS 11/26/17 21:59 BID VANITA Tamsulosin HCl 0.4 mg 11/22/17 08:30 Flomax - PO DAILY@0830 [facility] Tiotropium [place] 2 puff 11/22/17 10:00 Spiriva Respimat IH DAILY [facility] ASSESSMENT/PLAN: Simba Simpson is a 67yo man with a PMH of ILD of unknown etiology, HTN, DM and BPH who presents with acute on chronic hypoxic respiratory failure likely secondary to pneumonia. Neuro: - No issues, A&O. CV: - h/o HTN - Continue home metoprolol, amlodipine, hydrochlorothiazide. Replacing olmesartan with losartan. Pulm: - Interstitial lung disease - Has been off home meds for 2 weeks. Restart home symbicort, tiotropium - Flu swab sent - BiPAP as needed. Transition to venturi mask as tolerated - IS 10x per hour Heme: - No issues - Monitor daily CBC GI: - NPO while using NIPPV - Transition to diabetic diet when appropriate Renal: - No issues ID: - Pneumonia on CXR - Abx started in the ED - Continue vanc/zosyn Endo: - No issues Psych: - No issues Musc: - OOB as tolerated PPx: - Moderate DVT risk. SCD's and lovenox - No indication for GI ppx FEN: - NPO - NS@83 - Replete lytes PRN Dispo: - Monitor in ICU - To floor when off NIPPV - will need telemetry if tolerating supplemental oxygen by mask Seen and discussed with Dr Omer. Wanda Bell PGY1 Visit type - Emergency Visit Emergency Visit: Yes ED Registration Date: 11/21/17 Care time: The patient presented to the Emergency Department on the above date and was hospitalized for further evaluation of their emergent condition. - New Patient This patient is new to me today: Yes Date on this admission: 11/21/17 - Critical Care Critical Care patient: Yes Total Critical Care Time (in minutes): 45 Critical Care Statement: The care of this patient involved high complexity decision making to prevent further life threatening deterioration of the patient 's condition and/or to evaluate & treat vital organ system(s) failure or risk of failure.
--- NOTE | 2017-11-21 14:41 | PN ---
Teaching Attending Note Name of Resident: Wanda Bell ATTENDING PHYSICIAN STATEMENT I saw and evaluated the patient. I reviewed the resident's note and discussed the case with the resident. I agree with the resident's findings and plan as documented. SUBJECTIVE: Pt seen and examined in the ER. Briefly, 67yo male with h/o interstitial lung disease, chronic hypoxic respiratory failure, HTN, DM, BPH who presents with worsening shortness of breath. No chest pain but with a cough productive of white sputum. +subjective fevers and chills. Noted to be hypoxic to 70s at home on O2. Found to have a left sided infiltrate on CXR, started on antibiotics and BiPAP with improvement. OBJECTIVE: Vital Signs Period Temp Pulse Resp BP Sys/Paul Pulse Ox Last 24 Hr 99.0 F-101.5 F 89-128 18-37 114-123/63-69 78-99 Gen: mildly tachypneic at rest Heart: RRR Lung: bibasilar rales R>L Abd: soft, nontender Ext: no edema CBC, BMP 11/21/17 11:26 11/21/17 11:00 Active Medications Acetaminophen (Tylenol -) 650 mg PO Q6H PRN PRN Reason: PAIN OR FEVER Allopurinol (Zyloprim -) 300 mg PO DAILY VANITA Amlodipine Besylate (Norvasc -) 10 mg PO DAILY VANITA Budesonide/Formoterol Fumarate (Symbicort 160/4.5mcg -) 2 puff IH BID VANITA Chlorhexidine Gluconate (Hibiclens For Decolonization -) 1 applic TP HS VANITA Enoxaparin Sodium (Lovenox -) 40 mg SQ DAILY VANITA Hydrochlorothiazide (Hctz -) 25 mg PO DAILY VANITA Sodium Chloride (Normal Saline -) 1,000 mls @ 83 mls/hr IV ASDIR VANITA Insulin Aspart (Novolog Vial Sliding Scale -) 0 vial SQ ACHS VANITA; Protocol Losartan Potassium (Cozaar -) 100 mg PO DAILY VANITA Metoprolol Succinate (Toprol Xl -) 100 mg PO DAILY VANITA Mupirocin (Bactroban Ointment (For Decolonization) -) 1 applic NS BID VANITA Stop: 11/26/17 21:59 Tamsulosin HCl (Flomax -) 0.4 mg PO DAILY@0830 VANITA Tiotropium [place] (Spiriva Respimat) 2 puff IH DAILY VANITA ASSESSMENT AND PLAN: Acute on Chronic Hypoxic Respiratory Failure Pneumonia Sepsis Interstitial Lung Disease HTN DM BPH - IV antibiotics - f/u cultures - empiric medrol - inhaled bronchodilators - O2 to keep SpO2 >90% - BiPAP to assist in work of breathing - placed pt on 50% ventimask and pt denies shortness of breath and is saturating well although more tachypneic - can monitor on floor with pulse oximetry monitoring, will follow with you - please call if any change in clinical condition Thank you for this consult Shailesh Omer MD
[2017-11-21] MEDS: methylPREDNISolone NA SUCC 40 MG/1 ML VIAL IVPUSH SCH ×2 (15:34→18:09)
[2017-11-21] MEDS: SODIUM CHLORIDE 1,000 ML IV SCH (15:34)
[2017-11-21] MEDS: ALBUTEROL SO4 2.5/IPRATROPIUM 0.5 INH SOL 3 ML VIAL.NEB. NEB SCH ×2 (16:25→21:18)
[2017-11-21] MEDS: INSULIN SLIDING SCALE (NOVOLOG) 1 VIAL SQ SCH ×2 (16:51→23:18)
--- NOTE | 2017-11-21 18:30 | HP ---
Admitting History and Physical - Primary Care Physician PCP: Deandre Merino - Admission History of Present Illness: 67 YOM, with a significant past medical history of Chronic Hypoxic Respiratory Failure, pneumonia, SLE /Lupus, ILD on 2L O2, HTN, DM2, BPH, who presents to the emergency department with, shortness of breath and fever. As per patient, his symptoms onset last night initially as productive cough with white sputum ongoing for 3 days. Patients daughter notes that when he was walking today his oxygen saturation dropped to 71% and when he was at rest it was between 77-84%, the lowest at baseline his saturation is 91%. The daughter also endorses a fever today with Tmax of 99 degrees Fahrenheit. Daughter notes similar episode in August which he was admitted for. - Past Medical History Cardiovascular: Yes: HTN Rheumatology: Yes: Lupus Endocrine: Yes: Diabetes Mellitus - Smoking History Smoking history: Never smoked Have you smoked in the past 12 months: No - Alcohol/Substance Use Hx Alcohol Use: No Home Medications - Allergies Allergies/Adverse Reactions: Allergies Allergy/AdvReac Type Severity Reaction Status Date / Time No Known Allergies Allergy Verified 11/21/17 10:43 - Home Medications Home Medications: Ambulatory Orders Allopurinol 300 mg PO DAILY 06/04/17 Metformin HCl [Metformin HCl ER] 500 mg PO DAILY 06/04/17 Metoprolol Succinate [Toprol Xl] 100 mg PO DAILY 06/04/17 Olmesartan/Amlodipin/Hcthiazid [Kjujjwq-Qrdepg-Snyx 40-10-25Mg] 1 each PO DAILY 06/04/17 Tamsulosin HCl [Flomax -] 0.4 mg PO DAILY 06/04/17 Budesonide/Formeterol Fumarate [SYMBICORT 160/4.5mcg -] 2 puff IH BID inhaler 09/14/17 Tiotropium [place] [Spiriva] 1 puff IH DAILY cap 09/14/17 Family Disease History - Family Disease History Family Disease History: Other: Sister (His sister had lupus.) Physical Examination Vital Signs: Vital Signs Temperature 98.7 F 11/21/17 15:50 Pulse Rate 77 11/21/17 15:03 Respiratory Rate 30 H 11/21/17 15:03 Blood Pressure 102/65 11/21/17 15:03 O2 Sat by Pulse Oximetry (%) 95 11/21/17 17:55 Constitutional: Yes: Calm HENT: Yes: Atraumatic Neck: Yes: Supple Cardiovascular: Yes: Regular Rate and Rhythm Respiratory: Yes: Rhonchi, Wheezes Gastrointestinal: Yes: Normal Bowel Sounds Extremities: Yes: WNL Neurological: Yes: Alert, Oriented Labs: CBC, BMP 11/21/17 11:26 11/21/17 11:00 Imaging - Results Cat Scan: Report Reviewed Problem List - Problems (1) Acute respiratory failure with hypoxia Assessment/Plan: on bipap doing better Code(s): J96.01 - ACUTE RESPIRATORY FAILURE WITH HYPOXIA (2) Pneumonia Assessment/Plan: on iv abx duo nebs bcxs sent Code(s): J18.9 - PNEUMONIA, UNSPECIFIED ORGANISM (3) SLE (systemic lupus erythematosus) Code(s): M32.9 - SYSTEMIC LUPUS ERYTHEMATOSUS, UNSPECIFIED (4) Sepsis Assessment/Plan: on abx ivf if needed bcxs and u cxs sent Code(s): A41.9 - SEPSIS, UNSPECIFIED ORGANISM Assessment/Plan Laboratory Tests 11/21/17 11/21/17 11/21/17 11:00 11:00 11:26 WBC 13.6 H RBC 4.38 Hgb 13.2 Hct 40.8 MCV 93.3 MCH 30.1 MCHC 32.2 RDW 15.2 Plt Count 149 MPV 8.2 Absolute Neuts (auto) 12.0 H Neutrophils % 88.1 H Lymphocytes % 3.1 L D Monocytes % 6.8 Eosinophils % 1.1 D Basophils % 0.9 Nucleated RBC % 0 PT with INR INR PTT (Actin FS) VBG pH POC VBG pCO2 POC VBG pO2 Mixed VBG HCO3 Sodium 139 Potassium 4.0 Chloride 106 Carbon Dioxide 23 Anion Gap 10 BUN 16 Creatinine 1.0 Creat Clearance w eGFR > 60 POC Glucometer Random Glucose 139 H Lactic Acid Calcium 9.0 Total Bilirubin 1.1 H AST 15 ALT 13 Alkaline Phosphatase 71 Troponin I 0.03 Total Protein 6.6 Albumin 3.3 L 11/21/17 11/21/17 11/21/17 11:26 11:26 11:38 WBC RBC Hgb Hct MCV MCH MCHC RDW Plt Count MPV Absolute Neuts (auto) Neutrophils % Lymphocytes % Monocytes % Eosinophils % Basophils % Nucleated RBC % PT with INR 13.10 H INR 1.11 H PTT (Actin FS) 33.8 VBG pH 7.40 POC VBG pCO2 43.9 D POC VBG pO2 34.7 Mixed VBG HCO3 26.9 H Sodium Potassium Chloride Carbon Dioxide Anion Gap BUN Creatinine Creat Clearance w eGFR POC Glucometer Random Glucose Lactic Acid 1.8 Calcium Total Bilirubin AST ALT Alkaline Phosphatase Troponin I Total Protein Albumin 11/21/17 16:48 WBC RBC Hgb Hct MCV MCH MCHC RDW Plt Count MPV Absolute Neuts (auto) Neutrophils % Lymphocytes % Monocytes % Eosinophils % Basophils % Nucleated RBC % PT with INR INR PTT (Actin FS) VBG pH POC VBG pCO2 POC VBG pO2 Mixed VBG HCO3 Sodium Potassium Chloride Carbon Dioxide Anion Gap BUN Creatinine Creat Clearance w eGFR POC Glucometer [id number] Random Glucose Lactic Acid Calcium Total Bilirubin AST ALT Alkaline Phosphatase Troponin I Total Protein Albumin Active Medications Generic Name Dose Route Start Last Admin Trade Name Freq PRN Reason Stop Dose Admin Acetaminophen 650 mg 11/21/17 13:23 Tylenol - PO Q6H PRN PAIN OR FEVER Albuterol Sulfate 1 amp 11/21/17 14:42 Ventolin 0.083% Nebulizer Soln - NEB Q4H PRN SHORT OF BREATH/WHEEZING Albuterol/Ipratropium 1 amp 11/21/17 16:00 11/21/17 16:25 Duoneb - NEB 1 amp RQID [facility] Administration Allopurinol 300 mg 11/22/17 10:00 Zyloprim - PO DAILY [facility] Amlodipine Besylate 10 mg 11/22/17 10:00 Norvasc - PO DAILY [facility] Budesonide/Formoterol Fumarate 2 puff 11/21/17 22:00 Symbicort 160/4.5mcg - IH BID [facility] Enoxaparin Sodium 40 mg 11/22/17 10:00 Lovenox - SQ DAILY [facility] Hydrochlorothiazide 25 mg 11/22/17 10:00 Hctz - PO DAILY [facility] Sodium Chloride 1,000 mls @ 83 mls/hr 11/21/17 13:30 11/21/17 15:34 Normal Saline - IV 83 mls/hr ASDIR [facility] Administration Insulin Aspart 0 vial 11/21/17 16:30 11/21/17 16:51 Novolog Vial Sliding Scale - SQ Not Given ACHS [facility] Protocol Losartan Potassium 100 mg 11/22/17 10:00 Cozaar - PO DAILY [facility] Methylprednisolone Sodium Succinate 40 mg 11/21/17 14:45 11/21/17 18:09 Solu-Medrol - IVPUSH Not Given Q8H-IV [facility] Metoprolol Succinate 100 mg 11/22/17 10:00 Toprol Xl - PO DAILY [facility] Mupirocin 1 applic 11/21/17 22:00 Bactroban Ointment (For Decolonization) - NS 11/26/17 21:59 BID [facility] Tamsulosin HCl 0.4 mg 11/22/17 08:30 Flomax - PO DAILY@0830 [facility]
[2017-11-21 19:13] LABS: URINE APPEARANCE CLEAR; URINE BILIRUBIN NEGATIVE (<2.0 mg/dL); URINE COLOR YELLOW; URINE GLUCOSE (UA) NEGATIVE (NEGATIVE); URINE KETONE NEGATIVE (NEGATIVE); URINE LEUK ESTERASE NEGATIVE (NEGATIVE); URINE NITRITE NEGATIVE (NEGATIVE); URINE PROTEIN NEGATIVE (NEGATIVE); URINE UROBILINOGEN NEGATIVE mg/dL (0.2-1.0)
[2017-11-21] MEDS ORDERED: CHLORHEXIDINE GLUCONATE 4% CLEANSER FOR DECOLONIZATION TP SCH (22:00)
[2017-11-21] MEDS: MUPIROCIN 2% TOPICAL OINTMENT FOR DECOLONIZATION NS SCH (22:47)
[2017-11-21] MEDS ORDERED: INSULIN (NOVOLOG) ASPART 100 UNITS/ML 10ML VIAL ONE (22:50)
[2017-11-21] MEDS ORDERED: PT OWN MED DRAWER 7, Y5N ONE ×2 (22:50→23:31)
[2017-11-21] MEDS: BUDESONIDE/FORMETEROL FUMARATE 160/4.5 mcg INHALER IH SCH (23:31)
[2017-11-22] MEDS: methylPREDNISolone NA SUCC 40 MG/1 ML VIAL IVPUSH SCH ×3 (02:00→17:08)
[2017-11-22] MEDS: ALBUTEROL SO4 0.083% IH SOL 2.5 MG/3 ML VIAL.NEB. NEB PRN ×2 (06:00→22:55)
[2017-11-22 06:41] LABS: BASO % 0.2 % (0-2.0); HEMATOCRIT 37.9 % (35.4-49); HEMOGLOBIN 12.4 GM/dL (11.7-16.9); LYMPH % 3.2 % (8-40); MCH 30.5 pg (25.7-33.7); MCHC 32.8 g/dl (32.0-35.9); MEAN CELL VOLUME 93.1 fl (80-96); MONO % 1.5 % (3.8-10.2); NEUT % 95.1 % (42.8-82.8); PLATELET COUNT 130 K/MM3 (134-434); RBC 4.07 M/mm3 (4.00-5.60); RDW 14.8 % (11.9-15.9); WHITE BLOOD COUNT 10.2 K/mm3 (4.0-10.0)
[2017-11-22 07:19] LABS: ANION GAP 9 MMOL/L (8-16); BLOOD UREA NITROGEN 23 mg/dL (7-18); CALCIUM 8.1 mg/dL (8.5-10.1); CHLORIDE 108 mmol/L (98-107); CO2 22 mmol/L (21-32); CREATININE 0.9 mg/dL (0.55-1.3); GLUCOSE,RANDOM 180 mg/dL (74-106); MAGNESIUM 1.6 mg/dL (1.8-2.4); PHOSPHOROUS 2.8 mg/dL (2.5-4.9); POTASSIUM 3.9 mmol/L (3.5-5.1); SODIUM 139 mmol/L (136-145)
[2017-11-22] MEDS: INSULIN SLIDING SCALE (NOVOLOG) 1 VIAL SQ SCH ×4 (07:22→21:39)
[2017-11-22] MEDS: ALBUTEROL SO4 2.5/IPRATROPIUM 0.5 INH SOL 3 ML VIAL.NEB. NEB SCH ×4 (08:33→20:50)
[2017-11-22] MEDS: TAMSULOSIN HCL 0.4 MG CAP PO SCH (09:11)
[2017-11-22] MEDS: LOSARTAN POTASSIUM 50 MG TABLET (FP) PO SCH (09:11)
[2017-11-22] MEDS: HYDROCHLOROTHIAZIDE 25 MG TABLET (FP) PO SCH (09:11)
[2017-11-22] MEDS: ENOXAPARIN NA (PORCINE) 40 MG/0.4 ML DISP.SYRIN SQ SCH (09:12)
[2017-11-22] MEDS: amLODIPine BESYLATE 10 MG TABLET (FP) PO SCH (09:13)
[2017-11-22] MEDS: ALLOPURINOL 300 MG TABLET (FP) PO SCH (09:14)
[2017-11-22] MEDS: BUDESONIDE/FORMETEROL FUMARATE 160/4.5 mcg INHALER IH SCH ×2 (09:14→21:30)
[2017-11-22] MEDS ORDERED: TIOTROPIUM BROMIDE 2.5 MCG (SPIRIVA) RESPIMAT INHALER IH SCH (10:00)
[2017-11-22] MEDS ORDERED: FLU VACCINE QUAD 60 MCG/0.5 ML (MDV 18-19) IM ONE (10:00)
[2017-11-22] MEDS ORDERED: PNEUMOC 13-VAL CONJ-DIP CRM/PF 0.5 ML DISP.SYRIN IM ONE (10:00)
[2017-11-22] MEDS: MUPIROCIN 2% TOPICAL OINTMENT FOR DECOLONIZATION NS SCH ×2 (10:30→21:30)
--- NOTE | 2017-11-22 10:38 | CON.ID ---
Consult Consult Specialty:: infectious diseases Reason for Consultation:: fever sob,pna - History of Present Illness Chief Complaint: fever,sob History of Present Illness: 67 YOM, with a significant past medical history of Chronic Hypoxic Respiratory Failure, pneumonia, SLE /Lupus, ILD on 2L O2, HTN, DM2, BPH, came to the hospital because of sob and fever, patient states that his symptoms started suddenly and also it was associated with fever according to the notes patients daughter looked at thsi o2 sat and found to be dropping to 70 currently the patient is still sob but says he is feeling slightly better not able to complete full sentences denies travel or sick contacts work up ahs been send has sputum production but mainly whitish in color was ex smoker has stopped it it seems 20 yrs back - History Source History Provided By: Patient, Medical Record Limitations to Obtaining History: Language Barrier - Past Medical History Cardio/Vascular: Yes: HTN Rheumatology: Yes: Lupus Endocrine: Yes: Diabetes Mellitus - Alcohol/Substance Use Hx Alcohol Use: No - Smoking History Smoking history: Never smoked Have you smoked in the past 12 months: No Home Medications - Allergies Allergies/Adverse Reactions: Allergies Allergy/AdvReac Type Severity Reaction Status Date / Time No Known Allergies Allergy Verified 11/21/17 10:43 - Home Medications Home Medications: Ambulatory Orders Allopurinol 300 mg PO DAILY 06/04/17 Metformin HCl [Metformin HCl ER] 500 mg PO DAILY 06/04/17 Metoprolol Succinate [Toprol Xl] 100 mg PO DAILY 06/04/17 Olmesartan/Amlodipin/Hcthiazid [Hbvmqwn-Yzlbje-Wxmn 40-10-25Mg] 1 each PO DAILY 06/04/17 Tamsulosin HCl [Flomax -] 0.4 mg PO DAILY 06/04/17 Budesonide/Formeterol Fumarate [SYMBICORT 160/4.5mcg -] 2 puff IH BID inhaler 09/14/17 Tiotropium [place] [Spiriva] 1 puff IH DAILY cap 09/14/17 Family Disease History - Family Disease History Family Disease History: Other: Sister (His sister had lupus.) Review of Systems - Review of Systems Constitutional: reports: Fever Eyes: reports: No Symptoms HENT: reports: No Symptoms Neck: reports: No Symptoms Cardiovascular: reports: No Symptoms Respiratory: reports: Cough, SOB, SOB on Exertion, Other (sputum production) Gastrointestinal: reports: No Symptoms, Abdominal Pain Musculoskeletal: reports: No Symptoms Integumentary: reports: No Symptoms Neurological: reports: No Symptoms Endocrine: reports: No Symptoms Hematology/Lymphatic: reports: No Symptoms Psychiatric: reports: No Symptoms Physical Exam Vital Signs: Vital Signs Temperature 98.9 F 11/22/17 04:56 Pulse Rate 72 11/22/17 08:56 Respiratory Rate 18 11/22/17 09:00 Blood Pressure 123/66 11/22/17 08:56 O2 Sat by Pulse Oximetry (%) 98 11/22/17 09:00 Constitutional: Yes: Well Nourished, Calm, Mild Distress Neck: Yes: Supple, Trachea Midline Cardiovascular: Yes: Regular Rate and Rhythm Respiratory: Yes: Regular, On Nasal O2, Poor Air Entry, Tachypnea Gastrointestinal: Yes: Normal Bowel Sounds, Soft Musculoskeletal: Yes: WNL Extremities: Yes: WNL Neurological: Yes: Alert, Oriented Psychiatric: Yes: Alert, Oriented Labs: CBC, BMP 11/22/17 05:30 11/22/17 05:30 Assessment/Plan Respiratory Failure Pneumonia Sepsis Interstitial Lung Disease HTN DM BPH plan will continue zosyn await for all cx reports resp support rest as per pul and primary team
--- NOTE | 2017-11-22 10:45 | EKG ---
Test Reason : Blood Pressure : / mmHG Vent. Rate : 106 BPM Atrial Rate : 106 BPM P-R Int : 138 ms QRS Dur : 090 ms QT Int : 340 ms P-R-T Axes : 034 009 041 degrees QTc Int : 451 ms SINUS TACHYCARDIA INFERIOR INFARCT (CITED ON OR BEFORE 06-SEP-2017) ABNORMAL ECG WHEN COMPARED WITH ECG OF 12-SEP-2017 12:10, NO SIGNIFICANT CHANGE WAS FOUND Confirmed by Robert Mujica MD ([id number]) on 11/22/2017 10:44:55 AM Referred By: Confirmed By:Robert Mujica MD
--- NOTE | 2017-11-22 11:03 | PN ---
Progress Note, Physician History of Present Illness: pulmonary alert,mildly dyspneic,VM 50%.-cp - Current Medication List Current Medications: Active Medications Acetaminophen (Tylenol -) 650 mg PO Q6H PRN PRN Reason: PAIN OR FEVER Albuterol Sulfate (Ventolin 0.083% Nebulizer Soln -) 1 amp NEB Q4H PRN PRN Reason: SHORT OF BREATH/WHEEZING Last Admin: 11/22/17 06:00 Dose: 1 amp Albuterol/Ipratropium (Duoneb -) 1 amp NEB RQID [facility] Last Admin: 11/22/17 08:33 Dose: 1 amp Allopurinol (Zyloprim -) 300 mg PO DAILY [facility] Last Admin: 11/22/17 09:14 Dose: 300 mg Amlodipine Besylate (Norvasc -) 10 mg PO DAILY [facility] Last Admin: 11/22/17 09:13 Dose: 10 mg Budesonide/Formoterol Fumarate (Symbicort 160/4.5mcg -) 2 puff IH BID [facility] Last Admin: 11/22/17 09:14 Dose: 2 puff Enoxaparin Sodium (Lovenox -) 40 mg SQ DAILY [facility] Last Admin: 11/22/17 09:12 Dose: 40 mg Hydrochlorothiazide (Hctz -) 25 mg PO DAILY [facility] Last Admin: 11/22/17 09:11 Dose: 25 mg Sodium Chloride (Normal Saline -) 1,000 mls @ 83 mls/hr IV ASDIR [facility] Last Admin: 11/21/17 15:34 Dose: 83 mls/hr Piperacillin Sod/Tazobactam (Sod 3.375 gm/ Dextrose) 50 mls @ 100 mls/hr IVPB Q8H-IV [facility]; Protocol Insulin Aspart (Novolog Vial Sliding Scale -) 0 vial SQ ACHS [facility]; Protocol Last Admin: 11/22/17 07:22 Dose: 2 units Losartan Potassium (Cozaar -) 100 mg PO DAILY [facility] Last Admin: 11/22/17 09:11 Dose: 100 mg Methylprednisolone Sodium Succinate (Solu-Medrol -) 40 mg IVPUSH Q8H-IV [facility] Last Admin: 11/22/17 09:13 Dose: 40 mg Metoprolol Succinate (Toprol Xl -) 100 mg PO DAILY [facility] Last Admin: 11/22/17 09:14 Dose: 100 mg Mupirocin (Bactroban Ointment (For Decolonization) -) 1 applic NS BID [facility] Stop: 11/26/17 21:59 Last Admin: 11/21/17 22:47 Dose: Not Given Tamsulosin HCl (Flomax -) 0.4 mg PO DAILY@0830 [facility] Last Admin: 11/22/17 09:11 Dose: 0.4 mg - Objective Vital Signs: Vital Signs Temperature 98.9 F 11/22/17 04:56 Pulse Rate 72 11/22/17 08:56 Respiratory Rate 18 11/22/17 09:00 Blood Pressure 123/66 11/22/17 08:56 O2 Sat by Pulse Oximetry (%) 98 11/22/17 09:00 Constitutional: Yes: Well Nourished, Calm Eyes: Yes: WNL HENT: Yes: WNL Neck: Yes: WNL Cardiovascular: Yes: Regular Rate and Rhythm, S1, S2 Respiratory: Yes: Rales (bilateral crackles) Gastrointestinal: Yes: Normal Bowel Sounds, Soft Edema: No Labs: CBC, BMP 11/22/17 05:30 11/22/17 05:30 INR, PTT INR 1.11 (0.83-1.09) H 11/21/17 11:26 Problem List - Problems (1) Acute and chronic respiratory failure with hypoxia Code(s): J96.21 - ACUTE AND CHRONIC RESPIRATORY FAILURE WITH HYPOXIA (2) Pneumonia Code(s): J18.9 - PNEUMONIA, UNSPECIFIED ORGANISM (3) Sepsis Code(s): A41.9 - SEPSIS, UNSPECIFIED ORGANISM Assessment/Plan ASSESSMENT AND PLAN: Acute on Chronic Hypoxic Respiratory Failure Pneumonia Sepsis Interstitial Lung Disease HTN DM BPH - IV antibiotics - medrol - inhaled bronchodilators - O2 to keep SpO2 >90% - BiPAP to assist in work of breathing - 50% ventimask DR SMART
[2017-11-22 11:05] LABS: ANISOCYTOSIS 1+; MACROCYTOSIS 1+; PLATELET ESTIMATE DECREASED
[2017-11-22] MEDS: PIPERACILLIN/TAZOB 3.375 GM 3.375 GM in DEXTROSE 5%-WATER - 50 ML IVPB SCH ×2 (11:40→17:08)
[2017-11-22] MEDS ORDERED: PIPERACILLIN/TAZOBACTAM 3.375 GM VIAL IVPB ONE ×2 (12:00→17:03)
[2017-11-22] MEDS ORDERED: DEXTROSE 5%-WATER - 50 ML IVPB ONE ×2 (12:00→17:03)
[2017-11-22] MEDS: SODIUM CHLORIDE 1,000 ML IV SCH (13:02)
[2017-11-22] MEDS ORDERED: VANCOMYCIN 1,250 MG in DEXTROSE 5%-WATER - 250 ML IVPB ONE (20:30)
[2017-11-22] MEDS ORDERED: INSULIN (NOVOLOG) ASPART 100 UNITS/ML 10ML VIAL ONE (21:04)
--- NOTE | 2017-11-22 22:41 | PN ---
Progress Note, Physician - Current Medication List Current Medications: Active Medications Acetaminophen (Tylenol -) 650 mg PO Q6H PRN PRN Reason: PAIN OR FEVER Albuterol Sulfate (Ventolin 0.083% Nebulizer Soln -) 1 amp NEB Q4H PRN PRN Reason: SHORT OF BREATH/WHEEZING Last Admin: 11/22/17 06:00 Dose: 1 amp Albuterol/Ipratropium (Duoneb -) 1 amp NEB RQID [facility] Last Admin: 11/22/17 20:50 Dose: 1 amp Allopurinol (Zyloprim -) 300 mg PO DAILY [facility] Last Admin: 11/22/17 09:14 Dose: 300 mg Amlodipine Besylate (Norvasc -) 10 mg PO DAILY [facility] Last Admin: 11/22/17 09:13 Dose: 10 mg Budesonide/Formoterol Fumarate (Symbicort 160/4.5mcg -) 2 puff IH BID [facility] Last Admin: 11/22/17 21:30 Dose: 2 puff Enoxaparin Sodium (Lovenox -) 40 mg SQ DAILY [facility] Last Admin: 11/22/17 09:12 Dose: 40 mg Hydrochlorothiazide (Hctz -) 25 mg PO DAILY [facility] Last Admin: 11/22/17 09:11 Dose: 25 mg Sodium Chloride (Normal Saline -) 1,000 mls @ 83 mls/hr IV ASDIR [facility] Last Admin: 11/22/17 13:02 Dose: 83 mls/hr Piperacillin Sod/Tazobactam (Sod 3.375 gm/ Dextrose) 50 mls @ 100 mls/hr IVPB Q8H-IV [facility]; Protocol Last Admin: 11/22/17 17:08 Dose: 100 mls/hr Insulin Aspart (Novolog Vial Sliding Scale -) 0 vial SQ ACHS [facility]; Protocol Last Admin: 11/22/17 21:39 Dose: 4 units Losartan Potassium (Cozaar -) 100 mg PO DAILY [facility] Last Admin: 11/22/17 09:11 Dose: 100 mg Methylprednisolone Sodium Succinate (Solu-Medrol -) 40 mg IVPUSH Q8H-IV [facility] Last Admin: 11/22/17 17:08 Dose: 40 mg Metoprolol Succinate (Toprol Xl -) 100 mg PO DAILY [facility] Last Admin: 11/22/17 09:14 Dose: 100 mg Mupirocin (Bactroban Ointment (For Decolonization) -) 1 applic NS BID [facility] Stop: 11/26/17 21:59 Last Admin: 11/22/17 21:30 Dose: Not Given Tamsulosin HCl (Flomax -) 0.4 mg PO DAILY@0830 [facility] Last Admin: 11/22/17 09:11 Dose: 0.4 mg - Objective Vital Signs: Vital Signs Temperature 98.0 F 11/22/17 18:00 Pulse Rate 106 H 11/22/17 18:00 Respiratory Rate 20 11/22/17 18:00 Blood Pressure 125/57 L 11/22/17 18:00 O2 Sat by Pulse Oximetry (%) 98 11/22/17 16:33 Labs: CBC, BMP 11/22/17 05:30 11/22/17 05:30 INR, PTT INR 1.11 (0.83-1.09) H 11/21/17 11:26 Problem List - Problems (1) BURKE (acute kidney injury) Code(s): N17.9 - ACUTE KIDNEY FAILURE, UNSPECIFIED (2) Acute and chronic respiratory failure with hypoxia Code(s): J96.21 - ACUTE AND CHRONIC RESPIRATORY FAILURE WITH HYPOXIA (3) CKD (chronic kidney disease) Code(s): N18.9 - CHRONIC KIDNEY DISEASE, UNSPECIFIED Qualifiers: Chronic kidney disease stage: stage 2 (mild) Qualified Code(s): N18.2 - Chronic kidney disease, stage 2 (mild) (4) GI bleed Code(s): K92.2 - GASTROINTESTINAL HEMORRHAGE, UNSPECIFIED (5) Hypertension Code(s): I10 - ESSENTIAL (PRIMARY) HYPERTENSION Qualifiers: Hypertension type: essential hypertension Qualified Code(s): I10 - Essential (primary) hypertension (6) SLE (systemic lupus erythematosus) Code(s): M32.9 - SYSTEMIC LUPUS ERYTHEMATOSUS, UNSPECIFIED Qualifiers: Systemic lupus erythematosus organ involvement: unspecified (7) Sepsis Code(s): A41.9 - SEPSIS, UNSPECIFIED ORGANISM Qualifiers: Sepsis type: sepsis due to unspecified organism Qualified Code(s): A41.9 - Sepsis, unspecified organism
[2017-11-23] MEDS ORDERED: DEXTROSE 5%-WATER - 50 ML IVPB ONE ×2 (00:50→08:57)
[2017-11-23] MEDS ORDERED: PIPERACILLIN/TAZOBACTAM 3.375 GM VIAL IVPB ONE ×3 (00:50→16:38)
[2017-11-23] MEDS: PIPERACILLIN/TAZOB 3.375 GM 3.375 GM in DEXTROSE 5%-WATER - 50 ML IVPB SCH ×3 (01:42→17:02)
[2017-11-23] MEDS: methylPREDNISolone NA SUCC 40 MG/1 ML VIAL IVPUSH SCH ×3 (01:42→16:59)
[2017-11-23] MEDS: INSULIN SLIDING SCALE (NOVOLOG) 1 VIAL SQ SCH ×4 (06:07→22:23)
[2017-11-23] MEDS: ALBUTEROL SO4 2.5/IPRATROPIUM 0.5 INH SOL 3 ML VIAL.NEB. NEB SCH ×4 (08:14→20:40)
[2017-11-23] MEDS ORDERED: PT OWN MED DRAWER 7, Y5N ONE (08:57)
[2017-11-23] MEDS: TAMSULOSIN HCL 0.4 MG CAP PO SCH (09:45)
[2017-11-23] MEDS: LOSARTAN POTASSIUM 50 MG TABLET (FP) PO SCH (09:46)
[2017-11-23] MEDS: amLODIPine BESYLATE 10 MG TABLET (FP) PO SCH (09:46)
[2017-11-23] MEDS: ALLOPURINOL 300 MG TABLET (FP) PO SCH (09:46)
[2017-11-23] MEDS: HYDROCHLOROTHIAZIDE 25 MG TABLET (FP) PO SCH (09:46)
[2017-11-23] MEDS: ENOXAPARIN NA (PORCINE) 40 MG/0.4 ML DISP.SYRIN SQ SCH (09:47)
[2017-11-23] MEDS: BUDESONIDE/FORMETEROL FUMARATE 160/4.5 mcg INHALER IH SCH ×2 (09:47→22:23)
[2017-11-23] MEDS: MUPIROCIN 2% TOPICAL OINTMENT FOR DECOLONIZATION NS SCH (09:49)
--- NOTE | 2017-11-23 11:18 | PN ---
Progress Note, Physician History of Present Illness: pulmonary alert on bipap comfortable,-tachypnea - Current Medication List Current Medications: Active Medications Acetaminophen (Tylenol -) 650 mg PO Q6H PRN PRN Reason: PAIN OR FEVER Albuterol Sulfate (Ventolin 0.083% Nebulizer Soln -) 1 amp NEB Q4H PRN PRN Reason: SHORT OF BREATH/WHEEZING Last Admin: 11/22/17 22:55 Dose: 1 amp Albuterol/Ipratropium (Duoneb -) 1 amp NEB RQID [facility] Last Admin: 11/23/17 08:14 Dose: 1 amp Allopurinol (Zyloprim -) 300 mg PO DAILY [facility] Last Admin: 11/23/17 09:46 Dose: 300 mg Amlodipine Besylate (Norvasc -) 10 mg PO DAILY [facility] Last Admin: 11/23/17 09:46 Dose: 10 mg Budesonide/Formoterol Fumarate (Symbicort 160/4.5mcg -) 2 puff IH BID [facility] Last Admin: 11/23/17 09:47 Dose: 2 puff Enoxaparin Sodium (Lovenox -) 40 mg SQ DAILY [facility] Last Admin: 11/23/17 09:47 Dose: 40 mg Hydrochlorothiazide (Hctz -) 25 mg PO DAILY [facility] Last Admin: 11/23/17 09:46 Dose: 25 mg Sodium Chloride (Normal Saline -) 1,000 mls @ 83 mls/hr IV ASDIR [facility] Last Admin: 11/22/17 13:02 Dose: 83 mls/hr Piperacillin Sod/Tazobactam (Sod 3.375 gm/ Dextrose) 50 mls @ 100 mls/hr IVPB Q8H-IV [facility]; Protocol Last Admin: 11/23/17 09:43 Dose: 100 mls/hr Insulin Aspart (Novolog Vial Sliding Scale -) 0 vial SQ ACHS [facility]; Protocol Last Admin: 11/23/17 06:07 Dose: 2 units Losartan Potassium (Cozaar -) 100 mg PO DAILY [facility] Last Admin: 11/23/17 09:46 Dose: 100 mg Methylprednisolone Sodium Succinate (Solu-Medrol -) 40 mg IVPUSH Q8H-IV [facility] Last Admin: 11/23/17 09:48 Dose: 40 mg Metoprolol Succinate (Toprol Xl -) 100 mg PO DAILY [facility] Last Admin: 11/23/17 09:45 Dose: 100 mg Tamsulosin HCl (Flomax -) 0.4 mg PO DAILY@0830 [facility] Last Admin: 11/23/17 09:45 Dose: 0.4 mg - Objective Vital Signs: Vital Signs Temperature 98.0 F 11/23/17 08:28 Pulse Rate 104 H 11/23/17 08:28 Respiratory Rate 30 H 11/23/17 08:30 Blood Pressure 132/71 11/23/17 08:28 O2 Sat by Pulse Oximetry (%) 95 11/23/17 08:30 Constitutional: Yes: Well Nourished, Calm Eyes: Yes: WNL HENT: Yes: WNL Neck: Yes: WNL Cardiovascular: Yes: Regular Rate and Rhythm, S1, S2 Respiratory: Yes: On BiPap, Rales (bilateral crackles) Gastrointestinal: Yes: Normal Bowel Sounds, Soft Extremities: Yes: WNL Edema: No Labs: CBC, BMP Problem List - Problems (1) Acute and chronic respiratory failure with hypoxia Code(s): J96.21 - ACUTE AND CHRONIC RESPIRATORY FAILURE WITH HYPOXIA (2) Pneumonia Code(s): J18.9 - PNEUMONIA, UNSPECIFIED ORGANISM (3) Sepsis Code(s): A41.9 - SEPSIS, UNSPECIFIED ORGANISM Assessment/Plan ASSESSMENT AND PLAN: Acute on Chronic Hypoxic Respiratory Failure Pneumonia Sepsis Interstitial Lung Disease HTN DM BPH - IV antibiotics - medrol same dose - inhaled bronchodilators - O2 to keep SpO2 >90% - BiPAP to assist in work of breathing - 50% ventimask DR [facility]ART
--- NOTE | 2017-11-23 12:57 | PN ---
Progress Note, Physician History of Present Illness: patient stable doing well cx result noted - Current Medication List Current Medications: Active Medications Acetaminophen (Tylenol -) 650 mg PO Q6H PRN PRN Reason: PAIN OR FEVER Albuterol Sulfate (Ventolin 0.083% Nebulizer Soln -) 1 amp NEB Q4H PRN PRN Reason: SHORT OF BREATH/WHEEZING Last Admin: 11/22/17 22:55 Dose: 1 amp Albuterol/Ipratropium (Duoneb -) 1 amp NEB RQID [facility] Last Admin: 11/23/17 11:56 Dose: 1 amp Allopurinol (Zyloprim -) 300 mg PO DAILY [facility] Last Admin: 11/23/17 09:46 Dose: 300 mg Amlodipine Besylate (Norvasc -) 10 mg PO DAILY [facility] Last Admin: 11/23/17 09:46 Dose: 10 mg Budesonide/Formoterol Fumarate (Symbicort 160/4.5mcg -) 2 puff IH BID [facility] Last Admin: 11/23/17 09:47 Dose: 2 puff Enoxaparin Sodium (Lovenox -) 40 mg SQ DAILY [facility] Last Admin: 11/23/17 09:47 Dose: 40 mg Hydrochlorothiazide (Hctz -) 25 mg PO DAILY [facility] Last Admin: 11/23/17 09:46 Dose: 25 mg Sodium Chloride (Normal Saline -) 1,000 mls @ 83 mls/hr IV ASDIR [facility] Last Admin: 11/22/17 13:02 Dose: 83 mls/hr Piperacillin Sod/Tazobactam (Sod 3.375 gm/ Dextrose) 50 mls @ 100 mls/hr IVPB Q8H-IV [facility]; Protocol Last Admin: 11/23/17 09:43 Dose: 100 mls/hr Insulin Aspart (Novolog Vial Sliding Scale -) 0 vial SQ ACHS [facility]; Protocol Last Admin: 11/23/17 11:21 Dose: Not Given Losartan Potassium (Cozaar -) 100 mg PO DAILY [facility] Last Admin: 11/23/17 09:46 Dose: 100 mg Methylprednisolone Sodium Succinate (Solu-Medrol -) 40 mg IVPUSH Q8H-IV [facility] Last Admin: 11/23/17 09:48 Dose: 40 mg Metoprolol Succinate (Toprol Xl -) 100 mg PO DAILY [facility] Last Admin: 11/23/17 09:45 Dose: 100 mg Tamsulosin HCl (Flomax -) 0.4 mg PO DAILY@0830 [facility] Last Admin: 11/23/17 09:45 Dose: 0.4 mg - Objective Vital Signs: Vital Signs Temperature 98.0 F 11/23/17 08:28 Pulse Rate 104 H 11/23/17 08:28 Respiratory Rate 30 H 11/23/17 08:30 Blood Pressure 132/71 11/23/17 08:28 O2 Sat by Pulse Oximetry (%) 93 L 11/23/17 11:56 Constitutional: Yes: No Distress, Calm Cardiovascular: Yes: Regular Rate and Rhythm Respiratory: Yes: Regular, On BiPap, Poor Air Entry, Rhonchi Gastrointestinal: Yes: Normal Bowel Sounds, Soft Musculoskeletal: Yes: WNL Extremities: Yes: WNL Neurological: Yes: Alert, Oriented Psychiatric: Yes: Alert, Oriented Labs: CBC, BMP 11/22/17 05:30 11/22/17 05:30 INR, PTT INR 1.11 (0.83-1.09) H 11/21/17 11:26 Assessment/Plan Respiratory Failure Pneumonia Sepsis Interstitial Lung Disease HTN DM BPH plan will continue zosyn will send repeat blood cx resp support rest as per the team
[2017-11-23] MEDS: SODIUM CHLORIDE 1,000 ML IV SCH (13:34)
[2017-11-23] MEDS ORDERED: INSULIN (NOVOLOG) ASPART 100 UNITS/ML 10ML VIAL ONE ×2 (16:37→22:16)
[2017-11-23] MEDS ORDERED: DEXTROSE 5%-WATER - 100 ML IVPB ONE (16:38)
[2017-11-23] MEDS: ALBUTEROL SO4 0.083% IH SOL 2.5 MG/3 ML VIAL.NEB. NEB PRN (17:48)
[2017-11-23 20:45] LABS: ARTERIAL BLD GAS O2 SATURATION 88.7 % (90-98.9); ARTERIAL BLOOD GAS BASE EXCESS 1.4 meq/l (-2-2); ARTERIAL BLOOD GAS PCO2 38.8 mmHg (35-45); ARTERIAL BLOOD GAS PO2 56.1 mmHg (80-100); ARTERIAL BLOOD GAS pH 7.43 (7.35-7.45)
[2017-11-23 21:02] LABS: ALLENS TEST POSITIVE
--- NOTE | 2017-11-23 21:17 | CONSULT ---
Consultation: REQUESTING PROVIDER: CONSULT REQUEST: We have been asked to medically evaluate this patient for. HISTORY OF PRESENT ILLNESS: This is a 67 yo M, with PMH of chronic hypoxic respiratory failure, ILD on 2L O2 , NPA, SLE/Lupus, HTN, DM2, BPH, who initially presented to ED with low O2 sats and fever. He was briefly treated with bipap but was then switches to nonrebreater. Since then he has been stable on ventimask, abx and steroids, until today, when his respiratory status began to decline. He was switched to BIPAP and O2 had to be increased to 80% for sats in high 90's. Patient claims to be feeling much better, he is not diaphoretic, able to speak freely. He is hooked up to continuous O2 monitoring. REVIEW OF SYSTEMS: CONSTITUTIONAL: Absent: fever, chills, diaphoresis HEENT: Absent: rhinorrhea, nasal congestion, throat pain, throat swelling, difficulty swallowing CARDIOVASCULAR: Absent: chest pain, syncope, palpitations, lightheadedness RESPIRATORY: Absent: orthopnea, wheezing, hemoptysis GASTROINTESTINAL: Absent: abdominal pain, abdominal distension, nausea, vomiting GENITOURINARY: Absent: dysuria MUSCULOSKELETAL: Absent: myalgia, arthralgia SKIN: Absent: rash, itching, pallor HEMATOLOGIC/IMMUNOLOGIC: Absent: easy bleeding, easy bruising ENDOCRINE: Absent: unexplained weight gain, unexplained weight loss NEUROLOGIC: Absent: headache, focal weakness or paresthesias PSYCHIATRIC: Absent: anxiety, depression PHYSICAL EXAMINATION Vital Signs - 24 hr 11/22/17 11/22/17 11/23/17 22:00 23:00 00:20 Temperature 98.4 F Pulse Rate 118 H Respiratory 20 Rate Blood Pressure 128/69 O2 Sat by Pulse 95 97 Oximetry (%) 11/23/17 11/23/17 11/23/17 02:29 04:10 06:00 Temperature 98.4 F 98 F Pulse Rate 93 H 93 H Respiratory 20 26 H Rate Blood Pressure 129/76 134/78 O2 Sat by Pulse 97 Oximetry (%) 11/23/17 11/23/17 11/23/17 08:14 08:28 08:30 Temperature 98.0 F Pulse Rate 97 H 104 H Respiratory 30 H 30 H Rate Blood Pressure 132/71 O2 Sat by Pulse 95 95 Oximetry (%) 11/23/17 11/23/1718 11:56 13:32 15:21 Temperature Pulse Rate 98 H Respiratory 28 H Rate Blood Pressure 125/72 O2 Sat by Pulse 93 L 92 L Oximetry (%) 11/23/17 11/23/17 17:00 17:47 Temperature 98.2 F Pulse Rate 111 H Respiratory 20 Rate Blood Pressure 132/69 O2 Sat by Pulse 91 L Oximetry (%) GENERAL: Awake, alert, and fully oriented, in no acute distress. HEAD: Normal with no signs of trauma. EYES: sclera anicteric, conjunctiva clear. No lid lag. EARS, NOSE, THROAT: Moist mucous membranes. NECK: supple LUNGS: good air movement b/l, coarse breath sounds HEART: Regular rate and rhythm, normal S1 and S2 ABDOMEN: Soft, nontender, not distended, normoactive bowel sounds, no guarding, no rebound, no masses. MUSCULOSKELETAL: No CVA tenderness. UPPER EXTREMITIES: 2+ pulses, warm, well-perfused. LOWER EXTREMITIES: 2+ pulses, warm, well-perfused. No calf tenderness. No peripheral edema. NEUROLOGICAL: Cranial nerves II-XII grossly intact. Normal speech. PSYCHIATRIC: Cooperative. Good eye contact. Appropriate mood and affect. SKIN: Warm, dry Laboratory Results - last 24 hr 11/22/17 11/23/17 11/23/17 21:24 06:06 11:20 Anticoagulation Therapy Puncture Site ABG pH ABG pCO2 at Pt Temp ABG pO2 at Pt Temp ABG HCO3 ABG O2 Sat (Measured) ABG O2 Content ABG Base Excess Bassem Test O2 Delivery Device Oxygen Flow Rate Vent Mode Vent Rate Mechanical Rate Pressure Support Vent POC Glucometer 248 191 161 11/23/17 11/23/17 16:23 20:15 Anticoagulation Therapy No Result Required. Puncture Site Right radial ABG pH 7.43 ABG pCO2 at Pt Temp 38.8 D ABG pO2 at Pt Temp 56.1 L D ABG HCO3 25.2 ABG O2 Sat (Measured) 88.7 L ABG O2 Content 15.6 ABG Base Excess 1.4 Bassem Test Positive O2 Delivery Device Bipap Oxygen Flow Rate 60% Vent Mode No Result Required. Vent Rate No Result Required. Mechanical Rate No Result Required. Pressure Support Vent No Result Required. POC Glucometer 215 Active Medications Generic Name Dose Route Start Last Admin Trade Name Freq PRN Reason Stop Dose Admin Acetaminophen 650 mg 10/01/18 13:23 Tylenol - PO Q6H PRN PAIN OR FEVER Albuterol Sulfate 1 amp 11/21/17 14:42 11/23/17 17:48 Ventolin 0.083% Nebulizer Soln - NEB 1 amp Q4H PRN Administration SHORT OF BREATH/WHEEZING Albuterol/Ipratropium 1 amp 11/21/17 16:00 11/23/17 20:40 Duoneb - NEB 1 amp RQID [facility] Administration Allopurinol 300 mg 11/22/17 10:00 11/23/17 09:46 Zyloprim - PO 300 mg DAILY [facility] Administration Amlodipine Besylate 10 mg 11/22/17 10:00 11/23/17 09:46 Norvasc - PO 10 mg DAILY [facility] Administration Budesonide/Formoterol Fumarate 2 puff 11/21/17 22:00 11/23/17 09:47 Symbicort 160/4.5mcg - IH 2 puff BID [facility] Administration Enoxaparin Sodium 40 mg 11/22/17 10:00 11/23/17 09:47 Lovenox - SQ 40 mg DAILY [facility] Administration Hydrochlorothiazide 25 mg 11/22/17 10:00 11/23/17 09:46 Hctz - PO 25 mg DAILY [facility] Administration Sodium Chloride 1,000 mls @ 83 mls/hr 11/21/17 13:30 11/23/17 13:34 Normal Saline - IV 83 mls/hr ASDIR [facility] Administration Piperacillin Sod/Tazobactam 50 mls @ 100 mls/hr 11/22/17 10:45 11/23/17 17:02 Sod 3.375 gm/ Dextrose IVPB 100 mls/hr Q8H-IV [facility] Administration Protocol Insulin Aspart 0 vial 11/21/17 16:30 11/23/17 16:59 Novolog Vial Sliding Scale - SQ 4 units ACHS [facility] Administration Protocol Losartan Potassium 100 mg 11/22/17 10:00 11/23/17 09:46 Cozaar - PO 100 mg DAILY [facility] Administration Methylprednisolone Sodium Succinate 40 mg 11/21/17 14:45 11/23/17 16:59 Solu-Medrol - IVPUSH 40 mg Q8H-IV [facility] Administration Metoprolol Succinate 100 mg 11/22/17 10:00 11/23/17 09:45 Toprol Xl - PO 100 mg DAILY [facility] Administration Tamsulosin HCl 0.4 mg 11/22/17 08:30 11/23/17 09:45 Flomax - PO 0.4 mg DAILY@0830 [facility] Administration ASSESSMENT/PLAN: This is a 67 yo M, with PMH of chronic hypoxic respiratory failure, ILD on 2L O2 , NPA, SLE/Lupus, HTN, DM2, BPH, who initially presented to ED with low O2 sats and fever. Acute on Chronic Hypoxic Respiratory Failure Sepsis secondary to PNA ILD HTN DM BPH -respiratory status appears stable at this time on BIPAP 80%. Continuous pulse ox monitoring: If Sats drop below 92%, transfer to ICU. -ABG in 60% appreciated. Repeat abg in 6 hr -nebs, medrol and abx -f/u cxr, cbc, cmp stat Dispo: at this time patient can remain on continuous pulse ox in telemetry since he is feeling better. if respiratory status worsens further will transfer to ICU and possibly intubate. please call stat if any changes occur. will follow labs/imaging Problem List - Problems (1) Acute and chronic respiratory failure with hypoxia Code(s): J96.21 - ACUTE AND CHRONIC RESPIRATORY FAILURE WITH HYPOXIA (2) Acute respiratory failure with hypoxia Code(s): J96.01 - ACUTE RESPIRATORY FAILURE WITH HYPOXIA (3) Pneumonia Code(s): J18.9 - PNEUMONIA, UNSPECIFIED ORGANISM (4) Abdominal pain Code(s): R10.9 - UNSPECIFIED ABDOMINAL PAIN Qualifiers: Abdominal location: generalized Qualified Code(s): R10.84 - Generalized abdominal pain (5) Diverticulosis Code(s): K57.90 - DVRTCLOS OF INTEST, PART UNSP, W/O PERF OR ABSCESS W/O BLEED Qualifiers: Diverticulosis site: diverticulosis of large intestine Diverticulosis bleeding: diverticulosis without bleeding Qualified Code(s): K57.30 - Diverticulosis of large intestine without perforation or abscess without bleeding (6) SLE (systemic lupus erythematosus) Code(s): M32.9 - SYSTEMIC LUPUS ERYTHEMATOSUS, UNSPECIFIED (7) Sepsis Code(s): A41.9 - SEPSIS, UNSPECIFIED ORGANISM Visit type - Emergency Visit Emergency Visit: Yes ED Registration Date: 11/21/17 Care time: The patient presented to the Emergency Department on the above date and was hospitalized for further evaluation of their emergent condition. - New Patient This patient is new to me today: No - Critical Care Critical Care patient: No
[2017-11-23 21:31] LABS: HEMATOCRIT 39.8 % (35.4-49); HEMOGLOBIN 12.9 GM/dL (11.7-16.9); MCH 30.3 pg (25.7-33.7); MCHC 32.5 g/dl (32.0-35.9); MEAN CELL VOLUME 93.3 fl (80-96); MEAN PLT VOLUME 8.8 fl (7.5-11.1); PLATELET COUNT 154 K/MM3 (134-434); RBC 4.27 M/mm3 (4.00-5.60); RDW 15.2 % (11.9-15.9); WHITE BLOOD COUNT 14.3 K/mm3 (4.0-10.0)
[2017-11-23 22:01] LABS: ALBUMIN 2.9 g/dl (3.4-5.0); ALK PHOS 74 U/L (45-117); ANION GAP 5 MMOL/L (8-16); BILIRUBIN,TOTAL 0.7 mg/dL (0.2-1); BLOOD UREA NITROGEN 27 mg/dL (7-18); CALCIUM 8.7 mg/dL (8.5-10.1); CHLORIDE 113 mmol/L (98-107); CO2 26 mmol/L (21-32); GLUCOSE,RANDOM 118 mg/dL (74-106); MAGNESIUM 1.9 mg/dL (1.8-2.4); POTASSIUM 3.8 mmol/L (3.5-5.1); SGOT/AST 73 U/L (15-37); SGPT/ALT 72 U/L (13-61); SODIUM 143 mmol/L (136-145); TOT PROT 6.6 g/dl (6.4-8.2)
[2017-11-23] MEDS ORDERED: FUROSEMIDE 40 MG/4 ML INJECTABLE VIAL IVPUSH ONE (22:49)
[2017-11-23 23:23] LABS: PLATELET ESTIMATE ADEQUATE
[2017-11-24] MEDS ORDERED: DEXTROSE 5%-WATER - 50 ML IVPB ONE ×3 (00:24→17:15)
[2017-11-24] MEDS ORDERED: PIPERACILLIN/TAZOBACTAM 3.375 GM VIAL IVPB ONE ×3 (00:24→17:15)
[2017-11-24] MEDS: PIPERACILLIN/TAZOB 3.375 GM 3.375 GM in DEXTROSE 5%-WATER - 50 ML IVPB SCH ×3 (01:13→17:17)
[2017-11-24] MEDS: methylPREDNISolone NA SUCC 40 MG/1 ML VIAL IVPUSH SCH ×3 (01:13→17:16)
--- NOTE | 2017-11-24 01:34 | PN ---
Progress Note, Physician History of Present Illness: Pt seen and examined on 11/23/17 however note is being entered now - Current Medication List Current Medications: Active Medications Acetaminophen (Tylenol -) 650 mg PO Q6H PRN PRN Reason: PAIN OR FEVER Albuterol Sulfate (Ventolin 0.083% Nebulizer Soln -) 1 amp NEB Q4H PRN PRN Reason: SHORT OF BREATH/WHEEZING Last Admin: 11/23/17 17:48 Dose: 1 amp Albuterol/Ipratropium (Duoneb -) 1 amp NEB RQID [facility] Last Admin: 11/23/17 20:40 Dose: 1 amp Allopurinol (Zyloprim -) 300 mg PO DAILY [facility] Last Admin: 11/23/17 09:46 Dose: 300 mg Amlodipine Besylate (Norvasc -) 10 mg PO DAILY [facility] Last Admin: 11/23/17 09:46 Dose: 10 mg Budesonide/Formoterol Fumarate (Symbicort 160/4.5mcg -) 2 puff IH BID [facility] Last Admin: 11/23/17 22:23 Dose: 2 puff Enoxaparin Sodium (Lovenox -) 40 mg SQ DAILY [facility] Last Admin: 11/23/17 09:47 Dose: 40 mg Hydrochlorothiazide (Hctz -) 25 mg PO DAILY [facility] Last Admin: 11/23/17 09:46 Dose: 25 mg Piperacillin Sod/Tazobactam (Sod 3.375 gm/ Dextrose) 50 mls @ 100 mls/hr IVPB Q8H-IV [facility]; Protocol Last Admin: 11/24/17 01:13 Dose: 100 mls/hr Insulin Aspart (Novolog Vial Sliding Scale -) 0 vial SQ ACHS [facility]; Protocol Last Admin: 11/23/17 22:23 Dose: Not Given Losartan Potassium (Cozaar -) 100 mg PO DAILY [facility] Last Admin: 11/23/17 09:46 Dose: 100 mg Methylprednisolone Sodium Succinate (Solu-Medrol -) 40 mg IVPUSH Q8H-IV [facility] Last Admin: 11/24/17 01:13 Dose: 40 mg Metoprolol Succinate (Toprol Xl -) 100 mg PO DAILY [facility] Last Admin: 11/23/17 09:45 Dose: 100 mg Tamsulosin HCl (Flomax -) 0.4 mg PO DAILY@0830 [facility] Last Admin: 11/23/17 09:45 Dose: 0.4 mg - Objective Vital Signs: Vital Signs Temperature 99.8 F H 11/23/17 23:00 Pulse Rate 110 H 11/23/17 23:00 Respiratory Rate 36 H 11/23/17 23:00 Blood Pressure 134/79 11/23/17 23:00 O2 Sat by Pulse Oximetry (%) 94 L 11/24/17 00:14 Labs: CBC, BMP 11/23/17 21:00 11/23/17 21:00 INR, PTT INR 1.11 (0.83-1.09) H 11/21/17 11:26
[2017-11-24] MEDS: ALBUTEROL SO4 0.083% IH SOL 2.5 MG/3 ML VIAL.NEB. NEB PRN (02:00)
[2017-11-24] MEDS: INSULIN SLIDING SCALE (NOVOLOG) 1 VIAL SQ SCH ×4 (06:30→22:38)
[2017-11-24 07:49] LABS: ANION GAP 5 MMOL/L (8-16); BLOOD UREA NITROGEN 27 mg/dL (7-18); CALCIUM 8.5 mg/dL (8.5-10.1); CHLORIDE 110 mmol/L (98-107); CO2 29 mmol/L (21-32); CREATININE 0.9 mg/dL (0.55-1.3); GLUCOSE,RANDOM 172 mg/dL (74-106); HEMATOCRIT 39.8 % (35.4-49); HEMOGLOBIN 12.8 GM/dL (11.7-16.9); MAGNESIUM 1.9 mg/dL (1.8-2.4); MCH 29.9 pg (25.7-33.7); MCHC 32.1 g/dl (32.0-35.9); MEAN CELL VOLUME 93.1 fl (80-96); MEAN PLT VOLUME 9.3 fl (7.5-11.1); PHOSPHOROUS 3.4 mg/dL (2.5-4.9); PLATELET COUNT 140 K/MM3 (134-434); POTASSIUM 3.4 mmol/L (3.5-5.1); RBC 4.27 M/mm3 (4.00-5.60); RDW 15.4 % (11.9-15.9); SODIUM 144 mmol/L (136-145); WHITE BLOOD COUNT 11.9 K/mm3 (4.0-10.0)
[2017-11-24] MEDS ORDERED: POTASSIUM CHLORIDE TABS 20 MEQ TABLET.ER (FP) PO ONE (07:53)
[2017-11-24] MEDS: ALBUTEROL SO4 2.5/IPRATROPIUM 0.5 INH SOL 3 ML VIAL.NEB. NEB SCH ×4 (08:15→20:02)
[2017-11-24] MEDS: LOSARTAN POTASSIUM 50 MG TABLET (FP) PO SCH (09:45)
[2017-11-24] MEDS: HYDROCHLOROTHIAZIDE 25 MG TABLET (FP) PO SCH (09:45)
[2017-11-24] MEDS: amLODIPine BESYLATE 10 MG TABLET (FP) PO SCH (09:46)
[2017-11-24] MEDS: ENOXAPARIN NA (PORCINE) 40 MG/0.4 ML DISP.SYRIN SQ SCH (09:46)
[2017-11-24] MEDS: TAMSULOSIN HCL 0.4 MG CAP PO SCH (09:46)
[2017-11-24] MEDS ORDERED: PT OWN MED DRAWER 7, Y5N ONE (09:50)
[2017-11-24 10:07] LABS: ARTERIAL BLOOD GAS BASE EXCESS 4.9 meq/l (-2-2); ARTERIAL BLOOD GAS PCO2 44.1 mmHg (35-45); ARTERIAL BLOOD GAS PO2 72.9 mmHg (80-100); ARTERIAL BLOOD GAS pH 7.44 (7.35-7.45)
[2017-11-24] MEDS: ALLOPURINOL 300 MG TABLET (FP) PO SCH (10:08)
[2017-11-24 10:13] LABS: ALLENS TEST POSITIVE
[2017-11-24] MEDS: FUROSEMIDE 40 MG/4 ML INJECTABLE VIAL IVPUSH SCH ×2 (12:08→17:16)
--- NOTE | 2017-11-24 12:19 | PN ---
Teaching Attending Note Name of Resident: James Vasquez ATTENDING PHYSICIAN STATEMENT I saw and evaluated the patient. I reviewed the resident's note and discussed the case with the resident. I agree with the resident's findings and plan as documented. SUBJECTIVE: Pt seen and examined in the ICU. Transferred down to ICU for acute hypoxic respiratory failure requiring BiPAP 100% FiO2. CXR with increasing congestion. OBJECTIVE: Vital Signs Period Temp Pulse Resp BP Sys/Paul Pulse Ox Last 24 Hr 98.2 F-99.8 F 97-121 20-46 102-153/69-95 8-95 Intake & Output 11/21/17 11/22/17 11/23/17 11/24/17 23:59 23:59 23:59 23:59 Intake Total 410 2436 3085 50 Output Total 600 1320 1600 Balance 410 1836 1765 -1550 Weight 81.647 kg Gen: tachypneic on BiPAP Heart: RRR Lung: scattered rhonchi Abd: soft, nontender Ext: no edema CBC, BMP 11/24/17 05:30 11/24/17 05:30 Active Medications Acetaminophen (Tylenol -) 650 mg PO Q6H PRN PRN Reason: PAIN OR FEVER Albuterol Sulfate (Ventolin 0.083% Nebulizer Soln -) 1 amp NEB Q4H PRN PRN Reason: SHORT OF BREATH/WHEEZING Last Admin: 11/24/17 02:00 Dose: 1 amp Albuterol/Ipratropium (Duoneb -) 1 amp NEB RQID [facility] Last Admin: 11/24/17 11:20 Dose: 1 amp Allopurinol (Zyloprim -) 300 mg PO DAILY [facility] Last Admin: 11/24/17 10:08 Dose: 300 mg Amlodipine Besylate (Norvasc -) 10 mg PO DAILY [facility] Last Admin: 11/24/17 09:46 Dose: 10 mg Enoxaparin Sodium (Lovenox -) 40 mg SQ DAILY [facility] Last Admin: 11/24/17 09:46 Dose: 40 mg Furosemide (Lasix Injection -) 40 mg IVPUSH BID@1120,1800 [facility] Last Admin: 11/24/17 12:08 Dose: 40 mg Hydrochlorothiazide (Hctz -) 25 mg PO DAILY [facility] Last Admin: 11/24/17 09:45 Dose: 25 mg Piperacillin Sod/Tazobactam (Sod 3.375 gm/ Dextrose) 50 mls @ 100 mls/hr IVPB Q8H-IV [facility]; Protocol Last Admin: 11/24/17 09:45 Dose: 100 mls/hr Insulin Aspart (Novolog Vial Sliding Scale -) 0 vial SQ ACHS [facility]; Protocol Last Admin: 11/24/17 12:13 Dose: 4 units Losartan Potassium (Cozaar -) 100 mg PO DAILY [facility] Last Admin: 11/24/17 09:45 Dose: 100 mg Methylprednisolone Sodium Succinate (Solu-Medrol -) 40 mg IVPUSH Q8H-IV [facility] Last Admin: 11/24/17 09:45 Dose: 40 mg Metoprolol Succinate (Toprol Xl -) 100 mg PO DAILY [facility] Last Admin: 11/24/17 11:54 Dose: 100 mg Tamsulosin HCl (Flomax -) 0.4 mg PO DAILY@0830 [facility] Last Admin: 11/24/17 09:46 Dose: 0.4 mg ASSESSMENT AND PLAN: Acute on Chronic Hypoxic Respiratory Failure Pneumonia Sepsis Volume Overload Interstitial Lung Disease HTN DM BPH - lasix BID today - monitor urine output, creatinine - replete lytes - monitor CXR - continue antibiotics - continue empiric medrol - inhaled bronchodilators - O2 to keep SpO2 >90%, can try HFOT - continue ICU monitoring critical care time spent in reviewing chart, evaluating patient and formulating plan 35 min
--- NOTE | 2017-11-24 14:43 | PN ---
Physical Exam: SUBJECTIVE: Patient seen and examined. Gave 40mg Lasix. Discontinued IVF. Uses 2L NC at home periodically, does not use BiPAP. Pt. endorses feeling dizzy dysneic on exertion. OBJECTIVE: Vital Signs Period Temp Pulse Resp BP Sys/Paul Pulse Ox Last 24 Hr 98.2 F-99.8 F 97-121 20-46 102-153/69-95 8-95 GENERAL: The patient is awake, alert, and fully oriented, in mild respiratory distress. HEAD: Normal with no signs of trauma. EYES: PERRL, sclera anicteric, conjunctiva clear. No ptosis. ENT: Ears normal, nares patent, oropharynx clear without exudates, moist mucous membranes. NECK: Trachea midline, full range of motion, supple. LUNGS: Mechanical ventilation, no wheezes, Bilateral bibasilar crackles L>R, minimal accessory muscle use. HEART: Tachcardic, regular rate and rhythm, S1, S2 without murmur ABDOMEN: Soft, nontender, nondistended, bowel sounds sluggish, no guarding, no rebound, no hepatosplenomegaly, no masses. EXTREMITIES: 2+ dorsal pedal and radial pulses, warm, well-perfused, no edema, no calf tenderness. NEUROLOGICAL: Normal speech, gait not observed. PSYCH: Normal mood, normal affect. SKIN: Warm, dry, normal turgor, no rashes or lesions noted Laboratory Results - last 24 hr 11/23/17 11/23/17 11/23/17 16:23 20:15 21:00 WBC 14.3 H RBC 4.27 Hgb 12.9 Hct 39.8 MCV 93.3 MCH 30.3 MCHC 32.5 RDW 15.2 Plt Count 154 MPV 8.8 Absolute Neuts (auto) 13.4 H Total Counted 100 Neutrophils % No Result Required. Neutrophils % (Manual) 93.0 H Lymphocytes % No Result Required. Lymphocytes % (Manual) 5.0 L D Monocytes % (Manual) 2 L Nucleated RBC % 0 Platelet Estimate Adequate Anticoagulation Therapy No Result Required. Puncture Site Right radial ABG pH 7.43 ABG pCO2 at Pt Temp 38.8 D ABG pO2 at Pt Temp 56.1 L D ABG HCO3 25.2 ABG O2 Sat (Measured) 88.7 L ABG O2 Content 15.6 ABG Base Excess 1.4 Bassem Test Positive O2 Delivery Device Bipap Oxygen Flow Rate 60% Vent Mode No Result Required. Vent Rate No Result Required. Mechanical Rate No Result Required. PEEP Pressure Support Vent No Result Required. Sodium Potassium Chloride Carbon Dioxide Anion Gap BUN Creatinine Creat Clearance w eGFR POC Glucometer 215 Random Glucose Lactic Acid Calcium Phosphorus Magnesium Total Bilirubin AST ALT Alkaline Phosphatase Total Protein Albumin 11/23/17 11/23/17 11/23/17 21:00 21:00 22:22 WBC RBC Hgb Hct MCV MCH MCHC RDW Plt Count MPV Absolute Neuts (auto) Total Counted Neutrophils % Neutrophils % (Manual) Lymphocytes % Lymphocytes % (Manual) Monocytes % (Manual) Nucleated RBC % Platelet Estimate Anticoagulation Therapy Puncture Site ABG pH ABG pCO2 at Pt Temp ABG pO2 at Pt Temp ABG HCO3 ABG O2 Sat (Measured) ABG O2 Content ABG Base Excess Bassem Test O2 Delivery Device Oxygen Flow Rate Vent Mode Vent Rate Mechanical Rate PEEP Pressure Support Vent Sodium 143 Potassium 3.8 Chloride 113 H Carbon Dioxide 26 Anion Gap 5 L BUN 27 H Creatinine 1.0 Creat Clearance w eGFR > 60 POC Glucometer 146 Random Glucose 118 H Lactic Acid 1.7 Calcium 8.7 Phosphorus 2.0 L Magnesium 1.9 Total Bilirubin 0.7 AST 73 H ALT 72 H Alkaline Phosphatase 74 Total Protein 6.6 Albumin 2.9 L 11/24/17 11/24/17 11/24/17 05:30 05:30 05:52 WBC 11.9 H RBC 4.27 Hgb 12.8 Hct 39.8 MCV 93.1 MCH 29.9 MCHC 32.1 RDW 15.4 Plt Count 140 MPV 9.3 Absolute Neuts (auto) Total Counted Neutrophils % Neutrophils % (Manual) Lymphocytes % Lymphocytes % (Manual) Monocytes % (Manual) Nucleated RBC % Platelet Estimate Anticoagulation Therapy Puncture Site ABG pH ABG pCO2 at Pt Temp ABG pO2 at Pt Temp ABG HCO3 ABG O2 Sat (Measured) ABG O2 Content ABG Base Excess Bassem Test O2 Delivery Device Oxygen Flow Rate Vent Mode Vent Rate Mechanical Rate PEEP Pressure Support Vent Sodium 144 Potassium 3.4 L Chloride 110 H Carbon Dioxide 29 Anion Gap 5 L BUN 27 H Creatinine 0.9 Creat Clearance w eGFR > 60 POC Glucometer 198.35665 Random Glucose 172 H Lactic Acid Calcium 8.5 Phosphorus 3.4 Magnesium 1.9 Total Bilirubin AST ALT Alkaline Phosphatase Total Protein Albumin 10/04/18 10/04/18 10:02 12:07 WBC RBC Hgb Hct MCV MCH MCHC RDW Plt Count MPV Absolute Neuts (auto) Total Counted Neutrophils % Neutrophils % (Manual) Lymphocytes % Lymphocytes % (Manual) Monocytes % (Manual) Nucleated RBC % Platelet Estimate Anticoagulation Therapy Puncture Site Right radial ABG pH 7.44 ABG pCO2 at Pt Temp 44.1 ABG pO2 at Pt Temp 72.9 L D ABG HCO3 29.3 H ABG O2 Sat (Measured) 94.0 ABG O2 Content 17.1 ABG Base Excess 4.9 H Bassem Test Positive O2 Delivery Device Bipap Oxygen Flow Rate 100% Vent Mode S/t Vent Rate 14 Mechanical Rate Yes PEEP 0.0 Pressure Support Vent [id number]/epap6 Sodium Potassium Chloride Carbon Dioxide Anion Gap BUN Creatinine Creat Clearance w eGFR POC Glucometer 211.20951 Random Glucose Lactic Acid Calcium Phosphorus Magnesium Total Bilirubin AST ALT Alkaline Phosphatase Total Protein Albumin Active Medications Current Medications Acetaminophen (Tylenol -) 650 mg PO Q6H PRN PRN Reason: PAIN OR FEVER Albuterol Sulfate (Ventolin 0.083% Nebulizer Soln -) 1 amp NEB Q4H PRN PRN Reason: SHORT OF BREATH/WHEEZING Last Admin: 11/24/17 02:00 Dose: 1 amp Albuterol/Ipratropium (Duoneb -) 1 amp NEB RQID [facility] Last Admin: 11/24/17 11:20 Dose: 1 amp Allopurinol (Zyloprim -) 300 mg PO DAILY [facility] Last Admin: 11/24/17 10:08 Dose: 300 mg Amlodipine Besylate (Norvasc -) 10 mg PO DAILY [facility] Last Admin: 11/24/17 09:46 Dose: 10 mg Enoxaparin Sodium (Lovenox -) 40 mg SQ DAILY [facility] Last Admin: 11/24/17 09:46 Dose: 40 mg Furosemide (Lasix Injection -) 40 mg IVPUSH BID@1120,1800 [facility] Last Admin: 11/24/17 12:08 Dose: 40 mg Hydrochlorothiazide (Hctz -) 25 mg PO DAILY [facility] Last Admin: 11/24/17 09:45 Dose: 25 mg Piperacillin Sod/Tazobactam (Sod 3.375 gm/ Dextrose) 50 mls @ 100 mls/hr IVPB Q8H-IV [facility]; Protocol Last Admin: 11/24/17 09:45 Dose: 100 mls/hr Insulin Aspart (Novolog Vial Sliding Scale -) 0 vial SQ ACHS [facility]; Protocol Last Admin: 11/24/17 12:13 Dose: 4 units Losartan Potassium (Cozaar -) 100 mg PO DAILY [facility] Last Admin: 11/24/17 09:45 Dose: 100 mg Methylprednisolone Sodium Succinate (Solu-Medrol -) 40 mg IVPUSH Q8H-IV [facility] Last Admin: 11/24/17 09:45 Dose: 40 mg Metoprolol Succinate (Toprol Xl -) 100 mg PO DAILY [facility] Last Admin: 11/24/17 11:54 Dose: 100 mg Tamsulosin HCl (Flomax -) 0.4 mg PO DAILY@0830 [facility] Last Admin: 11/24/17 09:46 Dose: 0.4 mg ASSESSMENT/PLAN: A 67 y.o. M w/ PMHx. ILD, chronic hypoxic respiratory failure (on 2L NC at home) , recurrent PNA, SLE/lupus, HTN, DM2, BPH, presents to the ICU with acute hypoxic respiratory failure 2/2 PNA and hypervolemia #Pulmonology -Acute hypoxic respiratory failure 2/2 PNA and hypervolemia Started Lasix 40mg BID monitor Cr. c/w Zosyn- Day 4 of Abx. c/w BiPAP/HiFlow NC to keep SpO2 >85% per Dr. Omer. c/w Solu-medrol 40mg Q8H c/w Duonebs c/w ventolin Neb #Gastroenterology -Diverticulosis -stable monitor for bleeding and worsening abdominal pain monitor stool for constipation #Infectious Disease -Sepsis 2/2 PNA c/w Zosyn #Cardiology -HTN c/w Losartan 100mg, Norvasc, 10mg and Metoprolol 100mg #Urology -BPH c/w Flomax #Endocrinology -DM2 ISS BGM #F/E/N -D/C IVF, restrict fluids -monitor electrolytes and replete as needed -Diabetic diet #PPx. -DVT Lovenox SQ Visit type - Emergency Visit Emergency Visit: Yes ED Registration Date: 11/21/17 Care time: The patient presented to the Emergency Department on the above date and was hospitalized for further evaluation of their emergent condition. - New Patient This patient is new to me today: No - Critical Care Critical Care patient: Yes Total Critical Care Time (in minutes): 38 Critical Care Statement: The care of this patient involved high complexity decision making to prevent further life threatening deterioration of the patient 's condition and/or to evaluate & treat vital organ system(s) failure or risk of failure. - Discharge Referral Referred to [facility] No
--- NOTE | 2017-11-24 15:24 | PN ---
Progress Note, Physician History of Present Illness: events noted patient with more resp distress transferred to icu now on high flow oxygen still very sob - Current Medication List Current Medications: Active Medications Acetaminophen (Tylenol -) 650 mg PO Q6H PRN PRN Reason: PAIN OR FEVER Albuterol Sulfate (Ventolin 0.083% Nebulizer Soln -) 1 amp NEB Q4H PRN PRN Reason: SHORT OF BREATH/WHEEZING Last Admin: 11/24/17 02:00 Dose: 1 amp Albuterol/Ipratropium (Duoneb -) 1 amp NEB RQID [facility] Last Admin: 11/24/17 11:20 Dose: 1 amp Allopurinol (Zyloprim -) 300 mg PO DAILY [facility] Last Admin: 11/24/17 10:08 Dose: 300 mg Amlodipine Besylate (Norvasc -) 10 mg PO DAILY [facility] Last Admin: 11/24/17 09:46 Dose: 10 mg Enoxaparin Sodium (Lovenox -) 40 mg SQ DAILY [facility] Last Admin: 11/24/17 09:46 Dose: 40 mg Furosemide (Lasix Injection -) 40 mg IVPUSH BID@1120,1800 [facility] Last Admin: 11/24/17 12:08 Dose: 40 mg Hydrochlorothiazide (Hctz -) 25 mg PO DAILY [facility] Last Admin: 11/24/17 09:45 Dose: 25 mg Piperacillin Sod/Tazobactam (Sod 3.375 gm/ Dextrose) 50 mls @ 100 mls/hr IVPB Q8H-IV [facility]; Protocol Last Admin: 11/24/17 09:45 Dose: 100 mls/hr Insulin Aspart (Novolog Vial Sliding Scale -) 0 vial SQ ACHS [facility]; Protocol Last Admin: 11/24/17 12:13 Dose: 4 units Losartan Potassium (Cozaar -) 100 mg PO DAILY [facility] Last Admin: 11/24/17 09:45 Dose: 100 mg Methylprednisolone Sodium Succinate (Solu-Medrol -) 40 mg IVPUSH Q8H-IV [facility] Last Admin: 11/24/17 09:45 Dose: 40 mg Metoprolol Succinate (Toprol Xl -) 100 mg PO DAILY [facility] Last Admin: 11/24/17 11:54 Dose: 100 mg Tamsulosin HCl (Flomax -) 0.4 mg PO DAILY@0830 [facility] Last Admin: 11/24/17 09:46 Dose: 0.4 mg - Objective Vital Signs: Vital Signs Temperature 98.6 F 11/24/17 14:00 Pulse Rate 115 H 11/24/17 14:00 Respiratory Rate 30 H 11/24/17 14:00 Blood Pressure 137/68 11/24/17 14:00 O2 Sat by Pulse Oximetry (%) 87 L 11/24/17 12:05 Constitutional: Yes: Calm, Mild Distress Cardiovascular: Yes: Regular Rate and Rhythm Respiratory: Yes: Other (high flow nasal oxygen) Gastrointestinal: Yes: Normal Bowel Sounds, Soft Musculoskeletal: Yes: WNL Extremities: Yes: WNL Neurological: Yes: Alert, Oriented Psychiatric: Yes: Alert, Oriented Labs: CBC, BMP 11/24/17 05:30 11/24/17 05:30 INR, PTT INR 1.11 (0.83-1.09) H 11/21/17 11:26 - ....Imaging Chest X-ray: Report Reviewed, Image Reviewed Assessment/Plan Respiratory Failure Pneumonia Sepsis Interstitial Lung Disease HTN DM BPH plan will continue zosyn await for repeat blood cx resp support rest as per icu cc 37 min
--- NOTE | 2017-11-24 16:28 | PN ---
Progress Note, Physician History of Present Illness: on bipap - Current Medication List Current Medications: Active Medications Acetaminophen (Tylenol -) 650 mg PO Q6H PRN PRN Reason: PAIN OR FEVER Albuterol Sulfate (Ventolin 0.083% Nebulizer Soln -) 1 amp NEB Q4H PRN PRN Reason: SHORT OF BREATH/WHEEZING Last Admin: 11/24/17 02:00 Dose: 1 amp Albuterol/Ipratropium (Duoneb -) 1 amp NEB RQID [facility] Last Admin: 11/24/17 15:48 Dose: 1 amp Allopurinol (Zyloprim -) 300 mg PO DAILY [facility] Last Admin: 11/24/17 10:08 Dose: 300 mg Amlodipine Besylate (Norvasc -) 10 mg PO DAILY [facility] Last Admin: 11/24/17 09:46 Dose: 10 mg Enoxaparin Sodium (Lovenox -) 40 mg SQ DAILY [facility] Last Admin: 11/24/17 09:46 Dose: 40 mg Furosemide (Lasix Injection -) 40 mg IVPUSH BID@1120,1800 [facility] Last Admin: 11/24/17 12:08 Dose: 40 mg Hydrochlorothiazide (Hctz -) 25 mg PO DAILY [facility] Last Admin: 11/24/17 09:45 Dose: 25 mg Piperacillin Sod/Tazobactam (Sod 3.375 gm/ Dextrose) 50 mls @ 100 mls/hr IVPB Q8H-IV [facility]; Protocol Last Admin: 11/24/17 09:45 Dose: 100 mls/hr Insulin Aspart (Novolog Vial Sliding Scale -) 0 vial SQ ACHS [facility]; Protocol Last Admin: 11/24/17 12:13 Dose: 4 units Losartan Potassium (Cozaar -) 100 mg PO DAILY [facility] Last Admin: 11/24/17 09:45 Dose: 100 mg Methylprednisolone Sodium Succinate (Solu-Medrol -) 40 mg IVPUSH Q8H-IV [facility] Last Admin: 11/24/17 09:45 Dose: 40 mg Metoprolol Succinate (Toprol Xl -) 100 mg PO DAILY [facility] Last Admin: 11/24/17 11:54 Dose: 100 mg Tamsulosin HCl (Flomax -) 0.4 mg PO DAILY@0830 [facility] Last Admin: 11/24/17 09:46 Dose: 0.4 mg - Objective Vital Signs: Vital Signs Temperature 98.6 F 10/04/18 14:00 Pulse Rate 115 H 11/24/17 14:00 Respiratory Rate 30 H 11/24/17 14:00 Blood Pressure 137/68 11/24/17 14:00 O2 Sat by Pulse Oximetry (%) 87 L 11/24/17 12:05 Constitutional: Yes: No Distress HENT: Yes: Atraumatic Neck: Yes: Supple Cardiovascular: Yes: Regular Rate and Rhythm Respiratory: Yes: Rhonchi Gastrointestinal: Yes: Normal Bowel Sounds Extremities: Yes: WNL Edema: No Peripheral Pulses WNL: Yes Neurological: Yes: Alert Labs: CBC, BMP 11/24/17 05:30 11/24/17 05:30 INR, PTT INR 1.11 (0.83-1.09) H 11/21/17 11:26 Problem List - Problems (1) Acute respiratory failure with hypoxia Assessment/Plan: on bipap doing better Code(s): J96.01 - ACUTE RESPIRATORY FAILURE WITH HYPOXIA (2) Pneumonia Assessment/Plan: on iv abx duo nebs bcxs sent Code(s): J18.9 - PNEUMONIA, UNSPECIFIED ORGANISM Qualifiers: Lung location: unspecified part of lung (3) SLE (systemic lupus erythematosus) Code(s): M32.9 - SYSTEMIC LUPUS ERYTHEMATOSUS, UNSPECIFIED Qualifiers: Systemic lupus erythematosus organ involvement: unspecified (4) Sepsis Assessment/Plan: on iv abx ivf if needed bcxs and u cxs sent Code(s): A41.9 - SEPSIS, UNSPECIFIED ORGANISM Qualifiers: Sepsis type: sepsis due to unspecified organism Qualified Code(s): A41.9 - Sepsis, unspecified organism Assessment/Plan icu cc time 35 min
[2017-11-25] MEDS: methylPREDNISolone NA SUCC 40 MG/1 ML VIAL IVPUSH SCH ×3 (03:09→17:53)
[2017-11-25] MEDS: PIPERACILLIN/TAZOB 3.375 GM 3.375 GM in DEXTROSE 5%-WATER - 50 ML IVPB SCH ×3 (03:09→23:30)
[2017-11-25] MEDS: INSULIN SLIDING SCALE (NOVOLOG) 1 VIAL SQ SCH ×4 (06:46→22:00)
[2017-11-25] MEDS: ALBUTEROL SO4 2.5/IPRATROPIUM 0.5 INH SOL 3 ML VIAL.NEB. NEB SCH ×4 (07:40→20:00)
[2017-11-25] MEDS ORDERED: FUROSEMIDE 40 MG/4 ML INJECTABLE VIAL IVPUSH ONE (08:29)
[2017-11-25 08:30] LABS: HEMOGLOBIN 14.4 GM/dL (11.7-16.9); MCH 30.4 pg (25.7-33.7); MCHC 32.8 g/dl (32.0-35.9); MEAN CELL VOLUME 92.8 fl (80-96); MEAN PLT VOLUME 9.1 fl (7.5-11.1); PLATELET COUNT 163 K/MM3 (134-434); RBC 4.74 M/mm3 (4.00-5.60); RDW 15.2 % (11.9-15.9); WHITE BLOOD COUNT 15.7 K/mm3 (4.0-10.0)
[2017-11-25 08:43] LABS: ANION GAP 7 MMOL/L (8-16); BLOOD UREA NITROGEN 37 mg/dL (7-18); CALCIUM 9.6 mg/dL (8.5-10.1); CHLORIDE 103 mmol/L (98-107); CO2 35 mmol/L (21-32); CREATININE 1.3 mg/dL (0.55-1.3); GLUCOSE,RANDOM 146 mg/dL (74-106); MAGNESIUM 1.7 mg/dL (1.8-2.4); POTASSIUM 3.4 mmol/L (3.5-5.1); SODIUM 145 mmol/L (136-145)
[2017-11-25] MEDS ORDERED: PIPERACILLIN/TAZOBACTAM 3.375 GM VIAL IVPB ONE (09:27)
[2017-11-25] MEDS ORDERED: PT OWN MED DRAWER 7, Y5N ONE (09:27)
[2017-11-25] MEDS: TAMSULOSIN HCL 0.4 MG CAP PO SCH (09:32)
[2017-11-25] MEDS: LOSARTAN POTASSIUM 50 MG TABLET (FP) PO SCH (09:32)
[2017-11-25] MEDS: HYDROCHLOROTHIAZIDE 25 MG TABLET (FP) PO SCH (09:33)
[2017-11-25] MEDS: ENOXAPARIN NA (PORCINE) 40 MG/0.4 ML DISP.SYRIN SQ SCH (09:33)
[2017-11-25] MEDS: amLODIPine BESYLATE 10 MG TABLET (FP) PO SCH (09:33)
[2017-11-25] MEDS: ALLOPURINOL 300 MG TABLET (FP) PO SCH (09:35)
[2017-11-25] MEDS ORDERED: MAGNESIUM SULF 50% (8.12 MEQ/2 ML-1 GM VIAL) IVPB ONE (10:30)
[2017-11-25] MEDS ORDERED: MAGNESIUM SULF 50% (8.12 MEQ/2 ML-1 GM VIAL) ONE (11:04)
--- NOTE | 2017-11-25 11:46 | PN ---
Progress Note, Physician History of Present Illness: patient feeling slightly better still requiring resp support no other issues daughter in room - Current Medication List Current Medications: Active Medications Acetaminophen (Tylenol -) 650 mg PO Q6H PRN PRN Reason: PAIN OR FEVER Albuterol Sulfate (Ventolin 0.083% Nebulizer Soln -) 1 amp NEB Q4H PRN PRN Reason: SHORT OF BREATH/WHEEZING Last Admin: 11/24/17 02:00 Dose: 1 amp Albuterol/Ipratropium (Duoneb -) 1 amp NEB RQID [facility] Last Admin: 11/25/17 11:08 Dose: 1 amp Allopurinol (Zyloprim -) 300 mg PO DAILY [facility] Last Admin: 11/25/17 09:35 Dose: 300 mg Amlodipine Besylate (Norvasc -) 10 mg PO DAILY [facility] Last Admin: 11/25/17 09:33 Dose: 10 mg Enoxaparin Sodium (Lovenox -) 40 mg SQ DAILY [facility] Last Admin: 11/25/17 09:33 Dose: 40 mg Furosemide (Lasix Injection -) 40 mg IVPUSH BID@1120,1800 [facility] Last Admin: 11/24/17 17:16 Dose: 40 mg Hydrochlorothiazide (Hctz -) 25 mg PO DAILY [facility] Last Admin: 11/25/17 09:33 Dose: 25 mg Insulin Aspart (Novolog Vial Sliding Scale -) 0 vial SQ ACHS [facility]; Protocol Last Admin: 11/25/17 10:28 Dose: 2 units Losartan Potassium (Cozaar -) 100 mg PO DAILY [facility] Last Admin: 11/25/17 09:32 Dose: 100 mg Methylprednisolone Sodium Succinate (Solu-Medrol -) 40 mg IVPUSH Q8H-IV [facility] Last Admin: 11/25/17 09:33 Dose: 40 mg Metoprolol Succinate (Toprol Xl -) 100 mg PO DAILY [facility] Last Admin: 11/25/17 09:34 Dose: 100 mg Tamsulosin HCl (Flomax -) 0.4 mg PO DAILY@0830 [facility] Last Admin: 11/25/17 09:32 Dose: 0.4 mg - Objective Vital Signs: Vital Signs Temperature 98.6 F 11/25/17 10:00 Pulse Rate 111 H 11/25/17 10:00 Respiratory Rate 32 H 11/25/17 10:00 Blood Pressure 118/71 11/25/17 10:00 O2 Sat by Pulse Oximetry (%) 88 L 11/25/17 11:08 Constitutional: Yes: No Distress, Calm Cardiovascular: Yes: Regular Rate and Rhythm Respiratory: Yes: Poor Air Entry, Other (on high flow oxygen) Gastrointestinal: Yes: Normal Bowel Sounds, Soft Musculoskeletal: Yes: WNL Extremities: Yes: WNL Neurological: Yes: Alert, Oriented Psychiatric: Yes: Alert, Oriented Labs: CBC, BMP 11/25/17 07:46 11/25/17 07:46 INR, PTT INR 1.11 (0.83-1.09) H 11/21/17 11:26 Assessment/Plan Respiratory Failure Pneumonia Sepsis Interstitial Lung Disease HTN DM BPH patient repeat blood cx are negative plan continue current management will stop abx patient continues to improve rest as per icu resp support cc 38 min
--- NOTE | 2017-11-25 14:03 | PN ---
Teaching Attending Note Name of Resident: James Vasquez ATTENDING PHYSICIAN STATEMENT I saw and evaluated the patient. I reviewed the resident's note and discussed the case with the resident. I agree with the resident's findings and plan as documented. SUBJECTIVE: Patient seen and examined in the ICU. Awake and alert on HFOT, 100%. Mildly tachypneic with speaking and O2 saturation low 90's. Denies CP. Still with cough but dry. No hemoptysis. Intake & Output 11/22/17 11/23/17 11/24/17 11/25/17 23:59 23:59 23:59 23:59 Intake Total 2436 3085 800 540 Output Total 600 1320 4300 1200 Balance 1836 1765 -3500 -660 Weight 176 lb 6 oz Last Vital Signs Temp Pulse Resp BP Pulse Ox 98.6 F 120 H 28 H 116/74 88 L 11/25/17 10:00 11/25/17 12:00 11/25/17 12:00 11/25/17 12:00 11/25/17 11:08 Active Medications Acetaminophen (Tylenol -) 650 mg PO Q6H PRN PRN Reason: PAIN OR FEVER Albuterol Sulfate (Ventolin 0.083% Nebulizer Soln -) 1 amp NEB Q4H PRN PRN Reason: SHORT OF BREATH/WHEEZING Last Admin: 11/24/17 02:00 Dose: 1 amp Albuterol/Ipratropium (Duoneb -) 1 amp NEB RQID [facility] Last Admin: 11/25/17 11:08 Dose: 1 amp Allopurinol (Zyloprim -) 300 mg PO DAILY [facility] Last Admin: 11/25/17 09:35 Dose: 300 mg Amlodipine Besylate (Norvasc -) 10 mg PO DAILY [facility] Last Admin: 11/25/17 09:33 Dose: 10 mg Enoxaparin Sodium (Lovenox -) 40 mg SQ DAILY [facility] Last Admin: 11/25/17 09:33 Dose: 40 mg Furosemide (Lasix Injection -) 40 mg IVPUSH BID@1120,1800 [facility] Last Admin: 11/24/17 17:16 Dose: 40 mg Hydrochlorothiazide (Hctz -) 25 mg PO DAILY [facility] Last Admin: 11/25/17 09:33 Dose: 25 mg Insulin Aspart (Novolog Vial Sliding Scale -) 0 vial SQ ACHS [facility]; Protocol Last Admin: 11/25/17 10:28 Dose: 2 units Losartan Potassium (Cozaar -) 100 mg PO DAILY [facility] Last Admin: 11/25/17 09:32 Dose: 100 mg Methylprednisolone Sodium Succinate (Solu-Medrol -) 40 mg IVPUSH Q8H-IV [facility] Last Admin: 11/25/17 09:33 Dose: 40 mg Metoprolol Succinate (Toprol Xl -) 100 mg PO DAILY [facility] Last Admin: 11/25/17 09:34 Dose: 100 mg Tamsulosin HCl (Flomax -) 0.4 mg PO DAILY@0830 [facility] Last Admin: 11/25/17 09:32 Dose: 0.4 mg Gen: Mildly tachypneic on HFOT Heart: RRR Lung: Bilateral coarse crackles / rhonchi Abd: soft, nontender Ext: no edema Laboratory Results - last 24 hr 11/24/17 11/24/17 11/25/17 17:12 22:30 06:05 WBC RBC Hgb Hct MCV MCH MCHC RDW Plt Count MPV Sodium Potassium Chloride Carbon Dioxide Anion Gap BUN Creatinine Creat Clearance w eGFR POC Glucometer 191.85360 179.43926 204.06710 Random Glucose Calcium Phosphorus Magnesium 11/25/17 11/25/17 11/25/17 07:46 07:46 09:43 WBC 15.7 H RBC 4.74 Hgb 14.4 Hct 44.0 MCV 92.8 MCH 30.4 MCHC 32.8 RDW 15.2 Plt Count 163 MPV 9.1 Sodium 145 Potassium 3.4 L Chloride 103 Carbon Dioxide 35 H Anion Gap 7 L BUN 37 H Creatinine 1.3 Creat Clearance w eGFR 54.73 POC Glucometer 165.54068 Random Glucose 146 H Calcium 9.6 Phosphorus 3.0 Magnesium 1.7 L ASSESSMENT AND PLAN: Acute on Chronic Hypoxic Respiratory Failure Pneumonia Sepsis Volume Overload Interstitial Lung Disease HTN DM BPH - Attempt to wean HFOT - Lasix - monitor urine output, creatinine - replete lytes - monitor CXR - ABX - Continue medrol - inhaled bronchodilators - Will need further discussions with the patient/family regarding GOC given advanced/end stage ILD - continue ICU monitoring due to tenuous respiratory status Dr Javier Critical care time spent in reviewing chart, evaluating patient and formulating plan 35 min
--- NOTE | 2017-11-25 14:19 | PN ---
Physical Exam: SUBJECTIVE: Patient seen and examined. Pt. had overnight desaturations to the 70s with minimal activity. Pt denies any symptoms and specifically denied dizziness, blurry vision, palpitations, numbness and tingling, worsening shortness of breath, weakness abdominal pain or chest pain. Pt. endorses BiPAP machine as uncomfortable. Attempted to switch to Hi-Flow NC this afternoon, however Pt. desaturated to 70s after ~30min. Pt. placed back on BiPAP with prior settings. OBJECTIVE: Vital Signs Period Temp Pulse Resp BP Sys/Paul Pulse Ox Last 24 Hr 98.6 F-99.2 F 110-121 24-36 116-146/63-86 85-92 GENERAL: The patient is awake, alert, and fully oriented, sitting up in mild distress. HEAD: Normal with no signs of trauma. EYES: sclera anicteric, conjunctiva clear. No ptosis. ENT: Ears normal, nares patent, oropharynx clear without exudates, moist mucous membranes. NECK: Trachea midline, full range of motion, supple. LUNGS: Mechanical ventilation, no wheezes, Diffuse crackles more prominent from mid lung to bibasilar bases, no accessory muscle use. HEART: Tachycardic, regular rate and rhythm, S1, S2 without murmur ABDOMEN: Soft, nontender, nondistended, bowel sound sluggish, no guarding, no rebound EXTREMITIES: 2+ dorsal pedal pulses, warm, well-perfused, no calf tenderness, no edema 3 sec. capillary refill. NEUROLOGICAL: Normal speech, gait not observed. PSYCH: Normal mood, normal affect. SKIN: Warm, dry, normal turgor, no rashes or lesions noted Laboratory Results - last 24 hr 11/24/17 11/24/17 11/25/17 17:12 22:30 06:05 WBC RBC Hgb Hct MCV MCH MCHC RDW Plt Count MPV Sodium Potassium Chloride Carbon Dioxide Anion Gap BUN Creatinine Creat Clearance w eGFR POC Glucometer 191.58078 179.61598 204.01734 Random Glucose Calcium Phosphorus Magnesium 11/25/17 11/25/17 11/25/17 07:46 07:46 09:43 WBC 15.7 H RBC 4.74 Hgb 14.4 Hct 44.0 MCV 92.8 MCH 30.4 MCHC 32.8 RDW 15.2 Plt Count 163 MPV 9.1 Sodium 145 Potassium 3.4 L Chloride 103 Carbon Dioxide 35 H Anion Gap 7 L BUN 37 H Creatinine 1.3 Creat Clearance w eGFR 54.73 POC Glucometer 165.07993 Random Glucose 146 H Calcium 9.6 Phosphorus 3.0 Magnesium 1.7 L Active Medications Current Medications Acetaminophen (Tylenol -) 650 mg PO Q6H PRN PRN Reason: PAIN OR FEVER Albuterol Sulfate (Ventolin 0.083% Nebulizer Soln -) 1 amp NEB Q4H PRN PRN Reason: SHORT OF BREATH/WHEEZING Last Admin: 11/24/17 02:00 Dose: 1 amp Albuterol/Ipratropium (Duoneb -) 1 amp NEB RQID [facility] Last Admin: 11/25/17 11:08 Dose: 1 amp Allopurinol (Zyloprim -) 300 mg PO DAILY [facility] Last Admin: 11/25/17 09:35 Dose: 300 mg Amlodipine Besylate (Norvasc -) 10 mg PO DAILY [facility] Last Admin: 11/25/17 09:33 Dose: 10 mg Enoxaparin Sodium (Lovenox -) 40 mg SQ DAILY [facility] Last Admin: 11/25/17 09:33 Dose: 40 mg Furosemide (Lasix Injection -) 40 mg IVPUSH BID@1120,1800 [facility] Last Admin: 11/24/17 17:16 Dose: 40 mg Hydrochlorothiazide (Hctz -) 25 mg PO DAILY [facility] Last Admin: 11/25/17 09:33 Dose: 25 mg Insulin Aspart (Novolog Vial Sliding Scale -) 0 vial SQ ACHS [facility]; Protocol Last Admin: 11/25/17 10:28 Dose: 2 units Losartan Potassium (Cozaar -) 100 mg PO DAILY [facility] Last Admin: 11/25/17 09:32 Dose: 100 mg Methylprednisolone Sodium Succinate (Solu-Medrol -) 40 mg IVPUSH Q8H-IV [facility] Last Admin: 11/25/17 09:33 Dose: 40 mg Metoprolol Succinate (Toprol Xl -) 100 mg PO DAILY [facility] Last Admin: 11/25/17 09:34 Dose: 100 mg Tamsulosin HCl (Flomax -) 0.4 mg PO DAILY@0830 [facility] Last Admin: 11/25/17 09:32 Dose: 0.4 mg ASSESSMENT/PLAN: A 67 y.o. M w/ PMHx. ILD, chronic hypoxic respiratory failure (on 2L NC at home) , recurrent PNA, SLE/lupus, HTN, DM2, BPH, presents to the ICU with acute hypoxic respiratory failure 2/2 PNA and hypervolemia. #Pulmonology -Acute hypoxic respiratory failure 2/2 PNA and hypervolemia Started Lasix 40mg BID monitor Cr. D/c Zosyn c/w BiPAP/HiFlow NC to keep SpO2 >85% per Dr. Omer. c/w Solu-medrol 40mg Q8H c/w Duonebs c/w ventolin Neb #Gastroenterology -Diverticulosis -stable monitor for bleeding and worsening abdominal pain monitor stool for constipation #Infectious Disease -Sepsis 2/2 PNA -resolved D/c Zosyn #Cardiology -HTN c/w Losartan 100mg, Norvasc, 10mg and Metoprolol 100mg #Urology -BPH c/w Flomax #Endocrinology -DM2 ISS BGM #F/E/N -D/C IVF, restrict fluids -monitor electrolytes and replete as needed -Diabetic diet #PPx. -DVT Lovenox SQ Visit type - Emergency Visit Emergency Visit: Yes ED Registration Date: 11/21/17 Care time: The patient presented to the Emergency Department on the above date and was hospitalized for further evaluation of their emergent condition. - New Patient This patient is new to me today: No - Critical Care Critical Care patient: Yes Total Critical Care Time (in minutes): 42 Critical Care Statement: The care of this patient involved high complexity decision making to prevent further life threatening deterioration of the patient 's condition and/or to evaluate & treat vital organ system(s) failure or risk of failure. - Discharge Referral Referred to [facility] Med [facility].C.: No
[2017-11-25] MEDS ORDERED: POTASSIUM CHLORIDE TABS 20 MEQ TABLET.ER (FP) PO ONE (17:20)
[2017-11-25] MEDS ORDERED: METOPROLOL TARTRATE 5 MG/5 ML VIAL IVPUSH ONE (17:27)
--- NOTE | 2017-11-25 17:41 | PN ---
Progress Note (short form) - Note Progress Note: Called by nurse due to patient desating in the mid 70s on high flow 100%FiO2 and flow of 60L. Patient was on BiPAP, although wanted to eat to put on high flow. Patient is currently desating in the low 70s and does not want to put BiPAP back on. Patient states "I'm fine, and will let you know if I need it." I discussed complications of anoxia including arrhythmia, brain injury and need for intubation. Patient is still refuses, but is not signing a DNR/DNI at this time.
[2017-11-25] MEDS ORDERED: FUROSEMIDE 40 MG/4 ML INJECTABLE VIAL ONE (17:51)
[2017-11-25] MEDS: KCL 10 MEQ IVPB 10 MEQ/100 ML INFUS.BAG IVPB SCH (17:52)
[2017-11-25] MEDS: FUROSEMIDE 40 MG/4 ML INJECTABLE VIAL IVPUSH SCH (18:05)
[2017-11-25] MEDS ORDERED: PROPOFOL 20 ML ONE (20:30)
[2017-11-25] MEDS ORDERED: SUCCINYLCHOLINE CHLORIDE 200 MG/10 ML VIAL ONE (20:45)
[2017-11-25] MEDS: PROPOFOL 1,000,000 MCG/100 ML VIAL IVPB SCH (21:30)
--- NOTE | 2017-11-25 21:30 | PROC ---
<Andrae Jose - Last Filed: 11/25/17 22:00> Procedure Note Procedure: Endotracheal intubation Intubation - Intubation Reason for Intubation: Respiratory Failure Time of Intubation: 21:04 Intubation Method: orotracheal Blade used: Glidescope Tube Size (cm): 7.5 Tube position @ lip (cm): 21 Tube position confirmed by: Direct visualization, CO2 detector, Chest x-ray ( cxr pending), Breath sounds Breath Sounds after Intubation: equal Post Intubation Xray: Yes (cxr pending) Remarks: Called to ICU for emergency assistance regarding patient's airway. Patient is a 67M with history of severe interstitial lung disease in hypoxic respiratory failure. Previous attempts to intubate done with Mac 4 and DL using propofol for sedation. Patient was hypoxic upon my arrival. Poor waveform on monitor. Transient waveforms shows spO2s in 60s. Oral bite guard placed, patient bagged, and repositioned in attempts to open airway further. Patient became cyanotic, intubation was done with glidescope as per procedure note. Patient remained hypoxic after intubation with spO2s in 60s. Airway was confirmed with second visualization using glidescope. Tube was suctioned. ETCO2 monitoring showed good waveform with values in high 20s/30s. Equal breath sounds. CXR pending. Patient left in care of ICU resident, RT and ICU nursing. Case discussed with ICU attending. <Oanh Almeida - Last Filed: 11/25/17 23:20> Procedure Note Procedure: Called emergently to the bedside to intubate patient for severe hypoxia. Attempts had been made prior to our arrival, patient had been medicated with propofol. ETT placed under direct visualization with glidescope. Patient continued to be hypoxic post ETT placement--ETT revisualized between vocal cords with glidescope. End tidal CO2 wave form 26-30 with good waveform. Hypoxia improved somewhat with slower ventilation and gatsric decompression. Patient left in the care of the ICU team.
[2017-11-25] MEDS ORDERED: methylPREDNISolone NA SUCC 125 MG/2 ML VIAL ONE (21:49)
[2017-11-25] MEDS ORDERED: fentaNYL CITRATE 250 MCG/5 ML VIAL ONE (21:51)
[2017-11-25 21:52] LABS: ARTERIAL BLD GAS O2 SATURATION 90.2 % (90-98.9); ARTERIAL BLOOD GAS BASE EXCESS 0.3 meq/l (-2-2); ARTERIAL BLOOD GAS PCO2 53.3 mmHg (35-45); ARTERIAL BLOOD GAS PO2 70.3 mmHg (80-100); ARTERIAL BLOOD GAS pH 7.32 (7.35-7.45)
[2017-11-25] MEDS: FENTANYL INJECTION 500 MCG in DEXTROSE 5%-WATER - 90 ML IVPB SCH (22:00)
[2017-11-25] MEDS ORDERED: PIPERACILLIN/TAZOB 3.375 GM 3.375 GM in DEXTROSE 5%-WATER - 50 ML IVPB SCH (22:00)
[2017-11-25] MEDS ORDERED: VANCOMYCIN 1,000 MG in DEXTROSE 5%-WATER - 250 ML IVPB SCH (22:00)
--- NOTE | 2017-11-25 22:12 | PROC ---
Intubation - Intubation Reason for Intubation: Respiratory Failure Time of Intubation: 22:00 Intubation Method: orotracheal Blade used: Mac (mac4) Tube Size (cm): 8.0 Tube position @ lip (cm): 23 Tube position confirmed by: Direct visualization, CO2 detector Breath Sounds after Intubation: equal Post Intubation Xray: Yes Remarks: Called to emergently evaluate ICU bed4. Pt is s/p intubation by E.D. physician with glidescope, with ?esophageal intubation. CO2 tracing did not appear correct, and ETT was at 20-21cm. Decision to re-intubate. Pt given 100mg Pearl, MAC4 with gr1 view; ETT 8.0 placed without issue, taped at 23-24cm. ETCO2 tracing appeared normal, with a value of 35-38. B/L breath sounds appreciated; asked for CXR to confirm placement
--- NOTE | 2017-11-25 22:25 | RAPID ---
Physical Examination Vital Signs: Vital Signs Temperature 98.4 F 11/25/17 18:00 Pulse Rate 116 H 11/25/17 18:00 Respiratory Rate 35 H 11/25/17 18:00 Blood Pressure 116/73 11/25/17 18:00 O2 Sat by Pulse Oximetry (%) 88 L 11/25/17 19:08 Findings/Remarks: Patient was observed to have O2 saturations in low 70s and using accessory muscles. Decision was made to intubate. Several attempts were made, during which patient at one time became bradycardic and hypotensive. Hemodynamic stability maintained after successful intubation. Initial sedation using propofol resulted in hypotension, patient was switched to IV fluids, dopamine, fentanyl. Patient given 125mg IV solumedrol and empiric ABx Vanc/Zosyn given for possible aspiration pneumonia, vent settings for possible ARDS, low TV, high PEEP, plt pressure < 30. Repeat ABG in one hour. Labs: CBC, BMP 11/25/17 07:46 11/25/17 07:46
[2017-11-25] MEDS ORDERED: VANCOMYCIN 1 GRAM (PRE-DOCKED) 1,000 MG/250 ML BAG IVPB ONE (22:45)
[2017-11-25] MEDS: DOPAMINE 400 MG/D5W - 400,000 MCG/250 ML INFUS.BAG IVPB SCH (22:45)
--- NOTE | 2017-11-25 22:46 | PN ---
Progress Note (short form) - Note Progress Note: Reassessment shows improved SpO2 to 96% while intubated and sedated on fentanyl gtt Dopamine started by ICU team for pressor support Continued b/l air entry, however inspiratory squeaking very prominent at this time diffusely; no rales or rhonchi noted CXR showing ETT placed in satisfactory position above melissa with diffuse opacifications throughout all lung eaton with possible loss of lung architecture (likely chronic from ILD) HYPERBARIC TECHNICIAN called overhead. Upon arrival ICU team at bedside. Pt noted to be hypoxic at this time with ETCO2 with shortened duration and amplitude around 20. Pt's pressure noted to be diminished at 54/30's. Propofol gtt already had been ceased at this time and fluids were being bolused rapidly. Anesthesia arrived to assess ETT and there was suspicion it was in improper location. ETT was replaced by anesthesia with bilateral air entry and positive CO2 monitor. Pt's repeat pressure at this time was increasing and hypoxia resolving. A/P Likely malpositioning of ETT causing hypoxia with resultant hypotension --ABG --CXR s/p intubation --Fentanyl 25 IVP due to vent asychrony currently --Rest per management of ICU team
--- NOTE | 2017-11-25 23:28 | PN ---
Progress Note, Physician - Current Medication List Current Medications: Active Medications Acetaminophen (Tylenol -) 650 mg PO Q6H PRN PRN Reason: PAIN OR FEVER Albuterol Sulfate (Ventolin 0.083% Nebulizer Soln -) 1 amp NEB Q4H PRN PRN Reason: SHORT OF BREATH/WHEEZING Last Admin: 11/24/17 02:00 Dose: 1 amp Albuterol/Ipratropium (Duoneb -) 1 amp NEB RQID ON [facility] OF [facility] Last Admin: 11/25/17 20:00 Dose: 1 amp Allopurinol (Zyloprim -) 300 mg PO DAILY ON [facility] Last Admin: 11/25/17 09:35 Dose: 300 mg Amlodipine Besylate (Norvasc -) 10 mg PO DAILY [facility] Last Admin: 11/25/17 09:33 Dose: 10 mg Enoxaparin Sodium (Lovenox -) 40 mg SQ DAILY [facility] Last Admin: 11/25/17 09:33 Dose: 40 mg Furosemide (Lasix Injection -) 40 mg IVPUSH BID@1120,1800 [facility] Last Admin: 11/25/17 18:05 Dose: 40 mg Hydrochlorothiazide (Hctz -) 25 mg PO DAILY [facility] Last Admin: 11/25/17 09:33 Dose: 25 mg Propofol (Diprivan -) 1,000,000 mcg in 100 mls @ 4.79 mls/hr IVPB TITR ON [facility]; Protocol Fentanyl 500 mcg/ Dextrose 100 mls @ 2 mls/hr IVPB TITR [facility] Vancomycin HCl 1,000 mg/ (Dextrose) 250 mls @ 200 mls/hr IVPB Q24H [facility]; Protocol Piperacillin Sod/Tazobactam (Sod 3.375 gm/ Dextrose) 50 mls @ 100 mls/hr IVPB Q8H-IV [facility]; Protocol Dopamine HCl/Dextrose (Dopamine 400 Mg/D5w -) 400,000 mcg in 250 mls @ 14.969 mls/hr IVPB TITR [facility]; Protocol Piperacillin Sod/Tazobactam (Sod 3.375 gm/ Dextrose) 50 mls @ 100 mls/hr IVPB Q8H-IV [facility] Stop: 11/26/17 22:44 Insulin Aspart (Novolog Vial Sliding Scale -) 0 vial SQ ACHS [facility]; Protocol Last Admin: 11/25/17 17:54 Dose: 4 units Losartan Potassium (Cozaar -) 100 mg PO DAILY [facility] Last Admin: 11/25/17 09:32 Dose: 100 mg Methylprednisolone Sodium Succinate (Solu-Medrol -) 40 mg IVPUSH Q8H-IV [facility] Last Admin: 11/25/17 17:53 Dose: 40 mg Metoprolol Succinate (Toprol Xl -) 100 mg PO DAILY [facility] Last Admin: 11/25/17 09:34 Dose: 100 mg Tamsulosin HCl (Flomax -) 0.4 mg PO DAILY@0830 [facility] Last Admin: 11/25/17 09:32 Dose: 0.4 mg - Objective Vital Signs: Vital Signs Temperature 98.4 F 11/25/17 18:00 Pulse Rate 116 H 11/25/17 18:00 Respiratory Rate 22 H 11/25/17 23:09 Blood Pressure 116/73 11/25/17 18:00 O2 Sat by Pulse Oximetry (%) 88 L 11/25/17 19:08 Labs: CBC, BMP 11/25/17 07:46 11/25/17 07:46 INR, PTT INR 1.11 (0.83-1.09) H 11/21/17 11:26
[2017-11-26 00:40] LABS: ARTERIAL BLD GAS O2 SATURATION 95.2 % (90-98.9); ARTERIAL BLOOD GAS BASE EXCESS -0.1 meq/l (-2-2)
[2017-11-26 00:42] LABS: ALLENS TEST POSITIVE
[2017-11-26 00:45] LABS: ARTERIAL BLOOD GAS pH 7.13 (7.35-7.45)
[2017-11-26] MEDS ORDERED: PIPERACILLIN/TAZOBACTAM 3.375 GM VIAL IVPB ONE ×3 (01:24→17:24)
[2017-11-26] MEDS ORDERED: DEXTROSE 5%-WATER - 50 ML IVPB ONE ×3 (01:24→17:24)
[2017-11-26] MEDS: KCL 10 MEQ IVPB 10 MEQ/100 ML INFUS.BAG IVPB SCH ×4 (02:00→03:47)
[2017-11-26] MEDS: methylPREDNISolone NA SUCC 40 MG/1 ML VIAL IVPUSH SCH ×3 (02:01→17:37)
[2017-11-26 02:55] LABS: ARTERIAL BLOOD GAS BASE EXCESS 1.7 meq/l (-2-2); ARTERIAL BLOOD GAS PO2 70.5 mmHg (80-100)
[2017-11-26 02:56] LABS: ALLENS TEST POSITIVE
[2017-11-26 02:58] LABS: ARTERIAL BLOOD GAS pH 7.15 (7.35-7.45)
[2017-11-26] MEDS ORDERED: fentaNYL CITRATE 250 MCG/5 ML VIAL ONE ×4 (05:11→23:26)
[2017-11-26] MEDS: FENTANYL INJECTION 500 MCG in DEXTROSE 5%-WATER - 90 ML IVPB SCH ×5 (05:20→23:34)
[2017-11-26] MEDS: PIPERACILLIN/TAZOB 3.375 GM 3.375 GM in DEXTROSE 5%-WATER - 50 ML IVPB SCH ×3 (06:09→17:36)
[2017-11-26 06:15] LABS: HEMATOCRIT 42.4 % (35.4-49); HEMOGLOBIN 13.4 GM/dL (11.7-16.9); MCH 30.1 pg (25.7-33.7); MCHC 31.6 g/dl (32.0-35.9); MEAN CELL VOLUME 95.3 fl (80-96); MEAN PLT VOLUME 9.2 fl (7.5-11.1); PLATELET COUNT 172 K/MM3 (134-434); RBC 4.45 M/mm3 (4.00-5.60); RDW 15.3 % (11.9-15.9); WHITE BLOOD COUNT 19.4 K/mm3 (4.0-10.0)
[2017-11-26] MEDS: HEPARIN NA (PORCINE) 5,000 UNITS/ML 1ML VIAL SQ SCH ×3 (06:37→22:51)
[2017-11-26 06:55] LABS: ARTERIAL BLD GAS O2 SATURATION 95.2 % (90-98.9); ARTERIAL BLOOD GAS BASE EXCESS 2.8 meq/l (-2-2); ARTERIAL BLOOD GAS PO2 84.4 mmHg (80-100); ARTERIAL BLOOD GAS pH 7.29 (7.35-7.45)
[2017-11-26] MEDS: DOPAMINE 400 MG/D5W - 400,000 MCG/250 ML INFUS.BAG IVPB SCH ×3 (07:00→16:23)
[2017-11-26] MEDS: INSULIN SLIDING SCALE (NOVOLOG) 1 VIAL SQ SCH ×4 (07:01→22:52)
[2017-11-26 07:06] LABS: ANION GAP 8 MMOL/L (8-16); BLOOD UREA NITROGEN 64 mg/dL (7-18); CALCIUM 8.3 mg/dL (8.5-10.1); CHLORIDE 101 mmol/L (98-107); CO2 34 mmol/L (21-32); CREATININE 2.8 mg/dL (0.55-1.3); MAGNESIUM 2.2 mg/dL (1.8-2.4); POTASSIUM 4.7 mmol/L (3.5-5.1); SODIUM 142 mmol/L (136-145)
[2017-11-26 07:08] LABS: GLUCOSE,RANDOM 317 mg/dL (74-106)
[2017-11-26 07:17] LABS: ALLENS TEST POSITIVE
--- NOTE | 2017-11-26 08:26 | PN ---
Progress Note (short form) - Note Progress Note: PULM/CCM SUBJECTIVE: Patient seen and examined in the ICU. 24HR: -intubated for hypoxic resp failure -difficult to oxygenate and ventilate -deep sedation but did not require NMB -family updated overnight Vital Signs Temp 98.4 F 11/26/17 06:00 Pulse 101 H 11/26/17 06:00 Resp 29 H 11/26/17 06:50 BP 77/54 L 11/26/17 06:00 Pulse Ox 95 11/26/17 01:09 Intake & Output 11/25/17 11/25/17 11/26/17 11:59 23:59 11:59 Intake Total 540 150 115 Output Total 1200 700 200 Balance -660 -550 -85 Weight 80.002 kg 79.832 kg 80.286 kg Intake: IV 115 DIPRIVAN - 1,000,000 mcg 40 In 100 ml @ 10 MCG/KG/MIN 4.79 mls/hr IVPB TITR [facility] Rx#:[id number] Sublimaze Injection - 500 75 Mcg In D5w - 90 ml @ 10 MCG/HR 2 mls/hr IVPB TITR [facility] Rx#:[id number] IVPB 150 Oral 540 Output: Urine 1200 700 200 Bates 200 Void 1200 700 Other: Voiding Method Urinal Urinal Height 5 ft 9 in Body Mass Index (BMI) 25.9 Active Medications Acetaminophen (Tylenol -) 650 mg PO Q6H PRN PRN Reason: PAIN OR FEVER Albuterol Sulfate (Ventolin 0.083% Nebulizer Soln -) 1 amp NEB Q4H PRN PRN Reason: SHORT OF BREATH/WHEEZING Last Admin: 11/24/17 02:00 Dose: 1 amp Albuterol/Ipratropium (Duoneb -) 1 amp NEB RQID [facility] Last Admin: 11/25/17 20:00 Dose: 1 amp Allopurinol (Zyloprim -) 300 mg PO DAILY [facility] Last Admin: 11/25/17 09:35 Dose: 300 mg Amlodipine Besylate (Norvasc -) 10 mg PO DAILY [facility] Last Admin: 11/25/17 09:33 Dose: 10 mg Furosemide (Lasix Injection -) 40 mg IVPUSH BID@1120,1800 [facility] Last Admin: 11/25/17 18:05 Dose: 40 mg Heparin Sodium (Porcine) (Heparin -) 5,000 unit SQ TID [facility] Last Admin: 11/26/17 06:37 Dose: 5,000 unit Hydrochlorothiazide (Hctz -) 25 mg PO DAILY [facility] Last Admin: 11/25/17 09:33 Dose: 25 mg Propofol (Diprivan -) 1,000,000 mcg in 100 mls @ 4.79 mls/hr IVPB TITR [facility]; Protocol Last Admin: 11/25/17 21:30 Dose: 10 mcg/kg/min, 4.79 mls/hr Fentanyl 500 mcg/ Dextrose 100 mls @ 2 mls/hr IVPB TITR [facility] Last Admin: 11/26/17 05:20 Dose: 50 mcg/hr, 10 mls/hr Vancomycin HCl 1,000 mg/ (Dextrose) 250 mls @ 200 mls/hr IVPB Q24H [facility]; Protocol Piperacillin Sod/Tazobactam (Sod 3.375 gm/ Dextrose) 50 mls @ 100 mls/hr IVPB Q8H-IV [facility]; Protocol Dopamine HCl/Dextrose (Dopamine 400 Mg/D5w -) 400,000 mcg in 250 mls @ 14.969 mls/hr IVPB TITR [facility]; Protocol Last Titration: 11/26/17 03:00 Dose: 7 mcg/kg/min, 20.956 mls/hr Piperacillin Sod/Tazobactam (Sod 3.375 gm/ Dextrose) 50 mls @ 100 mls/hr IVPB Q8H-IV [facility] Stop: 11/26/17 22:44 Last Admin: 11/26/17 06:09 Dose: Not Given Fentanyl 500 mcg/ Dextrose 100 mls @ 20 mls/hr IVPB TITR [facility] Insulin Aspart (Novolog Vial Sliding Scale -) 0 vial SQ ACHS [facility]; Protocol Last Admin: 11/26/17 07:01 Dose: Not Given Losartan Potassium (Cozaar -) 100 mg PO DAILY [facility] Last Admin: 11/25/17 09:32 Dose: 100 mg Methylprednisolone Sodium Succinate (Solu-Medrol -) 40 mg IVPUSH Q8H-IV [facility] Last Admin: 11/26/17 02:01 Dose: 40 mg Metoprolol Succinate (Toprol Xl -) 100 mg PO DAILY [facility] Last Admin: 11/25/17 09:34 Dose: 100 mg Tamsulosin HCl (Flomax -) 0.4 mg PO DAILY@0830 [facility] Last Admin: 11/25/17 09:32 Dose: 0.4 mg Gen: intubated sedated Heart: RRR Lung: Bilateral coarse crackles / rhonchi Abd: soft, nontender Ext: no edema Neuro: RASS -4,slight withdrawals to noxious ABG Results ABG pH 7.29 (7.35-7.45) L 11/26/17 05:30 ABG pCO2 at Pt Temp 66.0 mmHg (35-45) H* D 11/26/17 05:30 ABG pO2 at Pt Temp 84.4 mmHg (80-100) 11/26/17 05:30 ABG HCO3 30.7 meq/L (22-26) H 11/26/17 05:30 ABG O2 Sat (Measured) 95.2 % (90-98.9) 11/26/17 05:30 ABG O2 Content 16.9 % vol (15-22) 11/26/17 05:30 ABG Base Excess 2.8 meq/l (-2-2) H 11/26/17 05:30 CBCD WBC 19.4 K/mm3 (4.0-10.0) H 11/26/17 05:30 RBC 4.45 M/mm3 (4.00-5.60) 11/26/17 05:30 Hgb 13.4 GM/dL (11.7-16.9) 11/26/17 05:30 Hct 42.4 % (35.4-49) 11/26/17 05:30 MCV 95.3 fl (80-96) 11/26/17 05:30 MCHC 31.6 g/dl (32.0-35.9) L 11/26/17 05:30 RDW 15.3 % (11.9-15.9) 11/26/17 05:30 Plt Count 172 K/MM3 (134-434) 11/26/17 05:30 MPV 9.2 fl (7.5-11.1) 11/26/17 05:30 CMP Sodium 142 mmol/L (136-145) 11/26/17 05:30 Potassium 4.7 mmol/L (3.5-5.1) 11/26/17 05:30 Chloride 101 mmol/L (98-107) 11/26/17 05:30 Carbon Dioxide 34 mmol/L (21-32) H 11/26/17 05:30 Anion Gap 8 MMOL/L (8-16) 11/26/17 05:30 BUN 64 mg/dL (7-18) H 11/26/17 05:30 Creatinine 2.8 mg/dL (0.55-1.3) H 11/26/17 05:30 Creat Clearance w eGFR 22.58 (>60) 11/26/17 05:30 Calcium 8.3 mg/dL (8.5-10.1) L 11/26/17 05:30 Total Bilirubin 0.7 mg/dL (0.2-1) 11/23/17 21:00 AST 73 U/L (15-37) H 11/23/17 21:00 ALT 72 U/L (13-61) H 11/23/17 21:00 Alkaline Phosphatase 74 U/L (45-117) 11/23/17 21:00 Total Protein 6.6 g/dl (6.4-8.2) 11/23/17 21:00 Albumin 2.9 g/dl (3.4-5.0) L 11/23/17 21:00 Microbiology 11/24/17 05:30 Blood - Peripheral Venous Blood Culture - Preliminary NO GROWTH OBTAINED AFTER 48 HOURS, INCUBATION TO CONTINUE FOR 3 DAYS. 11/24/17 05:45 Blood - Peripheral Venous Blood Culture - Preliminary NO GROWTH OBTAINED AFTER 48 HOURS, INCUBATION TO CONTINUE FOR 3 DAYS. 11/21/17 11:26 Blood - Peripheral Venous Blood Culture - Preliminary NO GROWTH OBTAINED AFTER 96 HOURS, INCUBATION TO CONTINUE FOR 1 DAYS. 11/21/17 11:26 Blood - Peripheral Venous Blood Culture - Final Staphylococcus Epidermidis 11/23/17 10:00 Urine - Urine Clean Catch Urine Culture - Final NO GROWTH OBTAINED 11/21/17 18:50 Urine - Urine Clean Catch Urine Culture - Final NO GROWTH OBTAINED 11/21/17 18:50 Urine For Antigen Detection Legionella Antigen - Final 11/21/17 18:50 Urine For Antigen Detection Streptococcus pneumoniae Antigen (M - Final 11/21/17 16:05 Nasopharyngeal Swab Influenza Types A,B Antigen - Final 11/21/17 16:05 Nasopharyngeal Swab - Final ASSESSMENT AND PLAN: Acute on Chronic Hypoxic Respiratory Failure Pneumonia Sepsis Volume Overload Interstitial Lung Disease HTN DM BPH - Low tidal volume vent strategies, will add paralysis and deepen sedation as needed - Lasix for goal negative as tolerated - monitor urine output, creatinine - replete lytes - ABX as per ID - Continue medrol - inhaled bronchodilators - GOC discussion today, has ESLD not tx candidate/never referred Elsa DOLLP [id number] 35min CCT
[2017-11-26] MEDS: TAMSULOSIN HCL 0.4 MG CAP PO SCH (08:40)
[2017-11-26] MEDS: ALBUTEROL SO4 2.5/IPRATROPIUM 0.5 INH SOL 3 ML VIAL.NEB. NEB SCH ×4 (08:45→21:30)
[2017-11-26] MEDS: HYDROCHLOROTHIAZIDE 25 MG TABLET (FP) PO SCH (09:24)
[2017-11-26] MEDS: LOSARTAN POTASSIUM 50 MG TABLET (FP) PO SCH (09:24)
[2017-11-26] MEDS: amLODIPine BESYLATE 10 MG TABLET (FP) PO SCH (09:24)
[2017-11-26] MEDS: ALLOPURINOL 300 MG TABLET (FP) PO SCH (09:26)
[2017-11-26] MEDS: FUROSEMIDE 40 MG/4 ML INJECTABLE VIAL IVPUSH SCH ×2 (11:40→17:37)
--- NOTE | 2017-11-26 13:07 | CONSULT ---
Consult Consult Specialty:: Nephrology ( [facility]aldo/ Andrews) Reason for Consultation:: Patient with SLE, CKD in BURKE now - History of Present Illness Chief Complaint: Patient admitted with acute Shortness of breath, and developed acute respiratory failure. Intubated and on vent support. History of Present Illness: Simba Simpson is well known to our service, who is a a 67yo man with a PMH of HTN, DM, BPH and SLE. He was brought in to ER with worsening SOB . The patient has a chronic Interstitial lung disease, the anture of which is not identified. 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 he has Hypertyension, and has been fairly well controlled. He also has mild CKD , and this has worsened since the hospitalization. - History Source History Provided By: Family Member (son and daughter. ) Limitations to Obtaining History: Intubated - Past Medical History Cardio/Vascular: Yes: HTN, Pulmonary Hypertension (??) Pulmonary: Yes: Pneumonia Renal/: Yes: Renal Failure, Renal Inusuff Rheumatology: Yes: Lupus Endocrine: Yes: Diabetes Mellitus - Alcohol/Substance Use Hx Alcohol Use: No - Smoking History Smoking history: Never smoked Have you smoked in the past 12 months: No Home Medications - Allergies Allergies/Adverse Reactions: Allergies Allergy/AdvReac Type Severity Reaction Status Date / Time No Known Allergies Allergy Verified 11/21/17 10:43 - Home Medications Home Medications: Ambulatory Orders Allopurinol 300 mg PO DAILY 06/04/17 Metformin HCl [Metformin HCl ER] 500 mg PO DAILY 06/04/17 Metoprolol Succinate [Toprol Xl] 100 mg PO DAILY 06/04/17 Olmesartan/Amlodipin/Hcthiazid [Rlorqyf-Qnjzga-Regc 40-10-25Mg] 1 each PO DAILY 06/04/17 Tamsulosin HCl [Flomax -] 0.4 mg PO DAILY 06/04/17 Budesonide/Formeterol Fumarate [SYMBICORT 160/4.5mcg -] 2 puff IH BID inhaler 09/14/17 Tiotropium [place] [Spiriva] 1 puff IH DAILY cap 09/14/17 Family Disease History - Family Disease History Family Disease History: Other: Sister (His sister had lupus.) Review of Systems - Review of Systems Constitutional: reports: Weakness Cardiovascular: reports: Shortness of Breath. denies: Chest Pain, Palpitations Respiratory: reports: Orthopnea, SOB, SOB on Exertion Genitourinary: denies: Incontinence Breasts: denies: Discharge from Nipple Musculoskeletal: denies: Joint Swelling, Muscle Pain Neurological: reports: No Symptoms Physical Exam Vital Signs: Vital Signs Temperature 98.1 F 11/26/17 10:00 Pulse Rate 99 H 11/26/17 12:00 Respiratory Rate 28 H 11/26/17 12:01 Blood Pressure 113/70 11/26/17 12:00 O2 Sat by Pulse Oximetry (%) 100 11/26/17 08:44 Constitutional: Yes: Other (The patient is intubated and supported by mechanical ventilator.) HENT: Yes: Normocephalic Neck: Yes: Trachea Midline Cardiovascular: Yes: Regular Rate and Rhythm, Tachycardia, S1, S2 Respiratory: Yes: CTA Bilaterally, Diminished, Mechanically Ventilated Gastrointestinal: Yes: Normal Bowel Sounds, Soft, Abdomen, Obese Renal/: No: Bladder Distention, CVA Tenderness - Left, CVA Tenderness - Right Edema: No Neurological: Yes: Lethargy (sedation) Labs: CBC, BMP 11/26/17 05:30 11/26/17 05:30 Problem List - Problems (1) BURKE (acute kidney injury) Code(s): N17.9 - ACUTE KIDNEY FAILURE, UNSPECIFIED (2) CKD (chronic kidney disease) Code(s): N18.9 - CHRONIC KIDNEY DISEASE, UNSPECIFIED (3) Acute and chronic respiratory failure with hypoxia Code(s): J96.21 - ACUTE AND CHRONIC RESPIRATORY FAILURE WITH HYPOXIA (4) Pneumonia Code(s): J18.9 - PNEUMONIA, UNSPECIFIED ORGANISM (5) SLE (systemic lupus erythematosus) Code(s): M32.9 - SYSTEMIC LUPUS ERYTHEMATOSUS, UNSPECIFIED Assessment/Plan 67 y/o male with h/o atypical SLE, Hypertension, Interstitial lung disease, CKD3 , admitted with acute shortness of breath. The patient developed progressivehypotension. respiratory failure, and worsening renal failure. Acute respiratory failure, vent support, probably due to acute respiratory infection ( Pna). Profound Hypotension. Most likely related to the infectious process. But other factors need to be ruled out. Acute Kidney Injury, most likely due to hypotension and renal hypoperfusion. Plan: DC anti Hypertensiove regimen. IV Pressors as needed. IV abx as ordered. Had lengthy discussion with the family. Thank you. Will follow with you. Sylvia Jacobs MD
--- NOTE | 2017-11-26 14:24 | PN ---
Progress Note, Physician History of Present Illness: events noted patient became extremely dyspoenic now intubated and sedated - Current Medication List Current Medications: Active Medications Acetaminophen (Tylenol -) 650 mg PO Q6H PRN PRN Reason: PAIN OR FEVER Albuterol Sulfate (Ventolin 0.083% Nebulizer Soln -) 1 amp NEB Q4H PRN PRN Reason: SHORT OF BREATH/WHEEZING Last Admin: 11/24/17 02:00 Dose: 1 amp Albuterol/Ipratropium (Duoneb -) 1 amp NEB RQID [facility] Last Admin: 11/26/17 12:02 Dose: 1 amp Furosemide (Lasix Injection -) 40 mg IVPUSH BID@1120,1800 [facility] Last Admin: 11/26/17 11:40 Dose: 40 mg Heparin Sodium (Porcine) (Heparin -) 5,000 unit SQ TID [facility] Last Admin: 11/26/17 06:37 Dose: 5,000 unit Propofol (Diprivan -) 1,000,000 mcg in 100 mls @ 4.79 mls/hr IVPB TITR [facility]; Protocol Last Admin: 11/25/17 21:30 Dose: 10 mcg/kg/min, 4.79 mls/hr Vancomycin HCl 1,000 mg/ (Dextrose) 250 mls @ 200 mls/hr IVPB Q24H [facility]; Protocol Piperacillin Sod/Tazobactam (Sod 3.375 gm/ Dextrose) 50 mls @ 100 mls/hr IVPB Q8H-IV [facility]; Protocol Dopamine HCl/Dextrose (Dopamine 400 Mg/D5w -) 400,000 mcg in 250 mls @ 14.969 mls/hr IVPB TITR [facility]; Protocol Last Admin: 11/26/17 09:26 Dose: 11 mcg/kg/min, 32.931 mls/hr Piperacillin Sod/Tazobactam (Sod 3.375 gm/ Dextrose) 50 mls @ 100 mls/hr IVPB Q8H-IV [facility] Stop: 11/26/17 22:44 Last Admin: 11/26/17 09:25 Dose: 100 mls/hr Fentanyl 500 mcg/ Dextrose 100 mls @ 20 mls/hr IVPB TITR [facility] Last Admin: 11/26/17 12:40 Dose: 100 mcg/hr, 20 mls/hr Insulin Aspart (Novolog Vial Sliding Scale -) 0 vial SQ ACHS [facility]; Protocol Last Admin: 11/26/17 11:51 Dose: 8 units Methylprednisolone Sodium Succinate (Solu-Medrol -) 40 mg IVPUSH Q8H-IV [facility] Last Admin: 11/26/17 09:24 Dose: 40 mg Metoprolol Succinate (Toprol Xl -) 100 mg PO DAILY [facility] Last Admin: 11/26/17 11:30 Dose: Not Given Tamsulosin HCl (Flomax -) 0.4 mg PO DAILY@0830 [facility] Last Admin: 11/26/17 08:40 Dose: Not Given - Objective Vital Signs: Vital Signs Temperature 98.1 F 11/26/17 10:00 Pulse Rate 99 H 11/26/17 12:00 Respiratory Rate 28 H 11/26/17 12:01 Blood Pressure 113/70 11/26/17 12:00 O2 Sat by Pulse Oximetry (%) 100 11/26/17 08:44 Constitutional: Yes: Other Cardiovascular: Yes: Regular Rate and Rhythm Respiratory: Yes: Intubated, Mechanically Ventilated Gastrointestinal: Yes: Normal Bowel Sounds, Soft Musculoskeletal: Yes: WNL Extremities: Yes: WNL Labs: CBC, BMP 11/26/17 05:30 11/26/17 05:30 INR, PTT INR 1.11 (0.83-1.09) H 11/21/17 11:26 Assessment/Plan Respiratory Failure Pneumonia Sepsis Interstitial Lung Disease HTN DM BPH plan continue current management monitor off of abx resp support rest as per icu cc 38 min
[2017-11-26] MEDS: PROPOFOL 1,000,000 MCG/100 ML VIAL IVPB SCH ×2 (16:23→22:59)
--- NOTE | 2017-11-26 23:38 | PN ---
Progress Note, Physician - Current Medication List Current Medications: Active Medications Acetaminophen (Tylenol -) 650 mg PO Q6H PRN PRN Reason: PAIN OR FEVER Albuterol Sulfate (Ventolin 0.083% Nebulizer Soln -) 1 amp NEB Q4H PRN PRN Reason: SHORT OF BREATH/WHEEZING Last Admin: 11/24/17 02:00 Dose: 1 amp Albuterol/Ipratropium (Duoneb -) 1 amp NEB RQID [facility] Last Admin: 11/26/17 21:30 Dose: 1 amp Furosemide (Lasix Injection -) 40 mg IVPUSH BID@1120,1800 [facility] Last Admin: 11/26/17 17:37 Dose: 40 mg Heparin Sodium (Porcine) (Heparin -) 5,000 unit SQ TID [facility] Last Admin: 11/26/17 22:51 Dose: 5,000 unit Propofol (Diprivan -) 1,000,000 mcg in 100 mls @ 4.79 mls/hr IVPB TITR [facility]; Protocol Last Admin: 11/26/17 22:59 Dose: 30 mcg/kg/min, 14.37 mls/hr Vancomycin HCl 1,000 mg/ (Dextrose) 250 mls @ 200 mls/hr IVPB Q24H [facility]; Protocol Piperacillin Sod/Tazobactam (Sod 3.375 gm/ Dextrose) 50 mls @ 100 mls/hr IVPB Q8H-IV [facility]; Protocol Dopamine HCl/Dextrose (Dopamine 400 Mg/D5w -) 400,000 mcg in 250 mls @ 14.969 mls/hr IVPB TITR [facility]; Protocol Last Titration: 11/26/17 18:00 Dose: 9 mcg/kg/min, 26.943 mls/hr Fentanyl 500 mcg/ Dextrose 100 mls @ 20 mls/hr IVPB TITR [facility]; Protocol Last Admin: 11/26/17 23:34 Dose: 100 mcg/hr, 20 mls/hr Insulin Aspart (Novolog Vial Sliding Scale -) 0 vial SQ ACHS [facility]; Protocol Last Admin: 11/26/17 22:52 Dose: 2 units Methylprednisolone Sodium Succinate (Solu-Medrol -) 40 mg IVPUSH Q8H-IV [facility] Last Admin: 11/26/17 17:37 Dose: 40 mg Metoprolol Succinate (Toprol Xl -) 100 mg PO DAILY [facility] Last Admin: 11/26/17 11:30 Dose: Not Given Tamsulosin HCl (Flomax -) 0.4 mg PO DAILY@0830 [facility] Last Admin: 11/26/17 08:40 Dose: Not Given - Objective Vital Signs: Vital Signs Temperature 98.7 F 11/26/17 20:00 Pulse Rate 94 H 11/26/17 18:00 Respiratory Rate 28 H 11/26/17 21:30 Blood Pressure 105/69 11/26/17 20:00 O2 Sat by Pulse Oximetry (%) 98 11/26/17 10:00 Labs: CBC, BMP 11/26/17 05:30 11/26/17 05:30 INR, PTT INR 1.11 (0.83-1.09) H 11/21/17 11:26
[2017-11-27] MEDS: methylPREDNISolone NA SUCC 40 MG/1 ML VIAL IVPUSH SCH ×3 (02:00→17:10)
[2017-11-27] MEDS: DOPAMINE 400 MG/D5W - 400,000 MCG/250 ML INFUS.BAG IVPB SCH ×2 (02:53→23:30)
[2017-11-27 06:03] LABS: HEMATOCRIT 40.2 % (35.4-49); HEMOGLOBIN 12.9 GM/dL (11.7-16.9); MCH 29.9 pg (25.7-33.7); MCHC 32.1 g/dl (32.0-35.9); MEAN CELL VOLUME 93.1 fl (80-96); MEAN PLT VOLUME 8.9 fl (7.5-11.1); PLATELET COUNT 144 K/MM3 (134-434); RBC 4.31 M/mm3 (4.00-5.60); RDW 15.1 % (11.9-15.9)
[2017-11-27] MEDS ORDERED: fentaNYL CITRATE 250 MCG/5 ML VIAL ONE ×3 (06:19→18:24)
[2017-11-27 06:27] LABS: ALBUMIN 2.3 g/dl (3.4-5.0); ALK PHOS 79 U/L (45-117); ANION GAP 8 MMOL/L (8-16); BILIRUBIN,TOTAL 0.6 mg/dL (0.2-1); BLOOD UREA NITROGEN 77 mg/dL (7-18); CHLORIDE 101 mmol/L (98-107); CO2 36 mmol/L (21-32); CREATININE 2.2 mg/dL (0.55-1.3); GLUCOSE,RANDOM 242 mg/dL (74-106); MAGNESIUM 2.3 mg/dL (1.8-2.4); PHOSPHOROUS 6.2 mg/dL (2.5-4.9); POTASSIUM 3.9 mmol/L (3.5-5.1); SGOT/AST 14 U/L (15-37); SGPT/ALT 77 U/L (13-61); SODIUM 145 mmol/L (136-145); TOT PROT 6.1 g/dl (6.4-8.2)
[2017-11-27] MEDS: FENTANYL INJECTION 500 MCG in DEXTROSE 5%-WATER - 90 ML IVPB SCH ×3 (06:29→18:28)
[2017-11-27 06:30] LABS: ARTERIAL BLD GAS O2 SATURATION 99.3 % (90-98.9); ARTERIAL BLOOD GAS BASE EXCESS 4.4 meq/l (-2-2); ARTERIAL BLOOD GAS pH 7.33 (7.35-7.45)
[2017-11-27] MEDS: HEPARIN NA (PORCINE) 5,000 UNITS/ML 1ML VIAL SQ SCH ×3 (06:30→22:16)
[2017-11-27 06:33] LABS: ARTERIAL BLOOD GAS PCO2 62.3 mmHg (35-45)
[2017-11-27 06:34] LABS: ALLENS TEST POSITIVE
--- NOTE | 2017-11-27 06:55 | PN ---
Progress Note (short form) - Note Progress Note: PULM/CCM SUBJECTIVE: Patient seen and examined in the ICU. 24HR: -cont to require high MV for ventiliation -rising serum HCo3 assisting with maintaining pH -discussed swim coach MV with familly, low likelyhood of success/life outside ICU -Cr improving Vital Signs Temp 98.3 F 11/27/17 06:00 Pulse 95 H 11/27/17 06:00 Resp 28 H 11/27/17 06:00 BP 108/69 11/27/17 06:00 Pulse Ox 100 11/27/17 02:00 Intake & Output 11/26/17 11/26/17 11/27/17 11:59 23:59 11:59 Intake Total 115 1047.3 274.4 Output Total 200 1100 800 Balance -85 -52.7 -525.6 Weight 80.286 kg 78.608 kg Intake: IV 115 947.3 274.4 DIPRIVAN - 1,000,000 mcg 40 227.5 100.1 In 100 ml @ 10 MCG/KG/MIN 4.79 mls/hr IVPB TITR [facility] Rx#:[id number] DOPAMINE 400 MG/D5W - 400 472.8 104.3 ,000 mcg In 250 ml @ 5 MCG/KG/MIN 14.969 mls/hr IVPB TITR [facility] Rx#: [id number] Sublimaze Injection - 500 75 247 70 Mcg In D5w - 90 ml @ 10 MCG/HR 2 mls/hr IVPB TITR [facility] Rx#:[id number] IVPB 100 Output: Urine 200 1100 800 Bates 200 1100 800 Other: Voiding Method Urinal Indwelling Catheter Indwelling Catheter Bowel Movement No Weight Measurement Method Built in [facility] Active Medications Acetaminophen (Tylenol -) 650 mg PO Q6H PRN PRN Reason: PAIN OR FEVER Albuterol Sulfate (Ventolin 0.083% Nebulizer Soln -) 1 amp NEB Q4H PRN PRN Reason: SHORT OF BREATH/WHEEZING Last Admin: 11/24/17 02:00 Dose: 1 amp Albuterol/Ipratropium (Duoneb -) 1 amp NEB RQID [facility] Last Admin: 11/26/17 21:30 Dose: 1 amp Furosemide (Lasix Injection -) 40 mg IVPUSH BID@1120,1800 [facility] Last Admin: 11/26/17 17:37 Dose: 40 mg Heparin Sodium (Porcine) (Heparin -) 5,000 unit SQ TID [facility] Last Admin: 11/27/17 06:30 Dose: 5,000 unit Propofol (Diprivan -) 1,000,000 mcg in 100 mls @ 4.79 mls/hr IVPB TITR [facility]; Protocol Last Admin: 11/26/17 22:59 Dose: 30 mcg/kg/min, 14.37 mls/hr Vancomycin HCl 1,000 mg/ (Dextrose) 250 mls @ 200 mls/hr IVPB Q24H [facility]; Protocol Piperacillin Sod/Tazobactam (Sod 3.375 gm/ Dextrose) 50 mls @ 100 mls/hr IVPB Q8H-IV [facility]; Protocol Dopamine HCl/Dextrose (Dopamine 400 Mg/D5w -) 400,000 mcg in 250 mls @ 14.969 mls/hr IVPB TITR [facility]; Protocol Last Admin: 11/27/17 02:53 Dose: 9 mcg/kg/min, 26.943 mls/hr Fentanyl 500 mcg/ Dextrose 100 mls @ 20 mls/hr IVPB TITR [facility]; Protocol Last Admin: 11/27/17 06:29 Dose: 100 mcg/hr, 20 mls/hr Insulin Aspart (Novolog Vial Sliding Scale -) 0 vial SQ ACHS [facility]; Protocol Last Admin: 11/26/17 22:52 Dose: 2 units Methylprednisolone Sodium Succinate (Solu-Medrol -) 40 mg IVPUSH Q8H-IV [facility] Last Admin: 11/27/17 02:00 Dose: 40 mg Metoprolol Succinate (Toprol Xl -) 100 mg PO DAILY [facility] Last Admin: 11/26/17 11:30 Dose: Not Given Tamsulosin HCl (Flomax -) 0.4 mg PO DAILY@0830 [facility] Last Admin: 11/26/17 08:40 Dose: Not Given Gen: intubated deeply sedated Heart: RRR Lung: Bilateral coarse crackles / rhonchi Abd: soft, nontender Ext: no edema Neuro: RASS -4,slight withdrawals to noxious CBC, BMP 11/27/17 05:30 11/27/17 05:30 ABG Results ABG pH 7.33 (7.35-7.45) L 11/27/17 06:20 ABG pCO2 at Pt Temp 62.3 mmHg (35-45) H* 11/27/17 06:20 ABG pO2 at Pt Temp 176.0 mmHg (80-100) H* 11/27/17 06:20 ABG HCO3 31.8 meq/L (22-26) H 11/27/17 06:20 ABG O2 Sat (Measured) 99.3 % (90-98.9) H 11/27/17 06:20 ABG O2 Content 19.4 % vol (15-22) 11/27/17 06:20 ABG Base Excess 4.4 meq/l (-2-2) H 11/27/17 06:20 Microbiology 11/24/17 05:30 Blood - Peripheral Venous Blood Culture - Preliminary NO GROWTH OBTAINED AFTER 48 HOURS, INCUBATION TO CONTINUE FOR 3 DAYS. 11/24/17 05:45 Blood - Peripheral Venous Blood Culture - Preliminary NO GROWTH OBTAINED AFTER 48 HOURS, INCUBATION TO CONTINUE FOR 3 DAYS. 11/21/17 11:26 Blood - Peripheral Venous Blood Culture - Preliminary NO GROWTH OBTAINED AFTER 96 HOURS, INCUBATION TO CONTINUE FOR 1 DAYS. 11/21/17 11:26 Blood - Peripheral Venous Blood Culture - Final Staphylococcus Epidermidis 11/23/17 10:00 Urine - Urine Clean Catch Urine Culture - Final NO GROWTH OBTAINED 11/21/17 18:50 Urine - Urine Clean Catch Urine Culture - Final NO GROWTH OBTAINED 11/21/17 18:50 Urine For Antigen Detection Legionella Antigen - Final 11/21/17 18:50 Urine For Antigen Detection Streptococcus pneumoniae Antigen (M - Final 11/21/17 16:05 Nasopharyngeal Swab Influenza Types A,B Antigen - Final 11/21/17 16:05 Nasopharyngeal Swab - Final ASSESSMENT AND PLAN: Acute on Chronic Hypoxic Respiratory Failure Pneumonia Sepsis Volume Overload Interstitial Lung Disease HTN DM BPH - Low tidal volume vent strategies, will add paralysis and deepen sedation as needed - appears euvoluemic, would hold off of further diuresis - monitor urine output, creatinine, allow serum bicarb to rise to assist with pH - replete lytes - ABX as per ID - Continue medrol, will taper as not wheezing - inhaled bronchodilators - GOC discussion today, has ESLD not tx candidate/never referred [place] [facility] ACNP [id number] 35min CCT
[2017-11-27] MEDS: INSULIN SLIDING SCALE (NOVOLOG) 1 VIAL SQ SCH ×4 (07:22→22:20)
[2017-11-27] MEDS: ALBUTEROL SO4 2.5/IPRATROPIUM 0.5 INH SOL 3 ML VIAL.NEB. NEB SCH ×4 (08:38→20:42)
[2017-11-27] MEDS: TAMSULOSIN HCL 0.4 MG CAP PO SCH (09:24)
--- NOTE | 2017-11-27 10:03 | PN ---
Progress Note, Physician Chief Complaint: The patient seen in the ICU. remains intubated and on high FiO2. Arousable. Maintains good urine output. Resp rate 28/min. History of Present Illness: Simba Simpson is a 67yo man with a PMH of HTN, DM, BPH and SLE. He was brought in to ER with worsening SOB . The patient has a chronic Interstitial lung disease, the nature of which is not identified. His Lupus has not been typical , and the [employer] has not been treating him with any specific regimen. He has Hypertension, and has been fairly well controlled. He also has mild CKD, and this has worsened since the hospitalization, possibly for hemodynamic reasons. - Current Medication List Current Medications: Active Medications Acetaminophen (Tylenol -) 650 mg PO Q6H PRN PRN Reason: PAIN OR FEVER Albuterol Sulfate (Ventolin 0.083% Nebulizer Soln -) 1 amp NEB Q4H PRN PRN Reason: SHORT OF BREATH/WHEEZING Last Admin: 11/24/17 02:00 Dose: 1 amp Albuterol/Ipratropium (Duoneb -) 1 amp NEB RQID [facility] Last Admin: 11/27/17 08:38 Dose: 1 amp Furosemide (Lasix Injection -) 40 mg IVPUSH BID@1120,1800 [facility] Last Admin: 11/26/17 17:37 Dose: 40 mg Heparin Sodium (Porcine) (Heparin -) 5,000 unit SQ TID [facility] Last Admin: 11/27/17 06:30 Dose: 5,000 unit Propofol (Diprivan -) 1,000,000 mcg in 100 mls @ 4.79 mls/hr IVPB TITR [facility]; Protocol Last Admin: 11/26/17 22:59 Dose: 30 mcg/kg/min, 14.37 mls/hr Vancomycin HCl 1,000 mg/ (Dextrose) 250 mls @ 200 mls/hr IVPB Q24H [facility]; Protocol Piperacillin Sod/Tazobactam (Sod 3.375 gm/ Dextrose) 50 mls @ 100 mls/hr IVPB Q8H-IV [facility]; Protocol Dopamine HCl/Dextrose (Dopamine 400 Mg/D5w -) 400,000 mcg in 250 mls @ 14.969 mls/hr IVPB TITR [facility]; Protocol Last Admin: 11/27/17 02:53 Dose: 9 mcg/kg/min, 26.943 mls/hr Fentanyl 500 mcg/ Dextrose 100 mls @ 20 mls/hr IVPB TITR [facility]; Protocol Last Admin: 11/27/17 06:29 Dose: 100 mcg/hr, 20 mls/hr Insulin Aspart (Novolog Vial Sliding Scale -) 0 vial SQ ACHS [facility]; Protocol Last Admin: 11/27/17 07:22 Dose: 6 units Methylprednisolone Sodium Succinate (Solu-Medrol -) 40 mg IVPUSH Q8H-IV [facility] Last Admin: 11/27/17 09:46 Dose: 40 mg Metoprolol Succinate (Toprol Xl -) 100 mg PO DAILY [facility] Last Admin: 11/27/17 09:25 Dose: Not Given Tamsulosin HCl (Flomax -) 0.4 mg PO DAILY@0830 [facility] Last Admin: 11/27/17 09:24 Dose: Not Given - Objective Vital Signs: Vital Signs Temperature 98.3 F 11/27/17 06:00 Pulse Rate 99 H 11/27/17 08:37 Respiratory Rate 28 H 11/27/17 08:37 Blood Pressure 104/68 11/27/17 08:00 O2 Sat by Pulse Oximetry (%) 98 11/27/17 08:37 Constitutional: Yes: Well Nourished, Pallor Eyes: Yes: Conjunctiva Clear HENT: Yes: Atraumatic Neck: Yes: Trachea Midline Respiratory: Yes: Regular, Intubated, Mechanically Ventilated, Tachypnea Gastrointestinal: Yes: Normal Bowel Sounds, Soft, Abdomen, Obese Genitourinary: No: Bladder Distention Musculoskeletal: Yes: WNL Edema: No Labs: CBC, BMP 11/27/17 05:30 11/27/17 05:30 INR, PTT INR 1.11 (0.83-1.09) H 11/21/17 11:26 Problem List - Problems (1) BURKE (acute kidney injury) Code(s): N17.9 - ACUTE KIDNEY FAILURE, UNSPECIFIED (2) CKD (chronic kidney disease) Code(s): N18.9 - CHRONIC KIDNEY DISEASE, UNSPECIFIED (3) Acute and chronic respiratory failure with hypoxia Code(s): J96.21 - ACUTE AND CHRONIC RESPIRATORY FAILURE WITH HYPOXIA (4) Pneumonia Code(s): J18.9 - PNEUMONIA, UNSPECIFIED ORGANISM (5) SLE (systemic lupus erythematosus) Code(s): M32.9 - SYSTEMIC LUPUS ERYTHEMATOSUS, UNSPECIFIED Assessment/Plan 67 y/o male with h/o atypical SLE, Hypertension, Interstitial lung disease, CKD3 , admitted with acute shortness of breath. The patient developed progressive hypotension. respiratory failure, and worsening renal failure. Acute respiratory failure, vent support, probably due to acute respiratory infection ( Pna). Profound Hypotension. Most likely related to the infectious process. But other factors need to be ruled out. The Chronic Interstitial nephritis with profound hypoxia seems to be deciding factor in his overall prognosis. Acute Kidney Injury, most likely due to hypotension and renal hypoperfusion. Renal functions marginally better. Plan: IV Pressors as needed. IV abx as ordered. Discussed with the ICU staff. The long ter prognosis is dismal Will follow with you. Sylvia Jacobs MD
[2017-11-27] MEDS: FUROSEMIDE 40 MG/4 ML INJECTABLE VIAL IVPUSH SCH ×2 (11:56→17:10)
--- NOTE | 2017-11-27 13:03 | PN ---
Progress Note, Physician History of Present Illness: continues to be intubated no other issues - Current Medication List Current Medications: Active Medications Acetaminophen (Tylenol -) 650 mg PO Q6H PRN PRN Reason: PAIN OR FEVER Albuterol Sulfate (Ventolin 0.083% Nebulizer Soln -) 1 amp NEB Q4H PRN PRN Reason: SHORT OF BREATH/WHEEZING Last Admin: 11/24/17 02:00 Dose: 1 amp Albuterol/Ipratropium (Duoneb -) 1 amp NEB RQID [facility] Last Admin: 11/27/17 11:15 Dose: 1 amp Furosemide (Lasix Injection -) 40 mg IVPUSH BID@1120,1800 [facility] Last Admin: 11/27/17 11:56 Dose: 40 mg Heparin Sodium (Porcine) (Heparin -) 5,000 unit SQ TID [facility] Last Admin: 11/27/17 06:30 Dose: 5,000 unit Propofol (Diprivan -) 1,000,000 mcg in 100 mls @ 4.79 mls/hr IVPB TITR [facility]; Protocol Last Admin: 11/26/17 22:59 Dose: 30 mcg/kg/min, 14.37 mls/hr Vancomycin HCl 1,000 mg/ (Dextrose) 250 mls @ 200 mls/hr IVPB Q24H [facility]; Protocol Piperacillin Sod/Tazobactam (Sod 3.375 gm/ Dextrose) 50 mls @ 100 mls/hr IVPB Q8H-IV [facility]; Protocol Dopamine HCl/Dextrose (Dopamine 400 Mg/D5w -) 400,000 mcg in 250 mls @ 14.969 mls/hr IVPB TITR [facility]; Protocol Last Admin: 11/27/17 02:53 Dose: 9 mcg/kg/min, 26.943 mls/hr Fentanyl 500 mcg/ Dextrose 100 mls @ 20 mls/hr IVPB TITR [facility]; Protocol Last Admin: 11/27/17 11:57 Dose: 100 mcg/hr, 20 mls/hr Insulin Aspart (Novolog Vial Sliding Scale -) 0 vial SQ ACHS [facility]; Protocol Last Admin: 11/27/17 12:03 Dose: 4 units Methylprednisolone Sodium Succinate (Solu-Medrol -) 40 mg IVPUSH Q8H-IV [facility] Last Admin: 11/27/17 09:46 Dose: 40 mg Metoprolol Succinate (Toprol Xl -) 100 mg PO DAILY [facility] Last Admin: 11/27/17 09:25 Dose: Not Given Tamsulosin HCl (Flomax -) 0.4 mg PO DAILY@0830 [facility] Last Admin: 11/27/17 09:24 Dose: Not Given - Objective Vital Signs: Vital Signs Temperature 98.3 F 11/27/17 06:00 Pulse Rate 97 H 11/27/17 10:00 Respiratory Rate 28 H 11/27/17 11:14 Blood Pressure 131/75 11/27/17 10:00 O2 Sat by Pulse Oximetry (%) 98 11/27/17 08:37 Constitutional: Yes: Other Cardiovascular: Yes: Regular Rate and Rhythm Respiratory: Yes: Intubated, Mechanically Ventilated Gastrointestinal: Yes: Normal Bowel Sounds, Soft Musculoskeletal: Yes: WNL Extremities: Yes: WNL Neurological: Yes: Other Psychiatric: Yes: Other Labs: CBC, BMP 11/27/17 05:30 11/27/17 05:30 INR, PTT INR 1.11 (0.83-1.09) H 11/21/17 11:26 Assessment/Plan Respiratory Failure Pneumonia Sepsis Interstitial Lung Disease HTN DM BPH plan continue current management monitor off of abx resp support rest as per icu close monitoring cc 38 min
--- NOTE | 2017-11-27 20:22 | PN ---
Progress Note, Physician History of Present Illness: intubated - Current Medication List Current Medications: Active Medications Acetaminophen (Tylenol -) 650 mg PO Q6H PRN PRN Reason: PAIN OR FEVER Albuterol Sulfate (Ventolin 0.083% Nebulizer Soln -) 1 amp NEB Q4H PRN PRN Reason: SHORT OF BREATH/WHEEZING Last Admin: 11/24/17 02:00 Dose: 1 amp Albuterol/Ipratropium (Duoneb -) 1 amp NEB RQID [facility] Last Admin: 11/27/17 17:10 Dose: 1 amp Furosemide (Lasix Injection -) 40 mg IVPUSH BID@1120,1800 [facility] Last Admin: 11/27/17 17:10 Dose: 40 mg Heparin Sodium (Porcine) (Heparin -) 5,000 unit SQ TID [facility] Last Admin: 11/27/17 13:43 Dose: 5,000 unit Propofol (Diprivan -) 1,000,000 mcg in 100 mls @ 4.79 mls/hr IVPB TITR [facility]; Protocol Last Admin: 11/26/17 22:59 Dose: 30 mcg/kg/min, 14.37 mls/hr Vancomycin HCl 1,000 mg/ (Dextrose) 250 mls @ 200 mls/hr IVPB Q24H [facility]; Protocol Piperacillin Sod/Tazobactam (Sod 3.375 gm/ Dextrose) 50 mls @ 100 mls/hr IVPB Q8H-IV [facility]; Protocol Dopamine HCl/Dextrose (Dopamine 400 Mg/D5w -) 400,000 mcg in 250 mls @ 14.969 mls/hr IVPB TITR [facility]; Protocol Last Admin: 11/27/17 02:53 Dose: 9 mcg/kg/min, 26.943 mls/hr Fentanyl 500 mcg/ Dextrose 100 mls @ 20 mls/hr IVPB TITR [facility]; Protocol Last Admin: 11/27/17 18:28 Dose: 100 mcg/hr, 20 mls/hr Insulin Aspart (Novolog Vial Sliding Scale -) 0 vial SQ ACHS [facility]; Protocol Last Admin: 11/27/17 17:08 Dose: 4 units Methylprednisolone Sodium Succinate (Solu-Medrol -) 40 mg IVPUSH Q8H-IV [facility] Last Admin: 11/27/17 17:10 Dose: 40 mg Metoprolol Succinate (Toprol Xl -) 100 mg PO DAILY [facility] Last Admin: 11/27/17 09:25 Dose: Not Given Tamsulosin HCl (Flomax -) 0.4 mg PO DAILY@0830 [facility] Last Admin: 11/27/17 09:24 Dose: Not Given - Objective Vital Signs: Vital Signs Temperature 98.1 F 11/27/17 18:00 Pulse Rate 104 H 11/27/17 18:00 Respiratory Rate 30 H 11/27/17 18:58 Blood Pressure 95/64 11/27/17 18:00 O2 Sat by Pulse Oximetry (%) 98 11/27/17 08:37 Constitutional: Yes: No Distress HENT: Yes: Atraumatic Neck: Yes: Supple Cardiovascular: Yes: Regular Rate and Rhythm Respiratory: Yes: Rhonchi Gastrointestinal: Yes: Normal Bowel Sounds Extremities: Yes: WNL Labs: CBC, BMP 11/27/17 05:30 11/27/17 05:30 INR, PTT INR 1.11 (0.83-1.09) H 11/21/17 11:26 Problem List - Problems (1) Acute respiratory failure with hypoxia Assessment/Plan: on bipap doing better Code(s): J96.01 - ACUTE RESPIRATORY FAILURE WITH HYPOXIA (2) Pneumonia Assessment/Plan: on iv abx duo nebs bcxs sent Code(s): J18.9 - PNEUMONIA, UNSPECIFIED ORGANISM Qualifiers: Lung location: unspecified part of lung (3) SLE (systemic lupus erythematosus) Code(s): M32.9 - SYSTEMIC LUPUS ERYTHEMATOSUS, UNSPECIFIED Qualifiers: Systemic lupus erythematosus organ involvement: unspecified (4) Sepsis Assessment/Plan: on iv abx ivf if needed bcxs and u cxs sent Code(s): A41.9 - SEPSIS, UNSPECIFIED ORGANISM Qualifiers: Sepsis type: sepsis due to unspecified organism Qualified Code(s): A41.9 - Sepsis, unspecified organism Assessment/Plan icu cc time 35 min
[2017-11-27] MEDS: PROPOFOL 1,000,000 MCG/100 ML VIAL IVPB SCH (20:59)
[2017-11-28] MEDS ORDERED: fentaNYL CITRATE 250 MCG/5 ML VIAL ONE ×4 (00:34→23:50)
[2017-11-28] MEDS: FENTANYL INJECTION 500 MCG in DEXTROSE 5%-WATER - 90 ML IVPB SCH ×2 (00:39→06:17)
[2017-11-28] MEDS: methylPREDNISolone NA SUCC 40 MG/1 ML VIAL IVPUSH SCH ×3 (02:30→17:28)
[2017-11-28] MEDS: HEPARIN NA (PORCINE) 5,000 UNITS/ML 1ML VIAL SQ SCH ×3 (06:18→22:04)
[2017-11-28] MEDS: INSULIN SLIDING SCALE (NOVOLOG) 1 VIAL SQ SCH ×4 (06:19→22:12)
[2017-11-28 07:06] LABS: ANION GAP 5 MMOL/L (8-16); BLOOD UREA NITROGEN 94 mg/dL (7-18); CALCIUM 8.6 mg/dL (8.5-10.1); CHLORIDE 103 mmol/L (98-107); CO2 38 mmol/L (21-32); CREATININE 1.9 mg/dL (0.55-1.3); GLUCOSE,RANDOM 204 mg/dL (74-106); MAGNESIUM 2.4 mg/dL (1.8-2.4); PHOSPHOROUS 5.8 mg/dL (2.5-4.9); SODIUM 145 mmol/L (136-145)
[2017-11-28 07:36] LABS: BASO % 0.1 % (0-2.0); HEMATOCRIT 39.9 % (35.4-49); LYMPH % 1.4 % (8-40); MCH 30.2 pg (25.7-33.7); MCHC 32.4 g/dl (32.0-35.9); MEAN CELL VOLUME 93.2 fl (80-96); MEAN PLT VOLUME 9.6 fl (7.5-11.1); MONO % 2.6 % (3.8-10.2); NEUT % 95.9 % (42.8-82.8); PLATELET COUNT 155 K/MM3 (134-434); RBC 4.28 M/mm3 (4.00-5.60); RDW 15.4 % (11.9-15.9)
[2017-11-28] MEDS: ALBUTEROL SO4 2.5/IPRATROPIUM 0.5 INH SOL 3 ML VIAL.NEB. NEB SCH ×4 (07:40→20:02)
[2017-11-28 08:29] LABS: ARTERIAL BLD GAS O2 SATURATION 99.7 % (90-98.9); ARTERIAL BLOOD GAS PCO2 61.5 mmHg (35-45); ARTERIAL BLOOD GAS pH 7.41 (7.35-7.45)
[2017-11-28 08:37] LABS: ALLENS TEST POSITIVE
[2017-11-28] MEDS: MIDAZOLAM 100 MG in SODIUM CHLORIDE 100 ML IVPB SCH (09:35)
[2017-11-28] MEDS: TAMSULOSIN HCL 0.4 MG CAP PO SCH (09:46)
[2017-11-28 10:39] LABS: ANISOCYTOSIS 1+; MACROCYTOSIS 1+; PLATELET ESTIMATE DECREASED; TEAR DROP CELLS 1+
--- NOTE | 2017-11-28 11:49 | CON.CARD ---
Consult Consult Specialty:: Cardiology Referred by:: Deandre Merino MD Reason for Consultation:: Ventilator-dependent respiratory failure - History of Present Illness Chief Complaint: Respiratory failure History of Present Illness: 67 yo male with h/o interstitial lung disease, chronic hypoxic respiratory failure on home O2, HTN, DM, BPH, CAD abnormal MPI, diastolic dysfunction with MV prolapse initially admitted with worsening shortness of breath, productive cough productive of white sputum, subjective fevers and chills, left-sided PNA, acute on chronuc hypoxic respiratory failure, intubated for progressive respiratoy failure, currently sedated, hemodynamics stabilizing. - History Source History Provided By: Patient Limitations to Obtaining History: No Limitations - Past Medical History Cardio/Vascular: Yes: HTN, Pulmonary Hypertension (??) Pulmonary: Yes: Pneumonia Renal/: Yes: Renal Failure, Renal Inusuff Rheumatology: Yes: Lupus Endocrine: Yes: Diabetes Mellitus - Alcohol/Substance Use Hx Alcohol Use: No - Smoking History Smoking history: Never smoked Have you smoked in the past 12 months: No Home Medications - Allergies Allergies/Adverse Reactions: Allergies Allergy/AdvReac Type Severity Reaction Status Date / Time No Known Allergies Allergy Verified 11/21/17 10:43 - Home Medications Home Medications: Ambulatory Orders Allopurinol 300 mg PO DAILY 06/04/17 Metformin HCl [Metformin HCl ER] 500 mg PO DAILY 06/04/17 Metoprolol Succinate [Toprol Xl] 100 mg PO DAILY 06/04/17 Olmesartan/Amlodipin/Hcthiazid [Jekjwmv-Fismht-Mfdq 40-10-25Mg] 1 each PO DAILY 06/04/17 Tamsulosin HCl [Flomax -] 0.4 mg PO DAILY 06/04/17 Budesonide/Formeterol Fumarate [SYMBICORT 160/4.5mcg -] 2 puff IH BID inhaler 09/14/17 Tiotropium Wister [Spiriva] 1 puff IH DAILY cap 09/14/17 Family Disease History - Family Disease History Family Disease History: Other: Sister (His sister had lupus.) Review of Systems Unable to obtain ROS, reason: Sedated and intubated Vital Signs: Vital Signs Temperature 98.2 F 11/28/17 10:00 Pulse Rate 90 11/28/17 10:00 Respiratory Rate 28 H 11/28/17 11:34 Blood Pressure 89/57 L 11/28/17 10:00 O2 Sat by Pulse Oximetry (%) 96 11/28/17 08:48 Constitutional: Yes: No Distress, Calm, Thin Neck: Yes: Supple Respiratory: Yes: Intubated, Mechanically Ventilated, Rhonchi Gastrointestinal: Yes: Normal Bowel Sounds, Soft Cardiovascular: Yes: Regular Rate and Rhythm JVD: No Carotid Bruit: No Heart Sounds: Yes: S1, S2 Edema: No - Other Data Labs, Other Data: CBC, BMP 11/28/17 05:30 11/28/17 05:30 INR, PTT INR 1.11 (0.83-1.09) H 11/21/17 11:26 ST @ 106 Ejection Fraction %: LVEF > or = 40 % Imaging - Results Chest X-ray: Report Reviewed (Diffuse airspace disease) Cat Scan: Report Reviewed (Chest CT: LLL interstitial infiltrate, chronic interstial changes c/w traction bronchiectasis, dilated PA) Problem List - Problems (1) Hypertension Code(s): I10 - ESSENTIAL (PRIMARY) HYPERTENSION Qualifiers: Hypertension type: essential hypertension Qualified Code(s): I10 - Essential (primary) hypertension (2) Old myocardial infarction Code(s): I25.2 - OLD MYOCARDIAL INFARCTION (3) Acute and chronic respiratory failure with hypoxia Code(s): J96.21 - ACUTE AND CHRONIC RESPIRATORY FAILURE WITH HYPOXIA (4) CKD (chronic kidney disease) Code(s): N18.9 - CHRONIC KIDNEY DISEASE, UNSPECIFIED Qualifiers: Chronic kidney disease stage: stage 2 (mild) Qualified Code(s): N18.2 - Chronic kidney disease, stage 2 (mild) (5) Pneumonia Code(s): J18.9 - PNEUMONIA, UNSPECIFIED ORGANISM Qualifiers: Lung location: unspecified part of lung (6) SLE (systemic lupus erythematosus) Code(s): M32.9 - SYSTEMIC LUPUS ERYTHEMATOSUS, UNSPECIFIED Qualifiers: Systemic lupus erythematosus organ involvement: unspecified (7) Sepsis Code(s): A41.9 - SEPSIS, UNSPECIFIED ORGANISM Qualifiers: Sepsis type: sepsis due to unspecified organism Qualified Code(s): A41.9 - Sepsis, unspecified organism Assessment/Plan 09/09/2017 Echo: Normal LV size and fxn, normal RV size and fxn, mild AR, MR, TR RVSP 30-40 mmHg 11/02/2017 Myoview: Moderate inferoapical infarct with vandana-infarct ischemia , LVEF 57% 1. Acute on Chronic Hypoxic Respiratory Failure 2. Pneumonia 3. Sepsis 4. Interstitial Lung Disease 5. Acute on chronic diastolic heart failure improved 5. Acute on CKD due to hypotension and renal hypoperfusion improving 6. CAD post HI with abnormal MPI 7. HTN 8. DM 9. BPH P:1. Holding diuresis with monitor diuretic response, renal fxn and electrolytes 2. BD, steroid taper, vent wean as tolerated 3. Wean pressors as tolerated, holding Toprol pending hemodynamic stabilization 4. Thank you for consultative opportunity
--- NOTE | 2017-11-28 13:48 | PN ---
Teaching Attending Note Name of Resident: James Vasquez ATTENDING PHYSICIAN STATEMENT I saw and evaluated the patient. I reviewed the resident's note and discussed the case with the resident. I agree with the resident's findings and plan as documented. SUBJECTIVE: Patient seen and examined in the ICU. Intubated on AC Mode of vent, 80% FiO2. Dopamine @ 4 mcq for hemodynamic support. Intake & Output 11/25/17 11/26/17 11/27/17 11/28/17 23:59 23:59 23:59 23:59 Intake Total 690 1162.3 1187.0 519.4 Output Total 1900 1300 2700 800 Balance -1210 -137.7 -1513.0 -280.6 Weight 176 lb 177 lb 173 lb 4.8 oz 168 lb 1 oz Last Vital Signs Temp Pulse Resp BP Pulse Ox 98.2 F 93 H 21 H 93/56 L 96 11/28/17 10:00 11/28/17 12:00 11/28/17 12:00 11/28/17 12:00 11/28/17 08:48 Active Medications Acetaminophen (Tylenol -) 650 mg PO Q6H PRN PRN Reason: PAIN OR FEVER Albuterol Sulfate (Ventolin 0.083% Nebulizer Soln -) 1 amp NEB Q4H PRN PRN Reason: SHORT OF BREATH/WHEEZING Last Admin: 11/24/17 02:00 Dose: 1 amp Albuterol/Ipratropium (Duoneb -) 1 amp NEB RQID [facility] Last Admin: 11/28/17 11:34 Dose: 1 amp Heparin Sodium (Porcine) (Heparin -) 5,000 unit SQ TID [facility] Last Admin: 11/28/17 06:18 Dose: 5,000 unit Propofol (Diprivan -) 1,000,000 mcg in 100 mls @ 4.79 mls/hr IVPB TITR [facility]; Protocol Last Admin: 11/27/17 20:59 Dose: 30 mcg/kg/min, 14.37 mls/hr Vancomycin HCl 1,000 mg/ (Dextrose) 250 mls @ 200 mls/hr IVPB Q24H [facility]; Protocol Piperacillin Sod/Tazobactam (Sod 3.375 gm/ Dextrose) 50 mls @ 100 mls/hr IVPB Q8H-IV [facility]; Protocol Dopamine HCl/Dextrose (Dopamine 400 Mg/D5w -) 400,000 mcg in 250 mls @ 14.969 mls/hr IVPB TITR [facility]; Protocol Last Titration: 11/28/17 05:08 Dose: 6 mcg/kg/min, 17.962 mls/hr Fentanyl 500 mcg/ Dextrose 100 mls @ 20 mls/hr IVPB TITR [facility]; Protocol Last Admin: 11/28/17 06:17 Dose: 100 mcg/hr, 20 mls/hr Midazolam HCl 100 mg/ Sodium (Chloride) 100 mls @ 2 mls/hr IVPB TITR [facility]; Protocol Last Admin: 11/28/17 09:35 Dose: 2 mg/hr, 2 mls/hr Insulin Aspart (Novolog Vial Sliding Scale -) 0 vial SQ ACHS [facility]; Protocol Last Admin: 11/28/17 12:12 Dose: 4 units Methylprednisolone Sodium Succinate (Solu-Medrol -) 40 mg IVPUSH Q8H-IV [facility] Last Admin: 11/28/17 09:35 Dose: 40 mg Metoprolol Succinate (Toprol Xl -) 100 mg PO DAILY [facility] Last Admin: 11/28/17 09:47 Dose: Not Given Tamsulosin HCl (Flomax -) 0.4 mg PO DAILY@0830 [facility] Last Admin: 11/28/17 09:46 Dose: Not Given Gen: Intubated and sedated Heart: RRR Lung: Bilateral coarse crackles / rhonchi Abd: soft, nontender Ext: no edema Laboratory Results - last 24 hr 11/27/17 11/27/17 11/28/17 17:06 22:23 05:30 WBC 10.0 RBC 4.28 Hgb 13.0 Hct 39.9 MCV 93.2 MCH 30.2 MCHC 32.4 RDW 15.4 Plt Count 155 MPV 9.6 Absolute Neuts (auto) 9.6 H Neutrophils % 95.9 H Neutrophils % (Manual) 93.3 H Band Neutrophils % 1.9 Lymphocytes % 1.4 L D Lymphocytes % (Manual) 1.0 L D Monocytes % 2.6 L Monocytes % (Manual) 0 L D Eosinophils % 0.0 Eosinophils % (Manual) 3.8 D Basophils % 0.1 Basophils % (Manual) 0.0 Myelocytes % (Man) 0 Promyelocytes % (Man) 0 Blast Cells % (Manual) 0 Nucleated RBC % 0 Metamyelocytes 0 D Hypochromia 0 Platelet Estimate Decreased Polychromasia 1+ Poikilocytosis 1+ Anisocytosis 1+ Microcytosis 0 Macrocytosis 1+ Tear Drop Cells 1+ Puncture Site ABG pH ABG pCO2 at Pt Temp ABG pO2 at Pt Temp ABG HCO3 ABG O2 Sat (Measured) ABG O2 Content ABG Base Excess Bassem Test O2 Delivery Device Oxygen Flow Rate Vent Mode Vent Rate Mechanical Rate PEEP Pressure Support Vent Sodium Potassium Chloride Carbon Dioxide Anion Gap BUN Creatinine Creat Clearance w eGFR POC Glucometer 240.71960 143.96456 Random Glucose Calcium Phosphorus Magnesium 11/28/17 11/28/17 11/28/17 05:30 05:39 08:10 WBC RBC Hgb Hct MCV MCH MCHC RDW Plt Count MPV Absolute Neuts (auto) Neutrophils % Neutrophils % (Manual) Band Neutrophils % Lymphocytes % Lymphocytes % (Manual) Monocytes % Monocytes % (Manual) Eosinophils % Eosinophils % (Manual) Basophils % Basophils % (Manual) Myelocytes % (Man) Promyelocytes % (Man) Blast Cells % (Manual) Nucleated RBC % Metamyelocytes Hypochromia Platelet Estimate Polychromasia Poikilocytosis Anisocytosis Microcytosis Macrocytosis Tear Drop Cells Puncture Site Right radial ABG pH 7.41 ABG pCO2 at Pt Temp 61.5 H* ABG pO2 at Pt Temp 173.0 H* ABG HCO3 37.8 H ABG O2 Sat (Measured) 99.7 H* ABG O2 Content 18.1 ABG Base Excess 11.0 H Bassem Test Positive O2 Delivery Device Vent Oxygen Flow Rate 80% Vent Mode A/c Vent Rate 28 Mechanical Rate Yes PEEP 10.0 Pressure Support Vent 420 Sodium 145 Potassium 4.0 Chloride 103 Carbon Dioxide 38 H Anion Gap 5 L BUN 94 H Creatinine 1.9 H Creat Clearance w eGFR 35.32 POC Glucometer 231.82696 Random Glucose 204 H Calcium 8.6 Phosphorus 5.8 H Magnesium 2.4 11/28/17 12:08 WBC RBC Hgb Hct MCV MCH MCHC RDW Plt Count MPV Absolute Neuts (auto) Neutrophils % Neutrophils % (Manual) Band Neutrophils % Lymphocytes % Lymphocytes % (Manual) Monocytes % Monocytes % (Manual) Eosinophils % Eosinophils % (Manual) Basophils % Basophils % (Manual) Myelocytes % (Man) Promyelocytes % (Man) Blast Cells % (Manual) Nucleated RBC % Metamyelocytes Hypochromia Platelet Estimate Polychromasia Poikilocytosis Anisocytosis Microcytosis Macrocytosis Tear Drop Cells Puncture Site ABG pH ABG pCO2 at Pt Temp ABG pO2 at Pt Temp ABG HCO3 ABG O2 Sat (Measured) ABG O2 Content ABG Base Excess Bassem Test O2 Delivery Device Oxygen Flow Rate Vent Mode Vent Rate Mechanical Rate PEEP Pressure Support Vent Sodium Potassium Chloride Carbon Dioxide Anion Gap BUN Creatinine Creat Clearance w eGFR POC Glucometer 224.32693 Random Glucose Calcium Phosphorus Magnesium ASSESSMENT AND PLAN: Acute on Chronic Hypoxic Respiratory Failure Pneumonia Sepsis Volume Overload Interstitial Lung Disease HTN DM BPH - Wean FiO2 - Wean Dopamine - Hold Lasix - monitor urine output, creatinine - replete lytes - monitor CXR - ABX - Continue medrol - inhaled bronchodilators - Will need further discussions with the patient/family regarding GOC given advanced/end stage ILD - continue ICU monitoring due to tenuous respiratory status Dr Javier Critical care time spent in reviewing chart, evaluating patient and formulating plan 35 min
--- NOTE | 2017-11-28 15:46 | PN ---
Progress Note, Physician History of Present Illness: continues to be intubated weaning off of pressors continues to require lot of support family in room - Current Medication List Current Medications: Active Medications Acetaminophen (Tylenol -) 650 mg PO Q6H PRN PRN Reason: PAIN OR FEVER Albuterol Sulfate (Ventolin 0.083% Nebulizer Soln -) 1 amp NEB Q4H PRN PRN Reason: SHORT OF BREATH/WHEEZING Last Admin: 11/24/17 02:00 Dose: 1 amp Albuterol/Ipratropium (Duoneb -) 1 amp NEB RQID [facility] Last Admin: 11/28/17 11:34 Dose: 1 amp Heparin Sodium (Porcine) (Heparin -) 5,000 unit SQ TID [facility] Last Admin: 11/28/17 14:55 Dose: 5,000 unit Propofol (Diprivan -) 1,000,000 mcg in 100 mls @ 4.79 mls/hr IVPB TITR [facility]; Protocol Last Admin: 11/27/17 20:59 Dose: 30 mcg/kg/min, 14.37 mls/hr Vancomycin HCl 1,000 mg/ (Dextrose) 250 mls @ 200 mls/hr IVPB Q24H [facility]; Protocol Piperacillin Sod/Tazobactam (Sod 3.375 gm/ Dextrose) 50 mls @ 100 mls/hr IVPB Q8H-IV [facility]; Protocol Dopamine HCl/Dextrose (Dopamine 400 Mg/D5w -) 400,000 mcg in 250 mls @ 14.969 mls/hr IVPB TITR [facility]; Protocol Last Titration: 11/28/17 05:08 Dose: 6 mcg/kg/min, 17.962 mls/hr Fentanyl 500 mcg/ Dextrose 100 mls @ 20 mls/hr IVPB TITR [facility]; Protocol Last Admin: 11/28/17 06:17 Dose: 100 mcg/hr, 20 mls/hr Midazolam HCl 100 mg/ Sodium (Chloride) 100 mls @ 2 mls/hr IVPB TITR [facility]; Protocol Last Admin: 11/28/17 09:35 Dose: 2 mg/hr, 2 mls/hr Insulin Aspart (Novolog Vial Sliding Scale -) 0 vial SQ ACHS [facility]; Protocol Last Admin: 11/28/17 12:12 Dose: 4 units Methylprednisolone Sodium Succinate (Solu-Medrol -) 40 mg IVPUSH Q8H-IV [facility] Last Admin: 11/28/17 09:35 Dose: 40 mg Metoprolol Succinate (Toprol Xl -) [address] [facility] Last Admin: 11/28/17 09:47 Dose: Not Given Tamsulosin HCl (Flomax -) 0.4 mg PO DAILY@0830 [facility] Last Admin: 11/28/17 09:46 Dose: Not Given - Objective Vital Signs: Vital Signs Temperature 98.8 F 11/28/17 14:00 Pulse Rate 92 H 11/28/17 14:00 Respiratory Rate 28 H 11/28/17 14:23 Blood Pressure 90/59 L 11/28/17 14:00 O2 Sat by Pulse Oximetry (%) 96 11/28/17 08:48 Constitutional: Yes: Other Cardiovascular: Yes: Regular Rate and Rhythm, Tachycardia Respiratory: Yes: Intubated, Mechanically Ventilated Gastrointestinal: Yes: Normal Bowel Sounds, Soft Musculoskeletal: Yes: WNL Extremities: Yes: WNL Neurological: Yes: Other Labs: CBC, BMP 11/28/17 05:30 11/28/17 05:30 INR, PTT INR 1.11 (0.83-1.09) H 11/21/17 11:26 - ....Imaging Chest X-ray: Report Reviewed, Image Reviewed Assessment/Plan Respiratory Failure Pneumonia Sepsis Interstitial Lung Disease HTN DM BPH 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
--- NOTE | 2017-11-28 16:23 | PN ---
Physical Exam: SUBJECTIVE: Patient seen and examined. No acute events overnight. Pt. is being weaned off versed drip and placed back on Profol and Fentanyl. Pt. is being weaned off dopamine drip. Pt. has not had a BM. OBJECTIVE: Vital Signs Period Temp Pulse Resp BP Sys/Paul Pulse Ox Last 24 Hr 98.1 F-98.8 F 90-104 21-30 82-121/49-72 96-100 GENERAL: The patient is sedated, arousable to tactile stimuli EYES: PERRL, extraocular movements intact, sclera anicteric, conjunctiva clear. No ptosis. ENT: Ears normal, nares patent, dry mucous membranes. LUNGS: Mechanical ventilation, diffuse lung crackles, no accessory muscle use. HEART: Regular rate and rhythm, S1, S2 without murmur ABDOMEN: Soft, nontender, nondistended, normoactive bowel sounds, no guarding, no rebound EXTREMITIES: 2+ dorsal pedal pulses, 1+ radial pulse, warm, well-perfused, no edema. SKIN: Warm, dry, normal turgor Laboratory Results - last 24 hr 11/27/17 11/27/17 11/28/17 17:06 22:23 05:30 WBC 10.0 RBC 4.28 Hgb 13.0 Hct 39.9 MCV 93.2 MCH 30.2 MCHC 32.4 RDW 15.4 Plt Count 155 MPV 9.6 Absolute Neuts (auto) 9.6 H Neutrophils % 95.9 H Neutrophils % (Manual) 93.3 H Band Neutrophils % 1.9 Lymphocytes % 1.4 L D Lymphocytes % (Manual) 1.0 L D Monocytes % 2.6 L Monocytes % (Manual) 0 L D Eosinophils % 0.0 Eosinophils % (Manual) 3.8 D Basophils % 0.1 Basophils % (Manual) 0.0 Myelocytes % (Man) 0 Promyelocytes % (Man) 0 Blast Cells % (Manual) 0 Nucleated RBC % 0 Metamyelocytes 0 D Hypochromia 0 Platelet Estimate Decreased Polychromasia 1+ Poikilocytosis 1+ Anisocytosis 1+ Microcytosis 0 Macrocytosis 1+ Tear Drop Cells 1+ Puncture Site ABG pH ABG pCO2 at Pt Temp ABG pO2 at Pt Temp ABG HCO3 ABG O2 Sat (Measured) ABG O2 Content ABG Base Excess Bassem Test O2 Delivery Device Oxygen Flow Rate Vent Mode Vent Rate Mechanical Rate PEEP Pressure Support Vent Sodium Potassium Chloride Carbon Dioxide Anion Gap BUN Creatinine Creat Clearance w eGFR POC Glucometer 240.53517 143.58252 Random Glucose Calcium Phosphorus Magnesium 11/28/17 11/28/17 11/28/17 05:30 05:39 08:10 WBC RBC Hgb Hct MCV MCH MCHC RDW Plt Count MPV Absolute Neuts (auto) Neutrophils % Neutrophils % (Manual) Band Neutrophils % Lymphocytes % Lymphocytes % (Manual) Monocytes % Monocytes % (Manual) Eosinophils % Eosinophils % (Manual) Basophils % Basophils % (Manual) Myelocytes % (Man) Promyelocytes % (Man) Blast Cells % (Manual) Nucleated RBC % Metamyelocytes Hypochromia Platelet Estimate Polychromasia Poikilocytosis Anisocytosis Microcytosis Macrocytosis Tear Drop Cells Puncture Site Right radial ABG pH 7.41 ABG pCO2 at Pt Temp 61.5 H* ABG pO2 at Pt Temp 173.0 H* ABG HCO3 37.8 H ABG O2 Sat (Measured) 99.7 H* ABG O2 Content 18.1 ABG Base Excess 11.0 H Bassem Test Positive O2 Delivery Device Vent Oxygen Flow Rate 80% Vent Mode A/c Vent Rate 28 Mechanical Rate Yes PEEP 10.0 Pressure Support Vent 420 Sodium 145 Potassium 4.0 Chloride 103 Carbon Dioxide 38 H Anion Gap 5 L BUN 94 H Creatinine 1.9 H Creat Clearance w eGFR 35.32 POC Glucometer 231.42874 Random Glucose 204 H Calcium 8.6 Phosphorus 5.8 H Magnesium 2.4 11/28/17 12:08 WBC RBC Hgb Hct MCV MCH MCHC RDW Plt Count MPV Absolute Neuts (auto) Neutrophils % Neutrophils % (Manual) Band Neutrophils % Lymphocytes % Lymphocytes % (Manual) Monocytes % Monocytes % (Manual) Eosinophils % Eosinophils % (Manual) Basophils % Basophils % (Manual) Myelocytes % (Man) Promyelocytes % (Man) Blast Cells % (Manual) Nucleated RBC % Metamyelocytes Hypochromia Platelet Estimate Polychromasia Poikilocytosis Anisocytosis Microcytosis Macrocytosis Tear Drop Cells Puncture Site ABG pH ABG pCO2 at Pt Temp ABG pO2 at Pt Temp ABG HCO3 ABG O2 Sat (Measured) ABG O2 Content ABG Base Excess Bassem Test O2 Delivery Device Oxygen Flow Rate Vent Mode Vent Rate Mechanical Rate PEEP Pressure Support Vent Sodium Potassium Chloride Carbon Dioxide Anion Gap BUN Creatinine Creat Clearance w eGFR POC Glucometer 224.29059 Random Glucose Calcium Phosphorus Magnesium Active Medications Current Medications Acetaminophen (Tylenol -) 650 mg PO Q6H PRN PRN Reason: PAIN OR FEVER Albuterol Sulfate (Ventolin 0.083% Nebulizer Soln -) 1 amp NEB Q4H PRN PRN Reason: SHORT OF BREATH/WHEEZING Last Admin: 11/24/17 02:00 Dose: 1 amp Albuterol/Ipratropium (Duoneb -) 1 amp NEB RQID [facility] Last Admin: 11/28/17 11:34 Dose: 1 amp Chlorhexidine Gluconate (Hibiclens For Decolonization -) 1 applic TP HS [facility] Heparin Sodium (Porcine) (Heparin -) 5,000 unit SQ TID [facility] Last Admin: 11/28/17 14:55 Dose: 5,000 unit Propofol (Diprivan -) 1,000,000 mcg in 100 mls @ 4.79 mls/hr IVPB TITR [facility]; Protocol Last Admin: 11/27/17 20:59 Dose: 30 mcg/kg/min, 14.37 mls/hr Vancomycin HCl 1,000 mg/ (Dextrose) 250 mls @ 200 mls/hr IVPB Q24H [facility]; Protocol Piperacillin Sod/Tazobactam (Sod 3.375 gm/ Dextrose) 50 mls @ 100 mls/hr IVPB Q8H-IV [facility]; Protocol Dopamine HCl/Dextrose (Dopamine 400 Mg/D5w -) 400,000 mcg in 250 mls @ 14.969 mls/hr IVPB TITR [facility]; Protocol Last Titration: 11/28/17 05:08 Dose: 6 mcg/kg/min, 17.962 mls/hr Fentanyl 500 mcg/ Dextrose 100 mls @ 20 mls/hr IVPB TITR [facility]; Protocol Last Admin: 11/28/17 06:17 Dose: 100 mcg/hr, 20 mls/hr Midazolam HCl 100 mg/ Sodium (Chloride) 100 mls @ 2 mls/hr IVPB TITR [facility]; Protocol Last Admin: 11/28/17 09:35 Dose: 2 mg/hr, 2 mls/hr Insulin Aspart (Novolog Vial Sliding Scale -) 0 vial SQ ACHS [facility]; Protocol Last Admin: 10/08/18 12:12 Dose: 4 units Methylprednisolone Sodium Succinate (Solu-Medrol -) 40 mg IVPUSH Q8H-IV [facility] Last Admin: 11/28/17 09:35 Dose: 40 mg Metoprolol Succinate (Toprol Xl -) 100 mg PO DAILY [facility] Last Admin: 11/28/17 09:47 Dose: Not Given Tamsulosin HCl (Flomax -) 0.4 mg PO DAILY@0830 [facility] Last Admin: 11/28/17 09:46 Dose: Not Given ASSESSMENT/PLAN: A 67 y.o. M w/ PMHx. ILD, chronic hypoxic respiratory failure (on 2L NC at home) , recurrent PNA, SLE/lupus, HTN, DM2, BPH, presents to the ICU with acute hypoxic respiratory failure 2/2 PNA and hypervolemia. #Pulmonology -Acute hypoxic respiratory failure 2/2 PNA and hypervolemia Started Lasix 40mg BID monitor Cr. D/c Zosyn Pt. currently intubated on dopamine 4mcg and Versed 2mg. Will try to wean off dopamine as Pt. was RSI on fentanyl and propofol. c/w Solu-medrol 40mg Q8H c/w Duonebs c/w ventolin Neb #Gastroenterology -Diverticulosis -stable monitor for bleeding and worsening abdominal pain monitor stool for constipation #Infectious Disease -Sepsis 2/2 PNA -resolved D/c Zosyn #Cardiology -HTN c/w Losartan 100mg, Norvasc, 10mg and Metoprolol 100mg #Urology -BPH c/w Flomax #Endocrinology -DM2 ISS BGM #F/E/N -D/C IVF, restrict fluids -monitor electrolytes and replete as needed -Glucerna 1.5 tube feeds -D/C Lasix #PPx. -DVT Lovenox SQ Visit type - Emergency Visit Emergency Visit: Yes ED Registration Date: 11/21/17 Care time: The patient presented to the Emergency Department on the above date and was hospitalized for further evaluation of their emergent condition. - New Patient This patient is new to me today: No - Critical Care Critical Care patient: Yes Total Critical Care Time (in minutes): 42 Critical Care Statement: The care of this patient involved high complexity decision making to prevent further life threatening deterioration of the patient 's condition and/or to evaluate & treat vital organ system(s) failure or risk of failure. - Discharge Referral Referred to [facility] No
--- NOTE | 2017-11-28 18:56 | PN ---
Progress Note, Physician - Current Medication List Current Medications: Active Medications Acetaminophen (Tylenol -) 650 mg PO Q6H PRN PRN Reason: PAIN OR FEVER Albuterol Sulfate (Ventolin 0.083% Nebulizer Soln -) 1 amp NEB Q4H PRN PRN Reason: SHORT OF BREATH/WHEEZING Last Admin: 11/24/17 02:00 Dose: 1 amp Albuterol/Ipratropium (Duoneb -) 1 amp NEB RQID [facility] Last Admin: 11/28/17 16:15 Dose: 1 amp Chlorhexidine Gluconate (Hibiclens For Decolonization -) 1 applic TP HS [facility] Heparin Sodium (Porcine) (Heparin -) 5,000 unit SQ TID [facility] Last Admin: 11/28/17 14:55 Dose: 5,000 unit Propofol (Diprivan -) 1,000,000 mcg in 100 mls @ 4.79 mls/hr IVPB TITR [facility]; Protocol Last Admin: 11/27/17 20:59 Dose: 30 mcg/kg/min, 14.37 mls/hr Vancomycin HCl 1,000 mg/ (Dextrose) 250 mls @ 200 mls/hr IVPB Q24H [facility]; Protocol Piperacillin Sod/Tazobactam (Sod 3.375 gm/ Dextrose) 50 mls @ 100 mls/hr IVPB Q8H-IV [facility]; Protocol Dopamine HCl/Dextrose (Dopamine 400 Mg/D5w -) 400,000 mcg in 250 mls @ 14.969 mls/hr IVPB TITR [facility]; Protocol Last Titration: 11/28/17 05:08 Dose: 6 mcg/kg/min, 17.962 mls/hr Fentanyl 500 mcg/ Dextrose 100 mls @ 20 mls/hr IVPB TITR [facility]; Protocol Last Admin: 11/28/17 06:17 Dose: 100 mcg/hr, 20 mls/hr Midazolam HCl 100 mg/ Sodium (Chloride) 100 mls @ 2 mls/hr IVPB TITR [facility]; Protocol Last Admin: 11/28/17 09:35 Dose: 2 mg/hr, 2 mls/hr Insulin Aspart (Novolog Vial Sliding Scale -) 0 vial SQ ACHS [facility]; Protocol Last Admin: 11/28/17 16:50 Dose: 2 units Methylprednisolone Sodium Succinate (Solu-Medrol -) 40 mg IVPUSH Q8H-IV [facility] Last Admin: 11/28/17 17:28 Dose: 40 mg Metoprolol Succinate (Toprol Xl -) 100 mg PO DAILY [facility] Last Admin: 11/28/17 09:47 Dose: Not Given Tamsulosin HCl (Flomax -) 0.4 mg PO DAILY@0830 [facility] Last Admin: 11/28/17 09:46 Dose: Not Given - Objective Vital Signs: Vital Signs Temperature 97.1 F L 11/28/17 18:00 Pulse Rate 87 11/28/17 18:00 Respiratory Rate 28 H 11/28/17 18:37 Blood Pressure 81/54 L 11/28/17 18:00 O2 Sat by Pulse Oximetry (%) 97 11/28/17 08:50 HENT: Yes: Atraumatic Neck: Yes: Supple Cardiovascular: Yes: Regular Rate and Rhythm Respiratory: Yes: Rhonchi Gastrointestinal: Yes: Normal Bowel Sounds Extremities: Yes: WNL Labs: CBC, BMP 11/28/17 05:30 11/28/17 05:30 INR, PTT INR 1.11 (0.83-1.09) H 11/21/17 11:26 Problem List - Problems (1) Acute respiratory failure with hypoxia Assessment/Plan: on bipap doing better Code(s): J96.01 - ACUTE RESPIRATORY FAILURE WITH HYPOXIA (2) Pneumonia Assessment/Plan: on iv abx duo nebs bcxs sent Code(s): J18.9 - PNEUMONIA, UNSPECIFIED ORGANISM Qualifiers: Lung location: unspecified part of lung (3) SLE (systemic lupus erythematosus) Code(s): M32.9 - SYSTEMIC LUPUS ERYTHEMATOSUS, UNSPECIFIED Qualifiers: Systemic lupus erythematosus organ involvement: unspecified (4) Sepsis Code(s): A41.9 - SEPSIS, UNSPECIFIED ORGANISM Qualifiers: Sepsis type: sepsis due to unspecified organism Qualified Code(s): A41.9 - Sepsis, unspecified organism Assessment/Plan icu 30 min
[2017-11-28] MEDS: PROPOFOL 1,000,000 MCG/100 ML VIAL IVPB SCH (22:04)
[2017-11-28] MEDS: CHLORHEXIDINE GLUCONATE 4% CLEANSER FOR DECOLONIZATION TP SCH (22:05)
[2017-11-28] MEDS: DOPAMINE 400 MG/D5W - 400,000 MCG/250 ML INFUS.BAG IVPB SCH (22:05)
[2017-11-29] MEDS: methylPREDNISolone NA SUCC 40 MG/1 ML VIAL IVPUSH SCH ×3 (01:59→17:15)
[2017-11-29] MEDS ORDERED: fentaNYL CITRATE 250 MCG/5 ML VIAL ONE ×4 (05:44→22:37)
[2017-11-29] MEDS: FENTANYL INJECTION 500 MCG in DEXTROSE 5%-WATER - 90 ML IVPB SCH ×4 (05:56→23:30)
[2017-11-29 06:12] LABS: HEMATOCRIT 39.9 % (35.4-49); HEMOGLOBIN 12.8 GM/dL (11.7-16.9); MCH 29.8 pg (25.7-33.7); MCHC 32.1 g/dl (32.0-35.9); MEAN CELL VOLUME 92.8 fl (80-96); MEAN PLT VOLUME 9.6 fl (7.5-11.1); PLATELET COUNT 138 K/MM3 (134-434); RBC 4.29 M/mm3 (4.00-5.60); RDW 15.5 % (11.9-15.9)
[2017-11-29] MEDS: HEPARIN NA (PORCINE) 5,000 UNITS/ML 1ML VIAL SQ SCH ×3 (06:16→21:48)
[2017-11-29] MEDS: INSULIN SLIDING SCALE (NOVOLOG) 1 VIAL SQ SCH ×4 (06:16→21:49)
[2017-11-29 07:00] LABS: ANION GAP 5 MMOL/L (8-16); CALCIUM 8.6 mg/dL (8.5-10.1); CHLORIDE 104 mmol/L (98-107); CO2 39 mmol/L (21-32); CREATININE 1.7 mg/dL (0.55-1.3); GLUCOSE,RANDOM 246 mg/dL (74-106); MAGNESIUM 2.9 mg/dL (1.8-2.4); PHOSPHOROUS 4.6 mg/dL (2.5-4.9); POTASSIUM 3.9 mmol/L (3.5-5.1); SODIUM 149 mmol/L (136-145)
[2017-11-29 07:03] LABS: BLOOD UREA NITROGEN 109 mg/dL (7-18)
--- NOTE | 2017-11-29 07:03 | PN ---
Progress Note (short form) - Note Progress Note: Chief Complaint: Events noted, notes reviewed, remains intubated, sinus rhythm is noted, garcia of non sustained SVT noted History of Present Illness: Seen and examined in the ICU. Events noted, notes reviewed, remains intubated, sinus rhythm is noted, garcia of non sustained SVT noted Echocardiography dated 09/09/2017 Normal LV size and fxn, normal RV size and fxn, mild AR, MR, TR RVSP 30-40 mmHg Dobutamine pharmacologic MPI study dated 11/02/2017 revealed moderate infero- apical infarct with vandana-infarct ischemia, LVEF 57% Medications: Current Medications Acetaminophen (Tylenol -) 650 mg PO Q6H PRN PRN Reason: PAIN OR FEVER Albuterol Sulfate (Ventolin 0.083% Nebulizer Soln -) 1 amp NEB Q4H PRN PRN Reason: SHORT OF BREATH/WHEEZING Last Admin: 11/24/17 02:00 Dose: 1 amp Albuterol/Ipratropium (Duoneb -) 1 amp NEB RQID [facility] Last Admin: 11/28/17 20:02 Dose: 1 amp Chlorhexidine Gluconate (Hibiclens For Decolonization -) 1 applic TP HS [facility] Last Admin: 11/28/17 22:05 Dose: 1 applic Heparin Sodium (Porcine) (Heparin -) 5,000 unit SQ TID [facility] Last Admin: 11/29/17 06:16 Dose: 5,000 unit Propofol (Diprivan -) 1,000,000 mcg in 100 mls @ 4.79 mls/hr IVPB TITR [facility]; Protocol Last Titration: 11/29/17 06:17 Dose: 30 mcg/kg/min, 14.37 mls/hr Vancomycin HCl 1,000 mg/ (Dextrose) 250 mls @ 200 mls/hr IVPB Q24H [facility]; Protocol Piperacillin Sod/Tazobactam (Sod 3.375 gm/ Dextrose) 50 mls @ 100 mls/hr IVPB Q8H-IV [facility]; Protocol Dopamine HCl/Dextrose (Dopamine 400 Mg/D5w -) 400,000 mcg in 250 mls @ 14.969 mls/hr IVPB TITR [facility]; Protocol Last Titration: 11/29/17 06:17 Dose: 1 mcg/kg/min, 2.994 mls/hr Fentanyl 500 mcg/ Dextrose 100 mls @ 20 mls/hr IVPB TITR [facility]; Protocol Last Admin: 11/29/17 05:56 Dose: 100 mcg/hr, 20 mls/hr Midazolam HCl 100 mg/ Sodium (Chloride) 100 mls @ 2 mls/hr IVPB TITR [facility]; Protocol Last Admin: 11/28/17 09:35 Dose: 2 mg/hr, 2 mls/hr Insulin Aspart (Novolog Vial Sliding Scale -) 0 vial SQ ACHS [facility]; Protocol Last Admin: 11/29/17 06:16 Dose: 6 units Methylprednisolone Sodium Succinate (Solu-Medrol -) 40 mg IVPUSH Q8H-IV [facility] Last Admin: 11/29/17 01:59 Dose: 40 mg Metoprolol Succinate (Toprol Xl -) 100 mg PO DAILY [facility] Last Admin: 11/28/17 09:47 Dose: Not Given Tamsulosin HCl (Flomax -) 0.4 mg PO DAILY@0830 [facility] Last Admin: 11/28/17 09:46 Dose: Not Given Review of Systems - Review of Systems Unable to obtain Vital Signs: Last Vital Signs Temp Pulse Resp BP Pulse Ox 98.1 F 73 28 H 93/58 L 100 11/29/17 06:00 11/29/17 06:00 11/29/17 06:52 11/29/17 06:00 11/28/17 23:16 Intake & Output 11/26/17 11/27/17 11/28/17 11/29/17 23:59 23:59 23:59 23:59 Intake Total 1162.3 1187.0 968.8 980 Output Total 1300 2700 2000 700 Balance -137.7 -1513.0 -1031.2 280 Weight 177 lb 173 lb 4.8 oz 168 lb 1 oz 168 lb 1 oz Neck: Supple Negative JVD Respiratory: Bilateral Scattered Rhonchi Cardiovascular: S1 S2 Regular Rate and Rhythm Gastrointestinal: Soft Benign Normal Bowel Sounds Ext: Negative Edema Labs: ABG Results ABG pH 7.41 (7.35-7.45) 11/28/17 08:10 ABG pCO2 at Pt Temp 61.5 mmHg (35-45) H* 11/28/17 08:10 ABG pO2 at Pt Temp 173.0 mmHg (80-100) H* 11/28/17 08:10 ABG HCO3 37.8 meq/L (22-26) H 11/28/17 08:10 ABG O2 Sat (Measured) 99.7 % (90-98.9) H* 11/28/17 08:10 ABG O2 Content 18.1 % vol (15-22) 11/28/17 08:10 ABG Base Excess 11.0 meq/l (-2-2) H 11/28/17 08:10 CBC, BMP 11/29/17 05:30 11/29/17 05:30 Hepatic Panel Total Bilirubin 0.6 mg/dL (0.2-1) 11/27/17 05:30 AST 14 U/L (15-37) L 11/27/17 05:30 ALT 77 U/L (13-61) H 11/27/17 05:30 Alkaline Phosphatase 79 U/L (45-117) 11/27/17 05:30 Albumin 2.3 g/dl (3.4-5.0) L 11/27/17 05:30 Assessment/Plan ASSESSMENT: 1. Acute on Chronic Hypoxic Respiratory Failure related to advanced interstitial disease and 2. Pneumonia complicated by 3. Sepsis syndrome resolving 4. Interstitial Lung Disease, as noted above 5. Acute on chronic class I-II NYHA classification LV diastolic heart failure, clinically improved 6. 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 HTN 8. DM 9. Acute on CKD due to hypotension and renal hypoperfusion improved 10. BPH PLAN: 1. Diuretics as needed with caution and close monitoring of renal function 2. Lopressor hemodynamics permitting once off of pressors 3. Ideally should be on ACEI or ARBS, provided hemodynamic stability and renal function recovery/at baseline once off of pressors 4. Bronchodilators and steroids as per pulmonary service 5. Ventilator wean as tolerated Overall poor prognosis Helder Rivera M.D.
[2017-11-29] MEDS: ALBUTEROL SO4 2.5/IPRATROPIUM 0.5 INH SOL 3 ML VIAL.NEB. NEB SCH ×4 (07:45→20:49)
[2017-11-29] MEDS: TAMSULOSIN HCL 0.4 MG CAP PO SCH (08:50)
--- NOTE | 2017-11-29 12:36 | PN ---
Teaching Attending Note Name of Resident: Wanda Bell ATTENDING PHYSICIAN STATEMENT I saw and evaluated the patient. I reviewed the resident's note and discussed the case with the resident. I agree with the resident's findings and plan as documented. SUBJECTIVE: Patient seen and examined in the ICU. Intubated on AC Mode of vent, 60% FiO2 and PEEP 10. Dopamine @ 2 mcq for hemodynamic support. Intake & Output 11/26/17 11/27/17 11/28/17 11/29/17 23:59 23:59 23:59 23:59 Intake Total 1162.3 1187.0 968.8 980 Output Total 1300 2700 2000 700 Balance -137.7 -1513.0 -1031.2 280 Weight 177 lb 173 lb 4.8 oz 168 lb 1 oz 168 lb 1 oz Last Vital Signs Temp Pulse Resp BP Pulse Ox 97.6 F 86 28 H 97/60 100 11/29/17 10:00 11/29/17 12:00 11/29/17 12:00 11/29/17 12:00 11/29/17 11:45 Active Medications Acetaminophen (Tylenol -) 650 mg PO Q6H PRN PRN Reason: PAIN OR FEVER Albuterol Sulfate (Ventolin 0.083% Nebulizer Soln -) 1 amp NEB Q4H PRN PRN Reason: SHORT OF BREATH/WHEEZING Last Admin: 11/24/17 02:00 Dose: 1 amp Albuterol/Ipratropium (Duoneb -) 1 amp NEB RQID [facility] Last Admin: 11/29/17 11:42 Dose: 1 amp Chlorhexidine Gluconate (Hibiclens For Decolonization -) 1 applic TP HS [facility] Last Admin: 11/28/17 22:05 Dose: 1 applic Heparin Sodium (Porcine) (Heparin -) 5,000 unit SQ TID [facility] Last Admin: 11/29/17 06:16 Dose: 5,000 unit Propofol (Diprivan -) 1,000,000 mcg in 100 mls @ 4.79 mls/hr IVPB TITR [facility]; Protocol Last Titration: 11/29/17 06:17 Dose: 30 mcg/kg/min, 14.37 mls/hr Dopamine HCl/Dextrose (Dopamine 400 Mg/D5w -) 400,000 mcg in 250 mls @ 14.969 mls/hr IVPB TITR [facility]; Protocol Last Titration: 11/29/17 06:17 Dose: 1 mcg/kg/min, 2.994 mls/hr Fentanyl 500 mcg/ Dextrose 100 mls @ 20 mls/hr IVPB TITR [facility]; Protocol Last Admin: 11/29/17 12:00 Dose: 100 mcg/hr, 20 mls/hr Insulin Aspart (Novolog Vial Sliding Scale -) 0 vial SQ ACHS [facility]; Protocol Last Admin: 11/29/17 11:51 Dose: 8 units Methylprednisolone Sodium Succinate (Solu-Medrol -) 40 mg IVPUSH Q8H-IV [facility] Last Admin: 11/29/17 09:19 Dose: 40 mg Midazolam HCl (Versed -) 2 mg IVPUSH Q4H [facility] Tamsulosin HCl (Flomax -) 0.4 mg PO DAILY@0830 [facility] Last Admin: 11/29/17 08:50 Dose: 0.4 mg Gen: Intubated and sedated Heart: RRR Lung: Bilateral coarse crackles / rhonchi Abd: soft, nontender Ext: no edema Laboratory Results - last 24 hr 11/28/17 11/28/17 11/28/17 12:08 16:48 22:11 WBC RBC Hgb Hct MCV MCH MCHC RDW Plt Count MPV Sodium Potassium Chloride Carbon Dioxide Anion Gap BUN Creatinine Creat Clearance w eGFR POC Glucometer 224.71120 194.85689 208.82210 Random Glucose Calcium Phosphorus Magnesium 11/29/17 11/29/17 05:30 05:30 WBC 7.0 RBC 4.29 Hgb 12.8 Hct 39.9 MCV 92.8 MCH 29.8 MCHC 32.1 RDW 15.5 Plt Count 138 MPV 9.6 Sodium 149 H Potassium 3.9 Chloride 104 Carbon Dioxide 39 H Anion Gap 5 L BUN 109 H* Creatinine 1.7 H Creat Clearance w eGFR 40.16 POC Glucometer Random Glucose 246 H Calcium 8.6 Phosphorus 4.6 Magnesium 2.9 H ASSESSMENT AND PLAN: Acute on Chronic Hypoxic Respiratory Failure due to end stage ILD Pneumonia Sepsis Volume Overload Interstitial Lung Disease HTN DM BPH - Wean FiO2 - Wean Dopamine - Continue to hold Lasix - monitor urine output, creatinine - replete lytes - monitor CXR - ABX - Continue medrol - inhaled bronchodilators - Will need further discussions with the patient/family regarding GOC given advanced/end stage ILD - continue ICU monitoring due to tenuous respiratory status Dr Javier Critical care time spent in reviewing chart, evaluating patient and formulating plan 35 min
[2017-11-29] MEDS: PROPOFOL 1,000,000 MCG/100 ML VIAL IVPB SCH ×2 (13:43→21:47)
[2017-11-29] MEDS: MIDAZOLAM 100 MG in SODIUM CHLORIDE 100 ML IVPB SCH (13:50)
--- NOTE | 2017-11-29 16:13 | PN ---
Progress Note, Physician History of Present Illness: intubated - Current Medication List Current Medications: Active Medications Acetaminophen (Tylenol -) 650 mg PO Q6H PRN PRN Reason: PAIN OR FEVER Albuterol Sulfate (Ventolin 0.083% Nebulizer Soln -) 1 amp NEB Q4H PRN PRN Reason: SHORT OF BREATH/WHEEZING Last Admin: 11/24/17 02:00 Dose: 1 amp Albuterol/Ipratropium (Duoneb -) 1 amp NEB RQID [facility] Last Admin: 11/29/17 11:42 Dose: 1 amp Chlorhexidine Gluconate (Hibiclens For Decolonization -) 1 applic TP HS [facility] Last Admin: 11/28/17 22:05 Dose: 1 applic Heparin Sodium (Porcine) (Heparin -) 5,000 unit SQ TID [facility] Last Admin: 11/29/17 13:43 Dose: 5,000 unit Propofol (Diprivan -) 1,000,000 mcg in 100 mls @ 4.79 mls/hr IVPB TITR [facility]; Protocol Last Admin: 11/29/17 13:43 Dose: 5 mcg/kg/min, 2.395 mls/hr Dopamine HCl/Dextrose (Dopamine 400 Mg/D5w -) 400,000 mcg in 250 mls @ 14.969 mls/hr IVPB TITR [facility]; Protocol Last Titration: 11/29/17 06:17 Dose: 1 mcg/kg/min, 2.994 mls/hr Fentanyl 500 mcg/ Dextrose 100 mls @ 20 mls/hr IVPB TITR [facility]; Protocol Last Admin: 11/29/17 12:00 Dose: 100 mcg/hr, 20 mls/hr Insulin Aspart (Novolog Vial Sliding Scale -) 0 vial SQ ACHS [facility]; Protocol Last Admin: 11/29/17 11:51 Dose: 8 units Methylprednisolone Sodium Succinate (Solu-Medrol -) 40 mg IVPUSH Q8H-IV [facility] Last Admin: 11/29/17 09:19 Dose: 40 mg Midazolam HCl (Versed -) 2 mg IVPUSH Q4H PRN PRN Reason: AGITATION Tamsulosin HCl (Flomax -) 0.4 mg PO DAILY@0830 [facility] Last Admin: 11/29/17 08:50 Dose: 0.4 mg - Objective Vital Signs: Vital Signs Temperature 97.8 F 11/29/17 14:00 Pulse Rate 72 11/29/17 15:00 Respiratory Rate 28 H 11/29/17 15:00 Blood Pressure 110/65 11/29/17 15:00 O2 Sat by Pulse Oximetry (%) 100 11/29/17 12:45 Constitutional: Yes: No Distress HENT: Yes: Atraumatic Neck: Yes: Supple Cardiovascular: Yes: Regular Rate and Rhythm Respiratory: Yes: CTA Bilaterally Gastrointestinal: Yes: Normal Bowel Sounds Extremities: Yes: WNL Neurological: Yes: Alert, Oriented Labs: CBC, BMP 11/29/17 05:30 11/29/17 05:30 INR, PTT INR 1.11 (0.83-1.09) H 11/21/17 11:26 Problem List - Problems (1) Acute respiratory failure with hypoxia Assessment/Plan: intubated doing better Code(s): J96.01 - ACUTE RESPIRATORY FAILURE WITH HYPOXIA (2) Pneumonia Assessment/Plan: on iv abx duo nebs bcxs sent Code(s): J18.9 - PNEUMONIA, UNSPECIFIED ORGANISM Qualifiers: Lung location: unspecified part of lung (3) SLE (systemic lupus erythematosus) Code(s): M32.9 - SYSTEMIC LUPUS ERYTHEMATOSUS, UNSPECIFIED Qualifiers: Systemic lupus erythematosus organ involvement: unspecified (4) Sepsis Assessment/Plan: on iv abx ivf if needed bcxs and u cxs noted Code(s): A41.9 - SEPSIS, UNSPECIFIED ORGANISM Qualifiers: Sepsis type: sepsis due to unspecified organism Qualified Code(s): A41.9 - Sepsis, unspecified organism
[2017-11-29] MEDS ORDERED: INSULIN (NOVOLOG) ASPART 100 UNITS/ML 10ML VIAL ONE (16:25)
--- NOTE | 2017-11-29 16:36 | PN ---
Progress Note, Physician History of Present Illness: continues to be sedated and intubated no new events - Current Medication List Current Medications: Active Medications Acetaminophen (Tylenol -) 650 mg PO Q6H PRN PRN Reason: PAIN OR FEVER Albuterol Sulfate (Ventolin 0.083% Nebulizer Soln -) 1 amp NEB Q4H PRN PRN Reason: SHORT OF BREATH/WHEEZING Last Admin: 11/24/17 02:00 Dose: 1 amp Albuterol/Ipratropium (Duoneb -) 1 amp NEB RQID [facility] Last Admin: 11/29/17 16:25 Dose: 1 amp Chlorhexidine Gluconate (Hibiclens For Decolonization -) 1 applic TP HS [facility] Last Admin: 11/28/17 22:05 Dose: 1 applic Heparin Sodium (Porcine) (Heparin -) 5,000 unit SQ TID [facility] Last Admin: 11/29/17 13:43 Dose: 5,000 unit Propofol (Diprivan -) 1,000,000 mcg in 100 mls @ 4.79 mls/hr IVPB [facility]; Protocol Last Admin: 11/29/17 13:43 Dose: 5 mcg/kg/min, 2.395 mls/hr Dopamine HCl/Dextrose (Dopamine 400 Mg/D5w -) 400,000 mcg in 250 mls @ 14.969 mls/hr IVPB [facility]; Protocol Last Titration: 11/29/17 06:17 Dose: 1 mcg/kg/min, 2.994 mls/hr Fentanyl 500 mcg/ Dextrose 100 mls @ 20 mls/hr IVPB [facility]; Protocol Last Admin: 11/29/17 12:00 Dose: 100 mcg/hr, 20 mls/hr Insulin Aspart (Novolog Vial Sliding Scale -) 0 vial SQ ACHS [facility]; Protocol Last Admin: 11/29/17 16:26 Dose: 8 units Methylprednisolone Sodium Succinate (Solu-Medrol -) 40 mg IVPUSH Q8H-IV [facility] Last Admin: 11/29/17 09:19 Dose: 40 mg Midazolam HCl (Versed -) 2 mg IVPUSH Q4H PRN PRN Reason: AGITATION Tamsulosin HCl (Flomax -) 0.4 mg PO DAILY@0830 [facility] Last Admin: 11/29/17 08:50 Dose: 0.4 mg - Objective Vital Signs: Vital Signs Temperature 97.8 F 11/29/17 14:00 Pulse Rate 72 11/29/17 15:00 Respiratory Rate 28 H 11/29/17 16:25 Blood Pressure 110/65 11/29/17 15:00 O2 Sat by Pulse Oximetry (%) 100 11/29/17 12:45 Constitutional: Yes: No Distress, Calm Cardiovascular: Yes: Regular Rate and Rhythm Respiratory: Yes: Intubated, Mechanically Ventilated Gastrointestinal: Yes: Normal Bowel Sounds Musculoskeletal: Yes: WNL Extremities: Yes: WNL Neurological: Yes: Other Labs: CBC, BMP 11/29/17 05:30 11/29/17 05:30 INR, PTT INR 1.11 (0.83-1.09) H 11/21/17 11:26 - ....Imaging Chest X-ray: Report Reviewed, Image Reviewed Assessment/Plan Respiratory Failure Pneumonia Sepsis Interstitial Lung Disease HTN DM BPH plan continue current management monitor off of abx resp support rest as per icu close monitoring intubated vented cc 38 min
--- NOTE | 2017-11-29 17:36 | PN ---
Physical Exam: SUBJECTIVE: - No acute events overnight - Versed drip d/c'd, restarted propofol for sedation with PRN versed OBJECTIVE: Vital Signs Period Temp Pulse Resp BP Sys/Paul Pulse Ox Last 24 Hr 97.1 F-98.1 F 70-87 21-28 81-127/34-76 97-100 General: Sedated HEENT: ETT in place Cards: RRR Pulm: Mechanically ventilated Abd: Soft, nontender, nondistended Ext: Atraumatic. No LE edema. Vasc: Extremities WWP. Skin: Normal color, no rashes or lesions Neuro: Sedated Laboratory Results - last 24 hr 11/28/17 11/29/17 11/29/17 22:11 05:30 05:30 WBC 7.0 RBC 4.29 Hgb 12.8 Hct 39.9 MCV 92.8 MCH 29.8 MCHC 32.1 RDW 15.5 Plt Count 138 MPV 9.6 Sodium 149 H Potassium 3.9 Chloride 104 Carbon Dioxide 39 H Anion Gap 5 L BUN 109 H* Creatinine 1.7 H Creat Clearance w eGFR 40.16 POC Glucometer [phone] Random Glucose 246 H Calcium 8.6 Phosphorus 4.6 Magnesium 2.9 H Active Medications Generic Name Dose Route Start Last Admin Trade Name Freq PRN Reason Stop Dose Admin Acetaminophen 650 mg 11/21/17 13:23 Tylenol - PO Q6H PRN PAIN OR FEVER Albuterol Sulfate 1 amp 11/21/17 14:42 11/24/17 02:00 Ventolin 0.083% Nebulizer Soln - NEB 1 amp Q4H PRN Administration SHORT OF BREATH/WHEEZING Albuterol/Ipratropium 1 amp 11/21/17 16:00 11/29/17 16:25 Duoneb - NEB 1 amp RQID [facility] Administration Chlorhexidine Gluconate 1 applic 11/28/17 22:00 11/28/17 22:05 Hibiclens For Decolonization - TP 1 applic HS [facility] Administration Heparin Sodium (Porcine) 5,000 unit 11/26/17 06:00 11/29/17 13:43 Heparin - SQ 5,000 unit TID [facility] Administration Propofol 1,000,000 mcg in 100 mls @ 4.79 mls/hr 11/25/17 21:15 11/29/17 13:43 Diprivan - IVPB 5 mcg/kg/min TITR [facility] 2.395 mls/hr Administration Protocol 10 MCG/KG/MIN Dopamine HCl/Dextrose 400,000 mcg in 250 mls @ 14.969 mls/hr 11/25/17 22:00 11/29/17 06:17 Dopamine 400 Mg/D5w - IVPB 1 mcg/kg/min TITR [facility] 2.994 mls/hr Titration Protocol 5 MCG/KG/MIN Fentanyl 500 mcg/ Dextrose 100 mls @ 20 mls/hr 11/26/17 23:30 11/29/17 17:16 IVPB 100 mcg/hr TITR [facility] 20 mls/hr Administration Protocol 100 MCG/HR Insulin Aspart 0 vial 11/21/17 16:30 11/29/17 16:26 Novolog Vial Sliding Scale - SQ 8 units ACHS [facility] Administration Protocol Methylprednisolone Sodium Succinate 40 mg 11/21/17 14:45 11/29/17 17:15 Solu-Medrol - IVPUSH 40 mg Q8H-IV [facility] Administration Midazolam HCl 2 mg 11/29/17 12:30 Versed - IVPUSH Q4H PRN AGITATION Tamsulosin HCl 0.4 mg 11/22/17 08:30 11/29/17 08:50 Flomax - PO 0.4 mg DAILY@0830 [facility] Administration ASSESSMENT/PLAN: Mr Simba Simpson is a 67yo man with a PMH of ILD, HTN, HLD, DM who presented to ED last week with acute on chronic hypoxic respiratory failure secondary to pneumonia. He was intially managed with non-invasive ventilation but eventually required intubation and mechanical ventilation, and he was transferred to the ICU. His hospital course has also been complicated by hyptension requiring pressor support. Neuro: - Sedated. - Discontinued versed, restarted propofol - Versed IV push as needed q4hr - Fentanyl drip - Acetaminophen PRN CV: - Hypotension, currently on dopamine for pressure support - Wean dopamine as tolerated - MAP goal 65 - Discontinued home metoprolol and lasix in the setting of hypotension Pulm: - ILD, unclear etiology - Currently intubated on mechanical ventilation. May need trach eventually - discussed with his children, decision pending - Continue duonebs - Continue solumedrol 40mg q8hr Heme: - Hgb stable - Monitor daily CBC GI: - Tolerating tube feeds - No BM, starting miralax Renal: - Monitor I/O - Bates in place ID: - Blood cultures negative - Abx discontinued on 11/28 Endo: - No issues PPx: - SQH - No indication for GI ppx while getting TF FEN: - Tube feeds via NGT - SLIV - Replete lytes PRN Dispo: - Monitor in ICU Seen and discussed with Dr Javier. Wanda Bell PGY1 Visit type - Emergency Visit Emergency Visit: No - New Patient This patient is new to me today: No - Critical Care Critical Care patient: Yes Total Critical Care Time (in minutes): 45 Critical Care Statement: The care of this patient involved high complexity decision making to prevent further life threatening deterioration of the patient 's condition and/or to evaluate & treat vital organ system(s) failure or risk of failure.
[2017-11-29] MEDS: POLYETHYLENE GLYCOL 3350 119 GM BTL NGT SCH (18:45)
[2017-11-29] MEDS: MUPIROCIN 2% TOPICAL OINTMENT FOR DECOLONIZATION NS SCH (21:48)
[2017-11-29] MEDS: DOPAMINE 400 MG/D5W - 400,000 MCG/250 ML INFUS.BAG IVPB SCH (21:48)
[2017-11-29] MEDS: CHLORHEXIDINE GLUCONATE 4% CLEANSER FOR DECOLONIZATION TP SCH (21:49)
[2017-11-30] MEDS: methylPREDNISolone NA SUCC 40 MG/1 ML VIAL IVPUSH SCH ×3 (02:00→17:30)
[2017-11-30] MEDS: HEPARIN NA (PORCINE) 5,000 UNITS/ML 1ML VIAL SQ SCH ×3 (06:10→21:53)
[2017-11-30] MEDS: INSULIN SLIDING SCALE (NOVOLOG) 1 VIAL SQ SCH ×3 (06:11→16:41)
[2017-11-30 06:35] LABS: HEMATOCRIT 43.3 % (35.4-49); HEMOGLOBIN 13.6 GM/dL (11.7-16.9); MCH 29.7 pg (25.7-33.7); MCHC 31.3 g/dl (32.0-35.9); MEAN CELL VOLUME 94.9 fl (80-96); MEAN PLT VOLUME 9.5 fl (7.5-11.1); PLATELET COUNT 137 K/MM3 (134-434); RBC 4.56 M/mm3 (4.00-5.60); WHITE BLOOD COUNT 12.7 K/mm3 (4.0-10.0)
[2017-11-30 06:59] LABS: ANION GAP 2 MMOL/L (8-16); CALCIUM 9.2 mg/dL (8.5-10.1); CHLORIDE 111 mmol/L (98-107); CO2 42 mmol/L (21-32); CREATININE 1.7 mg/dL (0.55-1.3); GLUCOSE,RANDOM 257 mg/dL (74-106); POTASSIUM 4.7 mmol/L (3.5-5.1); SODIUM 155 mmol/L (136-145)
[2017-11-30] MEDS: TAMSULOSIN HCL 0.4 MG CAP PO SCH (08:20)
[2017-11-30 08:36] LABS: BLOOD UREA NITROGEN 121 mg/dL (7-18)
[2017-11-30] MEDS: POLYETHYLENE GLYCOL 3350 119 GM BTL NGT SCH (09:06)
[2017-11-30] MEDS: MUPIROCIN 2% TOPICAL OINTMENT FOR DECOLONIZATION NS SCH (09:06)
[2017-11-30] MEDS ORDERED: fentaNYL CITRATE 250 MCG/5 ML VIAL ONE ×2 (11:05→18:31)
[2017-11-30] MEDS: FENTANYL INJECTION 500 MCG in DEXTROSE 5%-WATER - 90 ML IVPB SCH ×2 (11:28→18:39)
[2017-11-30 11:54] LABS: ARTERIAL BLOOD GAS BASE EXCESS 12.3 meq/l (-2-2); ARTERIAL BLOOD GAS PO2 64.2 mmHg (80-100); ARTERIAL BLOOD GAS pH 7.38 (7.35-7.45)
[2017-11-30 11:55] LABS: ALLENS TEST POSITIVE
[2017-11-30 11:59] LABS: ARTERIAL BLOOD GAS PCO2 70.4 mmHg (35-45)
--- NOTE | 2017-11-30 12:54 | PN ---
Teaching Attending Note Name of Resident: James Vasquez ATTENDING PHYSICIAN STATEMENT I saw and evaluated the patient. I reviewed the resident's note and discussed the case with the resident. I agree with the resident's findings and plan as documented. SUBJECTIVE: Pt seen and examined in the ICU. Remains intubated, sedated on dopamine gtt. Vented on volume assist control with 50% FiO2, PEEP 8. OBJECTIVE: Vital Signs Period Temp Pulse Resp BP Sys/Paul Pulse Ox Last 24 Hr 97.8 F-99.7 F 72-111 25-28 83-113/34-84 91-100 Intake & Output 11/27/17 11/28/17 11/29/17 11/30/17 23:59 23:59 23:59 23:59 Intake Total 1187.0 968.8 2090 900 Output Total 2700 2000 2600 600 Balance -1513.0 -1031.2 -510 300 Weight 78.608 kg 76.232 kg 76.232 kg 76.612 kg Gen: intubated, sedated Heart: tachycardic, regular Lung: bilateral rhonchi Abd: soft, nontender Ext: no edema CBC, BMP 11/30/17 05:30 11/30/17 05:30 Active Medications Acetaminophen (Tylenol -) 650 mg PO Q6H PRN PRN Reason: PAIN OR FEVER Chlorhexidine Gluconate (Hibiclens For Decolonization -) 1 applic TP HS [facility] Last Admin: 11/29/17 21:49 Dose: 1 applic Heparin Sodium (Porcine) (Heparin -) 5,000 unit SQ TID [facility] Last Admin: 11/30/17 06:10 Dose: 5,000 unit Propofol (Diprivan -) 1,000,000 mcg in 100 mls @ 4.79 mls/hr IVPB TITR [facility]; Protocol Last Titration: 11/30/17 07:30 Dose: 6 mcg/kg/min, 2.874 mls/hr Dopamine HCl/Dextrose (Dopamine 400 Mg/D5w -) 400,000 mcg in 250 mls @ 14.969 mls/hr IVPB TITR [facility]; Protocol Last Admin: 11/29/17 21:48 Dose: Not Given Fentanyl 500 mcg/ Dextrose 100 mls @ 20 mls/hr IVPB TITR [facility]; Protocol Last Admin: 11/30/17 11:28 Dose: 75 mcg/hr, 15 mls/hr Insulin Aspart (Novolog Vial Sliding Scale -) 1 vial SQ ACHS [facility]; Protocol Last Admin: 11/30/17 11:27 Dose: 10 units Methylprednisolone Sodium Succinate (Solu-Medrol -) 40 mg IVPUSH Q8H-IV [facility] Last Admin: 11/30/17 09:05 Dose: 40 mg Midazolam HCl (Versed -) 2 mg IVPUSH Q4H PRN PRN Reason: AGITATION Mupirocin (Bactroban Ointment (For Decolonization) -) 1 applic NS BID [facility] Stop: 12/04/17 21:59 Last Admin: 11/30/17 09:06 Dose: 1 applic Polyethylene Glycol (Miralax (For Daily Use) -) 17 gm NGT DAILY [facility] Last Admin: 11/30/17 09:06 Dose: 17 gm Tamsulosin HCl (Flomax -) 0.4 mg PO DAILY@0830 [facility] Last Admin: 11/30/17 08:20 Dose: 0.4 mg ASSESSMENT AND PLAN: Acute on Chronic Hypoxic and Hypercapneic Respiratory Failure Pneumonia Septic Shock Volume Overload Interstitial Lung Disease HTN DM BPH - would start antibiotics given respiratory decompensation and pt in shock - send sputum culture - titrate pressors to maintain MAP >65 - monitor urine output, creatinine - monitor CXR - continue medrol - inhaled bronchodilators - sedate for vent synchrony - continue volume assist control - taper Fio2 to keep Spo2 >88% - low tidal volume ventilation 6cc/kg/IBW - monitor Ppeak, Plat - enteral feeds - DVT/GI prophylaxis - continue ICU monitoring critical care time spent in reviewing chart, evaluating patient and formulating plan 35 min
--- NOTE | 2017-11-30 13:17 | PN ---
Physical Exam: SUBJECTIVE: Patient seen and examined. No acute events overnight. Pt. weaned off Versed and placed on Propofol and Fentanyl. No acute events overnight. Pt. has not had a BM. Pt. spiked temperature to 100.0. Nurse report foul-smelling sputum. Sputum Cx. to be sent. OBJECTIVE: Vital Signs Period Temp Pulse Resp BP Sys/Paul Pulse Ox Last 24 Hr 97.8 F-99.7 F 72-111 25-28 83-113/34-84 90-100 GENERAL: The patient is sedated, arousable to tactile stimuli EYES: PERRL, extraocular movements intact, sclera anicteric, conjunctiva clear. No ptosis. ENT: Ears normal, nares patent, dry mucous membranes. LUNGS: Mechanical ventilation, diffuse lung crackles, no accessory muscle use. HEART: Regular rate and rhythm, S1, S2 without murmur ABDOMEN: Soft, nontender, nondistended, normoactive bowel sounds, no guarding, no rebound EXTREMITIES: 2+ dorsal pedal pulses, 1+ radial pulse, warm, well-perfused, no edema. SKIN: Warm, dry, normal turgor Laboratory Results - last 24 hr 11/29/17 11/29/17 11/29/17 06:11 11:39 16:21 WBC RBC Hgb Hct MCV MCH MCHC RDW Plt Count MPV Puncture Site ABG pH ABG pCO2 at Pt Temp ABG pO2 at Pt Temp ABG HCO3 ABG O2 Sat (Measured) ABG O2 Content ABG Base Excess Bassem Test Oxygen Flow Rate Sodium Potassium Chloride Carbon Dioxide Anion Gap BUN Creatinine Creat Clearance w eGFR POC Glucometer 283.87856 324.15047 320.15106 Random Glucose Calcium 11/29/17 11/30/17 11/30/17 21:47 05:30 05:30 WBC 12.7 H RBC 4.56 Hgb 13.6 Hct 43.3 MCV 94.9 MCH 29.7 MCHC 31.3 L RDW 16.0 H Plt Count 137 MPV 9.5 Puncture Site ABG pH ABG pCO2 at Pt Temp ABG pO2 at Pt Temp ABG HCO3 ABG O2 Sat (Measured) ABG O2 Content ABG Base Excess Bassem Test Oxygen Flow Rate Sodium 155 H Potassium 4.7 Chloride 111 H Carbon Dioxide 42 H Anion Gap 2 L BUN 121 H* Creatinine 1.7 H Creat Clearance w eGFR 40.16 POC Glucometer [phone] Random Glucose 257 H Calcium 9.2 11/30/17 11/30/17 11/30/17 05:38 11:21 11:50 WBC RBC Hgb Hct MCV MCH MCHC RDW Plt Count MPV Puncture Site Right radial ABG pH 7.38 ABG pCO2 at Pt Temp 70.4 H* ABG pO2 at Pt Temp 64.2 L D ABG HCO3 40.4 H* ABG O2 Sat (Measured) 90.0 ABG O2 Content 16.8 ABG Base Excess 12.3 H Bassem Test Positive Oxygen Flow Rate Yes Sodium Potassium Chloride Carbon Dioxide Anion Gap BUN Creatinine Creat Clearance w eGFR POC Glucometer 270.33753 337.13577 Random Glucose Calcium Active Medications Current Medications Acetaminophen (Tylenol -) 650 mg PO Q6H PRN PRN Reason: PAIN OR FEVER Chlorhexidine Gluconate (Hibiclens For Decolonization -) 1 applic TP HS [facility] Last Admin: 11/29/17 21:49 Dose: 1 applic Heparin Sodium (Porcine) (Heparin -) 5,000 unit SQ TID [facility] Last Admin: 11/30/17 06:10 Dose: 5,000 unit Propofol (Diprivan -) 1,000,000 mcg in 100 mls @ 4.79 mls/hr IVPB TITR [facility]; Protocol Last Titration: 11/30/17 07:30 Dose: 6 mcg/kg/min, 2.874 mls/hr Dopamine HCl/Dextrose (Dopamine 400 Mg/D5w -) 400,000 mcg in 250 mls @ 14.969 mls/hr IVPB TITR [facility]; Protocol Last Admin: 11/29/17 21:48 Dose: Not Given Fentanyl 500 mcg/ Dextrose 100 mls @ 20 mls/hr IVPB TITR [facility]; Protocol Last Admin: 11/30/17 11:28 Dose: 75 mcg/hr, 15 mls/hr Piperacillin Sod/Tazobactam (Sod 3.375 gm/ Dextrose) 50 mls @ 100 mls/hr IVPB Q6H-IV [facility]; Protocol Insulin Aspart (Novolog Vial Sliding Scale -) 1 vial SQ ACHS [facility]; Protocol Last Admin: 11/30/17 11:27 Dose: 10 units Methylprednisolone Sodium Succinate (Solu-Medrol -) 40 mg IVPUSH Q8H-IV [facility] Last Admin: 11/30/17 09:05 Dose: 40 mg Midazolam HCl (Versed -) 2 mg IVPUSH Q4H PRN PRN Reason: AGITATION Mupirocin (Bactroban Ointment (For Decolonization) -) 1 applic NS BID [facility] Stop: 12/04/17 21:59 Last Admin: 11/30/17 09:06 Dose: 1 applic Polyethylene Glycol (Miralax (For Daily Use) -) 17 gm NGT DAILY [facility] Last Admin: 11/30/17 09:06 Dose: 17 gm Tamsulosin HCl (Flomax -) 0.4 mg PO DAILY@0830 [facility] Last Admin: 11/30/17 08:20 Dose: 0.4 mg ASSESSMENT/PLAN: A 67 y.o. M w/ PMHx. ILD, chronic hypoxic respiratory failure (on 2L NC at home) , recurrent PNA, SLE/lupus, HTN, DM2, BPH, presents to the ICU with acute hypoxic respiratory failure 2/2 PNA and hypervolemia. #Pulmonology -Acute hypoxic respiratory failure 2/2 PNA and hypervolemia Hold Lasix 40mg BID monitor Cr. Restarted Zosyn d/t hypotension and elevated white count. F/u Sputum Cx. If continuing to spike temperatures will start Vancomycin for MRSA empirically. Pt. currently intubated on dopamine 4mcg, Propofol 6mcg and Fentanyl 75mcg. Will try to wean off dopamine. D/C-ed Versed c/w Solu-medrol 40mg Q8H c/w Duonebs c/w ventolin Neb #Gastroenterology -Constipation c/w Miralax consider giving Reglan -Diverticulosis -stable monitor for bleeding and worsening abdominal pain monitor stool for constipation #Infectious Disease -Sepsis 2/2 PNA -resolved D/c Zosyn #Cardiology -HTN c/w Losartan 100mg, Norvasc, 10mg and Metoprolol 100mg #Urology -BPH c/w Flomax #Endocrinology -DM2 ISS BGM #F/E/N -D/C IVF, restrict fluids -monitor electrolytes and replete as needed -Glucerna 1.5 tube feeds -D/C Lasix #PPx. -DVT Lovenox SQ Visit type - Emergency Visit Emergency Visit: Yes ED Registration Date: 10/01/18 Care time: The patient presented to the Emergency Department on the above date and was hospitalized for further evaluation of their emergent condition. - New Patient This patient is new to me today: No - Critical Care Critical Care patient: Yes Total Critical Care Time (in minutes): 40 Critical Care Statement: The care of this patient involved high complexity decision making to prevent further life threatening deterioration of the patient 's condition and/or to evaluate & treat vital organ system(s) failure or risk of failure. - Discharge Referral Referred to [facility] Med P.C.: No
[2017-11-30] MEDS: MIDAZOLAM HCL 2 MG/2 ML SINGLE DOSE VIAL IVPUSH PRN ×2 (14:05→18:06)
[2017-11-30] MEDS ORDERED: DEXTROSE 5%-WATER - 50 ML IVPB ONE ×2 (15:04→21:51)
[2017-11-30] MEDS ORDERED: PIPERACILLIN/TAZOBACTAM 3.375 GM VIAL IVPB ONE ×2 (15:04→21:51)
--- NOTE | 2017-11-30 15:09 | PN ---
Progress Note, Physician History of Present Illness: patient continues to be intubated and sedated requiring higher oxygen requirement increased sputum production fever - Current Medication List Current Medications: Active Medications Acetaminophen (Tylenol -) 650 mg PO Q6H PRN PRN Reason: PAIN OR FEVER Chlorhexidine Gluconate (Hibiclens For Decolonization -) 1 applic TP HS [facility] Last Admin: 11/29/17 21:49 Dose: 1 applic Heparin Sodium (Porcine) (Heparin -) 5,000 unit SQ TID [facility] Last Admin: 11/30/17 14:09 Dose: 5,000 unit Propofol (Diprivan -) 1,000,000 mcg in 100 mls @ 4.79 mls/hr IVPB TITR [facility]; Protocol Last Titration: 11/30/17 07:30 Dose: 6 mcg/kg/min, 2.874 mls/hr Dopamine HCl/Dextrose (Dopamine 400 Mg/D5w -) 400,000 mcg in 250 mls @ 14.969 mls/hr IVPB TITR [facility]; Protocol Last Titration: 11/30/17 13:39 Dose: 2 mcg/kg/min, 5.987 mls/hr Fentanyl 500 mcg/ Dextrose 100 mls @ 20 mls/hr IVPB TITR [facility]; Protocol Last Admin: 11/30/17 11:28 Dose: 75 mcg/hr, 15 mls/hr Piperacillin Sod/Tazobactam (Sod 3.375 gm/ Dextrose) 50 mls @ 100 mls/hr IVPB Q6H-IV [facility]; Protocol Insulin Aspart (Novolog Vial Sliding Scale -) 1 vial SQ ACHS [facility]; Protocol Last Admin: 11/30/17 11:27 Dose: 10 units Methylprednisolone Sodium Succinate (Solu-Medrol -) 40 mg IVPUSH Q8H-IV [facility] Last Admin: 11/30/17 09:05 Dose: 40 mg Midazolam HCl (Versed -) 2 mg IVPUSH Q4H PRN PRN Reason: AGITATION Last Admin: 11/30/17 14:05 Dose: 2 mg Mupirocin (Bactroban Ointment (For Decolonization) -) 1 applic NS BID [facility] Stop: 12/04/17 21:59 Last Admin: 11/30/17 09:06 Dose: 1 applic Polyethylene Glycol (Miralax (For Daily Use) -) 17 gm NGT DAILY [facility] Last Admin: 11/30/17 09:06 Dose: 17 gm Tamsulosin HCl (Flomax -) 0.4 mg PO DAILY@0830 [facility] Last Admin: 11/30/17 08:20 Dose: 0.4 mg - Objective Vital Signs: Vital Signs Temperature 100 F H 11/30/17 13:00 Pulse Rate 120 H 11/30/17 13:39 Respiratory Rate 28 H 11/30/17 13:30 Blood Pressure 110/65 11/30/17 13:39 O2 Sat by Pulse Oximetry (%) 90 L 11/30/17 12:30 Constitutional: Yes: Other Cardiovascular: Yes: Regular Rate and Rhythm Respiratory: Yes: Intubated, Mechanically Ventilated, Other Gastrointestinal: Yes: Normal Bowel Sounds, Soft Musculoskeletal: Yes: WNL Extremities: Yes: WNL Neurological: Yes: Other Labs: CBC, BMP 11/30/17 05:30 11/30/17 05:30 INR, PTT INR 1.11 (0.83-1.09) H 11/21/17 11:26 Assessment/Plan Respiratory Failure Pneumonia Sepsis Interstitial Lung Disease HTN DM BPH plan continue current management zosyn resp support rest as per icu close monitoring intubated vented send sputum cx cc 38 min
[2017-11-30] MEDS: PIPERACILLIN/TAZOB 3.375 GM 3.375 GM in DEXTROSE 5%-WATER - 50 ML IVPB SCH ×2 (15:10→21:53)
--- NOTE | 2017-11-30 16:12 | PN ---
Progress Note, Physician History of Present Illness: Currently sedated on low-dose dopamine gtt. - Current Medication List Current Medications: Active Medications Acetaminophen (Tylenol -) 650 mg PO Q6H PRN PRN Reason: PAIN OR FEVER Chlorhexidine Gluconate (Hibiclens For Decolonization -) 1 applic TP HS [facility] Last Admin: 11/29/17 21:49 Dose: 1 applic Heparin Sodium (Porcine) (Heparin -) 5,000 unit SQ TID [facility] Last Admin: 11/30/17 14:09 Dose: 5,000 unit Propofol (Diprivan -) 1,000,000 mcg in 100 mls @ 4.79 mls/hr IVPB TITR [facility]; Protocol Last Titration: 11/30/17 07:30 Dose: 6 mcg/kg/min, 2.874 mls/hr Dopamine HCl/Dextrose (Dopamine 400 Mg/D5w -) 400,000 mcg in 250 mls @ 14.969 mls/hr IVPB TITR [facility]; Protocol Last Titration: 11/30/17 13:39 Dose: 2 mcg/kg/min, 5.987 mls/hr Fentanyl 500 mcg/ Dextrose 100 mls @ 20 mls/hr IVPB TITR [facility]; Protocol Last Admin: 11/30/17 11:28 Dose: 75 mcg/hr, 15 mls/hr Piperacillin Sod/Tazobactam (Sod 3.375 gm/ Dextrose) 50 mls @ 100 mls/hr IVPB Q6H-IV [facility]; Protocol Last Admin: 11/30/17 15:10 Dose: 100 mls/hr Insulin Aspart (Novolog Vial Sliding Scale -) 1 vial SQ ACHS [facility]; Protocol Last Admin: 11/30/17 11:27 Dose: 10 units Methylprednisolone Sodium Succinate (Solu-Medrol -) 40 mg IVPUSH Q8H-IV [facility] Last Admin: 11/30/17 09:05 Dose: 40 mg Metoclopramide HCl (Reglan Oral Solution -) 10 mg PO ACHS [facility] Midazolam HCl (Versed -) 2 mg IVPUSH Q4H PRN PRN Reason: AGITATION Last Admin: 11/30/17 14:05 Dose: 2 mg Mupirocin (Bactroban Ointment (For Decolonization) -) 1 applic NS BID [facility] Stop: 12/04/17 21:59 Last Admin: 11/30/17 09:06 Dose: 1 applic Polyethylene Glycol (Miralax (For Daily Use) -) 17 gm NGT DAILY [facility] Last Admin: 11/30/17 09:06 Dose: 17 gm Tamsulosin HCl (Flomax -) 0.4 mg PO DAILY@0830 [facility] Last Admin: 11/30/17 08:20 Dose: 0.4 mg - Objective Vital Signs: Vital Signs Temperature 100 F H 11/30/17 13:00 Pulse Rate 119 H 11/30/17 15:00 Respiratory Rate 28 H 11/30/17 15:00 Blood Pressure 100/63 11/30/17 15:00 O2 Sat by Pulse Oximetry (%) 90 L 11/30/17 12:30 Cardiovascular: Yes: Tachycardia Respiratory: Yes: Intubated, Mechanically Ventilated Gastrointestinal: Yes: Normal Bowel Sounds, Soft Edema: No Labs: CBC, BMP 11/30/17 05:30 11/30/17 05:30 INR, PTT INR 1.11 (0.83-1.09) H 11/21/17 11:26 - ....Imaging EKG: Report Reviewed (Tele: ST) Problem List - Problems (1) Hypertension Code(s): I10 - ESSENTIAL (PRIMARY) HYPERTENSION Qualifiers: Hypertension type: essential hypertension Qualified Code(s): I10 - Essential (primary) hypertension (2) Old myocardial infarction Code(s): I25.2 - OLD MYOCARDIAL INFARCTION (3) Acute and chronic respiratory failure with hypoxia Code(s): J96.21 - ACUTE AND CHRONIC RESPIRATORY FAILURE WITH HYPOXIA (4) CKD (chronic kidney disease) Code(s): N18.9 - CHRONIC KIDNEY DISEASE, UNSPECIFIED Qualifiers: Chronic kidney disease stage: stage 2 (mild) Qualified Code(s): N18.2 - Chronic kidney disease, stage 2 (mild) (5) Pneumonia Code(s): J18.9 - PNEUMONIA, UNSPECIFIED ORGANISM Qualifiers: Lung location: unspecified part of lung (6) SLE (systemic lupus erythematosus) Code(s): M32.9 - SYSTEMIC LUPUS ERYTHEMATOSUS, UNSPECIFIED Qualifiers: Systemic lupus erythematosus organ involvement: unspecified (7) Sepsis Code(s): A41.9 - SEPSIS, UNSPECIFIED ORGANISM Qualifiers: Sepsis type: sepsis due to unspecified organism Qualified Code(s): A41.9 - Sepsis, unspecified organism (8) Hypernatremia Code(s): E87.0 - HYPEROSMOLALITY AND HYPERNATREMIA Assessment/Plan 09/09/2017 Echo: Normal LV size and fxn, normal RV size and fxn, mild AR, MR, TR RVSP 30-40 mmHg 11/02/2017 Myoview: Moderate inferoapical infarct with vandana-infarct ischemia , LVEF 57% 1. Acute on Chronic Hypoxic and hypercapneic Respiratory Failure 2. Pneumonia 3. Septic shock 4. Interstitial Lung Disease 5. Acute on chronic diastolic heart failure improved 6. Acute on CKD due to hypotension and renal hypoperfusion improving 7. CAD post PR with abnormal MPI 8. HTN 9. DM 10. BPH 11. Hypernatremia PLAN: 1. Free water flushes to correct free water deficit 2. Wean dopamine gtt to maintain MAP>65 mmHg 3. Resume ARB and beta charles as hemodynamics tolerate once off of pressors and renal fxn stabilizes 4. Empiric abx course, bronchodilators and IV steroids as per pulmonary service 5. Ventilator wean as tolerated, enteral feeds, DVT/GI prophylaxis
[2017-11-30] MEDS ORDERED: INSULIN (NOVOLOG) ASPART 100 UNITS/ML 10ML VIAL ONE (16:34)
[2017-11-30] MEDS: ACETAMINOPHEN 325 MG TABLET (FP) PO PRN (17:29)
--- NOTE | 2017-11-30 17:59 | PN ---
Progress Note, Physician History of Present Illness: intubated - Current Medication List Current Medications: Active Medications Acetaminophen (Tylenol -) 650 mg PO Q6H PRN PRN Reason: PAIN OR FEVER Last Admin: 11/30/17 17:29 Dose: 650 mg Chlorhexidine Gluconate (Hibiclens For Decolonization -) 1 applic TP HS [facility] Last Admin: 11/29/17 21:49 Dose: 1 applic Heparin Sodium (Porcine) (Heparin -) 5,000 unit SQ TID [facility] Last Admin: 11/30/17 14:09 Dose: 5,000 unit Propofol (Diprivan -) 1,000,000 mcg in 100 mls @ 4.79 mls/hr IVPB TITR [facility]; Protocol Last Titration: 11/30/17 07:30 Dose: 6 mcg/kg/min, 2.874 mls/hr Dopamine HCl/Dextrose (Dopamine 400 Mg/D5w -) 400,000 mcg in 250 mls @ 14.969 mls/hr IVPB TITR [facility]; Protocol Last Titration: 11/30/17 13:39 Dose: 2 mcg/kg/min, 5.987 mls/hr Fentanyl 500 mcg/ Dextrose 100 mls @ 20 mls/hr IVPB TITR [facility]; Protocol Last Admin: 11/30/17 11:28 Dose: 75 mcg/hr, 15 mls/hr Piperacillin Sod/Tazobactam (Sod 3.375 gm/ Dextrose) 50 mls @ 100 mls/hr IVPB Q6H-IV [facility]; Protocol Last Admin: 11/30/17 15:10 Dose: 100 mls/hr Insulin Aspart (Novolog Vial Sliding Scale -) 1 vial SQ ACHS [facility]; Protocol Last Admin: 11/30/17 16:41 Dose: 10 units Methylprednisolone Sodium Succinate (Solu-Medrol -) 40 mg IVPUSH Q8H-IV [facility] Last Admin: 11/30/17 17:30 Dose: 40 mg Metoclopramide HCl (Reglan Oral Solution -) 10 mg PO ACHS [facility] Midazolam HCl (Versed -) 2 mg IVPUSH Q4H PRN PRN Reason: AGITATION Last Admin: 11/30/17 14:05 Dose: 2 mg Mupirocin (Bactroban Ointment (For Decolonization) -) 1 applic NS BID [facility] Stop: 12/04/17 21:59 Last Admin: 11/30/17 09:06 Dose: 1 applic Polyethylene Glycol (Miralax (For Daily Use) -) 17 gm NGT DAILY [facility] Last Admin: 11/30/17 09:06 Dose: 17 gm Tamsulosin HCl (Flomax -) 0.4 mg PO DAILY@0830 [facility] Last Admin: 11/30/17 08:20 Dose: 0.4 mg - Objective Vital Signs: Vital Signs Temperature 100 F H 11/30/17 13:00 Pulse Rate 118 H 11/30/17 17:00 Respiratory Rate 32 H 11/30/17 17:00 Blood Pressure 106/61 11/30/17 17:00 O2 Sat by Pulse Oximetry (%) 94 L 11/30/17 16:06 Constitutional: Yes: No Distress HENT: Yes: Atraumatic Neck: Yes: Supple Cardiovascular: Yes: Regular Rate and Rhythm Respiratory: Yes: Rhonchi Gastrointestinal: Yes: Normal Bowel Sounds Extremities: Yes: WNL Edema: No Edema: LLE: Trace, RLE: Trace Peripheral Pulses WNL: Yes Neurological: Yes: Alert, Oriented Labs: CBC, BMP 11/30/17 05:30 11/30/17 05:30 INR, PTT INR 1.11 (0.83-1.09) H 11/21/17 11:26 Problem List - Problems (1) Acute respiratory failure with hypoxia Assessment/Plan: intubated sedated Code(s): J96.01 - ACUTE RESPIRATORY FAILURE WITH HYPOXIA (2) Pneumonia Assessment/Plan: on iv abx duo nebs Code(s): J18.9 - PNEUMONIA, UNSPECIFIED ORGANISM Qualifiers: Lung location: unspecified part of lung (3) SLE (systemic lupus erythematosus) Code(s): M32.9 - SYSTEMIC LUPUS ERYTHEMATOSUS, UNSPECIFIED Qualifiers: Systemic lupus erythematosus organ involvement: unspecified (4) Sepsis Assessment/Plan: on iv abx ivf if needed bcxs and u cxs noted Code(s): A41.9 - SEPSIS, UNSPECIFIED ORGANISM Qualifiers: Sepsis type: sepsis due to unspecified organism Qualified Code(s): A41.9 - Sepsis, unspecified organism Assessment/Plan icu cc time 30 min
[2017-11-30] MEDS: PROPOFOL 1,000,000 MCG/100 ML VIAL IVPB SCH (18:01)
[2017-11-30] MEDS ORDERED: PT OWN MED DRAWER 7, Y5N ONE (19:45)
[2017-11-30] MEDS: METOCLOPRAMIDE HCL 5 MG/5 ML UNIT DOSE CUP PO SCH (21:54)
[2017-12-01] MEDS ORDERED: PT OWN MED DRAWER 7, Y5N ONE (00:40)
[2017-12-01] MEDS: PROPOFOL 1,000,000 MCG/100 ML VIAL IVPB SCH ×2 (00:51→21:48)
[2017-12-01] MEDS: DOPAMINE 400 MG/D5W - 400,000 MCG/250 ML INFUS.BAG IVPB SCH ×2 (00:53→21:48)
[2017-12-01] MEDS: CHLORHEXIDINE GLUCONATE 4% CLEANSER FOR DECOLONIZATION TP SCH ×2 (00:54→21:34)
[2017-12-01] MEDS: FENTANYL INJECTION 500 MCG in DEXTROSE 5%-WATER - 90 ML IVPB SCH ×3 (00:55→23:59)
[2017-12-01] MEDS: INSULIN SLIDING SCALE (NOVOLOG) 1 VIAL SQ SCH ×5 (01:01→21:44)
[2017-12-01] MEDS: MUPIROCIN 2% TOPICAL OINTMENT FOR DECOLONIZATION NS SCH ×3 (01:03→21:48)
[2017-12-01] MEDS ORDERED: INSULIN (NOVOLOG) ASPART 100 UNITS/ML 10ML VIAL ONE (01:05)
[2017-12-01] MEDS ORDERED: fentaNYL CITRATE 250 MCG/5 ML VIAL ONE ×3 (03:06→18:49)
[2017-12-01] MEDS: methylPREDNISolone NA SUCC 40 MG/1 ML VIAL IVPUSH SCH ×3 (03:10→17:11)
[2017-12-01] MEDS ORDERED: PIPERACILLIN/TAZOBACTAM 3.375 GM VIAL IVPB ONE ×4 (03:19→21:33)
[2017-12-01] MEDS ORDERED: DEXTROSE 5%-WATER - 50 ML IVPB ONE ×4 (03:19→21:33)
[2017-12-01] MEDS: PIPERACILLIN/TAZOB 3.375 GM 3.375 GM in DEXTROSE 5%-WATER - 50 ML IVPB SCH ×4 (03:29→21:34)
[2017-12-01] MEDS: HEPARIN NA (PORCINE) 5,000 UNITS/ML 1ML VIAL SQ SCH ×3 (05:52→21:51)
[2017-12-01 06:09] LABS: HEMATOCRIT 39.3 % (35.4-49); HEMOGLOBIN 12.2 GM/dL (11.7-16.9); MCH 29.6 pg (25.7-33.7); MCHC 31.1 g/dl (32.0-35.9); MEAN CELL VOLUME 95.1 fl (80-96); MEAN PLT VOLUME 9.1 fl (7.5-11.1); PLATELET COUNT 105 K/MM3 (134-434); RBC 4.13 M/mm3 (4.00-5.60); RDW 15.9 % (11.9-15.9); WHITE BLOOD COUNT 11.3 K/mm3 (4.0-10.0)
[2017-12-01 06:31] LABS: ALBUMIN 2.1 g/dl (3.4-5.0); ALK PHOS 58 U/L (45-117); ANION GAP 6 MMOL/L (8-16); BILIRUBIN,TOTAL 0.4 mg/dL (0.2-1); CALCIUM 8.8 mg/dL (8.5-10.1); CHLORIDE 112 mmol/L (98-107); CO2 39 mmol/L (21-32); CREATININE 2.4 mg/dL (0.55-1.3); GLUCOSE,RANDOM 252 mg/dL (74-106); MAGNESIUM 3.5 mg/dL (1.8-2.4); PHOSPHOROUS 4.2 mg/dL (2.5-4.9); POTASSIUM 5.1 mmol/L (3.5-5.1); SGOT/AST 15 U/L (15-37); SGPT/ALT 28 U/L (13-61); SODIUM 157 mmol/L (136-145); TOT PROT 5.3 g/dl (6.4-8.2)
[2017-12-01 06:54] LABS: BLOOD UREA NITROGEN 156 mg/dL (7-18)
[2017-12-01] MEDS: TAMSULOSIN HCL 0.4 MG CAP PO SCH (09:50)
[2017-12-01] MEDS: POLYETHYLENE GLYCOL 3350 119 GM BTL NGT SCH ×2 (09:51→21:40)
--- NOTE | 2017-12-01 12:02 | PN ---
Progress Note, Physician History of Present Illness: Remains sedated on ventilator, weaned off low-dose dopamine gtt this AM. - Current Medication List Current Medications: Active Medications Acetaminophen (Tylenol -) 650 mg PO Q6H PRN PRN Reason: PAIN OR FEVER Last Admin: 11/30/17 17:29 Dose: 650 mg Chlorhexidine Gluconate (Hibiclens For Decolonization -) 1 applic TP HS [facility] Last Admin: 12/01/17 00:54 Dose: 1 applic Heparin Sodium (Porcine) (Heparin -) 5,000 unit SQ TID [facility] Last Admin: 12/01/17 05:52 Dose: 5,000 unit Propofol (Diprivan -) 1,000,000 mcg in 100 mls @ 4.79 mls/hr IVPB TITR [facility]; Protocol Last Admin: 12/01/17 00:51 Dose: 25 mcg/kg/min, 11.975 mls/hr Dopamine HCl/Dextrose (Dopamine 400 Mg/D5w -) 400,000 mcg in 250 mls @ 14.969 mls/hr IVPB TITR [facility]; Protocol Last Admin: 12/01/17 00:53 Dose: 2 mcg/kg/min, 5.987 mls/hr Fentanyl 500 mcg/ Dextrose 100 mls @ 20 mls/hr IVPB TITR [facility]; Protocol Last Admin: 12/01/17 11:09 Dose: 75 mcg/hr, 15 mls/hr Piperacillin Sod/Tazobactam (Sod 3.375 gm/ Dextrose) 50 mls @ 100 mls/hr IVPB Q6H-IV [facility]; Protocol Last Admin: 12/01/17 09:50 Dose: 100 mls/hr Insulin Aspart (Novolog Vial Sliding Scale -) 1 vial SQ ACHS [facility]; Protocol Last Admin: 12/01/17 11:57 Dose: 8 units Methylprednisolone Sodium Succinate (Solu-Medrol -) 40 mg IVPUSH Q8H-IV [facility] Last Admin: 12/01/17 09:50 Dose: 40 mg Midazolam HCl (Versed -) 2 mg IVPUSH Q4H PRN PRN Reason: AGITATION Last Admin: 11/30/17 18:06 Dose: 2 mg Mupirocin (Bactroban Ointment (For Decolonization) -) 1 applic NS BID [facility] Stop: 12/04/17 21:59 Last Admin: 12/01/17 09:52 Dose: 1 applic Polyethylene Glycol (Miralax (For Daily Use) -) 17 gm NGT BID [facility] Last Admin: 12/01/17 09:51 Dose: 17 grams Senna (Senna Oral Solution -) 8.8 mg PO HS [facility] Tamsulosin HCl (Flomax -) 0.4 mg PO DAILY@0830 [facility] Last Admin: 12/01/17 09:50 Dose: 0.4 mg - Objective Vital Signs: Vital Signs Temperature 98.8 F 12/01/17 10:00 Pulse Rate 83 12/01/17 10:00 Respiratory Rate 28 H 12/01/17 10:56 Blood Pressure 89/56 L 12/01/17 10:00 O2 Sat by Pulse Oximetry (%) 98 12/01/17 10:00 Constitutional: Yes: No Distress, Calm Neck: Yes: Supple Cardiovascular: Yes: Regular Rate and Rhythm Respiratory: Yes: Intubated, Mechanically Ventilated, Rales Gastrointestinal: Yes: Normal Bowel Sounds, Soft Edema: No Labs: CBC, BMP 12/01/17 05:30 12/01/17 05:30 INR, PTT INR 1.11 (0.83-1.09) H 11/21/17 11:26 - ....Imaging Chest X-ray: Report Reviewed (Chronic infiltrative changes) EKG: Report Reviewed (Tele: NSR) Problem List - Problems (1) Hypertension Code(s): I10 - ESSENTIAL (PRIMARY) HYPERTENSION Qualifiers: Hypertension type: essential hypertension Qualified Code(s): I10 - Essential (primary) hypertension (2) Old myocardial infarction Code(s): I25.2 - OLD MYOCARDIAL INFARCTION (3) Acute and chronic respiratory failure with hypoxia Code(s): J96.21 - ACUTE AND CHRONIC RESPIRATORY FAILURE WITH HYPOXIA (4) CKD (chronic kidney disease) Code(s): N18.9 - CHRONIC KIDNEY DISEASE, UNSPECIFIED Qualifiers: Chronic kidney disease stage: stage 2 (mild) Qualified Code(s): N18.2 - Chronic kidney disease, stage 2 (mild) (5) Pneumonia Code(s): J18.9 - PNEUMONIA, UNSPECIFIED ORGANISM Qualifiers: Lung location: unspecified part of lung (6) SLE (systemic lupus erythematosus) Code(s): M32.9 - SYSTEMIC LUPUS ERYTHEMATOSUS, UNSPECIFIED Qualifiers: Systemic lupus erythematosus organ involvement: unspecified (7) Sepsis Code(s): A41.9 - SEPSIS, UNSPECIFIED ORGANISM Qualifiers: Sepsis type: sepsis due to unspecified organism Qualified Code(s): A41.9 - Sepsis, unspecified organism (8) Hypernatremia Code(s): E87.0 - HYPEROSMOLALITY AND HYPERNATREMIA Assessment/Plan 09/09/2017 Echo: Normal LV size and fxn, normal RV size and fxn, mild AR, MR, TR RVSP 30-40 mmHg 11/02/2017 Myoview: Moderate inferoapical infarct with vandana-infarct ischemia , LVEF 57% 1. Acute on Chronic Hypoxic and hypercapneic Respiratory Failure 2. Pneumonia 3. Septic shock resolving 4. Interstitial Lung Disease 5. Acute on chronic diastolic heart failure euvolemic 6. Acute on CKD due to hypotension and renal hypoperfusion 7. CAD post CA with abnormal MPI 8. HTN 9. DM 10. BPH 11. Hypernatremia PLAN: 1. Free water flushes to correct free water deficit, judicious hydration and monitor renal recovery 2. Maintain off dopamine gtt to maintain MAP>65 mmHg 3. Resume ARB and beta charles as hemodynamics tolerate once off of pressors and renal fxn stabilizes 4. Empiric abx course, bronchodilators and IV steroids as per pulmonary service 5. Ventilator wean as tolerated, enteral feeds, DVT/GI prophylaxis
--- NOTE | 2017-12-01 12:44 | PN ---
Teaching Attending Note Name of Resident: James Vasquez ATTENDING PHYSICIAN STATEMENT I saw and evaluated the patient. I reviewed the resident's note and discussed the case with the resident. I agree with the resident's findings and plan as documented. SUBJECTIVE: Patient seen and examined in the ICU. Intubated on AC Mode of vent, 60% FiO2 and PEEP 8. No improvement in vent support. Currently off Dopamine. CXR: No gross change in bilateral interstitial markings Intake & Output 11/28/17 11/29/17 11/30/17 12/01/17 23:59 23:59 23:59 23:59 Intake Total 968.8 2090 2123 706.3 Output Total 1999 2600 1350 350 Balance -1031.2 -510 773 356.3 Weight 168 lb 1 oz 168 lb 1 oz 168 lb 14.4 oz 168 lb 4.8 oz Last Vital Signs Temp Pulse Resp BP Pulse Ox 98.8 F 83 28 H 89/56 L 98 12/01/17 10:00 12/01/17 10:00 12/01/17 10:56 12/01/17 10:00 12/01/17 10:00 Active Medications Acetaminophen (Tylenol -) 650 mg PO Q6H PRN PRN Reason: PAIN OR FEVER Last Admin: 11/30/17 17:29 Dose: 650 mg Chlorhexidine Gluconate (Hibiclens For Decolonization -) 1 applic TP HS [facility] Last Admin: 12/01/17 00:54 Dose: 1 applic Heparin Sodium (Porcine) (Heparin -) 5,000 unit SQ TID [facility] Last Admin: 12/01/17 05:52 Dose: 5,000 unit Propofol (Diprivan -) 1,000,000 mcg in 100 mls @ 4.79 mls/hr IVPB TITR [facility]; Protocol Last Admin: 12/01/17 00:51 Dose: 25 mcg/kg/min, 11.975 mls/hr Dopamine HCl/Dextrose (Dopamine 400 Mg/D5w -) 400,000 mcg in 250 mls @ 14.969 mls/hr IVPB TITR [facility]; Protocol Last Admin: 12/01/17 00:53 Dose: 2 mcg/kg/min, 5.987 mls/hr Fentanyl 500 mcg/ Dextrose 100 mls @ 20 mls/hr IVPB TITR [facility]; Protocol Last Admin: 12/01/17 11:09 Dose: 75 mcg/hr, 15 mls/hr Piperacillin Sod/Tazobactam (Sod 3.375 gm/ Dextrose) 50 mls @ 100 mls/hr IVPB Q6H-IV [facility]; Protocol Last Admin: 12/01/17 09:50 Dose: 100 mls/hr Insulin Aspart (Novolog Vial Sliding Scale -) 1 vial SQ ACHS [facility]; Protocol Last Admin: 12/01/17 11:57 Dose: 8 units Methylprednisolone Sodium Succinate (Solu-Medrol -) 40 mg IVPUSH Q8H-IV [facility] Last Admin: 12/01/17 09:50 Dose: 40 mg Midazolam HCl (Versed -) 2 mg IVPUSH Q4H PRN PRN Reason: AGITATION Last Admin: 11/30/17 18:06 Dose: 2 mg Mupirocin (Bactroban Ointment (For Decolonization) -) 1 applic NS BID [facility] Stop: 12/04/17 21:59 Last Admin: 12/01/17 09:52 Dose: 1 applic Polyethylene Glycol (Miralax (For Daily Use) -) 17 gm NGT BID [facility] Last Admin: 12/01/17 09:51 Dose: 17 grams Senna (Senna Oral Solution -) 8.8 mg PO HS [facility] Tamsulosin HCl (Flomax -) 0.4 mg PO DAILY@0830 [facility] Last Admin: 12/01/17 09:50 Dose: 0.4 mg Gen: Intubated and sedated Heart: RRR Lung: Bilateral coarse crackles / rhonchi Abd: soft, nontender Ext: no edema Laboratory Results - last 24 hr 11/30/17 11/30/17 12/01/17 16:32 21:58 05:30 WBC 11.3 H RBC 4.13 Hgb 12.2 Hct 39.3 MCV 95.1 MCH 29.6 MCHC 31.1 L RDW 15.9 Plt Count 105 L D MPV 9.1 Sodium Potassium Chloride Carbon Dioxide Anion Gap BUN Creatinine Creat Clearance w eGFR POC Glucometer 349.45786 294.48099 Random Glucose Calcium Phosphorus Magnesium Total Bilirubin Direct Bilirubin AST ALT Alkaline Phosphatase Total Protein Albumin 12/01/17 12/01/17 12/01/17 05:30 05:30 06:57 WBC RBC Hgb Hct MCV MCH MCHC RDW Plt Count MPV Sodium 157 H Potassium 5.1 Chloride 112 H Carbon Dioxide 39 H Anion Gap 6 L BUN 156 H* Creatinine 2.4 H Creat Clearance w eGFR 26.98 POC Glucometer [phone] Random Glucose 252 H Calcium 8.8 Phosphorus 4.2 Magnesium 3.5 H Total Bilirubin 0.4 Direct Bilirubin 0.2 AST 15 ALT 28 Alkaline Phosphatase 58 Total Protein 5.3 L Albumin 2.1 L 12/01/17 11:55 WBC RBC Hgb Hct MCV MCH MCHC RDW Plt Count MPV Sodium Potassium Chloride Carbon Dioxide Anion Gap BUN Creatinine Creat Clearance w eGFR POC Glucometer [phone] Random Glucose Calcium Phosphorus Magnesium Total Bilirubin Direct Bilirubin AST ALT Alkaline Phosphatase Total Protein Albumin ASSESSMENT AND PLAN: Acute on Chronic Hypoxic Respiratory 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 - Continue ICU monitoring due to tenuous respiratory status Dr Javier Critical care time spent in reviewing chart, evaluating patient and formulating plan 35 min
--- NOTE | 2017-12-01 17:33 | PN ---
Physical Exam: SUBJECTIVE: Patient seen and examined. No acute events overnight. Pt. was successfully weaned off dopamine, on Propofol 25mcg, and Fentanyl 75mcg. Discussed with family about possible tracheostomy procedure next week along with the risks and benefits. Family still deciding at this time the Goals of care. Pt.s daughter and son are the primary decision makes though no formal HCP form has been documented in our chart as of yet. OBJECTIVE: Vital Signs Period Temp Pulse Resp BP Sys/Paul Pulse Ox Last 24 Hr 98 F-100.4 F 81-116 28-28 85-122/53-66 96-98 GENERAL: The patient is sedated, arousable to tactile stimulation HEAD: Normal with no signs of trauma. ENT: Ears normal, nares patent, dry mucous membranes. LUNGS: Mechanical ventilation, right-sided crackles, velcro-like sound, no wheezes HEART: Soft heart beat, regular rate and rhythm, S1, S2 ABDOMEN: Soft, nontender, nondistended, normoactive bowel sounds, no guarding, no rebound, no hepatosplenomegaly, no masses. EXTREMITIES: 2+ dorsal pedal pulses, warm, well-perfused, no edema, <2 sec. cap. refill SKIN: Warm, dry, normal turgor Laboratory Results - last 24 hr 11/30/17 12/01/17 12/01/17 21:58 01:01 05:30 WBC 11.3 H RBC 4.13 Hgb 12.2 Hct 39.3 MCV 95.1 MCH 29.6 MCHC 31.1 L RDW 15.9 Plt Count 105 L D MPV 9.1 Sodium Potassium Chloride Carbon Dioxide Anion Gap BUN Creatinine Creat Clearance w eGFR POC Glucometer 294.61431 345.69364 Random Glucose Calcium Phosphorus Magnesium Total Bilirubin Direct Bilirubin AST ALT Alkaline Phosphatase Total Protein Albumin 12/01/17 12/01/17 12/01/17 05:30 05:30 06:57 WBC RBC Hgb Hct MCV MCH MCHC RDW Plt Count MPV Sodium 157 H Potassium 5.1 Chloride 112 H Carbon Dioxide 39 H Anion Gap 6 L BUN 156 H* Creatinine 2.4 H Creat Clearance w eGFR 26.98 POC Glucometer [phone] Random Glucose 252 H Calcium 8.8 Phosphorus 4.2 Magnesium 3.5 H Total Bilirubin 0.4 Direct Bilirubin 0.2 AST 15 ALT 28 Alkaline Phosphatase 58 Total Protein 5.3 L Albumin 2.1 L 12/01/17 11:55 WBC RBC Hgb Hct MCV MCH MCHC RDW Plt Count MPV Sodium Potassium Chloride Carbon Dioxide Anion Gap BUN Creatinine Creat Clearance w eGFR POC Glucometer [phone] Random Glucose Calcium Phosphorus Magnesium Total Bilirubin Direct Bilirubin AST ALT Alkaline Phosphatase Total Protein Albumin Active Medications Current Medications Acetaminophen (Tylenol -) 650 mg PO Q6H PRN PRN Reason: PAIN OR FEVER Last Admin: 11/30/17 17:29 Dose: 650 mg Chlorhexidine Gluconate (Hibiclens For Decolonization -) 1 applic TP HS [facility] Last Admin: 12/01/17 21:34 Dose: 1 applic Heparin Sodium (Porcine) (Heparin -) 5,000 unit SQ TID [facility] Last Admin: 12/02/17 15:23 Dose: 5,000 unit Propofol (Diprivan -) 1,000,000 mcg in 100 mls @ 4.79 mls/hr IVPB TITR [facility]; Protocol Last Admin: 12/02/17 16:44 Dose: 30 mcg/kg/min, 14.37 mls/hr Fentanyl 500 mcg/ Dextrose 100 mls @ 20 mls/hr IVPB TITR [facility]; Protocol Last Admin: 12/02/17 12:46 Dose: 100 mcg/hr, 20 mls/hr Piperacillin Sod/Tazobactam (Sod 3.375 gm/ Dextrose) 50 mls @ 100 mls/hr IVPB Q6H-IV [facility]; Protocol Last Admin: 12/02/17 15:24 Dose: 100 mls/hr Norepinephrine Bitartrate 4, (000 mcg/ Dextrose) 500 mls @ 15 mls/hr IV TITR [facility]; Protocol Insulin Aspart (Novolog Vial Sliding Scale -) 1 vial SQ ACHS [facility]; Protocol Last Admin: 12/02/17 16:42 Dose: 10 units Methylprednisolone Sodium Succinate (Solu-Medrol -) 30 mg IVPUSH BID [facility] Mupirocin (Bactroban Ointment (For Decolonization) -) 1 applic NS BID [facility] Stop: 12/04/17 21:59 Last Admin: 12/02/17 09:37 Dose: 1 applic Polyethylene Glycol (Miralax (For Daily Use) -) 17 gm NGT BID [facility] Last Admin: 12/02/17 10:26 Dose: 17 grams Senna (Senna Oral Solution -) 8.8 mg PO HS [facility] Last Admin: 12/01/17 21:34 Dose: 8.8 mg Tamsulosin HCl (Flomax -) 0.4 mg PO DAILY@0830 [facility] Last Admin: 12/02/17 08:18 Dose: 0.4 mg ASSESSMENT/PLAN: A 67 y.o. M w/ PMHx. ILD, chronic hypoxic respiratory failure (on 2L NC at home) , recurrent PNA, SLE/lupus, HTN, DM2, BPH, presents to the ICU with acute hypoxic respiratory failure 2/2 PNA and hypervolemia. #Pulmonology -Acute hypoxic respiratory failure 2/2 PNA and hypervolemia Hold Lasix 40mg BID monitor Cr. Restarted Zosyn d/t hypotension and elevated white count. F/u Sputum Cx. If continuing to spike temperatures will start Vancomycin for MRSA empirically. Pt. currently intubated on Propofol 6mcg and Fentanyl 75mcg. Will try to wean off dopamine. D/C-ed Versed Consider trying a sedation vacation to assess mental status in AM Weaned off dopamine c/w Solu-medrol 40mg Q8H c/w Duonebs c/w ventolin Neb #Gastroenterology -Constipation Increase Miralax to BID Started Senna D/C Reglan d/t nephrotoxicity and in light of Pt.s BURKE -Diverticulosis -stable monitor for bleeding and worsening abdominal pain monitor stool for constipation #Infectious Disease -Sepsis 2/2 PNA C/w Zosyn #Cardiology -HTN c/w Losartan 100mg, Norvasc, 10mg and Metoprolol 100mg #Urology -BPH c/w Flomax #Endocrinology -DM2 ISS BGM #F/E/N -D/C IVF, restrict fluids -monitor electrolytes and replete as needed -Glucerna 1.5 tube feeds -D/C Lasix #PPx. -DVT Lovenox SQ Visit type - Emergency Visit Emergency Visit: Yes ED Registration Date: 11/21/17 Care time: The patient presented to the Emergency Department on the above date and was hospitalized for further evaluation of their emergent condition. - New Patient This patient is new to me today: No - Critical Care Critical Care patient: Yes Total Critical Care Time (in minutes): 42 Critical Care Statement: The care of this patient involved high complexity decision making to prevent further life threatening deterioration of the patient 's condition and/or to evaluate & treat vital organ system(s) failure or risk of failure. - Discharge Referral Referred to [facility] Med P.C.: No
--- NOTE | 2017-12-01 17:36 | PN ---
Progress Note, Physician History of Present Illness: minimal improvement fevers better still intubated and sedated - Current Medication List Current Medications: Active Medications Acetaminophen (Tylenol -) 650 mg PO Q6H PRN PRN Reason: PAIN OR FEVER Last Admin: 11/30/17 17:29 Dose: 650 mg Chlorhexidine Gluconate (Hibiclens For Decolonization -) 1 applic TP HS [facility] Last Admin: 12/01/17 00:54 Dose: 1 applic Heparin Sodium (Porcine) (Heparin -) 5,000 unit SQ TID [facility] Last Admin: 12/01/17 14:40 Dose: 5,000 unit Propofol (Diprivan -) 1,000,000 mcg in 100 mls @ 4.79 mls/hr IVPB TITR [facility]; Protocol Last Admin: 12/01/17 00:51 Dose: 25 mcg/kg/min, 11.975 mls/hr Dopamine HCl/Dextrose (Dopamine 400 Mg/D5w -) 400,000 mcg in 250 mls @ 14.969 mls/hr IVPB TITR [facility]; Protocol Last Admin: 12/01/17 00:53 Dose: 2 mcg/kg/min, 5.987 mls/hr Fentanyl 500 mcg/ Dextrose 100 mls @ 20 mls/hr IVPB TITR [facility]; Protocol Last Admin: 12/01/17 11:09 Dose: 75 mcg/hr, 15 mls/hr Piperacillin Sod/Tazobactam (Sod 3.375 gm/ Dextrose) 50 mls @ 100 mls/hr IVPB Q6H-IV [facility]; Protocol Last Admin: 12/01/17 14:40 Dose: 100 mls/hr Insulin Aspart (Novolog Vial Sliding Scale -) 1 vial SQ ACHS [facility]; Protocol Last Admin: 12/01/17 17:11 Dose: 6 units Methylprednisolone Sodium Succinate (Solu-Medrol -) 40 mg IVPUSH Q8H-IV [facility] Last Admin: 12/01/17 17:11 Dose: 40 mg Midazolam HCl (Versed -) 2 mg IVPUSH Q4H PRN PRN Reason: AGITATION Last Admin: 11/30/17 18:06 Dose: 2 mg Mupirocin (Bactroban Ointment (For Decolonization) -) 1 applic NS BID [facility] Stop: 12/04/17 21:59 Last Admin: 12/01/17 09:52 Dose: 1 applic Polyethylene Glycol (Miralax (For Daily Use) -) 17 gm NGT BID [facility] Last Admin: 12/01/17 09:51 Dose: 17 grams Senna (Senna Oral Solution -) 8.8 mg PO HS [facility] Tamsulosin HCl (Flomax -) 0.4 mg PO DAILY@0830 [facility] Last Admin: 12/01/17 09:50 Dose: 0.4 mg - Objective Vital Signs: Vital Signs Temperature 98.7 F 12/01/17 14:00 Pulse Rate 81 12/01/17 16:00 Respiratory Rate 28 H 12/01/17 17:02 Blood Pressure 91/57 L 12/01/17 16:00 O2 Sat by Pulse Oximetry (%) 98 12/01/17 10:00 Constitutional: Yes: Other Respiratory: Yes: Intubated, Mechanically Ventilated Gastrointestinal: Yes: Normal Bowel Sounds, Soft Musculoskeletal: Yes: WNL Extremities: Yes: WNL Neurological: Yes: Other Labs: CBC, BMP 12/01/17 05:30 12/01/17 05:30 INR, PTT INR 1.11 (0.83-1.09) H 11/21/17 11:26 Assessment/Plan Respiratory Failure Pneumonia Sepsis Interstitial Lung Disease HTN DM BPH fungameia beto continues to detoriate,family thinking further plan still requiring lot of oxygen support prognosis is guarded spoke with family plan continue abx monitor for bleeding resp support gi prophylaxis rest as per icu prognosis does not look good cc 40 min
--- NOTE | 2017-12-01 18:53 | PN ---
Progress Note, Physician - Current Medication List Current Medications: Active Medications Acetaminophen (Tylenol -) 650 mg PO Q6H PRN PRN Reason: PAIN OR FEVER Last Admin: 11/30/17 17:29 Dose: 650 mg Chlorhexidine Gluconate (Hibiclens For Decolonization -) 1 applic TP HS [facility] Last Admin: 12/01/17 00:54 Dose: 1 applic Heparin Sodium (Porcine) (Heparin -) 5,000 unit SQ TID [facility] Last Admin: 12/01/17 14:40 Dose: 5,000 unit Propofol (Diprivan -) 1,000,000 mcg in 100 mls @ 4.79 mls/hr IVPB TITR [facility]; Protocol Last Admin: 12/01/17 00:51 Dose: 25 mcg/kg/min, 11.975 mls/hr Dopamine HCl/Dextrose (Dopamine 400 Mg/D5w -) 400,000 mcg in 250 mls @ 14.969 mls/hr IVPB TITR [facility]; Protocol Last Admin: 12/01/17 00:53 Dose: 2 mcg/kg/min, 5.987 mls/hr Fentanyl 500 mcg/ Dextrose 100 mls @ 20 mls/hr IVPB TITR [facility]; Protocol Last Admin: 12/01/17 11:09 Dose: 75 mcg/hr, 15 mls/hr Piperacillin Sod/Tazobactam (Sod 3.375 gm/ Dextrose) 50 mls @ 100 mls/hr IVPB Q6H-IV [facility]; Protocol Last Admin: 12/01/17 14:40 Dose: 100 mls/hr Insulin Aspart (Novolog Vial Sliding Scale -) 1 vial SQ ACHS [facility]; Protocol Last Admin: 12/01/17 17:11 Dose: 6 units Methylprednisolone Sodium Succinate (Solu-Medrol -) 40 mg IVPUSH Q8H-IV [facility] Last Admin: 12/01/17 17:11 Dose: 40 mg Midazolam HCl (Versed -) 2 mg IVPUSH Q4H PRN PRN Reason: AGITATION Last Admin: 11/30/17 18:06 Dose: 2 mg Mupirocin (Bactroban Ointment (For Decolonization) -) 1 applic NS BID [facility] Stop: 12/04/17 21:59 Last Admin: 12/01/17 09:52 Dose: 1 applic Polyethylene Glycol (Miralax (For Daily Use) -) 17 gm NGT BID [facility] Last Admin: 12/01/17 09:51 Dose: 17 grams Senna (Senna Oral Solution -) 8.8 mg PO HS [facility] Tamsulosin HCl (Flomax -) 0.4 mg PO DAILY@0830 [facility] Last Admin: 12/01/17 09:50 Dose: 0.4 mg - Objective Vital Signs: Vital Signs Temperature 98.7 F 12/01/17 18:00 Pulse Rate 110 H 12/01/17 18:00 Respiratory Rate 28 H 12/01/17 18:00 Blood Pressure 87/50 L 12/01/17 18:00 O2 Sat by Pulse Oximetry (%) 98 12/01/17 10:00 Constitutional: Yes: No Distress HENT: Yes: Atraumatic Neck: Yes: Supple Cardiovascular: Yes: Regular Rate and Rhythm Respiratory: Yes: Rhonchi Gastrointestinal: Yes: Normal Bowel Sounds Extremities: Yes: WNL Edema: LLE: Trace, RLE: Trace Peripheral Pulses WNL: Yes Labs: CBC, BMP 12/01/17 05:30 12/01/17 05:30 INR, PTT INR 1.11 (0.83-1.09) H 11/21/17 11:26 Problem List - Problems (1) Acute respiratory failure with hypoxia Assessment/Plan: intubated sedated Code(s): J96.01 - ACUTE RESPIRATORY FAILURE WITH HYPOXIA (2) Pneumonia Assessment/Plan: on iv abx duo nebs Code(s): J18.9 - PNEUMONIA, UNSPECIFIED ORGANISM Qualifiers: Lung location: unspecified part of lung (3) SLE (systemic lupus erythematosus) Code(s): M32.9 - SYSTEMIC LUPUS ERYTHEMATOSUS, UNSPECIFIED Qualifiers: Systemic lupus erythematosus organ involvement: unspecified (4) Sepsis Code(s): A41.9 - SEPSIS, UNSPECIFIED ORGANISM Qualifiers: Sepsis type: sepsis due to unspecified organism Qualified Code(s): A41.9 - Sepsis, unspecified organism Assessment/Plan icu cc time 30 min
[2017-12-01] MEDS: SENNOSIDES 8.8 MG/5 ML BULK BOTTLE PO SCH (21:34)
[2017-12-01] MEDS ORDERED: PROPOFOL 1,000,000 MCG/100 ML VIAL ONE (21:51)
[2017-12-02] MEDS ORDERED: fentaNYL CITRATE 250 MCG/5 ML VIAL ONE ×5 (00:27→22:27)
[2017-12-02] MEDS ORDERED: PIPERACILLIN/TAZOBACTAM 3.375 GM VIAL IVPB ONE ×4 (01:17→22:09)
[2017-12-02] MEDS ORDERED: DEXTROSE 5%-WATER - 50 ML IVPB ONE ×4 (01:17→22:09)
[2017-12-02] MEDS: PIPERACILLIN/TAZOB 3.375 GM 3.375 GM in DEXTROSE 5%-WATER - 50 ML IVPB SCH ×4 (01:59→22:12)
[2017-12-02] MEDS: methylPREDNISolone NA SUCC 40 MG/1 ML VIAL IVPUSH SCH ×3 (02:02→22:11)
[2017-12-02] MEDS: HEPARIN NA (PORCINE) 5,000 UNITS/ML 1ML VIAL SQ SCH ×3 (06:33→22:11)
[2017-12-02] MEDS ORDERED: PROPOFOL 1,000,000 MCG/100 ML VIAL ONE (06:33)
[2017-12-02] MEDS: INSULIN SLIDING SCALE (NOVOLOG) 1 VIAL SQ SCH ×4 (06:38→22:13)
[2017-12-02 07:28] LABS: BASO % 0.4 % (0-2.0); HEMATOCRIT 38.1 % (35.4-49); HEMOGLOBIN 11.8 GM/dL (11.7-16.9); LYMPH % 2.4 % (8-40); MCH 29.7 pg (25.7-33.7); MCHC 31.1 g/dl (32.0-35.9); MEAN CELL VOLUME 95.7 fl (80-96); MEAN PLT VOLUME 10.3 fl (7.5-11.1); MONO % 4.8 % (3.8-10.2); NEUT % 92.4 % (42.8-82.8); PLATELET COUNT 95 K/MM3 (134-434); RBC 3.98 M/mm3 (4.00-5.60); RDW 15.9 % (11.9-15.9); WHITE BLOOD COUNT 10.8 K/mm3 (4.0-10.0)
[2017-12-02 08:09] LABS: ALK PHOS 50 U/L (45-117); ANION GAP 4 MMOL/L (8-16); BILIRUBIN,TOTAL 0.5 mg/dL (0.2-1); CALCIUM 8.8 mg/dL (8.5-10.1); CHLORIDE 116 mmol/L (98-107); CO2 39 mmol/L (21-32); CREATININE 2.1 mg/dL (0.55-1.3); MAGNESIUM 3.9 mg/dL (1.8-2.4); PHOSPHOROUS 4.1 mg/dL (2.5-4.9); SGOT/AST 9 U/L (15-37); SGPT/ALT 22 U/L (13-61); SODIUM 160 mmol/L (136-145); TOT PROT 5.2 g/dl (6.4-8.2)
[2017-12-02] MEDS: TAMSULOSIN HCL 0.4 MG CAP PO SCH (08:18)
[2017-12-02 08:26] LABS: BLOOD UREA NITROGEN > 150 mg/dL (7-18); GLUCOSE,RANDOM 405 mg/dL (74-106)
[2017-12-02] MEDS: MUPIROCIN 2% TOPICAL OINTMENT FOR DECOLONIZATION NS SCH ×2 (09:37→22:13)
[2017-12-02] MEDS: POLYETHYLENE GLYCOL 3350 119 GM BTL NGT SCH ×2 (10:26→22:12)
--- NOTE | 2017-12-02 11:26 | PN ---
Progress Note, Physician History of Present Illness: Remains sedated on ventilator, remains off dopamine gtt. - Current Medication List Current Medications: Active Medications Acetaminophen (Tylenol -) 650 mg PO Q6H PRN PRN Reason: PAIN OR FEVER Last Admin: 11/30/17 17:29 Dose: 650 mg Chlorhexidine Gluconate (Hibiclens For Decolonization -) 1 applic TP HS [facility] Last Admin: 12/01/17 21:34 Dose: 1 applic Heparin Sodium (Porcine) (Heparin -) 5,000 unit SQ TID [facility] Last Admin: 12/02/17 06:33 Dose: 5,000 unit Propofol (Diprivan -) 1,000,000 mcg in 100 mls @ 4.79 mls/hr IVPB TITR [facility]; Protocol Last Titration: 12/02/17 06:38 Dose: 30 mcg/kg/min, 14.37 mls/hr Fentanyl 500 mcg/ Dextrose 100 mls @ 20 mls/hr IVPB TITR [facility]; Protocol Last Admin: 12/01/17 23:59 Dose: 100 mcg/hr, 20 mls/hr Piperacillin Sod/Tazobactam (Sod 3.375 gm/ Dextrose) 50 mls @ 100 mls/hr IVPB Q6H-IV [facility]; Protocol Last Admin: 12/02/17 08:25 Dose: 100 mls/hr Insulin Aspart (Novolog Vial Sliding Scale -) 1 vial SQ ACHS [facility]; Protocol Last Admin: 12/02/17 06:38 Dose: 12 units Methylprednisolone Sodium Succinate (Solu-Medrol -) 40 mg IVPUSH Q8H-IV [facility] Last Admin: 12/02/17 09:37 Dose: 40 mg Midazolam HCl (Versed -) 2 mg IVPUSH Q4H PRN PRN Reason: AGITATION Last Admin: 11/30/17 18:06 Dose: 2 mg Mupirocin (Bactroban Ointment (For Decolonization) -) 1 applic NS BID [facility] Stop: 12/04/17 21:59 Last Admin: 12/02/17 09:37 Dose: 1 applic Polyethylene Glycol (Miralax (For Daily Use) -) 17 gm NGT BID [facility] Last Admin: 12/02/17 10:26 Dose: 17 grams Senna (Senna Oral Solution -) 8.8 mg PO HS [facility] Last Admin: 12/01/17 21:34 Dose: 8.8 mg Tamsulosin HCl (Flomax -) 0.4 mg PO DAILY@0830 [facility] Last Admin: 12/02/17 08:18 Dose: 0.4 mg - Objective Vital Signs: Vital Signs Temperature 99.0 F 12/02/17 08:00 Pulse Rate 67 12/02/17 10:00 Respiratory Rate 28 H 12/02/17 10:28 Blood Pressure 85/48 L 12/02/17 10:00 O2 Sat by Pulse Oximetry (%) 97 12/02/17 09:00 Cardiovascular: Yes: Regular Rate and Rhythm Respiratory: Yes: Intubated, Mechanically Ventilated, Rhonchi Gastrointestinal: Yes: Normal Bowel Sounds, Soft Edema: No Labs: CBC, BMP 12/02/17 07:10 12/02/17 07:10 INR, PTT INR 1.11 (0.83-1.09) H 11/21/17 11:26 - ....Imaging Chest X-ray: Report Reviewed (Infiltrative changes) Problem List - Problems (1) Hypertension Code(s): I10 - ESSENTIAL (PRIMARY) HYPERTENSION Qualifiers: Hypertension type: essential hypertension Qualified Code(s): I10 - Essential (primary) hypertension (2) Old myocardial infarction Code(s): I25.2 - OLD MYOCARDIAL INFARCTION (3) Acute and chronic respiratory failure with hypoxia Code(s): J96.21 - ACUTE AND CHRONIC RESPIRATORY FAILURE WITH HYPOXIA (4) CKD (chronic kidney disease) Code(s): N18.9 - CHRONIC KIDNEY DISEASE, UNSPECIFIED Qualifiers: Chronic kidney disease stage: stage 2 (mild) Qualified Code(s): N18.2 - Chronic kidney disease, stage 2 (mild) (5) Pneumonia Code(s): J18.9 - PNEUMONIA, UNSPECIFIED ORGANISM Qualifiers: Lung location: unspecified part of lung (6) SLE (systemic lupus erythematosus) Code(s): M32.9 - SYSTEMIC LUPUS ERYTHEMATOSUS, UNSPECIFIED Qualifiers: Systemic lupus erythematosus organ involvement: unspecified (7) Sepsis Code(s): A41.9 - SEPSIS, UNSPECIFIED ORGANISM Qualifiers: Sepsis type: sepsis due to unspecified organism Qualified Code(s): A41.9 - Sepsis, unspecified organism (8) Hypernatremia Code(s): E87.0 - HYPEROSMOLALITY AND HYPERNATREMIA Assessment/Plan 09/09/2017 Echo: Normal LV size and fxn, normal RV size and fxn, mild AR, MR, TR RVSP 30-40 mmHg 11/02/2017 Myoview: Moderate inferoapical infarct with vandana-infarct ischemia , LVEF 57% 1. Acute on Chronic Hypoxic and hypercapneic Respiratory Failure 2. Pneumonia 3. Septic shock resolved 4. Interstitial Lung Disease 5. Acute on chronic diastolic heart failure euvolemic 6. Acute on CKD due to hypotension and renal hypoperfusion 7. CAD post CA with abnormal MPI 8. HTN 9. DM 10. BPH 11. Hypernatremia PLAN: 1. Free water flushes to correct free water deficit, judicious hydration and monitor renal recovery 2. Observe off dopamine gtt to maintain MAP>65 mmHg 3. Resume ARB and beta charles as hemodynamics tolerate once off of pressors and renal fxn stabilizes 4. Empiric abx course, bronchodilators and IV steroids as per pulmonary service 5. Ventilator wean as tolerated, enteral feeds, DVT/GI prophylaxis, may need trach
[2017-12-02] MEDS ORDERED: INSULIN (NOVOLOG) ASPART 100 UNITS/ML 10ML VIAL ONE ×2 (11:53→16:41)
--- NOTE | 2017-12-02 12:34 | PN ---
Progress Note (short form) - Note Progress Note: Renal follow up for BURKE Pt seen and examined in the ICU on Vent, 55% FiO2 not on IVF, not on pressers BP is marginal making urine via catheter Vital Signs Temperature 99.0 F 12/02/17 08:00 Pulse Rate 67 12/02/17 12:00 Respiratory Rate 28 H 12/02/17 12:00 Blood Pressure 97/55 L 12/02/17 12:00 O2 Sat by Pulse Oximetry (%) 100 12/02/17 12:07 Intake & Output 11/29/17 11/30/17 12/01/17 12/02/17 23:59 23:59 23:59 23:59 Intake Total 2090 2123 1421.3 1432 Output Total 2600 1350 1650 500 Balance -510 773 -228.7 932 Weight 76.232 kg 76.612 kg 76.34 kg 71.923 kg NAD sedated on vent via ET tube RRR Course Bs soft NT/ND no bladder distension No LE edema, clubbing or cyanosis CBC, BMP 12/02/17 07:10 12/02/17 07:10 Current Medications Acetaminophen (Tylenol -) 650 mg PO Q6H PRN PRN Reason: PAIN OR FEVER Last Admin: 11/30/17 17:29 Dose: 650 mg Chlorhexidine Gluconate (Hibiclens For Decolonization -) 1 applic TP HS [facility] Last Admin: 12/01/17 21:34 Dose: 1 applic Heparin Sodium (Porcine) (Heparin -) 5,000 unit SQ TID [facility] Last Admin: 12/02/17 06:33 Dose: 5,000 unit Propofol (Diprivan -) 1,000,000 mcg in 100 mls @ 4.79 mls/hr IVPB TITR [facility]; Protocol Last Titration: 12/02/17 06:38 Dose: 30 mcg/kg/min, 14.37 mls/hr Fentanyl 500 mcg/ Dextrose 100 mls @ 20 mls/hr IVPB TITR [facility]; Protocol Last Admin: 12/01/17 23:59 Dose: 100 mcg/hr, 20 mls/hr Piperacillin Sod/Tazobactam (Sod 3.375 gm/ Dextrose) 50 mls @ 100 mls/hr IVPB Q6H-IV [facility]; Protocol Last Admin: 12/02/17 08:25 Dose: 100 mls/hr Insulin Aspart (Novolog Vial Sliding Scale -) 1 vial SQ ACHS [facility]; Protocol Last Admin: 12/02/17 11:58 Dose: 12 units Methylprednisolone Sodium Succinate (Solu-Medrol -) 40 mg IVPUSH Q8H-IV [facility] Last Admin: 12/02/17 09:37 Dose: 40 mg Midazolam HCl (Versed -) 2 mg IVPUSH Q4H PRN PRN Reason: AGITATION Last Admin: 11/30/17 18:06 Dose: 2 mg Mupirocin (Bactroban Ointment (For Decolonization) -) 1 applic NS BID [facility] Stop: 12/04/17 21:59 Last Admin: 12/02/17 09:37 Dose: 1 applic Polyethylene Glycol (Miralax (For Daily Use) -) 17 gm NGT BID [facility] Last Admin: 12/02/17 10:26 Dose: 17 grams Senna (Senna Oral Solution -) 8.8 mg PO HS [facility] Last Admin: 12/01/17 21:34 Dose: 8.8 mg Tamsulosin HCl (Flomax -) 0.4 mg PO DAILY@0830 [facility] Last Admin: 12/02/17 08:18 Dose: 0.4 mg 67yo man with a PMH of HTN, DM, BPH and SLE. He was brought in to ER with worsening SOB and found to have respiratory failure from PNA/ARDS with BURKE and hypernatremia #BURKE secondary to renal hypoprofusion in setting of sepsis and intravascular volume depletion #Hypernatremia secondary to volume depletion/water deficit #Respiratory failure from ARDS/PNA #Sepsis Check urine studies for FeNa, FeUrea, UPCR US of the kidney to r/o partial or unilateral obstruction Check LDH, Haptoglobin to r/o MAHA given low plt counts Case discussed with ICU attending, attempting to wean in setting of ARDS and requests that pt be kept hypovolemic if possible will defer IVF hydration at this point Increase free water with tube feeds check CVP, and consider vasopresser to increase MAP and improve renal profusion if no improvement in renal function in next 24 hours will warrant volume expansion BUN disproportionately high compared to Cr likely due to steroids + azotemia unable to access for uremia as pt is sedated no hyperkalemia, metabolic acidosis or fluid overload to warrant SPOT CHECKER at the present time. Jaswant Sparrow DO
--- NOTE | 2017-12-02 12:35 | PN ---
Teaching Attending Note Name of Resident: James Vasquez ATTENDING PHYSICIAN STATEMENT I saw and evaluated the patient. I reviewed the resident's note and discussed the case with the resident. I agree with the resident's findings and plan as documented. SUBJECTIVE: Patient seen and examined in the ICU. Intubated on AC Mode of vent, 55% FiO2 and PEEP 8. Minimal improvement in vent support. Currently off Dopamine, but BP marginal. CXR: No gross change in bilateral interstitial markings Intake & Output 11/29/17 11/30/17 12/01/17 12/02/17 23:59 23:59 23:59 23:59 Intake Total 2090 2123 1421.3 1432 Output Total 2600 1350 1650 500 Balance -510 773 -228.7 932 Weight 168 lb 1 oz 168 lb 14.4 oz 168 lb 4.8 oz 158 lb 9 oz Last Vital Signs Temp Pulse Resp BP Pulse Ox 99.0 F 67 28 H 97/55 L 100 12/02/17 08:00 12/02/17 12:00 12/02/17 12:29 12/02/17 12:00 12/02/17 12:07 Active Medications Acetaminophen (Tylenol -) 650 mg PO Q6H PRN PRN Reason: PAIN OR FEVER Last Admin: 11/30/17 17:29 Dose: 650 mg Chlorhexidine Gluconate (Hibiclens For Decolonization -) 1 applic TP HS [facility] Last Admin: 12/01/17 21:34 Dose: 1 applic Heparin Sodium (Porcine) (Heparin -) 5,000 unit SQ TID [facility] Last Admin: 12/02/17 06:33 Dose: 5,000 unit Propofol (Diprivan -) 1,000,000 mcg in 100 mls @ 4.79 mls/hr IVPB TITR [facility]; Protocol Last Titration: 12/02/17 06:38 Dose: 30 mcg/kg/min, 14.37 mls/hr Fentanyl 500 mcg/ Dextrose 100 mls @ 20 mls/hr IVPB TITR [facility]; Protocol Last Admin: 12/01/17 23:59 Dose: 100 mcg/hr, 20 mls/hr Piperacillin Sod/Tazobactam (Sod 3.375 gm/ Dextrose) 50 mls @ 100 mls/hr IVPB Q6H-IV [facility]; Protocol Last Admin: 10/12/18 08:25 Dose: 100 mls/hr Insulin Aspart (Novolog Vial Sliding Scale -) 1 vial SQ ACHS [facility]; Protocol Last Admin: 12/02/17 11:58 Dose: 12 units Methylprednisolone Sodium Succinate (Solu-Medrol -) 40 mg IVPUSH Q8H-IV [facility] Last Admin: 12/02/17 09:37 Dose: 40 mg Mupirocin (Bactroban Ointment (For Decolonization) -) 1 applic NS BID [facility] Stop: 12/04/17 21:59 Last Admin: 12/02/17 09:37 Dose: 1 applic Polyethylene Glycol (Miralax (For Daily Use) -) 17 gm NGT BID [facility] Last Admin: 12/02/17 10:26 Dose: 17 grams Senna (Senna Oral Solution -) 8.8 mg PO HS [facility] Last Admin: 12/01/17 21:34 Dose: 8.8 mg Tamsulosin HCl (Flomax -) 0.4 mg PO DAILY@0830 [facility] Last Admin: 12/02/17 08:18 Dose: 0.4 mg Gen: Intubated and sedated Heart: RRR Lung: Bilateral coarse crackles / rhonchi Abd: soft, nontender Ext: no edema ASSESSMENT AND PLAN: Acute on Chronic Hypoxic Respiratory Failure due to end stage ILD Pneumonia Sepsis Volume Overload Interstitial Lung Disease HTN DM BPH Acute on CKD - Wean vent parameters as tolerated - Will need access for possible pressors and for CVP monitoring - Continue to hold Lasix - monitor urine output, creatinine - replete lytes - monitor CXR - ABX - Decrease medrol - inhaled bronchodilators - Will need further discussions with the patient/family regarding GOC given advanced/end stage ILD: will need Trach if family is agreeable and he is stable. - Continue ICU monitoring due to tenuous respiratory status Dr Javier Critical care time spent in reviewing chart, evaluating patient and formulating plan 35 min OBJECTIVE: ASSESSMENT AND PLAN:
[2017-12-02] MEDS: FENTANYL INJECTION 500 MCG in DEXTROSE 5%-WATER - 90 ML IVPB SCH ×2 (12:46→18:37)
[2017-12-02 13:26] LABS: PLATELET ESTIMATE DECREASED
[2017-12-02 13:35] LABS: URINE APPEARANCE CLEAR; URINE BILIRUBIN NEGATIVE (<2.0 mg/dL); URINE COLOR LTYELLOW; URINE GLUCOSE (UA) NEGATIVE (NEGATIVE); URINE KETONE NEGATIVE (NEGATIVE); URINE LEUK ESTERASE 1+ (NEGATIVE); URINE NITRITE NEGATIVE (NEGATIVE); URINE PROTEIN NEGATIVE (NEGATIVE); URINE UROBILINOGEN NEGATIVE mg/dL (0.2-1.0)
[2017-12-02 13:57] LABS: URINE BACTERIA RARE /hpf (NONE SEEN); YEAST MODERATE
[2017-12-02] MEDS: METOCLOPRAMIDE HCL 5 MG/5 ML UNIT DOSE CUP PO SCH (14:06)
--- NOTE | 2017-12-02 14:33 | PN ---
Progress Note, Physician History of Present Illness: slight improvement off of pressors vents setting slightly better wbc trending down - Current Medication List Current Medications: Active Medications Acetaminophen (Tylenol -) 650 mg PO Q6H PRN PRN Reason: PAIN OR FEVER Last Admin: 11/30/17 17:29 Dose: 650 mg Chlorhexidine Gluconate (Hibiclens For Decolonization -) 1 applic TP HS [facility] Last Admin: 12/01/17 21:34 Dose: 1 applic Heparin Sodium (Porcine) (Heparin -) 5,000 unit SQ TID [facility] Last Admin: 12/02/17 06:33 Dose: 5,000 unit Propofol (Diprivan -) 1,000,000 mcg in 100 mls @ 4.79 mls/hr IVPB TITR [facility]; Protocol Last Titration: 12/02/17 10:30 Dose: 25 mcg/kg/min, 11.975 mls/hr Fentanyl 500 mcg/ Dextrose 100 mls @ 20 mls/hr IVPB TITR [facility]; Protocol Last Admin: 12/02/17 12:46 Dose: 100 mcg/hr, 20 mls/hr Piperacillin Sod/Tazobactam (Sod 3.375 gm/ Dextrose) 50 mls @ 100 mls/hr IVPB Q6H-IV [facility]; Protocol Last Admin: 12/02/17 08:25 Dose: 100 mls/hr Insulin Aspart (Novolog Vial Sliding Scale -) 1 vial SQ ACHS [facility]; Protocol Last Admin: 12/02/17 11:58 Dose: 12 units Methylprednisolone Sodium Succinate (Solu-Medrol -) 30 mg IVPUSH BID [facility] Mupirocin (Bactroban Ointment (For Decolonization) -) 1 applic NS BID [facility] Stop: 12/04/17 21:59 Last Admin: 12/02/17 09:37 Dose: 1 applic Polyethylene Glycol (Miralax (For Daily Use) -) 17 gm NGT BID [facility] Last Admin: 12/02/17 10:26 Dose: 17 grams Senna (Senna Oral Solution -) 8.8 mg PO HS [facility] Last Admin: 12/01/17 21:34 Dose: 8.8 mg Tamsulosin HCl (Flomax -) 0.4 mg PO DAILY@0830 [facility] Last Admin: 12/02/17 08:18 Dose: 0.4 mg - Objective Vital Signs: Vital Signs Temperature 99.0 F 10/12/18 08:00 Pulse Rate 73 12/02/17 14:00 Respiratory Rate 28 H 12/02/17 14:00 Blood Pressure 101/57 L 12/02/17 14:00 O2 Sat by Pulse Oximetry (%) 100 12/02/17 12:07 Constitutional: Yes: Other Cardiovascular: Yes: Regular Rate and Rhythm Respiratory: Yes: Intubated, Mechanically Ventilated Gastrointestinal: Yes: Normal Bowel Sounds, Soft Musculoskeletal: Yes: WNL Extremities: Yes: WNL Labs: CBC, BMP 12/02/17 07:10 12/02/17 07:10 INR, PTT INR 1.11 (0.83-1.09) H 11/21/17 11:26 - ....Imaging Chest X-ray: Report Reviewed, Image Reviewed Assessment/Plan Respiratory Failure Pneumonia Sepsis Interstitial Lung Disease HTN DM BPH sputum cx noted plan continue current management zosyn resp support rest as per icu close monitoring intubated vented cc 38 min
--- NOTE | 2017-12-02 14:44 | PROC ---
Central Line Insertion Indication: CVP Monitoring Risks and Benefits Explained: Yes Consent on Chart: Yes Central Line: Triple Lumen Catheter Anesthesia: 1% Lidocaine Sterile Technique: Yes Ultrasound Guided Assistance: Yes Position: Left Internal Jugular Post Insertion: Yes: Chest X-Ray Ordered Sterile Dressing Applied: Yes Remarks: Triple Lumen Catheter inserted under US guidance to 18cm. Sterile technique was used with precautions to ensure sterile field. X-Ray ordered to confirm placement. Procedure supervised by Dr. Javier and assisted by Dr. Nery Galvan.
--- NOTE | 2017-12-02 16:16 | PN ---
Progress Note, Physician History of Present Illness: intubated sedated - Current Medication List Current Medications: Active Medications Acetaminophen (Tylenol -) 650 mg PO Q6H PRN PRN Reason: PAIN OR FEVER Last Admin: 11/30/17 17:29 Dose: 650 mg Chlorhexidine Gluconate (Hibiclens For Decolonization -) 1 applic TP HS [facility] Last Admin: 12/01/17 21:34 Dose: 1 applic Heparin Sodium (Porcine) (Heparin -) 5,000 unit SQ TID [facility] Last Admin: 12/02/17 15:23 Dose: 5,000 unit Propofol (Diprivan -) 1,000,000 mcg in 100 mls @ 4.79 mls/hr IVPB TITR [facility]; Protocol Last Titration: 12/02/17 10:30 Dose: 25 mcg/kg/min, 11.975 mls/hr Fentanyl 500 mcg/ Dextrose 100 mls @ 20 mls/hr IVPB TITR [facility]; Protocol Last Admin: 12/02/17 12:46 Dose: 100 mcg/hr, 20 mls/hr Piperacillin Sod/Tazobactam (Sod 3.375 gm/ Dextrose) 50 mls @ 100 mls/hr IVPB Q6H-IV [facility]; Protocol Last Admin: 12/02/17 15:24 Dose: 100 mls/hr Insulin Aspart (Novolog Vial Sliding Scale -) 1 vial SQ ACHS [facility]; Protocol Last Admin: 12/02/17 11:58 Dose: 12 units Methylprednisolone Sodium Succinate (Solu-Medrol -) 30 mg IVPUSH BID [facility] Mupirocin (Bactroban Ointment (For Decolonization) -) 1 applic NS BID [facility] Stop: 12/04/17 21:59 Last Admin: 12/02/17 09:37 Dose: 1 applic Polyethylene Glycol (Miralax (For Daily Use) -) 17 gm NGT BID [facility] Last Admin: 12/02/17 10:26 Dose: 17 grams Senna (Senna Oral Solution -) 8.8 mg PO HS [facility] Last Admin: 12/01/17 21:34 Dose: 8.8 mg Tamsulosin HCl (Flomax -) 0.4 mg PO DAILY@0830 [facility] Last Admin: 12/02/17 08:18 Dose: 0.4 mg - Objective Vital Signs: Vital Signs Temperature 99.0 F 12/02/17 08:00 Pulse Rate 73 12/02/17 14:00 Respiratory Rate 28 H 12/02/17 14:46 Blood Pressure 101/57 L 12/02/17 14:00 O2 Sat by Pulse Oximetry (%) 100 12/02/17 12:07 Constitutional: Yes: No Distress HENT: Yes: Atraumatic Neck: Yes: Supple Cardiovascular: Yes: Regular Rate and Rhythm Respiratory: Yes: Rhonchi Gastrointestinal: Yes: Normal Bowel Sounds Extremities: Yes: WNL Edema: Yes Edema: LLE: 1+, RLE: 1+ Neurological: Yes: Other (sedated) Labs: CBC, BMP 12/02/17 07:10 12/02/17 07:10 INR, PTT INR 1.11 (0.83-1.09) H 11/21/17 11:26 Problem List - Problems (1) Acute respiratory failure with hypoxia Assessment/Plan: intubated sedated Code(s): J96.01 - ACUTE RESPIRATORY FAILURE WITH HYPOXIA (2) Pneumonia Assessment/Plan: on iv abx duo nebs id on board Code(s): J18.9 - PNEUMONIA, UNSPECIFIED ORGANISM Qualifiers: Lung location: unspecified part of lung (3) SLE (systemic lupus erythematosus) Code(s): M32.9 - SYSTEMIC LUPUS ERYTHEMATOSUS, UNSPECIFIED Qualifiers: Systemic lupus erythematosus organ involvement: unspecified (4) Sepsis Code(s): A41.9 - SEPSIS, UNSPECIFIED ORGANISM Qualifiers: Sepsis type: sepsis due to unspecified organism Qualified Code(s): A41.9 - Sepsis, unspecified organism (5) Acute and chronic respiratory failure with hypoxia Code(s): J96.21 - ACUTE AND CHRONIC RESPIRATORY FAILURE WITH HYPOXIA (6) CKD (chronic kidney disease) Code(s): N18.9 - CHRONIC KIDNEY DISEASE, UNSPECIFIED Qualifiers: Chronic kidney disease stage: stage 2 (mild) Qualified Code(s): N18.2 - Chronic kidney disease, stage 2 (mild) (7) ILD (interstitial lung disease) Code(s): J84.9 - INTERSTITIAL PULMONARY DISEASE, UNSPECIFIED Assessment/Plan icu cc time 30 min
[2017-12-02] MEDS: PROPOFOL 1,000,000 MCG/100 ML VIAL IVPB SCH ×2 (16:44→22:12)
--- NOTE | 2017-12-02 17:19 | PN ---
Physical Exam: SUBJECTIVE: Patient seen and examined. No acute events overnight. Propofol was increased to 30mcg and Fentanyl was increased to 100mcg. This afternoon Central line was placed, CVP monitoring initiated and Levophed started. Pt. had a BM overnight. OBJECTIVE: Vital Signs Period Temp Pulse Resp BP Sys/Paul Pulse Ox Last 24 Hr 98.7 F-99.6 F 62-110 28-28 77-104/47-60 94-100 GENERAL: The patient is sedated, arousable to tactile stimulation HEAD: Normal with no signs of trauma. ENT: Ears normal, nares patent, dry mucous membranes. LUNGS: Mechanical ventilation, right-sided crackles, velcro-like sound, no wheezes, coarse breath sounds HEART: Soft heart beat, regular rate and rhythm, S1, S2 ABDOMEN: Soft, nontender, nondistended, normoactive bowel sounds, no guarding, no rebound, no hepatosplenomegaly, no masses. EXTREMITIES: 2+ dorsal pedal pulses, warm, well-perfused, no edema, <2 sec. cap. refill SKIN: Warm, dry, normal turgor Laboratory Results - last 24 hr 12/01/17 12/01/17 12/02/17 17:09 21:28 06:32 WBC RBC Hgb Hct MCV MCH MCHC RDW Plt Count MPV Absolute Neuts (auto) Neutrophils % Neutrophils % (Manual) Band Neutrophils % Lymphocytes % Lymphocytes % (Manual) Monocytes % Monocytes % (Manual) Eosinophils % Eosinophils % (Manual) Basophils % Basophils % (Manual) Nucleated RBC % Platelet Estimate Platelet Comment Sodium Potassium Chloride Carbon Dioxide Anion Gap BUN Creatinine Creat Clearance w eGFR POC Glucometer [phone] > 400 Random Glucose Calcium Phosphorus Magnesium Total Bilirubin AST ALT Alkaline Phosphatase Total Protein Albumin Urine Color Urine Appearance Urine pH Ur Specific [place] Urine Protein Urine Glucose (UA) Urine Ketones Urine Blood Urine Nitrite Urine Bilirubin Urine Urobilinogen Ur Leukocyte Esterase Urine WBC (Auto) Urine RBC (Auto) Urine Bacteria Urine Yeast U Random Total Protein Ur Random Sodium Ur Random Urea Nitrogn Urine Creatinine 12/02/17 12/02/17 12/02/17 06:35 07:10 07:10 WBC 10.8 H RBC 3.98 L Hgb 11.8 Hct 38.1 MCV 95.7 MCH 29.7 MCHC 31.1 L RDW 15.9 Plt Count 95 L MPV 10.3 D Absolute Neuts (auto) 10.0 H Neutrophils % 92.4 H Neutrophils % (Manual) 91.0 H Band Neutrophils % 2.0 Lymphocytes % 2.4 L D Lymphocytes % (Manual) 6.0 L D Monocytes % 4.8 D Monocytes % (Manual) 1 L D Eosinophils % 0.0 Eosinophils % (Manual) 0.0 D Basophils % 0.4 D Basophils % (Manual) 0.0 Nucleated RBC % 0 Platelet Estimate Decreased Platelet Comment No clumping noted Sodium 160 H Potassium 5.0 Chloride 116 H Carbon Dioxide 39 H Anion Gap 4 L BUN > 150 H* Creatinine 2.1 H Creat Clearance w eGFR 31.47 POC Glucometer > 400 Random Glucose 405 H* Calcium 8.8 Phosphorus 4.1 Magnesium 3.9 H Total Bilirubin 0.5 AST 9 L ALT 22 Alkaline Phosphatase 50 Total Protein 5.2 L Albumin 2.0 L Urine Color Urine Appearance Urine pH Ur Specific [place] Urine Protein Urine Glucose (UA) Urine Ketones Urine Blood Urine Nitrite Urine Bilirubin Urine Urobilinogen Ur Leukocyte Esterase Urine WBC (Auto) Urine RBC (Auto) Urine Bacteria Urine Yeast U Random Total Protein Ur Random Sodium Ur Random Urea Nitrogn Urine Creatinine 12/02/17 12/02/17 12/02/17 11:58 12:30 12:30 WBC RBC Hgb Hct MCV MCH MCHC RDW Plt Count MPV Absolute Neuts (auto) Neutrophils % Neutrophils % (Manual) Band Neutrophils % Lymphocytes % Lymphocytes % (Manual) Monocytes % Monocytes % (Manual) Eosinophils % Eosinophils % (Manual) Basophils % Basophils % (Manual) Nucleated RBC % Platelet Estimate Platelet Comment Sodium Potassium Chloride Carbon Dioxide Anion Gap BUN Creatinine Creat Clearance w eGFR POC Glucometer [phone] Random Glucose Calcium Phosphorus Magnesium Total Bilirubin AST ALT Alkaline Phosphatase Total Protein Albumin Urine Color Ltyellow Urine Appearance Clear Urine pH 5.0 Ur Specific [place] 1.018 Urine Protein Negative Urine Glucose (UA) Negative Urine Ketones Negative Urine Blood 1+ H Urine Nitrite Negative Urine Bilirubin Negative Urine Urobilinogen Negative Ur Leukocyte Esterase 1+ H Urine WBC (Auto) 3 Urine RBC (Auto) 11 Urine Bacteria Rare Urine Yeast Moderate U Random Total Protein 19 H Ur Random Sodium < 18 L Ur Random Urea Nitrogn Urine Creatinine 60.0 H 12/02/17 12/02/17 12/02/17 12:30 12:30 12:30 WBC RBC Hgb Hct MCV MCH MCHC RDW Plt Count MPV Absolute Neuts (auto) Neutrophils % Neutrophils % (Manual) Band Neutrophils % Lymphocytes % Lymphocytes % (Manual) Monocytes % Monocytes % (Manual) Eosinophils % Eosinophils % (Manual) Basophils % Basophils % (Manual) Nucleated RBC % Platelet Estimate Platelet Comment Sodium Potassium Chloride Carbon Dioxide Anion Gap BUN Creatinine Creat Clearance w eGFR POC Glucometer Random Glucose Calcium Phosphorus Magnesium Total Bilirubin AST ALT Alkaline Phosphatase Total Protein Albumin Urine Color Urine Appearance Urine pH Ur Specific [place] Urine Protein Urine Glucose (UA) Urine Ketones Urine Blood Urine Nitrite Urine Bilirubin Urine Urobilinogen Ur Leukocyte Esterase Urine WBC (Auto) Urine RBC (Auto) Urine Bacteria Urine Yeast U Random Total Protein Cancelled Ur Random Sodium Ur Random Urea Nitrogn 962 Urine Creatinine Cancelled 12/02/17 16:38 WBC RBC Hgb Hct MCV MCH MCHC RDW Plt Count MPV Absolute Neuts (auto) Neutrophils % Neutrophils % (Manual) Band Neutrophils % Lymphocytes % Lymphocytes % (Manual) Monocytes % Monocytes % (Manual) Eosinophils % Eosinophils % (Manual) Basophils % Basophils % (Manual) Nucleated RBC % Platelet Estimate Platelet Comment Sodium Potassium Chloride Carbon Dioxide Anion Gap BUN Creatinine Creat Clearance w eGFR POC Glucometer [phone] Random Glucose Calcium Phosphorus Magnesium Total Bilirubin AST ALT Alkaline Phosphatase Total Protein Albumin Urine Color Urine Appearance Urine pH Ur Specific [place] Urine Protein Urine Glucose (UA) Urine Ketones Urine Blood Urine Nitrite Urine Bilirubin Urine Urobilinogen Ur Leukocyte Esterase Urine WBC (Auto) Urine RBC (Auto) Urine Bacteria Urine Yeast U Random Total Protein Ur Random Sodium Ur Random Urea Nitrogn Urine Creatinine Active Medications Current Medications Acetaminophen (Tylenol -) 650 mg PO Q6H PRN PRN Reason: PAIN OR FEVER Last Admin: 11/30/17 17:29 Dose: 650 mg Chlorhexidine Gluconate (Hibiclens For Decolonization -) 1 applic TP HS [facility] Last Admin: 12/01/17 21:34 Dose: 1 applic Heparin Sodium (Porcine) (Heparin -) 5,000 unit SQ TID [facility] Last Admin: 12/02/17 15:23 Dose: 5,000 unit Propofol (Diprivan -) 1,000,000 mcg in 100 mls @ 4.79 mls/hr IVPB TITR [facility]; Protocol Last Admin: 12/02/17 16:44 Dose: 30 mcg/kg/min, 14.37 mls/hr Fentanyl 500 mcg/ Dextrose 100 mls @ 20 mls/hr IVPB TITR [facility]; Protocol Last Admin: 12/02/17 12:46 Dose: 100 mcg/hr, 20 mls/hr Piperacillin Sod/Tazobactam (Sod 3.375 gm/ Dextrose) 50 mls @ 100 mls/hr IVPB Q6H-IV [facility]; Protocol Last Admin: 12/02/17 15:24 Dose: 100 mls/hr Norepinephrine Bitartrate 4, (000 mcg/ Dextrose) 500 mls @ 15 mls/hr IV TITR [facility]; Protocol Insulin Aspart (Novolog Vial Sliding Scale -) 1 vial SQ ACHS [facility]; Protocol Last Admin: 12/02/17 16:42 Dose: 10 units Methylprednisolone Sodium Succinate (Solu-Medrol -) 30 mg IVPUSH BID [facility] Mupirocin (Bactroban Ointment (For Decolonization) -) 1 applic NS BID [facility] Stop: 12/04/17 21:59 Last Admin: 12/02/17 09:37 Dose: 1 applic Polyethylene Glycol (Miralax (For Daily Use) -) 17 gm NGT BID [facility] Last Admin: 12/02/17 10:26 Dose: 17 grams Senna (Senna Oral Solution -) 8.8 mg PO HS [facility] Last Admin: 12/01/17 21:34 Dose: 8.8 mg Tamsulosin HCl (Flomax -) 0.4 mg PO DAILY@0830 [facility] Last Admin: 12/02/17 08:18 Dose: 0.4 mg ASSESSMENT/PLAN: A 67 y.o. M w/ PMHx. ILD, chronic hypoxic respiratory failure (on 2L NC at home) , recurrent PNA, SLE/lupus, HTN, DM2, BPH, presents to the ICU with acute hypoxic respiratory failure 2/2 PNA and hypervolemia. #Pulmonology -Acute hypoxic respiratory failure 2/2 PNA and hypervolemia Hold Lasix 40mg BID monitor Cr. Restarted Zosyn d/t hypotension and elevated white count. F/u Sputum Cx. If continuing to spike temperatures will start Vancomycin for MRSA empirically. Pt. currently intubated on Propofol 6mcg and Fentanyl 75mcg. Will try to wean off dopamine. D/C-ed Versed Consider trying a sedation vacation to assess mental status in AM Weaned off dopamine Decreased Solu-medrol to 30mg BID c/w Duonebs c/w [facility] Palliative Care Consult appreciated. #Nephrology -BURKE on CKD Cr. now 2.1 decreased from 2.4 BUN over 150 Nephrology consult (Dr. Sparrow) appreciated- Dialysis not indicated at this time as Pt. is not in metabolic acidosis, hyperkalemic or fluid overloaded. We are unable to assess for uremic encephalopathy at this time as Pt. is intubated. Pt. BP is tenous necessitating pressors and therefore HD will likely be harmful. Pt. is very sensitive to being fluid overloaded because of his lung disease and therefore we cannot bolus Pt. prior to HD. LDH: 264 UA -, though growing moderate yeast FeNA: 0.4% indicating pre-renal disease FUrea: 21.6% indicating pre-renal disease (I used the BUN of 150, however the higher the BUN the more likely it is pre-renal disease) F/u Haptoglobin F/u Renal US #Gastroenterology -Constipation Increase Miralax to BID Started Senna D/C Reglan d/t nephrotoxicity and in light of Pt.s BURKE -Diverticulosis -stable monitor for bleeding and worsening abdominal pain monitor stool for constipation #Infectious Disease -Sepsis 2/2 PNA C/w Zosyn #Cardiology -HTN c/w Losartan 100mg, Norvasc, 10mg and Metoprolol 100mg #Urology -BPH c/w Flomax #Endocrinology -DM2 ISS BGM #F/E/N -D/C IVF, restrict fluids -monitor electrolytes and replete as needed -Glucerna 1.5 tube feeds with 60ml free water flushes (increased from 30ml 12/02-per Dr. Sparrow) -D/C Lasix #PPx. -DVT Lovenox SQ Visit type - Emergency Visit Emergency Visit: Yes ED Registration Date: 11/21/17 Care time: The patient presented to the Emergency Department on the above date and was hospitalized for further evaluation of their emergent condition. - New Patient This patient is new to me today: No - Critical Care Critical Care patient: Yes Total Critical Care Time (in minutes): 42 Critical Care Statement: The care of this patient involved high complexity decision making to prevent further life threatening deterioration of the patient 's condition and/or to evaluate & treat vital organ system(s) failure or risk of failure. - Discharge Referral Referred to [facility] No
[2017-12-02] MEDS ORDERED: ALBUTEROL SO4 0.083% IH SOL 2.5 MG/3 ML VIAL.NEB. NEB PRN (18:11)
[2017-12-02] MEDS: NOREPINEPHRINE BITARTRATE 4,000 MCG in DEXTROSE 5%-WATER - 496 ML IV SCH (18:36)
[2017-12-02] MEDS: ALBUTEROL SO4 2.5/IPRATROPIUM 0.5 INH SOL 3 ML VIAL.NEB. NEB SCH (21:30)
[2017-12-02] MEDS: CHLORHEXIDINE GLUCONATE 4% CLEANSER FOR DECOLONIZATION TP SCH (22:11)
[2017-12-02] MEDS: SENNOSIDES 8.8 MG/5 ML BULK BOTTLE PO SCH (22:12)
[2017-12-03] MEDS ORDERED: DEXTROSE 5%-WATER - 50 ML IVPB ONE ×2 (03:17→08:12)
[2017-12-03] MEDS ORDERED: PIPERACILLIN/TAZOBACTAM 3.375 GM VIAL IVPB ONE ×2 (03:17→08:12)
[2017-12-03] MEDS: PIPERACILLIN/TAZOB 3.375 GM 3.375 GM in DEXTROSE 5%-WATER - 50 ML IVPB SCH ×2 (03:19→08:15)
[2017-12-03] MEDS ORDERED: fentaNYL CITRATE 250 MCG/5 ML VIAL ONE ×3 (05:07→18:10)
[2017-12-03] MEDS: HEPARIN NA (PORCINE) 5,000 UNITS/ML 1ML VIAL SQ SCH ×2 (06:03→15:41)
[2017-12-03] MEDS: INSULIN SLIDING SCALE (NOVOLOG) 1 VIAL SQ SCH ×4 (06:04→23:30)
[2017-12-03 06:33] LABS: BASO % 0.2 % (0-2.0); EOS % 0.1 % (0-4.5); HEMATOCRIT 37.9 % (35.4-49); HEMOGLOBIN 11.6 GM/dL (11.7-16.9); LYMPH % 1.4 % (8-40); MCH 29.8 pg (25.7-33.7); MCHC 30.7 g/dl (32.0-35.9); MEAN PLT VOLUME 10.9 fl (7.5-11.1); MONO % 2.6 % (3.8-10.2); NEUT % 95.7 % (42.8-82.8); PLATELET COUNT 90 K/MM3 (134-434); WHITE BLOOD COUNT 11.8 K/mm3 (4.0-10.0)
[2017-12-03 07:05] LABS: ANION GAP 5 MMOL/L (8-16); CALCIUM 8.5 mg/dL (8.5-10.1); CHLORIDE 116 mmol/L (98-107); CO2 40 mmol/L (21-32); MAGNESIUM 3.7 mg/dL (1.8-2.4); PHOSPHOROUS 3.5 mg/dL (2.5-4.9); POTASSIUM 5.5 mmol/L (3.5-5.1)
[2017-12-03 07:25] LABS: BLOOD UREA NITROGEN 145 mg/dL (7-18); GLUCOSE,RANDOM 420 mg/dL (74-106); SODIUM 161 mmol/L (136-145)
[2017-12-03] MEDS ORDERED: CALCIUM GLUCONATE 10% - 1,000 MG/10 ML VIAL IVPUSH ONE (07:27)
[2017-12-03] MEDS ORDERED: ALBUTEROL SO4 0.083% IH SOL 2.5 MG/3 ML VIAL.NEB. NEB ONE (07:28)
[2017-12-03] MEDS ORDERED: INSULIN REGULAR HUMAN 100 UNITS/ML *VIAL IVPUSH ONE (07:28)
[2017-12-03] MEDS ORDERED: CALCIUM GLUCONATE 10% - 1,000 MG/10 ML VIAL ONE (07:51)
[2017-12-03] MEDS ORDERED: INSULIN REGULAR HUMAN 100 UNITS/ML *VIAL ONE (07:58)
[2017-12-03] MEDS ORDERED: SODIUM POLYSTYRENE SULFONATE 15 GM/60 ML BOTTLE GT ONE (08:14)
[2017-12-03] MEDS: TAMSULOSIN HCL 0.4 MG CAP PO SCH (08:18)
[2017-12-03] MEDS: ALBUTEROL SO4 2.5/IPRATROPIUM 0.5 INH SOL 3 ML VIAL.NEB. NEB SCH ×4 (08:20→21:00)
--- NOTE | 2017-12-03 09:03 | PN ---
Progress Note (short form) - Note Progress Note: Renal follow up for BURKE Pt seen and examined in the ICU remains on 55% FiO2 was on pressers overnight, now off urine output remains good Vital Signs Temperature 99.5 F 12/03/17 08:00 Pulse Rate 94 H 12/03/17 08:00 Respiratory Rate 28 H 12/03/17 08:27 Blood Pressure 98/59 L 12/03/17 08:00 O2 Sat by Pulse Oximetry (%) 100 12/03/17 08:25 Intake & Output 11/30/17 12/01/17 12/02/17 12/03/17 23:59 23:59 23:59 23:59 Intake Total 2123 1421.3 3340 2038 Output Total 1350 1650 2000 400 Balance 773 -228.7 1340 1638 Weight 76.612 kg 76.34 kg 71.923 kg 74.5 kg NAD sedated on vent via ET tube RRR Course Bs soft NT/ND no bladder distension No LE edema, clubbing or cyanosis CBC, BMP 12/03/17 05:30 12/03/17 05:30 Current Medications Acetaminophen (Tylenol -) 650 mg PO Q6H PRN PRN Reason: PAIN OR FEVER Last Admin: 11/30/17 17:29 Dose: 650 mg Albuterol Sulfate (Ventolin 0.083% Nebulizer Soln -) 1 amp NEB Q8H PRN PRN Reason: SHORT OF BREATH/WHEEZING Albuterol/Ipratropium (Duoneb -) 1 amp NEB RQID [facility] Last Admin: 12/03/17 08:20 Dose: 1 amp Chlorhexidine Gluconate (Hibiclens For Decolonization -) 1 applic TP HS [facility] Last Admin: 12/02/17 22:11 Dose: 1 applic Heparin Sodium (Porcine) (Heparin -) 5,000 unit SQ TID [facility] Last Admin: 12/03/17 06:03 Dose: 5,000 unit Propofol (Diprivan -) 1,000,000 mcg in 100 mls @ 4.79 mls/hr IVPB TITR [facility]; Protocol Last Admin: 12/02/17 22:12 Dose: 30 mcg/kg/min, 14.37 mls/hr Fentanyl 500 mcg/ Dextrose 100 mls @ 20 mls/hr IVPB TITR [facility]; Protocol Last Titration: 12/03/17 06:05 Dose: 100 mcg/hr, 20 mls/hr Piperacillin Sod/Tazobactam (Sod 3.375 gm/ Dextrose) 50 mls @ 100 mls/hr IVPB Q6H-IV [facility]; Protocol Last Admin: 12/03/17 08:15 Dose: 100 mls/hr Norepinephrine Bitartrate 4, (000 mcg/ Dextrose) 500 mls @ 15 mls/hr IV TITR [facility]; Protocol Last Titration: 12/03/17 04:00 Dose: 0 mcg/min, 0 mls/hr Sodium Chloride (1/2 Normal Saline) 1,000 mls @ 83 mls/hr IV ASDIR [facility] Sodium Chloride (Normal Saline -) 1,000 mls @ 1,000 mls/hr IV ASDIR STA Stop: 12/03/17 09:56 Insulin Aspart (Novolog Vial Sliding Scale -) 1 vial SQ ACHS [facility]; Protocol Last Admin: 12/03/17 06:04 Dose: 12 units Methylprednisolone Sodium Succinate (Solu-Medrol -) 30 mg IVPUSH BID [facility] Last Admin: 12/02/17 22:11 Dose: 30 mg Mupirocin (Bactroban Ointment (For Decolonization) -) 1 applic NS BID [facility] Stop: 12/04/17 21:59 Last Admin: 12/02/17 22:13 Dose: 1 applic Polyethylene Glycol (Miralax (For Daily Use) -) 17 gm NGT BID [facility] Last Admin: 12/02/17 22:12 Dose: 17 grams Senna (Senna Oral Solution -) 8.8 mg PO HS [facility] Last Admin: 12/02/17 22:12 Dose: 8.8 mg Tamsulosin HCl (Flomax -) 0.4 mg PO DAILY@0830 [facility] Last Admin: 12/03/17 08:18 Dose: 0.4 mg 67yo man with a PMH of HTN, DM, BPH and SLE. He was brought in to ER with worsening SOB and found to have respiratory failure from PNA/ARDS with BURKE and hypernatremia #BURKE secondary to renal hypoprofusion in setting of sepsis and intravascular volume depletion #Hypernatremia secondary to volume depletion/water deficit #Respiratory failure from ARDS/PNA #Sepsis #Hyperkalemia Urine studies consistent with preserved tubular function/pre-renal injury US performed results pending CVP remains low and pt does not appear ready to be weaned after discussion with ICU team will start cautious hydration with NS lili followed by 1/2 NS continue free water with tube feeds change feed to nephro kayexlalte given this am repeat bmp this evening continue vent support ICU management Thank you Will follow Jaswant Sparrow DO
[2017-12-03] MEDS ORDERED: SODIUM CHLORIDE 1,000 ML IV STA ×2 (09:33→18:11)
[2017-12-03] MEDS ORDERED: NOREPINEPHRINE BITARTRATE 4 MG/4 ML ML IV ONE ×2 (10:07→17:03)
[2017-12-03] MEDS: NOREPINEPHRINE BITARTRATE 4,000 MCG in DEXTROSE 5%-WATER - 496 ML IV SCH ×2 (10:12→18:20)
[2017-12-03] MEDS: POLYETHYLENE GLYCOL 3350 119 GM BTL NGT SCH ×2 (10:15→23:24)
[2017-12-03 10:35] LABS: ARTERIAL BLD GAS O2 SATURATION 98.4 % (90-98.9); ARTERIAL BLOOD GAS PCO2 52.5 mmHg (35-45); ARTERIAL BLOOD GAS pH 7.47 (7.35-7.45)
--- NOTE | 2017-12-03 10:44 | PN ---
Teaching Attending Note Name of Resident: Sri Contreras ATTENDING PHYSICIAN STATEMENT I saw and evaluated the patient. I reviewed the resident's note and discussed the case with the resident. I agree with the resident's findings and plan as documented. SUBJECTIVE: Patient seen and examined in the ICU. Remains intubated on AC Mode of vent, 55 % FiO2 and PEEP 8. No change in vent support. Currently on NE @ 3 mcq for hemodynamic support. CXR: No gross change in bilateral interstitial markings Gen: Intubated and sedated Heart: RRR Lung: Bilateral coarse crackles / rhonchi Abd: soft, nontender Ext: no edema ASSESSMENT AND PLAN: Acute on Chronic Hypoxic Respiratory Failure due to end stage ILD Pneumonia Sepsis Volume Overload Interstitial Lung Disease HTN DM BPH Acute on CKD - Wean vent parameters as tolerated - CVP monitoring - D/W Renal will start IVF - monitor urine output, creatinine - replete lytes - monitor CXR - ABX - medrol - inhaled bronchodilators - Will need further discussions with the patient/family regarding GOC given advanced/end stage ILD: will need Trach if family is agreeable and he is stable. - Continue ICU monitoring due to tenuous respiratory status Dr Javier Critical care time spent in reviewing chart, evaluating patient and formulating plan 35 min
[2017-12-03] MEDS: methylPREDNISolone NA SUCC 40 MG/1 ML VIAL IVPUSH SCH (10:54)
[2017-12-03 10:56] LABS: ANISOCYTOSIS 1+; MACROCYTOSIS 0; PLATELET ESTIMATE DECREASED
[2017-12-03] MEDS: MUPIROCIN 2% TOPICAL OINTMENT FOR DECOLONIZATION NS SCH ×2 (10:58→21:27)
[2017-12-03] MEDS: PROPOFOL 1,000,000 MCG/100 ML VIAL IVPB SCH ×2 (11:44→23:16)
[2017-12-03] MEDS: FENTANYL INJECTION 500 MCG in DEXTROSE 5%-WATER - 90 ML IVPB SCH (11:45)
--- NOTE | 2017-12-03 13:22 | PN ---
Physical Exam: SUBJECTIVE: Patient seen and examined; still intubated; mechanically ventilated on levophed 3mcgs; not able to wean at this point. OBJECTIVE: Vital Signs Period Temp Pulse Resp BP Sys/Paul Pulse Ox Last 24 Hr 99.3 F-99.9 F 55-94 24-28 76-114/42-64 97-100 GENERAL: The patient is intubated and sedated EYES: PERRL, extraocular movements intact, sclera anicteric, conjunctiva clear. No ptosis. LUNGS: bilateral crackles HEART: Regular rate and rhythm, S1, S2 without murmur, rub or gallop. ABDOMEN: Soft, nontender, nondistended, normoactive bowel sounds, no guarding, no rebound, no hepatosplenomegaly, no masses. EXTREMITIES: 2+ pulses, warm, well-perfused, no edema. NEUROLOGICAL: sedated; SKIN: Warm, dry, normal turgor, no rashes or lesions noted Laboratory Results - last 24 hr 12/02/17 12/02/17 12/02/17 07:10 11:58 12:30 WBC RBC Hgb Hct MCV MCH MCHC RDW Plt Count MPV Absolute Neuts (auto) Neutrophils % Neutrophils % (Manual) 91.0 H Band Neutrophils % 2.0 Lymphocytes % Lymphocytes % (Manual) 6.0 L D Monocytes % Monocytes % (Manual) 1 L D Eosinophils % Eosinophils % (Manual) 0.0 D Basophils % Basophils % (Manual) 0.0 Myelocytes % (Man) Promyelocytes % (Man) Blast Cells % (Manual) Nucleated RBC % Metamyelocytes Hypochromia Platelet Estimate Decreased Platelet Comment No clumping noted Polychromasia Poikilocytosis Anisocytosis Microcytosis Macrocytosis Puncture Site ABG pH ABG pCO2 at Pt Temp ABG pO2 at Pt Temp ABG HCO3 ABG O2 Sat (Measured) ABG O2 Content ABG Base Excess Bassem Test Oxygen Flow Rate Vent Mode Vent Rate PEEP Sodium Potassium Chloride Carbon Dioxide Anion Gap BUN Creatinine Creat Clearance w eGFR POC Glucometer [phone] Random Glucose Calcium Phosphorus Magnesium LD Total Urine Color Urine Appearance Urine pH Ur Specific [place] Urine Protein Urine Glucose (UA) Urine Ketones Urine Blood Urine Nitrite Urine Bilirubin Urine Urobilinogen Ur Leukocyte Esterase Urine WBC (Auto) Urine RBC (Auto) Urine Bacteria Urine Yeast U Random Total Protein 19 H Ur Random Sodium < 18 L Ur Random Urea Nitrogn Urine Creatinine 60.0 H 12/02/17 12/02/17 12/02/17 12:30 12:30 12:30 WBC RBC Hgb Hct MCV MCH MCHC RDW Plt Count MPV Absolute Neuts (auto) Neutrophils % Neutrophils % (Manual) Band Neutrophils % Lymphocytes % Lymphocytes % (Manual) Monocytes % Monocytes % (Manual) Eosinophils % Eosinophils % (Manual) Basophils % Basophils % (Manual) Myelocytes % (Man) Promyelocytes % (Man) Blast Cells % (Manual) Nucleated RBC % Metamyelocytes Hypochromia Platelet Estimate Platelet Comment Polychromasia Poikilocytosis Anisocytosis Microcytosis Macrocytosis Puncture Site ABG pH ABG pCO2 at Pt Temp ABG pO2 at Pt Temp ABG HCO3 ABG O2 Sat (Measured) ABG O2 Content ABG Base Excess Bassem Test Oxygen Flow Rate Vent Mode Vent Rate PEEP Sodium Potassium Chloride Carbon Dioxide Anion Gap BUN Creatinine Creat Clearance w eGFR POC Glucometer Random Glucose Calcium Phosphorus Magnesium LD Total Urine Color Ltyellow Urine Appearance Clear Urine pH 5.0 Ur Specific [place] 1.018 Urine Protein Negative Urine Glucose (UA) Negative Urine Ketones Negative Urine Blood 1+ H Urine Nitrite Negative Urine Bilirubin Negative Urine Urobilinogen Negative Ur Leukocyte Esterase 1+ H Urine WBC (Auto) 3 Urine RBC (Auto) 11 Urine Bacteria Rare Urine Yeast Moderate U Random Total Protein Cancelled Ur Random Sodium Ur Random Urea Nitrogn Urine Creatinine Cancelled 12/02/17 12/02/17 12/02/17 12:30 16:38 17:00 WBC RBC Hgb Hct MCV MCH MCHC RDW Plt Count MPV Absolute Neuts (auto) Neutrophils % Neutrophils % (Manual) Band Neutrophils % Lymphocytes % Lymphocytes % (Manual) Monocytes % Monocytes % (Manual) Eosinophils % Eosinophils % (Manual) Basophils % Basophils % (Manual) Myelocytes % (Man) Promyelocytes % (Man) Blast Cells % (Manual) Nucleated RBC % Metamyelocytes Hypochromia Platelet Estimate Platelet Comment Polychromasia Poikilocytosis Anisocytosis Microcytosis Macrocytosis Puncture Site ABG pH ABG pCO2 at Pt Temp ABG pO2 at Pt Temp ABG HCO3 ABG O2 Sat (Measured) ABG O2 Content ABG Base Excess Bassem Test Oxygen Flow Rate Vent Mode Vent Rate PEEP Sodium Potassium Chloride Carbon Dioxide Anion Gap BUN Creatinine Creat Clearance w eGFR POC Glucometer [phone] Random Glucose Calcium Phosphorus Magnesium LD Total 264 H Urine Color Urine Appearance Urine pH Ur Specific [place] Urine Protein Urine Glucose (UA) Urine Ketones Urine Blood Urine Nitrite Urine Bilirubin Urine Urobilinogen Ur Leukocyte Esterase Urine WBC (Auto) Urine RBC (Auto) Urine Bacteria Urine Yeast U Random Total Protein Ur Random Sodium Ur Random Urea Nitrogn 962 Urine Creatinine 12/03/17 12/03/17 12/03/17 05:30 05:30 05:30 WBC 11.8 H RBC 3.90 L Hgb 11.6 L Hct 37.9 MCV 97.0 H MCH 29.8 MCHC 30.7 L RDW 16.0 H Plt Count 90 L MPV 10.9 Absolute Neuts (auto) 11.3 H Neutrophils % 95.7 H Neutrophils % (Manual) 95.9 H Band Neutrophils % 0.0 Lymphocytes % 1.4 L D Lymphocytes % (Manual) 2.1 L D Monocytes % 2.6 L Monocytes % (Manual) 0 L D Eosinophils % 0.1 D Eosinophils % (Manual) 1.0 D Basophils % 0.2 Basophils % (Manual) 0.0 Myelocytes % (Man) 0 Promyelocytes % (Man) 0 Blast Cells % (Manual) 0 Nucleated RBC % 0 Metamyelocytes 0 Hypochromia 0 Platelet Estimate Decreased Platelet Comment Polychromasia 1+ Poikilocytosis 0 Anisocytosis 1+ Microcytosis 1+ Macrocytosis 0 Puncture Site ABG pH ABG pCO2 at Pt Temp ABG pO2 at Pt Temp ABG HCO3 ABG O2 Sat (Measured) ABG O2 Content ABG Base Excess Bassem Test Oxygen Flow Rate Vent Mode Vent Rate PEEP Sodium 161 H* Potassium 5.5 H Chloride 116 H Carbon Dioxide 40 H Anion Gap 5 L BUN 145 H* Creatinine 2.0 H Creat Clearance w eGFR 33.29 POC Glucometer Random Glucose 420 H* Calcium 8.5 Phosphorus 3.5 Magnesium 3.7 H LD Total Urine Color Urine Appearance Urine pH Ur Specific [place] Urine Protein Urine Glucose (UA) Urine Ketones Urine Blood Urine Nitrite Urine Bilirubin Urine Urobilinogen Ur Leukocyte Esterase Urine WBC (Auto) Urine RBC (Auto) Urine Bacteria Urine Yeast U Random Total Protein 17 H Ur Random Sodium 20 L Ur Random Urea Nitrogn Urine Creatinine 43.0 H 12/03/17 12/03/17 12/03/17 05:30 05:30 10:26 WBC RBC Hgb Hct MCV MCH MCHC RDW Plt Count MPV Absolute Neuts (auto) Neutrophils % Neutrophils % (Manual) Band Neutrophils % Lymphocytes % Lymphocytes % (Manual) Monocytes % Monocytes % (Manual) Eosinophils % Eosinophils % (Manual) Basophils % Basophils % (Manual) Myelocytes % (Man) Promyelocytes % (Man) Blast Cells % (Manual) Nucleated RBC % Metamyelocytes Hypochromia Platelet Estimate Platelet Comment Polychromasia Poikilocytosis Anisocytosis Microcytosis Macrocytosis Puncture Site Right radial ABG pH 7.47 H ABG pCO2 at Pt Temp 52.5 H D ABG pO2 at Pt Temp 115.0 H D ABG HCO3 37.6 H ABG O2 Sat (Measured) 98.4 ABG O2 Content 18.0 ABG Base Excess 12.0 H Bassem Test No Result Required. Oxygen Flow Rate 55 Vent Mode Ac Vent Rate 28 PEEP 8.0 Sodium Potassium Chloride Carbon Dioxide Anion Gap BUN Creatinine Creat Clearance w eGFR POC Glucometer Random Glucose Calcium Phosphorus Magnesium LD Total Urine Color Urine Appearance Urine pH Ur Specific [place] Urine Protein Cancelled Urine Glucose (UA) Urine Ketones Urine Blood Urine Nitrite Urine Bilirubin Urine Urobilinogen Ur Leukocyte Esterase Urine WBC (Auto) Urine RBC (Auto) Urine Bacteria Urine Yeast U Random Total Protein Ur Random Sodium Ur Random Urea Nitrogn Urine Creatinine Cancelled 12/03/17 12:13 WBC RBC Hgb Hct MCV MCH MCHC RDW Plt Count MPV Absolute Neuts (auto) Neutrophils % Neutrophils % (Manual) Band Neutrophils % Lymphocytes % Lymphocytes % (Manual) Monocytes % Monocytes % (Manual) Eosinophils % Eosinophils % (Manual) Basophils % Basophils % (Manual) Myelocytes % (Man) Promyelocytes % (Man) Blast Cells % (Manual) Nucleated RBC % Metamyelocytes Hypochromia Platelet Estimate Platelet Comment Polychromasia Poikilocytosis Anisocytosis Microcytosis Macrocytosis Puncture Site ABG pH ABG pCO2 at Pt Temp ABG pO2 at Pt Temp ABG HCO3 ABG O2 Sat (Measured) ABG O2 Content ABG Base Excess Bassem Test Oxygen Flow Rate Vent Mode Vent Rate PEEP Sodium Potassium Chloride Carbon Dioxide Anion Gap BUN Creatinine Creat Clearance w eGFR POC Glucometer [phone] Random Glucose Calcium Phosphorus Magnesium LD Total Urine Color Urine Appearance Urine pH Ur Specific [place] Urine Protein Urine Glucose (UA) Urine Ketones Urine Blood Urine Nitrite Urine Bilirubin Urine Urobilinogen Ur Leukocyte Esterase Urine WBC (Auto) Urine RBC (Auto) Urine Bacteria Urine Yeast U Random Total Protein Ur Random Sodium Ur Random Urea Nitrogn Urine Creatinine Active Medications Generic Name Dose Route Start Last Admin Trade Name Freq PRN Reason Stop Dose Admin Acetaminophen 650 mg 11/21/17 13:23 11/30/17 17:29 Tylenol - PO 650 mg Q6H PRN Administration PAIN OR FEVER Albuterol Sulfate 1 amp 12/02/17 18:11 Ventolin 0.083% Nebulizer Soln - NEB Q8H PRN SHORT OF BREATH/WHEEZING Albuterol/Ipratropium 1 amp 12/02/17 20:00 12/03/17 12:23 Duoneb - NEB 1 amp RQID VANITA Administration Chlorhexidine Gluconate 1 applic 11/28/17 22:00 12/02/17 22:11 Hibiclens For Decolonization - TP 1 applic HS VANITA Administration Heparin Sodium (Porcine) 5,000 unit 11/26/17 06:00 12/03/17 06:03 Heparin - SQ 5,000 unit TID VANITA Administration Propofol 1,000,000 mcg in 100 mls @ 4.79 mls/hr 11/25/17 21:15 12/03/17 11:44 Diprivan - IVPB 30 mcg/kg/min TITR VANITA 14.37 mls/hr Administration Protocol 10 MCG/KG/MIN Fentanyl 500 mcg/ Dextrose 100 mls @ 20 mls/hr 11/26/17 23:30 12/03/17 11:45 IVPB 100 mcg/hr TITR VANITA 20 mls/hr Administration Protocol 100 MCG/HR Piperacillin Sod/Tazobactam 50 mls @ 100 mls/hr 11/30/17 15:00 12/03/17 08:15 Sod 3.375 gm/ Dextrose IVPB 100 mls/hr Q6H-IV VANITA Administration Protocol Norepinephrine Bitartrate 4, 500 mls @ 15 mls/hr 12/02/17 17:30 12/03/17 10: 12 000 mcg/ Dextrose IV 2 mcg/min TITR VANITA 15 mls/hr Administration Protocol 2 MCG/MIN Sodium Chloride 1,000 mls @ 83 mls/hr 12/03/17 14:30 1/2 Normal Saline IV ASDIR VANITA Sodium Chloride 1,000 mls @ 200 mls/hr 12/03/17 09:33 12/03/17 09:34 Normal Saline - IV 12/03/17 14:32 200 mls/hr ASDIR STA Administration Insulin Aspart 1 vial 11/29/17 17:51 12/03/17 12:33 Novolog Vial Sliding Scale - SQ 10 units ACHS VANITA Administration Protocol Methylprednisolone Sodium Succinate 30 mg 12/02/17 22:00 12/03/17 10:54 Solu-Medrol - IVPUSH 30 mg BID VANITA Administration Mupirocin 1 applic 11/29/17 22:00 12/03/17 10:58 Bactroban Ointment (For Decolonization) - NS 12/04/17 21:59 1 applic BID VANITA Administration Polyethylene Glycol 17 gm 12/01/17 10:00 12/02/17 22:12 Miralax (For Daily Use) - NGT 17 grams BID VANITA Administration Senna 8.8 mg 12/01/17 22:00 12/02/17 22:12 Senna Oral Solution - PO 8.8 mg HS VANITA Administration Tamsulosin HCl 0.4 mg 11/22/17 08:30 12/03/17 08:18 Flomax - PO 0.4 mg DAILY@0830 VANITA Administration ASSESSMENT/PLAN: This is a 67 year old male with severe lung disease; with acute on chronic respiratory failure sec to ARDS/PNA. #Sepsis PNA #ARDS #Acute on chronic hypoxic/hypercapniec respiratory failure #hypernatremia #BURKE #hyperkalemia #BPH -Intubated and sedated not able to wean today; sedation vacation once tolerable to wean -decreased FiO2 as tolerated, now at 55%; PEEP at 8; adjust for ARDS -monitor CVP; -keep MAP >65%;titrate pressers -O2 88-92 -bronchodilators -will give IV 1/2 NS bolus; free water for hypernatremia -hyperkalemia; insulin; ca gluc, albuterol , kayexelate -monitor for fluid overload; lasix prn -will switch feeds to nepro -monitor I/Os, creatinine -IV antibiotics -GI/DVT ppl Visit type - Emergency Visit Emergency Visit: Yes ED Registration Date: 11/21/17 Care time: The patient presented to the Emergency Department on the above date and was hospitalized for further evaluation of their emergent condition. - New Patient This patient is new to me today: Yes Date on this admission: 12/03/17 - Critical Care Critical Care patient: Yes Total Critical Care Time (in minutes): 45 Critical Care Statement: The care of this patient involved high complexity decision making to prevent further life threatening deterioration of the patient 's condition and/or to evaluate & treat vital organ system(s) failure or risk of failure.
[2017-12-03] MEDS ORDERED: dilTIAZem HCL 50 MG/10 ML - 10 ML VIAL IVPUSH ONE (13:46)
[2017-12-03] MEDS ORDERED: dilTIAZem HCL 125 MG/25 ML - 25 ML VIAL ONE (13:52)
[2017-12-03] MEDS ORDERED: SODIUM CHLORIDE 0.45% 1,000 ML IV SCH (14:30)
[2017-12-03] MEDS ORDERED: MIDAZOLAM HCL 2 MG/2 ML SINGLE DOSE VIAL IVPUSH PRN (14:31)
[2017-12-03] MEDS: FUROSEMIDE 40 MG/4 ML INJECTABLE VIAL IVPUSH SCH (14:53)
--- NOTE | 2017-12-03 14:53 | PN ---
Progress Note, Physician History of Present Illness: Pt is intubated/sedated, restarted on Norepinephrine. Tmax 100.1. - Current Medication List Current Medications: Active Medications Acetaminophen (Tylenol -) 650 mg PO Q6H PRN PRN Reason: PAIN OR FEVER Last Admin: 11/30/17 17:29 Dose: 650 mg Albuterol Sulfate (Ventolin 0.083% Nebulizer Soln -) 1 amp NEB Q8H PRN PRN Reason: SHORT OF BREATH/WHEEZING Albuterol/Ipratropium (Duoneb -) 1 amp NEB RQID VANITA Last Admin: 12/03/17 12:23 Dose: 1 amp Chlorhexidine Gluconate (Hibiclens For Decolonization -) 1 applic TP HS VANITA Last Admin: 12/02/17 22:11 Dose: 1 applic Furosemide (Lasix Injection -) 40 mg IVPUSH DAILY VANITA Heparin Sodium (Porcine) (Heparin -) 5,000 unit SQ TID VANITA Last Admin: 12/03/17 06:03 Dose: 5,000 unit Propofol (Diprivan -) 1,000,000 mcg in 100 mls @ 4.79 mls/hr IVPB TITR VANITA; Protocol Last Admin: 12/03/17 11:44 Dose: 30 mcg/kg/min, 14.37 mls/hr Fentanyl 500 mcg/ Dextrose 100 mls @ 20 mls/hr IVPB TITR VANITA; Protocol Last Admin: 12/03/17 11:45 Dose: 100 mcg/hr, 20 mls/hr Piperacillin Sod/Tazobactam (Sod 3.375 gm/ Dextrose) 50 mls @ 100 mls/hr IVPB Q6H-IV VANITA; Protocol Last Admin: 12/03/17 08:15 Dose: 100 mls/hr Norepinephrine Bitartrate 4, (000 mcg/ Dextrose) 500 mls @ 15 mls/hr IV TITR VANITA; Protocol Last Admin: 12/03/17 10:12 Dose: 2 mcg/min, 15 mls/hr Sodium Chloride (1/2 Normal Saline) 1,000 mls @ 83 mls/hr IV ASDIR VANITA Insulin Aspart (Novolog Vial Sliding Scale -) 1 vial SQ ACHS VANITA; Protocol Last Admin: 12/03/17 12:33 Dose: 10 units Methylprednisolone Sodium Succinate (Solu-Medrol -) 30 mg IVPUSH BID VANITA Last Admin: 12/03/17 10:54 Dose: 30 mg Midazolam HCl (Versed -) 2 mg IVPUSH Q2H PRN PRN Reason: TACHYCARDIA Mupirocin (Bactroban Ointment (For Decolonization) -) 1 applic NS BID [facility] Stop: 12/04/17 21:59 Last Admin: 12/03/17 10:58 Dose: 1 applic Polyethylene Glycol (Miralax (For Daily Use) -) 17 gm NGT BID [facility] Last Admin: 12/02/17 22:12 Dose: 17 grams Senna (Senna Oral Solution -) 8.8 mg PO HS [facility] Last Admin: 12/02/17 22:12 Dose: 8.8 mg Tamsulosin HCl (Flomax -) 0.4 mg PO DAILY@0830 [facility] Last Admin: 12/03/17 08:18 Dose: 0.4 mg - Objective Vital Signs: Vital Signs Temperature 100.1 F H 12/03/17 14:00 Pulse Rate 142 H 12/03/17 14:00 Respiratory Rate 24 H 12/03/17 14:00 Blood Pressure 86/59 L 12/03/17 14:00 O2 Sat by Pulse Oximetry (%) 100 12/03/17 08:25 Constitutional: Yes: Other (on sedation) Cardiovascular: Yes: Tachycardia Respiratory: Yes: Mechanically Ventilated Gastrointestinal: Yes: Normal Bowel Sounds, Soft Genitourinary: Yes: Bates Present Neurological: Yes: Other (on sedation) Labs: CBC, BMP 12/03/17 05:30 12/03/17 05:30 INR, PTT INR 1.11 (0.83-1.09) H 11/21/17 11:26 - ....Imaging Chest X-ray: Report Reviewed Problem List - Problems (1) BURKE (acute kidney injury) Code(s): N17.9 - ACUTE KIDNEY FAILURE, UNSPECIFIED (2) Acute and chronic respiratory failure with hypoxia Code(s): J96.21 - ACUTE AND CHRONIC RESPIRATORY FAILURE WITH HYPOXIA (3) CKD (chronic kidney disease) Code(s): N18.9 - CHRONIC KIDNEY DISEASE, UNSPECIFIED Qualifiers: Chronic kidney disease stage: stage 2 (mild) Qualified Code(s): N18.2 - Chronic kidney disease, stage 2 (mild) (4) Hypernatremia Code(s): E87.0 - HYPEROSMOLALITY AND HYPERNATREMIA (5) Pneumonia Code(s): J18.9 - PNEUMONIA, UNSPECIFIED ORGANISM Qualifiers: Lung location: unspecified part of lung (6) SLE (systemic lupus erythematosus) Code(s): M32.9 - SYSTEMIC LUPUS ERYTHEMATOSUS, UNSPECIFIED Qualifiers: Systemic lupus erythematosus organ involvement: unspecified (7) Sepsis Code(s): A41.9 - SEPSIS, UNSPECIFIED ORGANISM Qualifiers: Sepsis type: sepsis due to unspecified organism Qualified Code(s): A41.9 - Sepsis, unspecified organism Assessment/Plan Respiratory Failure Pneumonia Sepsis Interstitial Lung Disease BURKE HTN DM BPH -- will d/c Zosyn, start Meropenem -- repeat blood/urine cultures -- latest resp cultures no growth -- continue monitor temp -- pt is hypotensive on Norepinephrine, intubated/sedated -- ICU management
--- NOTE | 2017-12-03 15:05 | PN ---
Progress Note (short form) - Note Progress Note: Patient in sinus tach; HR 170s; hypotensive; MAP <65 -5mg IV cardizem; transient decreas in HR; -increase levophed -increase propofol -add versed as needed -abg -cxr -will stop IV due to potential overlaod -stat one time IV lasix 40mg
[2017-12-03] MEDS ORDERED: PT OWN MED DRAWER 7, Y5N ONE ×4 (15:21→23:08)
[2017-12-03 15:51] LABS: ARTERIAL BLD GAS O2 SATURATION 95.1 % (90-98.9); ARTERIAL BLOOD GAS BASE EXCESS 9.5 meq/l (-2-2); ARTERIAL BLOOD GAS PO2 86.4 mmHg (80-100); ARTERIAL BLOOD GAS pH 7.35 (7.35-7.45)
[2017-12-03] MEDS: ACETAMINOPHEN 325 MG TABLET (FP) PO PRN (15:51)
[2017-12-03 15:58] LABS: ARTERIAL BLOOD GAS PCO2 69.9 mmHg (35-45)
[2017-12-03] MEDS ORDERED: MIDAZOLAM 100 MG in SODIUM CHLORIDE 100 ML IVPB SCH (16:30)
[2017-12-03] MEDS ORDERED: AMIODARONE HCL 150 MG/3 ML VIAL IVPUSH ONE (16:35)
[2017-12-03] MEDS ORDERED: HEPARIN NA (PORCINE) 5,000 UNITS/ML 1ML VIAL IVPUSH PRN ×2 (16:36)
[2017-12-03] MEDS ORDERED: HEPARIN - 25,000 UNIT in SODIUM CHLORIDE 495 ML IV SCH (16:45)
--- NOTE | 2017-12-03 16:50 | PN ---
Progress Note, Physician History of Present Illness: intubated sedated - Current Medication List Current Medications: Active Medications Acetaminophen (Tylenol -) 650 mg PO Q6H PRN PRN Reason: PAIN OR FEVER Last Admin: 12/03/17 15:51 Dose: 650 mg Albuterol Sulfate (Ventolin 0.083% Nebulizer Soln -) 1 amp NEB Q8H PRN PRN Reason: SHORT OF BREATH/WHEEZING Albuterol/Ipratropium (Duoneb -) 1 amp NEB RQID VANITA Last Admin: 12/03/17 15:58 Dose: 1 amp Chlorhexidine Gluconate (Hibiclens For Decolonization -) 1 applic TP HS VANITA Last Admin: 12/02/17 22:11 Dose: 1 applic Furosemide (Lasix Injection -) 40 mg IVPUSH DAILY VANITA Last Admin: 12/03/17 14:53 Dose: 40 mg Heparin Sodium (Porcine) (Heparin -) 1,000 unit IVPUSH PRN PRN PRN Reason: Heparin Heparin Sodium (Porcine) (Heparin -) 5,000 unit IVPUSH PRN PRN PRN Reason: Heparin Propofol (Diprivan -) 1,000,000 mcg in 100 mls @ 4.79 mls/hr IVPB TITR VANITA; Protocol Last Titration: 12/03/17 14:00 Dose: 40 mcg/kg/min, 19.16 mls/hr Fentanyl 500 mcg/ Dextrose 100 mls @ 20 mls/hr IVPB TITR VANITA; Protocol Last Admin: 12/03/17 11:45 Dose: 100 mcg/hr, 20 mls/hr Norepinephrine Bitartrate 4, (000 mcg/ Dextrose) 500 mls @ 15 mls/hr IV TITR VANITA; Protocol Last Titration: 12/03/17 16:01 Dose: 8 mcg/min, 60 mls/hr Meropenem 1 gm/ Dextrose 100 mls @ 200 mls/hr IVPB BID VANITA Midazolam HCl 100 mg/ Sodium (Chloride) 100 mls @ 1 mls/hr IVPB TITR VANITA; Protocol Heparin Sodium (Porcine) 25, (000 unit/ Sodium Chloride) 500 mls @ 20 mls/hr IV TITR VANITA; Protocol Insulin Aspart (Novolog Vial Sliding Scale -) 1 vial SQ ACHS VANITA; Protocol Last Admin: 12/03/17 12:33 Dose: 10 units Methylprednisolone Sodium Succinate (Solu-Medrol -) 30 mg IVPUSH BID [facility] Last Admin: 12/03/17 10:54 Dose: 30 mg Midazolam HCl (Versed -) 2 mg IVPUSH Q2H PRN PRN Reason: TACHYCARDIA Last Admin: 12/03/17 15:15 Dose: 2 mg Mupirocin (Bactroban Ointment (For Decolonization) -) 1 applic NS BID [facility] Stop: 12/04/17 21:59 Last Admin: 12/03/17 10:58 Dose: 1 applic Polyethylene Glycol (Miralax (For Daily Use) -) 17 gm NGT BID [facility] Last Admin: 12/03/17 10:15 Dose: 17 grams Senna (Senna Oral Solution -) 8.8 mg PO HS [facility] Last Admin: 12/02/17 22:12 Dose: 8.8 mg Tamsulosin HCl (Flomax -) 0.4 mg PO DAILY@0830 [facility] Last Admin: 12/03/17 08:18 Dose: 0.4 mg - Objective Vital Signs: Vital Signs Temperature 100.2 F H 12/03/17 15:52 Pulse Rate 142 H 12/03/17 14:00 Respiratory Rate 25 H 12/03/17 15:54 Blood Pressure 86/59 L 12/03/17 14:00 O2 Sat by Pulse Oximetry (%) 100 12/03/17 08:25 Constitutional: Yes: No Distress HENT: Yes: Atraumatic Neck: Yes: Supple Cardiovascular: Yes: Regular Rate and Rhythm Respiratory: Yes: CTA Bilaterally Gastrointestinal: Yes: Normal Bowel Sounds Extremities: Yes: WNL Edema: Yes Edema: LLE: Trace, RLE: Trace Peripheral Pulses WNL: Yes Neurological: Yes: Other (sedated) Labs: CBC, BMP 12/03/17 05:30 12/03/17 05:30 INR, PTT INR 1.11 (0.83-1.09) H 11/21/17 11:26 Problem List - Problems (1) Acute respiratory failure with hypoxia Assessment/Plan: intubated sedated on iv steroids iv abx pulmonary on board Code(s): J96.01 - ACUTE RESPIRATORY FAILURE WITH HYPOXIA (2) Pneumonia Assessment/Plan: on iv abx duo nebs id on board Code(s): J18.9 - PNEUMONIA, UNSPECIFIED ORGANISM Qualifiers: Lung location: unspecified part of lung (3) SLE (systemic lupus erythematosus) Code(s): M32.9 - SYSTEMIC LUPUS ERYTHEMATOSUS, UNSPECIFIED Qualifiers: Systemic lupus erythematosus organ involvement: unspecified (4) Sepsis Assessment/Plan: on iv abx ivf if needed bcxs and u cxs noted Code(s): A41.9 - SEPSIS, UNSPECIFIED ORGANISM Qualifiers: Sepsis type: sepsis due to unspecified organism Qualified Code(s): A41.9 - Sepsis, unspecified organism (5) ILD (interstitial lung disease) Code(s): J84.9 - INTERSTITIAL PULMONARY DISEASE, UNSPECIFIED Assessment/Plan icu cc time 35 min
[2017-12-03] MEDS: VASOPRESSIN 50 UNITS in SODIUM CHLORIDE 97.5 ML IVPB SCH (17:00)
[2017-12-03] MEDS ORDERED: VASOPRESSIN 20 UNITS/ML VIAL IV ONE (17:03)
--- NOTE | 2017-12-03 18:11 | PROC ---
Procedure Note Procedure: Anesthesiology Arterial Line Insertion Procedure: Arterial Line Indication: Hemodynamic monitoring Technique: After prep to left wrist with Chloraprep, initial insertion performed by resident under my supervision. For 2nd attempt, I performed the procedure myself. Left radial pulse palpated. #20g Arrow arterial catheter inserted via Seldinger technique; guidewire passed smoothly into vessel after pulsatile bloodflow noted in catheter housing. Catheter advanced smoothly. Transducer attached. Appropriate waveform noted on monitor. Dressing placed securely over site. No apparent hematoma or complications noted. Total time spent (teaching/supervision+procedure): 30min
[2017-12-03] MEDS: MEROPENEM 1 GM in DEXTROSE 5%-WATER 100 ML IVPB SCH ×2 (18:19→23:13)
[2017-12-03] MEDS ORDERED: NOREPINEPHRINE BITARTRATE 8,000 MCG in DEXTROSE 5%-WATER - 492 ML IV SCH (18:20)
[2017-12-03 18:22] LABS: HEMATOCRIT 41.4 % (35.4-49); HEMOGLOBIN 12.3 GM/dL (11.7-16.9); MCH 30.2 pg (25.7-33.7); MCHC 29.8 g/dl (32.0-35.9); MEAN PLT VOLUME 11.7 fl (7.5-11.1); RBC 4.08 M/mm3 (4.00-5.60); RDW 16.6 % (11.9-15.9)
[2017-12-03 18:30] LABS: WHITE BLOOD COUNT 33.3 K/mm3 (4.0-10.0)
[2017-12-03 18:31] LABS: MEAN CELL VOLUME 101.4 fl (80-96); PLATELET COUNT 147 K/MM3 (134-434)
[2017-12-03 19:10] LABS: INR 0.99 (0.83-1.09); PROTHROMBIN TIME (PATIENT) 11.7 SEC (9.7-13.0)
[2017-12-03 19:13] LABS: ACTIVATED PTT 29.8 SECONDS (25.2-36.5)
[2017-12-03 20:05] LABS: ANION GAP 2 MMOL/L (8-16); CHLORIDE 118 mmol/L (98-107); CO2 37 mmol/L (21-32); CREATININE 2.1 mg/dL (0.55-1.3); SODIUM 157 mmol/L (136-145)
[2017-12-03 20:06] LABS: CALCIUM 8.2 mg/dL (8.5-10.1)
[2017-12-03 20:07] LABS: BLOOD UREA NITROGEN 134 mg/dL (7-18); GLUCOSE,RANDOM 445 mg/dL (74-106)
[2017-12-03] MEDS ORDERED: INSULIN (NOVOLOG) ASPART 100 UNITS/ML 10ML VIAL SQ ONE (20:30)
[2017-12-03] MEDS: CHLORHEXIDINE GLUCONATE 4% CLEANSER FOR DECOLONIZATION TP SCH (21:29)
[2017-12-03] MEDS ORDERED: VANCOMYCIN 1 GRAM (PRE-DOCKED) 1,000 MG/250 ML BAG IVPB ONE (21:45)
[2017-12-03] MEDS ORDERED: INSULIN (LEVEMIR) 100 UNITS/ML UNITS SQ SCH (22:00)
[2017-12-03] MEDS ORDERED: ACETAMINOPHEN 1000 MG/100 ML VIAL (NON FORMULARY) IVPB ONE (22:03)
[2017-12-03] MEDS ORDERED: FLUCONAZOLE 400 MG/NS 200 ML IVPB ONE (22:08)
[2017-12-03] MEDS ORDERED: DIGOXIN 0.5 MG/2 ML AMPUL IVPUSH SCH (22:30)
[2017-12-03] MEDS ORDERED: AMIODARONE IN DEXTROSE,ISO-OSM 360 MG/200 ML BAG IVPB SCH (22:30)
[2017-12-03] MEDS ORDERED: HYDROCORTISONE SOD SUCCINATE 100 MG/2 ML VIAL IVPB SCH (22:45)
[2017-12-03 23:09] LABS: ARTERIAL BLOOD GAS BASE EXCESS 9.6 meq/l (-2-2); ARTERIAL BLOOD GAS PO2 75.5 mmHg (80-100); ARTERIAL BLOOD GAS pH 7.35 (7.35-7.45)
[2017-12-03 23:10] LABS: ALLENS TEST POSITIVE
[2017-12-03 23:11] LABS: ARTERIAL BLOOD GAS PCO2 69.6 mmHg (35-45)
[2017-12-03] MEDS: FLUDROCORTISONE ACETATE 0.1 MG TABLET (FP) PO SCH (23:18)
[2017-12-03] MEDS: SENNOSIDES 8.8 MG/5 ML BULK BOTTLE PO SCH (23:24)
[2017-12-04] MEDS: INSULIN SLIDING SCALE (NOVOLOG) 1 VIAL SQ SCH ×6 (00:53→21:43)
[2017-12-04] MEDS: AMIODARONE IN DEXTROSE,ISO-OSM 360 MG/200 ML BAG IVPB SCH ×3 (04:20→18:25)
[2017-12-04] MEDS: VASOPRESSIN 50 UNITS in SODIUM CHLORIDE 97.5 ML IVPB SCH (04:26)
[2017-12-04] MEDS ORDERED: fentaNYL CITRATE 250 MCG/5 ML VIAL ONE ×2 (05:21→11:42)
[2017-12-04] MEDS: HYDROCORTISONE SOD SUCCINATE 100 MG/2 ML VIAL IVPB SCH ×2 (06:32→10:00)
[2017-12-04] MEDS: INSULIN (LEVEMIR) 100 UNITS/ML UNITS SQ SCH ×2 (06:33→21:40)
[2017-12-04] MEDS: PROPOFOL 1,000,000 MCG/100 ML VIAL IVPB SCH ×4 (06:34→22:13)
[2017-12-04] MEDS: FENTANYL INJECTION 500 MCG in DEXTROSE 5%-WATER - 90 ML IVPB SCH (06:38)
[2017-12-04 06:45] LABS: BASO % 0.2 % (0-2.0); EOS % 0.2 % (0-4.5); HEMATOCRIT 39.1 % (35.4-49); HEMOGLOBIN 12.4 GM/dL (11.7-16.9); LYMPH % 2.2 % (8-40); MCH 30.6 pg (25.7-33.7); MCHC 31.7 g/dl (32.0-35.9); MEAN CELL VOLUME 96.6 fl (80-96); MEAN PLT VOLUME 10.6 fl (7.5-11.1); MONO % 1.9 % (3.8-10.2); NEUT % 95.5 % (42.8-82.8); PLATELET COUNT 114 K/MM3 (134-434); RBC 4.04 M/mm3 (4.00-5.60); WHITE BLOOD COUNT 21.8 K/mm3 (4.0-10.0)
[2017-12-04] MEDS: ALBUTEROL SO4 2.5/IPRATROPIUM 0.5 INH SOL 3 ML VIAL.NEB. NEB SCH ×4 (08:17→20:34)
[2017-12-04 08:53] LABS: ALBUMIN 1.9 g/dl (3.4-5.0); ALK PHOS 58 U/L (45-117); ANION GAP 5 MMOL/L (8-16); BILIRUBIN,TOTAL 0.6 mg/dL (0.2-1); CALCIUM 7.9 mg/dL (8.5-10.1); CHLORIDE 119 mmol/L (98-107); CO2 37 mmol/L (21-32); CREATININE 1.8 mg/dL (0.55-1.3); PHOSPHOROUS 4.4 mg/dL (2.5-4.9); POTASSIUM 4.3 mmol/L (3.5-5.1); SGOT/AST 40 U/L (15-37); SGPT/ALT 55 U/L (13-61); TOT PROT 5.3 g/dl (6.4-8.2)
[2017-12-04 09:03] LABS: PLATELET ESTIMATE SLT DECREASE
--- NOTE | 2017-12-04 09:07 | PN ---
Progress Note (short form) - Note Progress Note: Renal follow up for BURKE Pt seen and examined in the ICU yesterdays events reviewed with the nursing staff became tachycardic and subsequently became hypotensive pt initially received 900cc of NS bolous and then lasix. making urine appears to have gotten total of 6.8L of fluids yesterday from IVF and PB Vital Signs Temperature 100.6 F H 12/04/17 08:00 Pulse Rate 72 12/04/17 08:00 Respiratory Rate 28 H 12/04/17 08:30 Blood Pressure 102/61 12/04/17 08:00 O2 Sat by Pulse Oximetry (%) 99 12/04/17 08:34 Intake & Output 12/01/17 12/02/17 12/03/17 12/04/17 23:59 23:59 23:59 23:59 Intake Total 1421.3 3340 6804 1034 Output Total 1650 2000 3000 900 Balance -228.7 1340 3804 134 Weight 76.34 kg 71.923 kg 74.5 kg 75.568 kg NAD sedated on vent via ET tube RRR Course Bs soft NT/ND no bladder distension No LE edema, clubbing or cyanosis CBC, BMP 12/04/17 05:35 12/04/17 05:35 Current Medications Acetaminophen (Tylenol -) 650 mg PO Q6H PRN PRN Reason: PAIN OR FEVER Last Admin: 12/03/17 15:51 Dose: 650 mg Albuterol Sulfate (Ventolin 0.083% Nebulizer Soln -) 1 amp NEB Q8H PRN PRN Reason: SHORT OF BREATH/WHEEZING Last Admin: 12/04/17 00:40 Dose: 1 amp Albuterol/Ipratropium (Duoneb -) 1 amp NEB RQID [facility] Last Admin: 12/04/17 08:17 Dose: 1 amp Chlorhexidine Gluconate (Hibiclens For Decolonization -) 1 applic TP HS [facility] Last Admin: 12/03/17 21:29 Dose: 1 applic Fludrocortisone Acetate (Florinef -) 0.05 mg PO DAILY [facility] Last Admin: 12/03/17 23:18 Dose: 0.05 mg Furosemide (Lasix Injection -) 40 mg IVPUSH DAILY [facility] Last Admin: 12/03/17 14:53 Dose: 40 mg Heparin Sodium (Porcine) (Heparin -) 1,000 unit IVPUSH PRN PRN PRN Reason: Heparin Heparin Sodium (Porcine) (Heparin -) 5,000 unit IVPUSH PRN PRN PRN Reason: Heparin Hydrocortisone Sodium Succinate (Solu-Cortef -) 50 mg IVPB Q6H-IV [facility] Last Admin: 12/04/17 06:32 Dose: 50 mg Propofol (Diprivan -) 1,000,000 mcg in 100 mls @ 4.79 mls/hr IVPB TITR [facility]; Protocol Last Admin: 12/04/17 08:20 Dose: 70 mcg/kg/min, 33.529 mls/hr Fentanyl 500 mcg/ Dextrose 100 mls @ 20 mls/hr IVPB TITR [facility]; Protocol Last Admin: 12/04/17 06:38 Dose: 50 mcg/hr, 10 mls/hr Meropenem 1 gm/ Dextrose 100 mls @ 200 mls/hr IVPB BID [facility] Last Admin: 12/03/17 23:13 Dose: 200 mls/hr Heparin Sodium (Porcine) 25, (000 unit/ Sodium Chloride) 500 mls @ 20 mls/hr IV TITR [facility]; Protocol Last Admin: 12/03/17 21:00 Dose: 1,000 unit/hr, 20 mls/hr Vasopressin 50 units/ Sodium (Chloride) 100 mls @ 4 mls/hr IVPB ASDIR [facility]; Protocol Last Admin: 12/04/17 04:26 Dose: 4 units/hr, 8 mls/hr Norepinephrine Bitartrate 8, (000 mcg/ Dextrose) 500 mls @ 7.5 mls/hr IV TITR [facility]; Protocol Last Titration: 12/03/17 19:04 Dose: 8 mcg/min, 30 mls/hr Vancomycin HCl 1,000 mg/ (Dextrose) 250 mls @ 200 mls/hr IVPB Q24H [facility]; Protocol Amiodarone HCl/Dextrose (Nexterone 360 Mg/200 Ml Bag) 360 mg in 200 mls @ 33.333 mls/hr IVPB TITR [facility]; Protocol Last Admin: 12/04/17 04:20 Dose: 1 mg/min, 33.333 mls/hr Insulin Aspart (Novolog Vial Sliding Scale -) 1 vial SQ ACHS [facility]; Protocol Last Admin: 12/04/17 06:39 Dose: 12 units Insulin Detemir (Levemir Vial) 15 units SQ BID@0700,2200 [facility] Last Admin: 12/04/17 06:33 Dose: 15 units Midazolam HCl (Versed -) 2 mg IVPUSH Q2H PRN PRN Reason: TACHYCARDIA Last Admin: 12/03/17 15:15 Dose: 2 mg Mupirocin (Bactroban Ointment (For Decolonization) -) 1 applic NS BID [facility] Stop: 12/04/17 21:59 Last Admin: 12/03/17 21:27 Dose: 1 applic Polyethylene Glycol (Miralax (For Daily Use) -) 17 gm NGT BID [facility] Last Admin: 12/03/17 23:24 Dose: Not Given Senna (Senna Oral Solution -) 8.8 mg PO HS [facility] Last Admin: 12/03/17 23:24 Dose: Not Given Tamsulosin HCl (Flomax -) 0.4 mg PO DAILY@0830 [facility] Last Admin: 12/03/17 08:18 Dose: 0.4 mg 67yo man with a PMH of HTN, DM, BPH and SLE. He was brought in to ER with worsening SOB and found to have respiratory failure from PNA/ARDS with BURKE and hypernatremia #BURKE secondary to renal hypoprofusion in setting of sepsis and intravascular volume depletion #Hypernatremia secondary to volume depletion/water deficit #Respiratory failure from ARDS/PNA #Sepsis #Hyperkalemia pt appears unable to tolerate large volume infuison (got around 6.8L yesterday) would not retart IVF but maintain on just piggy backs that he is getting with pressers and abx continue vaospresers to maintain map > 65 trend urine output and cr No indication for [employer]ANGUAGE [employer]TER at the present time vent support Lasix as needed for congestion Jaswant Sparrow DO
[2017-12-04 09:10] LABS: BLOOD UREA NITROGEN 113 mg/dL (7-18); GLUCOSE,RANDOM 312 mg/dL (74-106); SODIUM 161 mmol/L (136-145)
[2017-12-04] MEDS ORDERED: PT OWN MED DRAWER 7, Y5N ONE ×5 (09:57→21:23)
[2017-12-04] MEDS: FUROSEMIDE 40 MG/4 ML INJECTABLE VIAL IVPUSH SCH ×2 (10:00→10:03)
[2017-12-04] MEDS: TAMSULOSIN HCL 0.4 MG CAP PO SCH (10:01)
[2017-12-04] MEDS: MUPIROCIN 2% TOPICAL OINTMENT FOR DECOLONIZATION NS SCH (10:01)
[2017-12-04] MEDS: MEROPENEM 1 GM in DEXTROSE 5%-WATER 100 ML IVPB SCH (10:02)
[2017-12-04] MEDS: POLYETHYLENE GLYCOL 3350 119 GM BTL NGT SCH (10:04)
[2017-12-04] MEDS: FLUDROCORTISONE ACETATE 0.1 MG TABLET (FP) PO SCH (10:07)
--- NOTE | 2017-12-04 10:17 | PN ---
Teaching Attending Note Name of Resident: James Vasquez ATTENDING PHYSICIAN STATEMENT I saw and evaluated the patient. I reviewed the resident's note and discussed the case with the resident. I agree with the resident's findings and plan as documented. SUBJECTIVE: Patient seen and examined in the ICU. Further clinical decompensation overnight. New Rapid AFib. Remains intubated on AC Mode of vent, 60% FiO2 and PEEP 8. Amiodarone drip for rate control and IV Heparin. Currently on NE @ 8 mcq and Vasopressin 4 units/hour for hemodynamic support. CXR: No gross change in bilateral interstitial markings Intake & Output 12/01/17 12/02/17 12/03/17 12/04/17 23:59 23:59 23:59 23:59 Intake Total 1421.3 3340 6004 1034 Output Total 1650 2000 3800 900 Balance -228.7 1340 2204 134 Weight 168 lb 4.8 oz 158 lb 9 oz 164 lb 3.91 oz 166 lb 9.6 oz Last Vital Signs Temp Pulse Resp BP Pulse Ox 100.6 F H 72 28 H 102/61 99 12/04/17 08:00 12/04/17 08:00 12/04/17 08:30 12/04/17 08:00 12/04/17 08:34 Active Medications Acetaminophen (Tylenol -) 650 mg PO Q6H PRN PRN Reason: PAIN OR FEVER Last Admin: 12/03/17 15:51 Dose: 650 mg Albuterol Sulfate (Ventolin 0.083% Nebulizer Soln -) 1 amp NEB Q8H PRN PRN Reason: SHORT OF BREATH/WHEEZING Last Admin: 12/04/17 00:40 Dose: 1 amp Albuterol/Ipratropium (Duoneb -) 1 amp NEB RQID [facility] Last Admin: 12/04/17 08:17 Dose: 1 amp Chlorhexidine Gluconate (Hibiclens For Decolonization -) 1 applic TP HS [facility] Last Admin: 12/03/17 21:29 Dose: 1 applic Fludrocortisone Acetate (Florinef -) 0.05 mg PO DAILY [facility] Last Admin: 12/04/17 10:07 Dose: 0.05 mg Furosemide (Lasix Injection -) 40 mg IVPUSH DAILY [facility] Last Admin: 12/04/17 10:03 Dose: Not Given Heparin Sodium (Porcine) (Heparin -) 1,000 unit IVPUSH PRN PRN PRN Reason: Heparin Heparin Sodium (Porcine) (Heparin -) 5,000 unit IVPUSH PRN PRN PRN Reason: Heparin Hydrocortisone Sodium Succinate (Solu-Cortef -) 50 mg IVPB Q6H-IV [facility] Last Admin: 12/04/17 10:00 Dose: 50 mg Propofol (Diprivan -) 1,000,000 mcg in 100 mls @ 4.79 mls/hr IVPB TITR [facility]; Protocol Last Admin: 12/04/17 08:20 Dose: 70 mcg/kg/min, 33.529 mls/hr Fentanyl 500 mcg/ Dextrose 100 mls @ 20 mls/hr IVPB TITR [facility]; Protocol Last Admin: 12/04/17 06:38 Dose: 50 mcg/hr, 10 mls/hr Meropenem 1 gm/ Dextrose 100 mls @ 200 mls/hr IVPB BID [facility] Last Admin: 12/04/17 10:02 Dose: 200 mls/hr Heparin Sodium (Porcine) 25, (000 unit/ Sodium Chloride) 500 mls @ 20 mls/hr IV TITR [facility]; Protocol Last Admin: 12/03/17 21:00 Dose: 1,000 unit/hr, 20 mls/hr Vasopressin 50 units/ Sodium (Chloride) 100 mls @ 4 mls/hr IVPB ASDIR [facility]; Protocol Last Admin: 12/04/17 04:26 Dose: 4 units/hr, 8 mls/hr Norepinephrine Bitartrate 8, (000 mcg/ Dextrose) 500 mls @ 7.5 mls/hr IV TITR [facility]; Protocol Last Titration: 12/03/17 19:04 Dose: 8 mcg/min, 30 mls/hr Vancomycin HCl 1,000 mg/ (Dextrose) 250 mls @ 200 mls/hr IVPB Q24H [facility]; Protocol Amiodarone HCl/Dextrose (Nexterone 360 Mg/200 Ml Bag) 360 mg in 200 mls @ 33.333 mls/hr IVPB TITR [facility]; Protocol Last Admin: 12/04/17 04:20 Dose: 1 mg/min, 33.333 mls/hr Insulin Aspart (Novolog Vial Sliding Scale -) 1 vial SQ ACHS [facility]; Protocol Last Admin: 12/04/17 06:39 Dose: 12 units Insulin Detemir (Levemir Vial) 15 units SQ BID@0700,2200 [facility] Last Admin: 12/04/17 06:33 Dose: 15 units Midazolam HCl (Versed -) 2 mg IVPUSH Q2H PRN PRN Reason: TACHYCARDIA Last Admin: 12/03/17 15:15 Dose: 2 mg Mupirocin (Bactroban Ointment (For Decolonization) -) 1 applic NS BID [facility] Stop: 12/04/17 21:59 Last Admin: 12/04/17 10:01 Dose: 1 applic Polyethylene Glycol (Miralax (For Daily Use) -) 17 gm NGT BID [facility] Last Admin: 12/04/17 10:04 Dose: Not Given Senna (Senna Oral Solution -) 8.8 mg PO HS [facility] Last Admin: 12/03/17 23:24 Dose: Not Given Tamsulosin HCl (Flomax -) 0.4 mg PO DAILY@0830 [facility] Last Admin: 12/04/17 10:01 Dose: 0.4 mg Gen: Intubated and sedated Heart: RRR Lung: Bilateral coarse crackles / rhonchi Abd: soft, nontender Ext: no edema Laboratory Results - last 24 hr 12/02/17 12/03/17 12/03/17 17:00 05:30 10:26 WBC RBC Hgb Hct MCV MCH MCHC RDW Plt Count MPV Absolute Neuts (auto) Neutrophils % Neutrophils % (Manual) 95.9 H Band Neutrophils % 0.0 Lymphocytes % Lymphocytes % (Manual) 2.1 L D Monocytes % Monocytes % (Manual) 0 L D Eosinophils % Eosinophils % (Manual) 1.0 D Basophils % Basophils % (Manual) 0.0 Myelocytes % (Man) 0 Promyelocytes % (Man) 0 Blast Cells % (Manual) 0 Nucleated RBC % 0 Metamyelocytes 0 Hypochromia 0 Platelet Estimate Decreased Platelet Comment Polychromasia 1+ Poikilocytosis 0 Anisocytosis 1+ Microcytosis 1+ Macrocytosis 0 Haptoglobin 280 H PT with INR INR PTT (Actin FS) Puncture Site Right radial ABG pH 7.47 H ABG pCO2 at Pt Temp 52.5 H D ABG pO2 at Pt Temp 115.0 H D ABG HCO3 37.6 H ABG O2 Sat (Measured) 98.4 ABG O2 Content 18.0 ABG Base Excess 12.0 H Bassem Test No Result Required. O2 Delivery Device Oxygen Flow Rate 55 Vent Mode Ac Vent Rate 28 Mechanical Rate PEEP 8.0 Pressure Support Vent Sodium Potassium Chloride Carbon Dioxide Anion Gap BUN Creatinine Creat Clearance w eGFR POC Glucometer Random Glucose Lactic Acid Calcium Phosphorus Magnesium Total Bilirubin AST ALT Alkaline Phosphatase Total Protein Albumin TSH 12/03/17 12/03/17 12/03/17 12:13 14:01 15:40 WBC RBC Hgb Hct MCV MCH MCHC RDW Plt Count MPV Absolute Neuts (auto) Neutrophils % Neutrophils % (Manual) Band Neutrophils % Lymphocytes % Lymphocytes % (Manual) Monocytes % Monocytes % (Manual) Eosinophils % Eosinophils % (Manual) Basophils % Basophils % (Manual) Myelocytes % (Man) Promyelocytes % (Man) Blast Cells % (Manual) Nucleated RBC % Metamyelocytes Hypochromia Platelet Estimate Platelet Comment Polychromasia Poikilocytosis Anisocytosis Microcytosis Macrocytosis Haptoglobin PT with INR INR PTT (Actin FS) Puncture Site Right radial ABG pH 7.35 ABG pCO2 at Pt Temp 69.9 H* D ABG pO2 at Pt Temp 86.4 D ABG HCO3 37.5 H ABG O2 Sat (Measured) 95.1 ABG O2 Content 17.2 ABG Base Excess 9.5 H Bassem Test No Result Required. O2 Delivery Device Oxygen Flow Rate 65 Vent Mode Vent Rate 24 Mechanical Rate PEEP 8.0 Pressure Support Vent Sodium Potassium Chloride Carbon Dioxide Anion Gap BUN Creatinine Creat Clearance w eGFR POC Glucometer 342.79265 349.83074 Random Glucose Lactic Acid Calcium Phosphorus Magnesium Total Bilirubin AST ALT Alkaline Phosphatase Total Protein Albumin TSH 12/03/17 12/03/17 12/03/17 17:50 17:50 17:50 WBC 33.3 H* RBC 4.08 Hgb 12.3 Hct 41.4 MCV 101.4 H MCH 30.2 MCHC 29.8 L RDW 16.6 H Plt Count 147 D MPV 11.7 H Absolute Neuts (auto) Neutrophils % Neutrophils % (Manual) Band Neutrophils % Lymphocytes % Lymphocytes % (Manual) Monocytes % Monocytes % (Manual) Eosinophils % Eosinophils % (Manual) Basophils % Basophils % (Manual) Myelocytes % (Man) Promyelocytes % (Man) Blast Cells % (Manual) Nucleated RBC % Metamyelocytes Hypochromia Platelet Estimate Platelet Comment Polychromasia Poikilocytosis Anisocytosis Microcytosis Macrocytosis Haptoglobin PT with INR 11.70 INR 0.99 PTT (Actin FS) 29.8 Puncture Site ABG pH ABG pCO2 at Pt Temp ABG pO2 at Pt Temp ABG HCO3 ABG O2 Sat (Measured) ABG O2 Content ABG Base Excess Bassem Test O2 Delivery Device Oxygen Flow Rate Vent Mode Vent Rate Mechanical Rate PEEP Pressure Support Vent Sodium 157 H Potassium 5.0 Chloride 118 H Carbon Dioxide 37 H Anion Gap 2 L BUN 134 H* Creatinine 2.1 H Creat Clearance w eGFR 31.47 POC Glucometer Random Glucose 445 H* Lactic Acid Calcium 8.2 L Phosphorus Magnesium Total Bilirubin AST ALT Alkaline Phosphatase Total Protein Albumin TSH 12/03/17 12/03/17 12/04/17 22:25 23:00 03:40 WBC RBC Hgb Hct MCV MCH MCHC RDW Plt Count MPV Absolute Neuts (auto) Neutrophils % Neutrophils % (Manual) Band Neutrophils % Lymphocytes % Lymphocytes % (Manual) Monocytes % Monocytes % (Manual) Eosinophils % Eosinophils % (Manual) Basophils % Basophils % (Manual) Myelocytes % (Man) Promyelocytes % (Man) Blast Cells % (Manual) Nucleated RBC % Metamyelocytes Hypochromia Platelet Estimate Platelet Comment Polychromasia Poikilocytosis Anisocytosis Microcytosis Macrocytosis Haptoglobin PT with INR INR PTT (Actin FS) 69.7 H Puncture Site Arterial line ABG pH 7.35 ABG pCO2 at Pt Temp 69.6 H* ABG pO2 at Pt Temp 75.5 L ABG HCO3 37.4 H ABG O2 Sat (Measured) 93.0 ABG O2 Content 16.4 ABG Base Excess 9.6 H Bassem Test Positive O2 Delivery Device Mech vent Oxygen Flow Rate 60% Vent Mode A/c Vent Rate 24 Mechanical Rate Yes PEEP 8.0 Pressure Support Vent 420 Sodium Potassium Chloride Carbon Dioxide Anion Gap BUN Creatinine Creat Clearance w eGFR POC Glucometer Random Glucose Lactic Acid 1.4 Calcium Phosphorus Magnesium Total Bilirubin AST ALT Alkaline Phosphatase Total Protein Albumin TSH 12/04/17 12/04/17 12/04/17 05:35 05:35 05:38 WBC 21.8 H RBC 4.04 Hgb 12.4 Hct 39.1 MCV 96.6 H MCH 30.6 MCHC 31.7 L RDW 16.0 H Plt Count 114 L D MPV 10.6 Absolute Neuts (auto) 20.8 H Neutrophils % 95.5 H Neutrophils % (Manual) 81.0 Band Neutrophils % 12.0 Lymphocytes % 2.2 L D Lymphocytes % (Manual) 5.0 L D Monocytes % 1.9 L Monocytes % (Manual) 1 L D Eosinophils % 0.2 D Eosinophils % (Manual) 0.0 D Basophils % 0.2 Basophils % (Manual) 0.0 Myelocytes % (Man) 1 D Promyelocytes % (Man) Blast Cells % (Manual) Nucleated RBC % 0 Metamyelocytes Hypochromia Platelet Estimate Slt decrease Platelet Comment No clumping noted Polychromasia Poikilocytosis Anisocytosis Microcytosis Macrocytosis Haptoglobin PT with INR INR PTT (Actin FS) Puncture Site ABG pH ABG pCO2 at Pt Temp ABG pO2 at Pt Temp ABG HCO3 ABG O2 Sat (Measured) ABG O2 Content ABG Base Excess Bassem Test O2 Delivery Device Oxygen Flow Rate Vent Mode Vent Rate Mechanical Rate PEEP Pressure Support Vent Sodium 161 H* Potassium 4.3 Chloride 119 H Carbon Dioxide 37 H Anion Gap 5 L BUN 113 H* Creatinine 1.8 H Creat Clearance w eGFR 37.60 POC Glucometer [phone] Random Glucose 312 H* Lactic Acid Calcium 7.9 L Phosphorus 4.4 Magnesium 3.0 H Total Bilirubin 0.6 AST 40 H ALT 55 Alkaline Phosphatase 58 Total Protein 5.3 L Albumin 1.9 L TSH 0.12 L ASSESSMENT AND PLAN: Acute on 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 - To review all drips and attempt o maintain CVP no greater than 8 (ideally 4 in ARDS but needs higher perfusion pressures for BURKE) - monitor urine output, creatinine - monitor CXR and ABG - ABX - Hydrocortosone and Fludrocortisone for shock - inhaled bronchodilators - Will need further discussions with the patient/family regarding GOC given advanced/end stage ILD - Continue ICU monitoring due to tenuous respiratory status Dr Javier Critical care time spent in reviewing chart, evaluating patient and formulating plan 35 min
[2017-12-04] MEDS ORDERED: NOREPINEPHRINE BITARTRATE 8,000 MCG in DEXTROSE 5%-WATER - 242 ML IV SCH (10:39)
[2017-12-04] MEDS ORDERED: DEXTROSE 5% IVPB SCH (10:41)
[2017-12-04] MEDS ORDERED: FENTANYL IVPB SCH (10:41)
[2017-12-04] MEDS ORDERED: WATER IVPB SCH (10:41)
[2017-12-04] MEDS: NOREPINEPHRINE BITARTRATE 8,000 MCG in DEXTROSE 5%-WATER - 242 ML IVPB SCH ×3 (10:46→15:13)
[2017-12-04 10:53] LABS: ALLENS TEST POSITIVE; ARTERIAL BLD GAS O2 SATURATION 95.3 % (90-98.9); ARTERIAL BLOOD GAS BASE EXCESS 11.6 meq/l (-2-2); ARTERIAL BLOOD GAS PO2 79.7 mmHg (80-100); ARTERIAL BLOOD GAS pH 7.39 (7.35-7.45)
[2017-12-04 11:01] LABS: ARTERIAL BLOOD GAS PCO2 65.8 mmHg (35-45)
[2017-12-04] MEDS ORDERED: HEMOQUE TEST 1 EACH EACH ONE (11:10)
--- NOTE | 2017-12-04 11:43 | PN ---
Progress Note, Physician History of Present Illness: Remains sedated on ventilator, remains on Levophed and vasopressin gtt, had episodes of rapid PAF yesterday converted to SR after amio bolus. - Current Medication List Current Medications: Active Medications Acetaminophen (Tylenol -) 650 mg PO Q6H PRN PRN Reason: PAIN OR FEVER Last Admin: 12/03/17 15:51 Dose: 650 mg Albuterol Sulfate (Ventolin 0.083% Nebulizer Soln -) 1 amp NEB Q8H PRN PRN Reason: SHORT OF BREATH/WHEEZING Last Admin: 12/04/17 00:40 Dose: 1 amp Albuterol/Ipratropium (Duoneb -) 1 amp NEB RQID [facility] Last Admin: 12/04/17 08:17 Dose: 1 amp Chlorhexidine Gluconate (Hibiclens For Decolonization -) 1 applic TP HS [facility] Last Admin: 12/03/17 21:29 Dose: 1 applic Fludrocortisone Acetate (Florinef -) 0.05 mg PO DAILY [facility] Last Admin: 12/04/17 10:07 Dose: 0.05 mg Furosemide (Lasix Injection -) 40 mg IVPUSH DAILY [facility] Last Admin: 12/04/17 10:03 Dose: Not Given Heparin Sodium (Porcine) (Heparin -) 1,000 unit IVPUSH PRN PRN PRN Reason: Heparin Heparin Sodium (Porcine) (Heparin -) 5,000 unit IVPUSH PRN PRN PRN Reason: Heparin Hydrocortisone Sodium Succinate (Solu-Cortef -) 50 mg IVPUSH Q6H-IV [facility] Propofol (Diprivan -) 1,000,000 mcg in 100 mls @ 4.79 mls/hr IVPB TITR [facility]; Protocol Last Admin: 12/04/17 08:20 Dose: 70 mcg/kg/min, 33.529 mls/hr Vancomycin HCl 1,000 mg/ (Dextrose) 250 mls @ 200 mls/hr IVPB Q24H [facility]; Protocol Amiodarone HCl/Dextrose (Nexterone 360 Mg/200 Ml Bag) 360 mg in 200 mls @ 33.333 mls/hr IVPB TITR [facility]; Protocol Last Admin: 12/04/17 10:43 Dose: 1 mg/min, 33.333 mls/hr Meropenem 1 gm/ Dextrose 50 mls @ 200 mls/hr IVPB BID [facility] Norepinephrine Bitartrate 8, (000 mcg/ Dextrose) 250 mls @ 3.75 mls/hr IVPB TITR [facility]; Protocol Last Admin: 12/04/17 10:46 Dose: 8 mcg/min, 15 mls/hr Fentanyl 500 mcg/ Dextrose 50 mls @ 10 mls/hr IVPB TITR [facility]; Protocol Heparin Sodium (Porcine) 25, (000 unit/ Sodium Chloride) 250 mls @ 10 mls/hr IV TITR [facility]; Protocol Vasopressin 50 units/ Sodium (Chloride) 50 mls @ 2 mls/hr IVPB ASDIR [facility]; Protocol Insulin Aspart (Novolog Vial Sliding Scale -) 1 vial SQ ACHS [facility]; Protocol Last Admin: 12/04/17 06:39 Dose: 12 units Insulin Detemir (Levemir Vial) 15 units SQ BID@0700,2200 [facility] Last Admin: 12/04/17 06:33 Dose: 15 units Midazolam HCl (Versed -) 2 mg IVPUSH Q2H PRN PRN Reason: TACHYCARDIA Last Admin: 12/03/17 15:15 Dose: 2 mg Mupirocin (Bactroban Ointment (For Decolonization) -) 1 applic NS BID [facility] Stop: 12/04/17 21:59 Last Admin: 12/04/17 10:01 Dose: 1 applic Polyethylene Glycol (Miralax (For Daily Use) -) 17 gm NGT BID [facility] Last Admin: 12/04/17 10:04 Dose: Not Given Senna (Senna Oral Solution -) 8.8 mg PO HS [facility] Last Admin: 12/03/17 23:24 Dose: Not Given Tamsulosin HCl (Flomax -) 0.4 mg PO DAILY@0830 [facility] Last Admin: 12/04/17 10:01 Dose: 0.4 mg - Objective Vital Signs: Vital Signs Temperature 100.6 F H 12/04/17 08:00 Pulse Rate 59 L 12/04/17 10:46 Respiratory Rate 25 H 12/04/17 10:37 Blood Pressure 122/47 L 12/04/17 10:46 O2 Sat by Pulse Oximetry (%) 99 12/04/17 08:34 Neck: Yes: Supple Cardiovascular: Yes: Regular Rate and Rhythm Respiratory: Yes: Intubated, Mechanically Ventilated, Rales Gastrointestinal: Yes: Normal Bowel Sounds, Soft Edema: No Labs: CBC, BMP 12/04/17 05:35 12/04/17 05:35 INR, PTT INR 0.99 (0.83-1.09) 12/03/17 17:50 - ....Imaging Chest X-ray: Report Reviewed (ILD) EKG: Report Reviewed (Rapid afib @ 154 -> SR) Problem List - Problems (1) Hypertension Code(s): I10 - ESSENTIAL (PRIMARY) HYPERTENSION Qualifiers: Hypertension type: essential hypertension Qualified Code(s): I10 - Essential (primary) hypertension (2) Old myocardial infarction Code(s): I25.2 - OLD MYOCARDIAL INFARCTION (3) Acute and chronic respiratory failure with hypoxia Code(s): J96.21 - ACUTE AND CHRONIC RESPIRATORY FAILURE WITH HYPOXIA (4) CKD (chronic kidney disease) Code(s): N18.9 - CHRONIC KIDNEY DISEASE, UNSPECIFIED Qualifiers: Chronic kidney disease stage: stage 2 (mild) Qualified Code(s): N18.2 - Chronic kidney disease, stage 2 (mild) (5) Pneumonia Code(s): J18.9 - PNEUMONIA, UNSPECIFIED ORGANISM Qualifiers: Lung location: unspecified part of lung (6) SLE (systemic lupus erythematosus) Code(s): M32.9 - SYSTEMIC LUPUS ERYTHEMATOSUS, UNSPECIFIED Qualifiers: Systemic lupus erythematosus organ involvement: unspecified (7) Sepsis Code(s): A41.9 - SEPSIS, UNSPECIFIED ORGANISM Qualifiers: Sepsis type: sepsis due to unspecified organism Qualified Code(s): A41.9 - Sepsis, unspecified organism (8) Hypernatremia Code(s): E87.0 - HYPEROSMOLALITY AND HYPERNATREMIA (9) Paroxysmal atrial fibrillation with rapid ventricular response Code(s): I48.0 - PAROXYSMAL ATRIAL FIBRILLATION Assessment/Plan 09/09/2017 Echo: Normal LV size and fxn, normal RV size and fxn, mild AR, MR, TR RVSP 30-40 mmHg 11/02/2017 Myoview: Moderate inferoapical infarct with vandana-infarct ischemia , LVEF 57% 1. Acute on Chronic Hypoxic and hypercapneic Respiratory Failure due to end stage ILD 2. Pneumonia 3. Septic shock 4. Interstitial Lung Disease 5. Acute on chronic diastolic heart failure euvolemic 6. Paroxysmal atrial fibrillation with RVR [id number]-> SR on heparin gtt 7. Acute on CKD due to hypotension and renal hypoperfusion 8. CAD post TX with abnormal MPI 9. HTN 10. DM 11. BPH 12. Hypernatremia PLAN: 1. Agree with renal-dosed digoxin with monitor dig level, avoid amiodarone long- term given ILD 2. Heparin gtt pending procedures, then transition to Eliquis 5 bid 3. Free water flushes to correct free water deficit, judicious hydration and monitor renal recovery 2. Wean Levophed and vasopressin gtt to maintain MAP>65 mmHg 3. Resume ARB and beta charles as hemodynamics tolerate once off of pressors and renal fxn stabilizes 4. Empiric abx course, bronchodilators and IV steroids as per pulmonary service 5. Ventilator wean as tolerated, enteral feeds, DVT/GI prophylaxis, may need trach r
[2017-12-04] MEDS ORDERED: DIGOXIN 0.5 MG/2 ML AMPUL IVPUSH ONE (11:53)
--- NOTE | 2017-12-04 11:59 | PN ---
Physical Exam: SUBJECTIVE: Patient seen and examined. Pt. became tachycardic to 170s overnight. Pt. was given one time dose of amiodarone and converted to NSR. Pt. became hypotensive so Fludrocortisone and Hydrocortisone was started with Vasopressin and Levophed was titrated to 22. A-line was placed for better BP monitoring. Pt. spiked a temperature to 100.7 and WBCs were elevated there fore Pt. received one time dose of dose of fluconazolefor empirical fungal coverage, levaquin and merrem(empirical Pseudomonas). Pt. started Vancomycin for empirical MRSA coverage. Pt. started on Heparin drip for DVT prophylaxis. This afternoon Pt. spiked another temperature to 102.1, given Tylenol. This afternoon Pt. found to be in A.Fib, Pt. spoontaneously reverted to NSR. EKG ordered- showed NSR. Pt. this evening to be evacuating what seems like venessa blood mixed with loose stool. Stool guaic test was sent and Heparin drip was stopped. CBC, Coags, fibrinogen and Type and Screen were sent. OBJECTIVE: Vital Signs Period Temp Pulse Resp BP Sys/Paul Pulse Ox Last 24 Hr 99.5 F-100.7 F 34-156 18-33 38-167/22-83 98-99 GENERAL: Sedated, arousable to pain HEAD: Normal with no signs of trauma. EYES: PERRL, Pinguecula, No ptosis. ENT: Ears normal, nares patent, oropharynx clear without exudates, dry mucous membranes. NECK: Trachea midline, full range of motion, supple. LUNGS: Mechanical ventilation, velcro-like sound, no accessory muscle use. HEART: Regular rate and rhythm, S1, S2 without murmur ABDOMEN: Soft, nontender, nondistended, normoactive bowel sounds, no guarding, no rebound EXTREMITIES: 2+ dorsal pedal pulses, 2 + right radial pulse, warm, well-perfused , no edema, no calf-tenderness SKIN: Warm, dry, normal turgor Laboratory Results - last 24 hr 12/02/17 12/03/17 12/03/17 17:00 12:13 14:01 WBC RBC Hgb Hct MCV MCH MCHC RDW Plt Count MPV Absolute Neuts (auto) Neutrophils % Neutrophils % (Manual) Band Neutrophils % Lymphocytes % Lymphocytes % (Manual) Monocytes % Monocytes % (Manual) Eosinophils % Eosinophils % (Manual) Basophils % Basophils % (Manual) Myelocytes % (Man) Nucleated RBC % Platelet Estimate Platelet Comment Haptoglobin 280 H PT with INR INR PTT (Actin FS) Anticoagulation Therapy Puncture Site ABG pH ABG pCO2 at Pt Temp ABG pO2 at Pt Temp ABG HCO3 ABG O2 Sat (Measured) ABG O2 Content ABG Base Excess Bassem Test O2 Delivery Device Oxygen Flow Rate Vent Mode Vent Rate Mechanical Rate PEEP Pressure Support Vent Sodium Potassium Chloride Carbon Dioxide Anion Gap BUN Creatinine Creat Clearance w eGFR POC Glucometer [phone] Random Glucose Lactic Acid Calcium Phosphorus Magnesium Total Bilirubin AST ALT Alkaline Phosphatase Total Protein Albumin TSH 12/03/17 12/03/17 12/03/17 15:40 17:50 17:50 WBC RBC Hgb Hct MCV MCH MCHC RDW Plt Count MPV Absolute Neuts (auto) Neutrophils % Neutrophils % (Manual) Band Neutrophils % Lymphocytes % Lymphocytes % (Manual) Monocytes % Monocytes % (Manual) Eosinophils % Eosinophils % (Manual) Basophils % Basophils % (Manual) Myelocytes % (Man) Nucleated RBC % Platelet Estimate Platelet Comment Haptoglobin PT with INR 11.70 INR 0.99 PTT (Actin FS) 29.8 Anticoagulation Therapy Puncture Site Right radial ABG pH 7.35 ABG pCO2 at Pt Temp 69.9 H* D ABG pO2 at Pt Temp 86.4 D ABG HCO3 37.5 H ABG O2 Sat (Measured) 95.1 ABG O2 Content 17.2 ABG Base Excess 9.5 H Bassem Test No Result Required. O2 Delivery Device Oxygen Flow Rate 65 Vent Mode Vent Rate 24 Mechanical Rate PEEP 8.0 Pressure Support Vent Sodium 157 H Potassium 5.0 Chloride 118 H Carbon Dioxide 37 H Anion Gap 2 L BUN 134 H* Creatinine 2.1 H Creat Clearance w eGFR 31.47 POC Glucometer Random Glucose 445 H* Lactic Acid Calcium 8.2 L Phosphorus Magnesium Total Bilirubin AST ALT Alkaline Phosphatase Total Protein Albumin TSH 12/03/17 12/03/17 12/03/17 17:50 22:25 23:00 WBC 33.3 H* RBC 4.08 Hgb 12.3 Hct 41.4 MCV 101.4 H MCH 30.2 MCHC 29.8 L RDW 16.6 H Plt Count 147 D MPV 11.7 H Absolute Neuts (auto) Neutrophils % Neutrophils % (Manual) Band Neutrophils % Lymphocytes % Lymphocytes % (Manual) Monocytes % Monocytes % (Manual) Eosinophils % Eosinophils % (Manual) Basophils % Basophils % (Manual) Myelocytes % (Man) Nucleated RBC % Platelet Estimate Platelet Comment Haptoglobin PT with INR INR PTT (Actin FS) Anticoagulation Therapy Puncture Site Arterial line ABG pH 7.35 ABG pCO2 at Pt Temp 69.6 H* ABG pO2 at Pt Temp 75.5 L ABG HCO3 37.4 H ABG O2 Sat (Measured) 93.0 ABG O2 Content 16.4 ABG Base Excess 9.6 H Bassem Test Positive O2 Delivery Device Mech vent Oxygen Flow Rate 60% Vent Mode A/c Vent Rate 24 Mechanical Rate Yes PEEP 8.0 Pressure Support Vent 420 Sodium Potassium Chloride Carbon Dioxide Anion Gap BUN Creatinine Creat Clearance w eGFR POC Glucometer Random Glucose Lactic Acid 1.4 Calcium Phosphorus Magnesium Total Bilirubin AST ALT Alkaline Phosphatase Total Protein Albumin TSH 12/04/17 12/04/17 12/04/17 03:40 05:35 05:35 WBC 21.8 H RBC 4.04 Hgb 12.4 Hct 39.1 MCV 96.6 H MCH 30.6 MCHC 31.7 L RDW 16.0 H Plt Count 114 L D MPV 10.6 Absolute Neuts (auto) 20.8 H Neutrophils % 95.5 H Neutrophils % (Manual) 81.0 Band Neutrophils % 12.0 Lymphocytes % 2.2 L D Lymphocytes % (Manual) 5.0 L D Monocytes % 1.9 L Monocytes % (Manual) 1 L D Eosinophils % 0.2 D Eosinophils % (Manual) 0.0 D Basophils % 0.2 Basophils % (Manual) 0.0 Myelocytes % (Man) 1 D Nucleated RBC % 0 Platelet Estimate Slt decrease Platelet Comment No clumping noted Haptoglobin PT with INR INR PTT (Actin FS) 69.7 H Anticoagulation Therapy Puncture Site ABG pH ABG pCO2 at Pt Temp ABG pO2 at Pt Temp ABG HCO3 ABG O2 Sat (Measured) ABG O2 Content ABG Base Excess Bassem Test O2 Delivery Device Oxygen Flow Rate Vent Mode Vent Rate Mechanical Rate PEEP Pressure Support Vent Sodium 161 H* Potassium 4.3 Chloride 119 H Carbon Dioxide 37 H Anion Gap 5 L BUN 113 H* Creatinine 1.8 H Creat Clearance w eGFR 37.60 POC Glucometer Random Glucose 312 H* Lactic Acid Calcium 7.9 L Phosphorus 4.4 Magnesium 3.0 H Total Bilirubin 0.6 AST 40 H ALT 55 Alkaline Phosphatase 58 Total Protein 5.3 L Albumin 1.9 L TSH 0.12 L 12/04/17 12/04/17 12/04/17 05:38 10:45 11:02 WBC RBC Hgb Hct MCV MCH MCHC RDW Plt Count MPV Absolute Neuts (auto) Neutrophils % Neutrophils % (Manual) Band Neutrophils % Lymphocytes % Lymphocytes % (Manual) Monocytes % Monocytes % (Manual) Eosinophils % Eosinophils % (Manual) Basophils % Basophils % (Manual) Myelocytes % (Man) Nucleated RBC % Platelet Estimate Platelet Comment Haptoglobin PT with INR INR PTT (Actin FS) Anticoagulation Therapy No Result Required. Puncture Site No Result Required. ABG pH 7.39 ABG pCO2 at Pt Temp 65.8 H* ABG pO2 at Pt Temp 79.7 L ABG HCO3 38.8 H ABG O2 Sat (Measured) 95.3 ABG O2 Content 16.1 ABG Base Excess 11.6 H Bassem Test Positive O2 Delivery Device Vent Oxygen Flow Rate 60% Vent Mode Ac Vent Rate 24 Mechanical Rate Yes PEEP 8.0 Pressure Support Vent 420 Sodium Potassium Chloride Carbon Dioxide Anion Gap BUN Creatinine Creat Clearance w eGFR POC Glucometer [phone] Random Glucose Lactic Acid Calcium Phosphorus Magnesium Total Bilirubin AST ALT Alkaline Phosphatase Total Protein Albumin TSH Active Medications Current Medications Acetaminophen (Tylenol -) 650 mg PO Q6H PRN PRN Reason: PAIN OR FEVER Last Admin: 12/03/17 15:51 Dose: 650 mg Albuterol Sulfate (Ventolin 0.083% Nebulizer Soln -) 1 amp NEB Q8H PRN PRN Reason: SHORT OF BREATH/WHEEZING Last Admin: 12/04/17 00:40 Dose: 1 amp Albuterol/Ipratropium (Duoneb -) 1 amp NEB RQID [facility] Last Admin: 12/04/17 11:52 Dose: 1 amp Chlorhexidine Gluconate (Hibiclens For Decolonization -) 1 applic TP HS [facility] Last Admin: 12/03/17 21:29 Dose: 1 applic Digoxin (Lanoxin Injection -) 0.125 mg IVPUSH DAILY ONE Stop: 12/04/17 11:54 Fludrocortisone Acetate (Florinef -) 0.05 mg PO DAILY [facility] Last Admin: 12/04/17 10:07 Dose: 0.05 mg Furosemide (Lasix Injection -) 40 mg IVPUSH DAILY [facility] Last Admin: 12/04/17 10:03 Dose: Not Given Heparin Sodium (Porcine) (Heparin -) 1,000 unit IVPUSH PRN PRN PRN Reason: Heparin Heparin Sodium (Porcine) (Heparin -) 5,000 unit IVPUSH PRN PRN PRN Reason: Heparin Hydrocortisone Sodium Succinate (Solu-Cortef -) 50 mg IVPUSH Q6H-IV [facility] Propofol (Diprivan -) 1,000,000 mcg in 100 mls @ 4.79 mls/hr IVPB TITR [facility]; Protocol Last Admin: 12/04/17 08:20 Dose: 70 mcg/kg/min, 33.529 mls/hr Vancomycin HCl 1,000 mg/ (Dextrose) 250 mls @ 200 mls/hr IVPB Q24H [facility]; Protocol Meropenem 1 gm/ Dextrose 50 mls @ 200 mls/hr IVPB BID [facility] Norepinephrine Bitartrate 8, (000 mcg/ Dextrose) 250 mls @ 3.75 mls/hr IVPB TITR [facility]; Protocol Last Admin: 12/04/17 10:46 Dose: 8 mcg/min, 15 mls/hr Fentanyl 500 mcg/ Dextrose 50 mls @ 10 mls/hr IVPB TITR [facility]; Protocol Heparin Sodium (Porcine) 25, (000 unit/ Sodium Chloride) 250 mls @ 10 mls/hr IV TITR [facility]; Protocol Stop: 12/04/17 20:00 Vasopressin 50 units/ Sodium (Chloride) 50 mls @ 2 mls/hr IVPB ASDIR [facility]; Protocol Insulin Aspart (Novolog Vial Sliding Scale -) 1 vial SQ ACHS [facility]; Protocol Last Admin: 12/04/17 06:39 Dose: 12 units Insulin Detemir (Levemir Vial) 15 units SQ BID@0700,2200 [facility] Last Admin: 12/04/17 06:33 Dose: 15 units Midazolam HCl (Versed -) 2 mg IVPUSH Q2H PRN PRN Reason: TACHYCARDIA Last Admin: 12/03/17 15:15 Dose: 2 mg Mupirocin (Bactroban Ointment (For Decolonization) -) 1 applic NS BID [facility] Stop: 12/04/17 21:59 Last Admin: 12/04/17 10:01 Dose: 1 applic Polyethylene Glycol (Miralax (For Daily Use) -) 17 gm NGT BID [facility] Last Admin: 12/04/17 10:04 Dose: Not Given Senna (Senna Oral Solution -) 8.8 mg PO HS [facility] Last Admin: 12/03/17 23:24 Dose: Not Given Tamsulosin HCl (Flomax -) 0.4 mg PO DAILY@0830 [facility] Last Admin: 12/04/17 10:01 Dose: 0.4 mg ASSESSMENT/PLAN: A 67 y.o. M w/ PMHx. ILD, chronic hypoxic respiratory failure (on 2L NC at home) , recurrent PNA, SLE/lupus, HTN, DM2, BPH, presents to the ICU with acute hypoxic respiratory failure 2/2 PNA and hypervolemia. #Pulmonology -Acute hypoxic respiratory failure 2/2 PNA and hypervolemia Given 1 dose of Lasix 40mg overnight D/C Lasix 40mg BID D/C-ed Zosyn Started Vancomycin for MRSA coverage One-time dose of Fluconazole for empiric fungal coverage One-time Levaquin and Merrem dose for empiric Psuedomonas coverage F/u Sputum Cx. and Blood Cx. Pt. currently intubated on Propofol and Fentanyl. D/C-ed Versed Consider trying a sedation vacation to assess mental status in AM Weaned off dopamine D/C-ed Solu-medrol c/w Duonebs c/w [facility] Palliative Care Consult appreciated. #Nephrology -BURKE on CKD Cr. now 1.8 decreased from 2.1 BUN over 150 Nephrology consult (Dr. Sparrow) appreciated- Dialysis not indicated at this time as Pt. is not in metabolic acidosis, hyperkalemic or fluid overloaded. We are unable to assess for uremic encephalopathy at this time as Pt. is intubated. Pt. BP is tenous necessitating pressors and therefore HD will likely be harmful. Pt. is very sensitive to being fluid overloaded because of his lung disease and therefore we cannot bolus Pt. prior to HD. LDH: 264 UA -, though growing moderate yeast FeNA: 0.4% indicating pre-renal disease FUrea: 21.6% indicating pre-renal disease (I used the BUN of 150, however the higher the BUN the more likely it is pre-renal disease) Haptoglobin: 286 F/u Renal US #Gastroenterology -Constipation Increase Miralax to BID Started Senna D/C Reglan d/t nephrotoxicity and in light of Pt.s BURKE -Diverticulosis -stable monitor for bleeding and worsening abdominal pain monitor stool for constipation #Infectious Disease -Pyrexia w/ associated Leukocytosis to 33k D/C-ed Zosyn, Started Vancomycin for MRSA coverage BCx. positive for yeast--> D/Renato Diflucan 200mg (renally dosed)---> started Capsofungin because of Diflucan interaction with Amiodarone causing QT- prolongation. One-time dose of Fluconazole for empiric fungal coverage One-time Levaquin and Merrem dose for empiric Psuedomonas coverage F/u Sputum Cx. and Blood Cx. Random Vanc level is 7.2, 10pm dose ordered today. -Sepsis 2/2 PNA-resolved? D/C Zosyn f/u Legionella Ag #Cardiology -Hypotension c/w Levophed and Vasopressin to maintain MAP over 65, can try to titrate down as tolerated Started Hydrocortisone 50mg Q6H and Fludrocortisone 0.05mg Daily -Afib w/ RVR Given 1 doses amiodarone C/w Digoxin 0.125mg Daily F/U Dioxin level in AM -HTN Hold Losartan 100mg, Norvasc, 10mg and Metoprolol 100mg as Pt. is hypotensive A-line placed for better BP monitoring #Urology -BPH c/w Flomax #Endocrinology -DM2 ISS BGM #F/E/N -D/C IVF, restrict fluids, all medications converted to double concentrated to minimize fluid intake. -monitor electrolytes and replete as needed -D/c-ed Glucerna, started Nepro tube feeds with 60ml free water flushes ( increased from 30ml 12/02/17-per Dr. Sparrow) -D/C Lasix #PPx. -DVT D/C Heparin drip will c/w drip b/c of potential tracheostomy and PEG placement next week, then can start Eliquis 5mg BID Monitor PTT, last PTT: 69.7 Visit type - Emergency Visit Emergency Visit: Yes ED Registration Date: 11/21/17 Care time: The patient presented to the Emergency Department on the above date and was hospitalized for further evaluation of their emergent condition. - New Patient This patient is new to me today: No - Critical Care Critical Care patient: Yes Total Critical Care Time (in minutes): 42 Critical Care Statement: The care of this patient involved high complexity decision making to prevent further life threatening deterioration of the patient 's condition and/or to evaluate & treat vital organ system(s) failure or risk of failure. - Discharge Referral Referred to [facility] Med P.C.: No
[2017-12-04] MEDS ORDERED: methylPREDNISolone NA SUCC 40 MG/1 ML VIAL IVPUSH SCH (12:30)
[2017-12-04] MEDS: WATER IVPB SCH ×2 (12:49→15:14)
[2017-12-04] MEDS: FENTANYL IVPB SCH ×2 (12:49→15:14)
[2017-12-04] MEDS: DEXTROSE 5% IVPB SCH ×2 (12:49→15:14)
--- NOTE | 2017-12-04 12:59 | PN ---
Progress Note, Physician History of Present Illness: Events noted. Pt further decompensated last night, spoke with ICU. He developed low grade fevers, increased wbc 33K, further hypotension and rapid AFib, currently on vasopressor. Pt is intubated, sedated. Broader antibiotic coverage started. - Current Medication List Current Medications: Active Medications Acetaminophen (Tylenol -) 650 mg PO Q6H PRN PRN Reason: PAIN OR FEVER Last Admin: 12/03/17 15:51 Dose: 650 mg Albuterol Sulfate (Ventolin 0.083% Nebulizer Soln -) 1 amp NEB Q8H PRN PRN Reason: SHORT OF BREATH/WHEEZING Last Admin: 12/04/17 00:40 Dose: 1 amp Albuterol/Ipratropium (Duoneb -) 1 amp NEB RQID [facility] Last Admin: 12/04/17 11:52 Dose: 1 amp Chlorhexidine Gluconate (Hibiclens For Decolonization -) 1 applic TP HS [facility] Last Admin: 12/03/17 21:29 Dose: 1 applic Fludrocortisone Acetate (Florinef -) 0.05 mg PO DAILY [facility] Last Admin: 12/04/17 10:07 Dose: 0.05 mg Furosemide (Lasix Injection -) 40 mg IVPUSH DAILY [facility] Last Admin: 12/04/17 10:03 Dose: Not Given Heparin Sodium (Porcine) (Heparin -) 1,000 unit IVPUSH PRN PRN PRN Reason: Heparin Heparin Sodium (Porcine) (Heparin -) 5,000 unit IVPUSH PRN PRN PRN Reason: Heparin Hydrocortisone Sodium Succinate (Solu-Cortef -) 50 mg IVPUSH Q6H-IV [facility] Propofol (Diprivan -) 1,000,000 mcg in 100 mls @ 4.79 mls/hr IVPB TITR [facility]; Protocol Last Admin: 12/04/17 08:20 Dose: 70 mcg/kg/min, 33.529 mls/hr Vancomycin HCl 1,000 mg/ (Dextrose) 250 mls @ 200 mls/hr IVPB Q24H [facility]; Protocol Meropenem 1 gm/ Dextrose 50 mls @ 200 mls/hr IVPB BID [facility] Norepinephrine Bitartrate 8, (000 mcg/ Dextrose) 250 mls @ 3.75 mls/hr IVPB TITR [facility]; Protocol Fentanyl 500 mcg/ Dextrose 50 mls @ 10 mls/hr IVPB TITR [facility]; Protocol Last Admin: 12/04/17 12:49 Dose: 50 mcg/hr, 5 mls/hr Heparin Sodium (Porcine) 25, (000 unit/ Sodium Chloride) 250 mls @ 10 mls/hr IV TITR [facility]; Protocol Stop: 12/04/17 20:00 Vasopressin 50 units/ Sodium (Chloride) 50 mls @ 2 mls/hr IVPB ASDIR [facility]; Protocol Insulin Aspart (Novolog Vial Sliding Scale -) 1 vial SQ ACHS [facility]; Protocol Last Admin: 12/04/17 06:39 Dose: 12 units Insulin Detemir (Levemir Vial) 15 units SQ BID@0700,2200 [facility] Last Admin: 12/04/17 06:33 Dose: 15 units Midazolam HCl (Versed -) 2 mg IVPUSH Q2H PRN PRN Reason: TACHYCARDIA Last Admin: 12/03/17 15:15 Dose: 2 mg Mupirocin (Bactroban Ointment (For Decolonization) -) 1 applic NS BID [facility] Stop: 12/04/17 21:59 Last Admin: 12/04/17 10:01 Dose: 1 applic Polyethylene Glycol (Miralax (For Daily Use) -) 17 gm NGT BID [facility] Last Admin: 12/04/17 10:04 Dose: Not Given Senna (Senna Oral Solution -) 8.8 mg PO HS [facility] Last Admin: 12/03/17 23:24 Dose: Not Given Tamsulosin HCl (Flomax -) 0.4 mg PO DAILY@0830 [facility] Last Admin: 12/04/17 10:01 Dose: 0.4 mg - Objective Vital Signs: Vital Signs Temperature 100.6 F H 12/04/17 08:00 Pulse Rate 59 L 12/04/17 10:44 Respiratory Rate 24 H 12/04/17 12:44 Blood Pressure 122/48 L 12/04/17 10:44 O2 Sat by Pulse Oximetry (%) 99 12/04/17 10:00 Constitutional: Yes: Other (intubated, sedated) Neck: Yes: Supple Cardiovascular: Yes: Tachycardia Respiratory: Yes: Mechanically Ventilated Gastrointestinal: Yes: Normal Bowel Sounds, Soft Genitourinary: Yes: Bates Present Extremities: Yes: WNL Integumentary: Yes: WNL Neurological: Yes: Other (on sedation) Labs: CBC, BMP 12/04/17 05:35 12/04/17 05:35 INR, PTT INR 0.99 (0.83-1.09) 12/03/17 17:50 Microbiology 11/30/17 13:30 Sputum - Endotrachea Suction/Ventilator Gram Stain - Final 11/30/17 13:30 Sputum - Endotrachea Suction/Ventilator Sputum Culture - Final NORMAL RESPIRATORY KARLA 11/24/17 05:45 Blood - Peripheral Venous Blood Culture - Final NO GROWTH AFTER 5 DAYS INCUBATION 11/24/17 05:30 Blood - Peripheral Venous Blood Culture - Final NO GROWTH AFTER 5 DAYS INCUBATION 11/21/17 11:26 Blood - Peripheral Venous Blood Culture - Final NO GROWTH AFTER 5 DAYS INCUBATION 11/21/17 11:26 Blood - Peripheral Venous Blood Culture - Final Staphylococcus Epidermidis 11/23/17 10:00 Urine - Urine Clean Catch Urine Culture - Final NO GROWTH OBTAINED 11/21/17 18:50 Urine - Urine Clean Catch Urine Culture - Final NO GROWTH OBTAINED 11/21/17 18:50 Urine For Antigen Detection Legionella Antigen - Final 11/21/17 18:50 Urine For Antigen Detection Streptococcus pneumoniae Antigen (M - Final 11/21/17 16:05 Nasopharyngeal Swab Influenza Types A,B Antigen - Final 11/21/17 16:05 Nasopharyngeal Swab - Final - ....Imaging Chest X-ray: Report Reviewed Problem List - Problems (1) BURKE (acute kidney injury) Code(s): N17.9 - ACUTE KIDNEY FAILURE, UNSPECIFIED (2) Acute and chronic respiratory failure with hypoxia Code(s): J96.21 - ACUTE AND CHRONIC RESPIRATORY FAILURE WITH HYPOXIA (3) CKD (chronic kidney disease) Code(s): N18.9 - CHRONIC KIDNEY DISEASE, UNSPECIFIED Qualifiers: Chronic kidney disease stage: stage 2 (mild) Qualified Code(s): N18.2 - Chronic kidney disease, stage 2 (mild) (4) Hypernatremia Code(s): E87.0 - HYPEROSMOLALITY AND HYPERNATREMIA (5) Pneumonia Code(s): J18.9 - PNEUMONIA, UNSPECIFIED ORGANISM Qualifiers: Lung location: unspecified part of lung (6) SLE (systemic lupus erythematosus) Code(s): M32.9 - SYSTEMIC LUPUS ERYTHEMATOSUS, UNSPECIFIED Qualifiers: Systemic lupus erythematosus organ involvement: unspecified (7) Sepsis Code(s): A41.9 - SEPSIS, UNSPECIFIED ORGANISM Qualifiers: Sepsis type: sepsis due to unspecified organism Qualified Code(s): A41.9 - Sepsis, unspecified organism Assessment/Plan Respiratory Failure - on Mech Ventilation, sedation Pneumonia/ARDS Septic Shock Fever Leukocytosis SLE BURKE HTN DM BPH -- continue Meropenem, Vancomycin -- have added Diflucan empirically -- repeat blood/urine/respiratory cultures sent -results pending -- continue monitor vitals/temp trend -- ICU management cc time: 40min
[2017-12-04] MEDS ORDERED: VASOPRESSIN 20 UNITS/ML VIAL IV ONE ×2 (13:10→18:12)
[2017-12-04] MEDS: ACETAMINOPHEN 325 MG TABLET (FP) PO PRN ×2 (13:18→21:35)
[2017-12-04] MEDS: SODIUM CHLORIDE IVPB SCH (14:06)
[2017-12-04] MEDS: VASOPRESSIN IVPB SCH (14:06)
[2017-12-04] MEDS: HEPARIN - 25,000 UNIT in SODIUM CHLORIDE 245 ML IV SCH ×2 (14:22→14:23)
[2017-12-04] MEDS: HYDROCORTISONE SOD SUCCINATE 100 MG/2 ML VIAL IVPUSH SCH ×2 (15:17→21:33)
[2017-12-04] MEDS ORDERED: ACETAMINOPHEN 1000 MG/100 ML VIAL (NON FORMULARY) IVPB ONE (16:29)
--- NOTE | 2017-12-04 17:00 | PN ---
Progress Note, Physician History of Present Illness: intubated sedated events noted on pressors - Current Medication List Current Medications: Active Medications Acetaminophen (Tylenol -) 650 mg PO Q6H PRN PRN Reason: PAIN OR FEVER Last Admin: 12/04/17 13:18 Dose: 650 mg Albuterol Sulfate (Ventolin 0.083% Nebulizer Soln -) 1 amp NEB Q8H PRN PRN Reason: SHORT OF BREATH/WHEEZING Last Admin: 12/04/17 00:40 Dose: 1 amp Albuterol/Ipratropium (Duoneb -) 1 amp NEB RQID [facility] Last Admin: 12/04/17 15:47 Dose: 1 amp Chlorhexidine Gluconate (Hibiclens For Decolonization -) 1 applic TP HS [facility] Last Admin: 12/03/17 21:29 Dose: 1 applic Chlorhexidine Gluconate (Hibiclens For Decolonization -) 1 applic TP HS [facility] Fludrocortisone Acetate (Florinef -) 0.05 mg PO DAILY [facility] Last Admin: 12/04/17 10:07 Dose: 0.05 mg Furosemide (Lasix Injection -) 40 mg IVPUSH DAILY [facility] Last Admin: 12/04/17 10:03 Dose: Not Given Heparin Sodium (Porcine) (Heparin -) 1,000 unit IVPUSH PRN PRN PRN Reason: Heparin Heparin Sodium (Porcine) (Heparin -) 5,000 unit IVPUSH PRN PRN PRN Reason: Heparin Hydrocortisone Sodium Succinate (Solu-Cortef -) 50 mg IVPUSH Q6H-IV [facility] Last Admin: 12/04/17 15:17 Dose: 50 mg Propofol (Diprivan -) 1,000,000 mcg in 100 mls @ 4.79 mls/hr IVPB TITR [facility]; Protocol Last Titration: 12/04/17 16:47 Dose: 45 mcg/kg/min, 21.555 mls/hr Vancomycin HCl 1,000 mg/ (Dextrose) 250 mls @ 200 mls/hr IVPB Q24H [facility]; Protocol Meropenem 1 gm/ Dextrose 50 mls @ 200 mls/hr IVPB BID [facility] Norepinephrine Bitartrate 8, (000 mcg/ Dextrose) 250 mls @ 3.75 mls/hr IVPB TITR [facility]; Protocol Last Titration: 12/04/17 16:51 Dose: 10 mcg/min, 18.75 mls/hr Fentanyl 500 mcg/ Dextrose 50 mls @ 10 mls/hr IVPB TITR [facility]; Protocol Last Admin: 12/04/17 15:14 Dose: Not Given Heparin Sodium (Porcine) 25, (000 unit/ Sodium Chloride) 250 mls @ 10 mls/hr IV TITR [facility]; Protocol Stop: 12/04/17 20:00 Last Admin: 12/04/17 14:23 Dose: Not Given Vasopressin 50 units/ Sodium (Chloride) 50 mls @ 2 mls/hr IVPB ASDIR [facility]; Protocol Last Admin: 12/04/17 14:06 Dose: 4 units/hr, 4 mls/hr Fluconazole (Diflucan 200 Mg/Ns Premixed Ivpb -) 100 mls @ 100 mls/hr IVPB DAILY [facility] Insulin Aspart (Novolog Vial Sliding Scale -) 1 vial SQ ACHS [facility]; Protocol Last Admin: 12/04/17 14:50 Dose: 6 units Insulin Detemir (Levemir Vial) 15 units SQ BID@0700,2200 [facility] Last Admin: 12/04/17 06:33 Dose: 15 units Midazolam HCl (Versed -) 2 mg IVPUSH Q2H PRN PRN Reason: TACHYCARDIA Last Admin: 12/03/17 15:15 Dose: 2 mg Mupirocin (Bactroban Ointment (For Decolonization) -) 1 applic NS BID [facility] Stop: 12/04/17 21:59 Last Admin: 12/04/17 10:01 Dose: 1 applic Polyethylene Glycol (Miralax (For Daily Use) -) 17 gm NGT BID [facility] Last Admin: 12/04/17 10:04 Dose: Not Given Senna (Senna Oral Solution -) 8.8 mg PO HS [facility] Last Admin: 12/03/17 23:24 Dose: Not Given Tamsulosin HCl (Flomax -) 0.4 mg PO DAILY@0830 [facility] Last Admin: 12/04/17 10:01 Dose: 0.4 mg - Objective Vital Signs: Vital Signs Temperature 101.5 F H 12/04/17 14:00 Pulse Rate 137 H 12/04/17 16:51 Respiratory Rate 25 H 12/04/17 16:49 Blood Pressure 89/54 L 12/04/17 16:51 O2 Sat by Pulse Oximetry (%) 99 12/04/17 10:00 Constitutional: Yes: Calm HENT: Yes: Atraumatic Neck: Yes: Supple Respiratory: Yes: Rhonchi Gastrointestinal: Yes: Normal Bowel Sounds Extremities: Yes: WNL Edema: Yes Edema: LLE: Trace, RLE: Trace Peripheral Pulses WNL: Yes Neurological: Yes: Other (sedated) Labs: CBC, BMP 12/04/17 05:35 12/04/17 05:35 INR, PTT INR 0.99 (0.83-1.09) 12/03/17 17:50 Problem List - Problems (1) Acute respiratory failure with hypoxia Assessment/Plan: intubated sedated on iv steroids iv abx pulmonary on board Code(s): J96.01 - ACUTE RESPIRATORY FAILURE WITH HYPOXIA (2) Pneumonia Assessment/Plan: on iv abx duo nebs id on board Code(s): J18.9 - PNEUMONIA, UNSPECIFIED ORGANISM Qualifiers: Lung location: unspecified part of lung (3) SLE (systemic lupus erythematosus) Code(s): M32.9 - SYSTEMIC LUPUS ERYTHEMATOSUS, UNSPECIFIED Qualifiers: Systemic lupus erythematosus organ involvement: unspecified (4) Sepsis Assessment/Plan: on iv abx ivf if needed bcxs and u cxs noted Code(s): A41.9 - SEPSIS, UNSPECIFIED ORGANISM Qualifiers: Sepsis type: sepsis due to unspecified organism Qualified Code(s): A41.9 - Sepsis, unspecified organism (5) CKD (chronic kidney disease) Assessment/Plan: monitor cr Code(s): N18.9 - CHRONIC KIDNEY DISEASE, UNSPECIFIED Qualifiers: Chronic kidney disease stage: stage 2 (mild) Qualified Code(s): N18.2 - Chronic kidney disease, stage 2 (mild) (6) GI bleed Assessment/Plan: resolved h/h stable Code(s): K92.2 - GASTROINTESTINAL HEMORRHAGE, UNSPECIFIED (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
[2017-12-04] MEDS ORDERED: AMIODARONE IN DEXTROSE,ISO-OSM 150 MG/100 ML BAG IVPB ONE (17:02)
[2017-12-04] MEDS ORDERED: AMIODARONE IN DEXTROSE,ISO-OSM 360 MG/200 ML BAG IVPB SCH (17:15)
[2017-12-04] MEDS ORDERED: dilTIAZem HCL 50 MG/10 ML - 10 ML VIAL IVPUSH ONE (17:59)
[2017-12-04] MEDS ORDERED: dilTIAZem HCL 125 MG/25 ML - 25 ML VIAL ONE (17:59)
[2017-12-04] MEDS ORDERED: AMIODARONE HCL 150 MG/3 ML VIAL ONE ×2 (18:06)
[2017-12-04] MEDS ORDERED: VANCOMYCIN 1 GM PREMIX - 1 GM/200 ML BAG IVPB ONE (18:09)
[2017-12-04] MEDS ORDERED: DAPTOMYCIN 420 MG in SODIUM CHLORIDE 50 ML IVPB ONE (18:30)
[2017-12-04 19:18] LABS: HEMOGLOBIN 11.5 GM/dL (11.7-16.9); MCH 30.3 pg (25.7-33.7); MCHC 31.1 g/dl (32.0-35.9); MEAN CELL VOLUME 97.6 fl (80-96); MEAN PLT VOLUME 11.7 fl (7.5-11.1); PLATELET COUNT 70 K/MM3 (134-434); RBC 3.79 M/mm3 (4.00-5.60); RDW 16.2 % (11.9-15.9); WHITE BLOOD COUNT 15.5 K/mm3 (4.0-10.0)
[2017-12-04 19:27] LABS: INR 1.2 (0.83-1.09); PROTHROMBIN TIME (PATIENT) 14.2 SEC (9.7-13.0)
[2017-12-04 19:29] LABS: ACTIVATED PTT 96.3 SECONDS (25.2-36.5)
--- NOTE | 2017-12-04 20:10 | PN ---
Progress Note (short form) - Note Progress Note: shortly before change of shift patient experienced a large BM that appeared like melena. He was also noted to be oozing blood form insulin injection site on L shoulder. When he was suctioned, pink sputum was noted in tubing. due to concern for bleeding, stat labs were ordered and hep gtt was held. Hgb is 11.5, platelets dropped form 114 to 70 (could be due to sepsis or DIC). fibrinogen is wnl 481, ptt is 96, either due to the hep gtt or DIC. DDimer is p/d but expected to be high due to sepsis. Stool occult blood is p/d. On physical exam patient is still oozing from L shoulder nadhas a hematoma on his R shoulder but is not pbserver to be bleeding form oral mucous membranes. There is no hematuria and no further BM. He is rate controlled AF on Amoiodarine gtt. His pressor requirement have not changed. It is unclear whether this is early DIC, hep induced bleed or HIT (although having been on hep for pnly 24 hr, it would be HIT type 1 and unlikley to be clinicaly significant. Heparin induced platelet Ab sent. In light of the labs and clinical picture, patient is not a candidate for platelet of ffp at this time. Will monitor vitals and recheck labs in 4 hr. holding hep gtt due to bleeding risk Problem List - Problems (1) Acute and chronic respiratory failure with hypoxia Code(s): J96.21 - ACUTE AND CHRONIC RESPIRATORY FAILURE WITH HYPOXIA (2) Acute respiratory failure with hypoxia Code(s): J96.01 - ACUTE RESPIRATORY FAILURE WITH HYPOXIA (3) Pneumonia Code(s): J18.9 - PNEUMONIA, UNSPECIFIED ORGANISM Qualifiers: Lung location: unspecified part of lung (4) Abdominal pain Code(s): R10.9 - UNSPECIFIED ABDOMINAL PAIN Qualifiers: Abdominal location: generalized Qualified Code(s): R10.84 - Generalized abdominal pain (5) Diverticulosis Code(s): K57.90 - DVRTCLOS OF INTEST, PART UNSP, W/O PERF OR ABSCESS W/O BLEED Qualifiers: Diverticulosis site: diverticulosis of large intestine Diverticulosis bleeding: diverticulosis without bleeding Qualified Code(s): K57.30 - Diverticulosis of large intestine without perforation or abscess without bleeding (6) SLE (systemic lupus erythematosus) Code(s): M32.9 - SYSTEMIC LUPUS ERYTHEMATOSUS, UNSPECIFIED Qualifiers: Systemic lupus erythematosus organ involvement: unspecified (7) Sepsis Code(s): A41.9 - SEPSIS, UNSPECIFIED ORGANISM Qualifiers: Sepsis type: sepsis due to unspecified organism Qualified Code(s): A41.9 - Sepsis, unspecified organism (8) DIC (disseminated intravascular coagulation) Code(s): D65 - DISSEMINATED INTRAVASCULAR COAGULATION (9) HIT (heparin-induced thrombocytopenia) Code(s): D75.82 - HEPARIN INDUCED THROMBOCYTOPENIA (HIT) (10) Melena Code(s): K92.1 - MELENA
[2017-12-04] MEDS: PANTOPRAZOLE SODIUM 40 MG VIAL IVPUSH SCH ×2 (21:34)
[2017-12-04] MEDS: CHLORHEXIDINE GLUCONATE 4% CLEANSER FOR DECOLONIZATION TP SCH (21:37)
[2017-12-04] MEDS: MEROPENEM 1 GM in DEXTROSE 5%-WATER - 50 ML IVPB SCH (21:41)
[2017-12-04] MEDS: SENNOSIDES 8.8 MG/5 ML BULK BOTTLE PO SCH (21:43)
[2017-12-04] MEDS ORDERED: CHLORHEXIDINE GLUCONATE 4% CLEANSER FOR DECOLONIZATION TP SCH (22:00)
[2017-12-04] MEDS ORDERED: APIXABAN 5 MG TABLET PO SCH (22:00)
[2017-12-04] MEDS ORDERED: VANCOMYCIN 1,000 MG in DEXTROSE 5%-WATER - 250 ML IVPB SCH (22:00)
[2017-12-04] MEDS: VANCOMYCIN 1 GRAM (PRE-DOCKED) 1,000 MG/250 ML BAG IVPB SCH (22:12)
[2017-12-04] MEDS ORDERED: CASPOFUNGIN ACETATE 70 MG in SODIUM CHLORIDE 250 ML IVPB ONE (23:00)
[2017-12-04] MEDS ORDERED: FLUCONAZOLE 200 MG/NS 100 ML IVPB SCH (23:00)
[2017-12-04 23:47] LABS: HEMATOCRIT 35.2 % (35.4-49); HEMOGLOBIN 10.8 GM/dL (11.7-16.9); MCH 30.4 pg (25.7-33.7); MCHC 30.8 g/dl (32.0-35.9); MEAN CELL VOLUME 98.7 fl (80-96); MEAN PLT VOLUME 11.9 fl (7.5-11.1); PLATELET COUNT 70 K/MM3 (134-434); RBC 3.57 M/mm3 (4.00-5.60); RDW 16.2 % (11.9-15.9); WHITE BLOOD COUNT 16.9 K/mm3 (4.0-10.0)
[2017-12-05 00:02] LABS: INR 1.05 (0.83-1.09); PROTHROMBIN TIME (PATIENT) 12.4 SEC (9.7-13.0)
[2017-12-05 00:05] LABS: ACTIVATED PTT 36.1 SECONDS (25.2-36.5)
--- NOTE | 2017-12-05 00:15 | CONS ---
DATE OF CONSULTATION: DATE OF DICTATION: 12/04/2017 The patient is a 67-year-old male with a past medical history of interstitial lung disease, chronic hypoxic respiratory failure on home O2, hypertension, diabetes , BPH, CAD, diastolic dysfunction, atrial fibrillation, who was admitted with left- sided pneumonia and respiratory failure, currently intubated. During the course, he was placed on heparin for atrial fibrillation and earlier today was noted to have a dark bowel movement, as per the nursing staff. There is no report of any hematemesis or hematochezia. Patient is intubated and does not give any history. PAST MEDICAL AND SURGICAL HISTORY: As listed in the HPI. ALLERGIES: No known drug allergies. HOME MEDICATIONS: Reviewed. SOCIAL HISTORY: Does not smoke, drink, or use drugs. FAMILY HISTORY: Noncontributory. REVIEW OF SYSTEMS: Negative except for pertinent positives listed in the HPI. Patient is currently intubated and sedated; therefore, that is limited. PHYSICAL EXAMINATION: Vital Signs: Temperature 100.7, pulse 128, blood pressure 126/64, pulse oximetry is 60% on ventilator. General: Intubated and sedated, no acute distress. HEENT: Anicteric sclerae. Cardiovascular: S1, S2. Regular rate and rhythm. Lungs: Bilaterally clear to auscultation with some scattered rhonchi anteriorly. Abdomen: Soft, nontender. Extremities: No edema. LABORATORY: White blood cell count 15. Yesterday it was 33 and earlier today 21. Hemoglobin 11, hematocrit 37, MCV 97, platelet count 70. INR 1.2, PT 96, PTT 14. Sodium 161, potassium 4.3, BUN 113, creatinine 1.8, glucose 312. AST 40, ALT 55 , alkaline phosphatase of 58. He has not had any recent abdominal imaging. IMPRESSION: Melena in the setting of anticoagulation with heparin. There is no sign of an overt gastrointestinal bleed at this time. This patient's course is further complicated with chronic hypoxic respiratory failure, arrhythmia, and sepsis. RECOMMENDATION: N.P.O. IV fluids. Protonix infusion. Trend CBC, hemoglobin and hematocrit q.12 while hospitalized. Avoid NSAID and anticoagulation. MICU supportive care. Considering this patient's current clinical state, will hold off on any invasive procedures at this time. Recommend further evaluation of his coagulopathy to exclude DIC. This patient will be followed by the GI Service. DO SPRING SORENSEN/[id number] MTDD
[2017-12-05] MEDS ORDERED: PT OWN MED DRAWER 7, Y5N ONE ×4 (03:02→20:06)
[2017-12-05] MEDS ORDERED: fentaNYL CITRATE 250 MCG/5 ML VIAL ONE (03:03)
[2017-12-05] MEDS: HYDROCORTISONE SOD SUCCINATE 100 MG/2 ML VIAL IVPUSH SCH ×4 (04:02→20:30)
[2017-12-05 04:05] LABS: HEMATOCRIT 35.3 % (35.4-49); HEMOGLOBIN 10.8 GM/dL (11.7-16.9); MCH 30.1 pg (25.7-33.7); MCHC 30.5 g/dl (32.0-35.9); MEAN CELL VOLUME 98.5 fl (80-96); MEAN PLT VOLUME 11.6 fl (7.5-11.1); PLATELET COUNT 79 K/MM3 (134-434); RBC 3.58 M/mm3 (4.00-5.60); RDW 16.4 % (11.9-15.9); WHITE BLOOD COUNT 20.6 K/mm3 (4.0-10.0)
[2017-12-05] MEDS: PROPOFOL 1,000,000 MCG/100 ML VIAL IVPB SCH ×2 (04:09→19:30)
[2017-12-05] MEDS: AMIODARONE IN DEXTROSE,ISO-OSM 360 MG/200 ML BAG IVPB SCH ×2 (04:13→13:00)
[2017-12-05 04:14] LABS: PROTHROMBIN TIME (PATIENT) 11.8 SEC (9.7-13.0)
[2017-12-05 04:16] LABS: ACTIVATED PTT 30.9 SECONDS (25.2-36.5)
[2017-12-05] MEDS: POLYETHYLENE GLYCOL 3350 119 GM BTL NGT SCH ×2 (06:11→10:14)
[2017-12-05] MEDS: INSULIN (LEVEMIR) 100 UNITS/ML UNITS SQ SCH ×2 (06:12→22:52)
[2017-12-05] MEDS: INSULIN SLIDING SCALE (NOVOLOG) 1 VIAL SQ SCH ×5 (06:13→21:53)
[2017-12-05] MEDS: ACETAMINOPHEN 650 MG/20.3 ML ORAL SOLUTION (CUPS) NGT PRN ×2 (06:16→20:30)
[2017-12-05] MEDS: FENTANYL IVPB SCH (06:19)
[2017-12-05] MEDS: DEXTROSE 5% IVPB SCH (06:19)
[2017-12-05] MEDS: WATER IVPB SCH (06:19)
[2017-12-05 06:31] LABS: BASO % 0.3 % (0-2.0); HEMATOCRIT 34.1 % (35.4-49); HEMOGLOBIN 10.3 GM/dL (11.7-16.9); LYMPH % 1.7 % (8-40); MCH 29.8 pg (25.7-33.7); MCHC 30.2 g/dl (32.0-35.9); MEAN CELL VOLUME 98.9 fl (80-96); MEAN PLT VOLUME 12.1 fl (7.5-11.1); MONO % 2.2 % (3.8-10.2); NEUT % 95.8 % (42.8-82.8); PLATELET COUNT 82 K/MM3 (134-434); RBC 3.45 M/mm3 (4.00-5.60); RDW 16.3 % (11.9-15.9); WHITE BLOOD COUNT 20.3 K/mm3 (4.0-10.0)
[2017-12-05 07:15] LABS: ALBUMIN 1.7 g/dl (3.4-5.0); ALK PHOS 51 U/L (45-117); ANION GAP 7 MMOL/L (8-16); BILIRUBIN,TOTAL 0.6 mg/dL (0.2-1); CALCIUM 7.6 mg/dL (8.5-10.1); CHLORIDE 113 mmol/L (98-107); CO2 37 mmol/L (21-32); CREATININE 2.2 mg/dL (0.55-1.3); GLUCOSE,RANDOM 265 mg/dL (74-106); MAGNESIUM 2.7 mg/dL (1.8-2.4); PHOSPHOROUS 5.8 mg/dL (2.5-4.9); POTASSIUM 4.4 mmol/L (3.5-5.1); SGOT/AST 42 U/L (15-37); SGPT/ALT 52 U/L (13-61); SODIUM 158 mmol/L (136-145)
[2017-12-05 07:16] LABS: ARTERIAL BLD GAS O2 SATURATION 94.7 % (90-98.9); ARTERIAL BLOOD GAS PO2 82.1 mmHg (80-100)
[2017-12-05 07:39] LABS: BLOOD UREA NITROGEN 106 mg/dL (7-18)
[2017-12-05] MEDS: ALBUTEROL SO4 2.5/IPRATROPIUM 0.5 INH SOL 3 ML VIAL.NEB. NEB SCH ×4 (08:40→21:00)
[2017-12-05 09:25] LABS: ARTERIAL BLOOD GAS PCO2 87.3 mmHg (35-45)
[2017-12-05 09:35] LABS: ARTERIAL BLD GAS O2 SATURATION 94.4 % (90-98.9); ARTERIAL BLOOD GAS BASE EXCESS 6.8 meq/l (-2-2); ARTERIAL BLOOD GAS pH 7.26 (7.35-7.45)
[2017-12-05 09:39] LABS: ALLENS TEST POSITIVE; ARTERIAL BLOOD GAS PCO2 82.8 mmHg (35-45)
[2017-12-05] MEDS: FLUDROCORTISONE ACETATE 0.1 MG TABLET (FP) PO SCH (10:13)
[2017-12-05] MEDS: FUROSEMIDE 40 MG/4 ML INJECTABLE VIAL IVPUSH SCH (10:13)
[2017-12-05] MEDS: TAMSULOSIN HCL 0.4 MG CAP PO SCH (10:13)
[2017-12-05] MEDS: PANTOPRAZOLE SODIUM 40 MG VIAL IVPUSH SCH ×2 (10:14→23:01)
--- NOTE | 2017-12-05 10:26 | EKG ---
Test Reason : Blood Pressure : / mmHG Vent. Rate : 100 BPM Atrial Rate : 100 BPM P-R Int : 130 ms QRS Dur : 090 ms QT Int : 378 ms P-R-T Axes : 045 047 -20 degrees QTc Int : 487 ms NORMAL SINUS RHYTHM INFERIOR INFARCT (CITED ON OR BEFORE 06-SEP-2017) T WAVE ABNORMALITY, CONSIDER ANTEROLATERAL ISCHEMIA ABNORMAL ECG WHEN COMPARED WITH ECG OF 03-DEC-2017 16:31, SINUS RHYTHM HAS REPLACED ATRIAL FIBRILLATION VENT. RATE HAS DECREASED BY 54 BPM Confirmed by BI GATES MD ([id number]) on 12/05/2017 10:26:06 AM Referred By: Confirmed By:BI GATES MD
--- NOTE | 2017-12-05 10:27 | PN ---
Progress Note, Physician History of Present Illness: Remains sedated on ventilator, maintained on Levophed and vasopressin gtt, remains in rapid PAF despite amio gtt. Developed melena while on heparin gtt since d/dany, spiking fevers. - Current Medication List Current Medications: Active Medications Acetaminophen (Tylenol Oral Solution -) 650 mg NGT Q6H PRN PRN Reason: PAIN LEVEL 1-5 OR FEVER Last Admin: 12/05/17 06:16 Dose: 650 mg Albuterol Sulfate (Ventolin 0.083% Nebulizer Soln -) 1 amp NEB Q8H PRN PRN Reason: SHORT OF BREATH/WHEEZING Last Admin: 12/04/17 00:40 Dose: 1 amp Albuterol/Ipratropium (Duoneb -) 1 amp NEB RQID [facility] Last Admin: 12/05/17 08:40 Dose: 1 amp Chlorhexidine Gluconate (Hibiclens For Decolonization -) 1 applic TP HS [facility] Last Admin: 12/04/17 21:37 Dose: 1 applic Fludrocortisone Acetate (Florinef -) 0.05 mg PO DAILY [facility] Last Admin: 12/05/17 10:13 Dose: 0.05 mg Furosemide (Lasix Injection -) 40 mg IVPUSH DAILY [facility] Last Admin: 12/05/17 10:13 Dose: 40 mg Hydrocortisone Sodium Succinate (Solu-Cortef -) 50 mg IVPUSH Q6H-IV [facility] Last Admin: 12/05/17 10:13 Dose: 50 mg Propofol (Diprivan -) 1,000,000 mcg in 100 mls @ 4.79 mls/hr IVPB TITR [facility]; Protocol Last Admin: 12/05/17 04:09 Dose: 45 mcg/kg/min, 21.555 mls/hr Meropenem 1 gm/ Dextrose 50 mls @ 200 mls/hr IVPB BID [facility] Last Admin: 12/04/17 21:41 Dose: 200 mls/hr Norepinephrine Bitartrate 8, (000 mcg/ Dextrose) 250 mls @ 3.75 mls/hr IVPB TITR [facility]; Protocol Last Titration: 12/04/17 19:36 Dose: 8 mcg/min, 15 mls/hr Fentanyl 500 mcg/ Dextrose 50 mls @ 10 mls/hr IVPB TITR [facility]; Protocol Last Admin: 12/05/17 06:19 Dose: 40 mcg/hr, 4 mls/hr Vasopressin 50 units/ Sodium (Chloride) 50 mls @ 2 mls/hr IVPB ASDIR [facility]; Protocol Last Titration: 12/04/17 18:32 Dose: 6 units/hr, 6 mls/hr Amiodarone HCl/Dextrose (Nexterone 360 Mg/200 Ml Bag) 360 mg in 200 mls @ 33.333 mls/hr IVPB TITR [facility]; Protocol Last Admin: 12/05/17 04:13 Dose: 1 mg/min, 33.333 mls/hr Caspofungin 50 mg/ Sodium (Chloride) 250 mls @ 250 mls/hr IVPB Q24H [facility] Vancomycin HCl (Vancomycin (Pre-Docked)) 1,000 mg in 250 mls @ 166.667 mls/hr IVPB Q24H [facility]; Protocol Last Admin: 12/04/17 22:12 Dose: 166.667 mls/hr Insulin Aspart (Novolog Vial Sliding Scale -) 1 vial SQ ACHS [facility]; Protocol Last Admin: 12/05/17 06:14 Dose: 10 units Insulin Detemir (Levemir Vial) 15 units SQ BID@0700,2200 [facility] Last Admin: 12/05/17 06:12 Dose: 15 units Midazolam HCl (Versed -) 2 mg IVPUSH Q2H PRN PRN Reason: TACHYCARDIA Last Admin: 12/03/17 15:15 Dose: 2 mg Pantoprazole Sodium (Protonix Iv) 40 mg IVPUSH BID [facility] Last Admin: 12/05/17 10:14 Dose: 40 mg Polyethylene Glycol (Miralax (For Daily Use) -) 17 gm NGT BID [facility] Last Admin: 12/05/17 10:14 Dose: Not Given Senna (Senna Oral Solution -) 8.8 mg PO HS [facility] Last Admin: 12/04/17 21:43 Dose: Not Given Tamsulosin HCl (Flomax -) 0.4 mg PO DAILY@0830 [facility] Last Admin: 12/05/17 10:13 Dose: 0.4 mg - Objective Vital Signs: Vital Signs Temperature 101.7 F H 12/05/17 01:42 Pulse Rate 118 H 12/05/17 08:00 Respiratory Rate 24 H 12/05/17 09:00 Blood Pressure 122/70 12/05/17 08:00 O2 Sat by Pulse Oximetry (%) 99 12/04/17 10:00 Constitutional: Yes: Other (Sedated) Cardiovascular: Yes: Tachycardia, Pulse Irregular Respiratory: Yes: Intubated, Mechanically Ventilated Gastrointestinal: Yes: Soft, Hypoactive Bowel Sounds, Melena Edema: No Labs: CBC, BMP 12/05/17 05:15 12/05/17 05:15 INR, PTT INR 1.00 (0.83-1.09) 12/05/17 03:30 Fibrinogen 488.0 mg/dL (238-498) 12/05/17 03:30 - ....Imaging EKG: Report Reviewed (Tele: Rapid afib) Problem List - Problems (1) Hypertension Code(s): I10 - ESSENTIAL (PRIMARY) HYPERTENSION Qualifiers: Hypertension type: essential hypertension Qualified Code(s): I10 - Essential (primary) hypertension (2) Old myocardial infarction Code(s): I25.2 - OLD MYOCARDIAL INFARCTION (3) Acute and chronic respiratory failure with hypoxia Code(s): J96.21 - ACUTE AND CHRONIC RESPIRATORY FAILURE WITH HYPOXIA (4) CKD (chronic kidney disease) Code(s): N18.9 - CHRONIC KIDNEY DISEASE, UNSPECIFIED Qualifiers: Chronic kidney disease stage: stage 2 (mild) Qualified Code(s): N18.2 - Chronic kidney disease, stage 2 (mild) (5) Pneumonia Code(s): J18.9 - PNEUMONIA, UNSPECIFIED ORGANISM Qualifiers: Lung location: unspecified part of lung (6) SLE (systemic lupus erythematosus) Code(s): M32.9 - SYSTEMIC LUPUS ERYTHEMATOSUS, UNSPECIFIED Qualifiers: Systemic lupus erythematosus organ involvement: unspecified (7) Sepsis Code(s): A41.9 - SEPSIS, UNSPECIFIED ORGANISM Qualifiers: Sepsis type: sepsis due to unspecified organism Qualified Code(s): A41.9 - Sepsis, unspecified organism (8) Hypernatremia Code(s): E87.0 - HYPEROSMOLALITY AND HYPERNATREMIA (9) Paroxysmal atrial fibrillation with rapid ventricular response Code(s): I48.0 - PAROXYSMAL ATRIAL FIBRILLATION (10) Melena Code(s): K92.1 - MELENA Assessment/Plan 09/09/2017 Echo: Normal LV size and fxn, normal RV size and fxn, mild AR, MR, TR RVSP 30-40 mmHg 11/02/2017 Myoview: Moderate inferoapical infarct with vandana-infarct ischemia , LVEF 57% 1. Acute on Chronic Hypoxic and hypercapneic Respiratory Failure due to end stage ILD 2. Pneumonia 3. Septic shock 4. Interstitial Lung Disease 5. Acute on chronic diastolic heart failure euvolemic 6. Paroxysmal atrial fibrillation with RVR [id number]-> SR off heparin gtt due to melena 7. Acute on CKD due to hypotension and renal hypoperfusion 8. CAD post OR with abnormal MPI 9. HTN 10. DM 11. BPH 12. Hypernatremia 13. Melena in context of anticoagulation->stress ulcers PLAN: 1. Placed on amio gtt for rate-control, may use renal-dosed digoxin with monitor dig level for additional rate-control, avoid amiodarone long-term given ILD 2. Heparin gtt d/dany due to melena 3. Free water flushes to correct free water deficit, diuresis as needed with monitor renal recovery 2. Wean Levophed and vasopressin gtt to maintain MAP>65 mmHg 3. Resume ARB and beta charles as hemodynamics tolerate once off of pressors and renal fxn stabilizes 4. Empiric abx and antifungal course, bronchodilators and IV steroids with GI protection as per pulmonary service 5. Ventilator wean as tolerated, enteral feeds held per GI, DVT/GI prophylaxis, may need trach
--- NOTE | 2017-12-05 10:38 | EKG ---
Test Reason : Blood Pressure : / mmHG Vent. Rate : 154 BPM Atrial Rate : 147 BPM P-R Int : 000 ms QRS Dur : 086 ms QT Int : 290 ms P-R-T Axes : 000 026 -80 degrees QTc Int : 464 ms ATRIAL FIBRILLATION WITH RAPID VENTRICULAR RESPONSE INFERIOR INFARCT (CITED ON OR BEFORE 06-SEP-2017) MARKED ST ABNORMALITY, POSSIBLE ANTEROLATERAL SUBENDOCARDIAL INJURY ABNORMAL ECG WHEN COMPARED WITH ECG OF 21-NOV-2017 11:55, ATRIAL FIBRILLATION HAS REPLACED SINUS RHYTHM ST DEPRESSION IN INFERIOR AND ANTEROLATERAL LEADS ST NOW DEPRESSED IN ANTEROLATERAL LEADS VENT. RATE HAS INCREASED Confirmed by BI GATES MD ([id number]) on 12/05/2017 10:37:56 AM Referred By: Confirmed By:BI GATES MD
[2017-12-05] MEDS: MEROPENEM 1 GM in DEXTROSE 5%-WATER - 50 ML IVPB SCH ×2 (10:41→21:53)
--- NOTE | 2017-12-05 11:20 | PN ---
Progress Note (short form) - Note Progress Note: Renal follow up for BURKE Pt seen and examined in the ICU yesterdays events reviewed, pt with rapid afib requring amiodarone gtt again making urine but urine output is decreasing CVP is 10 pt is sedated, on vaospressin, levophed gtt Vital Signs Temperature 101.7 F H 12/05/17 01:42 Pulse Rate 114 H 12/05/17 10:00 Respiratory Rate 20 12/05/17 10:00 Blood Pressure 129/62 12/05/17 10:00 O2 Sat by Pulse Oximetry (%) 99 12/04/17 10:00 Intake & Output 12/02/17 12/03/17 12/04/17 12/05/17 23:59 23:59 23:59 23:59 Intake Total 3340 6004 3073 1554 Output Total 1999 3800 1800 700 Balance 1340 2204 1273 854 Weight 71.923 kg 74.5 kg 75.568 kg 74.707 kg NAD sedated on vent via ET tube RRR Course Bs soft NT/ND no bladder distension No LE edema, clubbing or cyanosis CBC, BMP 12/05/17 05:15 12/05/17 05:15 Current Medications Acetaminophen (Tylenol Oral Solution -) 650 mg NGT Q6H PRN PRN Reason: PAIN LEVEL 1-5 OR FEVER Last Admin: 12/05/17 06:16 Dose: 650 mg Albuterol Sulfate (Ventolin 0.083% Nebulizer Soln -) 1 amp NEB Q8H PRN PRN Reason: SHORT OF BREATH/WHEEZING Last Admin: 12/04/17 00:40 Dose: 1 amp Albuterol/Ipratropium (Duoneb -) 1 amp NEB RQID [facility] Last Admin: 12/05/17 08:40 Dose: 1 amp Chlorhexidine Gluconate (Hibiclens For Decolonization -) 1 applic TP HS [facility] Last Admin: 12/04/17 21:37 Dose: 1 applic Fludrocortisone Acetate (Florinef -) 0.05 mg PO DAILY [facility] Last Admin: 12/05/17 10:13 Dose: 0.05 mg Furosemide (Lasix Injection -) 40 mg IVPUSH DAILY [facility] Last Admin: 12/05/17 10:13 Dose: 40 mg Hydrocortisone Sodium Succinate (Solu-Cortef -) 50 mg IVPUSH Q6H-IV [facility] Last Admin: 12/05/17 10:13 Dose: 50 mg Propofol (Diprivan -) 1,000,000 mcg in 100 mls @ 4.79 mls/hr IVPB TITR [facility]; Protocol Last Admin: 12/05/17 04:09 Dose: 45 mcg/kg/min, 21.555 mls/hr Meropenem 1 gm/ Dextrose 50 mls @ 200 mls/hr IVPB BID [facility] Last Admin: 12/05/17 10:41 Dose: 200 mls/hr Norepinephrine Bitartrate 8, (000 mcg/ Dextrose) 250 mls @ 3.75 mls/hr IVPB TITR [facility]; Protocol Last Titration: 12/04/17 19:36 Dose: 8 mcg/min, 15 mls/hr Fentanyl 500 mcg/ Dextrose 50 mls @ 10 mls/hr IVPB TITR [facility]; Protocol Last Admin: 12/05/17 06:19 Dose: 40 mcg/hr, 4 mls/hr Vasopressin 50 units/ Sodium (Chloride) 50 mls @ 2 mls/hr IVPB ASDIR [facility]; Protocol Last Titration: 12/04/17 18:32 Dose: 6 units/hr, 6 mls/hr Amiodarone HCl/Dextrose (Nexterone 360 Mg/200 Ml Bag) 360 mg in 200 mls @ 33.333 mls/hr IVPB TITR [facility]; Protocol Last Admin: 12/05/17 04:13 Dose: 1 mg/min, 33.333 mls/hr Caspofungin 50 mg/ Sodium (Chloride) 250 mls @ 250 mls/hr IVPB Q24H [facility] Vancomycin HCl (Vancomycin (Pre-Docked)) 1,000 mg in 250 mls @ 166.667 mls/hr IVPB Q24H [facility]; Protocol Last Admin: 12/04/17 22:12 Dose: 166.667 mls/hr Insulin Aspart (Novolog Vial Sliding Scale -) 1 vial SQ ACHS [facility]; Protocol Last Admin: 12/05/17 06:14 Dose: 10 units Insulin Detemir (Levemir Vial) 15 units SQ BID@0700,2200 [facility] Last Admin: 12/05/17 06:12 Dose: 15 units Midazolam HCl (Versed -) 2 mg IVPUSH Q2H PRN PRN Reason: TACHYCARDIA Last Admin: 12/03/17 15:15 Dose: 2 mg Pantoprazole Sodium (Protonix Iv) 40 mg IVPUSH BID [facility] Last Admin: 12/05/17 10:14 Dose: 40 mg Polyethylene Glycol (Miralax (For Daily Use) -) 17 gm NGT BID [facility] Last Admin: 12/05/17 10:14 Dose: Not Given Senna (Senna Oral Solution -) 8.8 mg PO HS [facility] Last Admin: 12/04/17 21:43 Dose: Not Given Tamsulosin HCl (Flomax -) 0.4 mg PO DAILY@0830 [facility] Last Admin: 12/05/17 10:13 Dose: 0.4 mg 67yo man with a PMH of HTN, DM, BPH and SLE. He was brought in to ER with worsening SOB and found to have respiratory failure from PNA/ARDS with BURKE and hypernatremia #BURKE secondary to renal hypoprofusion in setting of sepsis and intravascular volume depletion #Hypernatremia secondary to volume depletion/water deficit #Respiratory failure from ARDS/PNA #Sepsis #Hyperkalemia Cr rising in the last 24 hours CVP is at goal on Lasix once daily trend urine output, BUN/Cr BUN improving likely due to steroid tapering keep MAP > 65 Dose all meds for CrCl less then 20 avoid nephrotoxins and IV contrast no acute need for [employer] at the present time continue free water with tube feeds Jaswant Sparrow DO
--- NOTE | 2017-12-05 12:33 | PN ---
Teaching Attending Note Name of Resident: James Vasquez ATTENDING PHYSICIAN STATEMENT I saw and evaluated the patient. I reviewed the resident's note and discussed the case with the resident. I agree with the resident's findings and plan as documented. SUBJECTIVE: Pt seen and examined in the ICU. Remains intubated, sedated. Still with atrial fibrillation with rapid rates. Persistent fevers. Remains on levophed and vasopressin gtts. OBJECTIVE: Vital Signs Period Temp Pulse Resp BP Sys/Paul Pulse Ox Last 24 Hr 100.7 F-102.1 F 65-138 20-27 88-154/36-70 Intake & Output 12/02/17 12/03/17 12/04/17 12/05/17 23:59 23:59 23:59 23:59 Intake Total 3340 6004 3073 1554 Output Total 1999 3800 1800 700 Balance 1340 2204 1273 854 Weight 71.923 kg 74.5 kg 75.568 kg 74.707 kg Gen: intubated, sedated Heart: tachycardic, irregular Lung: bilateral rhonchi, wheezes Abd: soft, nontender Ext: + edema CBC, BMP 12/05/17 05:15 12/05/17 05:15 Active Medications Acetaminophen (Tylenol Oral Solution -) 650 mg NGT Q6H PRN PRN Reason: PAIN LEVEL 1-5 OR FEVER Last Admin: 12/05/17 06:16 Dose: 650 mg Albuterol Sulfate (Ventolin 0.083% Nebulizer Soln -) 1 amp NEB Q8H PRN PRN Reason: SHORT OF BREATH/WHEEZING Last Admin: 12/04/17 00:40 Dose: 1 amp Albuterol/Ipratropium (Duoneb -) 1 amp NEB RQID [facility] Last Admin: 12/05/17 08:40 Dose: 1 amp Chlorhexidine Gluconate (Hibiclens For Decolonization -) 1 applic TP HS [facility] Last Admin: 12/04/17 21:37 Dose: 1 applic Fludrocortisone Acetate (Florinef -) 0.05 mg PO DAILY [facility] Last Admin: 12/05/17 10:13 Dose: 0.05 mg Furosemide (Lasix Injection -) 40 mg IVPUSH DAILY [facility] Last Admin: 12/05/17 10:13 Dose: 40 mg Hydrocortisone Sodium Succinate (Solu-Cortef -) 50 mg IVPUSH Q6H-IV [facility] Last Admin: 12/05/17 10:13 Dose: 50 mg Propofol (Diprivan -) 1,000,000 mcg in 100 mls @ 4.79 mls/hr IVPB TITR [facility]; Protocol Last Admin: 12/05/17 04:09 Dose: 45 mcg/kg/min, 21.555 mls/hr Meropenem 1 gm/ Dextrose 50 mls @ 200 mls/hr IVPB BID [facility] Last Admin: 12/05/17 10:41 Dose: 200 mls/hr Norepinephrine Bitartrate 8, (000 mcg/ Dextrose) 250 mls @ 3.75 mls/hr IVPB TITR [facility]; Protocol Last Titration: 12/04/17 19:36 Dose: 8 mcg/min, 15 mls/hr Fentanyl 500 mcg/ Dextrose 50 mls @ 10 mls/hr IVPB TITR [facility]; Protocol Last Admin: 12/05/17 06:19 Dose: 40 mcg/hr, 4 mls/hr Vasopressin 50 units/ Sodium (Chloride) 50 mls @ 2 mls/hr IVPB ASDIR [facility]; Protocol Last Titration: 12/04/17 18:32 Dose: 6 units/hr, 6 mls/hr Amiodarone HCl/Dextrose (Nexterone 360 Mg/200 Ml Bag) 360 mg in 200 mls @ 33.333 mls/hr IVPB TITR [facility]; Protocol Last Admin: 12/05/17 04:13 Dose: 1 mg/min, 33.333 mls/hr Caspofungin 50 mg/ Sodium (Chloride) 250 mls @ 250 mls/hr IVPB Q24H [facility] Vancomycin HCl (Vancomycin (Pre-Docked)) 1,000 mg in 250 mls @ 166.667 mls/hr IVPB Q24H [facility]; Protocol Last Admin: 12/04/17 22:12 Dose: 166.667 mls/hr Insulin Aspart (Novolog Vial Sliding Scale -) 1 vial SQ ACHS [facility]; Protocol Last Admin: 12/05/17 06:14 Dose: 10 units Insulin Detemir (Levemir Vial) 15 units SQ BID@0700,2200 [facility] Last Admin: 12/05/17 06:12 Dose: 15 units Midazolam HCl (Versed -) 2 mg IVPUSH Q2H PRN PRN Reason: TACHYCARDIA Last Admin: 12/03/17 15:15 Dose: 2 mg Pantoprazole Sodium (Protonix Iv) 40 mg IVPUSH BID [facility] Last Admin: 12/05/17 10:14 Dose: 40 mg Polyethylene Glycol (Miralax (For Daily Use) -) 17 gm NGT BID [facility] Last Admin: 12/05/17 10:14 Dose: Not Given Senna (Senna Oral Solution -) 8.8 mg PO HS [facility] Last Admin: 12/04/17 21:43 Dose: Not Given Sevelamer Carbonate (Renvela Powder Packet -) 0.8 gm NGT BID [facility] Tamsulosin HCl (Flomax -) 0.4 mg PO DAILY@0830 [facility] Last Admin: 12/05/17 10:13 Dose: 0.4 mg ASSESSMENT AND PLAN: Acute on Chronic Hypoxic and Hypercapneic Respiratory Failure Advanced Interstitial Lung Disease Pneumonia Fungemia Septic Shock Paroxysmal Atrial Fibrillation with RVR Acute on Chronic Diastolic Heart Failure GI Bleed Thrombocytopenia CAD HTN DM - continue antibiotics, antifungals per ID - f/u cultures - IVF to keep CVP 8-12 - titrate pressors to maintain MAP >65 - continue stress dose steroids - rate control with amiodarone gtt - hold anticoagulation due to active GI bleed - monitor CBC - transfuse as needed - taper FiO2 to keep SpO2>90% - low tidal volume ventilation 6cc/kg/IBW or less - allow permissive hypercapnea - keep Pplat <30 - sedate for vent synchrony - enteral feeds - DVT/GI prophylaxis - poor prognosis, continue discussions regarding goals of care critical care time spent in reviewing chart, evaluating patient and formulating plan 35 min
[2017-12-05 13:14] LABS: PLATELET ESTIMATE DECREASED
[2017-12-05] MEDS: NOREPINEPHRINE BITARTRATE 8,000 MCG in DEXTROSE 5%-WATER - 242 ML IVPB SCH (13:45)
[2017-12-05] MEDS: VASOPRESSIN IVPB SCH (14:00)
[2017-12-05] MEDS: SODIUM CHLORIDE IVPB SCH (14:00)
--- NOTE | 2017-12-05 14:39 | PN ---
Physical Exam: SUBJECTIVE: Patient seen and examined. Pt. given Tylenol for on going fever fever, had 1 maroon colored BM over night( 2 total marroon colored BMs). Pt. still requiring Vasopressing and Levophed for BP support in addition to Fludrocortisone and Hydrocortisone. OBJECTIVE: Vital Signs Period Temp Pulse Resp BP Sys/Paul Pulse Ox Last 24 Hr 100.7 F-102.1 F 75-138 20-27 88-154/36-70 GENERAL: The patient is sedated not arousable to tactile stimuli, in no acute distress. HEAD: Normal with no signs of trauma. EYES: PERRL, [place], sclera anicteric, conjunctiva clear. No ptosis. ENT: Ears normal, nares patent, oropharynx clear without exudates, dry mucous membranes. LUNGS: Right lower axilla crackles, diffuse decreased coarse breath sounds, velcro-like sound on respirations HEART: Tachycardic irregular rate and rhythm, S1, S2 ABDOMEN: Soft, nontender, nondistended, normoactive bowel sounds, no guarding EXTREMITIES: 2+ dorsal pedal pulses, warm, well-perfused, no calf tenderness, no edema, 2<sec. capillary refill time. SKIN: Warm, dry, normal turgor Laboratory Results - last 24 hr 12/02/17 12/02/17 12/02/17 12:30 22:01 22:03 WBC RBC Hgb Hct MCV MCH MCHC RDW Plt Count MPV Absolute Neuts (auto) Neutrophils % Neutrophils % (Manual) Band Neutrophils % Lymphocytes % Lymphocytes % (Manual) Monocytes % Monocytes % (Manual) Eosinophils % Eosinophils % (Manual) Basophils % Basophils % (Manual) Myelocytes % (Man) Promyelocytes % (Man) Blast Cells % (Manual) Nucleated RBC % Metamyelocytes Platelet Estimate PT with INR INR PTT (Actin FS) Fibrinogen D-Dimer Puncture Site ABG pH ABG pCO2 at Pt Temp ABG pO2 at Pt Temp ABG HCO3 ABG O2 Sat (Measured) ABG O2 Content ABG Base Excess Bassem Test O2 Delivery Device Oxygen Flow Rate Vent Mode Vent Rate Mechanical Rate PEEP Pressure Support Vent Sodium Potassium Chloride Carbon Dioxide Anion Gap BUN Creatinine Creat Clearance w eGFR POC Glucometer [phone] Random Glucose Calcium Phosphorus Magnesium Total Bilirubin AST ALT Alkaline Phosphatase Total Protein Albumin Urine Eosinophils None seen Random Vancomycin Vancomycin Pre-Dose Digoxin Blood Type Antibody Screen 12/03/17 12/04/17 12/04/17 05:26 00:42 11:40 WBC 16.9 H RBC 3.57 L Hgb 10.8 L Hct 35.2 L MCV 98.7 H MCH 30.4 MCHC 30.8 L RDW 16.2 H Plt Count 70 L D MPV 11.9 H D Absolute Neuts (auto) Neutrophils % Neutrophils % (Manual) Band Neutrophils % Lymphocytes % Lymphocytes % (Manual) Monocytes % Monocytes % (Manual) Eosinophils % Eosinophils % (Manual) Basophils % Basophils % (Manual) Myelocytes % (Man) Promyelocytes % (Man) Blast Cells % (Manual) Nucleated RBC % Metamyelocytes Platelet Estimate PT with INR INR PTT (Actin FS) Fibrinogen D-Dimer Puncture Site ABG pH ABG pCO2 at Pt Temp ABG pO2 at Pt Temp ABG HCO3 ABG O2 Sat (Measured) ABG O2 Content ABG Base Excess Bassem Test O2 Delivery Device Oxygen Flow Rate Vent Mode Vent Rate Mechanical Rate PEEP Pressure Support Vent Sodium Potassium Chloride Carbon Dioxide Anion Gap BUN Creatinine Creat Clearance w eGFR POC Glucometer > 400 > 400 Random Glucose Calcium Phosphorus Magnesium Total Bilirubin AST ALT Alkaline Phosphatase Total Protein Albumin Urine Eosinophils Random Vancomycin Vancomycin Pre-Dose Digoxin Blood Type Antibody Screen 12/04/17 12/04/17 12/04/17 11:40 11:40 16:00 WBC RBC Hgb Hct MCV MCH MCHC RDW Plt Count MPV Absolute Neuts (auto) Neutrophils % Neutrophils % (Manual) Band Neutrophils % Lymphocytes % Lymphocytes % (Manual) Monocytes % Monocytes % (Manual) Eosinophils % Eosinophils % (Manual) Basophils % Basophils % (Manual) Myelocytes % (Man) Promyelocytes % (Man) Blast Cells % (Manual) Nucleated RBC % Metamyelocytes Platelet Estimate PT with INR 12.40 INR 1.05 PTT (Actin FS) 36.1 Fibrinogen 481.0 D-Dimer > 5000 H Puncture Site ABG pH ABG pCO2 at Pt Temp ABG pO2 at Pt Temp ABG HCO3 ABG O2 Sat (Measured) ABG O2 Content ABG Base Excess Bassem Test O2 Delivery Device Oxygen Flow Rate Vent Mode Vent Rate Mechanical Rate PEEP Pressure Support Vent Sodium Potassium Chloride Carbon Dioxide Anion Gap BUN Creatinine Creat Clearance w eGFR POC Glucometer Random Glucose Calcium Phosphorus Magnesium Total Bilirubin AST ALT Alkaline Phosphatase Total Protein Albumin Urine Eosinophils Random Vancomycin 7.2 L Vancomycin Pre-Dose Digoxin Blood Type Antibody Screen 12/04/17 12/04/17 12/04/17 16:17 19:00 19:00 WBC 15.5 H RBC 3.79 L Hgb 11.5 L Hct 37.0 MCV 97.6 H MCH 30.3 MCHC 31.1 L RDW 16.2 H Plt Count 70 L MPV 11.7 H Absolute Neuts (auto) Neutrophils % Neutrophils % (Manual) Band Neutrophils % Lymphocytes % Lymphocytes % (Manual) Monocytes % Monocytes % (Manual) Eosinophils % Eosinophils % (Manual) Basophils % Basophils % (Manual) Myelocytes % (Man) Promyelocytes % (Man) Blast Cells % (Manual) Nucleated RBC % Metamyelocytes Platelet Estimate PT with INR 14.20 H INR 1.20 H PTT (Actin FS) 96.3 H Fibrinogen D-Dimer Puncture Site ABG pH ABG pCO2 at Pt Temp ABG pO2 at Pt Temp ABG HCO3 ABG O2 Sat (Measured) ABG O2 Content ABG Base Excess Bassem Test O2 Delivery Device Oxygen Flow Rate Vent Mode Vent Rate Mechanical Rate PEEP Pressure Support Vent Sodium Potassium Chloride Carbon Dioxide Anion Gap BUN Creatinine Creat Clearance w eGFR POC Glucometer [phone] Random Glucose Calcium Phosphorus Magnesium Total Bilirubin AST ALT Alkaline Phosphatase Total Protein Albumin Urine Eosinophils Random Vancomycin Vancomycin Pre-Dose Digoxin Blood Type Antibody Screen 12/04/17 12/04/17 12/04/17 19:00 19:00 19:00 WBC RBC Hgb Hct MCV MCH MCHC RDW Plt Count MPV Absolute Neuts (auto) Neutrophils % Neutrophils % (Manual) Band Neutrophils % Lymphocytes % Lymphocytes % (Manual) Monocytes % Monocytes % (Manual) Eosinophils % Eosinophils % (Manual) Basophils % Basophils % (Manual) Myelocytes % (Man) Promyelocytes % (Man) Blast Cells % (Manual) Nucleated RBC % Metamyelocytes Platelet Estimate PT with INR Cancelled INR Cancelled PTT (Actin FS) Fibrinogen 481.0 D-Dimer Puncture Site ABG pH ABG pCO2 at Pt Temp ABG pO2 at Pt Temp ABG HCO3 ABG O2 Sat (Measured) ABG O2 Content ABG Base Excess Bassem Test O2 Delivery Device Oxygen Flow Rate Vent Mode Vent Rate Mechanical Rate PEEP Pressure Support Vent Sodium Potassium Chloride Carbon Dioxide Anion Gap BUN Creatinine Creat Clearance w eGFR POC Glucometer Random Glucose Calcium Phosphorus Magnesium Total Bilirubin AST ALT Alkaline Phosphatase Total Protein Albumin Urine Eosinophils Random Vancomycin Vancomycin Pre-Dose Digoxin Blood Type A POSITIVE Antibody Screen Negative 12/04/17 12/04/17 12/04/17 19:00 20:44 21:17 WBC RBC Hgb Hct MCV MCH MCHC RDW Plt Count MPV Absolute Neuts (auto) Neutrophils % Neutrophils % (Manual) Band Neutrophils % Lymphocytes % Lymphocytes % (Manual) Monocytes % Monocytes % (Manual) Eosinophils % Eosinophils % (Manual) Basophils % Basophils % (Manual) Myelocytes % (Man) Promyelocytes % (Man) Blast Cells % (Manual) Nucleated RBC % Metamyelocytes Platelet Estimate PT with INR INR PTT (Actin FS) Fibrinogen D-Dimer 6554 H Puncture Site ABG pH ABG pCO2 at Pt Temp ABG pO2 at Pt Temp ABG HCO3 ABG O2 Sat (Measured) ABG O2 Content ABG Base Excess Bassem Test O2 Delivery Device Oxygen Flow Rate Vent Mode Vent Rate Mechanical Rate PEEP Pressure Support Vent Sodium Potassium Chloride Carbon Dioxide Anion Gap BUN Creatinine Creat Clearance w eGFR POC Glucometer [phone] Random Glucose Calcium Phosphorus Magnesium Total Bilirubin AST ALT Alkaline Phosphatase Total Protein Albumin Urine Eosinophils Random Vancomycin Vancomycin Pre-Dose 5.6 L Digoxin Blood Type Antibody Screen 12/05/17 12/05/17 12/05/17 03:30 03:30 03:30 WBC 20.6 H RBC 3.58 L Hgb 10.8 L Hct 35.3 L MCV 98.5 H MCH 30.1 MCHC 30.5 L RDW 16.4 H Plt Count 79 L MPV 11.6 H Absolute Neuts (auto) Neutrophils % Neutrophils % (Manual) Band Neutrophils % Lymphocytes % Lymphocytes % (Manual) Monocytes % Monocytes % (Manual) Eosinophils % Eosinophils % (Manual) Basophils % Basophils % (Manual) Myelocytes % (Man) Promyelocytes % (Man) Blast Cells % (Manual) Nucleated RBC % Metamyelocytes Platelet Estimate PT with INR 11.80 INR 1.00 PTT (Actin FS) 30.9 Fibrinogen 488.0 D-Dimer > 5000 H Puncture Site ABG pH ABG pCO2 at Pt Temp ABG pO2 at Pt Temp ABG HCO3 ABG O2 Sat (Measured) ABG O2 Content ABG Base Excess Bassem Test O2 Delivery Device Oxygen Flow Rate Vent Mode Vent Rate Mechanical Rate PEEP Pressure Support Vent Sodium Potassium Chloride Carbon Dioxide Anion Gap BUN Creatinine Creat Clearance w eGFR POC Glucometer Random Glucose Calcium Phosphorus Magnesium Total Bilirubin AST ALT Alkaline Phosphatase Total Protein Albumin Urine Eosinophils Random Vancomycin Vancomycin Pre-Dose Digoxin Blood Type Antibody Screen 12/05/17 12/05/17 12/05/17 04:33 05:15 05:15 WBC RBC Hgb Hct MCV MCH MCHC RDW Plt Count MPV Absolute Neuts (auto) Neutrophils % Neutrophils % (Manual) Band Neutrophils % Lymphocytes % Lymphocytes % (Manual) Monocytes % Monocytes % (Manual) Eosinophils % Eosinophils % (Manual) Basophils % Basophils % (Manual) Myelocytes % (Man) Promyelocytes % (Man) Blast Cells % (Manual) Nucleated RBC % Metamyelocytes Platelet Estimate PT with INR INR PTT (Actin FS) 31.1 Fibrinogen D-Dimer Puncture Site ABG pH ABG pCO2 at Pt Temp ABG pO2 at Pt Temp ABG HCO3 ABG O2 Sat (Measured) ABG O2 Content ABG Base Excess Bassem Test O2 Delivery Device Oxygen Flow Rate Vent Mode Vent Rate Mechanical Rate PEEP Pressure Support Vent Sodium 158 H Potassium 4.4 Chloride 113 H Carbon Dioxide 37 H Anion Gap 7 L BUN 106 H* Creatinine 2.2 H Creat Clearance w eGFR 29.83 POC Glucometer [phone] Random Glucose 265 H Calcium 7.6 L Phosphorus 5.8 H Magnesium 2.7 H Total Bilirubin 0.6 AST 42 H ALT 52 Alkaline Phosphatase 51 Total Protein 5.0 L Albumin 1.7 L Urine Eosinophils Random Vancomycin Vancomycin Pre-Dose Digoxin 1.82 Blood Type Antibody Screen 12/05/17 12/05/17 12/05/17 05:15 06:20 09:27 WBC 20.3 H RBC 3.45 L Hgb 10.3 L Hct 34.1 L MCV 98.9 H MCH 29.8 MCHC 30.2 L RDW 16.3 H Plt Count 82 L MPV 12.1 H Absolute Neuts (auto) 19.4 H Neutrophils % 95.8 H Neutrophils % (Manual) 93.3 H Band Neutrophils % 1.9 Lymphocytes % 1.7 L D Lymphocytes % (Manual) 4.8 L Monocytes % 2.2 L Monocytes % (Manual) 0 L D Eosinophils % 0.0 D Eosinophils % (Manual) 0.0 Basophils % 0.3 Basophils % (Manual) 0.0 Myelocytes % (Man) 0 D Promyelocytes % (Man) 0 Blast Cells % (Manual) 0 Nucleated RBC % 0 Metamyelocytes 0 Platelet Estimate Decreased PT with INR INR PTT (Actin FS) Fibrinogen D-Dimer Puncture Site Arterial line ABG pH 7.00 L* D 7.26 L D ABG pCO2 at Pt Temp 87.3 H* D 82.8 H* ABG pO2 at Pt Temp 82.1 79.0 L ABG HCO3 36.3 H 35.5 H ABG O2 Sat (Measured) 94.7 94.4 ABG O2 Content 13.9 L 12.7 L ABG Base Excess No Result Required. 6.8 H Bassem Test Not applicable Positive O2 Delivery Device Ventilation Mech vent Oxygen Flow Rate Ventilation 260% Vent Mode A/c Vent Rate 24 24 Mechanical Rate Yes PEEP 8.0 5.0 Pressure Support Vent 420 Sodium Potassium Chloride Carbon Dioxide Anion Gap BUN Creatinine Creat Clearance w eGFR POC Glucometer Random Glucose Calcium Phosphorus Magnesium Total Bilirubin AST ALT Alkaline Phosphatase Total Protein Albumin Urine Eosinophils Random Vancomycin Vancomycin Pre-Dose Digoxin Blood Type Antibody Screen Active Medications Current Medications Acetaminophen (Tylenol Oral Solution -) 650 mg NGT Q6H PRN PRN Reason: PAIN LEVEL 1-5 OR FEVER Last Admin: 12/05/17 06:16 Dose: 650 mg Albuterol Sulfate (Ventolin 0.083% Nebulizer Soln -) 1 amp NEB Q8H PRN PRN Reason: SHORT OF BREATH/WHEEZING Last Admin: 12/04/17 00:40 Dose: 1 amp Albuterol/Ipratropium (Duoneb -) 1 amp NEB RQID [facility] Last Admin: 12/05/17 12:50 Dose: 1 amp Chlorhexidine Gluconate (Hibiclens For Decolonization -) 1 applic TP HS [facility] Last Admin: 12/04/17 21:37 Dose: 1 applic Fludrocortisone Acetate (Florinef -) 0.05 mg PO DAILY [facility] Last Admin: 12/05/17 10:13 Dose: 0.05 mg Furosemide (Lasix Injection -) 40 mg IVPUSH DAILY [facility] Last Admin: 12/05/17 10:13 Dose: 40 mg Hydrocortisone Sodium Succinate (Solu-Cortef -) 50 mg IVPUSH Q6H-IV [facility] Last Admin: 12/05/17 10:13 Dose: 50 mg Propofol (Diprivan -) 1,000,000 mcg in 100 mls @ 4.79 mls/hr IVPB TITR [facility]; Protocol Last Admin: 12/05/17 04:09 Dose: 45 mcg/kg/min, 21.555 mls/hr Meropenem 1 gm/ Dextrose 50 mls @ 200 mls/hr IVPB BID [facility] Last Admin: 12/05/17 10:41 Dose: 200 mls/hr Norepinephrine Bitartrate 8, (000 mcg/ Dextrose) 250 mls @ 3.75 mls/hr IVPB TITR [facility]; Protocol Last Titration: 12/04/17 19:36 Dose: 8 mcg/min, 15 mls/hr Fentanyl 500 mcg/ Dextrose 50 mls @ 10 mls/hr IVPB TITR [facility]; Protocol Last Admin: 12/05/17 06:19 Dose: 40 mcg/hr, 4 mls/hr Vasopressin 50 units/ Sodium (Chloride) 50 mls @ 2 mls/hr IVPB ASDIR [facility]; Protocol Last Titration: 12/04/17 18:32 Dose: 6 units/hr, 6 mls/hr Amiodarone HCl/Dextrose (Nexterone 360 Mg/200 Ml Bag) 360 mg in 200 mls @ 33.333 mls/hr IVPB TITR [facility]; Protocol Last Admin: 12/05/17 04:13 Dose: 1 mg/min, 33.333 mls/hr Caspofungin 50 mg/ Sodium (Chloride) 250 mls @ 250 mls/hr IVPB Q24H [facility] Vancomycin HCl (Vancomycin (Pre-Docked)) 1,000 mg in 250 mls @ 166.667 mls/hr IVPB Q24H [facility]; Protocol Last Admin: 12/04/17 22:12 Dose: 166.667 mls/hr Insulin Aspart (Novolog Vial Sliding Scale -) 1 vial SQ ACHS [facility]; Protocol Last Admin: 12/05/17 06:14 Dose: 10 units Insulin Detemir (Levemir Vial) 15 units SQ BID@0700,2200 [facility] Last Admin: 12/05/17 06:12 Dose: 15 units Midazolam HCl (Versed -) 2 mg IVPUSH Q2H PRN PRN Reason: TACHYCARDIA Last Admin: 12/03/17 15:15 Dose: 2 mg Pantoprazole Sodium (Protonix Iv) 40 mg IVPUSH BID [facility] Last Admin: 12/05/17 10:14 Dose: 40 mg Polyethylene Glycol (Miralax (For Daily Use) -) 17 gm NGT BID [facility] Last Admin: 12/05/17 10:14 Dose: Not Given Senna (Senna Oral Solution -) 8.8 mg PO HS [facility] Last Admin: 12/04/17 21:43 Dose: Not Given Sevelamer Carbonate (Renvela Powder Packet -) 0.8 gm NGT BID [facility] Tamsulosin HCl (Flomax -) 0.4 mg PO DAILY@0830 [facility] Last Admin: 12/05/17 10:13 Dose: 0.4 mg ASSESSMENT/PLAN: A 67 y.o. M w/ PMHx. ILD, chronic hypoxic respiratory failure (on 2L NC at home) , recurrent PNA, SLE/lupus, HTN, DM2, BPH, presents to the ICU with acute hypoxic respiratory failure 2/2 PNA and hypervolemia. #Pulmonology -Acute hypoxic respiratory failure 2/2 PNA and hypervolemia Given 1 dose of Lasix 40mg overnight D/C Lasix 40mg BID D/C-ed Zosyn Started Vancomycin for MRSA coverage One-time dose of Fluconazole for empiric fungal coverage One-time Levaquin and Merrem dose for empiric Psuedomonas coverage F/u Sputum Cx. and Blood Cx. Pt. currently intubated on Propofol and Fentanyl. D/C-ed Versed Consider trying a sedation vacation to assess mental status in AM Weaned off dopamine D/C-ed Solu-medrol c/w Duonebs c/w [facility] Palliative Care Consult appreciated. #Nephrology -BURKE on CKD Please Dose all meds for CrCl of 20 Extreme caution with Nephrotoxic medications Cr. now 2.2 increased from 1.8 BUN over 150 Nephrology consult (Dr. Sparrow) appreciated- Dialysis not indicated at this time as Pt. is not in metabolic acidosis, hyperkalemic or fluid overloaded. We are unable to assess for uremic encephalopathy at this time as Pt. is intubated. Pt. BP is tenous necessitating pressors and therefore HD will likely be harmful. Pt. is very sensitive to being fluid overloaded because of his lung disease and therefore we cannot bolus Pt. prior to HD. LDH: 264 UA -, though growing moderate yeast FeNA: 0.4% indicating pre-renal disease FUrea: 21.6% indicating pre-renal disease (I used the BUN of 150, however the higher the BUN the more likely it is pre-renal disease) Haptoglobin: 286 Renal US wnl, small bilateral cysts, no hydronephrosis #Gastroenterology -Constipation Increase Miralax to BID Started Senna D/C Reglan d/t nephrotoxicity and in light of Pt.s BURKE -Diverticulosis -stable monitor for bleeding and worsening abdominal pain monitor stool for constipation #Infectious Disease -Pyrexia w/ associated Leukocytosis to 33k F/U RBC morphology. If Schistocytes come back above 2+, indicative of 10-30% schistocytes which could indicate early stages of DIC- ordered per Dr. Ivy. Started Vancomycin for MRSA coverage BCx. positive for yeast--> D/Renato Diflucan 200mg (renally dosed)---> started Capsofungin because of Diflucan interaction with Amiodarone causing QT- prolongation. One-time dose of Fluconazole for empiric fungal coverage One-time Levaquin and Merrem dose for empiric Psuedomonas coverage F/u Sputum Cx. and Blood Cx. Random Vanc level is 7.2, 10pm dose ordered today. -Sepsis 2/2 PNA-resolved? D/C Zosyn Legionella Ag - #Cardiology -Hypotension c/w Levophed and Vasopressin to maintain MAP over 65, can try to titrate down as tolerated Started Hydrocortisone 50mg Q6H and Fludrocortisone 0.05mg Daily -Afib w/ RVR Given 1 doses amiodarone C/w Digoxin 0.125mg Daily Dioxin level 0.61, f/u Rpt. Digoxin level in AM -HTN Hold Losartan 100mg, Norvasc, 10mg and Metoprolol 100mg as Pt. is hypotensive A-line placed for better BP monitoring #Urology -BPH c/w Flomax #Endocrinology -DM2 ISS BGM #F/E/N -D/C IVF, restrict fluids, all medications converted to double concentrated to minimize fluid intake. -monitor electrolytes and replete as needed -D/c-ed Glucerna, started Nepro tube feeds with 60ml free water flushes ( increased from 30ml 12/02/17-per Dr. Sparrow) -D/C Lasix #PPx. -DVT D/C Heparin drip will c/w drip b/c of potential tracheostomy and PEG placement next week, then can start Eliquis 5mg BID Monitor PTT, last PTT: 69.7 Visit type - Emergency Visit Emergency Visit: Yes ED Registration Date: 11/21/17 Care time: The patient presented to the Emergency Department on the above date and was hospitalized for further evaluation of their emergent condition. - New Patient This patient is new to me today: No - Critical Care Critical Care patient: Yes Total Critical Care Time (in minutes): 42 Critical Care Statement: The care of this patient involved high complexity decision making to prevent further life threatening deterioration of the patient 's condition and/or to evaluate & treat vital organ system(s) failure or risk of failure. - Discharge Referral Referred to [facility] No
[2017-12-05 15:20] LABS: HEMATOCRIT 31.8 % (35.4-49); MCH 30.3 pg (25.7-33.7); MCHC 31.4 g/dl (32.0-35.9); MEAN CELL VOLUME 96.3 fl (80-96); MEAN PLT VOLUME 12.3 fl (7.5-11.1); PLATELET COUNT 84 K/MM3 (134-434); RBC 3.31 M/mm3 (4.00-5.60); RDW 16.5 % (11.9-15.9); WHITE BLOOD COUNT 23.6 K/mm3 (4.0-10.0)
[2017-12-05 15:28] VITALS: BMI 24.2
[2017-12-05] MEDS ORDERED: NICOTINE 21 MG/24 HOURS TOPICAL PATCH TD SCH (15:45)
[2017-12-05] MEDS: SEVELAMER CARBONATE 0.8 GM POWDER PACKET NGT SCH ×2 (15:57→23:02)
--- NOTE | 2017-12-05 16:17 | PN ---
Progress Note, Physician History of Present Illness: patient detoriated went into afib now bleeding per rectum patient on pressors patient with fungal infection - Current Medication List Current Medications: Active Medications Acetaminophen (Tylenol Oral Solution -) 650 mg NGT Q6H PRN PRN Reason: PAIN LEVEL 1-5 OR FEVER Last Admin: 12/05/17 06:16 Dose: 650 mg Albuterol Sulfate (Ventolin 0.083% Nebulizer Soln -) 1 amp NEB Q8H PRN PRN Reason: SHORT OF BREATH/WHEEZING Last Admin: 12/04/17 00:40 Dose: 1 amp Albuterol/Ipratropium (Duoneb -) 1 amp NEB RQID [facility] Last Admin: 12/05/17 12:50 Dose: 1 amp Chlorhexidine Gluconate (Hibiclens For Decolonization -) 1 applic TP HS [facility] Last Admin: 12/04/17 21:37 Dose: 1 applic Fludrocortisone Acetate (Florinef -) 0.05 mg PO DAILY [facility] Last Admin: 12/05/17 10:13 Dose: 0.05 mg Furosemide (Lasix Injection -) 40 mg IVPUSH DAILY [facility] Last Admin: 12/05/17 10:13 Dose: 40 mg Hydrocortisone Sodium Succinate (Solu-Cortef -) 50 mg IVPUSH Q6H-IV [facility] Last Admin: 12/05/17 16:06 Dose: 50 mg Propofol (Diprivan -) 1,000,000 mcg in 100 mls @ 4.79 mls/hr IVPB TITR [facility]; Protocol Last Admin: 12/05/17 04:09 Dose: 45 mcg/kg/min, 21.555 mls/hr Meropenem 1 gm/ Dextrose 50 mls @ 200 mls/hr IVPB BID [facility] Last Admin: 12/05/17 10:41 Dose: 200 mls/hr Norepinephrine Bitartrate 8, (000 mcg/ Dextrose) 250 mls @ 3.75 mls/hr IVPB TITR [facility]; Protocol Last Admin: 12/05/17 13:45 Dose: 12 mcg/min, 22.5 mls/hr Fentanyl 500 mcg/ Dextrose 50 mls @ 10 mls/hr IVPB TITR [facility]; Protocol Last Admin: 12/05/17 06:19 Dose: 40 mcg/hr, 4 mls/hr Vasopressin 50 units/ Sodium (Chloride) 50 mls @ 2 mls/hr IVPB ASDIR [facility]; Protocol Last Admin: 12/05/17 14:00 Dose: 6 units/hr, 6 mls/hr Amiodarone HCl/Dextrose (Nexterone 360 Mg/200 Ml Bag) 360 mg in 200 mls @ 33.333 mls/hr IVPB TITR [facility]; Protocol Last Admin: 12/05/17 04:13 Dose: 1 mg/min, 33.333 mls/hr Caspofungin 50 mg/ Sodium (Chloride) 250 mls @ 250 mls/hr IVPB Q24H [facility] Vancomycin HCl (Vancomycin (Pre-Docked)) 1,000 mg in 250 mls @ 166.667 mls/hr IVPB Q24H [facility]; Protocol Last Admin: 12/04/17 22:12 Dose: 166.667 mls/hr Insulin Aspart (Novolog Vial Sliding Scale -) 1 vial SQ ACHS [facility]; Protocol Last Admin: 12/05/17 12:00 Dose: 10 units Insulin Detemir (Levemir Vial) 15 units SQ BID@0700,2200 [facility] Last Admin: 12/05/17 06:12 Dose: 15 units Midazolam HCl (Versed -) 2 mg IVPUSH Q2H PRN PRN Reason: TACHYCARDIA Last Admin: 12/03/17 15:15 Dose: 2 mg Nicotine (Nicoderm Patch -) 21 mg TD DAILY [facility] Pantoprazole Sodium (Protonix Iv) 40 mg IVPUSH BID [facility] Last Admin: 12/05/17 10:14 Dose: 40 mg Polyethylene Glycol (Miralax (For Daily Use) -) 17 gm NGT BID [facility] Last Admin: 12/05/17 10:14 Dose: Not Given Senna (Senna Oral Solution -) 8.8 mg PO HS [facility] Last Admin: 12/04/17 21:43 Dose: Not Given Sevelamer Carbonate (Renvela Powder Packet -) 0.8 gm NGT BID [facility] Last Admin: 12/05/17 15:57 Dose: Not Given Tamsulosin HCl (Flomax -) 0.4 mg PO DAILY@0830 [facility] Last Admin: 12/05/17 10:13 Dose: 0.4 mg - Objective Vital Signs: Vital Signs Temperature 101.7 F H 12/05/17 01:42 Pulse Rate 114 H 12/05/17 10:00 Respiratory Rate 26 H 12/05/17 11:35 Blood Pressure 129/62 12/05/17 10:00 O2 Sat by Pulse Oximetry (%) 99 12/04/17 10:00 Constitutional: Yes: Other Cardiovascular: Yes: Pulse Irregular Respiratory: Yes: Intubated, Mechanically Ventilated Gastrointestinal: Yes: Soft, Melena Genitourinary: Yes: Bates Present Musculoskeletal: Yes: WNL Extremities: Yes: WNL Neurological: Yes: Other Psychiatric: Yes: Other Labs: CBC, BMP 12/05/17 15:00 12/05/17 05:15 INR, PTT INR 1.00 (0.83-1.09) 12/05/17 03:30 Fibrinogen 488.0 mg/dL (238-498) 12/05/17 03:30 Assessment/Plan Respiratory Failure Pneumonia Sepsis Interstitial Lung Disease HTN DM BPH fungameia beto patients condition has detoriated beto has started,on 2 pressors condition has become critical plan continue pressors monitor h and h continue antifungals resp support repeat blood cx cc 40 min
--- NOTE | 2017-12-05 17:01 | PN ---
GI Progress Note Subjective: No overt bleeding Remains intubated - Objective Vital Signs: Vital Signs Temperature 101.7 F H 12/05/17 01:42 Pulse Rate 114 H 12/05/17 16:00 Respiratory Rate 20 12/05/17 16:00 Blood Pressure 160/50 L 12/05/17 16:00 O2 Sat by Pulse Oximetry (%) 99 12/04/17 10:00 Constitutional: Other (Sedated, intubated) Cardiovascular: Yes: Tachycardia Respiratory: Yes: Diminished (at bases bilaterally) Gastrointestinal Inspection: No: Distention ...Auscultate: Yes: Normoactive Bowel Sounds ...Palpate: Yes: Soft. No: Tenderness (No grimacing upon palpation) Labs: CBC, BMP 12/05/17 15:00 12/05/17 05:15 INR, PTT INR 1.00 (0.83-1.09) 12/05/17 03:30 Fibrinogen 488.0 mg/dL (238-498) 12/05/17 03:30 Problem List - Problems (1) GI bleed Assessment/Plan: No overt bleeding with stable H/H BID PPI No GI interventions planned Patient critically ill Code(s): K92.2 - GASTROINTESTINAL HEMORRHAGE, UNSPECIFIED
[2017-12-05] MEDS ORDERED: DIGOXIN 0.5 MG/2 ML AMPUL IVPUSH SCH (18:00)
[2017-12-05 20:30] LABS: HEMATOCRIT 30.7 % (35.4-49); HEMOGLOBIN 9.5 GM/dL (11.7-16.9); MCH 29.8 pg (25.7-33.7); MCHC 30.9 g/dl (32.0-35.9); MEAN CELL VOLUME 96.6 fl (80-96); MEAN PLT VOLUME 12.2 fl (7.5-11.1); PLATELET COUNT 76 K/MM3 (134-434); RBC 3.18 M/mm3 (4.00-5.60); RDW 16.1 % (11.9-15.9)
[2017-12-05] MEDS: VANCOMYCIN 1 GRAM (PRE-DOCKED) 1,000 MG/250 ML BAG IVPB SCH (20:48)
[2017-12-05] MEDS: CHLORHEXIDINE GLUCONATE 4% CLEANSER FOR DECOLONIZATION TP SCH (22:52)
[2017-12-05] MEDS ORDERED: VASOPRESSIN 20 UNITS/ML VIAL IV ONE ×2 (22:56→22:57)
[2017-12-05] MEDS: CASPOFUNGIN ACETATE 50 MG in SODIUM CHLORIDE 250 ML IVPB SCH (23:01)
[2017-12-05] MEDS: SENNOSIDES 8.8 MG/5 ML BULK BOTTLE PO SCH (23:02)
--- NOTE | 2017-12-05 23:13 | PN ---
Progress Note, Physician History of Present Illness: intubated sedated events noted on pressors - Current Medication List Current Medications: Active Medications Acetaminophen (Tylenol Oral Solution -) 650 mg NGT Q6H PRN PRN Reason: PAIN LEVEL 1-5 OR FEVER Last Admin: 12/05/17 20:30 Dose: 650 mg Albuterol Sulfate (Ventolin 0.083% Nebulizer Soln -) 1 amp NEB Q8H PRN PRN Reason: SHORT OF BREATH/WHEEZING Last Admin: 12/04/17 00:40 Dose: 1 amp Albuterol/Ipratropium (Duoneb -) 1 amp NEB RQID [facility] Last Admin: 12/05/17 21:00 Dose: 1 amp Chlorhexidine Gluconate (Hibiclens For Decolonization -) 1 applic TP HS [facility] Last Admin: 12/05/17 22:52 Dose: 1 applic Digoxin (Lanoxin Injection -) 0.0625 mg IVPUSH Q36H [facility] Last Admin: 12/05/17 17:52 Dose: 0.0625 mg Fludrocortisone Acetate (Florinef -) 0.05 mg PO DAILY [facility] Last Admin: 12/05/17 10:13 Dose: 0.05 mg Furosemide (Lasix Injection -) 40 mg IVPUSH DAILY [facility] Last Admin: 12/05/17 10:13 Dose: 40 mg Hydrocortisone Sodium Succinate (Solu-Cortef -) 50 mg IVPUSH Q6H-IV [facility] Last Admin: 12/05/17 20:30 Dose: 50 mg Propofol (Diprivan -) 1,000,000 mcg in 100 mls @ 4.79 mls/hr IVPB TITR [facility]; Protocol Last Admin: 12/05/17 19:30 Dose: 40 mcg/kg/min, 19.16 mls/hr Meropenem 1 gm/ Dextrose 50 mls @ 200 mls/hr IVPB BID [facility] Last Admin: 12/05/17 21:53 Dose: 200 mls/hr Norepinephrine Bitartrate 8, (000 mcg/ Dextrose) 250 mls @ 3.75 mls/hr IVPB TITR [facility]; Protocol Last Admin: 12/05/17 13:45 Dose: 12 mcg/min, 22.5 mls/hr Fentanyl 500 mcg/ Dextrose 50 mls @ 10 mls/hr IVPB TITR [facility]; Protocol Last Admin: 12/05/17 06:19 Dose: 40 mcg/hr, 4 mls/hr Vasopressin 50 units/ Sodium (Chloride) 50 mls @ 2 mls/hr IVPB ASDIR [facility]; Protocol Last Admin: 12/05/17 14:00 Dose: 6 units/hr, 6 mls/hr Amiodarone HCl/Dextrose (Nexterone 360 Mg/200 Ml Bag) 360 mg in 200 mls @ 33.333 mls/hr IVPB TITR [facility]; Protocol Last Admin: 12/05/17 13:00 Dose: 0.5 mg/min, 16.667 mls/hr Caspofungin 50 mg/ Sodium (Chloride) 250 mls @ 250 mls/hr IVPB Q24H [facility] Last Admin: 12/05/17 23:01 Dose: 250 mls/hr Vancomycin HCl (Vancomycin (Pre-Docked)) 1,000 mg in 250 mls @ 166.667 mls/hr IVPB Q24H [facility]; Protocol Last Admin: 12/05/17 20:48 Dose: 166.667 mls/hr Insulin Aspart (Novolog Vial Sliding Scale -) 1 vial SQ ACHS [facility]; Protocol Last Admin: 12/05/17 21:53 Dose: 12 units Insulin Detemir (Levemir Vial) 15 units SQ BID@0700,2200 [facility] Last Admin: 12/05/17 22:52 Dose: 15 units Midazolam HCl (Versed -) 2 mg IVPUSH Q2H PRN PRN Reason: TACHYCARDIA Last Admin: 12/03/17 15:15 Dose: 2 mg Pantoprazole Sodium (Protonix Iv) 40 mg IVPUSH BID [facility] Last Admin: 12/05/17 23:01 Dose: 40 mg Polyethylene Glycol (Miralax (For Daily Use) -) 17 gm NGT BID [facility] Last Admin: 12/05/17 10:14 Dose: Not Given Senna (Senna Oral Solution -) 8.8 mg PO HS [facility] Last Admin: 12/05/17 23:02 Dose: Not Given Sevelamer Carbonate (Renvela Powder Packet -) 0.8 gm NGT BID [facility] Last Admin: 12/05/17 23:02 Dose: 0.8 gm Tamsulosin HCl (Flomax -) 0.4 mg PO DAILY@0830 [facility] Last Admin: 10/15/18 10:13 Dose: 0.4 mg - Objective Vital Signs: Vital Signs Temperature 99.9 F H 12/05/17 20:00 Pulse Rate 120 H 12/05/17 20:00 Respiratory Rate 26 H 12/05/17 21:15 Blood Pressure 127/27 L 12/05/17 20:00 O2 Sat by Pulse Oximetry (%) 98 12/05/17 20:41 HENT: Yes: Atraumatic Neck: Yes: Supple Cardiovascular: Yes: Regular Rate and Rhythm Respiratory: Yes: Rhonchi Gastrointestinal: Yes: Normal Bowel Sounds Extremities: Yes: WNL Edema: Yes Edema: LLE: 1+, RLE: 1+ Peripheral Pulses WNL: Yes Neurological: Yes: Other (sedated) Labs: CBC, BMP 12/05/17 19:45 12/05/17 05:15 INR, PTT INR 1.00 (0.83-1.09) 12/05/17 03:30 Fibrinogen 488.0 mg/dL (238-498) 12/05/17 03:30 Problem List - Problems (1) Acute respiratory failure with hypoxia Assessment/Plan: intubated sedated on iv steroids iv abx pulmonary on board Code(s): J96.01 - ACUTE RESPIRATORY FAILURE WITH HYPOXIA (2) Pneumonia Assessment/Plan: on iv abx duo nebs id on board Code(s): J18.9 - PNEUMONIA, UNSPECIFIED ORGANISM Qualifiers: Lung location: unspecified part of lung (3) SLE (systemic lupus erythematosus) Code(s): M32.9 - SYSTEMIC LUPUS ERYTHEMATOSUS, UNSPECIFIED Qualifiers: Systemic lupus erythematosus organ involvement: unspecified (4) Sepsis Assessment/Plan: on iv abx ivf if needed bcxs and u cxs noted Code(s): A41.9 - SEPSIS, UNSPECIFIED ORGANISM Qualifiers: Sepsis type: sepsis due to unspecified organism Qualified Code(s): A41.9 - Sepsis, unspecified organism (5) BURKE (acute kidney injury) Code(s): N17.9 - ACUTE KIDNEY FAILURE, UNSPECIFIED (6) Acute and chronic respiratory failure with hypoxia Code(s): J96.21 - ACUTE AND CHRONIC RESPIRATORY FAILURE WITH HYPOXIA (7) CKD (chronic kidney disease) Assessment/Plan: monitor cr Code(s): N18.9 - CHRONIC KIDNEY DISEASE, UNSPECIFIED Qualifiers: Chronic kidney disease stage: stage 2 (mild) Qualified Code(s): N18.2 - Chronic kidney disease, stage 2 (mild) (8) DIC (disseminated intravascular coagulation) Assessment/Plan: platelets decreasing monitor Code(s): D65 - DISSEMINATED INTRAVASCULAR COAGULATION (9) GI bleed Assessment/Plan: resolved h/h stable Code(s): K92.2 - GASTROINTESTINAL HEMORRHAGE, UNSPECIFIED (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) Code(s): D75.82 - HEPARIN INDUCED THROMBOCYTOPENIA (HIT) (11) Melena Code(s): K92.1 - MELENA (12) Hypernatremia Code(s): E87.0 - HYPEROSMOLALITY AND HYPERNATREMIA (13) ILD (interstitial lung disease) Code(s): J84.9 - INTERSTITIAL PULMONARY DISEASE, UNSPECIFIED (14) Paroxysmal atrial fibrillation with rapid ventricular response Code(s): I48.0 - PAROXYSMAL ATRIAL FIBRILLATION Assessment/Plan PROBLEM LIST Acute on Chronic Hypoxic and Hypercapneic Respiratory Failure Advanced Interstitial Lung Disease Pneumonia Fungemia Septic Shock Paroxysmal Atrial Fibrillation with RVR Acute on Chronic Diastolic Heart Failure GI Bleed Thrombocytopenia CAD HTN DM CC TIME 30 MIN
--- NOTE | 2017-12-05 23:29 | PN ---
Progress Note (short form) - Note Progress Note: shortly before change of shift patient experienced a large BM that appeared like melena. He was also noted to be oozing blood form insulin injection site on L shoulder. When he was suctioned, pink sputum was noted in tubing. due to concern for bleeding, stat labs were ordered and hep gtt was held. Hgb is 11.5, platelets dropped form 114 to 70 (could be due to sepsis or DIC). fibrinogen is wnl 481, ptt is 96, either due to the hep gtt or DIC. DDimer is p/d but expected to be high due to sepsis. Stool occult blood is p/d. On physical exam patient is still oozing from L shoulder nadhas a hematoma on his R shoulder but is not pbserver to be bleeding form oral mucous membranes. There is no hematuria and no further BM. He is rate controlled AF on Amoiodarine gtt. His pressor requirement have not changed. It is unclear whether this is early DIC, hep induced bleed or HIT (although having been on hep for pnly 24 hr, it would be HIT type 1 and unlikley to be clinicaly significant. Heparin induced platelet Ab sent. In light of the labs and clinical picture, patient is not a candidate for platelet of ffp at this time. Will monitor vitals and recheck labs in 4 hr. holding hep gtt due to bleeding risk 12/05 at 11pm patient noted to have supraclavicular Sq emphysema R>L. Thsi mornings cxr cut off an neck, but there may have been some sq emphysema present. concern for pneumo from ruptured bulla. no change in vent settings at this time, o2 sat 94% 420/60%/8/rate24. + breath sounds b/l in all eaton. will follow stat CXR Problem List - Problems (1) Acute and chronic respiratory failure with hypoxia Code(s): J96.21 - ACUTE AND CHRONIC RESPIRATORY FAILURE WITH HYPOXIA (2) Acute respiratory failure with hypoxia Code(s): J96.01 - ACUTE RESPIRATORY FAILURE WITH HYPOXIA (3) Pneumonia Code(s): J18.9 - PNEUMONIA, UNSPECIFIED ORGANISM Qualifiers: Lung location: unspecified part of lung (4) Abdominal pain Code(s): R10.9 - UNSPECIFIED ABDOMINAL PAIN Qualifiers: Abdominal location: generalized Qualified Code(s): R10.84 - Generalized abdominal pain (5) Diverticulosis Code(s): K57.90 - DVRTCLOS OF INTEST, PART UNSP, W/O PERF OR ABSCESS W/O BLEED Qualifiers: Diverticulosis site: diverticulosis of large intestine Diverticulosis bleeding: diverticulosis without bleeding Qualified Code(s): K57.30 - Diverticulosis of large intestine without perforation or abscess without bleeding (6) SLE (systemic lupus erythematosus) Code(s): M32.9 - SYSTEMIC LUPUS ERYTHEMATOSUS, UNSPECIFIED Qualifiers: Systemic lupus erythematosus organ involvement: unspecified (7) Sepsis Code(s): A41.9 - SEPSIS, UNSPECIFIED ORGANISM Qualifiers: Sepsis type: sepsis due to unspecified organism Qualified Code(s): A41.9 - Sepsis, unspecified organism (8) DIC (disseminated intravascular coagulation) Code(s): D65 - DISSEMINATED INTRAVASCULAR COAGULATION (9) HIT (heparin-induced thrombocytopenia) Code(s): D75.82 - HEPARIN INDUCED THROMBOCYTOPENIA (HIT) (10) Melena Code(s): K92.1 - MELENA
[2017-12-06] MEDS ORDERED: fentaNYL CITRATE 250 MCG/5 ML VIAL ONE ×3 (00:10→20:29)
[2017-12-06] MEDS: POLYETHYLENE GLYCOL 3350 119 GM BTL NGT SCH ×3 (01:33→21:20)
[2017-12-06] MEDS: AMIODARONE IN DEXTROSE,ISO-OSM 360 MG/200 ML BAG IVPB SCH (01:33)
[2017-12-06] MEDS: SODIUM CHLORIDE IVPB SCH ×3 (01:34→19:06)
[2017-12-06] MEDS: VASOPRESSIN IVPB SCH ×3 (01:34→19:06)
[2017-12-06] MEDS: WATER IVPB SCH ×5 (01:35→20:36)
[2017-12-06] MEDS: DEXTROSE 5% IVPB SCH ×5 (01:35→20:36)
[2017-12-06] MEDS: FENTANYL IVPB SCH ×5 (01:35→20:36)
[2017-12-06] MEDS ORDERED: NOREPINEPHRINE BITARTRATE 4 MG/4 ML ML IV ONE (01:38)
[2017-12-06] MEDS: HYDROCORTISONE SOD SUCCINATE 100 MG/2 ML VIAL IVPUSH SCH ×4 (03:00→20:36)
[2017-12-06 06:15] LABS: BASO % 0.3 % (0-2.0); HEMATOCRIT 28.4 % (35.4-49); LYMPH % 2.2 % (8-40); MCHC 31.9 g/dl (32.0-35.9); MONO % 2.9 % (3.8-10.2); NEUT % 94.6 % (42.8-82.8); PLATELET COUNT 68 K/MM3 (134-434); RBC 3.02 M/mm3 (4.00-5.60); RDW 15.6 % (11.9-15.9); WHITE BLOOD COUNT 23.5 K/mm3 (4.0-10.0)
--- NOTE | 2017-12-06 06:32 | PN ---
Progress Note (short form) - Note Progress Note: Chief Complaint: Events noted, notes reviewed, remains intubated, subcutaneous emphysema noted neck area, chest x-ray noted, sinus rhythm is noted History of Present Illness: Seen and examined in the ICU. Events noted, notes reviewed, remains intubated, subcutaneous emphysema noted neck area, chest x-ray noted, sinus rhythm is noted Echocardiography dated 09/09/2017 Normal LV size and fxn, normal RV size and fxn, mild AR, MR, TR RVSP 30-40 mmHg Dobutamine pharmacologic MPI study dated 11/02/2017 revealed moderate infero- apical infarct with vandana-infarct ischemia, LVEF 57% Medications: Current Medications Acetaminophen (Tylenol Oral Solution -) 650 mg NGT Q6H PRN PRN Reason: PAIN LEVEL 1-5 OR FEVER Last Admin: 12/05/17 20:30 Dose: 650 mg Albuterol Sulfate (Ventolin 0.083% Nebulizer Soln -) 1 amp NEB Q8H PRN PRN Reason: SHORT OF BREATH/WHEEZING Last Admin: 12/04/17 00:40 Dose: 1 amp Albuterol/Ipratropium (Duoneb -) 1 amp NEB RQID [facility] Last Admin: 12/05/17 21:00 Dose: 1 amp Chlorhexidine Gluconate (Hibiclens For Decolonization -) 1 applic TP HS [facility] Last Admin: 12/05/17 22:52 Dose: 1 applic Digoxin (Lanoxin Injection -) 0.0625 mg IVPUSH Q36H [facility] Last Admin: 12/05/17 17:52 Dose: 0.0625 mg Fludrocortisone Acetate (Florinef -) 0.05 mg PO DAILY [facility] Last Admin: 12/05/17 10:13 Dose: 0.05 mg Furosemide (Lasix Injection -) 40 mg IVPUSH DAILY [facility] Last Admin: 12/05/17 10:13 Dose: 40 mg Hydrocortisone Sodium Succinate (Solu-Cortef -) 50 mg IVPUSH Q6H-IV [facility] Last Admin: 12/06/17 03:00 Dose: 50 mg Propofol (Diprivan -) 1,000,000 mcg in 100 mls @ 4.79 mls/hr IVPB TITR [facility]; Protocol Last Admin: 12/05/17 19:30 Dose: 40 mcg/kg/min, 19.16 mls/hr Meropenem 1 gm/ Dextrose 50 mls @ 200 mls/hr IVPB BID [facility] Last Admin: 12/05/17 21:53 Dose: 200 mls/hr Norepinephrine Bitartrate 8, (000 mcg/ Dextrose) 250 mls @ 3.75 mls/hr IVPB TITR [facility]; Protocol Last Admin: 12/05/17 13:45 Dose: 12 mcg/min, 22.5 mls/hr Fentanyl 500 mcg/ Dextrose 50 mls @ 10 mls/hr IVPB TITR [facility]; Protocol Last Admin: 12/06/17 01:35 Dose: 40 mcg/hr, 4 mls/hr Vasopressin 50 units/ Sodium (Chloride) 50 mls @ 2 mls/hr IVPB ASDIR [facility]; Protocol Last Admin: 12/06/17 01:34 Dose: 6 units/hr, 6 mls/hr Amiodarone HCl/Dextrose (Nexterone 360 Mg/200 Ml Bag) 360 mg in 200 mls @ 33.333 mls/hr IVPB TITR [facility]; Protocol Last Admin: 12/06/17 01:33 Dose: 0.5 mg/min, 16.667 mls/hr Caspofungin 50 mg/ Sodium (Chloride) 250 mls @ 250 mls/hr IVPB Q24H [facility] Last Admin: 12/05/17 23:01 Dose: 250 mls/hr Vancomycin HCl (Vancomycin (Pre-Docked)) 1,000 mg in 250 mls @ 166.667 mls/hr IVPB Q24H [facility]; Protocol Last Admin: 12/05/17 20:48 Dose: 166.667 mls/hr Insulin Aspart (Novolog Vial Sliding Scale -) 1 vial SQ ACHS [facility]; Protocol Last Admin: 12/05/17 21:53 Dose: 12 units Insulin Detemir (Levemir Vial) 15 units SQ BID@0700,2200 [facility] Last Admin: 12/05/17 22:52 Dose: 15 units Midazolam HCl (Versed -) 2 mg IVPUSH Q2H PRN PRN Reason: TACHYCARDIA Last Admin: 12/03/17 15:15 Dose: 2 mg Pantoprazole Sodium (Protonix Iv) 40 mg IVPUSH BID [facility] Last Admin: 12/05/17 23:01 Dose: 40 mg Polyethylene Glycol (Miralax (For Daily Use) -) 17 gm NGT BID [facility] Last Admin: 12/06/17 01:33 Dose: Not Given Senna (Senna Oral Solution -) 8.8 mg PO HS [facility] Last Admin: 12/05/17 23:02 Dose: Not Given Sevelamer Carbonate (Renvela Powder Packet -) 0.8 gm NGT BID [facility] Last Admin: 12/05/17 23:02 Dose: 0.8 gm Tamsulosin HCl (Flomax -) 0.4 mg PO DAILY@0830 [facility] Last Admin: 12/05/17 10:13 Dose: 0.4 mg Review of Systems - Review of Systems Unable to obtain Vital Signs: Last Vital Signs Temp Pulse Resp BP Pulse Ox 99.8 F H 111 H 27 H 135/58 L 98 12/06/17 06:00 12/06/17 06:00 12/06/17 06:19 12/06/17 06:00 12/05/17 20:41 Intake & Output 12/03/17 12/04/17 12/05/17 12/06/17 23:59 23:59 23:59 23:59 Intake Total 6004 3073 3581.4 566.4 Output Total 3800 1800 2200 500 Balance 2204 1273 1381.4 66.4 Weight 164 lb 3.91 oz 166 lb 9.6 oz 164 lb 11.2 oz 169 lb 1.513 oz Neck: Supple Negative JVD Subcutaneous Crepitus noted Respiratory: Bilateral Scattered Rhonchi Cardiovascular: S1 S2 Regular Rate and Rhythm Gastrointestinal: Soft Benign Normal Bowel Sounds Ext: Negative Edema Labs: CBC, BMP 12/06/17 05:30 12/06/17 05:30 Hepatic Panel Total Bilirubin 0.6 mg/dL (0.2-1) 12/05/17 05:15 Direct Bilirubin 0.2 mg/dL (0.0-0.2) 12/01/17 05:30 AST 42 U/L (15-37) H 12/05/17 05:15 ALT 52 U/L (13-61) 12/05/17 05:15 Alkaline Phosphatase 51 U/L (45-117) 12/05/17 05:15 Albumin 1.7 g/dl (3.4-5.0) L 12/05/17 05:15 INR, PTT INR 1.00 (0.83-1.09) 12/05/17 03:30 Fibrinogen 488.0 mg/dL (238-498) 12/05/17 03:30 ABG Results ABG pH 7.26 (7.35-7.45) L D 12/05/17: ABG pCO2 at Pt Temp 82.8 mmHg (35-45) H* 12/05/17 ABG pO2 at Pt Temp 79.0 mmHg (80-100) L 12/05/17 ABG HCO3 35.5 meq/L (22-26) H 12/05/17 ABG O2 Sat (Measured) 94.4 % (90-98.9) 12/05/17 ABG O2 Content 12.7 % vol (15-22) L 12/05/17 ABG Base Excess 6.8 meq/l (-2-2) H 12/05/17 Assessment/Plan ASSESSMENT: 1. Acute on Chronic Hypoxic Respiratory Failure related to advanced interstitial disease and newly noted subcutaneous emphysema no clear evidence of pneumothorax, ruptured bleb vs. tracheal fracture 2. Pneumonia complicated by 3. Sepsis syndrome 4. Interstitial Lung Disease, as noted above 5. Acute on chronic class I-II NYHA classification LV diastolic heart failure, clinically improved 6. CAD post MT with abnormal MPI angina pectoris 7. Persistent atrial fibrillation rate controlled [id number] score of 3 on no A/ C related to melena 8. HTN 9. DM 10. Acute on CKD due to hypotension and renal hypoperfusion improved 11. History of BPH PLAN: 1. Diuretics as needed with caution and close monitoring of renal function 2. Lopressor hemodynamics permitting once off of pressors 3. Continue Amiodarone and D/C Digoxin 4. Bronchodilators and steroids as per pulmonary service 5. Antibiotics as per the primary team 6. Ventilator management as per the critical care team and evaluation and management of the above noted pneumothorax probably will require chest tubes Overall poor prognosis Helder Rivera M.D.
[2017-12-06] MEDS: INSULIN (LEVEMIR) 100 UNITS/ML UNITS SQ SCH ×2 (07:03→21:19)
[2017-12-06 07:06] LABS: ANION GAP 6 MMOL/L (8-16); CALCIUM 7.6 mg/dL (8.5-10.1); CHLORIDE 108 mmol/L (98-107); CO2 36 mmol/L (21-32); CREATININE 2.9 mg/dL (0.55-1.3); GLUCOSE,RANDOM 207 mg/dL (74-106); MAGNESIUM 2.8 mg/dL (1.8-2.4); PHOSPHOROUS 6.1 mg/dL (2.5-4.9); POTASSIUM 3.7 mmol/L (3.5-5.1); SODIUM 150 mmol/L (136-145)
[2017-12-06] MEDS: INSULIN SLIDING SCALE (NOVOLOG) 1 VIAL SQ SCH ×4 (07:11→21:20)
[2017-12-06] MEDS ORDERED: HEMOQUE TEST 1 EACH EACH ONE (07:35)
[2017-12-06 08:01] LABS: BLOOD UREA NITROGEN 119 mg/dL (7-18)
[2017-12-06] MEDS: ALBUTEROL SO4 2.5/IPRATROPIUM 0.5 INH SOL 3 ML VIAL.NEB. NEB SCH ×4 (08:30→21:00)
[2017-12-06 09:26] LABS: ANISOCYTOSIS 1+; MACROCYTOSIS 1+; PLATELET ESTIMATE DECREASED
[2017-12-06] MEDS ORDERED: PT OWN MED DRAWER 7, Y5N ONE (10:10)
[2017-12-06] MEDS: MEROPENEM 1 GM in DEXTROSE 5%-WATER - 50 ML IVPB SCH ×2 (10:27→21:20)
[2017-12-06] MEDS: FUROSEMIDE 40 MG/4 ML INJECTABLE VIAL IVPUSH SCH (10:28)
[2017-12-06] MEDS: AMIODARONE HCL 200 MG TABLET (FP) NGT SCH ×3 (10:28→21:19)
[2017-12-06] MEDS: TAMSULOSIN HCL 0.4 MG CAP PO SCH (10:28)
[2017-12-06] MEDS: PANTOPRAZOLE SODIUM 40 MG VIAL IVPUSH SCH ×2 (10:28→21:21)
--- NOTE | 2017-12-06 11:04 | PN ---
Progress Note (short form) - Note Progress Note: Renal follow up for BURKE Pt seen and examined in the ICU remains on vent on vasopresser making urine still requires high FiO2 Vital Signs Temperature 98.6 F 12/06/17 10:00 Pulse Rate 88 12/06/17 10:00 Respiratory Rate 22 H 12/06/17 10:00 Blood Pressure 155/60 12/06/17 10:00 O2 Sat by Pulse Oximetry (%) 98 12/06/17 10:00 Intake & Output 12/03/17 12/04/17 12/05/17 12/06/17 23:59 23:59 23:59 23:59 Intake Total 6004 3073 3581.4 566.4 Output Total 3800 1800 2200 500 Balance 2204 1273 1381.4 66.4 Weight 74.5 kg 75.568 kg 74.707 kg 76.7 kg NAD sedated on vent via ET tube RRR Course Bs soft NT/ND no bladder distension No LE edema, clubbing or cyanosis CBC, BMP 12/06/17 05:30 12/06/17 05:30 Current Medications Acetaminophen (Tylenol Oral Solution -) 650 mg NGT Q6H PRN PRN Reason: PAIN LEVEL 1-5 OR FEVER Last Admin: 12/05/17 20:30 Dose: 650 mg Albuterol Sulfate (Ventolin 0.083% Nebulizer Soln -) 1 amp NEB Q8H PRN PRN Reason: SHORT OF BREATH/WHEEZING Last Admin: 12/04/17 00:40 Dose: 1 amp Albuterol/Ipratropium (Duoneb -) 1 amp NEB RQID [facility] Last Admin: 12/06/17 08:30 Dose: 1 amp Amiodarone HCl (Cordarone -) 200 mg NGT BID [facility] Last Admin: 12/06/17 10:28 Dose: 200 mg Chlorhexidine Gluconate (Hibiclens For Decolonization -) 1 applic TP HS [facility] Last Admin: 12/05/17 22:52 Dose: 1 applic Fludrocortisone Acetate (Florinef -) 0.05 mg PO DAILY [facility] Last Admin: 12/05/17 10:13 Dose: 0.05 mg Hydrocortisone Sodium Succinate (Solu-Cortef -) 50 mg IVPUSH Q6H-IV [facility] Last Admin: 12/06/17 10:28 Dose: 50 mg Propofol (Diprivan -) 1,000,000 mcg in 100 mls @ 4.79 mls/hr IVPB TITR [facility]; Protocol Last Admin: 12/05/17 19:30 Dose: 40 mcg/kg/min, 19.16 mls/hr Meropenem 1 gm/ Dextrose 50 mls @ 200 mls/hr IVPB BID [facility] Last Admin: 12/06/17 10:27 Dose: 200 mls/hr Norepinephrine Bitartrate 8, (000 mcg/ Dextrose) 250 mls @ 3.75 mls/hr IVPB TITR [facility]; Protocol Last Admin: 12/05/17 13:45 Dose: 12 mcg/min, 22.5 mls/hr Fentanyl 500 mcg/ Dextrose 50 mls @ 10 mls/hr IVPB TITR [facility]; Protocol Last Admin: 12/06/17 01:35 Dose: 40 mcg/hr, 4 mls/hr Vasopressin 50 units/ Sodium (Chloride) 50 mls @ 2 mls/hr IVPB ASDIR [facility]; Protocol Last Admin: 12/06/17 01:34 Dose: 6 units/hr, 6 mls/hr Caspofungin 50 mg/ Sodium (Chloride) 250 mls @ 250 mls/hr IVPB Q24H [facility] Last Admin: 12/05/17 23:01 Dose: 250 mls/hr Vancomycin HCl (Vancomycin (Pre-Docked)) 1,000 mg in 250 mls @ 166.667 mls/hr IVPB Q24H [facility]; Protocol Last Admin: 12/05/17 20:48 Dose: 166.667 mls/hr Insulin Aspart (Novolog Vial Sliding Scale -) 1 vial SQ ACHS [facility]; Protocol Last Admin: 12/06/17 07:11 Dose: 6 units Insulin Detemir (Levemir Vial) 15 units SQ BID@0700,2200 [facility] Last Admin: 12/06/17 07:03 Dose: Not Given Midazolam HCl (Versed -) 2 mg IVPUSH Q2H PRN PRN Reason: TACHYCARDIA Last Admin: 12/03/17 15:15 Dose: 2 mg Pantoprazole Sodium (Protonix Iv) 40 mg IVPUSH BID [facility] Last Admin: 12/06/17 10:28 Dose: 40 mg Polyethylene Glycol (Miralax (For Daily Use) -) 17 gm NGT BID [facility] Last Admin: 12/06/17 01:33 Dose: Not Given Senna (Senna Oral Solution -) 8.8 mg PO HS [facility] Last Admin: 12/05/17 23:02 Dose: Not Given Sevelamer Carbonate (Renvela Powder Packet -) 0.8 gm NGT BID [facility] Last Admin: 12/05/17 23:02 Dose: 0.8 gm Tamsulosin HCl (Flomax -) 0.4 mg PO DAILY@0830 [facility] Last Admin: 12/06/17 10:28 Dose: 0.4 mg 67yo man with a PMH of HTN, DM, BPH and SLE. He was brought in to ER with worsening SOB and found to have respiratory failure from PNA/ARDS with BURKE and hypernatremia #BURKE secondary to renal hypoprofusion in setting of sepsis #Hypernatremia secondary to volume depletion/water deficit #Respiratory failure from ARDS/PNA #Sepsis #Hyperkalemia Renal function worsening in the last 48 hours remains non-oliguric and there is no acute indication for ACQUISITION LEAD CT results reviewed, b/l infiltrates persist would hold lasix in setting of worsening renal function keep MAP > 65 continue Abx Trend Vanco levels Continue free water with tube feeds family is agreeable to dialysis if it were warranted Jaswant Sparrow DO
[2017-12-06] MEDS: SEVELAMER CARBONATE 0.8 GM POWDER PACKET NGT SCH ×2 (11:09→21:22)
--- NOTE | 2017-12-06 12:17 | PN ---
Teaching Attending Note Name of Resident: James Vasquez ATTENDING PHYSICIAN STATEMENT I saw and evaluated the patient. I reviewed the resident's note and discussed the case with the resident. I agree with the resident's findings and plan as documented. SUBJECTIVE: Pt seen and examined in the ICU. Remains intubated, sedated on levophed and vasopressin gtts. Overnight developed subcutaneous emphysema in chest and right neck. CT chest without evidence of pneumothorax. OBJECTIVE: Vital Signs Period Temp Pulse Resp BP Sys/Paul Pulse Ox Last 24 Hr 98.6 F-99.9 F 86-120 20-30 112-160/27-68 98-98 Intake & Output 12/03/17 12/04/17 12/05/17 12/06/17 23:59 23:59 23:59 23:59 Intake Total 6004 3073 3581.4 566.4 Output Total 3800 1800 2200 500 Balance 2204 1273 1381.4 66.4 Weight 74.5 kg 75.568 kg 74.707 kg 76.7 kg Gen: intubated, sedated Heart: RRR Lung: bilateral rhonchi, rales Abd: soft, nontender Ext: UE edema CBC, BMP 12/06/17 05:30 12/06/17 05:30 Active Medications Acetaminophen (Tylenol Oral Solution -) 650 mg NGT Q6H PRN PRN Reason: PAIN LEVEL 1-5 OR FEVER Last Admin: 12/05/17 20:30 Dose: 650 mg Albuterol Sulfate (Ventolin 0.083% Nebulizer Soln -) 1 amp NEB Q8H PRN PRN Reason: SHORT OF BREATH/WHEEZING Last Admin: 12/04/17 00:40 Dose: 1 amp Albuterol/Ipratropium (Duoneb -) 1 amp NEB RQID [facility] Last Admin: 12/06/17 12:10 Dose: 1 amp Amiodarone HCl (Cordarone -) 200 mg NGT BID [facility] Last Admin: 12/06/17 10:28 Dose: 200 mg Chlorhexidine Gluconate (Hibiclens For Decolonization -) 1 applic TP HS [facility] Last Admin: 12/05/17 22:52 Dose: 1 applic Fludrocortisone Acetate (Florinef -) 0.05 mg PO DAILY [facility] Last Admin: 12/05/17 10:13 Dose: 0.05 mg Hydrocortisone Sodium Succinate (Solu-Cortef -) 50 mg IVPUSH Q6H-IV [facility] Last Admin: 12/06/17 10:28 Dose: 50 mg Propofol (Diprivan -) 1,000,000 mcg in 100 mls @ 4.79 mls/hr IVPB TITR [facility]; Protocol Last Admin: 12/05/17 19:30 Dose: 40 mcg/kg/min, 19.16 mls/hr Meropenem 1 gm/ Dextrose 50 mls @ 200 mls/hr IVPB BID [facility] Last Admin: 12/06/17 10:27 Dose: 200 mls/hr Norepinephrine Bitartrate 8, (000 mcg/ Dextrose) 250 mls @ 3.75 mls/hr IVPB TITR [facility]; Protocol Last Admin: 12/05/17 13:45 Dose: 12 mcg/min, 22.5 mls/hr Fentanyl 500 mcg/ Dextrose 50 mls @ 10 mls/hr IVPB TITR [facility]; Protocol Last Admin: 12/06/17 01:35 Dose: 40 mcg/hr, 4 mls/hr Vasopressin 50 units/ Sodium (Chloride) 50 mls @ 2 mls/hr IVPB ASDIR [facility]; Protocol Last Admin: 12/06/17 01:34 Dose: 6 units/hr, 6 mls/hr Caspofungin 50 mg/ Sodium (Chloride) 250 mls @ 250 mls/hr IVPB Q24H [facility] Last Admin: 12/05/17 23:01 Dose: 250 mls/hr Vancomycin HCl (Vancomycin (Pre-Docked)) 1,000 mg in 250 mls @ 166.667 mls/hr IVPB Q24H [facility]; Protocol Last Admin: 12/05/17 20:48 Dose: 166.667 mls/hr Insulin Aspart (Novolog Vial Sliding Scale -) 1 vial SQ ACHS [facility]; Protocol Last Admin: 12/06/17 07:11 Dose: 6 units Insulin Detemir (Levemir Vial) 15 units SQ BID@0700,2200 [facility] Last Admin: 12/06/17 07:03 Dose: Not Given Midazolam HCl (Versed -) 2 mg IVPUSH Q2H PRN PRN Reason: TACHYCARDIA Last Admin: 12/03/17 15:15 Dose: 2 mg Pantoprazole Sodium (Protonix Iv) 40 mg IVPUSH BID [facility] Last Admin: 12/06/17 10:28 Dose: 40 mg Polyethylene Glycol (Miralax (For Daily Use) -) 17 gm NGT BID [facility] Last Admin: 12/06/17 11:08 Dose: Not Given Senna (Senna Oral Solution -) 8.8 mg PO HS [facility] Last Admin: 12/05/17 23:02 Dose: Not Given Sevelamer Carbonate (Renvela Powder Packet -) 0.8 gm NGT BID [facility] Last Admin: 12/06/17 11:09 Dose: 0.8 gm Tamsulosin HCl (Flomax -) 0.4 mg PO DAILY@0830 [facility] Last Admin: 12/06/17 10:28 Dose: 0.4 mg ASSESSMENT AND PLAN: Acute on Chronic Hypoxic and Hypercapneic Respiratory Failure Advanced Interstitial Lung Disease Subcutaneous Emphysema Pneumonia Fungemia Septic Shock Paroxysmal Atrial Fibrillation with RVR Acute on Chronic Diastolic Heart Failure GI Bleed Thrombocytopenia CAD HTN DM - continue antibiotics, antifungals per ID - f/u cultures - IVF to keep CVP 8-12 - titrate pressors to maintain MAP >65 - continue stress dose steroids - rate control with amiodarone - holding anticoagulation due to active GI bleed - monitor CBC - transfuse as needed - taper FiO2 to keep SpO2>90% - low tidal volume ventilation 6cc/kg/IBW or less - allow permissive hypercapnea - keep Pplat <30 - sedate for vent synchrony - enteral feeds - DVT/GI prophylaxis - poor prognosis, continue discussions regarding goals of care critical care time spent in reviewing chart, evaluating patient and formulating plan 35 min
--- NOTE | 2017-12-06 14:51 | CONSULT ---
Consult Referred by:: Shailesh Omer Reason for Consultation:: Pneuomomediastinum - History of Present Illness Chief Complaint: 67 y/o M, with a significant past medical history of Chronic Hypoxic Respiratory Failure, pneumonia, SLE /Lupus, ILD on 2L O2, HTN, DM2, BPH , came to the hospital because of sob and fever,. patient was subsequently intubated due to sepsis and respiratory failure. On 2 pressors and dialysis due to acute renal failure. Consult was requested because of recent CT verified pneumo-mediastinum and subcutaneous emphysema. - History Source History Provided By: Patient, Family Member, Medical Record Limitations to Obtaining History: Intubated - Past Medical History Cardio/Vascular: Yes: HTN Pulmonary: Yes: Pneumonia Renal/: Yes: Renal Failure, Renal Inusuff Rheumatology: Yes: Lupus Endocrine: Yes: Diabetes Mellitus - Alcohol/Substance Use Hx Alcohol Use: No - Smoking History Smoking history: Never smoked Have you smoked in the past 12 months: No Home Medications - Allergies Allergies/Adverse Reactions: Allergies Allergy/AdvReac Type Severity Reaction Status Date / Time No Known Allergies Allergy Verified 11/21/17 10:43 - Home Medications Home Medications: Ambulatory Orders Allopurinol 300 mg PO DAILY 06/04/17 Metformin HCl [Metformin HCl ER] 500 mg PO DAILY 06/04/17 Metoprolol Succinate [Toprol Xl] 100 mg PO DAILY 06/04/17 Olmesartan/Amlodipin/Hcthiazid [Nocvbxp-Aixmjh-Rbkt 40-10-25Mg] 1 each PO DAILY 06/04/17 Tamsulosin HCl [Flomax -] 0.4 mg PO DAILY 06/04/17 Budesonide/Formeterol Fumarate [SYMBICORT 160/4.5mcg -] 2 puff IH BID inhaler 09/14/17 Tiotropium [place] [Spiriva] 1 puff IH DAILY cap 09/14/17 Family Disease History - Family Disease History Family History: Unable to Obtain (Intubated) Family Disease History: Other: Sister (His sister had lupus.) Physical Exam Vital Signs: Vital Signs Temperature 98.6 F 12/06/17 10:00 Pulse Rate 97 H 12/06/17 12:00 Respiratory Rate 27 H 12/06/17 14:26 Blood Pressure 157/58 L 12/06/17 12:00 O2 Sat by Pulse Oximetry (%) 97 12/06/17 10:00 Constitutional: Yes: No Distress, Calm Eyes: Yes: WNL HENT: Yes: WNL Neck: Yes: Other (Right sided subcutaneous emphysema) Cardiovascular: Yes: Tachycardia, S1, S2 Respiratory: Yes: Mechanically Ventilated Gastrointestinal: Yes: Normal Bowel Sounds, Abdomen, Obese Labs: CBC, BMP 12/06/17 05:30 12/06/17 05:30 Imaging - Results Cat Scan: Report Reviewed (pneumomediastinum. suncutaneous emphysema. No pneumothorax) Problem List - Problems (1) BURKE (acute kidney injury) Code(s): N17.9 - ACUTE KIDNEY FAILURE, UNSPECIFIED (2) Acute and chronic respiratory failure with hypoxia Code(s): J96.21 - ACUTE AND CHRONIC RESPIRATORY FAILURE WITH HYPOXIA (3) CKD (chronic kidney disease) Code(s): N18.9 - CHRONIC KIDNEY DISEASE, UNSPECIFIED Qualifiers: Chronic kidney disease stage: stage 2 (mild) Qualified Code(s): N18.2 - Chronic kidney disease, stage 2 (mild) (4) DIC (disseminated intravascular coagulation) Code(s): D65 - DISSEMINATED INTRAVASCULAR COAGULATION (5) GI bleed Code(s): K92.2 - GASTROINTESTINAL HEMORRHAGE, UNSPECIFIED (6) HIT (heparin-induced thrombocytopenia) Code(s): D75.82 - HEPARIN INDUCED THROMBOCYTOPENIA (HIT) (7) Hypernatremia Code(s): E87.0 - HYPEROSMOLALITY AND HYPERNATREMIA Assessment/Plan 67 y/o M with multiple medical problems including respiratory failure due to ARDS and sepsis, on pressors, was found to have pneumomediastinum and subcutaneous emphysema on CT chest. No pneumothorax. No thoracic surgery intervention at this time. Daily f/u cxr for pneumothorax. Reduce PEEP on vent. Prognosis grave
--- NOTE | 2017-12-06 15:19 | PN ---
Progress Note, Physician History of Present Illness: Pt seen and examined in the ICU. Remains intubated, sedated on levophed and vasopressin gtts. Overnight developed subcutaneous emphysema in chest and right neck. CT chest without evidence of pneumothorax. thoracic surgeon contacted nothing aggressive to be done - Current Medication List Current Medications: Active Medications Acetaminophen (Tylenol Oral Solution -) 650 mg NGT Q6H PRN PRN Reason: PAIN LEVEL 1-5 OR FEVER Last Admin: 12/05/17 20:30 Dose: 650 mg Albuterol Sulfate (Ventolin 0.083% Nebulizer Soln -) 1 amp NEB Q8H PRN PRN Reason: SHORT OF BREATH/WHEEZING Last Admin: 12/04/17 00:40 Dose: 1 amp Albuterol/Ipratropium (Duoneb -) 1 amp NEB RQID [facility] Last Admin: 12/06/17 12:10 Dose: 1 amp Amiodarone HCl (Cordarone -) 200 mg NGT BID [facility] Last Admin: 12/06/17 10:28 Dose: 200 mg Chlorhexidine Gluconate (Hibiclens For Decolonization -) 1 applic TP HS [facility] Last Admin: 12/05/17 22:52 Dose: 1 applic Fludrocortisone Acetate (Florinef -) 0.05 mg PO DAILY [facility] Last Admin: 12/05/17 10:13 Dose: 0.05 mg Hydrocortisone Sodium Succinate (Solu-Cortef -) 50 mg IVPUSH Q6H-IV [facility] Last Admin: 12/06/17 10:28 Dose: 50 mg Propofol (Diprivan -) 1,000,000 mcg in 100 mls @ 4.79 mls/hr IVPB TITR [facility]; Protocol Last Admin: 12/05/17 19:30 Dose: 40 mcg/kg/min, 19.16 mls/hr Meropenem 1 gm/ Dextrose 50 mls @ 200 mls/hr IVPB BID [facility] Last Admin: 12/06/17 10:27 Dose: 200 mls/hr Norepinephrine Bitartrate 8, (000 mcg/ Dextrose) 250 mls @ 3.75 mls/hr IVPB TITR [facility]; Protocol Last Admin: 12/05/17 13:45 Dose: 12 mcg/min, 22.5 mls/hr Fentanyl 500 mcg/ Dextrose 50 mls @ 10 mls/hr IVPB TITR [facility]; Protocol Last Admin: 12/06/17 01:35 Dose: 40 mcg/hr, 4 mls/hr Vasopressin 50 units/ Sodium (Chloride) 50 mls @ 2 mls/hr IVPB ASDIR [facility]; Protocol Last Admin: 12/06/17 11:49 Dose: 6 units/hr, 6 mls/hr Caspofungin 50 mg/ Sodium (Chloride) 250 mls @ 250 mls/hr IVPB Q24H [facility] Last Admin: 12/05/17 23:01 Dose: 250 mls/hr Vancomycin HCl (Vancomycin (Pre-Docked)) 1,000 mg in 250 mls @ 166.667 mls/hr IVPB Q24H [facility]; Protocol Last Admin: 12/05/17 20:48 Dose: 166.667 mls/hr Insulin Aspart (Novolog Vial Sliding Scale -) 1 vial SQ ACHS [facility]; Protocol Last Admin: 12/06/17 12:49 Dose: 4 units Insulin Detemir (Levemir Vial) 15 units SQ BID@0700,2200 [facility] Last Admin: 12/06/17 07:03 Dose: Not Given Midazolam HCl (Versed -) 2 mg IVPUSH Q2H PRN PRN Reason: TACHYCARDIA Last Admin: 12/03/17 15:15 Dose: 2 mg Pantoprazole Sodium (Protonix Iv) 40 mg IVPUSH BID [facility] Last Admin: 12/06/17 10:28 Dose: 40 mg Polyethylene Glycol (Miralax (For Daily Use) -) 17 gm NGT BID [facility] Last Admin: 12/06/17 11:08 Dose: Not Given Senna (Senna Oral Solution -) 8.8 mg PO HS [facility] Last Admin: 12/05/17 23:02 Dose: Not Given Sevelamer Carbonate (Renvela Powder Packet -) 0.8 gm NGT BID [facility] Last Admin: 12/06/17 11:09 Dose: 0.8 gm Tamsulosin HCl (Flomax -) 0.4 mg PO DAILY@0830 [facility] Last Admin: 12/06/17 10:28 Dose: 0.4 mg - Objective Vital Signs: Vital Signs Temperature 98.6 F 12/06/17 10:00 Pulse Rate 97 H 12/06/17 14:00 Respiratory Rate 27 H 12/06/17 14:26 Blood Pressure 156/69 12/06/17 14:00 O2 Sat by Pulse Oximetry (%) 97 12/06/17 10:00 Constitutional: Yes: Other Neck: Yes: Other (subcut emphysema) Respiratory: Yes: Intubated, Mechanically Ventilated Gastrointestinal: Yes: Soft, Hypoactive Bowel Sounds Musculoskeletal: Yes: WNL Extremities: Yes: WNL Neurological: Yes: Other Labs: CBC, BMP 12/06/17 05:30 12/06/17 05:30 INR, PTT INR 1.00 (0.83-1.09) 12/05/17 03:30 Fibrinogen 488.0 mg/dL (238-498) 12/05/17 03:30 Assessment/Plan Respiratory Failure Pneumonia Sepsis Interstitial Lung Disease HTN DM BPH fungameia beto sub cut emhysema plan continue abx monitor for bleeding resp support gi prophylaxis rest as per icu prognosis does not look good cc 40 min
[2017-12-06] MEDS: FLUDROCORTISONE ACETATE 0.1 MG TABLET (FP) PO SCH (15:35)
--- NOTE | 2017-12-06 16:03 | PN ---
Progress Note, Physician History of Present Illness: intubated sedated events noted on pressors - Current Medication List Current Medications: Active Medications Acetaminophen (Tylenol Oral Solution -) 650 mg NGT Q6H PRN PRN Reason: PAIN LEVEL 1-5 OR FEVER Last Admin: 12/05/17 20:30 Dose: 650 mg Albuterol Sulfate (Ventolin 0.083% Nebulizer Soln -) 1 amp NEB Q8H PRN PRN Reason: SHORT OF BREATH/WHEEZING Last Admin: 12/04/17 00:40 Dose: 1 amp Albuterol/Ipratropium (Duoneb -) 1 amp NEB RQID [facility] Last Admin: 12/06/17 12:10 Dose: 1 amp Amiodarone HCl (Cordarone -) 200 mg NGT BID [facility] Last Admin: 12/06/17 10:28 Dose: 200 mg Chlorhexidine Gluconate (Hibiclens For Decolonization -) 1 applic TP HS [facility] Last Admin: 12/05/17 22:52 Dose: 1 applic Fludrocortisone Acetate (Florinef -) 0.05 mg PO DAILY [facility] Last Admin: 12/06/17 15:35 Dose: 0.05 mg Hydrocortisone Sodium Succinate (Solu-Cortef -) 50 mg IVPUSH Q6H-IV [facility] Last Admin: 12/06/17 15:35 Dose: 50 mg Propofol (Diprivan -) 1,000,000 mcg in 100 mls @ 4.79 mls/hr IVPB TITR [facility]; Protocol Last Admin: 12/05/17 19:30 Dose: 40 mcg/kg/min, 19.16 mls/hr Meropenem 1 gm/ Dextrose 50 mls @ 200 mls/hr IVPB BID [facility] Last Admin: 12/06/17 10:27 Dose: 200 mls/hr Norepinephrine Bitartrate 8, (000 mcg/ Dextrose) 250 mls @ 3.75 mls/hr IVPB TITR [facility]; Protocol Last Admin: 12/05/17 13:45 Dose: 12 mcg/min, 22.5 mls/hr Fentanyl 500 mcg/ Dextrose 50 mls @ 10 mls/hr IVPB TITR [facility]; Protocol Last Admin: 12/06/17 15:43 Dose: 40 mcg/hr, 4 mls/hr Vasopressin 50 units/ Sodium (Chloride) 50 mls @ 2 mls/hr IVPB ASDIR [facility]; Protocol Last Admin: 12/06/17 11:49 Dose: 6 units/hr, 6 mls/hr Caspofungin 50 mg/ Sodium (Chloride) 250 mls @ 250 mls/hr IVPB Q24H [facility] Last Admin: 12/05/17 23:01 Dose: 250 mls/hr Vancomycin HCl (Vancomycin (Pre-Docked)) 1,000 mg in 250 mls @ 166.667 mls/hr IVPB Q24H [facility]; Protocol Last Admin: 12/05/17 20:48 Dose: 166.667 mls/hr Insulin Aspart (Novolog Vial Sliding Scale -) 1 vial SQ ACHS [facility]; Protocol Last Admin: 12/06/17 12:49 Dose: 4 units Insulin Detemir (Levemir Vial) 15 units SQ BID@0700,2200 [facility] Last Admin: 12/06/17 07:03 Dose: Not Given Midazolam HCl (Versed -) 2 mg IVPUSH Q2H PRN PRN Reason: TACHYCARDIA Last Admin: 12/03/17 15:15 Dose: 2 mg Pantoprazole Sodium (Protonix Iv) 40 mg IVPUSH BID [facility] Last Admin: 12/06/17 10:28 Dose: 40 mg Polyethylene Glycol (Miralax (For Daily Use) -) 17 gm NGT BID [facility] Last Admin: 12/06/17 11:08 Dose: Not Given Senna (Senna Oral Solution -) 8.8 mg PO HS [facility] Last Admin: 12/05/17 23:02 Dose: Not Given Sevelamer Carbonate (Renvela Powder Packet -) 0.8 gm NGT BID [facility] Last Admin: 12/06/17 11:09 Dose: 0.8 gm Tamsulosin HCl (Flomax -) 0.4 mg PO DAILY@0830 [facility] Last Admin: 12/06/17 10:28 Dose: 0.4 mg - Objective Vital Signs: Vital Signs Temperature 98.6 F 12/06/17 10:00 Pulse Rate 97 H 12/06/17 14:00 Respiratory Rate 27 H 12/06/17 14:26 Blood Pressure 156/69 12/06/17 14:00 O2 Sat by Pulse Oximetry (%) 97 12/06/17 10:00 Constitutional: Yes: Calm HENT: Yes: Atraumatic Neck: Yes: Supple Cardiovascular: Yes: Regular Rate and Rhythm Respiratory: Yes: Rhonchi Gastrointestinal: Yes: Normal Bowel Sounds Extremities: Yes: WNL Edema: Yes Edema: LLE: Trace, RLE: Trace Peripheral Pulses WNL: Yes Neurological: Yes: Other (sedated) Labs: CBC, BMP 12/06/17 05:30 12/06/17 05:30 INR, PTT INR 1.00 (0.83-1.09) 12/05/17 03:30 Fibrinogen 488.0 mg/dL (238-498) 12/05/17 03:30 Problem List - Problems (1) Acute respiratory failure with hypoxia Assessment/Plan: intubated sedated on iv steroids iv abx pulmonary on board Code(s): J96.01 - ACUTE RESPIRATORY FAILURE WITH HYPOXIA (2) Pneumonia Assessment/Plan: on iv abx duo nebs id on board Code(s): J18.9 - PNEUMONIA, UNSPECIFIED ORGANISM Qualifiers: Lung location: unspecified part of lung (3) SLE (systemic lupus erythematosus) Code(s): M32.9 - SYSTEMIC LUPUS ERYTHEMATOSUS, UNSPECIFIED Qualifiers: Systemic lupus erythematosus organ involvement: unspecified (4) Sepsis Assessment/Plan: on iv abx ivf if needed bcxs and u cxs noted Code(s): A41.9 - SEPSIS, UNSPECIFIED ORGANISM Qualifiers: Sepsis type: sepsis due to unspecified organism Qualified Code(s): A41.9 - Sepsis, unspecified organism (5) BURKE (acute kidney injury) Assessment/Plan: CR getting worse Code(s): N17.9 - ACUTE KIDNEY FAILURE, UNSPECIFIED (6) Acute and chronic respiratory failure with hypoxia Code(s): J96.21 - ACUTE AND CHRONIC RESPIRATORY FAILURE WITH HYPOXIA (7) CKD (chronic kidney disease) Assessment/Plan: monitor cr Code(s): N18.9 - CHRONIC KIDNEY DISEASE, UNSPECIFIED Qualifiers: Chronic kidney disease stage: stage 2 (mild) Qualified Code(s): N18.2 - Chronic kidney disease, stage 2 (mild) (8) DIC (disseminated intravascular coagulation) Assessment/Plan: platelets decreasing monitor Code(s): D65 - DISSEMINATED INTRAVASCULAR COAGULATION (9) GI bleed Assessment/Plan: no bleed today Code(s): K92.2 - GASTROINTESTINAL HEMORRHAGE, UNSPECIFIED (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) Code(s): D75.82 - HEPARIN INDUCED THROMBOCYTOPENIA (HIT) (11) Melena Code(s): K92.1 - MELENA Assessment/Plan diagnoses Acute on Chronic Hypoxic and Hypercapneic Respiratory Failure Advanced Interstitial Lung Disease Subcutaneous Emphysema Pneumonia Fungemia Septic Shock Paroxysmal Atrial Fibrillation with RVR Acute on Chronic Diastolic Heart Failure GI Bleed Thrombocytopenia CAD HTN DM plan - continue antibiotics, antifungals per ID - continue stress dose steroids - rate control with amiodarone - holding anticoagulation due to active GI bleed - monitor CBC - transfuse as needed - enteral feeds - DVTGI prophylaxis cc time 30 min...to evaluate patient, reviewing chart and writing orders
[2017-12-06] MEDS: NOREPINEPHRINE BITARTRATE 8,000 MCG in DEXTROSE 5%-WATER - 242 ML IVPB SCH (16:27)
--- NOTE | 2017-12-06 17:13 | PN ---
Physical Exam: SUBJECTIVE: Patient seen and examined. Pt. had 2 maroon colored BMs overnight ( 5 total). Temperature spiked to 101.3, received IV Tylenol to good effect. Pt. on Levophed, Propofol, Fentanyl and Amiodarone drips. OBJECTIVE: Vital Signs Period Temp Pulse Resp BP Sys/Paul Pulse Ox Last 24 Hr 98.6 F-99.9 F 86-120 20-30 112-165/27-69 97-98 GENERAL: Sedated, non-arousable to tactile stimuli HEAD: Normal with no signs of gross trauma. EYES: PERRL, [place] ENT: Ears normal, nares patent, dry mucous membranes. NECK: Supraclavicular subcutaneous emphysema LUNGS: Mechanical ventilation, coarse breath sounds, velcro-like sound HEART: Irregular rate and rhythm, S1, S2 without murmur ABDOMEN: Soft, nontender, nondistended, normoactive bowel sounds EXTREMITIES: 2+ dorsal pedal pulses, 1+ right radial pulse, warm, well-perfused , no edema, no calf tenderness. SKIN: Warm, dry, Laboratory Results - last 24 hr 12/04/17 12/05/17 12/05/17 05:35 14:31 17:03 WBC RBC Hgb Hct MCV MCH MCHC RDW Plt Count MPV Absolute Neuts (auto) Neutrophils % Neutrophils % (Manual) Band Neutrophils % Lymphocytes % Lymphocytes % (Manual) Monocytes % Monocytes % (Manual) Eosinophils % Eosinophils % (Manual) Basophils % Basophils % (Manual) Myelocytes % (Man) Promyelocytes % (Man) Blast Cells % (Manual) Nucleated RBC % Metamyelocytes Manual Slide Review Hypochromia Platelet Estimate Polychromasia Poikilocytosis Anisocytosis Microcytosis Macrocytosis Stomatocytes PTT (Actin FS) Sodium Potassium Chloride Carbon Dioxide Anion Gap BUN Creatinine Creat Clearance w eGFR POC Glucometer [phone] Random Glucose Calcium Phosphorus Magnesium Cortisol AM Sample 26.2 Stool Occult Blood Digoxin 12/05/17 12/05/17 12/06/17 19:45 21:45 05:18 WBC 23.0 H RBC 3.18 L Hgb 9.5 L Hct 30.7 L MCV 96.6 H MCH 29.8 MCHC 30.9 L RDW 16.1 H Plt Count 76 L MPV 12.2 H Absolute Neuts (auto) Neutrophils % Neutrophils % (Manual) Band Neutrophils % Lymphocytes % Lymphocytes % (Manual) Monocytes % Monocytes % (Manual) Eosinophils % Eosinophils % (Manual) Basophils % Basophils % (Manual) Myelocytes % (Man) Promyelocytes % (Man) Blast Cells % (Manual) Nucleated RBC % Metamyelocytes Manual Slide Review Hypochromia Platelet Estimate Polychromasia Poikilocytosis Anisocytosis Microcytosis Macrocytosis Stomatocytes PTT (Actin FS) Sodium Potassium Chloride Carbon Dioxide Anion Gap BUN Creatinine Creat Clearance w eGFR POC Glucometer [phone] Random Glucose Calcium Phosphorus Magnesium Cortisol AM Sample Stool Occult Blood Digoxin 12/06/17 12/06/17 12/06/17 05:30 05:30 05:30 WBC 23.5 H RBC 3.02 L Hgb 9.0 L Hct 28.4 L MCV 94.0 MCH 30.0 MCHC 31.9 L RDW 15.6 Plt Count 68 L MPV 12.0 H Absolute Neuts (auto) 22.2 H Neutrophils % 94.6 H Neutrophils % (Manual) 93.8 H Band Neutrophils % 3.1 Lymphocytes % 2.2 L D Lymphocytes % (Manual) 1.0 L D Monocytes % 2.9 L Monocytes % (Manual) 2 L D Eosinophils % 0.0 Eosinophils % (Manual) 0.0 Basophils % 0.3 Basophils % (Manual) 0.0 Myelocytes % (Man) 0 Promyelocytes % (Man) 0 Blast Cells % (Manual) 0 Nucleated RBC % 0 Metamyelocytes 0 Manual Slide Review Hypochromia 0 Platelet Estimate Decreased Polychromasia 1+ Poikilocytosis 1+ Anisocytosis 1+ Microcytosis 0 Macrocytosis 1+ Stomatocytes 1+ PTT (Actin FS) 31.9 Sodium 150 H Potassium 3.7 Chloride 108 H Carbon Dioxide 36 H Anion Gap 6 L BUN 119 H* Creatinine 2.9 H Creat Clearance w eGFR 21.68 POC Glucometer Random Glucose 207 H Calcium 7.6 L Phosphorus 6.1 H Magnesium 2.8 H Cortisol AM Sample Stool Occult Blood Digoxin 1.64 12/06/17 12/06/17 12/06/17 07:00 12:46 16:13 WBC RBC Hgb Hct MCV MCH MCHC RDW Plt Count MPV Absolute Neuts (auto) Neutrophils % Neutrophils % (Manual) Band Neutrophils % Lymphocytes % Lymphocytes % (Manual) Monocytes % Monocytes % (Manual) Eosinophils % Eosinophils % (Manual) Basophils % Basophils % (Manual) Myelocytes % (Man) Promyelocytes % (Man) Blast Cells % (Manual) Nucleated RBC % Metamyelocytes Manual Slide Review Hypochromia Platelet Estimate Polychromasia Poikilocytosis Anisocytosis Microcytosis Macrocytosis Stomatocytes PTT (Actin FS) Sodium Potassium Chloride Carbon Dioxide Anion Gap BUN Creatinine Creat Clearance w eGFR POC Glucometer [phone] Random Glucose Calcium Phosphorus Magnesium Cortisol AM Sample Stool Occult Blood Positive Digoxin Active Medications Current Medications Acetaminophen (Tylenol Oral Solution -) 650 mg NGT Q6H PRN PRN Reason: PAIN LEVEL 1-5 OR FEVER Last Admin: 12/05/17 20:30 Dose: 650 mg Albuterol Sulfate (Ventolin 0.083% Nebulizer Soln -) 1 amp NEB Q8H PRN PRN Reason: SHORT OF BREATH/WHEEZING Last Admin: 12/04/17 00:40 Dose: 1 amp Albuterol/Ipratropium (Duoneb -) 1 amp NEB RQID [facility] Last Admin: 12/06/17 12:10 Dose: 1 amp Amiodarone HCl (Cordarone -) 200 mg NGT BID [facility] Last Admin: 12/06/17 10:28 Dose: 200 mg Chlorhexidine Gluconate (Hibiclens For Decolonization -) 1 applic TP HS [facility] Last Admin: 12/05/17 22:52 Dose: 1 applic Fludrocortisone Acetate (Florinef -) 0.05 mg PO DAILY [facility] Last Admin: 12/06/17 15:35 Dose: 0.05 mg Hydrocortisone Sodium Succinate (Solu-Cortef -) 50 mg IVPUSH Q6H-IV [facility] Last Admin: 12/06/17 15:35 Dose: 50 mg Propofol (Diprivan -) 1,000,000 mcg in 100 mls @ 4.79 mls/hr IVPB TITR [facility]; Protocol Last Admin: 12/05/17 19:30 Dose: 40 mcg/kg/min, 19.16 mls/hr Meropenem 1 gm/ Dextrose 50 mls @ 200 mls/hr IVPB BID [facility] Last Admin: 12/06/17 10:27 Dose: 200 mls/hr Norepinephrine Bitartrate 8, (000 mcg/ Dextrose) 250 mls @ 3.75 mls/hr IVPB TITR [facility]; Protocol Last Admin: 12/06/17 16:27 Dose: Not Given Fentanyl 500 mcg/ Dextrose 50 mls @ 10 mls/hr IVPB TITR [facility]; Protocol Last Admin: 12/06/17 15:43 Dose: 40 mcg/hr, 4 mls/hr Vasopressin 50 units/ Sodium (Chloride) 50 mls @ 2 mls/hr IVPB ASDIR [facility]; Protocol Last Admin: 12/06/17 11:49 Dose: 6 units/hr, 6 mls/hr Caspofungin 50 mg/ Sodium (Chloride) 250 mls @ 250 mls/hr IVPB Q24H [facility] Last Admin: 12/05/17 23:01 Dose: 250 mls/hr Vancomycin HCl (Vancomycin (Pre-Docked)) 1,000 mg in 250 mls @ 166.667 mls/hr IVPB Q24H [facility]; Protocol Last Admin: 12/05/17 20:48 Dose: 166.667 mls/hr Insulin Aspart (Novolog Vial Sliding Scale -) 1 vial SQ ACHS [facility]; Protocol Last Admin: 12/06/17 16:33 Dose: Not Given Insulin Detemir (Levemir Vial) 15 units SQ BID@0700,2200 [facility] Last Admin: 12/06/17 07:03 Dose: Not Given Midazolam HCl (Versed -) 2 mg IVPUSH Q2H PRN PRN Reason: TACHYCARDIA Last Admin: 12/03/17 15:15 Dose: 2 mg Pantoprazole Sodium (Protonix Iv) 40 mg IVPUSH BID [facility] Last Admin: 12/06/17 10:28 Dose: 40 mg Polyethylene Glycol (Miralax (For Daily Use) -) 17 gm NGT BID [facility] Last Admin: 12/06/17 11:08 Dose: Not Given Senna (Senna Oral Solution -) 8.8 mg PO HS [facility] Last Admin: 12/05/17 23:02 Dose: Not Given Sevelamer Carbonate (Renvela Powder Packet -) 0.8 gm NGT BID [facility] Last Admin: 12/06/17 11:09 Dose: 0.8 gm Tamsulosin HCl (Flomax -) 0.4 mg PO DAILY@0830 [facility] Last Admin: 12/06/17 10:28 Dose: 0.4 mg ASSESSMENT/PLAN: A 67 y.o. M w/ PMHx. ILD, chronic hypoxic respiratory failure (on 2L NC at home) , recurrent PNA, HTN, DM2, BPH, presents to the ICU with acute hypoxic respiratory failure 2/2 PNA and hypervolemia. #Pulmonology -Acute hypoxic respiratory failure 2/2 PNA and hypervolemia D/C Lasix 40mg BID D/C-ed Zosyn Started Vancomycin for MRSA coverage One-time dose of Fluconazole for empiric fungal coverage One-time Levaquin and Merrem dose for empiric Psuedomonas coverage F/u Sputum Cx. and Blood Cx. Pt. currently intubated on Propofol and Fentanyl. D/C-ed Versed Consider trying a sedation vacation to assess mental status in AM Weaned off dopamine D/C-ed Solu-medrol c/w Duonebs c/w ventolin [facility] Palliative Care Consult appreciated. -Subcutaneous Emphysema w/ associated pneumo-mediastinum likely 2/2 ruptured bleb Decreased PEEP to 0 Dr. White consulted, says there is nothing that can be done at this point will continue to monitor #Nephrology -BURKE on CKD Please Dose all meds for CrCl of 20 Extreme caution with Nephrotoxic medications Cr. now 2.2 increased from 1.8 BUN over 150 Nephrology consult (Dr. Sparrow) appreciated- Dialysis not indicated at this time as Pt. is not in metabolic acidosis, hyperkalemic or fluid overloaded. We are unable to assess for uremic encephalopathy at this time as Pt. is intubated. Pt. BP is tenous necessitating pressors and therefore HD will likely be harmful. Pt. is very sensitive to being fluid overloaded because of his lung disease and therefore we cannot bolus Pt. prior to HD. LDH: 264 UA -, though growing moderate yeast FeNA: 0.4% indicating pre-renal disease FUrea: 21.6% indicating pre-renal disease (I used the BUN of 150, however the higher the BUN the more likely it is pre-renal disease) Haptoglobin: 286 Renal US wnl, small bilateral cysts, no hydronephrosis #Gastroenterology -Lower GI Bleed FOBT+ start Protonix 40mg BID -Constipation-stable Increase Miralax to BID Started Senna D/C Reglan d/t nephrotoxicity and in light of Pt.s BURKE -Diverticulosis -stable monitor for bleeding and worsening abdominal pain monitor stool for constipation #Infectious Disease -Pyrexia w/ associated Leukocytosis to 33k RBC morphology shows few platelets Started Vancomycin for MRSA coverage BCx. positive for yeast--> D/Renato Diflucan 200mg (renally dosed)---> started Capsofungin because of Diflucan interaction with Amiodarone causing QT- prolongation. One-time dose of Fluconazole for empiric fungal coverage One-time Levaquin and Merrem dose for empiric Psuedomonas coverage F/u Sputum Cx. and Blood Cx. -Sepsis 2/2 PNA-resolved? D/C Zosyn Legionella Ag - #Cardiology -Hypotension c/w Levophed and Vasopressin to maintain MAP over 65, can try to titrate down as tolerated Started Hydrocortisone 50mg Q6H and Fludrocortisone 0.05mg Daily -Afib w/ RVR c/w Amiodarone drip D/c Digoxin -HTN Hold Losartan 100mg, Norvasc, 10mg and Metoprolol 100mg as Pt. is hypotensive A-line placed for better BP monitoring #Urology -BPH c/w Flomax #Endocrinology -DM2 ISS BGM #F/E/N -D/C IVF, restrict fluids, all medications converted to double concentrated to minimize fluid intake. -monitor electrolytes and replete as needed -D/c-ed Glucerna, started Nepro tube feeds with 60ml free water flushes ( increased from 30ml 12/02/17-per Dr. Sparrow) -NPO #PPx. -DVT D/C Heparin drip d/t GI bleed Monitor PTT, last PTT: 31.9
[2017-12-06] MEDS: PROPOFOL 1,000,000 MCG/100 ML VIAL IVPB SCH ×3 (19:04→20:54)
[2017-12-06] MEDS ORDERED: VASOPRESSIN 20 UNITS/ML VIAL IV ONE (20:28)
[2017-12-06] MEDS: VANCOMYCIN 1 GRAM (PRE-DOCKED) 1,000 MG/250 ML BAG IVPB SCH (20:55)
[2017-12-06] MEDS: CHLORHEXIDINE GLUCONATE 4% CLEANSER FOR DECOLONIZATION TP SCH (21:19)
[2017-12-06] MEDS: SENNOSIDES 8.8 MG/5 ML BULK BOTTLE PO SCH (21:21)
[2017-12-06] MEDS: CASPOFUNGIN ACETATE 50 MG in SODIUM CHLORIDE 250 ML IVPB SCH (22:46)
[2017-12-07] MEDS: HYDROCORTISONE SOD SUCCINATE 100 MG/2 ML VIAL IVPUSH SCH ×4 (02:35→21:12)
[2017-12-07 05:55] LABS: BASO % 0.6 % (0-2.0); HEMATOCRIT 28.2 % (35.4-49); HEMOGLOBIN 8.7 GM/dL (11.7-16.9); LYMPH % 1.2 % (8-40); MCH 29.1 pg (25.7-33.7); MEAN CELL VOLUME 93.9 fl (80-96); MEAN PLT VOLUME 12.3 fl (7.5-11.1); MONO % 1.4 % (3.8-10.2); NEUT % 96.8 % (42.8-82.8); PLATELET COUNT 75 K/MM3 (134-434); RDW 15.8 % (11.9-15.9); WHITE BLOOD COUNT 17.5 K/mm3 (4.0-10.0)
[2017-12-07 06:03] LABS: ARTERIAL BLD GAS O2 SATURATION 96.3 % (90-98.9); ARTERIAL BLOOD GAS BASE EXCESS 9.2 meq/l (-2-2); ARTERIAL BLOOD GAS PO2 90.5 mmHg (80-100)
[2017-12-07 06:04] LABS: ALLENS TEST POSITIVE; ARTERIAL BLOOD GAS PCO2 58.6 mmHg (35-45)
[2017-12-07] MEDS: INSULIN (LEVEMIR) 100 UNITS/ML UNITS SQ SCH ×2 (06:21→21:20)
[2017-12-07] MEDS: INSULIN SLIDING SCALE (NOVOLOG) 1 VIAL SQ SCH ×4 (06:22→21:21)
[2017-12-07 07:40] LABS: ANION GAP 9 MMOL/L (8-16); CHLORIDE 110 mmol/L (98-107); CO2 34 mmol/L (21-32); CREATININE 2.3 mg/dL (0.55-1.3); GLUCOSE,RANDOM 151 mg/dL (74-106); MAGNESIUM 2.8 mg/dL (1.8-2.4); PHOSPHOROUS 6.4 mg/dL (2.5-4.9); POTASSIUM 3.1 mmol/L (3.5-5.1); SODIUM 153 mmol/L (136-145)
[2017-12-07] MEDS ORDERED: POTASSIUM CHLORIDE ORAL LIQUID 20 MEQ/15 ML NGT ONE (07:43)
[2017-12-07 07:49] LABS: BLOOD UREA NITROGEN 113 mg/dL (7-18)
[2017-12-07] MEDS: ALBUTEROL SO4 2.5/IPRATROPIUM 0.5 INH SOL 3 ML VIAL.NEB. NEB SCH ×4 (08:40→21:30)
[2017-12-07] MEDS ORDERED: PT OWN MED DRAWER 7, Y5N ONE ×3 (09:19→21:02)
[2017-12-07] MEDS: AMIODARONE HCL 200 MG TABLET (FP) NGT SCH ×2 (09:33→23:00)
[2017-12-07] MEDS: TAMSULOSIN HCL 0.4 MG CAP PO SCH (09:33)
[2017-12-07] MEDS: PANTOPRAZOLE SODIUM 40 MG VIAL IVPUSH SCH ×2 (09:33→21:12)
[2017-12-07] MEDS: POLYETHYLENE GLYCOL 3350 119 GM BTL NGT SCH ×2 (09:34→21:13)
[2017-12-07] MEDS: MEROPENEM 1 GM in DEXTROSE 5%-WATER - 50 ML IVPB SCH ×2 (09:34→21:13)
[2017-12-07] MEDS: FLUDROCORTISONE ACETATE 0.1 MG TABLET (FP) PO SCH (09:34)
[2017-12-07] MEDS: SEVELAMER CARBONATE 0.8 GM POWDER PACKET NGT SCH ×2 (09:35→23:00)
[2017-12-07] MEDS ORDERED: dilTIAZem HCL 50 MG/10 ML - 10 ML VIAL IVPUSH ONE (10:05)
[2017-12-07] MEDS ORDERED: dilTIAZem HCL 125 MG/25 ML - 25 ML VIAL ONE (10:06)
[2017-12-07] MEDS ORDERED: dilTIAZem HCL 50 MG/10 ML - 10 ML VIAL IVPUSH PRN ×2 (10:12→19:18)
[2017-12-07] MEDS ORDERED: AMIODARONE HCL 150 MG/3 ML VIAL IVPUSH ONE (11:17)
--- NOTE | 2017-12-07 11:19 | PN ---
Progress Note, Physician History of Present Illness: Remains sedated on ventilator, maintained on Levophed and vasopressin gtt, back in rapid PAF despite oral amio. Developed melena while on heparin gtt since d/ dany, CXR worse. - Current Medication List Current Medications: Active Medications Acetaminophen (Tylenol Oral Solution -) 650 mg NGT Q6H PRN PRN Reason: PAIN LEVEL 1-5 OR FEVER Last Admin: 12/05/17 20:30 Dose: 650 mg Albuterol Sulfate (Ventolin 0.083% Nebulizer Soln -) 1 amp NEB Q8H PRN PRN Reason: SHORT OF BREATH/WHEEZING Last Admin: 12/04/17 00:40 Dose: 1 amp Albuterol/Ipratropium (Duoneb -) 1 amp NEB RQID [facility] Last Admin: 12/07/17 08:40 Dose: 1 amp Amiodarone HCl (Cordarone -) 200 mg NGT BID [facility] Last Admin: 12/07/17 09:33 Dose: 200 mg Chlorhexidine Gluconate (Hibiclens For Decolonization -) 1 applic TP HS [facility] Last Admin: 12/06/17 21:19 Dose: 1 applic Fludrocortisone Acetate (Florinef -) 0.05 mg PO DAILY [facility] Last Admin: 12/07/17 09:34 Dose: 0.05 mg Hydrocortisone Sodium Succinate (Solu-Cortef -) 50 mg IVPUSH Q6H-IV [facility] Last Admin: 12/07/17 09:33 Dose: 50 mg Propofol (Diprivan -) 1,000,000 mcg in 100 mls @ 4.79 mls/hr IVPB TITR [facility]; Protocol Last Titration: 12/07/17 09:49 Dose: 40 mcg/kg/min, 19.16 mls/hr Meropenem 1 gm/ Dextrose 50 mls @ 200 mls/hr IVPB BID [facility] Last Admin: 12/07/17 09:34 Dose: 200 mls/hr Norepinephrine Bitartrate 8, (000 mcg/ Dextrose) 250 mls @ 3.75 mls/hr IVPB TITR [facility]; Protocol Last Admin: 12/06/17 16:27 Dose: Not Given Fentanyl 500 mcg/ Dextrose 50 mls @ 10 mls/hr IVPB TITR [facility]; Protocol Last Admin: 12/06/17 20:36 Dose: Not Given Vasopressin 50 units/ Sodium (Chloride) 50 mls @ 2 mls/hr IVPB ASDIR [facility]; Protocol Last Admin: 12/06/17 19:06 Dose: 4 units/hr, 4 mls/hr Caspofungin 50 mg/ Sodium (Chloride) 250 mls @ 250 mls/hr IVPB Q24H [facility] Last Admin: 12/06/17 22:46 Dose: 250 mls/hr Vancomycin HCl (Vancomycin (Pre-Docked)) 1,000 mg in 250 mls @ 166.667 mls/hr IVPB Q24H [facility]; Protocol Last Admin: 12/06/17 20:55 Dose: 166.667 mls/hr Insulin Aspart (Novolog Vial Sliding Scale -) 1 vial SQ ACHS [facility]; Protocol Last Admin: 12/07/17 06:22 Dose: 4 units Insulin Detemir (Levemir Vial) 15 units SQ BID@0700,2200 [facility] Last Admin: 12/07/17 06:21 Dose: 15 units Midazolam HCl (Versed -) 2 mg IVPUSH Q2H PRN PRN Reason: TACHYCARDIA Last Admin: 12/03/17 15:15 Dose: 2 mg Pantoprazole Sodium (Protonix Iv) 40 mg IVPUSH BID [facility] Last Admin: 12/07/17 09:33 Dose: 40 mg Polyethylene Glycol (Miralax (For Daily Use) -) 17 gm NGT BID [facility] Last Admin: 12/07/17 09:34 Dose: Not Given Senna (Senna Oral Solution -) 8.8 mg PO HS [facility] Last Admin: 12/06/17 21:21 Dose: Not Given Sevelamer Carbonate (Renvela Powder Packet -) 0.8 gm NGT BID [facility] Last Admin: 12/07/17 09:35 Dose: 0.8 gm Tamsulosin HCl (Flomax -) 0.4 mg PO DAILY@0830 [facility] Last Admin: 12/07/17 09:33 Dose: 0.4 mg - Objective Vital Signs: Vital Signs Temperature 98.5 F 12/07/17 10:10 Pulse Rate 146 H 12/07/17 10:10 Respiratory Rate 26 H 12/07/17 10:10 Blood Pressure 97/54 L 12/07/17 10:10 O2 Sat by Pulse Oximetry (%) 96 12/07/17 10:00 Cardiovascular: Yes: Tachycardia, Pulse Irregular Respiratory: Yes: Intubated, Mechanically Ventilated, Rhonchi Gastrointestinal: Yes: Normal Bowel Sounds, Soft Edema: No Labs: CBC, BMP 12/07/17 05:30 12/07/17 05:30 INR, PTT INR 1.00 (0.83-1.09) 12/05/17 03:30 Fibrinogen 488.0 mg/dL (238-498) 12/05/17 03:30 - ....Imaging EKG: Report Reviewed (Tele: Afib) Problem List - Problems (1) Old myocardial infarction Code(s): I25.2 - OLD MYOCARDIAL INFARCTION (2) Acute and chronic respiratory failure with hypoxia Code(s): J96.21 - ACUTE AND CHRONIC RESPIRATORY FAILURE WITH HYPOXIA (3) CKD (chronic kidney disease) Code(s): N18.9 - CHRONIC KIDNEY DISEASE, UNSPECIFIED Qualifiers: Chronic kidney disease stage: stage 2 (mild) Qualified Code(s): N18.2 - Chronic kidney disease, stage 2 (mild) (4) Pneumonia Code(s): J18.9 - PNEUMONIA, UNSPECIFIED ORGANISM Qualifiers: Lung location: unspecified part of lung (5) SLE (systemic lupus erythematosus) Code(s): M32.9 - SYSTEMIC LUPUS ERYTHEMATOSUS, UNSPECIFIED Qualifiers: Systemic lupus erythematosus organ involvement: unspecified (6) Hypernatremia Code(s): E87.0 - HYPEROSMOLALITY AND HYPERNATREMIA (7) Paroxysmal atrial fibrillation with rapid ventricular response Code(s): I48.0 - PAROXYSMAL ATRIAL FIBRILLATION (8) Melena Code(s): K92.1 - MELENA (9) Septic shock Code(s): A41.9 - SEPSIS, UNSPECIFIED ORGANISM; R65.21 - SEVERE SEPSIS WITH SEPTIC SHOCK (10) ILD (interstitial lung disease) Code(s): J84.9 - INTERSTITIAL PULMONARY DISEASE, UNSPECIFIED Assessment/Plan 09/09/2017 Echo: Normal LV size and fxn, normal RV size and fxn, mild AR, MR, TR RVSP 30-40 mmHg 11/02/2017 Myoview: Moderate inferoapical infarct with vandana-infarct ischemia , LVEF 57% 1. Acute on Chronic Hypoxic and hypercapneic Respiratory Failure due to end stage ILD 2. Pneumonia, fungemia 3. Septic shock 4. Interstitial Lung Disease, Pneumomediastinum, Subcutaneous Emphysema 5. Acute on chronic diastolic heart failure euvolemic 6. Paroxysmal atrial fibrillation with RVR [id number]-> SR off heparin gtt due to melena 7. Acute on CKD due to hypotension and renal hypoperfusion 8. CAD post AR with abnormal MPI 9. HTN 10. DM 11. BPH 12. Hypernatremia, hypokalemia 13. Melena in context of anticoagulation->stress ulcers PLAN: 1. Amiodarone 200 bid for rate-control, but ideally avoid amiodarone long-term given ILD 2. Heparin gtt d/dany due to melena 3. Free water flushes to correct free water deficit, K repletion, diuresis as needed with monitor renal recovery 2. Wean Levophed and vasopressin gtt to maintain MAP>65 mmHg 3. Resume ARB and beta charles as hemodynamics tolerate once off of pressors and renal fxn stabilizes 4. Empiric abx and antifungal course, bronchodilators and IV steroids with GI protection as per pulmonary service 5. Ventilator wean as tolerated, enteral feeds held per GI, DVT/GI prophylaxis, may need trach
--- NOTE | 2017-12-07 11:27 | PN ---
Teaching Attending Note Name of Resident: James Vasquez ATTENDING PHYSICIAN STATEMENT I saw and evaluated the patient. I reviewed the resident's note and discussed the case with the resident. I agree with the resident's findings and plan as documented. SUBJECTIVE: Pt seen and examined in the ICU. Remains intubated, sedated. Increasing oxygen requirements. Subcutaneous emphysema improving. Rapid atrial fibrillation this AM. On levophed and vasopressin gtts. OBJECTIVE: Vital Signs Period Temp Pulse Resp BP Sys/Paul Pulse Ox Last 24 Hr 98.2 F-98.9 F 80-146 20-31 84-165/51-70 95-99 Intake & Output 12/04/17 12/05/17 12/06/17 12/07/17 23:59 23:59 23:59 23:59 Intake Total 3073 3581.4 1644.5 1732.6 Output Total 1800 2200 2500 900 Balance 1273 1381.4 -855.5 832.6 Weight 75.568 kg 74.707 kg 76.7 kg 77.156 kg Gen: intubated, sedated, tachypneic Heart: tachycardic Lung: bilateral rhonchi Abd: soft, nontender Ext: UE edema CBC, BMP 12/07/17 05:30 12/07/17 05:30 Active Medications Acetaminophen (Tylenol Oral Solution -) 650 mg NGT Q6H PRN PRN Reason: PAIN LEVEL 1-5 OR FEVER Last Admin: 12/05/17 20:30 Dose: 650 mg Albuterol Sulfate (Ventolin 0.083% Nebulizer Soln -) 1 amp NEB Q8H PRN PRN Reason: SHORT OF BREATH/WHEEZING Last Admin: 12/04/17 00:40 Dose: 1 amp Albuterol/Ipratropium (Duoneb -) 1 amp NEB RQID [facility] Last Admin: 12/07/17 08:40 Dose: 1 amp Amiodarone HCl (Cordarone -) 200 mg NGT BID [facility] Last Admin: 12/07/17 09:33 Dose: 200 mg Amiodarone HCl (Cordarone Injection -) 150 mg IVPUSH ONCE ONE Stop: 12/07/17 11:18 Chlorhexidine Gluconate (Hibiclens For Decolonization -) 1 applic TP HS [facility] Last Admin: 12/06/17 21:19 Dose: 1 applic Fludrocortisone Acetate (Florinef -) 0.05 mg PO DAILY [facility] Last Admin: 12/07/17 09:34 Dose: 0.05 mg Hydrocortisone Sodium Succinate (Solu-Cortef -) 50 mg IVPUSH Q6H-IV [facility] Last Admin: 12/07/17 09:33 Dose: 50 mg Propofol (Diprivan -) 1,000,000 mcg in 100 mls @ 4.79 mls/hr IVPB TITR [facility]; Protocol Last Titration: 12/07/17 09:49 Dose: 40 mcg/kg/min, 19.16 mls/hr Meropenem 1 gm/ Dextrose 50 mls @ 200 mls/hr IVPB BID [facility] Last Admin: 12/07/17 09:34 Dose: 200 mls/hr Norepinephrine Bitartrate 8, (000 mcg/ Dextrose) 250 mls @ 3.75 mls/hr IVPB TITR [facility]; Protocol Last Admin: 12/06/17 16:27 Dose: Not Given Fentanyl 500 mcg/ Dextrose 50 mls @ 10 mls/hr IVPB TITR [facility]; Protocol Last Admin: 12/06/17 20:36 Dose: Not Given Vasopressin 50 units/ Sodium (Chloride) 50 mls @ 2 mls/hr IVPB ASDIR [facility]; Protocol Last Admin: 12/06/17 19:06 Dose: 4 units/hr, 4 mls/hr Caspofungin 50 mg/ Sodium (Chloride) 250 mls @ 250 mls/hr IVPB Q24H [facility] Last Admin: 12/06/17 22:46 Dose: 250 mls/hr Vancomycin HCl (Vancomycin (Pre-Docked)) 1,000 mg in 250 mls @ 166.667 mls/hr IVPB Q24H [facility]; Protocol Last Admin: 12/06/17 20:55 Dose: 166.667 mls/hr Insulin Aspart (Novolog Vial Sliding Scale -) 1 vial SQ ACHS [facility]; Protocol Last Admin: 12/07/17 06:22 Dose: 4 units Insulin Detemir (Levemir Vial) 15 units SQ BID@0700,2200 [facility] Last Admin: 12/07/17 06:21 Dose: 15 units Midazolam HCl (Versed -) 2 mg IVPUSH Q2H PRN PRN Reason: TACHYCARDIA Last Admin: 12/03/17 15:15 Dose: 2 mg Pantoprazole Sodium (Protonix Iv) 40 mg IVPUSH BID [facility] Last Admin: 12/07/17 09:33 Dose: 40 mg Polyethylene Glycol (Miralax (For Daily Use) -) 17 gm NGT BID [facility] Last Admin: 12/07/17 09:34 Dose: Not Given Senna (Senna Oral Solution -) 8.8 mg PO HS [facility] Last Admin: 12/06/17 21:21 Dose: Not Given Sevelamer Carbonate (Renvela Powder Packet -) 0.8 gm NGT BID [facility] Last Admin: 12/07/17 09:35 Dose: 0.8 gm Tamsulosin HCl (Flomax -) 0.4 mg PO DAILY@0830 [facility] Last Admin: 12/07/17 09:33 Dose: 0.4 mg ASSESSMENT AND PLAN: Acute on Chronic Hypoxic and Hypercapneic Respiratory Failure Advanced Interstitial Lung Disease Subcutaneous Emphysema Pneumonia Fungemia Septic Shock Paroxysmal Atrial Fibrillation with RVR Acute on Chronic Diastolic Heart Failure GI Bleed Thrombocytopenia CAD HTN DM - continue antibiotics, antifungals per ID - f/u cultures - IVF to keep CVP 8-12 - titrate pressors to maintain MAP >65 - continue stress dose steroids - rate control with amiodarone - holding anticoagulation due to active GI bleed - monitor CBC - transfuse as needed - taper FiO2 to keep SpO2>90% - low tidal volume ventilation 6cc/kg/IBW or less - allow permissive hypercapnea - keep Pplat <30 - sedate for vent synchrony - enteral feeds - DVT/GI prophylaxis - poor prognosis, continue discussions regarding goals of care - family meeting today critical care time spent in reviewing chart, evaluating patient and formulating plan 35 min
[2017-12-07 11:52] LABS: ANISOCYTOSIS 0; MACROCYTOSIS 0; PLATELET ESTIMATE DECREASED
[2017-12-07] MEDS ORDERED: PROPOFOL 1,000,000 MCG/100 ML VIAL ONE (12:20)
[2017-12-07] MEDS: PROPOFOL 1,000,000 MCG/100 ML VIAL IVPB SCH ×2 (12:43→19:30)
--- NOTE | 2017-12-07 13:01 | PN ---
Progress Note (short form) - Note Progress Note: Renal follow up for BURKE Pt seen and examined in the ICU on vent, on levophed and vaospressin amiodarone started for rapid afib making urine no sob, cp, abd pain, N/V/D Vital Signs Temperature 98.5 F 12/07/17 10:10 Pulse Rate 88 12/07/17 12:00 Respiratory Rate 22 H 12/07/17 12:00 Blood Pressure 95/49 L 12/07/17 12:06 O2 Sat by Pulse Oximetry (%) 96 12/07/17 10:00 Intake & Output 12/04/17 12/05/17 12/06/17 12/07/17 23:59 23:59 23:59 23:59 Intake Total 3073 3581.4 1644.5 1732.6 Output Total 1800 2200 2500 900 Balance 1273 1381.4 -855.5 832.6 Weight 75.568 kg 74.707 kg 76.7 kg 77.156 kg NAD sedated on vent via ET tube RRR Course Bs soft NT/ND no bladder distension No LE edema, clubbing or cyanosis CBC, BMP 12/07/17 05:30 12/07/17 05:30 Current Medications Acetaminophen (Tylenol Oral Solution -) 650 mg NGT Q6H PRN PRN Reason: PAIN LEVEL 1-5 OR FEVER Last Admin: 12/05/17 20:30 Dose: 650 mg Albuterol Sulfate (Ventolin 0.083% Nebulizer Soln -) 1 amp NEB Q8H PRN PRN Reason: SHORT OF BREATH/WHEEZING Last Admin: 12/04/17 00:40 Dose: 1 amp Albuterol/Ipratropium (Duoneb -) 1 amp NEB RQID [facility] Last Admin: 12/07/17 11:47 Dose: 1 amp Amiodarone HCl (Cordarone -) 200 mg NGT BID [facility] Last Admin: 12/07/17 09:33 Dose: 200 mg Chlorhexidine Gluconate (Hibiclens For Decolonization -) 1 applic TP HS [facility] Last Admin: 12/06/17 21:19 Dose: 1 applic Fludrocortisone Acetate (Florinef -) 0.05 mg PO DAILY [facility] Last Admin: 12/07/17 09:34 Dose: 0.05 mg Hydrocortisone Sodium Succinate (Solu-Cortef -) 50 mg IVPUSH Q6H-IV [facility] Last Admin: 12/07/17 09:33 Dose: 50 mg Propofol (Diprivan -) 1,000,000 mcg in 100 mls @ 4.79 mls/hr IVPB TITR [facility]; Protocol Last Admin: 12/07/17 12:43 Dose: 40 mcg/kg/min, 19.16 mls/hr Meropenem 1 gm/ Dextrose 50 mls @ 200 mls/hr IVPB BID [facility] Last Admin: 12/07/17 09:34 Dose: 200 mls/hr Norepinephrine Bitartrate 8, (000 mcg/ Dextrose) 250 mls @ 3.75 mls/hr IVPB TITR [facility]; Protocol Last Titration: 12/07/17 12:06 Dose: 4 mcg/min, 7.5 mls/hr Fentanyl 500 mcg/ Dextrose 50 mls @ 10 mls/hr IVPB TITR [facility]; Protocol Last Admin: 12/06/17 20:36 Dose: Not Given Vasopressin 50 units/ Sodium (Chloride) 50 mls @ 2 mls/hr IVPB ASDIR [facility]; Protocol Last Admin: 12/06/17 19:06 Dose: 4 units/hr, 4 mls/hr Caspofungin 50 mg/ Sodium (Chloride) 250 mls @ 250 mls/hr IVPB Q24H [facility] Last Admin: 12/06/17 22:46 Dose: 250 mls/hr Vancomycin HCl (Vancomycin (Pre-Docked)) 1,000 mg in 250 mls @ 166.667 mls/hr IVPB Q24H [facility]; Protocol Last Admin: 12/06/17 20:55 Dose: 166.667 mls/hr Insulin Aspart (Novolog Vial Sliding Scale -) 1 vial SQ ACHS [facility]; Protocol Last Admin: 12/07/17 12:42 Dose: 8 units Insulin Detemir (Levemir Vial) 15 units SQ BID@0700,2200 [facility] Last Admin: 12/07/17 06:21 Dose: 15 units Midazolam HCl (Versed -) 2 mg IVPUSH Q2H PRN PRN Reason: TACHYCARDIA Last Admin: 12/03/17 15:15 Dose: 2 mg Pantoprazole Sodium (Protonix Iv) 40 mg IVPUSH BID [facility] Last Admin: 12/07/17 09:33 Dose: 40 mg Polyethylene Glycol (Miralax (For Daily Use) -) 17 gm NGT BID [facility] Last Admin: 12/07/17 09:34 Dose: Not Given Senna (Senna Oral Solution -) 8.8 mg PO HS [facility] Last Admin: 12/06/17 21:21 Dose: Not Given Sevelamer Carbonate (Renvela Powder Packet -) 0.8 gm NGT BID [facility] Last Admin: 12/07/17 09:35 Dose: 0.8 gm Tamsulosin HCl (Flomax -) 0.4 mg PO DAILY@0830 [facility] Last Admin: 12/07/17 09:33 Dose: 0.4 mg 67yo man with a PMH of HTN, DM, BPH and SLE. He was brought in to ER with worsening SOB and found to have respiratory failure from PNA/ARDS with BURKE and hypernatremia #BURKE secondary to renal hypoprofusion in setting of sepsis #Hypernatremia secondary to volume depletion/water deficit #Respiratory failure from ARDS/PNA #Sepsis #Hyperkalemia Renal function stable at this time, pt remains non-oliguric no acute indication for [employer] and pt would be intolerant of HD given hypotension at this time will continue medical management with focus on improving renal profusion consider IVF if CVP remains low continue pressers to maintain map > 65 Vent support, hgih Fio2 Abx as per ID Trend Vanco levels if it is to be continued prognosis is guarded Jaswant Sparrow DO
[2017-12-07] MEDS ORDERED: fentaNYL CITRATE 250 MCG/5 ML VIAL ONE (14:30)
[2017-12-07] MEDS ORDERED: VASOPRESSIN 20 UNITS/ML VIAL IV ONE (14:31)
--- NOTE | 2017-12-07 14:37 | PN ---
Progress Note, Physician History of Present Illness: . Remains intubated, sedated on levophed and vasopressin gtts. Overnight developed subcutaneous emphysema in chest and right neck. CT chest without evidence of pneumothorax. thoracic surgeon contacted nothing aggressive to be done - Current Medication List Current Medications: Active Medications Acetaminophen (Tylenol Oral Solution -) 650 mg NGT Q6H PRN PRN Reason: PAIN LEVEL 1-5 OR FEVER Last Admin: 12/05/17 20:30 Dose: 650 mg Albuterol Sulfate (Ventolin 0.083% Nebulizer Soln -) 1 amp NEB Q8H PRN PRN Reason: SHORT OF BREATH/WHEEZING Last Admin: 12/04/17 00:40 Dose: 1 amp Albuterol/Ipratropium (Duoneb -) 1 amp NEB RQID [facility] Last Admin: 12/07/17 11:47 Dose: 1 amp Amiodarone HCl (Cordarone -) 200 mg NGT BID [facility] Last Admin: 12/07/17 09:33 Dose: 200 mg Chlorhexidine Gluconate (Hibiclens For Decolonization -) 1 applic TP HS [facility] Last Admin: 12/06/17 21:19 Dose: 1 applic Fludrocortisone Acetate (Florinef -) 0.05 mg PO DAILY [facility] Last Admin: 12/07/17 09:34 Dose: 0.05 mg Hydrocortisone Sodium Succinate (Solu-Cortef -) 50 mg IVPUSH Q6H-IV [facility] Last Admin: 12/07/17 09:33 Dose: 50 mg Propofol (Diprivan -) 1,000,000 mcg in 100 mls @ 4.79 mls/hr IVPB TITR [facility]; Protocol Last Admin: 12/07/17 12:43 Dose: 40 mcg/kg/min, 19.16 mls/hr Meropenem 1 gm/ Dextrose 50 mls @ 200 mls/hr IVPB BID [facility] Last Admin: 12/07/17 09:34 Dose: 200 mls/hr Norepinephrine Bitartrate 8, (000 mcg/ Dextrose) 250 mls @ 3.75 mls/hr IVPB TITR [facility]; Protocol Last Titration: 12/07/17 12:06 Dose: 4 mcg/min, 7.5 mls/hr Fentanyl 500 mcg/ Dextrose 50 mls @ 10 mls/hr IVPB TITR [facility]; Protocol Last Admin: 12/06/17 20:36 Dose: Not Given Vasopressin 50 units/ Sodium (Chloride) 50 mls @ 2 mls/hr IVPB ASDIR [facility]; Protocol Last Admin: 12/06/17 19:06 Dose: 4 units/hr, 4 mls/hr Caspofungin 50 mg/ Sodium (Chloride) 250 mls @ 250 mls/hr IVPB Q24H [facility] Last Admin: 12/06/17 22:46 Dose: 250 mls/hr Vancomycin HCl (Vancomycin (Pre-Docked)) 1,000 mg in 250 mls @ 166.667 mls/hr IVPB Q24H [facility]; Protocol Last Admin: 12/06/17 20:55 Dose: 166.667 mls/hr Insulin Aspart (Novolog Vial Sliding Scale -) 1 vial SQ ACHS [facility]; Protocol Last Admin: 12/07/17 12:42 Dose: 8 units Insulin Detemir (Levemir Vial) 15 units SQ BID@0700,2200 [facility] Last Admin: 12/07/17 06:21 Dose: 15 units Midazolam HCl (Versed -) 2 mg IVPUSH Q2H PRN PRN Reason: TACHYCARDIA Last Admin: 12/03/17 15:15 Dose: 2 mg Pantoprazole Sodium (Protonix Iv) 40 mg IVPUSH BID [facility] Last Admin: 12/07/17 09:33 Dose: 40 mg Polyethylene Glycol (Miralax (For Daily Use) -) 17 gm NGT BID [facility] Last Admin: 12/07/17 09:34 Dose: Not Given Senna (Senna Oral Solution -) 8.8 mg PO HS [facility] Last Admin: 12/06/17 21:21 Dose: Not Given Sevelamer Carbonate (Renvela Powder Packet -) 0.8 gm NGT BID [facility] Last Admin: 12/07/17 09:35 Dose: 0.8 gm Tamsulosin HCl (Flomax -) 0.4 mg PO DAILY@0830 [facility] Last Admin: 12/07/17 09:33 Dose: 0.4 mg - Objective Vital Signs: Vital Signs Temperature 98.5 F 12/07/17 10:10 Pulse Rate 88 12/07/17 12:00 Respiratory Rate 28 H 12/07/17 13:41 Blood Pressure 95/49 L 12/07/17 12:06 O2 Sat by Pulse Oximetry (%) 96 12/07/17 10:00 Constitutional: Yes: Other Neck: Yes: Other (sub cut emphysema) Cardiovascular: Yes: Regular Rate and Rhythm, Tachycardia Respiratory: Yes: Intubated, Mechanically Ventilated Gastrointestinal: Yes: Soft, Hypoactive Bowel Sounds Labs: CBC, BMP 12/07/17 05:30 12/07/17 05:30 INR, PTT INR 1.00 (0.83-1.09) 12/05/17 03:30 Fibrinogen 488.0 mg/dL (238-498) 12/05/17 03:30 - ....Imaging Chest X-ray: Report Reviewed, Image Reviewed X-ray: Report Reviewed, Image Reviewed Assessment/Plan Respiratory Failure Pneumonia Sepsis Interstitial Lung Disease HTN DM BPH fungameia beto sub cut emhysema plan continue abx monitor for bleeding resp support gi prophylaxis rest as per icu prognosis poor cc 40 min
[2017-12-07] MEDS: WATER IVPB SCH (14:42)
[2017-12-07] MEDS: FENTANYL IVPB SCH (14:42)
[2017-12-07] MEDS: DEXTROSE 5% IVPB SCH (14:42)
--- NOTE | 2017-12-07 15:42 | PN ---
Progress Note, Physician History of Present Illness: events noted patient is dnr now intubated pressor support - Current Medication List Current Medications: Active Medications Acetaminophen (Tylenol Oral Solution -) 650 mg NGT Q6H PRN PRN Reason: PAIN LEVEL 1-5 OR FEVER Last Admin: 12/05/17 20:30 Dose: 650 mg Albuterol Sulfate (Ventolin 0.083% Nebulizer Soln -) 1 amp NEB Q8H PRN PRN Reason: SHORT OF BREATH/WHEEZING Last Admin: 12/04/17 00:40 Dose: 1 amp Albuterol/Ipratropium (Duoneb -) 1 amp NEB RQID [facility] Last Admin: 12/07/17 11:47 Dose: 1 amp Amiodarone HCl (Cordarone -) 200 mg NGT BID [facility] Last Admin: 12/07/17 09:33 Dose: 200 mg Chlorhexidine Gluconate (Hibiclens For Decolonization -) 1 applic TP HS [facility] Last Admin: 12/06/17 21:19 Dose: 1 applic Fludrocortisone Acetate (Florinef -) 0.05 mg PO DAILY [facility] Last Admin: 12/07/17 09:34 Dose: 0.05 mg Hydrocortisone Sodium Succinate (Solu-Cortef -) 50 mg IVPUSH Q6H-IV [facility] Last Admin: 12/07/17 09:33 Dose: 50 mg Propofol (Diprivan -) 1,000,000 mcg in 100 mls @ 4.79 mls/hr IVPB TITR [facility]; Protocol Last Admin: 12/07/17 12:43 Dose: 40 mcg/kg/min, 19.16 mls/hr Meropenem 1 gm/ Dextrose 50 mls @ 200 mls/hr IVPB BID [facility] Last Admin: 12/07/17 09:34 Dose: 200 mls/hr Norepinephrine Bitartrate 8, (000 mcg/ Dextrose) 250 mls @ 3.75 mls/hr IVPB TITR [facility]; Protocol Last Titration: 12/07/17 12:06 Dose: 4 mcg/min, 7.5 mls/hr Fentanyl 500 mcg/ Dextrose 50 mls @ 10 mls/hr IVPB TITR [facility]; Protocol Last Admin: 12/07/17 14:42 Dose: 80 mcg/hr, 8 mls/hr Vasopressin 50 units/ Sodium (Chloride) 50 mls @ 2 mls/hr IVPB ASDIR [facility]; Protocol Last Admin: 12/06/17 19:06 Dose: 4 units/hr, 4 mls/hr Caspofungin 50 mg/ Sodium (Chloride) 250 mls @ 250 mls/hr IVPB Q24H [facility] Last Admin: 12/06/17 22:46 Dose: 250 mls/hr Vancomycin HCl (Vancomycin (Pre-Docked)) 1,000 mg in 250 mls @ 166.667 mls/hr IVPB Q24H [facility]; Protocol Last Admin: 12/06/17 20:55 Dose: 166.667 mls/hr Insulin Aspart (Novolog Vial Sliding Scale -) 1 vial SQ ACHS [facility]; Protocol Last Admin: 12/07/17 12:42 Dose: 8 units Insulin Detemir (Levemir Vial) 15 units SQ BID@0700,2200 [facility] Last Admin: 12/07/17 06:21 Dose: 15 units Midazolam HCl (Versed -) 2 mg IVPUSH Q2H PRN PRN Reason: TACHYCARDIA Last Admin: 12/03/17 15:15 Dose: 2 mg Pantoprazole Sodium (Protonix Iv) 40 mg IVPUSH BID [facility] Last Admin: 12/07/17 09:33 Dose: 40 mg Polyethylene Glycol (Miralax (For Daily Use) -) 17 gm NGT BID [facility] Last Admin: 12/07/17 09:34 Dose: Not Given Senna (Senna Oral Solution -) 8.8 mg PO HS [facility] Last Admin: 12/06/17 21:21 Dose: Not Given Sevelamer Carbonate (Renvela Powder Packet -) 0.8 gm NGT BID [facility] Last Admin: 12/07/17 09:35 Dose: 0.8 gm Tamsulosin HCl (Flomax -) 0.4 mg PO DAILY@0830 [facility] Last Admin: 12/07/17 09:33 Dose: 0.4 mg - Objective Vital Signs: Vital Signs Temperature 98.9 F 12/07/17 14:00 Pulse Rate 95 H 12/07/17 14:00 Respiratory Rate 24 H 12/07/17 14:00 Blood Pressure 110/57 L 12/07/17 14:00 O2 Sat by Pulse Oximetry (%) 96 12/07/17 10:00 Constitutional: Yes: Calm HENT: Yes: Atraumatic Neck: Yes: Supple Cardiovascular: Yes: Regular Rate and Rhythm Respiratory: Yes: Rhonchi Gastrointestinal: Yes: Normal Bowel Sounds Extremities: Yes: WNL Edema: Yes Edema: LLE: 1+, RLE: 1+ Peripheral Pulses WNL: Yes Neurological: Yes: Other (sedated, intubated) Labs: CBC, BMP 12/07/17 05:30 12/07/17 05:30 INR, PTT INR 1.00 (0.83-1.09) 12/05/17 03:30 Fibrinogen 488.0 mg/dL (238-498) 12/05/17 03:30 Problem List - Problems (1) Acute respiratory failure with hypoxia Assessment/Plan: intubated sedated on iv steroids iv abx pulmonary on board Code(s): J96.01 - ACUTE RESPIRATORY FAILURE WITH HYPOXIA (2) Pneumonia Assessment/Plan: on iv abx duo nebs id on board Code(s): J18.9 - PNEUMONIA, UNSPECIFIED ORGANISM Qualifiers: Lung location: unspecified part of lung (3) SLE (systemic lupus erythematosus) Code(s): M32.9 - SYSTEMIC LUPUS ERYTHEMATOSUS, UNSPECIFIED Qualifiers: Systemic lupus erythematosus organ involvement: unspecified (4) Sepsis Assessment/Plan: on iv abx ivf if needed bcxs and u cxs noted Code(s): A41.9 - SEPSIS, UNSPECIFIED ORGANISM Qualifiers: Sepsis type: sepsis due to unspecified organism Qualified Code(s): A41.9 - Sepsis, unspecified organism (5) BURKE (acute kidney injury) Assessment/Plan: CR getting worse Code(s): N17.9 - ACUTE KIDNEY FAILURE, UNSPECIFIED (6) Acute and chronic respiratory failure with hypoxia Code(s): J96.21 - ACUTE AND CHRONIC RESPIRATORY FAILURE WITH HYPOXIA (7) CKD (chronic kidney disease) Assessment/Plan: monitor cr Code(s): N18.9 - CHRONIC KIDNEY DISEASE, UNSPECIFIED Qualifiers: Chronic kidney disease stage: stage 2 (mild) Qualified Code(s): N18.2 - Chronic kidney disease, stage 2 (mild) (8) DIC (disseminated intravascular coagulation) Assessment/Plan: platelets decreasing monitor Code(s): D65 - DISSEMINATED INTRAVASCULAR COAGULATION (9) GI bleed Assessment/Plan: had rectal bleed h/h went down today Code(s): K92.2 - GASTROINTESTINAL HEMORRHAGE, UNSPECIFIED (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) Code(s): D75.82 - HEPARIN INDUCED THROMBOCYTOPENIA (HIT) (11) Melena Code(s): K92.1 - MELENA
[2017-12-07] MEDS: SODIUM CHLORIDE IVPB SCH (15:58)
[2017-12-07] MEDS: VASOPRESSIN IVPB SCH (15:58)
--- NOTE | 2017-12-07 17:33 | PN ---
GI Progress Note Subjective: Had bloody BM's today Made DNR Continued on 3 pressors - Objective Vital Signs: Vital Signs Temperature 98.9 F 12/07/17 14:00 Pulse Rate 106 H 12/07/17 16:00 Respiratory Rate 30 H 12/07/17 16:34 Blood Pressure 124/61 12/07/17 16:00 O2 Sat by Pulse Oximetry (%) 96 12/07/17 10:00 Constitutional: Calm Eyes: Yes: Other (Bilious fluid in OGT). No: Sclera Icterus Gastrointestinal Inspection: No: Distention ...Auscultate: Yes: Normoactive Bowel Sounds ...Palpate: No: Tenderness (No grimacing upon palpation) ...Percussion: No: Tympanitic Edema: Yes Labs: CBC, BMP 12/07/17 05:30 12/07/17 05:30 INR, PTT INR 1.00 (0.83-1.09) 12/05/17 03:30 Fibrinogen 488.0 mg/dL (238-498) 12/05/17 03:30 Hepatic Panel Total Bilirubin 0.6 mg/dL (0.2-1) 12/05/17 05:15 Direct Bilirubin 0.2 mg/dL (0.0-0.2) 12/01/17 05:30 AST 42 U/L (15-37) H 12/05/17 05:15 ALT 52 U/L (13-61) 12/05/17 05:15 Alkaline Phosphatase 51 U/L (45-117) 12/05/17 05:15 Albumin 1.7 g/dl (3.4-5.0) L 12/05/17 05:15 Problem List - Problems (1) GI bleed Assessment/Plan: Continuing supportive measures for now. Transfuse as needed No endoscopic interventions planned given tenuous status Code(s): K92.2 - GASTROINTESTINAL HEMORRHAGE, UNSPECIFIED
[2017-12-07] MEDS: NOREPINEPHRINE BITARTRATE 8,000 MCG in DEXTROSE 5%-WATER - 242 ML IVPB SCH (19:30)
--- NOTE | 2017-12-07 19:41 | PN ---
Physical Exam: SUBJECTIVE: Patient seen and examined. No acute events overnight. This afternoon , Pt. had another bloody BM. Pt.s status discussed with family. Pt. made DNR. OBJECTIVE: Vital Signs Period Temp Pulse Resp BP Sys/Paul Pulse Ox Last 24 Hr 98.2 F-98.9 F 88-146 20-34 80-130/48-70 95-96 GENERAL: Sedated, non-arousable to tactile stimuli HEAD: Normal with no signs of gross trauma. EYES: PERRL, [place] vs. edema ENT: Ears normal, nares patent, dry mucous membranes. NECK: Supraclavicular subcutaneous emphysema LUNGS: Mechanical ventilation, coarse breath sounds, velcro-like sound HEART: Irregular rate and rhythm, S1, S2 without murmur ABDOMEN: Soft, nontender, nondistended, normoactive bowel sounds EXTREMITIES: 2+ dorsal pedal pulses, 1+ right radial pulse, warm, well-perfused , no edema, no calf tenderness. SKIN: Warm, dry, Laboratory Results - last 24 hr 12/04/17 12/06/17 12/07/17 20:04 21:16 05:21 WBC RBC Hgb Hct MCV MCH MCHC RDW Plt Count MPV Absolute Neuts (auto) Neutrophils % Neutrophils % (Manual) Band Neutrophils % Lymphocytes % Lymphocytes % (Manual) Monocytes % Monocytes % (Manual) Eosinophils % Eosinophils % (Manual) Basophils % Basophils % (Manual) Myelocytes % (Man) Promyelocytes % (Man) Blast Cells % (Manual) Nucleated RBC % Metamyelocytes Hypochromia Platelet Estimate Polychromasia Poikilocytosis Anisocytosis Microcytosis Macrocytosis PTT (Actin FS) Puncture Site ABG pH ABG pCO2 at Pt Temp ABG pO2 at Pt Temp ABG HCO3 ABG O2 Sat (Measured) ABG O2 Content ABG Base Excess Bassem Test O2 Delivery Device Oxygen Flow Rate Vent Mode Vent Rate Mechanical Rate PEEP Pressure Support Vent Sodium Potassium Chloride Carbon Dioxide Anion Gap BUN Creatinine Creat Clearance w eGFR POC Glucometer 89.91646 163.95485 Random Glucose Calcium Phosphorus Magnesium Random Vancomycin Heparin-Ind Plt Ab Scrn 0.415 H 12/07/17 12/07/17 12/07/17 05:30 05:30 05:30 WBC 17.5 H RBC 3.00 L Hgb 8.7 L Hct 28.2 L MCV 93.9 MCH 29.1 MCHC 31.0 L RDW 15.8 Plt Count 75 L MPV 12.3 H Absolute Neuts (auto) 16.9 H Neutrophils % 96.8 H Neutrophils % (Manual) 96.2 H Band Neutrophils % 0.0 Lymphocytes % 1.2 L D Lymphocytes % (Manual) 3.8 L D Monocytes % 1.4 L Monocytes % (Manual) 0 L D Eosinophils % 0.0 Eosinophils % (Manual) 0.0 Basophils % 0.6 Basophils % (Manual) 0.0 Myelocytes % (Man) 0 Promyelocytes % (Man) 0 Blast Cells % (Manual) 0 Nucleated RBC % 0 Metamyelocytes 0 Hypochromia 0 Platelet Estimate Decreased Polychromasia 1+ Poikilocytosis 0 Anisocytosis 0 Microcytosis 0 Macrocytosis 0 PTT (Actin FS) 29.3 Puncture Site ABG pH ABG pCO2 at Pt Temp ABG pO2 at Pt Temp ABG HCO3 ABG O2 Sat (Measured) ABG O2 Content ABG Base Excess Bassem Test O2 Delivery Device Oxygen Flow Rate Vent Mode Vent Rate Mechanical Rate PEEP Pressure Support Vent Sodium Potassium Chloride Carbon Dioxide Anion Gap BUN Creatinine Creat Clearance w eGFR POC Glucometer Random Glucose Calcium Phosphorus Magnesium Random Vancomycin 23.1 Heparin-Ind Plt Ab Scrn 12/07/17 12/07/17 12/07/17 05:30 06:00 12:36 WBC RBC Hgb Hct MCV MCH MCHC RDW Plt Count MPV Absolute Neuts (auto) Neutrophils % Neutrophils % (Manual) Band Neutrophils % Lymphocytes % Lymphocytes % (Manual) Monocytes % Monocytes % (Manual) Eosinophils % Eosinophils % (Manual) Basophils % Basophils % (Manual) Myelocytes % (Man) Promyelocytes % (Man) Blast Cells % (Manual) Nucleated RBC % Metamyelocytes Hypochromia Platelet Estimate Polychromasia Poikilocytosis Anisocytosis Microcytosis Macrocytosis PTT (Actin FS) Puncture Site Arterial line ABG pH 7.40 ABG pCO2 at Pt Temp 58.6 H D ABG pO2 at Pt Temp 90.5 ABG HCO3 35.2 H ABG O2 Sat (Measured) 96.3 ABG O2 Content 14.1 L ABG Base Excess 9.2 H Bassem Test Positive O2 Delivery Device Mech vent Oxygen Flow Rate 75% Vent Mode A/c Vent Rate 24 Mechanical Rate Yes PEEP 0.0 Pressure Support Vent 380 Sodium 153 H Potassium 3.1 L Chloride 110 H Carbon Dioxide 34 H Anion Gap 9 BUN 113 H* Creatinine 2.3 H Creat Clearance w eGFR 28.33 POC Glucometer 258.17125 Random Glucose 151 H Calcium 8.0 L Phosphorus 6.4 H Magnesium 2.8 H Random Vancomycin Heparin-Ind Plt Ab Scrn Active Medications Current Medications Acetaminophen (Tylenol Oral Solution -) 650 mg NGT Q6H PRN PRN Reason: PAIN LEVEL 1-5 OR FEVER Last Admin: 12/05/17 20:30 Dose: 650 mg Albuterol Sulfate (Ventolin 0.083% Nebulizer Soln -) 1 amp NEB Q8H PRN PRN Reason: SHORT OF BREATH/WHEEZING Last Admin: 12/04/17 00:40 Dose: 1 amp Albuterol/Ipratropium (Duoneb -) 1 amp NEB RQID VANITA Last Admin: 12/07/17 16:35 Dose: 1 amp Amiodarone HCl (Cordarone -) 200 mg NGT BID VANITA Last Admin: 12/07/17 09:33 Dose: 200 mg Chlorhexidine Gluconate (Hibiclens For Decolonization -) 1 applic TP HS VANITA Last Admin: 12/06/17 21:19 Dose: 1 applic Diltiazem HCl (Cardizem Injection -) 10 mg IVPUSH Q4H PRN PRN Reason: TACHYCARDIA Fludrocortisone Acetate (Florinef -) 0.05 mg PO DAILY VANITA Last Admin: 12/07/17 09:34 Dose: 0.05 mg Hydrocortisone Sodium Succinate (Solu-Cortef -) 50 mg IVPUSH Q6H-IV VANITA Last Admin: 12/07/17 17:47 Dose: 50 mg Propofol (Diprivan -) 1,000,000 mcg in 100 mls @ 4.79 mls/hr IVPB TITR [facility]; Protocol Last Admin: 12/07/17 12:43 Dose: 40 mcg/kg/min, 19.16 mls/hr Meropenem 1 gm/ Dextrose 50 mls @ 200 mls/hr IVPB BID VANITA Last Admin: 12/07/17 09:34 Dose: 200 mls/hr Norepinephrine Bitartrate 8, (000 mcg/ Dextrose) 250 mls @ 3.75 mls/hr IVPB TITR [facility]; Protocol Last Titration: 12/07/17 12:06 Dose: 4 mcg/min, 7.5 mls/hr Fentanyl 500 mcg/ Dextrose 50 mls @ 10 mls/hr IVPB TITR [facility]; Protocol Last Titration: 12/07/17 18:14 Dose: 80 mcg/hr, 8 mls/hr Vasopressin 50 units/ Sodium (Chloride) 50 mls @ 2 mls/hr IVPB ASDIR [facility]; Protocol Last Admin: 12/07/17 15:58 Dose: 4 units/hr, 4 mls/hr Caspofungin 50 mg/ Sodium (Chloride) 250 mls @ 250 mls/hr IVPB Q24H [facility] Last Admin: 12/06/17 22:46 Dose: 250 mls/hr Vancomycin HCl (Vancomycin (Pre-Docked)) 1,000 mg in 250 mls @ 166.667 mls/hr IVPB Q24H [facility]; Protocol Last Admin: 12/06/17 20:55 Dose: 166.667 mls/hr Insulin Aspart (Novolog Vial Sliding Scale -) 1 vial SQ ACHS [facility]; Protocol Last Admin: 12/07/17 18:04 Dose: Not Given Insulin Detemir (Levemir Vial) 15 units SQ BID@0700,2200 [facility] Last Admin: 12/07/17 06:21 Dose: 15 units Pantoprazole Sodium (Protonix Iv) 40 mg IVPUSH BID [facility] Last Admin: 12/07/17 09:33 Dose: 40 mg Polyethylene Glycol (Miralax (For Daily Use) -) 17 gm NGT BID [facility] Last Admin: 12/07/17 09:34 Dose: Not Given Senna (Senna Oral Solution -) 8.8 mg PO HS [facility] Last Admin: 12/06/17 21:21 Dose: Not Given Sevelamer Carbonate (Renvela Powder Packet -) 0.8 gm NGT BID [facility] Last Admin: 12/07/17 09:35 Dose: 0.8 gm Tamsulosin HCl (Flomax -) 0.4 mg PO DAILY@0830 [facility] Last Admin: 12/07/17 09:33 Dose: 0.4 mg ASSESSMENT/PLAN: A 67 y.o. M w/ PMHx. ILD, chronic hypoxic respiratory failure (on 2L NC at home) , recurrent PNA, HTN, DM2, BPH, presents to the ICU with acute hypoxic respiratory failure 2/2 PNA and hypervolemia. #Pulmonology -Acute hypoxic respiratory failure 2/2 PNA and hypervolemia D/C Lasix 40mg BID D/C-ed Zosyn Started Vancomycin for MRSA coverage One-time dose of Fluconazole for empiric fungal coverage One-time Levaquin and Merrem dose for empiric Psuedomonas coverage F/u Sputum Cx. and Blood Cx. Pt. currently intubated on Propofol and Fentanyl. D/C-ed Versed Consider trying a sedation vacation to assess mental status in AM Weaned off dopamine D/C-ed Solu-medrol c/w Duonebs c/w [facility] Palliative Care Consult appreciated. -Subcutaneous Emphysema w/ associated pneumo-mediastinum likely 2/2 ruptured bleb Decreased PEEP to 0 Dr. White consulted, says there is nothing that can be done at this point will continue to monitor #Nephrology -BURKE on CKD Please Dose all meds for CrCl of 20 Extreme caution with Nephrotoxic medications Cr. now 2.3 increased from 2.2 BUN :113 Nephrology consult (Dr. Sparrow) appreciated- Dialysis not indicated at this time as Pt. is not in metabolic acidosis, hyperkalemic or fluid overloaded. We are unable to assess for uremic encephalopathy at this time as Pt. is intubated. Pt. BP is tenous necessitating pressors and therefore HD will likely be harmful. Pt. is very sensitive to being fluid overloaded because of his lung disease and therefore we cannot bolus Pt. prior to HD. LDH: 264 UA -, though growing moderate yeast FeNA: 0.4% indicating pre-renal disease FUrea: 21.6% indicating pre-renal disease (I used the BUN of 150, however the higher the BUN the more likely it is pre-renal disease) Haptoglobin: 286 Renal US wnl, small bilateral cysts, no hydronephrosis #Gastroenterology -Lower GI Bleed FOBT+ start Protonix 40mg BID GI Consult (Dr. Leo) appreciated, Pt. is not a suitable candidate for endoscopic intervention at this time. -Constipation-stable Increase Miralax to BID Started Senna D/C Reglan d/t nephrotoxicity and in light of Pt.s BURKE -Diverticulosis -stable monitor for bleeding and worsening abdominal pain monitor stool for constipation #Infectious Disease -Pyrexia w/ associated Leukocytosis to 33k RBC morphology shows few platelets Started Vancomycin for MRSA coverage BCx. positive for yeast--> D/Renato Diflucan 200mg (renally dosed)---> started Capsofungin because of Diflucan interaction with Amiodarone causing QT- prolongation. One-time dose of Fluconazole for empiric fungal coverage One-time Levaquin and Merrem dose for empiric Psuedomonas coverage F/u Sputum Cx. and Blood Cx. -Sepsis 2/2 PNA-resolved? D/C Zosyn Legionella Ag - #Cardiology -Hypotension c/w Levophed and Vasopressin to maintain MAP over 65, can try to titrate down as tolerated Started Hydrocortisone 50mg Q6H and Fludrocortisone 0.05mg Daily -Afib w/ RVR c/w Amiodarone drip D/c Digoxin -HTN Hold Losartan 100mg, Norvasc, 10mg and Metoprolol 100mg as Pt. is hypotensive A-line placed for better BP monitoring #Urology -BPH c/w Flomax #Endocrinology -DM2 ISS BGM #F/E/N -D/C IVF, restrict fluids, all medications converted to double concentrated to minimize fluid intake. -monitor electrolytes and replete as needed -D/c-ed Glucerna, started Nepro tube feeds with 60ml free water flushes ( increased from 30ml 12/02/17-per Dr. Sparrow) -NPO #PPx. -DVT D/C Heparin drip d/t GI bleed Monitor PTT, last PTT: 29.3 Heparin Ab level 0.415--> indicating HIT?
[2017-12-07] MEDS: VANCOMYCIN 1 GRAM (PRE-DOCKED) 1,000 MG/250 ML BAG IVPB SCH (21:12)
[2017-12-07 21:15] LABS: HEMOGLOBIN 8.4 GM/dL (11.7-16.9); MCH 29.3 pg (25.7-33.7); MEAN CELL VOLUME 94.5 fl (80-96); RBC 2.86 M/mm3 (4.00-5.60); WHITE BLOOD COUNT 19.7 K/mm3 (4.0-10.0)
[2017-12-07] MEDS: SENNOSIDES 8.8 MG/5 ML BULK BOTTLE PO SCH (21:22)
[2017-12-07] MEDS: CHLORHEXIDINE GLUCONATE 4% CLEANSER FOR DECOLONIZATION TP SCH (21:48)
[2017-12-07 22:10] LABS: PLATELET COUNT 75 K/MM3 (134-434)
[2017-12-07 22:42] VITALS: TEMP 99.5
[2017-12-07] MEDS: CASPOFUNGIN ACETATE 50 MG in SODIUM CHLORIDE 250 ML IVPB SCH (23:00)
[2017-12-08] MEDS ORDERED: PT OWN MED DRAWER 7, Y5N ONE (01:34)
[2017-12-08] MEDS ORDERED: fentaNYL CITRATE 250 MCG/5 ML VIAL ONE (03:01)
[2017-12-08] MEDS ORDERED: VASOPRESSIN 20 UNITS/ML VIAL IV ONE (03:09)
[2017-12-08] MEDS: HYDROCORTISONE SOD SUCCINATE 100 MG/2 ML VIAL IVPUSH SCH (03:14)
[2017-12-08 04:26] VITALS: BP 129/68; PULSE 109
[2017-12-08 06:19] LABS: ALLENS TEST POSITIVE; ARTERIAL BLD GAS O2 SATURATION 87.6 % (90-98.9); ARTERIAL BLOOD GAS BASE EXCESS 6.7 meq/l (-2-2)
[2017-12-08 06:20] LABS: ARTERIAL BLOOD GAS PCO2 78.6 mmHg (35-45); ARTERIAL BLOOD GAS pH 7.27 (7.35-7.45)
[2017-12-08 06:21] LABS: ARTERIAL BLOOD GAS PO2 64.7 mmHg (80-100)
[2017-12-08 07:19] LABS: ANION GAP 8 MMOL/L (8-16); BASO % 0.2 % (0-2.0); CALCIUM 7.9 mg/dL (8.5-10.1); CHLORIDE 114 mmol/L (98-107); CO2 35 mmol/L (21-32); CREATININE 2.5 mg/dL (0.55-1.3); EOS % 0.1 % (0-4.5); GLUCOSE,RANDOM 159 mg/dL (74-106); HEMATOCRIT 26.9 % (35.4-49); HEMOGLOBIN 8.2 GM/dL (11.7-16.9); LYMPH % 0.8 % (8-40); MAGNESIUM 2.9 mg/dL (1.8-2.4); MCH 28.8 pg (25.7-33.7); MCHC 30.5 g/dl (32.0-35.9); MEAN CELL VOLUME 94.6 fl (80-96); MEAN PLT VOLUME 12.7 fl (7.5-11.1); MONO % 2.4 % (3.8-10.2); NEUT % 96.5 % (42.8-82.8); PHOSPHOROUS 6.3 mg/dL (2.5-4.9); PLATELET COUNT 76 K/MM3 (134-434); POTASSIUM 3.8 mmol/L (3.5-5.1); RBC 2.85 M/mm3 (4.00-5.60); RDW 15.9 % (11.9-15.9); SODIUM 157 mmol/L (136-145); WHITE BLOOD COUNT 23.9 K/mm3 (4.0-10.0)
[2017-12-08 07:30] LABS: BLOOD UREA NITROGEN 119 mg/dL (7-18)
[2017-12-08 10:27] LABS: ANISOCYTOSIS 1+; MACROCYTOSIS 1+; PLATELET ESTIMATE DECREASED
--- NOTE | 2017-12-08 15:42 | DS ---
Physical Examination Vital Signs: Vital Signs Temperature 99.5 F 12/07/17 22:00 Pulse Rate 109 H 12/08/17 04:00 Respiratory Rate 27 H 12/08/17 06:15 Blood Pressure 129/68 12/08/17 04:00 O2 Sat by Pulse Oximetry (%) 93 L 12/07/17 21:00 Labs: CBC, BMP 12/08/17 05:30 12/08/17 05:30 Discharge Summary Reason For Visit: ACUTE RESPIRATORY FAILURE WITH HYPOXIA Condition: Guarded - Instructions Referrals: Sylvia Jacobs MD [Primary Care Provider] - Disposition: - Home Medications Comprehensive Discharge Medication List: Ambulatory Orders Allopurinol 300 mg PO DAILY 06/04/17 Metformin HCl [Metformin HCl ER] 500 mg PO DAILY 06/04/17 Metoprolol Succinate [Toprol Xl] 100 mg PO DAILY 06/04/17 Olmesartan/Amlodipin/Hcthiazid [Xnhpuma-Hkenyk-Emce 40-10-25Mg] 1 each PO DAILY 06/04/17 Tamsulosin HCl [Flomax -] 0.4 mg PO DAILY 06/04/17 Budesonide/Formeterol Fumarate [SYMBICORT 160/4.5mcg -] 2 puff IH BID inhaler 09/14/17 Tiotropium [place] [Spiriva] 1 puff IH DAILY cap 09/14/17 certificate filled out
== END 2017-12-08 07:05 | disposition expired | DRG 870 ==
LOC: JER 10:41 → JERBED 13:33 → J4W 20:44 → JICU 11-24 00:07
PROVIDERS: ADMIT Internal Medicine; ATTEND Internal Medicine
PROC: 0BH17EZ Insertion of Endotracheal Airway into Trachea, Via Natural or Artificial Opening (ICD-10-PCS; principal; 2017-11-25)
PROC: 5A1955Z Respiratory Ventilation, Greater than 96 Consecutive Hours (ICD-10-PCS; 2017-11-25)
PROC: 05HN33Z Insertion of Infusion Device into Left Internal Jugular Vein, Percutaneous Approach (ICD-10-PCS; 2017-12-02)
PROC: B544ZZA Ultrasonography of Left Jugular Veins, Guidance (ICD-10-PCS; 2017-12-02)
PROC: 03HC33Z Insertion of Infusion Device into Left Radial Artery, Percutaneous Approach (ICD-10-PCS; 2017-12-03)
DX: A41.89 Other specified sepsis (principal); R65.21 Severe sepsis with septic shock; J18.9 Pneumonia, unspecified organism; I50.33 Acute on chronic diastolic (congestive) heart failure; D65 Disseminated intravascular coagulation [defibrination syndrome]; J96.21 Acute and chronic respiratory failure with hypoxia; J96.22 Acute and chronic respiratory failure with hypercapnia; J84.9 Interstitial pulmonary disease, unspecified; N17.9 Acute kidney failure, unspecified; N11.9 Chronic tubulo-interstitial nephritis, unspecified; E87.0 Hyperosmolality and hypernatremia; I13.0 Hypertensive heart and chronic kidney disease with heart failure and stage 1 through stage 4 chronic kidney disease, or unspecified chronic kidney disease; K92.1 Melena; B49 Unspecified mycosis; K92.2 Gastrointestinal hemorrhage, unspecified; T79.7XXA Traumatic subcutaneous emphysema, initial encounter; J98.2 Interstitial emphysema; I48.0 Paroxysmal atrial fibrillation; M32.9 Systemic lupus erythematosus, unspecified; N40.0 Benign prostatic hyperplasia without lower urinary tract symptoms; E11.9 Type 2 diabetes mellitus without complications; J84.112 Idiopathic pulmonary fibrosis; R10.84 Generalized abdominal pain; E87.5 Hyperkalemia; E86.1 Hypovolemia; K57.30 Diverticulosis of large intestine without perforation or abscess without bleeding; I27.20 Pulmonary hypertension, unspecified; I25.10 Atherosclerotic heart disease of native coronary artery without angina pectoris; I25.2 Old myocardial infarction; R00.0 Tachycardia, unspecified; E11.22 Type 2 diabetes mellitus with diabetic chronic kidney disease; N18.2 Chronic kidney disease, stage 2 (mild); D72.829 Elevated white blood cell count, unspecified; D75.82 Heparin induced thrombocytopenia (HIT); E87.6 Hypokalemia
CPT/HCPCS: 31500; 36415; 36600; 71045-TC-FY; 71250-TC; 76775-TC; 80048; 80053; 80162; 81003; 81015; 82248; 82272; 82533; 82570; 82803; 82962; 83010; 83605; 83615; 83735; 84100; 84156; 84300; 84443; 84484; 84540; 85025; 85027; 85379; 85384; 85610; 85730; 86022; 86850; 86900; 86901; 87040; 87070; 87086; 87106; 87186; 87205; 87804; 87899; 90670; 90688; 93005; 93010; 94002; 94640; 94660; 99284-25; G0008; G0009; G0480; J0131; J0282; J0637; J1644; J7030